=== PATIENT | female | born 1945 | race Caucasian/White ===

== ENCOUNTER → 2017-04-30 | Outpatient (CLI) | payer MEDICARE ==
[2017-04-30 08:49] LABS: ALT 40 U/L (9-52); AST 25 U/L (14-36); Alkaline Phosphatase 58 U/L (38-126); Anion Gap 13 mmol/L; Bilirubin, Delta 0.3 mg/dL (0.0-0.2); Blood Urea Nitrogen 12 mg/dL (7-17); Carbon Dioxide 25 mmol/L (22-30); Chloride 105 mmol/L (98-107); Cholesterol 203 mg/dL (<200); Glucose 90 mg/dL (74-99); HDL Cholesterol 28 mg/dL (40-60); Non-African American GFR(MDRD) 53 (>60 ml/min/1.73 sqM); Potassium 3.9 mmol/L (3.5-5.1); Sodium 143 mmol/L (137-145); Total Bilirubin 0.8 mg/dL (0.2-1.3); Total Protein 7.2 g/dL (6.3-8.2); Triglycerides 241 mg/dL (<150); Uric Acid 8.3 mg/dL (3.7-7.4)
== END | disposition home or self-care (01) ==
LOC: LABWHC1 08:12
PROVIDERS: ATTEND Internal Medicine
DX: E78.5 Hyperlipidemia, unspecified (principal); I10 Essential (primary) hypertension; M10.9 Gout, unspecified
CPT/HCPCS: 36415; 80051; 80061; 80076; 82565; 82947; 84520; 84550

== ENCOUNTER → 2017-07-23 | Outpatient (CLI) | payer MEDICARE ==
--- NOTE | 2017-07-23 14:21 | US ---
EXAMINATION TYPE: US carotid duplex BILAT DATE OF EXAM: 07/23/2017 COMPARISON: NONE CLINICAL HISTORY: I22.0 Hypertention. HTN, Double vision EXAM MEASUREMENTS: RIGHT: Peak Systolic Velocity (PSV) cm/sec ----- Right CCA: 102.2 ----- Right ICA: 113.5 ----- Right ECA: 204.7 ICA/CCA ratio: 1.1 RIGHT: End Diastole cm/sec ----- Right CCA: 19.3 ----- Right ICA: 24.1 ----- Right ECA: 15.4 LEFT: Peak Systolic Velocity (PSV) cm/sec ----- Left CCA: 73.0 ----- Left ICA: 117.4 ----- Left ECA: 149.7 ICA/CCA ratio: 1.6 LEFT: End Diastole cm/sec ----- Left CCA: 11.0 ----- Left ICA: 29.3 ----- Left ECA: 0.0 VERTEBRALS (direction of flow): Right Vertebral: Antegrade Left Vertebral: Antegrade Rhythm: Normal Bilateral ECA velocity. No significant stenosis. Wall thickening seen bilaterally. Plaque in bilat eral bulbs. Branch seen in left distal CCA. IMPRESSION: There is plaque noted bilaterally but no evidence of significant hemodynamic stenosis by carotid Doppler ultrasound indirect measurements (50% or less ). Criteria for Assigning % of Stenosis / Diameter reduction (Estimation based on the indirect measurements of the internal carotid artery velocities (ICA PSV). 1. Normal (no stenosis)=ICA PSV < 125 cm/s: ratio < 2.0: ICA EDV<40 cm/s. 2. Less than 50% stenosis=ICA PSV < 125 cm/s: ratio < 2.0: ICA EDV<40 cm/s. 3. 50 to 69% stenosis=ICA PSV of 125 to 230 cm/s: ration 2.0 ? 4.0: ICA EDV 40-100 cm/s. 4. Greater than 70% stenosis to near occlusion= ICA PSV > 230 cm/s: ratio > 4.0: ICA EDV > 100 cm/s. 5. Near occlusion= ICA PSV velocities may be low or undetectable: variable ratio and ICA EDV. 6. Total occlusion=unable to detect flow.
--- NOTE | 2017-07-23 19:10 | ECHOF ---
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 This was a technically adequate study. The left ventricular size is normal. There is mild concentric left ventricular hypertrophy. Overall left ventricular systolic function is normal with, an EF between 55 - 60 %. The right ventricle is normal in size. LA is moderately dilated 34-39 ml/m2 The right atrial size is normal. There is mild aortic stenosis present. Peak/mean gradient across the Aortic Valve is 22.53mmHg / 11.52mmHg. Mild mitral annular calcification present. Mild mitral regurgitation is present. Mild tricuspid regurgitation present. There is no evidence of pulmonary hypertension. The right ventricular systolic pressure, as measured by Doppler, is 10.65mmHg. There is no pulmonic regurgitation present. The aortic root size is normal. There is no pericardial effusion. CONCLUSIONS -------- 1. The left ventricular size is normal. 2. There is no evidence of pulmonary hypertension. 3. The right ventricular systolic pressure, as measured by Doppler, is 10.65mmHg. 4. There is no pulmonic regurgitation present. 5. The aortic root size is normal. 6. There is no pericardial effusion. 7. There is mild concentric left ventricular hypertrophy. 8. Overall left ventricular systolic function is normal with, an EF between 55 - 60 %. 9. LA is moderately dilated 34-39 ml/m2 10. There is mild aortic stenosis present. 11. Peak/mean gradient across the Aortic Valve is 22.53mmHg / 11.52mmHg. 12. Mild mitral annular calcification present. 13. Mild mitral regurgitation is present. 14. Mild tricuspid regurgitation present. [employer]AST[employer] HAND[employer] TECHNICIAN: Nica Hernandez RDCS
== END | disposition home or self-care (01) ==
LOC: RADUSMAIN 12:43
PROVIDERS: ATTEND Internal Medicine
DX: I65.23 Occlusion and stenosis of bilateral carotid arteries (principal); I08.3 Combined rheumatic disorders of mitral, aortic and tricuspid valves; I27.0 Primary pulmonary hypertension
CPT/HCPCS: 93306; 93880

== ENCOUNTER → 2017-10-11 | Outpatient (CLI) | payer MEDICARE ==
[2017-10-11 15:54] LABS: Blood Urea Nitrogen 21 mg/dL (7-17); Non-African American GFR(MDRD) 55 (>60 ml/min/1.73 sqM)
== END | disposition home or self-care (01) ==
LOC: LABWHC1 15:15
PROVIDERS: ATTEND Psychiatry & Neurology Pain Medicine
DX: Z01.812 Encounter for preprocedural laboratory examination (principal); H53.8 Other visual disturbances; E87.8 Other disorders of electrolyte and fluid balance, not elsewhere classified
CPT/HCPCS: 36415; 82565; 84520

== ENCOUNTER 2018-01-27 09:54 | Inpatient (IN) | payer MEDICARE ==
[2018-01-27] MEDS ORDERED: IPRATROPIUM-ALBUTEROL 3 ML NEB INHALATION STA (10:14)
--- NOTE | 2018-01-27 10:16 | ED ---
General Adult HPI - General Chief complaint: Shortness of Breath Stated complaint: SOB Time Seen by Provider: 01/27/18 10:04 Source: patient, RN notes reviewed Mode of arrival: wheelchair Limitations: no limitations - History of Present Illness Initial comments: 72-year-old female presenting with 3 week history of worsening cough and dyspnea. Patient states her cough is nonproductive. She has been experiencing subjective fever and chills primarily in the evenings. Denies any chest pain. States she was diagnosed with pneumonia, started on antibiotics steroids and breathing treatments, she failed to improve. She has been seen by her physician twice over the past 3 weeks. Patient states she's also had some epigastric and bilateral abdominal pain, no vomiting or diarrhea. Denies unilateral leg swelling, states she does have some mild bilateral lower extremity swelling. No calf tenderness. - Related Data Home Medications Medication Instructions Recorded Confirmed Bisoprolol-Hctz 10-6.25 mg [Ziac 1 tab PO PC-SUPPER 01/20/15 01/27/18 10-6.25 MG] Albuterol Nebulized [Ventolin 2.5 mg INHALATION RT-TID 01/27/18 01/27/18 Nebulized] Fluticasone/Vilanterol [Breo 1 inhalation PO RT-DAILY 01/27/18 01/27/18 Ellipta 100-25 Mcg Inhaler] Allergies Allergy/AdvReac Type Severity Reaction Status Date / Time atorvastatin calcium Allergy Swelling Verified 01/27/18 10:34 [From Lipitor] benazepril Allergy irregular Verified 01/27/18 10:34 heart rate amlodipine AdvReac muscle Verified 01/27/18 10:34 cramps Review of Systems ROS Statement: Those systems with pertinent positive or pertinent negative responses have been documented in the HPI. ROS Other: All systems not noted in ROS Statement are negative. Past Medical History Past Medical History: Hyperlipidemia, Hypertension History of Any Multi-Drug Resistant Organisms: None Reported Additional Past Surgical History / Comment(s): "bird breeder disease", vaginal polyps, lung biopsy 2006 d and c Past Psychological History: No Psychological Hx Reported Smoking Status: Former smoker Past Alcohol Use History: Rare Past Drug Use History: None Reported General Exam Limitations: no limitations General appearance: alert, in no apparent distress, appears intoxicated Eye exam: Present: normal appearance, PERRL Neck exam: Present: normal inspection. Absent: tenderness, meningismus Respiratory exam: Present: other (Good air entry, intermittent cough). Absent: respiratory distress Cardiovascular Exam: Present: regular rate, normal rhythm GI/Abdominal exam: Present: soft, tenderness (Mild epigastric tenderness). Absent: distended, guarding Extremities exam: Present: normal inspection, normal capillary refill. Absent: pedal edema, calf tenderness Neurological exam: Present: alert, oriented X3, CN II-XII intact. Absent: motor sensory deficit Psychiatric exam: Present: normal affect, normal mood Skin exam: Present: warm, dry, intact. Absent: cyanosis, diaphoretic Course Vital Signs 01/27/18 01/27/18 01/27/18 09:56 11:27 11:30 Temperature 97.1 F L Pulse Rate 96 82 84 Respiratory 18 20 Rate Blood Pressure 138/82 141/83 O2 Sat by Pulse 94 L 98 Oximetry 01/27/18 11:41 Temperature Pulse Rate 84 Respiratory Rate Blood Pressure O2 Sat by Pulse Oximetry EKG Findings - EKG Comments: EKG Findings:: EKG, normal sinus rhythm, incomplete left bundle, there is T- wave inversion and ST segment depression in aVL, and V5 and V6, there is T-wave inversion with Q waves in lead 3 and aVF. EKG obtained at 1046 Medical Decision Making - Medical Decision Making 72-year-old female presenting with dyspnea for 3 weeks as well as upper abdominal pain. Patient's pain has been constant over the past 3 weeks. She denies any chest pain. EKG is concerning for ischemia. Laboratory studies are obtained, and case is discussed with cardiology on-call Dr. Cook. Patient has significant lab abnormalities, including elevated white blood cell count, although she has been on steroids. D-dimer is 1.96, CAT scan is ordered , however this is unable to be obtained secondary to poor IV access. Given the ischemic changes on EKG, the patient has been heparinized prior computed tomography scan, she will go to the [facility] with cardiology, PE can be further evaluated after heart cath. Patient's troponin is elevated 0.325. Chest x-ray pending. Patient's symptoms of dyspnea and upper abdominal pain have been present for the past 2-3 weeks. They've been constant according to the patient. EKG changes are new compared to EKG in 2015. Patient taken to [facility] for elevated troponin and non-ST segment elevated OR. - Lab Data Result diagrams: 01/27/18 10:50 01/27/18 10:50 Lab Results 01/27/18 01/27/18 01/27/18 Range/Units 10:30 10:50 10:50 WBC 15.9 H (3.8-10.6) k/uL RBC 4.48 (3.80-5.40) m/uL Hgb 13.8 (11.4-16.0) gm/dL Hct 41.5 (34.0-46.0) % MCV 92.6 (80.0-100.0) fL MCH 30.7 (25.0-35.0) pg MCHC 33.2 (31.0-37.0) g/dL RDW 15.1 (11.5-15.5) % Plt Count 279 (150-450) k/uL Neutrophils % 88 % Lymphocytes % 6 % Monocytes % 3 % Eosinophils % 2 % Basophils % 0 % Neutrophils # 14.0 H (1.3-7.7) k/uL Lymphocytes # 0.9 L (1.0-4.8) k/uL Monocytes # 0.5 (0-1.0) k/uL Eosinophils # 0.3 (0-0.7) k/uL Basophils # 0.1 (0-0.2) k/uL PT (9.0-12.0) sec INR (<1.2) APTT (22.0-30.0) sec D-Dimer (<0.60) mg/L FEU Sodium (137-145) mmol/L Potassium (3.5-5.1) mmol/L Chloride (98-107) mmol/L Carbon Dioxide (22-30) mmol/L Anion Gap mmol/L BUN (7-17) mg/dL Creatinine (0.52-1.04) mg/dL Est GFR (CKD-EPI)AfAm (>60 ml/min/1.73 sqM) Est GFR (CKD-EPI)NonAf (>60 ml/min/1.73 sqM) Glucose (74-99) mg/dL Calcium (8.4-10.2) mg/dL Magnesium (1.6-2.3) mg/dL Total Bilirubin (0.2-1.3) mg/dL AST (14-36) U/L ALT (9-52) U/L Alkaline Phosphatase (38-126) U/L Total Creatine Kinase 40 (30-135) U/L CK-MB (CK-2) 1.6 (0.0-2.4) ng/mL CK-MB (CK-2) Rel Index 4.0 Troponin I 0.325 H* (0.000-0.034) ng/mL NT-Pro-B Natriuret Pep pg/mL Total Protein (6.3-8.2) g/dL Albumin (3.5-5.0) g/dL Lipase (23-300) U/L Influenza Type A RNA Not Detected (Not Detectd) Influenza Type B (PCR) Not Detected (Not Detectd) 01/27/18 01/27/18 01/27/18 Range/Units 10:50 10:50 10:50 WBC (3.8-10.6) k/uL RBC (3.80-5.40) m/uL Hgb (11.4-16.0) gm/dL Hct (34.0-46.0) % MCV (80.0-100.0) fL MCH (25.0-35.0) pg MCHC (31.0-37.0) g/dL RDW (11.5-15.5) % Plt Count (150-450) k/uL Neutrophils % % Lymphocytes % % Monocytes % % Eosinophils % % Basophils % % Neutrophils # (1.3-7.7) k/uL Lymphocytes # (1.0-4.8) k/uL Monocytes # (0-1.0) k/uL Eosinophils # (0-0.7) k/uL Basophils # (0-0.2) k/uL PT 11.2 (9.0-12.0) sec INR 1.2 H (<1.2) APTT 23.1 (22.0-30.0) sec D-Dimer 1.96 H (<0.60) mg/L FEU Sodium 142 (137-145) mmol/L Potassium 4.2 (3.5-5.1) mmol/L Chloride 105 (98-107) mmol/L Carbon Dioxide 23 (22-30) mmol/L Anion Gap 14 mmol/L BUN 27 H (7-17) mg/dL Creatinine 0.89 (0.52-1.04) mg/dL Est GFR (CKD-EPI)AfAm 76 (>60 ml/min/1.73 sqM) Est GFR (CKD-EPI)NonAf 66 (>60 ml/min/1.73 sqM) Glucose 186 H (74-99) mg/dL Calcium 9.4 (8.4-10.2) mg/dL Magnesium 1.9 (1.6-2.3) mg/dL Total Bilirubin 1.5 H (0.2-1.3) mg/dL AST 63 H (14-36) U/L ALT 101 H (9-52) U/L Alkaline Phosphatase 45 (38-126) U/L Total Creatine Kinase (30-135) U/L CK-MB (CK-2) (0.0-2.4) ng/mL CK-MB (CK-2) Rel Index Troponin I (0.000-0.034) ng/mL NT-Pro-B Natriuret Pep 9100 pg/mL Total Protein 6.1 L (6.3-8.2) g/dL Albumin 3.3 L (3.5-5.0) g/dL Lipase (23-300) U/L Influenza Type A RNA (Not Detectd) Influenza Type B (PCR) (Not Detectd) 01/27/18 Range/Units 10:50 WBC (3.8-10.6) k/uL RBC (3.80-5.40) m/uL Hgb (11.4-16.0) gm/dL Hct (34.0-46.0) % MCV (80.0-100.0) fL MCH (25.0-35.0) pg MCHC (31.0-37.0) g/dL RDW (11.5-15.5) % Plt Count (150-450) k/uL Neutrophils % % Lymphocytes % % Monocytes % % Eosinophils % % Basophils % % Neutrophils # (1.3-7.7) k/uL Lymphocytes # (1.0-4.8) k/uL Monocytes # (0-1.0) k/uL Eosinophils # (0-0.7) k/uL Basophils # (0-0.2) k/uL PT (9.0-12.0) sec INR (<1.2) APTT (22.0-30.0) sec D-Dimer (<0.60) mg/L FEU Sodium (137-145) mmol/L Potassium (3.5-5.1) mmol/L Chloride (98-107) mmol/L Carbon Dioxide (22-30) mmol/L Anion Gap mmol/L BUN (7-17) mg/dL Creatinine (0.52-1.04) mg/dL Est GFR (CKD-EPI)AfAm (>60 ml/min/1.73 sqM) Est GFR (CKD-EPI)NonAf (>60 ml/min/1.73 sqM) Glucose (74-99) mg/dL Calcium (8.4-10.2) mg/dL Magnesium (1.6-2.3) mg/dL Total Bilirubin (0.2-1.3) mg/dL AST (14-36) U/L ALT (9-52) U/L Alkaline Phosphatase (38-126) U/L Total Creatine Kinase (30-135) U/L CK-MB (CK-2) (0.0-2.4) ng/mL CK-MB (CK-2) Rel Index Troponin I (0.000-0.034) ng/mL NT-Pro-B Natriuret Pep pg/mL Total Protein (6.3-8.2) g/dL Albumin (3.5-5.0) g/dL Lipase 279 (23-300) U/L Influenza Type A RNA (Not Detectd) Influenza Type B (PCR) (Not Detectd) Critical Care Time Critical Care Time: Yes Total Critical Care Time: 35 Disposition Clinical Impression: NSTEMI (non-ST elevated myocardial infarction), Elevated d-dimer Disposition: ADMITTED IP TO THIS HOSP Condition: Serious Referrals: Ramón Pollack MD [Primary Care Provider] - 1-2 days Decision to Admit Reason: Admit from EC Decision Date: 01/27/18 Decision Time: 13:21
[2018-01-27] MEDS ORDERED: ASPIRIN 325 MG TAB PO STA (10:50)
[2018-01-27 11:06] LABS: Basophils # (A) 0.1 k/uL (0-0.2); Basophils % (A) 0 %; Eosinophils # (A) 0.3 k/uL (0-0.7); Eosinophils % (A) 2 %; HCT 41.5 % (34.0-46.0); HGB 13.8 gm/dL (11.4-16.0); Lymphocytes # (A) 0.9 k/uL (1.0-4.8); Lymphocytes % (A) 6 %; MCH 30.7 pg (25.0-35.0); MCHC 33.2 g/dL (31.0-37.0); MCV 92.6 fL (80.0-100.0); Mean Platelet Volume 7.1; Monocytes # (A) 0.5 k/uL (0-1.0); Monocytes % (A) 3 %; Neutrophils % (A) 88 %; Platelet Count 279 k/uL (150-450); RBC 4.48 m/uL (3.80-5.40); RDW 15.1 % (11.5-15.5); WBC 15.9 k/uL (3.8-10.6)
[2018-01-27] MEDS ORDERED: HEPARIN SODIUM,PORCINE 5,000 UNIT/ML 1 ML VIAL IV ONE (11:13)
[2018-01-27] MEDS ORDERED: HEPARIN SODIUM,PORCINE 5,000 UNIT/ML 1 ML VIAL IV PRN (11:13)
[2018-01-27 11:17] LABS: Albumin 3.3 g/dL (3.5-5.0); Calcium 9.4 mg/dL (8.4-10.2); Magnesium 1.9 mg/dL (1.6-2.3); Potassium 4.2 mmol/L (3.5-5.1); Total Bilirubin 1.5 mg/dL (0.2-1.3); Total Protein 6.1 g/dL (6.3-8.2)
[2018-01-27 11:18] LABS: D-Dimer 1.96 mg/L FEU (<0.60); INR 1.2 (<1.2); Partial Thromboplastin Time 23.1 sec (22.0-30.0); Prothrombin Time 11.2 sec (9.0-12.0)
[2018-01-27 11:35] LABS: Creatine Kinase MB 1.6 ng/mL (0.0-2.4)
[2018-01-27] MEDS ORDERED: RX INFO: IV CONTRAST WAS GIVEN 1 EACH MISC MISCELLANE PRN ×2 (11:39→14:11)
[2018-01-27 11:42] LABS: Troponin I 0.325 ng/mL (0.000-0.034)
[2018-01-27] MEDS: HEPARIN SOD,PORK IN 0.45% NACL 25,000 UNIT in 0.45% NACL 1 500ML.BAG IV SCH (11:51)
[2018-01-27] MEDS ORDERED: FUROSEMIDE 10 MG/ML 4 ML VIAL IV STA (12:07)
[2018-01-27] MEDS ORDERED: NALOXONE 0.4 MG/ML 1 ML VIAL IV PRN (13:08)
[2018-01-27] MEDS ORDERED: LIDOCAINE 2% INJ 20 MG/ML (20 ML MDV) ONE (13:39)
[2018-01-27] MEDS ORDERED: MIDAZOLAM 2 MG/2 ML VIAL ONE (13:40)
[2018-01-27] MEDS ORDERED: SODIUM CHLORIDE 0.9% 1,000 ML IV ONE (13:43)
[2018-01-27] MEDS ORDERED: MIDAZOLAM 2 MG/2 ML VIAL IV ONE (13:48)
[2018-01-27] MEDS ORDERED: LIDOCAINE 2% INJ 20 MG/ML SQ ONE (13:50)
[2018-01-27] MEDS ORDERED: FUROSEMIDE 10 MG/ML 4 ML VIAL ONE (14:01)
[2018-01-27] MEDS ORDERED: FUROSEMIDE 10 MG/ML 4 ML VIAL IV ONE (14:05)
[2018-01-27] MEDS ORDERED: IOPAMIDOL-370 125ML BTL INJ ONE (14:06)
[2018-01-27] MEDS ORDERED: SODIUM CHLORIDE 0.9% 1,000 ML IV SCH (14:15)
--- NOTE | 2018-01-27 14:17 | P.CRDCN ---
History of Present Illness Consult date: 01/27/18 Chief complaint: Shortness of breath History of present illness: This is a pleasant 73-year-old female patient with a past medical history significant for hypertension and dyslipidemia with no documented history of coronary artery disease or congestive heart failure presented to the hospital complaining of shortness of breath for the last 3 weeks. The patient stated that the shortness of breath was started about 3 weeks ago. Beside that she describes epigastric discomfort. She stated she developed bilateral lower extremities edema and she was seen by her primary care physician who put her on Lasix with improvement in the edema. The patient did not have any symptoms of chest pain or discomfort, dizziness or lightheadedness , or any syncope. She does have epigastric discomfort mainly. The EKG showed sinus rhythm with nonspecific changes in the inferior leads. There was also some ST and T wave abnormalities seems to be diffuse. Beside that the d-dimer came in to be abnormal and the patient is in process to have a CTA of the chest to rule out any PE. The BNP came in to be also severely abnormal and the patient was given Lasix IV in the emergency room. The first set of troponin also came in to be slightly abnormal. On physical examination, the patient does have bilateral crackles in both lung almanzar. There was very mild bilateral lower extremities edema noted. 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 The patient tolerated the procedure very well. The left ventricular end-diastolic pressure was about 45 mmHg. Past Medical History Past Medical History: Hyperlipidemia, Hypertension History of Any Multi-Drug Resistant Organisms: None Reported Additional Past Surgical History / Comment(s): "bird breeder disease", vaginal polyps, lung biopsy 2006 d and c Past Psychological History: No Psychological Hx Reported Smoking Status: Former smoker Past Alcohol Use History: Rare Past Drug Use History: None Reported Medications and Allergies Home Medications Medication Instructions Recorded Confirmed Type Bisoprolol-Hctz 10-6.25 mg [Ziac 1 tab PO PC-SUPPER 01/20/15 01/27/18 History 10-6.25 MG] Albuterol Nebulized [Ventolin 2.5 mg INHALATION RT-TID 01/27/18 01/27/18 History Nebulized] Fluticasone/Vilanterol [Breo 1 inhalation PO RT-DAILY 01/27/18 01/27/18 History Ellipta 100-25 Mcg Inhaler] Allergies Allergy/AdvReac Type Severity Reaction Status Date / Time atorvastatin calcium Allergy Swelling Verified 01/27/18 10:34 [From Lipitor] benazepril Allergy irregular Verified 01/27/18 10:34 heart rate amlodipine AdvReac muscle Verified 01/27/18 10:34 cramps Physical Exam Vitals: Vital Signs Temp Pulse Resp BP Pulse Ox 01/27/18 11:41 84 01/27/18 11:30 84 20 141/83 98 01/27/18 11:27 82 01/27/18 09:56 97.1 F L 96 18 138/82 94 L Intake and Output 01/26/18 01/27/18 01/27/18 22:59 06:59 14:59 Other: Weight 81.647 kg - Constitutional General appearance: mild distress - Respiratory Respiratory: bilateral: rales - Cardiovascular Rhythm: regular Heart sounds: normal: S1, S2 Results 01/27/18 10:50 01/27/18 10:50 Cardiac Enzymes 01/27/18 01/27/18 Range/Units 10:50 10:50 AST 63 H (14-36) U/L CK-MB (CK-2) 1.6 (0.0-2.4) ng/mL Troponin I 0.325 H* (0.000-0.034) ng/mL Coagulation 01/27/18 Range/Units 10:50 PT 11.2 (9.0-12.0) sec APTT 23.1 (22.0-30.0) sec CBC 01/27/18 Range/Units 10:50 WBC 15.9 H (3.8-10.6) k/uL RBC 4.48 (3.80-5.40) m/uL Hgb 13.8 (11.4-16.0) gm/dL Hct 41.5 (34.0-46.0) % Plt Count 279 (150-450) k/uL Comprehensive Metabolic Panel 01/27/18 Range/Units 10:50 Sodium 142 (137-145) mmol/L Potassium 4.2 (3.5-5.1) mmol/L Chloride 105 (98-107) mmol/L Carbon Dioxide 23 (22-30) mmol/L BUN 27 H (7-17) mg/dL Creatinine 0.89 (0.52-1.04) mg/dL Glucose 186 H (74-99) mg/dL Calcium 9.4 (8.4-10.2) mg/dL AST 63 H (14-36) U/L ALT 101 H (9-52) U/L Alkaline Phosphatase 45 (38-126) U/L Total Protein 6.1 L (6.3-8.2) g/dL Albumin 3.3 L (3.5-5.0) g/dL Current Medications Generic Name Dose Route Start Last Admin Trade Name Freq PRN Reason Stop Dose Admin Heparin Sodium (Porcine) 0 unit 01/27/18 11:13 Heparin IV PER PROTOCOL PRN Low PTT Protocol Heparin Sodium/Sodium Chloride 500 mls @ 19.59 mls/hr 01/27/18 11:15 11:51 25,000 unit/ Sodium Chloride IV 12 units/kg/hr .Q24H ERIN 19.59 mls/hr Protocol Administration 12 UNITS/KG/HR Miscellaneous Information 1 each 01/27/18 11:39 Rx Info: Iv Contrast Was Given MISCELLANE 01/29/18 11:39 DAILY PRN Per Protocol Intake and Output 01/26/18 01/27/18 01/27/18 22:59 06:59 14:59 Other: Weight 81.647 kg Patient Weight 01/28/18 06:59 Weight 81.647 kg 01/27/18 10:50 01/27/18 10:50 Assessment and Plan Assessment: assessment #1 severe triple-vessel coronary artery disease #2 severe ischemic cardiomyopathy. #3 congestive heart failure exacerbation secondary to systolic dysfunction #4 hypertension #5 dyslipidemia Plan #1 I will start the patient on aspirin, metoprolol, lisinopril, and Aldactone. #2 add Lasix IV to the current medical treatment as well #3 continue monitor the kidney function and electrolytes #4 follow-up on the echocardiogram #5 obtain a consult from cardiothoracic surgeon for the evaluation for CABG #6 ICU admission #7 follow-up with the patient. Thank you for allowing us participate in her care and we'll continue following up with the patient
[2018-01-27 15:13] LABS: Glucose,Whole Blood 87 mg/dL (75-99)
--- NOTE | 2018-01-27 15:53 | XR ---
EXAMINATION TYPE: XR chest 1V portable DATE OF EXAM: 01/27/2018 COMPARISON: 07/16/2010 HISTORY: Preop cardiac surgery TECHNIQUE: Single frontal view of the chest is obtained. FINDINGS: Diffuse interstitial pattern and cardiomegaly. No pleural effusion or pneumothorax. No con solidation. Arthropathy of the shoulders. IMPRESSION: 1. Diffuse interstitial pattern with cardiomegaly correlate for venous congestion. Otherwise consider interstitial pneumonitis or atypical pneumonia.
[2018-01-27 15:54] LABS: Appearance,Urine Clear (Clear); Bacteria,Urine Rare /hpf; Bilirubin,Urine Negative (Negative); Blood,Urine Small (Negative); Color,Urine Colorless; Glucose,Urine (UA) Negative (Negative); Ketones,Urine Negative (Negative); Leukocyte Esterase,Urine Negative (Negative); Mucus,Urine Rare /hpf; Nitrite,Urine Negative (Negative); PH, Urine 6.5 (5.0-8.0); Protein,Urine Negative (Negative); RBC,Urine 1 /hpf (0-5); Specific Gravity,Urine 1.005 (1.001-1.035); Squamous Epithelial Cell,Urine <1 /hpf (0-4); Urobilinogen,Urine <2.0 mg/dL (<2.0); WBC,Urine <1 /hpf (0-5)
--- NOTE | 2018-01-27 16:19 | CC ---
CARDIAC CATHETERIZATION REPORT DATE OF SERVICE: January 27, 2018 PERFORMING PHYSICIAN: Domingo Cook MD, fuel assembler. PROCEDURE PERFORMED: 1. Selective right and left coronary angiogram. 2. Left heart catheterization. INDICATION: This is a pleasant 72-year-old female patient who presented to the emergency room with 3 weeks history of shortness of breath. She was in mild congestive heart failure exacerbation. The cardiac enzymes came in to be slightly abnormal. The BNP came into be severely elevated. The EKG showed some ST changes in the inferolateral leads. APPROACH: Right common femoral artery. COMPLICATION: None. LEVEL OF SEDATION: Moderate with sedation length of 14 minutes. PROCEDURE DESCRIPTION: After obtaining an informed consent, the patient was brought to cardiac microbiological lab technician. The right common femoral artery was cannulated using micropuncture technique and a micropuncture wire passed easily, then I placed a 6-Amharic sheath in the right common femoral artery. After that, I did selective right and left coronary angiogram using JR4 and JL4 catheters. Left heart catheterization was performed using a pigtail catheter. The procedure was completed without any complication. SELECTIVE CORONARY ANGIOGRAM: 1. The RCA is chronically occluded in the midportion. 2. The left main has a critical lesion appeared to be in the range of 80% to 90%. It bifurcates into left circumflex and left anterior descending artery. 3. Left circumflex is a medium caliber vessel and it is a nondominant vessel. The ostial circ appeared to be involved in the plaque from the left main and appeared to be diseased in the range of 70-80%. The proximal circ appeared to have mild disease only and gives rise into a medium size OM branch which seems to be angiographically normal. The left circumflex continues after that as a medium caliber vessel in the AV groove. 4. The LAD: The ostial LAD is involved in the plaque from the left main and the plaque seems to be in the range of 70%. The proximal LAD has another tubular lesion in the range of 70% to 80%. The mid and distal LAD appear to have mild disease only. The LAD gives rise into a large sized diagonal branch which bifurcates into 2 subbranches and appeared to have mild disease only. CONCLUSION: 1. Chronic total occlusion of the RCA. 2. Critical disease involving the left main. 3. Critical disease involving the ostial left circumflex. 4. Critical disease involving the ostial and proximal LAD. POSTPROCEDURE MANAGEMENT: Patient to be evaluated for coronary artery bypass grafting. MMODL / IJN: [id number] /
--- NOTE | 2018-01-27 16:28 | P.GSCN ---
History of Present Illness Consult date: 01/27/18 Reason for Consult: Symptomatic multivessel coronary artery disease, non-ST elevated myocardial infarction this admission. Myocardial revascularization recommendations. Requesting physician: Domingo Cook History of present illness: This is a 72-year-old female patient who is followed by Dr. Pollack on an outpatient basis. The patient has a medical history significant for hypertension , hyperlipidemia, gout, obesity with a BMI of 32.9, recent history of pneumonia , and remote history of nicotine dependence in which she quit smoking 30 years ago. Recently, the patient has had complaints of shortness of breath and bilateral lower leg swelling over the past 2-3 weeks. She reports, early this morning she felt that her shortness of breath has progressively been getting worse and had complaints of pain and tightness to her neck which radiated to her ears. She also has complaints of right upper quadrant abdominal pain. The patient denies any complaints of nausea, vomiting, dizziness or syncope. According to the patient and her daughter, over the last 2 weeks she has been evaluated by Dr. Pollack. Due to the patient's symptomology she completed a course of oral antibiotic treatment for a pneumonia, cough medicine, a steroid Medrol pack and Lasix. Her laboratory results on admission showed a WBC count of 15.9 , BUN 27, creatinine 0.89, glucose of 186, AST 63, ALT 101, and a troponin of 0.325. A 12-lead EKG was completed which showed normal sinus rhythm with nonspecific changes in her inferior leads with a heart rate 84 bpm. Subsequently the patient was seen by Dr. Cook from cardiology and was taken for an urgent heart catheterization which demonstrated an 80% stenosis to her left main coronary artery, a totally occluded right coronary artery, and 80% stenosis to her circumflex coronary artery, and an 80% stenosis to her proximal left anterior descending coronary artery. Due to the patient's presenting symptoms and cardiac catheterization results, a consult was placed to Dr. Thuan Segura from cardiothoracic surgery to evaluate the patient for myocardial revascularization surgery. Review of Systems A 14 point review of systems was completed and was negative except as mentioned in HPI. 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 History of Any Multi-Drug Resistant Organisms: None Reported Additional Past Surgical History / Comment(s): "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, D&C-vaginal polyps. Past Anesthesia/Blood Transfusion Reactions: No Reported Reaction Past Psychological History: No Psychological Hx Reported Smoking Status: Former smoker (Quit 30 years ago.) Past Alcohol Use History: None Reported, Rare Past Drug Use History: None Reported - Past Family History Mother Family Medical History: Myocardial Infarction ([place]) ( from myocardial infarction at age 69.) Father Family Medical History: Myocardial Infarction ([place]) ( from a pericardial infarction at age 69) Brother(s) Family Medical History: Neurologic Disorder (Multiple sclerosis) Sister(s) Family Medical History: Cancer (Breast and uterine), Myocardial Infarction (LA) (At age 68) Medications and Allergies Home Medications Medication Instructions Recorded Confirmed Type Bisoprolol-Hctz 10-6.25 mg [Ziac 1 tab PO PC-SUPPER 01/20/15 01/27/18 History 10-6.25 MG] Albuterol Nebulized [Ventolin 2.5 mg INHALATION RT-TID 01/27/18 01/27/18 History Nebulized] Fluticasone/Vilanterol [Breo 1 inhalation PO RT-DAILY 01/27/18 01/27/18 History Ellipta 100-25 Mcg Inhaler] Allergies Allergy/AdvReac Type Severity Reaction Status Date / Time atorvastatin calcium Allergy Swelling Verified 01/27/18 10:34 [From Lipitor] benazepril Allergy irregular Verified 01/27/18 10:34 heart rate amlodipine AdvReac muscle Verified 01/27/18 10:34 cramps Surgical - Exam Vital Signs Temp Pulse Resp BP Pulse Ox 97.1 F L 96 18 138/82 94 L 01/27/18 09:56 01/27/18 09:56 01/27/18 09:56 01/27/18 09:56 01/27/18 09:56 - General well developed, well nourished, no distress, moderate pain (Right upper quadrant abdomen), obese - Eyes PERRL, normal ocular movement - ENT normal pinna, normal nares, normal mucosa, no hearing loss, no congestion, dentures - Neck Neck is supple, no lymphadenopathy, no thyroidomegaly. no masses, no bruits, trachea midline, no venous distension - Respiratory Few scattered crackles to her bilateral bases. Respirations are symmetrical and nonlabored. Oxygen saturation are 98% on 4 L nasal cannula. - Cardiovascular Regular rhythm and rate. S1 and S2 present, negative for S3, gallop or murmur. +2 edema to her bilateral lower extremities. Bedside telemetry showing sinus rhythm heart rate 71. - Abdomen Active bowel sounds to all 4 abdominal quadrants. No organomegaly, no guarding or rigidity. Abdomen: soft, tender (To her right upper quadrant) - Genitourinary Deferred - Rectum Deferred - Integumentary no rash, no growths, no abnormal pigmentation - Neurologic normal coordination, normal sensation - Musculoskeletal normal gait, normal posture - Psychiatric oriented to time, oriented to person, oriented to place, speech is normal, memory intact Results - Labs 01/27/18 10:50 01/27/18 10:50 Abnormal Lab Results - Last 24 Hours (Table) 01/27/18 01/27/18 01/27/18 Range/Units 10:50 10:50 10:50 WBC 15.9 H (3.8-10.6) k/uL Neutrophils # 14.0 H (1.3-7.7) k/uL Lymphocytes # 0.9 L (1.0-4.8) k/uL INR (<1.2) D-Dimer (<0.60) mg/L FEU BUN 27 H (7-17) mg/dL Glucose 186 H (74-99) mg/dL Total Bilirubin 1.5 H (0.2-1.3) mg/dL AST 63 H (14-36) U/L ALT 101 H (9-52) U/L Troponin I 0.325 H* (0.000-0.034) ng/mL Total Protein 6.1 L (6.3-8.2) g/dL Albumin 3.3 L (3.5-5.0) g/dL Triglycerides (<150) mg/dL LDL Cholesterol, Calc (0-99) mg/dL HDL Cholesterol (40-60) mg/dL 01/27/18 01/27/18 Range/Units 10:50 10:50 WBC (3.8-10.6) k/uL Neutrophils # (1.3-7.7) k/uL Lymphocytes # (1.0-4.8) k/uL INR 1.2 H (<1.2) D-Dimer 1.96 H (<0.60) mg/L FEU BUN (7-17) mg/dL Glucose (74-99) mg/dL Total Bilirubin (0.2-1.3) mg/dL AST (14-36) U/L ALT (9-52) U/L Troponin I (0.000-0.034) ng/mL Total Protein (6.3-8.2) g/dL Albumin (3.5-5.0) g/dL Triglycerides 172 H (<150) mg/dL LDL Cholesterol, Calc 113 H (0-99) mg/dL HDL Cholesterol 30 L (40-60) mg/dL Diabetes panel 01/27/18 01/27/18 Range/Units 10:50 10:50 Sodium 142 (137-145) mmol/L Potassium 4.2 (3.5-5.1) mmol/L Chloride 105 (98-107) mmol/L Carbon Dioxide 23 (22-30) mmol/L BUN 27 H (7-17) mg/dL Creatinine 0.89 (0.52-1.04) mg/dL Glucose 186 H (74-99) mg/dL Calcium 9.4 (8.4-10.2) mg/dL AST 63 H (14-36) U/L ALT 101 H (9-52) U/L Alkaline Phosphatase 45 (38-126) U/L Total Protein 6.1 L (6.3-8.2) g/dL Albumin 3.3 L (3.5-5.0) g/dL Triglycerides 172 H (<150) mg/dL HDL Cholesterol 30 L (40-60) mg/dL Thyroid panel 01/27/18 Range/Units 10:50 TSH 3.030 (0.465-4.680) mIU/L Calcium panel 01/27/18 Range/Units 10:50 Calcium 9.4 (8.4-10.2) mg/dL Albumin 3.3 L (3.5-5.0) g/dL Pituitary panel 01/27/18 01/27/18 Range/Units 10:50 10:50 Sodium 142 (137-145) mmol/L Potassium 4.2 (3.5-5.1) mmol/L Chloride 105 (98-107) mmol/L Carbon Dioxide 23 (22-30) mmol/L BUN 27 H (7-17) mg/dL Creatinine 0.89 (0.52-1.04) mg/dL Glucose 186 H (74-99) mg/dL Calcium 9.4 (8.4-10.2) mg/dL TSH 3.030 (0.465-4.680) mIU/L Adrenal panel 01/27/18 Range/Units 10:50 Sodium 142 (137-145) mmol/L Potassium 4.2 (3.5-5.1) mmol/L Chloride 105 (98-107) mmol/L Carbon Dioxide 23 (22-30) mmol/L BUN 27 H (7-17) mg/dL Creatinine 0.89 (0.52-1.04) mg/dL Glucose 186 H (74-99) mg/dL Calcium 9.4 (8.4-10.2) mg/dL Total Bilirubin 1.5 H (0.2-1.3) mg/dL AST 63 H (14-36) U/L ALT 101 H (9-52) U/L Alkaline Phosphatase 45 (38-126) U/L Total Protein 6.1 L (6.3-8.2) g/dL Albumin 3.3 L (3.5-5.0) g/dL - Imaging Chest x-ray: image reviewed EKG: image reviewed Assessment and Plan (1) Coronary artery disease Current Visit: Yes Status: Acute Code(s): I25.10 - ATHSCL HEART DISEASE OF [place] CORONARY ARTERY W/O ANG PCTRS SNOMED Code(s): 71705911 (2) Hypertension Current Visit: Yes Status: Acute Code(s): I10 - ESSENTIAL (PRIMARY) HYPERTENSION SNOMED Code(s): 40852612 (3) Hyperlipidemia Current Visit: Yes Status: Acute Code(s): E78.5 - HYPERLIPIDEMIA, UNSPECIFIED SNOMED Code(s): 62578829 (4) Acute exacerbation of congestive heart failure Current Visit: Yes Status: Acute Code(s): I50.9 - HEART FAILURE, UNSPECIFIED SNOMED Code(s): 92717367 (5) Ischemic cardiomyopathy Current Visit: Yes Status: Acute Code(s): I25.5 - ISCHEMIC CARDIOMYOPATHY SNOMED Code(s): 719004731 (6) Elevated d-dimer Current Visit: Yes Status: Acute Code(s): R79.89 - OTHER SPECIFIED ABNORMAL FINDINGS OF BLOOD CHEMISTRY SNOMED Code(s): 273776935 (7) NSTEMI (non-ST elevated myocardial infarction) Current Visit: Yes Status: Acute Code(s): I21.4 - NON-ST ELEVATION (NSTEMI) MYOCARDIAL INFARCTION SNOMED Code(s): 631617432 Plan: The patient was seen and examined. Her chart and diagnostics were reviewed. The patient was seen and examined by Dr. Thuan Segura. Preoperative testing initiated. Preoperative teaching initiated. Her heart catheterization results were discussed with the patient by Dr. Segura, risks and benefits of surgery were discussed with the patient. The patient would like to proceed with myocardial revascularization surgery and will be scheduled for myocardial revascularization surgery early next week. Recommendations to optimize her medically, treating her congestive heart failure exacerbation with diuretics. Continue to maximize her medical therapy with aspirin, metoprolol, SCAR inhibitor and statin. We will continue to follow the patient, further recommendations to follow. Thank you Dr. Cook. for this consult and we look for to working with you in the care of your patient. Time with Patient: Greater than 30
[2018-01-27] MEDS: CRESTOR 20 MG PO SCH (20:59)
[2018-01-27] MEDS ORDERED: NON-FORMULARY DRUG ONE (21:00)
[2018-01-27] MEDS ORDERED: ATORVASTATIN 80 MG TAB PO SCH (21:00)
[2018-01-27] MEDS ORDERED: MD COMMUNICATION TO PHARMACY 1 EACH MISC PO SCH (21:00)
[2018-01-27] MEDS: FUROSEMIDE 10 MG/ML 4 ML VIAL IV SCH (21:01)
--- NOTE | 2018-01-27 23:01 | P.HPIM ---
History of Present Illness H&P Date: 01/27/18 Chief Complaint: Shortness of breath Patient is a 72-year-old female with a known history of hypertension, hyperlipidemia came to ER with complaints of exertional shortness of breath worsening for the past 3 weeks. Patient says that her shortness of breath started about 3 weeks ago which get worse when she walks or does any work. Patient is also complaining of epigastric discomfort and felt like a bandlike sensation across the abdomen. Patient was seen by her primary care physician. Patient was treated with antibiotics steroids and breathing treatments but failed to improve. Patient was also given Lasix for her lower action edema which has improved with. Patient has been experiencing symptoms for the past 3 weeks and unable to tolerate any more which made her to come to ER. Patient otherwise denied any fever or chills. Patient does have nausea. No diarrhea. Daryl EKG showed sinus with nonspecific inferior leads BNP 9100 Troponin 0.325 Patient was seen by cardiology and was taken to cardiac catheterization which revealed triple vessel disease. Currently cardiac surgery has been consulted. Patient does have elevated d-dimer 1.96 Chest x-ray showed diffuse interstitial pattern with cardiomegaly Correlate for pulmonary venous congestion. Review of Systems Constitutional: Patient denies any fever or chills . No generalized weakness or weight loss. Abdomen: Patient denied nausea vomiting and diarrhea and abdominal pain. Cardiovascular: Epigastric chest discomfort. Exertional shortness of breath leg swelling Respiratory: patient denied any cough is from production. No shortness of breath Neurologic: Patient denied any numbness or tingling headache. Musculoskeletal: Patient denies any complaints of joint swelling or deformity. Skin: Negative Psychiatric: Negative Endocrine: No heat or cold intolerance. No recent weight gain. Genitourinary: No dysuria or hematuria. 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 History of Any Multi-Drug Resistant Organisms: None Reported Additional Past Surgical History / Comment(s): "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, D&C-vaginal polyps. Past Anesthesia/Blood Transfusion Reactions: No Reported Reaction Past Psychological History: No Psychological Hx Reported Smoking Status: Former smoker (Quit 30 years ago.) Past Alcohol Use History: None Reported, Rare Past Drug Use History: None Reported - Past Family History Mother Family Medical History: Myocardial Infarction ([place]) ( from myocardial infarction at age 69.) Father Family Medical History: Myocardial Infarction (ID) ( from a pericardial infarction at age 69) Brother(s) Family Medical History: Neurologic Disorder (Multiple sclerosis) Sister(s) Family Medical History: Cancer (Breast and uterine), Myocardial Infarction ([place]) (At age 68) Medications and Allergies Home Medications Medication Instructions Recorded Confirmed Type Bisoprolol-Hctz 10-6.25 mg [Ziac 1 tab PO PC-SUPPER 01/20/15 01/27/18 History 10-6.25 MG] Albuterol Nebulized [Ventolin 2.5 mg INHALATION RT-TID 01/27/18 01/27/18 History Nebulized] Fluticasone/Vilanterol [Breo 1 inhalation PO RT-DAILY 01/27/18 01/27/18 History Ellipta 100-25 Mcg Inhaler] Allergies Allergy/AdvReac Type Severity Reaction Status Date / Time atorvastatin calcium Allergy Swelling Verified 01/27/18 10:34 [From Lipitor] benazepril Allergy irregular Verified 01/27/18 10:34 heart rate amlodipine AdvReac muscle Verified 01/27/18 10:34 cramps Physical Exam Vitals: Vital Signs Temp Pulse Resp BP Pulse Ox 01/27/18 15:00 72 22 98 01/27/18 14:56 97.9 F 78 20 120/79 98 01/27/18 13:00 22 01/27/18 11:41 84 01/27/18 11:30 84 20 141/83 98 01/27/18 11:27 82 01/27/18 09:56 97.1 F L 96 18 138/82 94 L Intake and Output 01/27/18 01/27/18 01/27/18 06:59 14:59 22:59 Intake Total 200 Balance 200 Intake: IV 200 Other: Weight 81.647 kg PHYSICAL EXAMINATION: Patient is lying in the bed comfortably, no acute distress, awake alert and oriented.. HEENT: Normocephalic. Neck is supple. Pupils reactive. Nostrils clear. Oral cavity is moist. Ears reveal no drainage. Neck reveals no JVD, carotid bruits, or thyromegaly. CHEST EXAMINATION: Trachea is central. Symmetrical expansion. Bibasilar crackles. No wheezing noted rhonchi. CARDIAC: Normal S1, S2 with no gallops. No murmurs ABDOMEN: Soft. Bowel sounds normal. No organomegaly. No abdominal bruits. Extremities: Trace edema. No clubbing or cyanosis Neurologically awake, alert, oriented x3 with well-coordinated movements. No focal deficits noted Skin: No rash or skin lesions. Psychiatric: Cooperative. Nonsuicidal Musculoskeletal: No joint swelling or deformity. Normal range of motion. Results CBC & Chem 7: 01/27/18 10:50 01/27/18 10:50 Labs: Abnormal Lab Results - Last 24 Hours (Table) 01/27/18 01/27/18 01/27/18 Range/Units 10:50 10:50 10:50 WBC 15.9 H (3.8-10.6) k/uL Neutrophils # 14.0 H (1.3-7.7) k/uL Lymphocytes # 0.9 L (1.0-4.8) k/uL INR (<1.2) D-Dimer (<0.60) mg/L FEU BUN 27 H (7-17) mg/dL Glucose 186 H (74-99) mg/dL Total Bilirubin 1.5 H (0.2-1.3) mg/dL AST 63 H (14-36) U/L ALT 101 H (9-52) U/L Troponin I 0.325 H* (0.000-0.034) ng/mL Total Protein 6.1 L (6.3-8.2) g/dL Albumin 3.3 L (3.5-5.0) g/dL Triglycerides (<150) mg/dL LDL Cholesterol, Calc (0-99) mg/dL HDL Cholesterol (40-60) mg/dL Urine Blood (Negative) Urine Bacteria (None) /hpf Urine Mucus (None) /hpf 01/27/18 01/27/18 01/27/18 Range/Units 10:50 10:50 15:36 WBC (3.8-10.6) k/uL Neutrophils # (1.3-7.7) k/uL Lymphocytes # (1.0-4.8) k/uL INR 1.2 H (<1.2) D-Dimer 1.96 H (<0.60) mg/L FEU BUN (7-17) mg/dL Glucose (74-99) mg/dL Total Bilirubin (0.2-1.3) mg/dL AST (14-36) U/L ALT (9-52) U/L Troponin I (0.000-0.034) ng/mL Total Protein (6.3-8.2) g/dL Albumin (3.5-5.0) g/dL Triglycerides 172 H (<150) mg/dL LDL Cholesterol, Calc 113 H (0-99) mg/dL HDL Cholesterol 30 L (40-60) mg/dL Urine Blood Small H (Negative) Urine Bacteria Rare H (None) /hpf Urine Mucus Rare H (None) /hpf Thrombosis Risk Factor Assmnt - DVT/VTE Prophylaxis DVT/VTE Prophylaxis: Pharmacologic Prophylaxis ordered - Choose All That Apply Each Factor Represents 1 point: Acute ID, Medical pt on bed rest Each Risk Factor Represents 2 Points: Age 61-74 years Thrombosis Risk Factor Assessment Total Risk Factor Score: 4 Thrombosis Risk Factor Assessment Level: Moderate Risk Assessment and Plan Assessment: Acute non-ST elevated ID. Status post Cardiac catheterization showed triple- vessel disease Exertional shortness of breath Acute CHF with systolic dysfunction Severe ischemic myopathy Leukocytosis. Likely reactive. Follow-up repeat CBC tomorrow Hypertension hyperlipidemia Obesity Plan: Patient will be continued on IV Lasix. Continue with the aspirin statins and metoprolol and lisinopril and Aldactone. Cardiology and cardiac surgery is following. We'll continue to monitor renal function. Follow-up CBC and BMP tomorrow. Continue to monitor the patient in ICU. Further recommendations based on the clinical course. Prognosis is guarded. Time with Patient: Greater than 30
[2018-01-27] MEDS: METOPROLOL TARTRATE 12.5 MG TAB PO SCH (23:27)
[2018-01-28 05:35] LABS: Basophils # (A) 0.1 k/uL (0-0.2); Basophils % (A) 1 %; Eosinophils # (A) 0.4 k/uL (0-0.7); Eosinophils % (A) 3 %; HGB 13.9 gm/dL (11.4-16.0); Lymphocytes # (A) 1.3 k/uL (1.0-4.8); Lymphocytes % (A) 9 %; MCH 30.6 pg (25.0-35.0); MCHC 33.1 g/dL (31.0-37.0); MCV 92.5 fL (80.0-100.0); Mean Platelet Volume 7.6; Monocytes # (A) 0.7 k/uL (0-1.0); Monocytes % (A) 5 %; Neutrophils # (A) 12.5 k/uL (1.3-7.7); Neutrophils % (A) 83 %; Platelet Count 271 k/uL (150-450); RBC 4.55 m/uL (3.80-5.40); RDW 15.3 % (11.5-15.5); WBC 15.1 k/uL (3.8-10.6)
[2018-01-28 05:53] LABS: Calcium 9.1 mg/dL (8.4-10.2); Potassium 3.7 mmol/L (3.5-5.1)
[2018-01-28] MEDS: ASPIRIN 325 MG TAB PO SCH (08:19)
[2018-01-28] MEDS: METOPROLOL TARTRATE 12.5 MG TAB PO SCH ×2 (08:19→20:18)
[2018-01-28] MEDS: FUROSEMIDE 10 MG/ML 4 ML VIAL IV SCH ×2 (08:20→20:17)
[2018-01-28] MEDS: SPIRONOLACTONE 25 MG TAB PO SCH (08:20)
[2018-01-28] MEDS ORDERED: LISINOPRIL 2.5 MG TAB PO SCH (09:00)
--- NOTE | 2018-01-28 09:35 | XR ---
EXAMINATION TYPE: XR chest 1V DATE OF EXAM: 01/28/2018 COMPARISON: 01/27/2018 HISTORY: Shortness of breath TECHNIQUE: Single frontal view of the chest is obtained. FINDINGS: Diffuse interstitial pattern and cardiomegaly. No pleural effusion or pneumothorax. No con solidation. Arthropathy of the shoulders. IMPRESSION: 1. Diffuse interstitial pattern with cardiomegaly correlate for venous congestion. Otherwise consider interstitial pneumonitis or atypical pneumonia. Findings are stable from prior exam.
--- NOTE | 2018-01-28 10:03 | P.PN ---
Subjective Progress Note Date: 01/28/18 Principal diagnosis: Acute coronary syndrome This is a pleasant 73-year-old female patient with a past medical history significant for hypertension and dyslipidemia with no documented history of coronary artery disease or congestive heart failure presented to the hospital complaining of shortness of breath for the last 3 weeks. The patient stated that the shortness of breath was started about 3 weeks ago. Beside that she describes epigastric discomfort. She stated she developed bilateral lower extremities edema and she was seen by her primary care physician who put her on Lasix with improvement in the edema. The patient did not have any symptoms of chest pain or discomfort, dizziness or lightheadedness , or any syncope. She does have epigastric discomfort mainly. The EKG showed sinus rhythm with nonspecific changes in the inferior leads. There was also some ST and T wave abnormalities seems to be diffuse. Beside that the d-dimer came in to be abnormal and the patient is in process to have a CTA of the chest to rule out any PE. The BNP came in to be also severely abnormal and the patient was given Lasix IV in the emergency room. The first set of troponin also came in to be slightly abnormal. The patient underwent an emergent heart catheterization and that revealed severe triple-vessel coronary artery disease. She was seen and evaluated by cardiothoracic surgeon and the plan is to proceed with CABG this coming Wednesday. Meanwhile I will continue the patient on the current medical treatment which include aspirin, metoprolol, Lasix, as well as Aldactone. Beside that she is on statin and lisinopril. The echocardiogram revealed impaired LV function with an ejection fraction of 25-30%. Objective - Vital Signs Vital signs: Vital Signs Temp 98.2 F 01/28/18 09:00 Pulse 60 01/28/18 09:00 Resp 22 01/28/18 09:00 BP 110/65 01/28/18 09:00 Pulse Ox 95 01/28/18 09:00 Intake & Output 01/27/18 01/28/18 01/28/18 18:59 06:59 18:59 Intake Total 500 790 60 Output Total 1250 2250 Balance -750 -1460 60 Weight 81.647 kg 81 kg Intake: IV 500 790 60 Sodium Chloride 0.9% 1, 300 790 60 000 ml @ 75 mls/hr IV . [id number] [facility] Rx#:[id number] Output: Urine 1250 2250 Other: Voiding Method Bedside Commode # Voids 0 0 # Bowel Movements 0 0 - Constitutional General appearance: Present: no acute distress - Respiratory Respiratory: bilateral: CTA - Cardiovascular Rhythm: regular Heart sounds: normal: S1, S2 - Labs CBC & Chem 7: 01/28/18 04:59 01/28/18 04:59 Labs: Abnormal Lab Results - Last 24 Hours (Table) 01/27/18 01/27/18 01/27/18 Range/Units 10:50 10:50 10:50 WBC 15.9 H (3.8-10.6) k/uL Neutrophils # 14.0 H (1.3-7.7) k/uL Lymphocytes # 0.9 L (1.0-4.8) k/uL INR (<1.2) D-Dimer (<0.60) mg/L FEU BUN 27 H (7-17) mg/dL Glucose 186 H (74-99) mg/dL Total Bilirubin 1.5 H (0.2-1.3) mg/dL AST 63 H (14-36) U/L ALT 101 H (9-52) U/L Troponin I 0.325 H* (0.000-0.034) ng/mL Total Protein 6.1 L (6.3-8.2) g/dL Albumin 3.3 L (3.5-5.0) g/dL Triglycerides (<150) mg/dL LDL Cholesterol, Calc (0-99) mg/dL HDL Cholesterol (40-60) mg/dL Urine Blood (Negative) Urine Bacteria (None) /hpf Urine Mucus (None) /hpf 01/27/18 01/27/18 01/27/18 Range/Units 10:50 10:50 15:36 WBC (3.8-10.6) k/uL Neutrophils # (1.3-7.7) k/uL Lymphocytes # (1.0-4.8) k/uL INR 1.2 H (<1.2) D-Dimer 1.96 H (<0.60) mg/L FEU BUN (7-17) mg/dL Glucose (74-99) mg/dL Total Bilirubin (0.2-1.3) mg/dL AST (14-36) U/L ALT (9-52) U/L Troponin I (0.000-0.034) ng/mL Total Protein (6.3-8.2) g/dL Albumin (3.5-5.0) g/dL Triglycerides 172 H (<150) mg/dL LDL Cholesterol, Calc 113 H (0-99) mg/dL HDL Cholesterol 30 L (40-60) mg/dL Urine Blood Small H (Negative) Urine Bacteria Rare H (None) /hpf Urine Mucus Rare H (None) /hpf 01/28/18 01/28/18 01/28/18 Range/Units 04:59 04:59 04:59 WBC 15.1 H (3.8-10.6) k/uL Neutrophils # 12.5 H (1.3-7.7) k/uL Lymphocytes # (1.0-4.8) k/uL INR (<1.2) D-Dimer (<0.60) mg/L FEU BUN 25 H (7-17) mg/dL Glucose (74-99) mg/dL Total Bilirubin (0.2-1.3) mg/dL AST (14-36) U/L ALT (9-52) U/L Troponin I 3.640 H* (0.000-0.034) ng/mL Total Protein (6.3-8.2) g/dL Albumin (3.5-5.0) g/dL Triglycerides (<150) mg/dL LDL Cholesterol, Calc (0-99) mg/dL HDL Cholesterol (40-60) mg/dL Urine Blood (Negative) Urine Bacteria (None) /hpf Urine Mucus (None) /hpf Microbiology - Last 24 Hours (Table) 01/27/18 15:36 Urine Culture - Preliminary Urine,Voided 01/27/18 18:30 Nasal Screen MRSA/MSSA (NAHOMY) - Preliminary Nasal Swab Assessment and Plan Assessment: assessment #1 severe triple-vessel coronary artery disease #2 severe ischemic cardiomyopathy. #3 congestive heart failure exacerbation secondary to systolic dysfunction #4 hypertension #5 dyslipidemia Plan #1 continue the current medical treatment as described above #2 the plan is to proceed with open heart and stomach Wednesday. #3 continue monitor the kidney function and electrolytes #4 follow-up with the patient Thank you for allowing us participate in her care and we'll continue following up with the patient
[2018-01-28] MEDS: MUPIROCIN 2% OINT 22 GM TUBE TOPICAL SCH ×2 (10:16→20:18)
[2018-01-28] MEDS: HEPARIN SOD,PORK IN 0.45% NACL 25,000 UNIT in 0.45% NACL 1 500ML.BAG IV SCH (10:16)
[2018-01-28] MEDS ORDERED: MD COMMUNICATION TO PHARMACY 1 EACH MISC PO ONE ×4 (10:36)
--- NOTE | 2018-01-28 10:47 | ECHOF ---
Referral Reason:sob MEASUREMENTS -------- HEIGHT: 157.5 cm WEIGHT: 81.7 kg BP: RVIDd: 3.4 cm (< 3.3) IVSd: 0.8 cm (0.6 - 1.1) LVIDd: 5.3 cm (3.9 - 5.3) LVPWd: 1.4 cm (0.6 - 1.1) IVSs: 1.0 cm LVIDs: 4.9 cm LVPWs: 1.5 cm LAESV Index (A-L): 34.20 ml/m Ao Diam: 2.5 cm (2.0 - 3.7) AV Cusp: 1.1 cm (1.5 - 2.6) LA Diam: 4.4 cm (2.7 - 3.8) MV EXCURSION: 13.546 mm (> 18.000) MV EF SLOPE: 45 mm/s (70 - 150) EPSS: 2.3 cm MV E Jose Juan: 1.03 m/s MV DecT: 121 ms MV A Jose Juan: 0.32 m/s MV E/A Ratio: 3.20 RAP: 5.00 mmHg RVSP: 68.45 mmHg FINDINGS -------- Sinus rhythm. This was a techncally difficult study with suboptimal views, , Lumason utilized for enhancement of im ages. The left ventricular size is normal. Left ventricular wall thickness is normal. There is moderate global hypokinesis of LV . Overall left ventricular systolic function is severely impaired with, a n EF between 25 - 30 %. Anterseptal Hypokinesis Inferior Hypokinesis Septal Hypokinesis Wingina Hypokinesis. The right ventricle is mild to moderately enlarged. LA is moderately dilated 34-39 ml/m2 The right atrial size is normal. 5.0mg OF Lumason UTLIZED: 2 OR MORE WALL SEGMENTS NOT VISUALIZED. The aortic valve is trileaflet, and appears structurally normal. No aortic stenosis or regurgitation. Mild mitral regurgitation is present. Mild tricuspid regurgitation present. There is moderate pulmonary hypertension. The right ventric ular systolic pressure, as measured by Doppler, is 68.45mmHg. There is no pulmonic regurgitation present. The aortic root size is normal. There is no pericardial effusion. CONCLUSIONS -------- 1. This was a techncally difficult study with suboptimal views, , Lumason utilized for enhancement of images. 2. The left ventricular size is normal. 3. Left ventricular wall thickness is normal. 4. There is moderate global hypokinesis of LV . 5. Overall left ventricular systolic function is severely impaired with, an EF between 25 - 30 %. 6. Anterseptal Hypokinesis 7. Inferior Hypokinesis 8. Septal Hypokinesis 9. Wingina Hypokinesis. 10. The right ventricle is mild to moderately enlarged. 11. LA is moderately dilated 34-39 ml/m2 12. The right atrial size is normal. 13. 5.0mg OF Lumason UTLIZED: 2 OR MORE WALL SEGMENTS NOT VISUALIZED. 14. The aortic valve is trileaflet, and appears structurally normal. No aortic stenosis or regurgitat ion. 15. Mild mitral regurgitation is present. 16. Mild tricuspid regurgitation present. 17. There is moderate pulmonary hypertension. 18. The right ventricular systolic pressure, as measured by Doppler, is 68.45mmHg. 19. There is no pulmonic regurgitation present. 20. The aortic root size is normal. 21. There is no pericardial effusion. SOCIAL DIRECTOR: Nica Hernandez RDCS
--- NOTE | 2018-01-28 11:45 | P.CNPUL ---
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 Patient used to be a heavy smoker, however she quit over 10 years ago. She was admitted this time with recurrent episodes of shortness of breath, cough, and wheezing. Patient has been on multiple courses of antibiotics, and prednisone by her primary care physician, however over the last 3 weeks, she has not been noticing significant improvement. Finally she came into the emergency room, and this time she was describing shortness of breath, epigastric discomfort, and significant fluid retention and swelling in her lower extremities. Chest x- ray was suggestive of mild interstitial edema. Patient was seen by cardiology on consultation, CT angiogram of the chest showed no evidence of pulmonary embolism. Her BNP level was elevated, patient did receive IV Lasix, and her troponin was also noted to be abnormal. Underwent cardiac catheterization, and she was found to have chronic total occlusion of the RCA with critical disease involving the left main and ostial left circumflex and ostial LAD. Her left ventricular end-diastolic pressure was 45. Patient was seen by cardiothoracic surgery on consultation, and she would likely undergo myocardial revascularization on early Wednesday. Considering her previous pulmonary history, I was asked to see her on consultation. Apparently since admission the patient responded well to diuretics, she is also on DuoNeb updrafts, and seems to be doing much better compared to how she felt upon admission. Hardly any cough, no wheezing, no fever, no chills, no hemoptysis, no chest pain. Patient felt better since admission. Chest x-ray continues to show mild interstitial pattern with minimal venous congestion, felt to be more of interstitial edema, improving with diuretics. Likely, patient sounded fairly clear, no wheezing, no crackles, no rhonchi. Review of Systems 14 point review of systems were obtained, please refer to pertinent positives in HPI otherwise remaining systems are negative. 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 History of Any Multi-Drug Resistant Organisms: None Reported Additional Past Surgical History / Comment(s): "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, D&C-vaginal polyps. Past Anesthesia/Blood Transfusion Reactions: No Reported Reaction Past Psychological History: No Psychological Hx Reported Smoking Status: Former smoker (Quit 30 years ago.) Past Alcohol Use History: None Reported, Rare Past Drug Use History: None Reported - Past Family History Mother Family Medical History: Myocardial Infarction ([place]) ( from myocardial infarction at age 69.) Father Family Medical History: Myocardial Infarction ([place]) ( from a pericardial infarction at age 69) Brother(s) Family Medical History: Neurologic Disorder (Multiple sclerosis) Sister(s) Family Medical History: Cancer (Breast and uterine), Myocardial Infarction ([place]) (At age 68) Medications and Allergies Home Medications Medication Instructions Recorded Confirmed Type Bisoprolol-Hctz 10-6.25 mg [Ziac 1 tab PO PC-SUPPER 01/20/15 01/27/18 History 10-6.25 MG] Albuterol Nebulized [Ventolin 2.5 mg INHALATION RT-TID 01/27/18 01/27/18 History Nebulized] Fluticasone/Vilanterol [Breo 1 inhalation PO RT-DAILY 01/27/18 01/27/18 History Ellipta 100-25 Mcg Inhaler] Allergies Allergy/AdvReac Type Severity Reaction Status Date / Time atorvastatin calcium Allergy Swelling Verified 01/27/18 10:34 [From Lipitor] benazepril Allergy irregular Verified 01/27/18 10:34 heart rate amlodipine AdvReac muscle Verified 01/27/18 10:34 cramps Physical Exam Vitals: Vital Signs Temp Pulse Resp BP Pulse Ox 01/28/18 11:00 59 L 22 117/69 93 L 01/28/18 10:00 61 18 115/60 95 01/28/18 09:00 98.2 F 60 22 110/65 95 01/28/18 08:00 60 22 119/64 94 L 01/28/18 07:00 56 L 25 H 116/58 95 01/28/18 06:00 60 19 108/57 95 01/28/18 05:00 56 L 31 H 110/66 93 L 01/28/18 04:00 57 L 19 109/59 96 01/28/18 03:00 97.7 F 56 L 24 104/54 94 L 01/28/18 02:00 54 L 20 103/56 90 L 01/28/18 01:00 55 L 21 101/56 95 01/28/18 00:00 60 27 H 115/64 91 L 01/27/18 23:23 59 L 20 120/74 92 L 01/27/18 23:00 57 L 24 112/62 91 L 01/27/18 22:00 65 20 126/73 94 L 01/27/18 21:00 64 26 H 118/63 93 L 01/27/18 20:00 97.5 F L 64 28 H 118/70 93 L 01/27/18 19:00 64 22 119/71 94 L 01/27/18 18:00 62 18 118/68 95 01/27/18 17:00 98.4 F 60 25 H 116/62 95 01/27/18 16:00 71 29 H 119/75 95 01/27/18 15:00 72 22 98 01/27/18 14:56 97.9 F 78 20 120/79 98 01/27/18 13:00 22 01/27/18 11:41 84 Intake and Output 01/27/18 01/28/18 01/28/18 22:59 06:59 14:59 Intake Total 600 490 539.143 Output Total 2150 1350 1100 Balance -1550 -860 -560.857 Intake: IV 600 490 100 Sodium Chloride 0.9% 1, 600 490 100 000 ml @ 75 mls/hr IV . [id number] ERIN Rx#:[id number] Intake, IV Titration 439.143 Amount Heparin Sod,Pork in 0.45% 439.143 NaCl 25,000 unit In 0.45 % NaCl 1 500ml.bag @ 12 UNITS/KG/HR 19.59 mls/hr IV .Q24H ERIN Rx#: [id number] Output: Urine 2150 1350 1100 Other: Voiding Method Bedside Commode # Voids 0 0 0 # Bowel Movements 0 0 Weight 81 kg Physical Exam: Revealed a 72-year-old female, pleasant, resting in bed, in no form of respiratory distress. Head: Atraumatic, normocephalic. Eyes: PERRLA, EOMI, no icterus HEENT:[ Moist mucous membranes, Neck is supple.] [No neck masses.] [No thyromegaly.] [No JVD.] Chest: [Clear throughout, no crackles, no rhonchi, no wheezes.] Cardiac Exam: [Normal S1 and S2, no S3 gallop, no murmur.] Abdomen: [Soft, nontender, no megaly, no rebound, no guarding, normal bowel sounds.] Extremities: [No clubbing, trace of bipedal edema, no cyanosis.] Good pulses noted bilaterally Neurological Exam: [No focal neurologic deficit. Psychiatric: Normal mood and affect, normal mental status examination. Lymphatics: No lymphadenopathy. Musculoskeletal normal range of motion, no deformities. No weakness was noted.] Results - Laboratory Findings CBC and BMP: 01/28/18 04:59 01/28/18 04:59 PT/INR, D-dimer PT 11.2 sec (9.0-12.0) 01/27/18 10:50 INR 1.2 (<1.2) H 01/27/18 10:50 D-Dimer 1.96 mg/L FEU (<0.60) H 01/27/18 10:50 Abnormal lab findings: Abnormal Labs 01/27/18 01/27/18 01/27/18 10:50 10:50 10:50 WBC 15.9 H Neutrophils # 14.0 H Lymphocytes # 0.9 L INR D-Dimer BUN 27 H Glucose 186 H Total Bilirubin 1.5 H AST 63 H ALT 101 H Troponin I 0.325 H* Total Protein 6.1 L Albumin 3.3 L Triglycerides LDL Cholesterol, Calc HDL Cholesterol Urine Blood Urine Bacteria Urine Mucus 01/27/18 01/27/18 01/27/18 10:50 10:50 15:36 WBC Neutrophils # Lymphocytes # INR 1.2 H D-Dimer 1.96 H BUN Glucose Total Bilirubin AST ALT Troponin I Total Protein Albumin Triglycerides 172 H LDL Cholesterol, Calc 113 H HDL Cholesterol 30 L Urine Blood Small H Urine Bacteria Rare H Urine Mucus Rare H 01/28/18 01/28/18 01/28/18 04:59 04:59 04:59 WBC 15.1 H Neutrophils # 12.5 H Lymphocytes # INR D-Dimer BUN 25 H Glucose Total Bilirubin AST ALT Troponin I 3.640 H* Total Protein Albumin Triglycerides LDL Cholesterol, Calc HDL Cholesterol Urine Blood Urine Bacteria Urine Mucus - Diagnostic Findings Chest x-ray: image reviewed (As noted in HPI.) Assessment and Plan Assessment: Impression: 1 acute non-ST elevation myocardial infarction 2 severe triple-vessel coronary artery disease 3 severe ischemic cardiomyopathy 4 acute systolic congestive heart failure, 4 history of multiple comorbidities including hypertension, dyslipidemia, extrinsic ALLERGIC alveolitis, possible mild component of COPD related to her previous remote smoking history. Recommendation: Patient seems to be doing well presently, she is much improved compared to how she felt on admission. Chest x-ray labs were all reviewed, bedside PFT will be requested, this will be done over the weekend. Continue diuretics, bronchodilators, no need for IV steroids at this point. We will continue to follow. Patient is considered low operative risk at this point. Time with Patient: Greater than 30
--- NOTE | 2018-01-28 12:20 | P.PN ---
Subjective Progress Note Date: 01/28/18 Principal diagnosis: Symptomatic multivessel coronary artery disease, with left main disease, non-ST elevated myocardial infarction this admission, congestive heart failure exacerbation secondary to systolic dysfunction, severe ischemic cardiomyopathy, hypertension, dyslipidemia. The patient is sitting up to the bedside chair. She is in no acute distress. She reports that she feels much improved today, she denies any complaints of pain or shortness of breath at this time. Her oxygen saturations are 95% on 2 L nasal cannula, she is achieving 1000 mL on her incentive spirometry. A bedside FEV1 was completed yesterday which was 65% of her predicted value. She is complaining of blurred vision which she states she has had for several months. Objective - Vital Signs Vital signs: Vital Signs Temp 98.2 F 01/28/18 09:00 Pulse 59 L 01/28/18 11:00 Resp 22 01/28/18 11:00 BP 117/69 01/28/18 11:00 Pulse Ox 93 L 01/28/18 11:00 Intake & Output 01/27/18 01/28/18 01/28/18 18:59 06:59 18:59 Intake Total 500 790 539.143 Output Total 1250 2250 1100 Balance -750 -1460 -560.857 Weight 81.647 kg 81 kg Intake: IV 500 790 100 Sodium Chloride 0.9% 1, 300 790 100 000 ml @ 75 mls/hr IV . [id number] ERIN Rx#:[id number] Intake, IV Titration 439.143 Amount Heparin Sod,Pork in 0.45% 439.143 NaCl 25,000 unit In 0.45 % NaCl 1 500ml.bag @ 12 UNITS/KG/HR 19.59 mls/hr IV .Q24H ERIN Rx#: [id number] Output: Urine 1250 2250 1100 Other: Voiding Method Bedside Commode # Voids 0 0 # Bowel Movements 0 0 - Constitutional General appearance: Present: cooperative, no acute distress, obese - EENT ENT: Present: hearing grossly normal - Neck Details: Neck is supple, no JVD, no lymphadenopathy. - Respiratory Details: Lung sounds with few scattered crackles to her bilateral bases. Respirations are symmetrical and nonlabored. Oxygen saturation are 95% on 2 L nasal cannula. She is achieving 1000 L on her incentive spirometry. Bedside FEV1 completed which was 65% of her predicted value. - Cardiovascular Details: Regular rhythm and rate. S1 and S2 present, systolic murmur 2/6 present. No edema present. Knee-high SCDs in place to her bilateral lower extremities. Bedside telemetry showing normal sinus rhythm heart rate 65. - Gastrointestinal Gastrointestinal Comment(s): Abdomen is soft, nontender and nondistended. No guarding or rigidity. Active bowel sounds all 4 abdominal quadrants. Tolerating oral intake. - Genitourinary Genitourinary Comment(s): Adequate urine output. Voiding clear yellow urine. 1450 ml output the last 8 hours. - Integumentary Integumentary Comment(s): Skin is warm and dry. No clubbing or cyanosis present. - Neurologic Neurologic: Present: CNII-XII intact - Musculoskeletal Musculoskeletal: Present: gait normal, strength equal bilaterally - Psychiatric Psychiatric: Present: A&O x's 3, appropriate affect, intact judgment & insight - Allied health notes Allied health notes reviewed: nursing - Labs CBC & Chem 7: 01/28/18 04:59 01/28/18 04:59 Labs: Abnormal Lab Results - Last 24 Hours (Table) 01/27/18 01/27/18 01/28/18 Range/Units 10:50 15:36 04:59 WBC 15.1 H (3.8-10.6) k/uL Neutrophils # 12.5 H (1.3-7.7) k/uL BUN (7-17) mg/dL Troponin I (0.000-0.034) ng/mL Triglycerides 172 H (<150) mg/dL LDL Cholesterol, Calc 113 H (0-99) mg/dL HDL Cholesterol 30 L (40-60) mg/dL Urine Blood Small H (Negative) Urine Bacteria Rare H (None) /hpf Urine Mucus Rare H (None) /hpf 01/28/18 01/28/18 Range/Units 04:59 04:59 WBC (3.8-10.6) k/uL Neutrophils # (1.3-7.7) k/uL BUN 25 H (7-17) mg/dL Troponin I 3.640 H* (0.000-0.034) ng/mL Triglycerides (<150) mg/dL LDL Cholesterol, Calc (0-99) mg/dL HDL Cholesterol (40-60) mg/dL Urine Blood (Negative) Urine Bacteria (None) /hpf Urine Mucus (None) /hpf Microbiology - Last 24 Hours (Table) 01/27/18 15:36 Urine Culture - Preliminary Urine,Voided 01/27/18 18:30 Nasal Screen MRSA/MSSA (NAHOMY) - Preliminary Nasal Swab - Imaging and Cardiology Vein mapping results reviewed. Dr. Mendez reviewed the 2-D echocardiogram films and cardiac catheterization films. Assessment and Plan (1) Coronary artery disease Current Visit: Yes Status: Acute Code(s): I25.10 - ATHSCL HEART DISEASE OF [place] CORONARY ARTERY W/O ANG PCTRS SNOMED Code(s): 88737086 (2) Hypertension Current Visit: Yes Status: Acute Code(s): I10 - ESSENTIAL (PRIMARY) HYPERTENSION SNOMED Code(s): 06246380 (3) Hyperlipidemia Current Visit: Yes Status: Acute Code(s): E78.5 - HYPERLIPIDEMIA, UNSPECIFIED SNOMED Code(s): 13490435 (4) Acute exacerbation of congestive heart failure Current Visit: Yes Status: Acute Code(s): I50.9 - HEART FAILURE, UNSPECIFIED SNOMED Code(s): 67679054 (5) Ischemic cardiomyopathy Current Visit: Yes Status: Acute Code(s): I25.5 - ISCHEMIC CARDIOMYOPATHY SNOMED Code(s): 665042985 (6) Elevated d-dimer Current Visit: Yes Status: Acute Code(s): R79.89 - OTHER SPECIFIED ABNORMAL FINDINGS OF BLOOD CHEMISTRY SNOMED Code(s): 081589961 (7) NSTEMI (non-ST elevated myocardial infarction) Current Visit: Yes Status: Acute Code(s): I21.4 - NON-ST ELEVATION (NSTEMI) MYOCARDIAL INFARCTION SNOMED Code(s): 227068310 Plan: 1. Continue to optimize her medically, continue her aspirin, statin, beta saw, diuretics and SCAR inhibitor. 2. Continue to encourage use of her incentive spirometry every hour while awake. 3. Continue to review preoperative teaching with the patient and her family. 4. DVT and GI prophylaxis. 5. She will be scheduled for myocardial revascularization surgery to be performed by Dr. Amanda Mendez on 01/31/2018. 6. Send a stat troponin level. 7. Consult Dr. Gallardo for pulmonary management. 8. Further recommendations to follow as patient progresses in her care. Time with Patient: Greater than 30
[2018-01-28 12:41] LABS: Hepatitis A Antibody IgM Non-Reactive (Non-Reactive); Hepatitis B Core IgM Non-Reactive (Non-Reactive)
--- NOTE | 2018-01-28 17:34 | P.PN ---
Subjective Progress Note Date: 01/28/18 Principal diagnosis: Acute non-ST elevation MA Status post cardiac catheterization; triple-vessel disease This is a pleasant 73-year-old female patient with a past medical history significant for hypertension and dyslipidemia with no documented history of coronary artery disease or congestive heart failure presented to the hospital complaining of shortness of breath for the last 3 weeks. The patient stated that the shortness of breath was started about 3 weeks ago. Beside that she describes epigastric discomfort. She stated she developed bilateral lower extremities edema and she was seen by her primary care physician who put her on Lasix with improvement in the edema. The patient did not have any symptoms of chest pain or discomfort, dizziness or lightheadedness , or any syncope. She does have epigastric discomfort mainly. The EKG showed sinus rhythm with nonspecific changes in the inferior leads. There was also some ST and T wave abnormalities seems to be diffuse. Beside that the d-dimer came in to be abnormal and the patient is in process to have a CTA of the chest to rule out any PE. The BNP came in to be also severely abnormal and the patient was given Lasix IV in the emergency room. The first set of troponin also came in to be slightly abnormal. The patient underwent an emergent heart catheterization and that revealed severe triple-vessel coronary artery disease. She was seen and evaluated by cardiothoracic surgeon and the plan is to proceed with CABG this coming Wednesday. 01/28/2018 Patient seen and examined at bedside in ICU; family members at bedside; she denies any chest pain or shortness of breath; patient is continued on aspirin, metoprolol, Lasix and Aldactone; statins and lisinopril has been continued; echocardiogram showed impaired left ventricular function with ejection fraction of 25-30% Objective - Vital Signs Vital signs: Vital Signs Temp 98.5 F 01/28/18 15:00 Pulse 74 01/28/18 17:00 Resp 22 01/28/18 17:00 BP 115/62 01/28/18 17:00 Pulse Ox 91 L 01/28/18 17:00 Intake & Output 01/27/18 01/28/18 01/28/18 18:59 06:59 18:59 Intake Total 500 790 762.970 Output Total 1250 2250 2100 Balance -750 -1460 -1337.030 Weight 81.647 kg 81 kg Intake: IV 500 790 220 Sodium Chloride 0.9% 1, 300 790 220 000 ml @ 75 mls/hr IV . [id number] ERIN Rx#:[id number] Intake, IV Titration 542.970 Amount Heparin Sod,Pork in 0.45% 542.970 NaCl 25,000 unit In 0.45 % NaCl 1 500ml.bag @ 12 UNITS/KG/HR 19.59 mls/hr IV .Q24H ERIN Rx#: [id number] Output: Urine 1250 2250 2100 Other: Voiding Method Bedside Commode Bedside Commode # Voids 0 0 # Bowel Movements 0 0 - Exam On exam, alert and oriented x3. HEENT: Conjunctivae normal. eyes normal. NECK: No JVD. No thyroid enlargement. No LNs CARDIOVASCULAR: S1, S2 muffled. No murmur RESPIRATION: Breath sounds diminished in the bases. No rhonchi or crackles. No bronchial breathing. ABDOMEN: Soft, nontender . No guarding. no masses palpable. No ascites, No hepatosplenomegaly.Bowel sounds heard. LEGS: No edema. no swelling NERVOUS SYSTEM: Cranial N 2-12 grossly normal. Moves all 4 limbs. No focal deficits. No sensory deficit. No signs of cerebellar dysfucntion. Skin: no ulcer no rash Joints: No active swelling. No inflammation. Lymphatic system. No LN neck axilla or groin. - Labs CBC & Chem 7: 01/28/18 04:59 01/28/18 04:59 Labs: Abnormal Lab Results - Last 24 Hours (Table) 01/28/18 01/28/18 01/28/18 Range/Units 04:59 04:59 04:59 WBC 15.1 H (3.8-10.6) k/uL Neutrophils # 12.5 H (1.3-7.7) k/uL APTT (22.0-30.0) sec BUN 25 H (7-17) mg/dL Troponin I 3.640 H* (0.000-0.034) ng/mL 18 01/28/18 Range/Units 11:21 15:12 WBC (3.8-10.6) k/uL Neutrophils # (1.3-7.7) k/uL APTT 31.7 H (22.0-30.0) sec BUN (7-17) mg/dL Troponin I 2.730 H* (0.000-0.034) ng/mL Microbiology - Last 24 Hours (Table) 01/27/18 10:50 Blood Culture - Preliminary Blood No Growth after 24 hours 01/27/18 15:36 Urine Culture - Preliminary Urine,Voided 01/27/18 18:30 Nasal Screen MRSA/MSSA (NAHOMY) - Preliminary Nasal Swab Assessment and Plan Assessment: 1. Severe triple-vessel coronary artery disease; stool study catheterization 2. Non-ST elevation MA 3. Severe ischemic cardiomyopathy 4. Acute exacerbation systolic CHF 5. Hypertension 6. Hyperlipidemia Plan; Patient remains in ICU and plan is to continue current medical management; patient is planned for open heart surgery coming Wednesday; patient and family out of the unit of the plan and are agreeable; we will continue to monitor patient in ICU and monitor electrolytes and renal function monitor CBC; further recommendations pending clinical course of patient Time with Patient: Greater than 30
[2018-01-28] MEDS: CRESTOR 20 MG PO SCH (20:17)
[2018-01-29 04:25] LABS: Basophils # (A) 0.1 k/uL (0-0.2); Basophils % (A) 1 %; Eosinophils # (A) 0.5 k/uL (0-0.7); Eosinophils % (A) 3 %; HCT 40.4 % (34.0-46.0); HGB 13.4 gm/dL (11.4-16.0); Lymphocytes # (A) 1.3 k/uL (1.0-4.8); Lymphocytes % (A) 10 %; MCH 30.9 pg (25.0-35.0); MCHC 33.2 g/dL (31.0-37.0); MCV 92.9 fL (80.0-100.0); Mean Platelet Volume 6.9; Monocytes # (A) 0.6 k/uL (0-1.0); Monocytes % (A) 5 %; Neutrophils # (A) 10.8 k/uL (1.3-7.7); Neutrophils % (A) 81 %; Platelet Count 237 k/uL (150-450); RBC 4.35 m/uL (3.80-5.40); RDW 15.2 % (11.5-15.5); WBC 13.4 k/uL (3.8-10.6)
[2018-01-29 04:53] LABS: Calcium 9.1 mg/dL (8.4-10.2); Magnesium 2.1 mg/dL (1.6-2.3); Phosphorus 4.4 mg/dL (2.5-4.5); Potassium 3.9 mmol/L (3.5-5.1)
--- NOTE | 2018-01-29 06:34 | XR ---
EXAMINATION TYPE: XR chest 1V DATE OF EXAM: 01/29/2018 HISTORY: congestive heart failure. REFERENCE: Previous study dated 01/28/2018. FINDINGS: The lungs are overinflated. The heart is enlarged. There is vascular congestion and mild in terstitial change. IMPRESSION: 1. COPD. 2. CARDIOMEGALY. 3. SUBTLE CHANGES OF CONGESTIVE HEART FAILURE.
[2018-01-29] MEDS ORDERED: Potassium Replacement Protocol 1 EACH MISC MISCELLANE PRN (06:51)
[2018-01-29] MEDS ORDERED: POTASSIUM CHLORIDE ER 20 MEQ TAB.ER PO SCH (07:00)
[2018-01-29] MEDS: HEPARIN SOD,PORK IN 0.45% NACL 25,000 UNIT in 0.45% NACL 1 500ML.BAG IV SCH (08:26)
[2018-01-29] MEDS: FUROSEMIDE 10 MG/ML 4 ML VIAL IV SCH (08:27)
[2018-01-29] MEDS: PANTOPRAZOLE 40 MG TABLET PO SCH (08:27)
[2018-01-29] MEDS: ASPIRIN 325 MG TAB PO SCH (08:27)
[2018-01-29] MEDS: SPIRONOLACTONE 25 MG TAB PO SCH (08:28)
[2018-01-29] MEDS: METOPROLOL TARTRATE 12.5 MG TAB PO SCH ×2 (08:28→21:14)
[2018-01-29] MEDS: MUPIROCIN 2% OINT 22 GM TUBE TOPICAL SCH ×2 (08:28→21:14)
--- NOTE | 2018-01-29 10:51 | P.PN ---
Subjective Progress Note Date: 01/29/18 Principal diagnosis: Acute non-ST elevation myocardial infarction and severe triple-vessel coronary artery disease. 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 Patient used to be a heavy smoker, however she quit over 10 years ago. She was admitted this time with recurrent episodes of shortness of breath, cough, and wheezing. Patient has been on multiple courses of antibiotics, and prednisone by her primary care physician, however over the last 3 weeks, she has not been noticing significant improvement. Finally she came into the emergency room, and this time she was describing shortness of breath, epigastric discomfort, and significant fluid retention and swelling in her lower extremities. Chest x- ray was suggestive of mild interstitial edema. Patient was seen by cardiology on consultation, CT angiogram of the chest showed no evidence of pulmonary embolism. Her BNP level was elevated, patient did receive IV Lasix, and her troponin was also noted to be abnormal. Underwent cardiac catheterization, and she was found to have chronic total occlusion of the RCA with critical disease involving the left main and ostial left circumflex and ostial LAD. Her left ventricular end-diastolic pressure was 45. Patient was seen by cardiothoracic surgery on consultation, and she would likely undergo myocardial revascularization on early Wednesday. Considering her previous pulmonary history, I was asked to see her on consultation. Apparently since admission the patient responded well to diuretics, she is also on DuoNeb updrafts, and seems to be doing much better compared to how she felt upon admission. Hardly any cough, no wheezing, no fever, no chills, no hemoptysis, no chest pain. Patient felt better since admission. Chest x-ray continues to show mild interstitial pattern with minimal venous congestion, felt to be more of interstitial edema, improving with diuretics. Likely, patient sounded fairly clear, no wheezing, no crackles, no rhonchi. Patient was reevaluated today on 01/29/2018, doing quite well, asymptomatic, no cough no wheezing no shortness of breath, no chest pain. She is doing well with incentive spirometry, and she is likely to undergo myocardial revascularization early next week/Wednesday. CBC is relatively normal basic metabolic profile is normal. Chest x-ray showed mild vascular venous congestion. And mild interstitial changes not quite appreciated on physical examination. Objective - Vital Signs Vital signs: Vital Signs Temp 98.2 F 01/29/18 08:00 Pulse 63 01/29/18 10:00 Resp 18 01/29/18 10:00 BP 108/67 01/29/18 10:00 Pulse Ox 95 01/29/18 10:00 Intake & Output 01/28/18 01/29/18 01/29/18 18:59 06:59 18:59 Intake Total 762.970 240 456.173 Output Total 2100 800 75 Balance -1337.030 -560 381.173 Weight 76.7 kg Intake: IV 220 240 60 0.9% 1000ml@20mls/hr KVO 220 60 Sodium Chloride 0.9% 1, 220 20 000 ml @ 75 mls/hr IV . [id number] ERIN Rx#:[id number] Intake, IV Titration 542.970 396.173 Amount Heparin Sod,Pork in 0.45% 542.970 396.173 NaCl 25,000 unit In 0.45 % NaCl 1 500ml.bag @ 12 UNITS/KG/HR 19.59 mls/hr IV .Q24H ERIN Rx#: [id number] Output: Urine 2100 800 75 Other: Voiding Method Bedside Commode Bedside Commode Bedside Commode # Voids 0 1 # Bowel Movements 1 - Exam Physical Exam: Revealed a 72-year-old female, pleasant, resting in bed, in no form of respiratory distress. Head: Atraumatic, normocephalic. Eyes: PERRLA, EOMI, no icterus HEENT:[ Moist mucous membranes, Neck is supple.] [No neck masses.] [No thyromegaly.] [No JVD.] Chest: [Clear throughout, no crackles, no rhonchi, no wheezes.] Cardiac Exam: [Normal S1 and S2, no S3 gallop, no murmur.] Abdomen: [Soft, nontender, no megaly, no rebound, no guarding, normal bowel sounds.] Extremities: [No clubbing, trace of bipedal edema, no cyanosis.] Good pulses noted bilaterally Neurological Exam: [No focal neurologic deficit. Psychiatric: Normal mood and affect, normal mental status examination. Lymphatics: No lymphadenopathy. Musculoskeletal normal range of motion, no deformities. No weakness was noted.] - Labs CBC & Chem 7: 01/29/18 04:13 01/29/18 04:13 Labs: Abnormal Lab Results - Last 24 Hours (Table) 01/28/18 01/28/18 01/28/18 Range/Units 11:21 15:12 21:40 WBC (3.8-10.6) k/uL Neutrophils # (1.3-7.7) k/uL APTT 31.7 H 65.0 H (22.0-30.0) sec BUN (7-17) mg/dL Troponin I 2.730 H* (0.000-0.034) ng/mL 01/29/18 01/29/18 01/29/18 Range/Units 04:13 04:13 04:13 WBC 13.4 H (3.8-10.6) k/uL Neutrophils # 10.8 H (1.3-7.7) k/uL APTT 54.0 H (22.0-30.0) sec BUN 28 H (7-17) mg/dL Troponin I (0.000-0.034) ng/mL Microbiology - Last 24 Hours (Table) 01/27/18 15:36 Urine Culture - Final Urine,Voided 01/27/18 18:30 Nasal Screen MRSA/MSSA ([facility]) - Final Nasal Swab 01/27/18 10:50 Blood Culture - Preliminary Blood No Growth after 24 hours Assessment and Plan Assessment: Impression: 1 acute non-ST elevation myocardial infarction 2 severe triple-vessel coronary artery disease 3 severe ischemic cardiomyopathy 4 acute systolic congestive heart failure, 4 history of multiple comorbidities including hypertension, dyslipidemia, extrinsic ALLERGIC alveolitis, possible mild component of COPD related to her previous remote smoking history. Recommendation: Patient continues to do well, cleared for myocardial revascularization next Wednesday. Continue present treatment plan and supportive care measures for the time being. Time with Patient: Less than 30
--- NOTE | 2018-01-29 11:35 | P.PN ---
Subjective Progress Note Date: 01/29/18 Principal diagnosis: Symptomatic multivessel coronary artery disease, with left main disease, non-ST elevated myocardial infarction this admission, congestive heart failure exacerbation secondary to systolic dysfunction, severe ischemic cardiomyopathy, remote history of nicotine dependence quit 30 years ago, hypertension, and dyslipidemia. The patient is sitting up to the bedside chair. She is in no acute distress. She reports that she feels much better each day. She denies any complaints of pain or shortness of breath at this time. Her oxygen saturations are 93% on 3 L nasal cannula, she is achieving 1250 mL on her incentive spirometry. A bedside FEV1 was completed on 01/27/2018 which showed a 65% of her predicted value. She is continues complaining of blurred vision. Her 2-D echocardiogram results demonstrated an overall left ventricular systolic function to be severely impaired with an ejection fraction between 25 and 30%, mild mitral valve regurgitation, and mild tricuspid valve regurgitation. Preoperative teaching was reviewed with the patient and her daughter. Questions answered to the best my ability. Objective - Vital Signs Vital signs: Vital Signs Temp 98.2 F 01/29/18 08:00 Pulse 63 01/29/18 10:00 Resp 18 01/29/18 10:00 BP 108/67 01/29/18 10:00 Pulse Ox 95 01/29/18 10:00 Intake & Output 01/28/18 01/29/18 01/29/18 18:59 06:59 18:59 Intake Total 762.970 240 456.173 Output Total 2100 800 75 Balance -1337.030 -560 381.173 Weight 76.7 kg Intake: IV 220 240 60 0.9% 1000ml@20mls/hr KVO 220 60 Sodium Chloride 0.9% 1, 220 20 000 ml @ 75 mls/hr IV . [id number] ERIN Rx#:[id number] Intake, IV Titration 542.970 396.173 Amount Heparin Sod,Pork in 0.45% 542.970 396.173 NaCl 25,000 unit In 0.45 % NaCl 1 500ml.bag @ 12 UNITS/KG/HR 19.59 mls/hr IV .Q24H ERIN Rx#: [id number] Output: Urine 2100 800 75 Other: Voiding Method Bedside Commode Bedside Commode Bedside Commode # Voids 0 1 # Bowel Movements 1 - Constitutional General appearance: Present: cooperative, no acute distress, obese - EENT ENT: Present: hearing grossly normal - Neck Details: Neck is supple, no JVD present, no lymphadenopathy present. - Respiratory Details: Lung sounds essentially clear to her upper lobes, few scattered crackles to bilateral bases. Respirations are symmetrical and nonlabored. Oxygen saturation are 93% on 3 L nasal cannula. She is achieving 1250 mL on her incentive spirometry. - Cardiovascular Details: Regualr in rate. S1-S2 present, negative for S3, gallop or murmur. Bedside telemetry showing normal sinus rhythm heart rate 65. No edema present. Sequential compression devices in place to her bilateral lower extremities. - Gastrointestinal Gastrointestinal Comment(s): Abdomen is soft, nontender and nondistended. Active bowel sounds all 4 abdominal quadrants. Tolerating oral intake. Passing flatus. - Genitourinary Genitourinary Comment(s): Urine output adequate. Voiding clear yellow urine. 600 mL output in the last 8 hours. - Integumentary Integumentary Comment(s): Skin is warm and dry. No clubbing or cyanosis present. - Neurologic Neurologic: Present: CNII-XII intact - Musculoskeletal Musculoskeletal: Present: gait normal, strength equal bilaterally - Psychiatric Psychiatric: Present: A&O x's 3, appropriate affect, intact judgment & insight - Allied health notes Allied health notes reviewed: nursing - Labs CBC & Chem 7: 01/29/18 04:13 01/29/18 04:13 Labs: Abnormal Lab Results - Last 24 Hours (Table) 01/28/18 01/28/18 01/28/18 Range/Units 11:21 15:12 21:40 WBC (3.8-10.6) k/uL Neutrophils # (1.3-7.7) k/uL APTT 31.7 H 65.0 H (22.0-30.0) sec BUN (7-17) mg/dL Troponin I 2.730 H* (0.000-0.034) ng/mL 01/29/18 01/29/18 01/29/18 Range/Units 04:13 04:13 04:13 WBC 13.4 H (3.8-10.6) k/uL Neutrophils # 10.8 H (1.3-7.7) k/uL APTT 54.0 H (22.0-30.0) sec BUN 28 H (7-17) mg/dL Troponin I (0.000-0.034) ng/mL Microbiology - Last 24 Hours (Table) 01/27/18 15:36 Urine Culture - Final Urine,Voided 01/27/18 18:30 Nasal Screen MRSA/MSSA (NAHOM[facility]) - Final Nasal Swab 01/27/18 10:50 Blood Culture - Preliminary Blood No Growth after 24 hours - Imaging and Cardiology Chest x-ray: report reviewed, image reviewed Assessment and Plan (1) Coronary artery disease Current Visit: Yes Status: Acute Code(s): I25.10 - ATHSCL HEART DISEASE OF [place] CORONARY ARTERY W/O ANG PCTRS SNOMED Code(s): 33776863 (2) Hypertension Current Visit: Yes Status: Acute Code(s): I10 - ESSENTIAL (PRIMARY) HYPERTENSION SNOMED Code(s): 57748897 (3) Hyperlipidemia Current Visit: Yes Status: Acute Code(s): E78.5 - HYPERLIPIDEMIA, UNSPECIFIED SNOMED Code(s): 32978154 (4) Acute exacerbation of congestive heart failure Current Visit: Yes Status: Acute Code(s): I50.9 - HEART FAILURE, UNSPECIFIED SNOMED Code(s): 82150989 (5) Ischemic cardiomyopathy Current Visit: Yes Status: Acute Code(s): I25.5 - ISCHEMIC CARDIOMYOPATHY SNOMED Code(s): 115637136 (6) Elevated d-dimer Current Visit: Yes Status: Acute Code(s): R79.89 - OTHER SPECIFIED ABNORMAL FINDINGS OF BLOOD CHEMISTRY SNOMED Code(s): 731687668 (7) NSTEMI (non-ST elevated myocardial infarction) Current Visit: Yes Status: Acute Code(s): I21.4 - NON-ST ELEVATION (NSTEMI) MYOCARDIAL INFARCTION SNOMED Code(s): 281641213 Plan: 1. Continue to optimize her medically, continue her aspirin, statin, beta saw, and diuretics. 2. Continue to encourage use of her incentive spirometry every hour while awake. 3. Continue to review preoperative teaching with the patient and her family. 4. DVT and GI prophylaxis. 5. She is scheduled for myocardial revascularization surgery to be performed by Dr. Amanda Mendez on 01/31/2018. 6. Pulmonary recommendations per Dr. Gallardo. 7. Further recommendations to follow as patient progresses in her care. Time with Patient: Greater than 30
--- NOTE | 2018-01-29 12:38 | P.PN ---
Subjective Progress Note Date: 01/29/18 Principal diagnosis: Acute coronary syndrome This is a pleasant 73-year-old female patient with a past medical history significant for hypertension and dyslipidemia with no documented history of coronary artery disease or congestive heart failure presented to the hospital complaining of shortness of breath for the last 3 weeks. The patient stated that the shortness of breath was started about 3 weeks ago. Beside that she describes epigastric discomfort. She stated she developed bilateral lower extremities edema and she was seen by her primary care physician who put her on Lasix with improvement in the edema. The patient did not have any symptoms of chest pain or discomfort, dizziness or lightheadedness , or any syncope. She does have epigastric discomfort mainly. The EKG showed sinus rhythm with nonspecific changes in the inferior leads. There was also some ST and T wave abnormalities seems to be diffuse. Beside that the d-dimer came in to be abnormal and the patient is in process to have a CTA of the chest to rule out any PE. The BNP came in to be also severely abnormal and the patient was given Lasix IV in the emergency room. The first set of troponin also came in to be slightly abnormal. The patient underwent an emergent heart catheterization and that revealed severe triple-vessel coronary artery disease. She was seen and evaluated by cardiothoracic surgeon and the plan is to proceed with CABG this coming Wednesday. On follow-up with the patient today on January 292017, she seems to be doing better. She denies having any chest pain or discomfort. The shortness of breath has improved. She sitting in the chair and she does not look in any respiratory distress. She does have bilateral rhonchi. Objective - Vital Signs Vital signs: Vital Signs Temp 98.2 F 01/29/18 08:00 Pulse 75 01/29/18 11:00 Resp 16 01/29/18 11:00 BP 107/61 01/29/18 11:00 Pulse Ox 95 01/29/18 11:00 Intake & Output 01/28/18 01/29/18 01/29/18 18:59 06:59 18:59 Intake Total 762.970 240 476.173 Output Total 2100 800 75 Balance -1337.030 -560 401.173 Weight 76.7 kg Intake: IV 220 240 80 0.9% 1000ml@20mls/hr KVO 220 80 Sodium Chloride 0.9% 1, 220 20 000 ml @ 75 mls/hr IV . [id number] ERIN Rx#:[id number] Intake, IV Titration 542.970 396.173 Amount Heparin Sod,Pork in 0.45% 542.970 396.173 NaCl 25,000 unit In 0.45 % NaCl 1 500ml.bag @ 12 UNITS/KG/HR 19.59 mls/hr IV .Q24H ERIN Rx#: [id number] Output: Urine 2100 800 75 Other: Voiding Method Bedside Commode Bedside Commode Bedside Commode # Voids 0 1 # Bowel Movements 1 - Constitutional General appearance: Present: no acute distress - Respiratory Respiratory: bilateral: CTA - Cardiovascular Rhythm: regular Heart sounds: normal: S1, S2 - Labs CBC & Chem 7: 01/29/18 04:13 01/29/18 04:13 Labs: Abnormal Lab Results - Last 24 Hours (Table) 01/28/18 01/28/18 01/29/18 Range/Units 15:12 21:40 04:13 WBC (3.8-10.6) k/uL Neutrophils # (1.3-7.7) k/uL APTT 31.7 H 65.0 H (22.0-30.0) sec BUN 28 H (7-17) mg/dL 01/29/18 01/29/18 Range/Units 04:13 04:13 WBC 13.4 H (3.8-10.6) k/uL Neutrophils # 10.8 H (1.3-7.7) k/uL APTT 54.0 H (22.0-30.0) sec BUN (7-17) mg/dL Microbiology - Last 24 Hours (Table) 01/27/18 15:36 Urine Culture - Final Urine,Voided 01/27/18 18:30 Nasal Screen MRSA/MSSA (NAHOM[facility]) - Final Nasal Swab 01/27/18 10:50 Blood Culture - Preliminary Blood No Growth after 24 hours Assessment and Plan Assessment: assessment #1 severe triple-vessel coronary artery disease #2 severe ischemic cardiomyopathy. #3 congestive heart failure exacerbation secondary to systolic dysfunction #4 hypertension #5 dyslipidemia Plan #1 continue the current medical treatment #2 the plan is to proceed with open heart this coming Wednesday #3 continue monitor the kidney function and electrolytes #4 follow-up with the patient Thank you for allowing us participate in her care and we'll continue following up with the patient
--- NOTE | 2018-01-29 15:28 | P.PN ---
Subjective Progress Note Date: 01/29/18 Principal diagnosis: Acute non-ST elevation [place] Status post cardiac catheterization; triple-vessel disease This is a pleasant 73-year-old female patient with a past medical history significant for hypertension and dyslipidemia with no documented history of coronary artery disease or congestive heart failure presented to the hospital complaining of shortness of breath for the last 3 weeks. The patient stated that the shortness of breath was started about 3 weeks ago. Beside that she describes epigastric discomfort. She stated she developed bilateral lower extremities edema and she was seen by her primary care physician who put her on Lasix with improvement in the edema. The patient did not have any symptoms of chest pain or discomfort, dizziness or lightheadedness , or any syncope. She does have epigastric discomfort mainly. The EKG showed sinus rhythm with nonspecific changes in the inferior leads. There was also some ST and T wave abnormalities seems to be diffuse. Beside that the d-dimer came in to be abnormal and the patient is in process to have a CTA of the chest to rule out any PE. The BNP came in to be also severely abnormal and the patient was given Lasix IV in the emergency room. The first set of troponin also came in to be slightly abnormal. The patient underwent an emergent heart catheterization and that revealed severe triple-vessel coronary artery disease. She was seen and evaluated by cardiothoracic surgeon and the plan is to proceed with CABG this coming Wednesday. 01/28/2018 Patient seen and examined at bedside in ICU; family members at bedside; she denies any chest pain or shortness of breath; patient is continued on aspirin, metoprolol, Lasix and Aldactone; statins and lisinopril has been continued; echocardiogram showed impaired left ventricular function with ejection fraction of 25-30% 01/29/2018 Patient remains in ICU; sitting up in a chair and denies any chest pain or shortness of breath; overall patient seems to be doing better Objective - Vital Signs Vital signs: Vital Signs Temp 98.2 F 01/29/18 08:00 Pulse 75 01/29/18 11:00 Resp 16 01/29/18 11:00 BP 107/61 01/29/18 11:00 Pulse Ox 95 01/29/18 11:00 Intake & Output 01/28/18 01/29/18 01/29/18 18:59 06:59 18:59 Intake Total 762.970 240 476.173 Output Total 2100 800 75 Balance -1337.030 -560 401.173 Weight 76.7 kg Intake: IV 220 240 80 0.9% 1000ml@20mls/hr KVO 220 80 Sodium Chloride 0.9% 1, 220 20 000 ml @ 75 mls/hr IV . [id number] ERIN Rx#:[id number] Intake, IV Titration 542.970 396.173 Amount Heparin Sod,Pork in 0.45% 542.970 396.173 NaCl 25,000 unit In 0.45 % NaCl 1 500ml.bag @ 12 UNITS/KG/HR 19.59 mls/hr IV .Q24H ERIN Rx#: [id number] Output: Urine 2100 800 75 Other: Voiding Method Bedside Commode Bedside Commode Bedside Commode # Voids 0 1 # Bowel Movements 1 - Exam On exam, alert and oriented x3. HEENT: Conjunctivae normal. eyes normal. NECK: No JVD. No thyroid enlargement. No LNs CARDIOVASCULAR: S1, S2 muffled. No murmur RESPIRATION: Breath sounds diminished in the bases. No rhonchi or crackles. No bronchial breathing. ABDOMEN: Soft, nontender . No guarding. no masses palpable. No ascites, No hepatosplenomegaly.Bowel sounds heard. LEGS: No edema. no swelling NERVOUS SYSTEM: Cranial N 2-12 grossly normal. Moves all 4 limbs. No focal deficits. No sensory deficit. No signs of cerebellar dysfucntion. Skin: no ulcer no rash Joints: No active swelling. No inflammation. Lymphatic system. No LN neck axilla or groin. - Labs CBC & Chem 7: 01/29/18 04:13 01/29/18 04:13 Labs: Abnormal Lab Results - Last 24 Hours (Table) 01/28/18 01/28/18 01/29/18 Range/Units 15:12 21:40 04:13 WBC (3.8-10.6) k/uL Neutrophils # (1.3-7.7) k/uL APTT 31.7 H 65.0 H (22.0-30.0) sec BUN 28 H (7-17) mg/dL 01/29/18 01/29/18 Range/Units 04:13 04:13 WBC 13.4 H (3.8-10.6) k/uL Neutrophils # 10.8 H (1.3-7.7) k/uL APTT 54.0 H (22.0-30.0) sec BUN (7-17) mg/dL Microbiology - Last 24 Hours (Table) 01/27/18 10:50 Blood Culture - Preliminary Blood No Growth after 48 hours 01/27/18 15:36 Urine Culture - Final Urine,Voided 01/27/18 18:30 Nasal Screen MRSA/MSSA (NAHOMY) - Final Nasal Swab Assessment and Plan Assessment: 1. Severe triple-vessel coronary artery disease; stool study catheterization 2. Non-ST elevation [place] 3. Severe ischemic cardiomyopathy 4. Acute exacerbation systolic CHF 5. Hypertension 6. Hyperlipidemia Plan; Patient remains in ICU and plan is to continue current medical management; patient is planned for open heart surgery coming Wednesday; patient and family updated on plan of care and are agreeable; we will continue to monitor patient in ICU and monitor electrolytes and renal function monitor CBC; further recommendations pending clinical course of patient Time with Patient: Greater than 30
[2018-01-29] MEDS: CRESTOR 20 MG PO SCH (21:14)
[2018-01-30] MEDS: HEPARIN SOD,PORK IN 0.45% NACL 25,000 UNIT in 0.45% NACL 1 500ML.BAG IV SCH (05:35)
[2018-01-30 05:57] LABS: Basophils # (A) 0.1 k/uL (0-0.2); Basophils % (A) 0 %; Calcium 8.9 mg/dL (8.4-10.2); Eosinophils # (A) 0.4 k/uL (0-0.7); Eosinophils % (A) 3 %; HCT 38.3 % (34.0-46.0); HGB 12.7 gm/dL (11.4-16.0); Lymphocytes # (A) 1.1 k/uL (1.0-4.8); Lymphocytes % (A) 10 %; MCH 30.8 pg (25.0-35.0); MCHC 33.2 g/dL (31.0-37.0); MCV 92.8 fL (80.0-100.0); Magnesium 2.1 mg/dL (1.6-2.3); Mean Platelet Volume 8.8; Monocytes # (A) 0.7 k/uL (0-1.0); Monocytes % (A) 6 %; Neutrophils # (A) 9.2 k/uL (1.3-7.7); Neutrophils % (A) 80 %; Phosphorus 3.7 mg/dL (2.5-4.5); Platelet Count 224 k/uL (150-450); Potassium 4.1 mmol/L (3.5-5.1); RBC 4.13 m/uL (3.80-5.40); RDW 15.4 % (11.5-15.5); WBC 11.6 k/uL (3.8-10.6)
--- NOTE | 2018-01-30 06:48 | XR ---
EXAMINATION TYPE: XR chest 1V DATE OF EXAM: 01/30/2018 HISTORY: congestive heart failure. REFERENCE: Previous study dated 01/29/2018. FINDINGS: Lung volumes are prominent. The heart is enlarged. There is vascular congestion and mild in terstitial change. Pleural spaces are clear. IMPRESSION: SLIGHT WORSENING IN THE APPEARANCE OF THE PATIENT'S CONGESTIVE HEART FAILURE.
--- NOTE | 2018-01-30 07:40 | P.PN ---
Subjective Progress Note Date: 01/30/18 Principal diagnosis: Symptomatic multivessel coronary artery disease, with left main disease, non-ST elevated myocardial infarction this admission, congestive heart failure exacerbation secondary to systolic dysfunction, severe ischemic cardiomyopathy, history of gout, remote history of nicotine dependence quit 30 years ago, hypertension, and dyslipidemia. Patient is laying in bed with her head elevated. She is in no acute distress. Her daughter is at her bedside. Questions answered to the best of my ability. The patient denies any complaints of pain or shortness of breath at this time. She reports that she did have some cramping to her feet last night. She is achieving 5201-0952 mL on her incentive spirometry. Objective - Vital Signs Vital signs: Vital Signs Temp 97.8 F 01/30/18 00:00 Pulse 62 01/30/18 07:00 Resp 15 01/30/18 07:00 BP 103/55 01/30/18 07:00 Pulse Ox 94 L 01/30/18 07:00 Intake & Output 01/29/18 01/30/18 01/30/18 18:59 06:59 18:59 Intake Total 078.187 5792 Output Total 1775 2600 Balance -798.827 -1190 Weight 75.4 kg Intake: IV 220 260 0.9% 1000ml@20mls/hr KVO 220 260 Intake, IV Titration 396.173 500 Amount Heparin Sod,Pork in 0.45% 396.173 500 NaCl 25,000 unit In 0.45 % NaCl 1 500ml.bag @ 12 UNITS/KG/HR 19.59 mls/hr IV .Q24H [facility] Rx#: [id number] Oral 360 650 Output: Urine 1775 2600 Other: Voiding Method Bedside Commode Bedside Commode # Bowel Movements 1 - Constitutional General appearance: Present: cooperative, no acute distress, obese - EENT ENT: Present: hearing grossly normal - Neck Details: Neck is supple, no JVD, no lymphadenopathy. - Respiratory Details: Lung sounds essentially clear to her upper lobes, scattered crackles to bilateral bases. Respirations are symmetrical and unlabored. Oxygen saturations are 94% on 3 L nasal cannula. She is achieving 1250 mL to 1500 mL on her incentive spirometry. - Cardiovascular Details: Regular rhythm and rate. S1 and S2 present, negative for S3, gallop or murmur. Bedside telemetry showing normal sinus rhythm heart rate 65. No edema present. Knee-high sequential compression devices in place to bilateral lower extremities. - Gastrointestinal Gastrointestinal Comment(s): Abdomen soft, nontender and nondistended. Obese. No guarding or rigidity. Active bowel sounds to all 4 abdominal quadrants. Bowel movement this a.m. 05/2018. - Genitourinary Genitourinary Comment(s): Urine output adequate. Voiding clear yellow urine. 1150 mL of urine output in the last 8 hours. - Integumentary Integumentary Comment(s): Skin is warm and dry. No clubbing or cyanosis present. - Neurologic Neurologic: Present: CNII-XII intact - Musculoskeletal Musculoskeletal: Present: gait normal, strength equal bilaterally - Psychiatric Psychiatric: Present: A&O x's 3, appropriate affect, intact judgment & insight - Allied health notes Allied health notes reviewed: nursing - Labs CBC & Chem 7: 01/30/18 04:37 01/30/18 04:37 Labs: Abnormal Lab Results - Last 24 Hours (Table) 01/30/18 01/30/18 01/30/18 Range/Units 04:37 04:37 04:37 WBC 11.6 H (3.8-10.6) k/uL Neutrophils # 9.2 H (1.3-7.7) k/uL APTT 60.1 H (22.0-30.0) sec BUN 24 H (7-17) mg/dL Glucose 103 H (74-99) mg/dL Microbiology - Last 24 Hours (Table) 01/27/18 10:50 Blood Culture - Preliminary Blood No Growth after 48 hours - Imaging and Cardiology Chest x-ray: report reviewed, image reviewed Assessment and Plan (1) Coronary artery disease Current Visit: Yes Status: Acute Code(s): I25.10 - ATHSCL HEART DISEASE OF [place] CORONARY ARTERY W/O ANG PCTRS SNOMED Code(s): 73161121 (2) Hypertension Current Visit: Yes Status: Acute Code(s): I10 - ESSENTIAL (PRIMARY) HYPERTENSION SNOMED Code(s): 66853872 (3) Hyperlipidemia Current Visit: Yes Status: Acute Code(s): E78.5 - HYPERLIPIDEMIA, UNSPECIFIED SNOMED Code(s): 47560254 (4) Acute exacerbation of congestive heart failure Current Visit: Yes Status: Acute Code(s): I50.9 - HEART FAILURE, UNSPECIFIED SNOMED Code(s): 82201457 (5) Ischemic cardiomyopathy Current Visit: Yes Status: Acute Code(s): I25.5 - ISCHEMIC CARDIOMYOPATHY SNOMED Code(s): 977849472 (6) Elevated d-dimer Current Visit: Yes Status: Acute Code(s): R79.89 - OTHER SPECIFIED ABNORMAL FINDINGS OF BLOOD CHEMISTRY SNOMED Code(s): 689529325 (7) NSTEMI (non-ST elevated myocardial infarction) Current Visit: Yes Status: Acute Code(s): I21.4 - NON-ST ELEVATION (NSTEMI) MYOCARDIAL INFARCTION SNOMED Code(s): 560289343 Plan: 1. Continue to optimize her medically, continue her aspirin, statin, heparin drip, beta saw, and diuretics. 2. Continue to encourage use of her incentive spirometry every hour while awake. 3. Continue to review preoperative teaching with the patient and her family. 4. DVT and GI prophylaxis. 5. She is scheduled for myocardial revascularization surgery to be performed by Dr. Amanda Mendez on 01/31/2018. 6. Pulmonary recommendations per Dr. Gallardo. 7. Due to the patient's complaints of cramping to her feet and history of gout , we will send a uric acid level. 8. Further recommendations to follow as patient progresses in her care. Time with Patient: Greater than 30
[2018-01-30] MEDS: FUROSEMIDE 10 MG/ML 4 ML VIAL IV SCH (07:45)
[2018-01-30] MEDS: ASPIRIN 325 MG TAB PO SCH (07:46)
[2018-01-30] MEDS: MUPIROCIN 2% OINT 22 GM TUBE TOPICAL SCH ×2 (07:46→20:10)
[2018-01-30] MEDS: METOPROLOL TARTRATE 12.5 MG TAB PO SCH ×2 (07:46→20:10)
[2018-01-30] MEDS: SPIRONOLACTONE 25 MG TAB PO SCH (07:46)
[2018-01-30] MEDS: PANTOPRAZOLE 40 MG TABLET PO SCH (07:46)
--- NOTE | 2018-01-30 12:20 | P.PN ---
Subjective Progress Note Date: 01/30/18 Principal diagnosis: Acute non-ST elevation myocardial infarction and severe triple-vessel coronary artery disease. 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 Patient used to be a heavy smoker, however she quit over 10 years ago. She was admitted this time with recurrent episodes of shortness of breath, cough, and wheezing. Patient has been on multiple courses of antibiotics, and prednisone by her primary care physician, however over the last 3 weeks, she has not been noticing significant improvement. Finally she came into the emergency room, and this time she was describing shortness of breath, epigastric discomfort, and significant fluid retention and swelling in her lower extremities. Chest x- ray was suggestive of mild interstitial edema. Patient was seen by cardiology on consultation, CT angiogram of the chest showed no evidence of pulmonary embolism. Her BNP level was elevated, patient did receive IV Lasix, and her troponin was also noted to be abnormal. Underwent cardiac catheterization, and she was found to have chronic total occlusion of the RCA with critical disease involving the left main and ostial left circumflex and ostial LAD. Her left ventricular end-diastolic pressure was 45. Patient was seen by cardiothoracic surgery on consultation, and she would likely undergo myocardial revascularization on early Wednesday. Considering her previous pulmonary history, I was asked to see her on consultation. Apparently since admission the patient responded well to diuretics, she is also on DuoNeb updrafts, and seems to be doing much better compared to how she felt upon admission. Hardly any cough, no wheezing, no fever, no chills, no hemoptysis, no chest pain. Patient felt better since admission. Chest x-ray continues to show mild interstitial pattern with minimal venous congestion, felt to be more of interstitial edema, improving with diuretics. Likely, patient sounded fairly clear, no wheezing, no crackles, no rhonchi. Patient was reevaluated today on 01/29/2018, doing quite well, asymptomatic, no cough no wheezing no shortness of breath, no chest pain. She is doing well with incentive spirometry, and she is likely to undergo myocardial revascularization early next week/Wednesday. CBC is relatively normal basic metabolic profile is normal. Chest x-ray showed mild vascular venous congestion. And mild interstitial changes not quite appreciated on physical examination. Reevaluated on 01/30/2018, patient is doing well, asymptomatic, no cough no wheezing no shortness of breath and no chest pain. Her bedside PFT showed mild restriction, no evidence of obstructive airway disease.labs were all reviewed including CBC and basic metabolic profile, and they seem to be relatively normal. Patient is scheduled for myocardial revascularization tomorrow. Objective - Vital Signs Vital signs: Vital Signs Temp 98.1 F 01/30/18 08:00 Pulse 77 01/30/18 11:00 Resp 19 01/30/18 11:00 BP 127/86 01/30/18 11:00 Pulse Ox 94 L 01/30/18 11:00 Intake & Output 01/29/18 01/30/18 01/30/18 18:59 06:59 18:59 Intake Total 193.332 8087 440 Output Total 1775 2600 1600 Balance -798.827 -1190 -1160 Weight 75.4 kg Intake: IV 220 260 80 0.9% 1000ml@20mls/hr KVO 220 260 80 Intake, IV Titration 396.173 500 Amount Heparin Sod,Pork in 0.45% 396.173 500 NaCl 25,000 unit In 0.45 % NaCl 1 500ml.bag @ 12 UNITS/KG/HR 19.59 mls/hr IV .Q24H [facility] Rx#: [id number] Oral 360 650 360 Output: Urine 1775 2600 1600 Other: Voiding Method Bedside Commode Bedside Commode Bedside Commode # Bowel Movements 1 1 - Exam Physical Exam: Revealed a 72-year-old female, pleasant, resting in bed, in no form of respiratory distress. Head: Atraumatic, normocephalic. Eyes: PERRLA, EOMI, no icterus HEENT:[ Moist mucous membranes, Neck is supple.] [No neck masses.] [No thyromegaly.] [No JVD.] Chest: [Clear throughout, no crackles, no rhonchi, no wheezes.] Cardiac Exam: [Normal S1 and S2, no S3 gallop, no murmur.] Abdomen: [Soft, nontender, no megaly, no rebound, no guarding, normal bowel sounds.] Extremities: [No clubbing, trace of bipedal edema, no cyanosis.] Good pulses noted bilaterally Neurological Exam: [No focal neurologic deficit. Psychiatric: Normal mood and affect, normal mental status examination. Lymphatics: No lymphadenopathy. Musculoskeletal normal range of motion, no deformities. No weakness was noted.] - Labs CBC & Chem 7: 01/30/18 04:37 01/30/18 04:37 Labs: Abnormal Lab Results - Last 24 Hours (Table) 01/30/18 01/30/18 01/30/18 Range/Units 04:37 04:37 04:37 WBC 11.6 H (3.8-10.6) k/uL Neutrophils # 9.2 H (1.3-7.7) k/uL APTT (22.0-30.0) sec BUN 24 H (7-17) mg/dL Glucose 103 H (74-99) mg/dL Uric Acid (3.7-7.4) mg/dL Crossmatch See Detail 01/30/18 01/30/18 Range/Units 04:37 04:37 WBC (3.8-10.6) k/uL Neutrophils # (1.3-7.7) k/uL APTT 60.1 H (22.0-30.0) sec BUN (7-17) mg/dL Glucose (74-99) mg/dL Uric Acid 9.8 H (3.7-7.4) mg/dL Crossmatch Microbiology - Last 24 Hours (Table) 01/27/18 10:50 Blood Culture - Preliminary Blood No Growth after 48 hours Assessment and Plan Assessment: Impression: 1 acute non-ST elevation myocardial infarction 2 severe triple-vessel coronary artery disease 3 severe ischemic cardiomyopathy 4 acute systolic congestive heart failure, 4 history of multiple comorbidities including hypertension, dyslipidemia, extrinsic ALLERGIC alveolitis, possible mild component of COPD related to her previous remote smoking history. Recommendation: Patient continues to do well, cleared for myocardial revascularization tomorrow, considered relatively low to moderate operative risk. Time with Patient: Less than 30
--- NOTE | 2018-01-30 12:37 | P.PN ---
Subjective Progress Note Date: 01/30/18 Principal diagnosis: Acute coronary syndrome This is a pleasant 73-year-old female patient with a past medical history significant for hypertension and dyslipidemia with no documented history of coronary artery disease or congestive heart failure presented to the hospital complaining of shortness of breath for the last 3 weeks. The patient stated that the shortness of breath was started about 3 weeks ago. Beside that she describes epigastric discomfort. She stated she developed bilateral lower extremities edema and she was seen by her primary care physician who put her on Lasix with improvement in the edema. The patient did not have any symptoms of chest pain or discomfort, dizziness or lightheadedness , or any syncope. She does have epigastric discomfort mainly. The EKG showed sinus rhythm with nonspecific changes in the inferior leads. There was also some ST and T wave abnormalities seems to be diffuse. Beside that the d-dimer came in to be abnormal and the patient is in process to have a CTA of the chest to rule out any PE. The BNP came in to be also severely abnormal and the patient was given Lasix IV in the emergency room. The first set of troponin also came in to be slightly abnormal. The patient underwent an emergent heart catheterization and that revealed severe triple-vessel coronary artery disease. She was seen and evaluated by cardiothoracic surgeon and the plan is to proceed with CABG this coming Wednesday. On follow-up with the patient today on January 302017, she seems to be doing better. She continues to be asymptomatic. The bilateral lower extremities edema has improved. The plan is to proceed with surgery tomorrow. Objective - Vital Signs Vital signs: Vital Signs Temp 98.1 F 01/30/18 08:00 Pulse 77 01/30/18 11:00 Resp 19 01/30/18 11:00 BP 127/86 01/30/18 11:00 Pulse Ox 94 L 01/30/18 11:00 Intake & Output 01/29/18 01/30/18 01/30/18 18:59 06:59 18:59 Intake Total 307.343 9986 440 Output Total 1775 2600 1600 Balance -798.827 -1190 -1160 Weight 75.4 kg Intake: IV 220 260 80 0.9% 1000ml@20mls/hr KVO 220 260 80 Intake, IV Titration 396.173 500 Amount Heparin Sod,Pork in 0.45% 396.173 500 NaCl 25,000 unit In 0.45 % NaCl 1 500ml.bag @ 12 UNITS/KG/HR 19.59 mls/hr IV .Q24H [facility] Rx#: [id number] Oral 360 650 360 Output: Urine 1775 2600 1600 Other: Voiding Method Bedside Commode Bedside Commode Bedside Commode # Bowel Movements 1 1 - Constitutional General appearance: Present: no acute distress - Respiratory Respiratory: bilateral: CTA - Cardiovascular Rhythm: regular Heart sounds: normal: S1, S2 - Labs CBC & Chem 7: 01/30/18 04:37 01/30/18 04:37 Labs: Abnormal Lab Results - Last 24 Hours (Table) 01/30/18 01/30/18 01/30/18 Range/Units 04:37 04:37 04:37 WBC 11.6 H (3.8-10.6) k/uL Neutrophils # 9.2 H (1.3-7.7) k/uL APTT (22.0-30.0) sec BUN 24 H (7-17) mg/dL Glucose 103 H (74-99) mg/dL Uric Acid (3.7-7.4) mg/dL Crossmatch See Detail 01/30/18 01/30/18 Range/Units 04:37 04:37 WBC (3.8-10.6) k/uL Neutrophils # (1.3-7.7) k/uL APTT 60.1 H (22.0-30.0) sec BUN (7-17) mg/dL Glucose (74-99) mg/dL Uric Acid 9.8 H (3.7-7.4) mg/dL Crossmatch Microbiology - Last 24 Hours (Table) 01/27/18 10:50 Blood Culture - Preliminary Blood No Growth after 48 hours Assessment and Plan Assessment: assessment #1 severe triple-vessel coronary artery disease #2 severe ischemic cardiomyopathy. #3 congestive heart failure exacerbation secondary to systolic dysfunction #4 hypertension #5 dyslipidemia Plan #1 continue the current medical treatment #2 the plan is to proceed with open heart this coming Wednesday #3 continue monitor the kidney function and electrolytes #4 follow-up with the patient Thank you for allowing us participate in her care and we'll continue following up with the patient
[2018-01-30] MEDS ORDERED: MIDAZOLAM 2 MG/2 ML VIAL IV PRN (16:16)
[2018-01-30] MEDS ORDERED: LACTATED RINGERS 1,000 ML IV SCH (16:16)
--- NOTE | 2018-01-30 16:54 | P.PN ---
Subjective Progress Note Date: 01/30/18 Principal diagnosis: Acute non-ST elevation [place] Status post cardiac catheterization; triple-vessel disease This is a pleasant 73-year-old female patient with a past medical history significant for hypertension and dyslipidemia with no documented history of coronary artery disease or congestive heart failure presented to the hospital complaining of shortness of breath for the last 3 weeks. The patient stated that the shortness of breath was started about 3 weeks ago. Beside that she describes epigastric discomfort. She stated she developed bilateral lower extremities edema and she was seen by her primary care physician who put her on Lasix with improvement in the edema. The patient did not have any symptoms of chest pain or discomfort, dizziness or lightheadedness , or any syncope. She does have epigastric discomfort mainly. The EKG showed sinus rhythm with nonspecific changes in the inferior leads. There was also some ST and T wave abnormalities seems to be diffuse. Beside that the d-dimer came in to be abnormal and the patient is in process to have a CTA of the chest to rule out any PE. The BNP came in to be also severely abnormal and the patient was given Lasix IV in the emergency room. The first set of troponin also came in to be slightly abnormal. The patient underwent an emergent heart catheterization and that revealed severe triple-vessel coronary artery disease. She was seen and evaluated by cardiothoracic surgeon and the plan is to proceed with CABG this coming Wednesday. 01/28/2018 Patient seen and examined at bedside in ICU; family members at bedside; she denies any chest pain or shortness of breath; patient is continued on aspirin, metoprolol, Lasix and Aldactone; statins and lisinopril has been continued; echocardiogram showed impaired left ventricular function with ejection fraction of 25-30% 01/29/2018 Patient remains in ICU; sitting up in a chair and denies any chest pain or shortness of breath; overall patient seems to be doing better 01/30/2018 Patient remains in ICU and remains chest pain-free; patient relates that her swelling in both lower extremities is improved; she remains on Lasix and Aldactone Patient is scheduled for CABG in the morning Objective - Vital Signs Vital signs: Vital Signs Temp 97.9 F 01/30/18 16:00 Pulse 71 01/30/18 16:00 Resp 16 01/30/18 16:00 BP 114/61 01/30/18 16:00 Pulse Ox 94 L 01/30/18 16:00 Intake & Output 01/29/18 01/30/18 01/30/18 18:59 06:59 18:59 Intake Total 408.183 1805 900 Output Total 1775 2600 3150 Balance -798.827 -1190 -2250 Weight 75.4 kg Intake: IV 220 260 180 0.9% 1000ml@20mls/hr KVO 220 260 180 Intake, IV Titration 396.173 500 Amount Heparin Sod,Pork in 0.45% 396.173 500 NaCl 25,000 unit In 0.45 % NaCl 1 500ml.bag @ 12 UNITS/KG/HR 19.59 mls/hr IV .Q24H [facility] Rx#: [id number] Oral 360 650 720 Output: Urine 1775 2600 3150 Other: Voiding Method Bedside Commode Bedside Commode Bedside Commode # Bowel Movements 1 1 - Exam On exam, alert and oriented x3. HEENT: Conjunctivae normal. eyes normal. NECK: No JVD. No thyroid enlargement. No LNs CARDIOVASCULAR: S1, S2 muffled. No murmur RESPIRATION: Breath sounds diminished in the bases. No rhonchi or crackles. No bronchial breathing. ABDOMEN: Soft, nontender . No guarding. no masses palpable. No ascites, No hepatosplenomegaly.Bowel sounds heard. LEGS: No edema. no swelling NERVOUS SYSTEM: Cranial N 2-12 grossly normal. Moves all 4 limbs. No focal deficits. No sensory deficit. No signs of cerebellar dysfucntion. Skin: no ulcer no rash Joints: No active swelling. No inflammation. Lymphatic system. No LN neck axilla or groin. - Labs CBC & Chem 7: 01/30/18 04:37 01/30/18 04:37 Labs: Abnormal Lab Results - Last 24 Hours (Table) 01/30/18 01/30/18 01/30/18 Range/Units 04:37 04:37 04:37 WBC 11.6 H (3.8-10.6) k/uL Neutrophils # 9.2 H (1.3-7.7) k/uL APTT (22.0-30.0) sec BUN 24 H (7-17) mg/dL Glucose 103 H (74-99) mg/dL Uric Acid (3.7-7.4) mg/dL Crossmatch See Detail 01/30/18 01/30/18 Range/Units 04:37 04:37 WBC (3.8-10.6) k/uL Neutrophils # (1.3-7.7) k/uL APTT 60.1 H (22.0-30.0) sec BUN (7-17) mg/dL Glucose (74-99) mg/dL Uric Acid 9.8 H (3.7-7.4) mg/dL Crossmatch Microbiology - Last 24 Hours (Table) 01/27/18 10:50 Blood Culture - Preliminary Blood No Growth after 72 hours Assessment and Plan Assessment: 1. Severe triple-vessel coronary artery disease; stool study catheterization 2. Non-ST elevation [place] 3. Severe ischemic cardiomyopathy 4. Acute exacerbation systolic CHF 5. Hypertension 6. Hyperlipidemia Plan; Patient remains in ICU and plan is to continue current medical management; patient is planned for open heart surgery coming Wednesday; patient and family updated on plan of care and are agreeable; we will continue to monitor patient in ICU and monitor electrolytes and renal function monitor CBC; further recommendations pending clinical course of patient Time with Patient: Greater than 30
[2018-01-30] MEDS: CRESTOR 20 MG PO SCH (20:10)
[2018-01-31 04:40] LABS: Basophils % (A) 0 %; Eosinophils # (A) 0.3 k/uL (0-0.7); Eosinophils % (A) 3 %; HCT 40.1 % (34.0-46.0); HGB 13.2 gm/dL (11.4-16.0); Lymphocytes # (A) 1.2 k/uL (1.0-4.8); Lymphocytes % (A) 10 %; MCH 30.3 pg (25.0-35.0); MCHC 32.9 g/dL (31.0-37.0); MCV 92.1 fL (80.0-100.0); Mean Platelet Volume 8.4; Monocytes # (A) 0.5 k/uL (0-1.0); Monocytes % (A) 4 %; Neutrophils % (A) 81 %; Platelet Count 233 k/uL (150-450); RBC 4.35 m/uL (3.80-5.40); WBC 11.1 k/uL (3.8-10.6)
[2018-01-31] MEDS ORDERED: DEXTROSE 5% IN WATER 1,000 ML with POTASSIUM CHLORIDE 25 MEQ, SODIUM CHLORIDE 2.5MEQ/ML... IV PRN ×6 (05:00)
[2018-01-31] MEDS ORDERED: ceFAZolin 2 GM in SODIUM CHLORIDE 0.9% 30 ML IVPB PRN (05:00)
[2018-01-31] MEDS ORDERED: HEPARIN SODIUM 1,000 UN/ML (10ML VL) IV PRN (05:00)
[2018-01-31] MEDS ORDERED: MAGNESIUM SULFATE SYG 4.06 MEQ/ML SYRINGE IV PRN (05:00)
[2018-01-31] MEDS ORDERED: CHLORHEXIDINE GLUCONATE 15 ML CUP MUCOUS MEM PRN (05:00)
[2018-01-31] MEDS ORDERED: PROTAMINE SULFATE 250 MG in EMPTY BAG 1 BAG IV PRN (05:00)
[2018-01-31] MEDS ORDERED: NOREPINEPHRIN 4 MG-0.9% NS PMX 4 MG/250 ML ML IV PRN (05:00)
[2018-01-31] MEDS ORDERED: MANNITOL 25% 12.5 GM/50 ML VIAL IV PRN ×2 (05:00)
[2018-01-31] MEDS ORDERED: NITROGLYCERIN-D5W PMX 50 MG in DEXTROSE/WATER 1 250ML.BAG IV PRN (05:00)
[2018-01-31] MEDS ORDERED: PROTAMINE SULFATE 10 MG/ML 25 ML VIAL IV PRN (05:00)
[2018-01-31] MEDS ORDERED: ceFAZolin 2,000 MG in SODIUM CHLORIDE 0.9% 30 ML IVPB PRN (05:00)
[2018-01-31] MEDS ORDERED: ceFAZolin 1,000 MG in SODIUM CHLORIDE 0.9% IRRIGATIO 1,000 ML IRRIGATION PRN (05:00)
[2018-01-31] MEDS ORDERED: ALBUMIN HUMAN 5% 500 ML in EMPTY BAG 1 BAG IVPB PRN ×6 (05:00)
[2018-01-31] MEDS ORDERED: METOPROLOL TARTRATE 12.5 MG TAB PO ONE (05:00)
[2018-01-31] MEDS ORDERED: INSULIN REGULAR 100 UNIT in SODIUM CHLORIDE 0.9% 100 ML IV PRN (05:00)
[2018-01-31] MEDS ORDERED: PHENYLEPHRINE 40 MG in SODIUM CHLORIDE 0.9% 250 ML IV PRN (05:00)
[2018-01-31] MEDS ORDERED: DEXTROSE 5% IN WATER 1,000 ML with POTASSIUM CHLORIDE 110 MEQ, MAGNESIUM SULFATE 16 MEQ... IV PRN ×5 (05:00)
[2018-01-31] MEDS ORDERED: PROPOFOL 1,000 MG in EMPTY BAG 1 BAG IV PRN (05:00)
[2018-01-31] MEDS ORDERED: ALBUMIN HUMAN 25% 50 ML in EMPTY BAG 1 BAG IVPB PRN (05:00)
[2018-01-31] MEDS ORDERED: PAPAVERINE 360 MG in SODIUM CHLORIDE 0.9% 90 ML IV PRN (05:00)
[2018-01-31] MEDS ORDERED: HEPARIN SODIUM,PORCINE 5,000 UNIT in SODIUM CHLORIDE 0.9% 500 ML IV PRN (05:00)
[2018-01-31] MEDS ORDERED: TRANEXAMIC ACID 2,000 MG in SODIUM CHLORIDE 0.9% 180 ML IV PRN (05:00)
[2018-01-31] MEDS ORDERED: NITROGLYCERIN-D5W PMX 25 MG/250 ML BTL IV PRN (05:00)
[2018-01-31] MEDS ORDERED: CLEVIDIPINE BUTYRATE 25 MG in EMPTY BAG 1 BAG IV PRN (05:00)
[2018-01-31] MEDS ORDERED: PHENYLEPHRINE-0.9% NACL SYG 1 MG/10 ML SYRINGE IV PRN ×4 (05:00)
[2018-01-31] MEDS ORDERED: ASPIRIN 325 MG TAB PO ONE (05:00)
[2018-01-31] MEDS ORDERED: SODIUM BICARB 8.4% 50 ML SYR (1 MEQ/ML) IV PRN (05:00)
[2018-01-31] MEDS ORDERED: LACTATED RINGERS 1,000 ML IV SCH (05:00)
[2018-01-31] MEDS ORDERED: CALCIUM CHLORIDE 100 MG/ML 10 ML SYRINGE IVP PRN (05:00)
[2018-01-31 05:10] LABS: Calcium 9.6 mg/dL (8.4-10.2); Magnesium 2.4 mg/dL (1.6-2.3); Phosphorus 3.9 mg/dL (2.5-4.5); Potassium 3.9 mmol/L (3.5-5.1)
[2018-01-31] MEDS ORDERED: LACTATED RINGERS 1,000 ML IV ONE (06:11)
[2018-01-31] MEDS ORDERED: fentaNYL (PF) 50 MCG/ML 50 ML VIAL ONE (08:00)
[2018-01-31] MEDS ORDERED: ELECTROLYTE-R (PH 7.4) 1,000 ML IV.SOLN IV ONE (08:00)
[2018-01-31] MEDS ORDERED: HEPARIN SODIUM,PORCINE 10,000 UNIT/ML 1 ML VIAL ONE (08:00)
[2018-01-31] MEDS ORDERED: SODIUM CHLORIDE 0.9% 250 ML BAG ONE (08:00)
[2018-01-31] MEDS ORDERED: MIDAZOLAM 2 MG/2 ML VIAL ONE (08:00)
[2018-01-31] MEDS ORDERED: PHENYLEPHRINE-0.9% NACL SYG 1 MG/10 ML SYRINGE ONE (08:00)
[2018-01-31] MEDS ORDERED: VECURONIUM 10 MG VIAL IV ONE (08:00)
[2018-01-31] MEDS ORDERED: LIDOCAINE 2% SYG (PF) 100 MG/5 ML ONE (08:00)
[2018-01-31] MEDS ORDERED: PROPOFOL 10 MG/ML 20 ML VIAL IV ONE (08:00)
[2018-01-31] MEDS ORDERED: CALCIUM CHLORIDE 100 MG/ML 10 ML SYRINGE ONE (08:00)
[2018-01-31] MEDS ORDERED: ALBUMIN HUMAN 5% 500 ML VIAL IVPB ONE (08:00)
[2018-01-31] MEDS ORDERED: TRANEXAMIC ACID 1,000 MG/10 ML VIAL ONE (08:00)
[2018-01-31] MEDS ORDERED: MAGNESIUM SULFATE 4 MEQ/ML 2 ML VIAL ONE (08:00)
[2018-01-31] MEDS ORDERED: PROTAMINE SULFATE 10 MG/ML 25 ML VIAL IV ONE (08:00)
--- NOTE | 2018-01-31 09:33 | P.PN ---
Subjective Progress Note Date: 01/31/18 Principal diagnosis: Bypass grafting Progress note dated 01/31/2018 This is a 72-year-old female with multiple medical problems including hypertension hyperlipidemia extrinsic ALLERGIC alveolitis as well as coronary artery disease. The patient's going to the operating room today for a bypass grafting. She's been seen by my partner for the last couple of days. She did have a CT angiogram that was negative for pulmonary embolism. When she was seen yesterday, she was doing well and she was asymptomatic. No chest pain no shortness of breath and difficulty breathing. No coughing or wheezing. Labs were in order. This morning, prior to surgery the patient still doing well. No major issues or problems. 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 Objective - Vital Signs Vital signs: Vital Signs Temp 98.6 F 01/31/18 06:16 Pulse 63 01/31/18 06:16 Resp 15 01/31/18 06:16 BP 115/62 01/31/18 06:16 Pulse Ox 92 L 01/31/18 06:16 Intake & Output 01/30/18 01/31/18 01/31/18 18:59 06:59 18:59 Intake Total 940 220 Output Total 3150 300 Balance -2210 -80 Weight 78.9 kg Intake: IV 220 220 0.9% 1000ml@20mls/hr KVO 220 220 Oral 720 Output: Urine 3150 300 Other: Voiding Method Bedside Commode Bedside Commode # Voids 0 # Bowel Movements 1 - Exam No acute distress, oriented 3. HEENT examination is grossly unremarkable. Mucous membranes are moist. No oral lesions. Neck supple. Full range of motion. No adenopathy thyromegaly or neck vein distention. Cardiovascular examination reveals regular rhythm rate. S1-S2 normal. No S3 or S4. No discernible murmur noted. Lungs reveal clear breath sounds. Her sounds are equal bilaterally. No adventitious lung sounds including wheezes rhonchi or crackles. Abdomen soft bowel sounds are heard. No masses or tenderness. Extremities are intact. No cyanosis clubbing or edema. Skin is without rash or lesion. Neurologic examination is brief but nonfocal. - Labs CBC & Chem 7: 01/31/18 03:54 01/31/18 03:54 Labs: Abnormal Lab Results - Last 24 Hours (Table) 01/30/18 01/31/18 01/31/18 Range/Units 04:37 03:54 03:54 WBC 11.1 H (3.8-10.6) k/uL Neutrophils # 9.0 H (1.3-7.7) k/uL APTT (22.0-30.0) sec BUN 22 H (7-17) mg/dL Magnesium 2.4 H (1.6-2.3) mg/dL Crossmatch See Detail 01/31/18 Range/Units 03:54 WBC (3.8-10.6) k/uL Neutrophils # (1.3-7.7) k/uL APTT 58.6 H (22.0-30.0) sec BUN (7-17) mg/dL Magnesium (1.6-2.3) mg/dL Crossmatch Microbiology - Last 24 Hours (Table) 01/27/18 10:50 Blood Culture - Preliminary Blood No Growth after 72 hours Assessment and Plan Assessment: Severe triple-vessel coronary disease Anticipated bypass grafting 01/31/2018 Acute non-ST segment elevation myocardial infarction Severe ischemic cardiomyopathy Systolic congestive heart failure Benign essential hypertension Hyperlipidemia Extrinsic ALLERGIC alveolitis Mild COPD Previous tobacco history Plan: Plan dated 01/31/2018 The patient after surgery for mechanical ventilation management. The patient otherwise is doing well. She likely will do well. Additional recommendations are made. The patient will be placed on updrafts after surgery. Typically will use DuoNeb every 4 hours around the clock. We'll continue to follow. Time with Patient: Less than 30
[2018-01-31] MEDS ORDERED: SODIUM CHLORIDE 0.9% 500 ML with HEPARIN SODIUM,PORCINE 5,000 UNIT IV ONE ×2 (09:47)
[2018-01-31] MEDS ORDERED: PAPAVERINE 360 MG in SODIUM CHLORIDE 0.9% 90 ML IV ONE (09:47)
[2018-01-31] MEDS ORDERED: ALBUMIN HUMAN 5% 250 ML in EMPTY BAG 1 BAG IVPB PRN (14:43)
[2018-01-31] MEDS ORDERED: BENZOCAINE/MENTHOL LOZENG 1 EACH LOZENGE MUCOUS MEM PRN (14:43)
[2018-01-31] MEDS ORDERED: METOCLOPRAMIDE 5 MG/ML 2 ML VIAL IVP PRN (14:43)
[2018-01-31] MEDS ORDERED: ONDANSETRON 4 MG/2 ML VIAL IVP PRN (14:43)
[2018-01-31] MEDS ORDERED: Phosphorus Replacement Protoco 1 EACH MISC MISCELLANE PRN (14:43)
[2018-01-31] MEDS ORDERED: Potassium Replacement Protocol 1 EACH MISC MISCELLANE PRN (14:43)
[2018-01-31] MEDS ORDERED: Magnesium Replacement Protocol 1 EACH MISC MISCELLANE PRN (14:43)
[2018-01-31] MEDS: MUPIROCIN 2% OINT 22 GM TUBE TOPICAL SCH (14:49)
[2018-01-31] MEDS: PANTOPRAZOLE 40 MG TABLET PO SCH (14:49)
[2018-01-31] MEDS: SPIRONOLACTONE 25 MG TAB PO SCH (14:49)
[2018-01-31] MEDS: HEPARIN SOD,PORK IN 0.45% NACL 25,000 UNIT in 0.45% NACL 1 500ML.BAG IV SCH (14:49)
[2018-01-31] MEDS: FUROSEMIDE 10 MG/ML 4 ML VIAL IV SCH (14:49)
[2018-01-31] MEDS ORDERED: NOREPINEPHRINE 4 MG in SODIUM CHLORIDE 0.9% 250 ML IV SCH (15:00)
[2018-01-31] MEDS ORDERED: NITROGLYCERIN-D5W PMX 50 MG in DEXTROSE/WATER 1 250ML.BAG IV SCH (15:00)
[2018-01-31] MEDS ORDERED: MILRINONE-D5W PMX 20 MG in DEXTROSE/WATER 1 100ML.BAG IV SCH (15:00)
[2018-01-31] MEDS ORDERED: INSULIN REGULAR 100 UNIT in SODIUM CHLORIDE 0.9% 100 ML IV SCH (15:00)
[2018-01-31 15:15] LABS: Glucose,Whole Blood 115 mg/dL (75-99)
[2018-01-31 15:22] LABS: Basophils % (A) 0 %; Eosinophils # (A) 0.1 k/uL (0-0.7); Eosinophils % (A) 1 %; HCT 23.6 % (34.0-46.0); Hypochromasia Slight; Lymphocytes # (A) 0.9 k/uL (1.0-4.8); Lymphocytes % (A) 5 %; MCH 30.3 pg (25.0-35.0); MCHC 31.8 g/dL (31.0-37.0); Mean Platelet Volume 8.9; Monocytes # (A) 0.8 k/uL (0-1.0); Monocytes % (A) 5 %; Neutrophils # (A) 14.9 k/uL (1.3-7.7); Neutrophils % (A) 89 %; RBC 2.49 m/uL (3.80-5.40); WBC 16.7 k/uL (3.8-10.6)
[2018-01-31 15:28] LABS: HGB 7.5 gm/dL (11.4-16.0); INR 1.5 (<1.2); Partial Thromboplastin Time 29.8 sec (22.0-30.0); Platelet Count 116 k/uL (150-450); Prothrombin Time 14.1 sec (9.0-12.0)
--- NOTE | 2018-01-31 15:35 | XR ---
EXAMINATION TYPE: XR chest 1V portable DATE OF EXAM: 01/31/2018 COMPARISON: 01/30/2018 HISTORY: Postop cardiac surgery TECHNIQUE: Single frontal view of the chest is obtained. FINDINGS: ET tube is approximately 3.8 cm above pete. Chest tubes, mediastinal drain and epicardia l lead noted. NG tube seen with the tip at the level the GE junction. [place]-Rc catheter noted overlying the proxim al pulmonary outflow tract. Cardiomegaly and postsurgical change with no sizable pneumothorax. Underlying COPD suspected. IMPRESSION: 1. Postoperative changes 2. Subsegmental changes left lung base likely the basis of postoperative atelectasis 3. NG tube seen with the tip near the GE junction and could be advanced. Correlate clinically.
[2018-01-31 15:38] LABS: ABG Base Excess -3.7 mmol/L; ABG HCO3 24 mmol/L (21-25); ABG Oxygen Saturation 94.3 % (94-97); ABG PCO2 54 mmHg (35-45); ABG PH 7.25 (7.35-7.45); ABG PO2 74 mmHg (83-108); ABG TCO2 25 mmol/L (19-24)
--- NOTE | 2018-01-31 15:45 | OP ---
OPERATIVE REPORT DATE OF THE SURGERY: 01/31/2018. SURGEON: Dr. Amanda Mendez. MORGUE KEEPER: Hernán Cotto NP. PREOPERATIVE DIAGNOSES: Severe ischemic cardiomyopathy, left main disease, chronically occluded RCA, Non ST elevation myocardial infarction, congestive heart failure, hypertension, hyperlipidemia, mild mitral valve regurgitation. POSTOPERATIVE DIAGNOSES: 1. Severe ischemic cardiomyopathy, left main disease, chronically occluded RCA, Non-ST elevation myocardial infarction, congestive heart failure, hypertension, hyperlipidemia, mild mitral valve regurgitation. 2. Evidence of remote old inferior wall myocardial infarction. PROCEDURE: 1. Coronary artery bypass grafting x4 using the left internal mammary artery to the mid left anterior descending artery, reverse saphenous vein graft from the aorta to the diagonal artery, reverse saphenous vein graft from the aorta to the 1st obtuse marginal artery, reverse saphenous vein graft from the aorta to the posterior descending artery. 2. Endoscopic harvesting of the right greater saphenous vein. 3. Intraoperative transesophageal echocardiogram and epiaortic scanning. 4. Intraoperative graft flow measurements using the MtoV-Stim system. INDICATION FOR SURGERY: Patient is a 72-year-old lady admitted with a picture of congestive heart failure with some elevation of her troponin. 2D echo showed moderate to severe left ventricular dysfunction. Cardiac catheterization followed and that showed a chronically occluded right coronary artery and severe left main disease. The patient was treated optimized over around 4 days and has been taken today for coronary artery bypass grafting. She had mild mitral valve regurgitation on 2D echo. The STS risk has been discussed with her and her family and she is a lady with moderate risks for revascularization. They understood the risks and agreed to proceed. PROCEDURE: Patient in supine position in the preoperative holding area, a right internal jugular [place]-Rc catheter was inserted. A right radial arterial line was placed. Subsequently, she was brought to the operating room, and the PA pressure was 54/ 20. Cardiac index was 2.0. Subsequently, general endotracheal anesthesia was induced uneventfully. [place] catheter was inserted. She received 2 g of cefazolin intravenously. The chest, abdomen and both lower extremities were prepped and draped using ChloraPrep. Ioban was used to cover the skin. Transesophageal echocardiogram confirmed the preoperative finding of moderate to severe left ventricular dysfunction with essentially inferior and posterior akinesia. She had mild to moderate mitral valve regurgitation at most. A midline sternotomy was performed and the bone was osteoporotic. No bone wax was used. The left hemisternum was elevated and the left internal mammary artery was harvested in a semi-skeletonized fashion. The left pleura was intentionally opened in this process and was drained with a 28-Panamanian chest tube. I also intentionally opened the right pleura and drained it with another 28-Panamanian chest tube. In the same setting, the right greater saphenous vein was harvested endoscopically from groin to above ankle level after administration of 2500 units of heparin. The leg incisions were closed over a drain. The vein appeared to be of excellent quality at the level of the groin to below the knee, but then was of reasonable quality, but on slightly small caliber around 3 mm for the lower leg. Mediastinal fat was transected between 2 ties and epiaortic scanning revealed no protruding atheroma in the ascending aorta. There was an anterior calcified plaque in the proximal arch. The pericardium was opened in an inverted T-fashion and a pericardial cradle was created. Findings included a short posterior aorta and an enlarged heart. We could palpate the anterior plaque by the origin of the innominate artery. The rest of the ascending aorta felt soft. After systemic heparinization and placement of respective pledgeted pursestrings , the inner side of the proximal arch was cannulated with a 21-[place]amanian angled soft flow cannula. The right atrial appendage was cannulated with a dual stage 29/37 venous cannula. Upon opening the RA appendage, we found small amount of clot that looked sub- acute and that was cleaned before cannulation. Antegrade as well as retrograde cardioplegia catheter with side vents were used. The left mammary artery was clipped distally and transected, had an excellent pulsatile flow in it and was around 1.5 mm in diameter, thin-walled. Cardiopulmonary bypass was initiated and with the heart empty and warm, we looked at the targets. The left anterior descending artery was an intramyocardial vessel emerged very distally and was very small at that level. The diagonal artery branching were also small, but then I followed them to the main diagonal artery which was very proximal where will be the site for bypass. The 1st obtuse marginal artery was small but was definitely bypassable. There was a 2nd obtuse marginal artery that was much smaller non bypassable. We inspected the inferior wall, which showed evidence of remote old inferior wall myocardial infarction. The posterior descending artery while diseased will be the site of bypass.RCA felt hard throughout its course. During aortic clamping, myocardial protection was achieved with initial dose of 700 mL of antegrade cold blood cardioplegia followed by 600 mL of retrograde cold blood cardioplegia. All subsequent doses were given retrograde as well as through the initially constructed vein graft to the posterior descending artery for optimal right ventricular protection. The 1st distal anastomosis was between a 3 mm segment of saphenous vein from the lower leg and the 1.5 mm diseased posterior descending artery using Prolene 7-0 in continuous fashion. The 2nd distal anastomosis was between a better segment of vein of 4 mm in diameter and a 1.25 mm obtuse marginal artery, which was thin-walled. I had to put a 1 mm shunt to better define the edges and the anastomosis was completed using Prolene 7-0 in continuous fashion. Evidently, the shunt was removed before completing the anastomosis. The 3rd distal anastomosis was between another segment of reverse saphenous vein graft of good quality and the 1.5 mm diagonal artery proximally, which had a posterior calcified plaque in it using Prolene 7-0 in a continuous fashion. At this point, we were fortunate to find the left anterior descending artery proximally in its mid aspect deep in the epicardial fat. It was thin-walled where it was eventually bypassed around 1.5 mm in diameter. The left internal mammary artery was anastomosed to the left anterior descending artery at that level using Prolene 7-0 in continuous fashion. That anastomosis appeared to be hemostatic. Satisfied with the distal anastomosis, attention was moved to performing the proximal anastomosis. Rewarming was started. Three buttons of 4 mm each were punched out of the ascending aorta and the 3 proximal anastomosis completed using Prolene 6 0 in continuous fashion. The patient was half loaded with Primacor and was given lidocaine and magnesium before unclamping the aorta. She regained spontaneous sinus rhythm. All anastomosis appeared to be hemostatic. Two monopolar atrial pacing wires were affixed, 1 to the pursestring of the retrograde and other 1 to the pursestring of the venous cannulation. One bipolar ventricular pacing wire was driven via the inferior aspect of the right ventricle. After a period of reperfusion, we were able to wean off cardiopulmonary bypass on 0.2 mcg per kg per minute of Primacor. The index was excellent at 3.7 l/min/m2. The FLETCHER showed improved left ventricular function and mild mitral valve regurgitation. Inferior wall remained severely hypokinetic/akinetic At this point, we proceeded at measuring graft flows and all parameters were excellent. The flow into the left internal mammary artery to the left anterior descending artery was 38 mL/minute, pulsatility index of 3.4, diastolic filling of 79%. The flow into the vein graft to the posterior descending artery was 91 mL/minute, pulsatility index of 1.5, diastolic filling of 60%. The flow into the vein graft going to the diagonal artery was 78 mL/minute, pulsatility index of 1.3 and diastolic fraction of 68% . The flow into the vein graft going to the 1st obtuse marginal artery was 64 mL/ minute, pulsatility index of 3.3 and diastolic filling of 70%. Again all those parameters were excellent. With that protamine test was done, then full dose protamine was given. Decannulation followed. The venous cannulation site was reinforced with Prolene 4-0 running. A groove was made in the left pleuro-pericardial fat to accommodate the mammary artery medial to the lung and away from the posterior sternal table. One 32F substernal chest tube was placed. Pericardial fat was loosely approximated over the heart and aorta. After ensuring adequate hemostasis and hemodynamic and after correct sponge, instrument, and needle count, the sternum was approximated using 5 figure-of- eight PIONNEAR cables after interposing fibrillar between the sternal edges. Thorough irrigation with cefazolin followed. The rest of the closure proceeded in layers. Skin glue was applied. Patient did not receive any blood bank product but received 540 mL of Cell Saver blood. She was transferred to the ICU on 0.2 mics per kg per minute of Primacor, low dose Levophed, normal sinus rhythm at 82, PA pressure of 29/19 and mean arterial pressure of 60. MMODL / IJN: [id number] / [facility] [place] [facility]
[2018-01-31 15:47] LABS: Albumin 2.6 g/dL (3.5-5.0); Calcium 7.6 mg/dL (8.4-10.2); Magnesium 3.1 mg/dL (1.6-2.3); Potassium 4.6 mmol/L (3.5-5.1); Total Bilirubin 0.9 mg/dL (0.2-1.3); Total Protein 4.2 g/dL (6.3-8.2)
[2018-01-31] MEDS ORDERED: CALCIUM GLUCONATE 2,000 MG in SODIUM CHLORIDE 0.9% 100 ML IVPB PRN (16:00)
[2018-01-31] MEDS: PROPOFOL 1,000 MG in EMPTY BAG 1 BAG IV SCH ×2 (16:05→21:44)
[2018-01-31 16:10] LABS: Glucose,Whole Blood 107 mg/dL (75-99)
[2018-01-31] MEDS: IPRATROPIUM-ALBUTEROL 3 ML NEB INHALATION SCH ×2 (16:14→19:09)
[2018-01-31] MEDS: ACETAMINOPHEN IV (For NPO) 1,000 MG in EMPTY BAG 1 BAG IVPB SCH ×2 (16:22→23:56)
[2018-01-31 16:52] LABS: ABG Base Excess -3.4 mmol/L; ABG HCO3 24 mmol/L (21-25); ABG PCO2 52 mmHg (35-45); ABG PH 7.27 (7.35-7.45); ABG PO2 81 mmHg (83-108); ABG TCO2 25 mmol/L (19-24)
[2018-01-31] MEDS: CLEVIDIPINE BUTYRATE 25 MG in EMPTY BAG 1 BAG IV SCH ×3 (16:52→22:12)
[2018-01-31] MEDS: LACTATED RINGERS 1,000 ML IV SCH (16:52)
[2018-01-31 16:53] LABS: ABG Oxygen Saturation 96.3 % (94-97)
[2018-01-31] MEDS: ceFAZolin IN SWFI 2 GM/20 ML SYRINGE IVP SCH ×2 (16:58→23:56)
[2018-01-31 17:07] LABS: Glucose,Whole Blood 122 mg/dL (75-99)
[2018-01-31 18:02] LABS: Glucose,Whole Blood 124 mg/dL (75-99)
[2018-01-31 18:33] LABS: Basophils % (A) 0 %; Eosinophils # (A) 0.1 k/uL (0-0.7); Eosinophils % (A) 1 %; HCT 22.7 % (34.0-46.0); HGB 7.3 gm/dL (11.4-16.0); Hypochromasia Slight; Lymphocytes # (A) 0.4 k/uL (1.0-4.8); Lymphocytes % (A) 3 %; MCH 30.4 pg (25.0-35.0); MCHC 32.1 g/dL (31.0-37.0); MCV 94.7 fL (80.0-100.0); Mean Platelet Volume 7.8; Monocytes # (A) 0.6 k/uL (0-1.0); Monocytes % (A) 6 %; Neutrophils # (A) 10.1 k/uL (1.3-7.7); Neutrophils % (A) 90 %; Platelet Count 103 k/uL (150-450); RBC 2.39 m/uL (3.80-5.40); WBC 11.3 k/uL (3.8-10.6)
[2018-01-31 18:33] LABS: ABG HCO3 22 mmol/L (21-25); ABG Oxygen Saturation 98.2 % (94-97); ABG PCO2 43 mmHg (35-45); ABG PH 7.32 (7.35-7.45); ABG PO2 96 mmHg (83-108); ABG TCO2 23 mmol/L (19-24)
[2018-01-31 18:58] LABS: Glucose,Whole Blood 163 mg/dL (75-99)
[2018-01-31 19:58] LABS: Glucose,Whole Blood 153 mg/dL (75-99)
[2018-01-31 20:53] LABS: Glucose,Whole Blood 154 mg/dL (75-99)
[2018-01-31 21:01] LABS: Basophils % (A) 0 %; Eosinophils % (A) 0 %; HCT 22.9 % (34.0-46.0); HGB 7.4 gm/dL (11.4-16.0); Hypochromasia Slight; Lymphocytes # (A) 0.4 k/uL (1.0-4.8); Lymphocytes % (A) 3 %; MCH 30.6 pg (25.0-35.0); MCHC 32.4 g/dL (31.0-37.0); MCV 94.7 fL (80.0-100.0); Mean Platelet Volume 8.6; Monocytes # (A) 0.5 k/uL (0-1.0); Monocytes % (A) 4 %; Neutrophils # (A) 11.2 k/uL (1.3-7.7); Neutrophils % (A) 92 %; Platelet Count 108 k/uL (150-450); RBC 2.42 m/uL (3.80-5.40); RDW 15.1 % (11.5-15.5); WBC 12.1 k/uL (3.8-10.6)
[2018-01-31 21:06] LABS: Ionized Calcium 4.9 mg/dL (4.5-5.3)
[2018-01-31 21:12] LABS: Calcium 8.2 mg/dL (8.4-10.2); Potassium 4.4 mmol/L (3.5-5.1)
[2018-01-31] MEDS: MUPIROCIN 2% OINT 22 GM TUBE NASAL SCH (21:45)
[2018-01-31 22:13] LABS: Glucose,Whole Blood 155 mg/dL (75-99)
[2018-01-31 23:22] LABS: Glucose,Whole Blood 142 mg/dL (75-99)
[2018-01-31 23:22] LABS: Glucose,Whole Blood 64 mg/dL (75-99)
[2018-02-01 00:11] LABS: Glucose,Whole Blood 144 mg/dL (75-99)
[2018-02-01] MEDS: CRESTOR 20 MG PO SCH ×2 (00:12→20:03)
[2018-02-01] MEDS: HEPARIN SODIUM,PORCINE 5,000 UNIT/ML 1 ML VIAL SQ SCH ×4 (00:13→23:32)
[2018-02-01] MEDS: CLEVIDIPINE BUTYRATE 25 MG in EMPTY BAG 1 BAG IV SCH ×2 (00:43→04:40)
[2018-02-01] MEDS: IPRATROPIUM-ALBUTEROL 3 ML NEB INHALATION SCH ×9 (00:59→20:06)
[2018-02-01 01:17] LABS: Glucose,Whole Blood 125 mg/dL (75-99)
[2018-02-01 02:28] LABS: Glucose,Whole Blood 126 mg/dL (75-99)
[2018-02-01 03:20] LABS: Glucose,Whole Blood 109 mg/dL (75-99)
[2018-02-01 03:47] LABS: Basophils % (A) 0 %; Eosinophils % (A) 0 %; HCT 22.3 % (34.0-46.0); HGB 7.1 gm/dL (11.4-16.0); Lymphocytes # (A) 0.4 k/uL (1.0-4.8); Lymphocytes % (A) 4 %; MCV 93.9 fL (80.0-100.0); Mean Platelet Volume 7.9; Monocytes # (A) 0.3 k/uL (0-1.0); Monocytes % (A) 3 %; Neutrophils # (A) 9.3 k/uL (1.3-7.7); Neutrophils % (A) 92 %; Platelet Count 115 k/uL (150-450); RBC 2.37 m/uL (3.80-5.40); RDW 15.2 % (11.5-15.5); WBC 10.1 k/uL (3.8-10.6)
[2018-02-01 03:56] LABS: INR 1.2 (<1.2); Prothrombin Time 11.8 sec (9.0-12.0)
[2018-02-01 03:57] LABS: Partial Thromboplastin Time 23.7 sec (22.0-30.0)
[2018-02-01 03:59] LABS: Glucose,Whole Blood 96 mg/dL (75-99)
[2018-02-01 04:08] LABS: Albumin 3.2 g/dL (3.5-5.0); Calcium 8.2 mg/dL (8.4-10.2); Magnesium 2.8 mg/dL (1.6-2.3); Potassium 4.6 mmol/L (3.5-5.1); Total Bilirubin 0.4 mg/dL (0.2-1.3); Total Protein 4.8 g/dL (6.3-8.2)
[2018-02-01 04:51] LABS: Glucose,Whole Blood 120 mg/dL (75-99)
[2018-02-01 05:00] LABS: ABG Base Excess -3.7 mmol/L; ABG HCO3 22 mmol/L (21-25); ABG Oxygen Saturation 99.7 % (94-97); ABG PCO2 40 mmHg (35-45); ABG PH 7.35 (7.35-7.45); ABG PO2 85 mmHg (83-108); ABG TCO2 23 mmol/L (19-24)
[2018-02-01] MEDS: ACETAMINOPHEN IV (For NPO) 1,000 MG in EMPTY BAG 1 BAG IVPB SCH ×3 (05:07→17:44)
[2018-02-01] MEDS: PROPOFOL 1,000 MG in EMPTY BAG 1 BAG IV SCH (05:27)
[2018-02-01 06:04] LABS: Glucose,Whole Blood 146 mg/dL (75-99)
[2018-02-01 06:55] LABS: Glucose,Whole Blood 149 mg/dL (75-99)
[2018-02-01] MEDS: ceFAZolin IN SWFI 2 GM/20 ML SYRINGE IVP SCH (08:07)
[2018-02-01] MEDS: PANTOPRAZOLE 40 MG/10 ML VIAL IVP SCH (08:07)
[2018-02-01] MEDS: ASPIRIN 325 MG TAB PO SCH (08:07)
[2018-02-01] MEDS: CLOPIDOGREL 75 MG TAB PO SCH (08:07)
[2018-02-01] MEDS: MUPIROCIN 2% OINT 22 GM TUBE NASAL SCH ×2 (08:12→20:03)
[2018-02-01 08:17] LABS: Glucose,Whole Blood 152 mg/dL (75-99)
[2018-02-01] MEDS ORDERED: FUROSEMIDE 10 MG/ML 2 ML VIAL IV ONE (08:22)
--- NOTE | 2018-02-01 08:25 | XR ---
EXAMINATION TYPE: XR chest 1V portable DATE OF EXAM: 02/01/2018 COMPARISON: Prior chest x-ray 01/31/2018 HISTORY: Postop cardiac surgery and intubated TECHNIQUE: Single frontal view of the chest is obtained. FINDINGS: Endotracheal tube and NG tube, median sternal drain, right jugular central venous sheath a nd coaxial [place]-Rc catheter, bilateral chest tubes are present and overlying appropriate positions. No evident pneumothorax. Patient is post median sternotomy and the heart remains enlarged. Patchy ba silar density is present, the interstitium and pulmonary vascularity mildly prominent. IMPRESSION: There may be a component of volume overload, pulmonary venous hypertension and interstit ial edema. Follow-up recommended. Probable basilar atelectasis versus edema, pneumonia felt to be les s likely.
[2018-02-01] MEDS ORDERED: METOPROLOL TARTRATE 12.5 MG TAB PO SCH (09:00)
--- NOTE | 2018-02-01 09:07 | P.PN ---
Subjective Progress Note Date: 02/01/18 Principal diagnosis: Bypass grafting Progress note dated 01/31/2018 This is a 72-year-old female with multiple medical problems including hypertension hyperlipidemia extrinsic ALLERGIC alveolitis as well as coronary artery disease. The patient's going to the operating room today for a bypass grafting. She's been seen by my partner for the last couple of days. She did have a CT angiogram that was negative for pulmonary embolism. When she was seen yesterday, she was doing well and she was asymptomatic. No chest pain no shortness of breath and difficulty breathing. No coughing or wheezing. Labs were in order. This morning, prior to surgery the patient still doing well. No major issues or problems. 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 Progress note dated 02/01/2018 This is a 72-year-old female who is postop day #1 status post four-vessel bypass grafting. The patient's currently on the mechanical ventilator. Her current vent settings are the assist control mode rate of 24, tidal volume of 400 she is on a FiO2 50% with a PEEP of 5. Arterial blood gases show a PaO2 of 85 a PaCO2 40 and a pH of 7.35. The patient is currently on propofol at 20 mics per kilogram per minute, Primacor at 0.2 mics per kilogram per minute, insulin drip at 2 units per hour, and Cleviprex at 2 mg an hour. The patient's IV is lactated Ringer's at 50 mL an hour. According to cardiothoracic assistant case manager , the patient can be weaned at this time. Chest x-ray show some mild fluid overload. The patient otherwise is stable. Even on a small amount of propofol , her mental status is reasonable. We'll wean that off and start the process. She has a history of non-ST segment elevation myocardial infarction, severe triple-vessel coronary artery disease, ischemic cardiomyopathy, systolic heart failure, hypertension, hyperlipidemia, extrinsic ALLERGIC alveolitis and COPD from previous heavy tobacco use. Objective - Vital Signs Vital signs: Vital Signs Temp 98.6 F 01/31/18 06:16 Pulse 91 02/01/18 08:19 Resp 26 H 02/01/18 08:00 BP 110/51 02/01/18 08:00 Pulse Ox 96 02/01/18 08:00 Intake & Output 01/31/18 02/01/18 02/01/18 18:59 06:59 18:59 Intake Total 734.671 983.128 279.108 Output Total 2175 787 102 Balance -1440.329 196.128 177.108 Weight 81.2 kg Intake: IV 703 688 138 Albumin Human 5% 500 ml 500 In Empty Bag 1 bag @ 250 mls/hr IVPB ONCE PRN Rx#: [id number] CI/CO 60 20 Lactated Ringers 1,000 ml 200 550 100 @ 20 mls/hr IV .Q24H ERIN Rx#:[id number] pressure bag 78 18 Intake, IV Titration 31.671 295.128 141.108 Amount Clevidipine Butyrate 25 130.2 mg In Empty Bag 1 bag @ 1 MG/HR 2 mls/hr IV .Q24H ERIN Rx#:[id number] Insulin Regular 100 unit 0.892 32.558 2.833 In Sodium Chloride 0.9% 100 ml @ Per Protocol IV .Q0M ERIN Rx#:[id number] Milrinone-D5w Pmx 20 mg 87.692 In Dextrose/Water 1 100ml .bag @ Per Protocol IV . Q0M ERIN Rx#:[id number] Propofol 1,000 mg In 30.779 132.370 50.583 Empty Bag 1 bag @ Titrate IV .Q0M ERIN Rx#: [id number] Output: Chest Tube Drainage 80 162 7 Chest Tube Mediastinal 60 112 6 Left Pleural 15 33 0 Right Pleural 5 17 1 Drainage 80 20 Right Calf 80 20 Urine 595 545 75 Estimated Blood Loss 1500 Other: Voiding Method Indwelling Catheter Indwelling Catheter # Bowel Movements 0 ABP, PAP, CO, CI - Last Documented Arterial Blood Pressure 129/52 Pulmonary Artery Pressure 39/24 Cardiac Output 5.7 Cardiac Index 3.1 - Exam No acute distress, currently sedated with an orally placed endotracheal tube and NG tube. HEENT examination is grossly unremarkable. Mucous membranes are moist. Neck supple. Full range of motion. No adenopathy thyromegaly or neck vein distention. Cardiovascular examination reveals regular rhythm rate. S1-S2 normal. No S3 or S4. No discernible murmur noted. Lungs reveal diffuse bilateral rhonchi. Breath sounds are equal bilaterally. No wheezes. No crackles. Abdomen soft bowel sounds are heard. No masses or tenderness. Extremities are intact. No cyanosis clubbing or edema. Skin is without rash or lesion. Neurologic examination could not be adequately assessed as the patient's currently sedated. - Labs CBC & Chem 7: 02/01/18 03:10 02/01/18 03:10 Labs: Abnormal Lab Results - Last 24 Hours (Table) 01/30/18 01/31/18 01/31/18 Range/Units 04:37 15:13 15:15 WBC 16.7 H (3.8-10.6) k/uL RBC 2.49 L (3.80-5.40) m/uL Hgb 7.5 L D (11.4-16.0) gm/dL Hct 23.6 L (34.0-46.0) % Plt Count 116 L D (150-450) k/uL Neutrophils # 14.9 H (1.3-7.7) k/uL Lymphocytes # 0.9 L (1.0-4.8) k/uL PT (9.0-12.0) sec INR (<1.2) ABG pH (7.35-7.45) ABG pCO2 (35-45) mmHg ABG pO2 (83-108) mmHg ABG Total CO2 (19-24) mmol/L ABG O2 Saturation (94-97) % Chloride (98-107) mmol/L BUN (7-17) mg/dL Glucose (74-99) mg/dL POC Glucose (mg/dL) 115 H (75-99) mg/dL Calcium (8.4-10.2) mg/dL Magnesium (1.6-2.3) mg/dL Alkaline Phosphatase (38-126) U/L Total Protein (6.3-8.2) g/dL Albumin (3.5-5.0) g/dL Crossmatch See Detail 01/31/18 01/31/18 01/31/18 Range/Units 15:15 15:15 15:36 WBC (3.8-10.6) k/uL RBC (3.80-5.40) m/uL Hgb (11.4-16.0) gm/dL Hct (34.0-46.0) % Plt Count (150-450) k/uL Neutrophils # (1.3-7.7) k/uL Lymphocytes # (1.0-4.8) k/uL PT 14.1 H (9.0-12.0) sec INR 1.5 H (<1.2) ABG pH 7.25 L (7.35-7.45) ABG pCO2 54 H (35-45) mmHg ABG pO2 74 L (83-108) mmHg ABG Total CO2 25 H (19-24) mmol/L ABG O2 Saturation (94-97) % Chloride 108 H (98-107) mmol/L BUN 19 H (7-17) mg/dL Glucose 104 H (74-99) mg/dL POC Glucose (mg/dL) (75-99) mg/dL Calcium 7.6 L (8.4-10.2) mg/dL Magnesium 3.1 H (1.6-2.3) mg/dL Alkaline Phosphatase 21 L (38-126) U/L Total Protein 4.2 L (6.3-8.2) g/dL Albumin 2.6 L (3.5-5.0) g/dL Crossmatch 01/31/18 01/31/18 01/31/18 Range/Units 16:09 16:15 17:06 WBC (3.8-10.6) k/uL RBC (3.80-5.40) m/uL Hgb (11.4-16.0) gm/dL Hct (34.0-46.0) % Plt Count (150-450) k/uL Neutrophils # (1.3-7.7) k/uL Lymphocytes # (1.0-4.8) k/uL PT (9.0-12.0) sec INR (<1.2) ABG pH 7.27 L (7.35-7.45) ABG pCO2 52 H (35-45) mmHg ABG pO2 81 L (83-108) mmHg ABG Total CO2 25 H (19-24) mmol/L ABG O2 Saturation (94-97) % Chloride (98-107) mmol/L BUN (7-17) mg/dL Glucose (74-99) mg/dL POC Glucose (mg/dL) 107 H 122 H (75-99) mg/dL Calcium (8.4-10.2) mg/dL Magnesium (1.6-2.3) mg/dL Alkaline Phosphatase (38-126) U/L Total Protein (6.3-8.2) g/dL Albumin (3.5-5.0) g/dL Crossmatch 01/31/18 01/31/18 01/31/18 Range/Units 18:01 18:27 18:28 WBC 11.3 H (3.8-10.6) k/uL RBC 2.39 L (3.80-5.40) m/uL Hgb 7.3 L (11.4-16.0) gm/dL Hct 22.7 L (34.0-46.0) % Plt Count 103 L (150-450) k/uL Neutrophils # 10.1 H (1.3-7.7) k/uL Lymphocytes # 0.4 L (1.0-4.8) k/uL PT (9.0-12.0) sec INR (<1.2) ABG pH 7.32 L (7.35-7.45) ABG pCO2 (35-45) mmHg ABG pO2 (83-108) mmHg ABG Total CO2 (19-24) mmol/L ABG O2 Saturation 98.2 H (94-97) % Chloride (98-107) mmol/L BUN (7-17) mg/dL Glucose (74-99) mg/dL POC Glucose (mg/dL) 124 H (75-99) mg/dL Calcium (8.4-10.2) mg/dL Magnesium (1.6-2.3) mg/dL Alkaline Phosphatase (38-126) U/L Total Protein (6.3-8.2) g/dL Albumin (3.5-5.0) g/dL Crossmatch 01/31/18 01/31/18 01/31/18 Range/Units 18:54 19:57 20:29 WBC 12.1 H (3.8-10.6) k/uL RBC 2.42 L (3.80-5.40) m/uL Hgb 7.4 L (11.4-16.0) gm/dL Hct 22.9 L (34.0-46.0) % Plt Count 108 L (150-450) k/uL Neutrophils # 11.2 H (1.3-7.7) k/uL Lymphocytes # 0.4 L (1.0-4.8) k/uL PT (9.0-12.0) sec INR (<1.2) ABG pH (7.35-7.45) ABG pCO2 (35-45) mmHg ABG pO2 (83-108) mmHg ABG Total CO2 (19-24) mmol/L ABG O2 Saturation (94-97) % Chloride (98-107) mmol/L BUN (7-17) mg/dL Glucose (74-99) mg/dL POC Glucose (mg/dL) 163 H 153 H (75-99) mg/dL Calcium (8.4-10.2) mg/dL Magnesium (1.6-2.3) mg/dL Alkaline Phosphatase (38-126) U/L Total Protein (6.3-8.2) g/dL Albumin (3.5-5.0) g/dL Crossmatch 01/31/18 01/31/18 01/31/18 Range/Units 20:45 20:51 22:11 WBC (3.8-10.6) k/uL RBC (3.80-5.40) m/uL Hgb (11.4-16.0) gm/dL Hct (34.0-46.0) % Plt Count (150-450) k/uL Neutrophils # (1.3-7.7) k/uL Lymphocytes # (1.0-4.8) k/uL PT (9.0-12.0) sec INR (<1.2) ABG pH (7.35-7.45) ABG pCO2 (35-45) mmHg ABG pO2 (83-108) mmHg ABG Total CO2 (19-24) mmol/L ABG O2 Saturation (94-97) % Chloride 109 H (98-107) mmol/L BUN 19 H (7-17) mg/dL Glucose 141 H (74-99) mg/dL POC Glucose (mg/dL) 154 H 155 H (75-99) mg/dL Calcium 8.2 L (8.4-10.2) mg/dL Magnesium (1.6-2.3) mg/dL Alkaline Phosphatase (38-126) U/L Total Protein (6.3-8.2) g/dL Albumin (3.5-5.0) g/dL Crossmatch 01/31/18 01/31/18 02/01/18 Range/Units 23:17 23:19 00:09 WBC (3.8-10.6) k/uL RBC (3.80-5.40) m/uL Hgb (11.4-16.0) gm/dL Hct (34.0-46.0) % Plt Count (150-450) k/uL Neutrophils # (1.3-7.7) k/uL Lymphocytes # (1.0-4.8) k/uL PT (9.0-12.0) sec INR (<1.2) ABG pH (7.35-7.45) ABG pCO2 (35-45) mmHg ABG pO2 (83-108) mmHg ABG Total CO2 (19-24) mmol/L ABG O2 Saturation (94-97) % Chloride (98-107) mmol/L BUN (7-17) mg/dL Glucose (74-99) mg/dL POC Glucose (mg/dL) 64 L 142 H 144 H (75-99) mg/dL Calcium (8.4-10.2) mg/dL Magnesium (1.6-2.3) mg/dL Alkaline Phosphatase (38-126) U/L Total Protein (6.3-8.2) g/dL Albumin (3.5-5.0) g/dL Crossmatch 02/01/18 02/01/18 02/01/18 Range/Units 01:16 02:26 03:10 WBC (3.8-10.6) k/uL RBC 2.37 L (3.80-5.40) m/uL Hgb 7.1 L (11.4-16.0) gm/dL Hct 22.3 L (34.0-46.0) % Plt Count 115 L (150-450) k/uL Neutrophils # 9.3 H (1.3-7.7) k/uL Lymphocytes # 0.4 L (1.0-4.8) k/uL PT (9.0-12.0) sec INR (<1.2) ABG pH (7.35-7.45) ABG pCO2 (35-45) mmHg ABG pO2 (83-108) mmHg ABG Total CO2 (19-24) mmol/L ABG O2 Saturation (94-97) % Chloride (98-107) mmol/L BUN (7-17) mg/dL Glucose (74-99) mg/dL POC Glucose (mg/dL) 125 H 126 H (75-99) mg/dL Calcium (8.4-10.2) mg/dL Magnesium (1.6-2.3) mg/dL Alkaline Phosphatase (38-126) U/L Total Protein (6.3-8.2) g/dL Albumin (3.5-5.0) g/dL Crossmatch 02/01/18 02/01/18 02/01/18 Range/Units 03:10 03:10 03:18 WBC (3.8-10.6) k/uL RBC (3.80-5.40) m/uL Hgb (11.4-16.0) gm/dL Hct (34.0-46.0) % Plt Count (150-450) k/uL Neutrophils # (1.3-7.7) k/uL Lymphocytes # (1.0-4.8) k/uL PT (9.0-12.0) sec INR 1.2 H (<1.2) ABG pH (7.35-7.45) ABG pCO2 (35-45) mmHg ABG pO2 (83-108) mmHg ABG Total CO2 (19-24) mmol/L ABG O2 Saturation (94-97) % Chloride 108 H (98-107) mmol/L BUN 20 H (7-17) mg/dL Glucose (74-99) mg/dL POC Glucose (mg/dL) 109 H (75-99) mg/dL Calcium 8.2 L (8.4-10.2) mg/dL Magnesium 2.8 H (1.6-2.3) mg/dL Alkaline Phosphatase 26 L (38-126) U/L Total Protein 4.8 L (6.3-8.2) g/dL Albumin 3.2 L (3.5-5.0) g/dL Crossmatch 02/01/18 02/01/18 02/01/18 Range/Units 04:50 04:55 06:04 WBC (3.8-10.6) k/uL RBC (3.80-5.40) m/uL Hgb (11.4-16.0) gm/dL Hct (34.0-46.0) % Plt Count (150-450) k/uL Neutrophils # (1.3-7.7) k/uL Lymphocytes # (1.0-4.8) k/uL PT (9.0-12.0) sec INR (<1.2) ABG pH (7.35-7.45) ABG pCO2 (35-45) mmHg ABG pO2 (83-108) mmHg ABG Total CO2 (19-24) mmol/L ABG O2 Saturation 99.7 H (94-97) % Chloride (98-107) mmol/L BUN (7-17) mg/dL Glucose (74-99) mg/dL POC Glucose (mg/dL) 120 H 146 H (75-99) mg/dL Calcium (8.4-10.2) mg/dL Magnesium (1.6-2.3) mg/dL Alkaline Phosphatase (38-126) U/L Total Protein (6.3-8.2) g/dL Albumin (3.5-5.0) g/dL Crossmatch 02/01/18 02/01/18 Range/Units 06:54 08:15 WBC (3.8-10.6) k/uL RBC (3.80-5.40) m/uL Hgb (11.4-16.0) gm/dL Hct (34.0-46.0) % Plt Count (150-450) k/uL Neutrophils # (1.3-7.7) k/uL Lymphocytes # (1.0-4.8) k/uL PT (9.0-12.0) sec INR (<1.2) ABG pH (7.35-7.45) ABG pCO2 (35-45) mmHg ABG pO2 (83-108) mmHg ABG Total CO2 (19-24) mmol/L ABG O2 Saturation (94-97) % Chloride (98-107) mmol/L BUN (7-17) mg/dL Glucose (74-99) mg/dL POC Glucose (mg/dL) 149 H 152 H (75-99) mg/dL Calcium (8.4-10.2) mg/dL Magnesium (1.6-2.3) mg/dL Alkaline Phosphatase (38-126) U/L Total Protein (6.3-8.2) g/dL Albumin (3.5-5.0) g/dL Crossmatch Microbiology - Last 24 Hours (Table) 01/27/18 10:50 Blood Culture - Preliminary Blood No Growth after 96 hours Assessment and Plan Assessment: Severe triple-vessel coronary disease Postop day #1, status post four-vessel bypass grafting. Postoperative respiratory failure Acute non-ST segment elevation myocardial infarction Severe ischemic cardiomyopathy Systolic congestive heart failure Benign essential hypertension Hyperlipidemia Extrinsic ALLERGIC alveolitis Mild COPD Previous tobacco history Plan: Plan dated 01/31/2018 The patient after surgery for mechanical ventilation management. The patient otherwise is doing well. She likely will do well. Additional recommendations are made. The patient will be placed on updrafts after surgery. Typically will use DuoNeb every 4 hours around the clock. We'll continue to follow. Plan dated 02/01/2018 Start working on weaning the patient. The FiO2 has been weaned down to 50% and PEEP is at 5. Arterial blood gases are reasonable. The patient still on a bit of propofol. That will be weaned off. She also remains on Primacor, insulin, and Cleviprex. Additional recommendations and suggestions are forthcoming. Prognosis is guarded. Critical care time is 33 minutes Time with Patient: Greater than 30
--- NOTE | 2018-02-01 09:11 | P.PN ---
Subjective Progress Note Date: 02/01/18 Principal diagnosis: Severe ischemic cardiomyopathy with EF 25-30%, left main disease, non-ST elevation myocardial infarction, acute on chronic systolic heart failure, hypertension, hyperlipidemia, mild mitral valve regurgitation, evidence of remote old inferior wall myocardial infarction. History of gout, recent pneumonia, syncope 2 years ago, previous tobacco dependence with preoperative FEV1 65%. Obesity. POD #1 urgent coronary artery bypass grafting 4 using the left internal mammary artery to the mid left anterior descending artery, reverse saphenous vein graft from the aorta to the diagonal artery, reverse saphenous vein graft from the aorta to the first obtuse marginal artery, reverse saphenous vein graft from the aorta to the posterior descending artery. Endoscopic harvesting of the right greater saphenous vein. Intraoperative transesophageal echocardiogram and epi-aortic scanning. Intraoperative graft flow measurements using the Scality system. Patient's currently laying in bed, sedated on mechanical ventilation in no acute distress. Hemodynamically stable on Primacor and Cleviprex. Objective - Vital Signs Vital signs: Vital Signs Temp 98.6 F 01/31/18 06:16 Pulse 91 02/01/18 08:19 Resp 26 H 02/01/18 08:00 BP 110/51 02/01/18 08:00 Pulse Ox 96 02/01/18 08:00 Intake & Output 01/31/18 02/01/18 02/01/18 18:59 06:59 18:59 Intake Total 734.671 983.128 175.273 Output Total 2175 787 102 Balance -1440.329 196.128 73.273 Weight 81.2 kg Intake: IV 703 688 138 Albumin Human 5% 500 ml 500 In Empty Bag 1 bag @ 250 mls/hr IVPB ONCE PRN Rx#: [id number] CI/CO 60 20 Lactated Ringers 1,000 ml 200 550 100 @ 20 mls/hr IV .Q24H ERIN Rx#:[id number] pressure bag 78 18 Intake, IV Titration 31.671 295.128 37.273 Amount Clevidipine Butyrate 25 130.2 mg In Empty Bag 1 bag @ 1 MG/HR 2 mls/hr IV .Q24H ERIN Rx#:[id number] Insulin Regular 100 unit 0.892 32.558 2.833 In Sodium Chloride 0.9% 100 ml @ Per Protocol IV .Q0M ERIN Rx#:[id number] Milrinone-D5w Pmx 20 mg 4.8 In Dextrose/Water 1 100ml .bag @ Per Protocol IV . Q0M ERIN Rx#:[id number] Propofol 1,000 mg In 30.779 132.370 29.64 Empty Bag 1 bag @ Titrate IV .Q0M ERIN Rx#: [id number] Output: Chest Tube Drainage 80 162 7 Chest Tube Mediastinal 60 112 6 Left Pleural 15 33 0 Right Pleural 5 17 1 Drainage 80 20 Right Calf 80 20 Urine 595 545 75 Estimated Blood Loss 1500 Other: Voiding Method Indwelling Catheter Indwelling Catheter # Bowel Movements 0 ABP, PAP, CO, CI - Last Documented Arterial Blood Pressure 129/52 Pulmonary Artery Pressure 39/24 Cardiac Output 5.7 Cardiac Index 3.1 - Constitutional General appearance: Present: no acute distress, obese - Respiratory Details: Lungs sounds diminished bilaterally with faint expiratory wheezes. Respirations even, nonlabored. Currently 98% oxygen saturation on 50% FiO2. Ventilator settings assist control mode, FiO2 50%, tidal volume 400, respiratory rate 24, PEEP 5. ABGs this morning 7.35/40/85/22/-3.7/99% on 50% FiO2 and PEEP of 10. Mediastinal chest tube to continuous wall suction, 70 mL serosanguineous drainage overnight, 210 mL since surgery. Left pleural chest tube to continuous wall suction, 20 mL serosanguineous drainage overnight, 55 mL since surgery. Right pleural chest tube to continuous wall suction, 10 mL serosanguineous drainage overnight, 30 mL since surgery. No air leaks present. 8.0 ET tube present, 21 at the lip. - Cardiovascular Details: S1, S2 present. Regular rate and rhythm, sinus rhythm on telemetry. A/V epicardial pacemaker wires present, grounded. Sternum stable. Palpable peripheral pulses bilaterally. Bilateral upper extremity edema present. Right internal jugular Cordis/swan, left radial arterial line present. Currently on Primacor at 0.2 mics, Cleviprex with CO/CI this morning 7.1/3.9. - Gastrointestinal Gastrointestinal Comment(s): Abdomen soft, nontender, nondistended. Hypoactive bowel sounds present 4 quadrants. OG tube present to low intermittent suction. - Genitourinary Genitourinary Comment(s): [place] present draining clear, yellow urine. Output 35-50 mL per hour overnight. - Integumentary Integumentary Comment(s): Skin is warm and dry with evidence of good perfusion. Anterior chest incision well approximated and covered with dry intact dressing. Right lower extremity EVH site well approximated, ELICEO drain present with minimal serosanguineous drainage. - Neurologic Neurologic Comment(s): Sedated on mechanical ventilation. - Allied health notes Allied health notes reviewed: nursing - Labs CBC & Chem 7: 02/01/18 03:10 02/01/18 03:10 Labs: Abnormal Lab Results - Last 24 Hours (Table) 01/30/18 01/31/18 01/31/18 Range/Units 04:37 15:13 15:15 WBC 16.7 H (3.8-10.6) k/uL RBC 2.49 L (3.80-5.40) m/uL Hgb 7.5 L D (11.4-16.0) gm/dL Hct 23.6 L (34.0-46.0) % Plt Count 116 L D (150-450) k/uL Neutrophils # 14.9 H (1.3-7.7) k/uL Lymphocytes # 0.9 L (1.0-4.8) k/uL PT (9.0-12.0) sec INR (<1.2) ABG pH (7.35-7.45) ABG pCO2 (35-45) mmHg ABG pO2 (83-108) mmHg ABG Total CO2 (19-24) mmol/L ABG O2 Saturation (94-97) % Chloride (98-107) mmol/L BUN (7-17) mg/dL Glucose (74-99) mg/dL POC Glucose (mg/dL) 115 H (75-99) mg/dL Calcium (8.4-10.2) mg/dL Magnesium (1.6-2.3) mg/dL Alkaline Phosphatase (38-126) U/L Total Protein (6.3-8.2) g/dL Albumin (3.5-5.0) g/dL Crossmatch See Detail 01/31/18 01/31/18 01/31/18 Range/Units 15:15 15:15 15:36 WBC (3.8-10.6) k/uL RBC (3.80-5.40) m/uL Hgb (11.4-16.0) gm/dL Hct (34.0-46.0) % Plt Count (150-450) k/uL Neutrophils # (1.3-7.7) k/uL Lymphocytes # (1.0-4.8) k/uL PT 14.1 H (9.0-12.0) sec INR 1.5 H (<1.2) ABG pH 7.25 L (7.35-7.45) ABG pCO2 54 H (35-45) mmHg ABG pO2 74 L (83-108) mmHg ABG Total CO2 25 H (19-24) mmol/L ABG O2 Saturation (94-97) % Chloride 108 H (98-107) mmol/L BUN 19 H (7-17) mg/dL Glucose 104 H (74-99) mg/dL POC Glucose (mg/dL) (75-99) mg/dL Calcium 7.6 L (8.4-10.2) mg/dL Magnesium 3.1 H (1.6-2.3) mg/dL Alkaline Phosphatase 21 L (38-126) U/L Total Protein 4.2 L (6.3-8.2) g/dL Albumin 2.6 L (3.5-5.0) g/dL Crossmatch 01/31/18 01/31/18 01/31/18 Range/Units 16:09 16:15 17:06 WBC (3.8-10.6) k/uL RBC (3.80-5.40) m/uL Hgb (11.4-16.0) gm/dL Hct (34.0-46.0) % Plt Count (150-450) k/uL Neutrophils # (1.3-7.7) k/uL Lymphocytes # (1.0-4.8) k/uL PT (9.0-12.0) sec INR (<1.2) ABG pH 7.27 L (7.35-7.45) ABG pCO2 52 H (35-45) mmHg ABG pO2 81 L (83-108) mmHg ABG Total CO2 25 H (19-24) mmol/L ABG O2 Saturation (94-97) % Chloride (98-107) mmol/L BUN (7-17) mg/dL Glucose (74-99) mg/dL POC Glucose (mg/dL) 107 H 122 H (75-99) mg/dL Calcium (8.4-10.2) mg/dL Magnesium (1.6-2.3) mg/dL Alkaline Phosphatase (38-126) U/L Total Protein (6.3-8.2) g/dL Albumin (3.5-5.0) g/dL Crossmatch 01/31/18 01/31/18 01/31/18 Range/Units 18:01 18:27 18:28 WBC 11.3 H (3.8-10.6) k/uL RBC 2.39 L (3.80-5.40) m/uL Hgb 7.3 L (11.4-16.0) gm/dL Hct 22.7 L (34.0-46.0) % Plt Count 103 L (150-450) k/uL Neutrophils # 10.1 H (1.3-7.7) k/uL Lymphocytes # 0.4 L (1.0-4.8) k/uL PT (9.0-12.0) sec INR (<1.2) ABG pH 7.32 L (7.35-7.45) ABG pCO2 (35-45) mmHg ABG pO2 (83-108) mmHg ABG Total CO2 (19-24) mmol/L ABG O2 Saturation 98.2 H (94-97) % Chloride (98-107) mmol/L BUN (7-17) mg/dL Glucose (74-99) mg/dL POC Glucose (mg/dL) 124 H (75-99) mg/dL Calcium (8.4-10.2) mg/dL Magnesium (1.6-2.3) mg/dL Alkaline Phosphatase (38-126) U/L Total Protein (6.3-8.2) g/dL Albumin (3.5-5.0) g/dL Crossmatch 01/31/18 01/31/18 01/31/18 Range/Units 18:54 19:57 20:29 WBC 12.1 H (3.8-10.6) k/uL RBC 2.42 L (3.80-5.40) m/uL Hgb 7.4 L (11.4-16.0) gm/dL Hct 22.9 L (34.0-46.0) % Plt Count 108 L (150-450) k/uL Neutrophils # 11.2 H (1.3-7.7) k/uL Lymphocytes # 0.4 L (1.0-4.8) k/uL PT (9.0-12.0) sec INR (<1.2) ABG pH (7.35-7.45) ABG pCO2 (35-45) mmHg ABG pO2 (83-108) mmHg ABG Total CO2 (19-24) mmol/L ABG O2 Saturation (94-97) % Chloride (98-107) mmol/L BUN (7-17) mg/dL Glucose (74-99) mg/dL POC Glucose (mg/dL) 163 H 153 H (75-99) mg/dL Calcium (8.4-10.2) mg/dL Magnesium (1.6-2.3) mg/dL Alkaline Phosphatase (38-126) U/L Total Protein (6.3-8.2) g/dL Albumin (3.5-5.0) g/dL Crossmatch 01/31/18 01/31/18 01/31/18 Range/Units 20:45 20:51 22:11 WBC (3.8-10.6) k/uL RBC (3.80-5.40) m/uL Hgb (11.4-16.0) gm/dL Hct (34.0-46.0) % Plt Count (150-450) k/uL Neutrophils # (1.3-7.7) k/uL Lymphocytes # (1.0-4.8) k/uL PT (9.0-12.0) sec INR (<1.2) ABG pH (7.35-7.45) ABG pCO2 (35-45) mmHg ABG pO2 (83-108) mmHg ABG Total CO2 (19-24) mmol/L ABG O2 Saturation (94-97) % Chloride 109 H (98-107) mmol/L BUN 19 H (7-17) mg/dL Glucose 141 H (74-99) mg/dL POC Glucose (mg/dL) 154 H 155 H (75-99) mg/dL Calcium 8.2 L (8.4-10.2) mg/dL Magnesium (1.6-2.3) mg/dL Alkaline Phosphatase (38-126) U/L Total Protein (6.3-8.2) g/dL Albumin (3.5-5.0) g/dL Crossmatch 01/31/18 01/31/18 02/01/18 Range/Units 23:17 23:19 00:09 WBC (3.8-10.6) k/uL RBC (3.80-5.40) m/uL Hgb (11.4-16.0) gm/dL Hct (34.0-46.0) % Plt Count (150-450) k/uL Neutrophils # (1.3-7.7) k/uL Lymphocytes # (1.0-4.8) k/uL PT (9.0-12.0) sec INR (<1.2) ABG pH (7.35-7.45) ABG pCO2 (35-45) mmHg ABG pO2 (83-108) mmHg ABG Total CO2 (19-24) mmol/L ABG O2 Saturation (94-97) % Chloride (98-107) mmol/L BUN (7-17) mg/dL Glucose (74-99) mg/dL POC Glucose (mg/dL) 64 L 142 H 144 H (75-99) mg/dL Calcium (8.4-10.2) mg/dL Magnesium (1.6-2.3) mg/dL Alkaline Phosphatase (38-126) U/L Total Protein (6.3-8.2) g/dL Albumin (3.5-5.0) g/dL Crossmatch 02/01/18 02/01/18 02/01/18 Range/Units 01:16 02:26 03:10 WBC (3.8-10.6) k/uL RBC 2.37 L (3.80-5.40) m/uL Hgb 7.1 L (11.4-16.0) gm/dL Hct 22.3 L (34.0-46.0) % Plt Count 115 L (150-450) k/uL Neutrophils # 9.3 H (1.3-7.7) k/uL Lymphocytes # 0.4 L (1.0-4.8) k/uL PT (9.0-12.0) sec INR (<1.2) ABG pH (7.35-7.45) ABG pCO2 (35-45) mmHg ABG pO2 (83-108) mmHg ABG Total CO2 (19-24) mmol/L ABG O2 Saturation (94-97) % Chloride (98-107) mmol/L BUN (7-17) mg/dL Glucose (74-99) mg/dL POC Glucose (mg/dL) 125 H 126 H (75-99) mg/dL Calcium (8.4-10.2) mg/dL Magnesium (1.6-2.3) mg/dL Alkaline Phosphatase (38-126) U/L Total Protein (6.3-8.2) g/dL Albumin (3.5-5.0) g/dL Crossmatch 02/01/18 02/01/18 02/01/18 Range/Units 03:10 03:10 03:18 WBC (3.8-10.6) k/uL RBC (3.80-5.40) m/uL Hgb (11.4-16.0) gm/dL Hct (34.0-46.0) % Plt Count (150-450) k/uL Neutrophils # (1.3-7.7) k/uL Lymphocytes # (1.0-4.8) k/uL PT (9.0-12.0) sec INR 1.2 H (<1.2) ABG pH (7.35-7.45) ABG pCO2 (35-45) mmHg ABG pO2 (83-108) mmHg ABG Total CO2 (19-24) mmol/L ABG O2 Saturation (94-97) % Chloride 108 H (98-107) mmol/L BUN 20 H (7-17) mg/dL Glucose (74-99) mg/dL POC Glucose (mg/dL) 109 H (75-99) mg/dL Calcium 8.2 L (8.4-10.2) mg/dL Magnesium 2.8 H (1.6-2.3) mg/dL Alkaline Phosphatase 26 L (38-126) U/L Total Protein 4.8 L (6.3-8.2) g/dL Albumin 3.2 L (3.5-5.0) g/dL Crossmatch 02/01/18 02/01/18 02/01/18 Range/Units 04:50 04:55 06:04 WBC (3.8-10.6) k/uL RBC (3.80-5.40) m/uL Hgb (11.4-16.0) gm/dL Hct (34.0-46.0) % Plt Count (150-450) k/uL Neutrophils # (1.3-7.7) k/uL Lymphocytes # (1.0-4.8) k/uL PT (9.0-12.0) sec INR (<1.2) ABG pH (7.35-7.45) ABG pCO2 (35-45) mmHg ABG pO2 (83-108) mmHg ABG Total CO2 (19-24) mmol/L ABG O2 Saturation 99.7 H (94-97) % Chloride (98-107) mmol/L BUN (7-17) mg/dL Glucose (74-99) mg/dL POC Glucose (mg/dL) 120 H 146 H (75-99) mg/dL Calcium (8.4-10.2) mg/dL Magnesium (1.6-2.3) mg/dL Alkaline Phosphatase (38-126) U/L Total Protein (6.3-8.2) g/dL Albumin (3.5-5.0) g/dL Crossmatch 02/01/18 02/01/18 Range/Units 06:54 08:15 WBC (3.8-10.6) k/uL RBC (3.80-5.40) m/uL Hgb (11.4-16.0) gm/dL Hct (34.0-46.0) % Plt Count (150-450) k/uL Neutrophils # (1.3-7.7) k/uL Lymphocytes # (1.0-4.8) k/uL PT (9.0-12.0) sec INR (<1.2) ABG pH (7.35-7.45) ABG pCO2 (35-45) mmHg ABG pO2 (83-108) mmHg ABG Total CO2 (19-24) mmol/L ABG O2 Saturation (94-97) % Chloride (98-107) mmol/L BUN (7-17) mg/dL Glucose (74-99) mg/dL POC Glucose (mg/dL) 149 H 152 H (75-99) mg/dL Calcium (8.4-10.2) mg/dL Magnesium (1.6-2.3) mg/dL Alkaline Phosphatase (38-126) U/L Total Protein (6.3-8.2) g/dL Albumin (3.5-5.0) g/dL Crossmatch Microbiology - Last 24 Hours (Table) 01/27/18 10:50 Blood Culture - Preliminary Blood No Growth after 96 hours - Imaging and Cardiology Chest x-ray: report reviewed, image reviewed Assessment and Plan (1) Left main coronary artery disease Current Visit: Yes Status: Chronic Code(s): I25.10 - ATHSCL HEART DISEASE OF [place] CORONARY ARTERY W/O ANG PCTRS SNOMED Code(s): 440252059 (2) Acute on chronic systolic heart failure Current Visit: Yes Status: Acute Code(s): I50.23 - ACUTE ON CHRONIC SYSTOLIC (CONGESTIVE) HEART FAILURE SNOMED Code(s): 946518228 (3) History of myocardial infarction Current Visit: No Status: Resolved Code(s): I25.2 - OLD MYOCARDIAL INFARCTION SNOMED Code(s): 856170474 (4) History of gout Current Visit: Yes Status: Chronic Code(s): Z87.39 - PERSONAL HISTORY OF DISEASES OF THE MS SYS AND CONN TISS SNOMED Code(s): 432762525 (5) Tobacco dependence in remission Current Visit: No Status: Resolved Code(s): F17.201 - NICOTINE DEPENDENCE, UNSPECIFIED, IN REMISSION SNOMED Code(s): 358895487 (6) Coronary artery disease Current Visit: Yes Status: Chronic Code(s): I25.10 - ATHSCL HEART DISEASE OF [place] CORONARY ARTERY W/O ANG PCTRS SNOMED Code(s): 55212035 (7) Hyperlipidemia Current Visit: Yes Status: Chronic Code(s): E78.5 - HYPERLIPIDEMIA, UNSPECIFIED SNOMED Code(s): 88690205 (8) Hypertension Current Visit: Yes Status: Chronic Code(s): I10 - ESSENTIAL (PRIMARY) HYPERTENSION SNOMED Code(s): 62179827 (9) Ischemic cardiomyopathy Current Visit: Yes Status: Chronic Code(s): I25.5 - ISCHEMIC CARDIOMYOPATHY SNOMED Code(s): 952397444 (10) NSTEMI (non-ST elevated myocardial infarction) Current Visit: Yes Status: Acute Code(s): I21.4 - NON-ST ELEVATION (NSTEMI) MYOCARDIAL INFARCTION SNOMED Code(s): 361285557 Plan: 1. Continue aspirin, statin, Plavix, subcu heparin, beta saw. Will increase beta saw as tolerated. 2. Wean Cleviprex as tolerated. 3. Discontinue nitro drip. Wean Primacor. 4. Ventilator management per Dr. Amador. Wean as tolerated. Encourage incentive spirometry use 10 times every hour once extubated. 5. Will give Lasix 20 mg IV push this morning. 6. Will monitor daily labs and x-rays. 7. GI/DVT prophylaxis. 8. Insulin drip/diabetic management per primary care physician. 9. Will increase activity once extubated. PT/OT/cardiac rehab following. 10. More recommendations to follow. Time with Patient: Greater than 30
[2018-02-01 09:18] LABS: Glucose,Whole Blood 141 mg/dL (75-99)
[2018-02-01] MEDS ORDERED: METOPROLOL TARTRATE 12.5 MG TAB PO STA (09:59)
[2018-02-01 10:33] LABS: Glucose,Whole Blood 143 mg/dL (75-99)
[2018-02-01 10:51] LABS: ABG Base Excess -2.5 mmol/L; ABG HCO3 22 mmol/L (21-25); ABG Oxygen Saturation 96.1 % (94-97); ABG PCO2 36 mmHg (35-45); ABG PO2 70 mmHg (83-108); ABG TCO2 24 mmol/L (19-24)
--- NOTE | 2018-02-01 10:52 | P.PN ---
Subjective Progress Note Date: 02/01/18 Principal diagnosis: Acute coronary syndrome This is a pleasant 73-year-old female patient with a past medical history significant for hypertension and dyslipidemia with no documented history of coronary artery disease or congestive heart failure presented to the hospital complaining of shortness of breath for the last 3 weeks. The patient stated that the shortness of breath was started about 3 weeks ago. Beside that she describes epigastric discomfort. She stated she developed bilateral lower extremities edema and she was seen by her primary care physician who put her on Lasix with improvement in the edema. The patient did not have any symptoms of chest pain or discomfort, dizziness or lightheadedness , or any syncope. She does have epigastric discomfort mainly. The EKG showed sinus rhythm with nonspecific changes in the inferior leads. There was also some ST and T wave abnormalities seems to be diffuse. Beside that the d-dimer came in to be abnormal and the patient is in process to have a CTA of the chest to rule out any PE. The BNP came in to be also severely abnormal and the patient was given Lasix IV in the emergency room. The first set of troponin also came in to be slightly abnormal. The patient underwent an emergent heart catheterization and that revealed severe triple-vessel coronary artery disease. She was seen and evaluated by cardiothoracic surgeon and the plan is to proceed with CABG this coming Wednesday. The patient underwent CABG 4 yesterday we'll DURON to LAD, SVG to diagonal, SVG to OM, and SVG to PDA. She is currently intubated and she is in process to be extubated. Hemodynamically she continues to be stable. Objective - Vital Signs Vital signs: Vital Signs Temp 98.6 F 01/31/18 06:16 Pulse 96 02/01/18 10:00 Resp 24 02/01/18 10:00 BP 111/55 02/01/18 10:00 Pulse Ox 96 02/01/18 10:00 Intake & Output 01/31/18 02/01/18 02/01/18 18:59 06:59 18:59 Intake Total 734.671 983.128 399.068 Output Total 2175 787 537 Balance -1440.329 196.128 -137.932 Weight 81.2 kg Intake: IV 703 688 256 Albumin Human 5% 500 ml 500 In Empty Bag 1 bag @ 250 mls/hr IVPB ONCE PRN Rx#: [id number] CI/CO 60 20 Lactated Ringers 1,000 ml 200 550 200 @ 20 mls/hr IV .Q24H ERIN Rx#:[id number] pressure bag 78 36 Intake, IV Titration 31.671 295.128 143.068 Amount Clevidipine Butyrate 25 130.2 mg In Empty Bag 1 bag @ 1 MG/HR 2 mls/hr IV .Q24H ERIN Rx#:[id number] Insulin Regular 100 unit 0.892 32.558 2.833 In Sodium Chloride 0.9% 100 ml @ Per Protocol IV .Q0M ERIN Rx#:[id number] Milrinone-D5w Pmx 20 mg 87.692 In Dextrose/Water 1 100ml .bag @ Per Protocol IV . Q0M ERIN Rx#:[id number] Propofol 1,000 mg In 30.779 132.370 52.543 Empty Bag 1 bag @ Titrate IV .Q0M ERIN Rx#: [id number] Output: Chest Tube Drainage 80 162 47 Chest Tube Mediastinal 60 112 36 Left Pleural 15 33 10 Right Pleural 5 17 1 Drainage 80 40 Right Calf 80 40 Urine 595 545 450 Estimated Blood Loss 1500 Other: Voiding Method Indwelling Catheter Indwelling Catheter Indwelling Catheter # Bowel Movements 0 ABP, PAP, CO, CI - Last Documented Arterial Blood Pressure 128/51 Pulmonary Artery Pressure 43/21 Cardiac Output 6.1 Cardiac Index 3.3 - Constitutional General appearance: Present: no acute distress - Labs CBC & Chem 7: 02/01/18 03:10 02/01/18 03:10 Labs: Abnormal Lab Results - Last 24 Hours (Table) 01/30/18 01/31/18 01/31/18 Range/Units 04:37 15:13 15:15 WBC 16.7 H (3.8-10.6) k/uL RBC 2.49 L (3.80-5.40) m/uL Hgb 7.5 L D (11.4-16.0) gm/dL Hct 23.6 L (34.0-46.0) % Plt Count 116 L D (150-450) k/uL Neutrophils # 14.9 H (1.3-7.7) k/uL Lymphocytes # 0.9 L (1.0-4.8) k/uL PT (9.0-12.0) sec INR (<1.2) ABG pH (7.35-7.45) ABG pCO2 (35-45) mmHg ABG pO2 (83-108) mmHg ABG Total CO2 (19-24) mmol/L ABG O2 Saturation (94-97) % Chloride (98-107) mmol/L BUN (7-17) mg/dL Glucose (74-99) mg/dL POC Glucose (mg/dL) 115 H (75-99) mg/dL Calcium (8.4-10.2) mg/dL Magnesium (1.6-2.3) mg/dL Alkaline Phosphatase (38-126) U/L Total Protein (6.3-8.2) g/dL Albumin (3.5-5.0) g/dL Crossmatch See Detail 01/31/18 01/31/18 01/31/18 Range/Units 15:15 15:15 15:36 WBC (3.8-10.6) k/uL RBC (3.80-5.40) m/uL Hgb (11.4-16.0) gm/dL Hct (34.0-46.0) % Plt Count (150-450) k/uL Neutrophils # (1.3-7.7) k/uL Lymphocytes # (1.0-4.8) k/uL PT 14.1 H (9.0-12.0) sec INR 1.5 H (<1.2) ABG pH 7.25 L (7.35-7.45) ABG pCO2 54 H (35-45) mmHg ABG pO2 74 L (83-108) mmHg ABG Total CO2 25 H (19-24) mmol/L ABG O2 Saturation (94-97) % Chloride 108 H (98-107) mmol/L BUN 19 H (7-17) mg/dL Glucose 104 H (74-99) mg/dL POC Glucose (mg/dL) (75-99) mg/dL Calcium 7.6 L (8.4-10.2) mg/dL Magnesium 3.1 H (1.6-2.3) mg/dL Alkaline Phosphatase 21 L (38-126) U/L Total Protein 4.2 L (6.3-8.2) g/dL Albumin 2.6 L (3.5-5.0) g/dL Crossmatch 01/31/18 01/31/18 01/31/18 Range/Units 16:09 16:15 17:06 WBC (3.8-10.6) k/uL RBC (3.80-5.40) m/uL Hgb (11.4-16.0) gm/dL Hct (34.0-46.0) % Plt Count (150-450) k/uL Neutrophils # (1.3-7.7) k/uL Lymphocytes # (1.0-4.8) k/uL PT (9.0-12.0) sec INR (<1.2) ABG pH 7.27 L (7.35-7.45) ABG pCO2 52 H (35-45) mmHg ABG pO2 81 L (83-108) mmHg ABG Total CO2 25 H (19-24) mmol/L ABG O2 Saturation (94-97) % Chloride (98-107) mmol/L BUN (7-17) mg/dL Glucose (74-99) mg/dL POC Glucose (mg/dL) 107 H 122 H (75-99) mg/dL Calcium (8.4-10.2) mg/dL Magnesium (1.6-2.3) mg/dL Alkaline Phosphatase (38-126) U/L Total Protein (6.3-8.2) g/dL Albumin (3.5-5.0) g/dL Crossmatch 01/31/18 01/31/18 01/31/18 Range/Units 18:01 18:27 18:28 WBC 11.3 H (3.8-10.6) k/uL RBC 2.39 L (3.80-5.40) m/uL Hgb 7.3 L (11.4-16.0) gm/dL Hct 22.7 L (34.0-46.0) % Plt Count 103 L (150-450) k/uL Neutrophils # 10.1 H (1.3-7.7) k/uL Lymphocytes # 0.4 L (1.0-4.8) k/uL PT (9.0-12.0) sec INR (<1.2) ABG pH 7.32 L (7.35-7.45) ABG pCO2 (35-45) mmHg ABG pO2 (83-108) mmHg ABG Total CO2 (19-24) mmol/L ABG O2 Saturation 98.2 H (94-97) % Chloride (98-107) mmol/L BUN (7-17) mg/dL Glucose (74-99) mg/dL POC Glucose (mg/dL) 124 H (75-99) mg/dL Calcium (8.4-10.2) mg/dL Magnesium (1.6-2.3) mg/dL Alkaline Phosphatase (38-126) U/L Total Protein (6.3-8.2) g/dL Albumin (3.5-5.0) g/dL Crossmatch 01/31/18 01/31/18 01/31/18 Range/Units 18:54 19:57 20:29 WBC 12.1 H (3.8-10.6) k/uL RBC 2.42 L (3.80-5.40) m/uL Hgb 7.4 L (11.4-16.0) gm/dL Hct 22.9 L (34.0-46.0) % Plt Count 108 L (150-450) k/uL Neutrophils # 11.2 H (1.3-7.7) k/uL Lymphocytes # 0.4 L (1.0-4.8) k/uL PT (9.0-12.0) sec INR (<1.2) ABG pH (7.35-7.45) ABG pCO2 (35-45) mmHg ABG pO2 (83-108) mmHg ABG Total CO2 (19-24) mmol/L ABG O2 Saturation (94-97) % Chloride (98-107) mmol/L BUN (7-17) mg/dL Glucose (74-99) mg/dL POC Glucose (mg/dL) 163 H 153 H (75-99) mg/dL Calcium (8.4-10.2) mg/dL Magnesium (1.6-2.3) mg/dL Alkaline Phosphatase (38-126) U/L Total Protein (6.3-8.2) g/dL Albumin (3.5-5.0) g/dL Crossmatch 01/31/18 01/31/18 01/31/18 Range/Units 20:45 20:51 22:11 WBC (3.8-10.6) k/uL RBC (3.80-5.40) m/uL Hgb (11.4-16.0) gm/dL Hct (34.0-46.0) % Plt Count (150-450) k/uL Neutrophils # (1.3-7.7) k/uL Lymphocytes # (1.0-4.8) k/uL PT (9.0-12.0) sec INR (<1.2) ABG pH (7.35-7.45) ABG pCO2 (35-45) mmHg ABG pO2 (83-108) mmHg ABG Total CO2 (19-24) mmol/L ABG O2 Saturation (94-97) % Chloride 109 H (98-107) mmol/L BUN 19 H (7-17) mg/dL Glucose 141 H (74-99) mg/dL POC Glucose (mg/dL) 154 H 155 H (75-99) mg/dL Calcium 8.2 L (8.4-10.2) mg/dL Magnesium (1.6-2.3) mg/dL Alkaline Phosphatase (38-126) U/L Total Protein (6.3-8.2) g/dL Albumin (3.5-5.0) g/dL Crossmatch 01/31/18 01/31/18 02/01/18 Range/Units 23:17 23:19 00:09 WBC (3.8-10.6) k/uL RBC (3.80-5.40) m/uL Hgb (11.4-16.0) gm/dL Hct (34.0-46.0) % Plt Count (150-450) k/uL Neutrophils # (1.3-7.7) k/uL Lymphocytes # (1.0-4.8) k/uL PT (9.0-12.0) sec INR (<1.2) ABG pH (7.35-7.45) ABG pCO2 (35-45) mmHg ABG pO2 (83-108) mmHg ABG Total CO2 (19-24) mmol/L ABG O2 Saturation (94-97) % Chloride (98-107) mmol/L BUN (7-17) mg/dL Glucose (74-99) mg/dL POC Glucose (mg/dL) 64 L 142 H 144 H (75-99) mg/dL Calcium (8.4-10.2) mg/dL Magnesium (1.6-2.3) mg/dL Alkaline Phosphatase (38-126) U/L Total Protein (6.3-8.2) g/dL Albumin (3.5-5.0) g/dL Crossmatch 02/01/18 02/01/18 02/01/18 Range/Units 01:16 02:26 03:10 WBC (3.8-10.6) k/uL RBC 2.37 L (3.80-5.40) m/uL Hgb 7.1 L (11.4-16.0) gm/dL Hct 22.3 L (34.0-46.0) % Plt Count 115 L (150-450) k/uL Neutrophils # 9.3 H (1.3-7.7) k/uL Lymphocytes # 0.4 L (1.0-4.8) k/uL PT (9.0-12.0) sec INR (<1.2) ABG pH (7.35-7.45) ABG pCO2 (35-45) mmHg ABG pO2 (83-108) mmHg ABG Total CO2 (19-24) mmol/L ABG O2 Saturation (94-97) % Chloride (98-107) mmol/L BUN (7-17) mg/dL Glucose (74-99) mg/dL POC Glucose (mg/dL) 125 H 126 H (75-99) mg/dL Calcium (8.4-10.2) mg/dL Magnesium (1.6-2.3) mg/dL Alkaline Phosphatase (38-126) U/L Total Protein (6.3-8.2) g/dL Albumin (3.5-5.0) g/dL Crossmatch 02/01/18 02/01/18 02/01/18 Range/Units 03:10 03:10 03:18 WBC (3.8-10.6) k/uL RBC (3.80-5.40) m/uL Hgb (11.4-16.0) gm/dL Hct (34.0-46.0) % Plt Count (150-450) k/uL Neutrophils # (1.3-7.7) k/uL Lymphocytes # (1.0-4.8) k/uL PT (9.0-12.0) sec INR 1.2 H (<1.2) ABG pH (7.35-7.45) ABG pCO2 (35-45) mmHg ABG pO2 (83-108) mmHg ABG Total CO2 (19-24) mmol/L ABG O2 Saturation (94-97) % Chloride 108 H (98-107) mmol/L BUN 20 H (7-17) mg/dL Glucose (74-99) mg/dL POC Glucose (mg/dL) 109 H (75-99) mg/dL Calcium 8.2 L (8.4-10.2) mg/dL Magnesium 2.8 H (1.6-2.3) mg/dL Alkaline Phosphatase 26 L (38-126) U/L Total Protein 4.8 L (6.3-8.2) g/dL Albumin 3.2 L (3.5-5.0) g/dL Crossmatch 02/01/18 02/01/18 02/01/18 Range/Units 04:50 04:55 06:04 WBC (3.8-10.6) k/uL RBC (3.80-5.40) m/uL Hgb (11.4-16.0) gm/dL Hct (34.0-46.0) % Plt Count (150-450) k/uL Neutrophils # (1.3-7.7) k/uL Lymphocytes # (1.0-4.8) k/uL PT (9.0-12.0) sec INR (<1.2) ABG pH (7.35-7.45) ABG pCO2 (35-45) mmHg ABG pO2 (83-108) mmHg ABG Total CO2 (19-24) mmol/L ABG O2 Saturation 99.7 H (94-97) % Chloride (98-107) mmol/L BUN (7-17) mg/dL Glucose (74-99) mg/dL POC Glucose (mg/dL) 120 H 146 H (75-99) mg/dL Calcium (8.4-10.2) mg/dL Magnesium (1.6-2.3) mg/dL Alkaline Phosphatase (38-126) U/L Total Protein (6.3-8.2) g/dL Albumin (3.5-5.0) g/dL Crossmatch 02/01/18 02/01/18 02/01/18 Range/Units 06:54 08:15 09:14 WBC (3.8-10.6) k/uL RBC (3.80-5.40) m/uL Hgb (11.4-16.0) gm/dL Hct (34.0-46.0) % Plt Count (150-450) k/uL Neutrophils # (1.3-7.7) k/uL Lymphocytes # (1.0-4.8) k/uL PT (9.0-12.0) sec INR (<1.2) ABG pH (7.35-7.45) ABG pCO2 (35-45) mmHg ABG pO2 (83-108) mmHg ABG Total CO2 (19-24) mmol/L ABG O2 Saturation (94-97) % Chloride (98-107) mmol/L BUN (7-17) mg/dL Glucose (74-99) mg/dL POC Glucose (mg/dL) 149 H 152 H 141 H (75-99) mg/dL Calcium (8.4-10.2) mg/dL Magnesium (1.6-2.3) mg/dL Alkaline Phosphatase (38-126) U/L Total Protein (6.3-8.2) g/dL Albumin (3.5-5.0) g/dL Crossmatch 02/01/18 Range/Units 10:31 WBC (3.8-10.6) k/uL RBC (3.80-5.40) m/uL Hgb (11.4-16.0) gm/dL Hct (34.0-46.0) % Plt Count (150-450) k/uL Neutrophils # (1.3-7.7) k/uL Lymphocytes # (1.0-4.8) k/uL PT (9.0-12.0) sec INR (<1.2) ABG pH (7.35-7.45) ABG pCO2 (35-45) mmHg ABG pO2 (83-108) mmHg ABG Total CO2 (19-24) mmol/L ABG O2 Saturation (94-97) % Chloride (98-107) mmol/L BUN (7-17) mg/dL Glucose (74-99) mg/dL POC Glucose (mg/dL) 143 H (75-99) mg/dL Calcium (8.4-10.2) mg/dL Magnesium (1.6-2.3) mg/dL Alkaline Phosphatase (38-126) U/L Total Protein (6.3-8.2) g/dL Albumin (3.5-5.0) g/dL Crossmatch Microbiology - Last 24 Hours (Table) 01/27/18 10:50 Blood Culture - Preliminary Blood No Growth after 96 hours Assessment and Plan Assessment: assessment #1 severe triple-vessel coronary artery disease and status post CABG #2 severe ischemic cardiomyopathy. #3 congestive heart failure exacerbation secondary to systolic dysfunction #4 hypertension #5 dyslipidemia Plan #1 continue the current medical treatment #2the patient is in process to be extubated #3 continue dual antiplatelet therapy along with metoprolol Thank you for allowing us participate in her care and we'll continue following up with the patient
[2018-02-01] MEDS: MORPHINE SULFATE 4MG/4ML SYRG IVP PRN ×2 (11:12→13:51)
[2018-02-01 12:08] LABS: Glucose,Whole Blood 126 mg/dL (75-99)
[2018-02-01] MEDS: KETOROLAC 30 MG/ML 1 ML VIAL IVP SCH ×3 (12:58→23:31)
[2018-02-01 13:05] LABS: Glucose,Whole Blood 120 mg/dL (75-99)
[2018-02-01 14:22] LABS: Glucose,Whole Blood 116 mg/dL (75-99)
[2018-02-01] MEDS ORDERED: BISACODYL 10 MG SUPP RECTAL PRN (14:36)
[2018-02-01] MEDS ORDERED: IPRATROPIUM-ALBUTEROL 3 ML NEB INHALATION PRN (14:37)
[2018-02-01] MEDS: HYDROcodone/APAP 5-325MG 1 EACH TAB PO PRN (15:57)
[2018-02-01 16:05] LABS: Glucose,Whole Blood 116 mg/dL (75-99)
[2018-02-01] MEDS: LACTATED RINGERS 1,000 ML IV SCH (16:05)
[2018-02-01 16:35] LABS: Magnesium 2.7 mg/dL (1.6-2.3)
[2018-02-01] MEDS ORDERED: DEXTROSE 5% IN WATER 100 ML with AMIODARONE 150 MG IV ONE (17:15)
[2018-02-01] MEDS: AMIODARONE 450 MG in DEXTROSE 5% IN WATER 250 ML IV SCH ×2 (17:26)
[2018-02-01] MEDS: INSULIN ASPART 100 UNIT/ML 1 ML 10 ML VIAL SQ SCH ×2 (17:37→22:22)
[2018-02-01 17:38] LABS: Glucose,Whole Blood 120 mg/dL (75-99)
[2018-02-01] MEDS: SENNOSIDES-DOCUSATE SODIUM 1 EACH TAB PO SCH (20:03)
[2018-02-01] MEDS ORDERED: METOPROLOL TARTRATE 25 MG TAB PO SCH (21:00)
[2018-02-01 22:20] LABS: Glucose,Whole Blood 179 mg/dL (75-99)
--- NOTE | 2018-02-01 23:35 | P.PN ---
Subjective Progress Note Date: 01/31/18 Principal diagnosis: Status post cardiac catheterization. Triple-vessel disease This is a pleasant 73-year-old female patient with a past medical history significant for hypertension and dyslipidemia with no documented history of coronary artery disease or congestive heart failure presented to the hospital complaining of shortness of breath for the last 3 weeks. The patient stated that the shortness of breath was started about 3 weeks ago. Beside that she describes epigastric discomfort. She stated she developed bilateral lower extremities edema and she was seen by her primary care physician who put her on Lasix with improvement in the edema. The patient did not have any symptoms of chest pain or discomfort, dizziness or lightheadedness , or any syncope. She does have epigastric discomfort mainly. The EKG showed sinus rhythm with nonspecific changes in the inferior leads. There was also some ST and T wave abnormalities seems to be diffuse. Beside that the d-dimer came in to be abnormal and the patient is in process to have a CTA of the chest to rule out any PE. The BNP came in to be also severely abnormal and the patient was given Lasix IV in the emergency room. The first set of troponin also came in to be slightly abnormal. The patient underwent an emergent heart catheterization and that revealed severe triple-vessel coronary artery disease. She was seen and evaluated by cardiothoracic surgeon and the plan is to proceed with CABG this coming Wednesday. 01/28/2018 Patient seen and examined at bedside in ICU; family members at bedside; she denies any chest pain or shortness of breath; patient is continued on aspirin, metoprolol, Lasix and Aldactone; statins and lisinopril has been continued; echocardiogram showed impaired left ventricular function with ejection fraction of 25-30% 01/29/2018 Patient remains in ICU; sitting up in a chair and denies any chest pain or shortness of breath; overall patient seems to be doing better 01/30/2018 Patient remains in ICU and remains chest pain-free; patient relates that her swelling in both lower extremities is improved; she remains on Lasix and Aldactone Patient is scheduled for CABG in the morning 01/31/2018 Patient underwent quadruple bypass graft today currently intubated postoperatively. Pulmonary and CT surgery is following. Chest x-ray showed left lower lung atelectasis and possible postoperative changes. Current medications reviewed. Objective - Vital Signs Vital signs: Vital Signs Temp 98.6 F 01/31/18 06:16 Pulse 63 01/31/18 06:16 Resp 15 01/31/18 06:16 BP 115/62 01/31/18 06:16 Pulse Ox 92 L 01/31/18 06:16 Intake & Output 01/30/18 01/31/18 01/31/18 18:59 06:59 18:59 Intake Total 940 220 3 Output Total 3150 300 1735 Balance -2140 80 -6331 Weight 78.9 kg Intake: IV 220 220 3 0.9% 1000ml@20mls/hr KVO 220 220 Oral 720 Output: Urine 3150 300 235 Estimated Blood Loss 1500 Other: Voiding Method Bedside Commode Bedside Commode # Voids 0 # Bowel Movements 1 - Exam PHYSICAL EXAMINATION: Patient is lying in the bed comfortably, no acute distress, currently on mechanical ventilator HEENT: Normocephalic. Neck is supple. Pupils reactive. Nostrils clear. Oral cavity is moist. Ears reveal no drainage. Neck reveals no JVD, carotid bruits, or thyromegaly. CHEST EXAMINATION: Trachea is central. Symmetrical expansion. Lung almanzar clear to auscultation and percussion. CARDIAC: Normal S1, S2 with no gallops. No murmurs ABDOMEN: Soft. Bowel sounds normal. No organomegaly. No abdominal bruits. Extremities: reveal no edema. No clubbing or cyanosis Neurologically currently on mechanical ventilator. No focal deficits noted Skin: No rash or skin lesions. Psychiatric: Could not be assessed completely Musculoskeletal: No joint swelling or deformity. Normal range of motion. - Labs CBC & Chem 7: 02/01/18 03:10 02/01/18 16:10 Labs: Abnormal Lab Results - Last 24 Hours (Table) 01/30/18 01/31/18 01/31/18 Range/Units 04:37 03:54 03:54 WBC 11.1 H (3.8-10.6) k/uL RBC (3.80-5.40) m/uL Hgb (11.4-16.0) gm/dL Hct (34.0-46.0) % Plt Count (150-450) k/uL Neutrophils # 9.0 H (1.3-7.7) k/uL Lymphocytes # (1.0-4.8) k/uL PT (9.0-12.0) sec INR (<1.2) APTT (22.0-30.0) sec ABG pH (7.35-7.45) ABG pCO2 (35-45) mmHg ABG pO2 (83-108) mmHg ABG Total CO2 (19-24) mmol/L Chloride (98-107) mmol/L BUN 22 H (7-17) mg/dL Glucose (74-99) mg/dL POC Glucose (mg/dL) (75-99) mg/dL Calcium (8.4-10.2) mg/dL Magnesium 2.4 H (1.6-2.3) mg/dL Alkaline Phosphatase (38-126) U/L Total Protein (6.3-8.2) g/dL Albumin (3.5-5.0) g/dL Crossmatch See Detail 01/31/18 01/31/18 01/31/18 Range/Units 03:54 15:13 15:15 WBC 16.7 H (3.8-10.6) k/uL RBC 2.49 L (3.80-5.40) m/uL Hgb 7.5 L D (11.4-16.0) gm/dL Hct 23.6 L (34.0-46.0) % Plt Count 116 L D (150-450) k/uL Neutrophils # 14.9 H (1.3-7.7) k/uL Lymphocytes # 0.9 L (1.0-4.8) k/uL PT (9.0-12.0) sec INR (<1.2) APTT 58.6 H (22.0-30.0) sec ABG pH (7.35-7.45) ABG pCO2 (35-45) mmHg ABG pO2 (83-108) mmHg ABG Total CO2 (19-24) mmol/L Chloride (98-107) mmol/L BUN (7-17) mg/dL Glucose (74-99) mg/dL POC Glucose (mg/dL) 115 H (75-99) mg/dL Calcium (8.4-10.2) mg/dL Magnesium (1.6-2.3) mg/dL Alkaline Phosphatase (38-126) U/L Total Protein (6.3-8.2) g/dL Albumin (3.5-5.0) g/dL Crossmatch 01/31/18 01/31/18 01/31/18 Range/Units 15:15 15:15 15:36 WBC (3.8-10.6) k/uL RBC (3.80-5.40) m/uL Hgb (11.4-16.0) gm/dL Hct (34.0-46.0) % Plt Count (150-450) k/uL Neutrophils # (1.3-7.7) k/uL Lymphocytes # (1.0-4.8) k/uL PT 14.1 H (9.0-12.0) sec INR 1.5 H (<1.2) APTT (22.0-30.0) sec ABG pH 7.25 L (7.35-7.45) ABG pCO2 54 H (35-45) mmHg ABG pO2 74 L (83-108) mmHg ABG Total CO2 25 H (19-24) mmol/L Chloride 108 H (98-107) mmol/L BUN 19 H (7-17) mg/dL Glucose 104 H (74-99) mg/dL POC Glucose (mg/dL) (75-99) mg/dL Calcium 7.6 L (8.4-10.2) mg/dL Magnesium 3.1 H (1.6-2.3) mg/dL Alkaline Phosphatase 21 L (38-126) U/L Total Protein 4.2 L (6.3-8.2) g/dL Albumin 2.6 L (3.5-5.0) g/dL Crossmatch 01/31/18 01/31/18 Range/Units 16:09 16:15 WBC (3.8-10.6) k/uL RBC (3.80-5.40) m/uL Hgb (11.4-16.0) gm/dL Hct (34.0-46.0) % Plt Count (150-450) k/uL Neutrophils # (1.3-7.7) k/uL Lymphocytes # (1.0-4.8) k/uL PT (9.0-12.0) sec INR (<1.2) APTT (22.0-30.0) sec ABG pH 7.27 L (7.35-7.45) ABG pCO2 52 H (35-45) mmHg ABG pO2 81 L (83-108) mmHg ABG Total CO2 25 H (19-24) mmol/L Chloride (98-107) mmol/L BUN (7-17) mg/dL Glucose (74-99) mg/dL POC Glucose (mg/dL) 107 H (75-99) mg/dL Calcium (8.4-10.2) mg/dL Magnesium (1.6-2.3) mg/dL Alkaline Phosphatase (38-126) U/L Total Protein (6.3-8.2) g/dL Albumin (3.5-5.0) g/dL Crossmatch Microbiology - Last 24 Hours (Table) 01/27/18 10:50 Blood Culture - Preliminary Blood No Growth after 96 hours Assessment and Plan Assessment: Acute non-ST elevated GA. Status post Cardiac catheterization showed triple- vessel disease. Status post quadruple bypass graft on 01/31/2018 Exertional shortness of breath for 2 weeks Acute CHF with systolic dysfunction Severe ischemic cardio myopathy Leukocytosis. Likely reactive. Hypertension hyperlipidemia Obesity DVT prophylaxis Plan: Continue with the aspirin statins and metoprolol and lisinopril and Aldactone. Cardiology and cardiac surgery is following. We'll continue to monitor renal function. Follow-up CBC and BMP tomorrow. Continue to monitor the patient in ICU. Further recommendations based on the clinical course. Time with Patient: Greater than 30
--- NOTE | 2018-02-01 23:38 | P.PN ---
Subjective Progress Note Date: 02/01/18 Principal diagnosis: Status post cardiac catheterization. Triple-vessel disease This is a pleasant 73-year-old female patient with a past medical history significant for hypertension and dyslipidemia with no documented history of coronary artery disease or congestive heart failure presented to the hospital complaining of shortness of breath for the last 3 weeks. The patient stated that the shortness of breath was started about 3 weeks ago. Beside that she describes epigastric discomfort. She stated she developed bilateral lower extremities edema and she was seen by her primary care physician who put her on Lasix with improvement in the edema. The patient did not have any symptoms of chest pain or discomfort, dizziness or lightheadedness , or any syncope. She does have epigastric discomfort mainly. The EKG showed sinus rhythm with nonspecific changes in the inferior leads. There was also some ST and T wave abnormalities seems to be diffuse. Beside that the d-dimer came in to be abnormal and the patient is in process to have a CTA of the chest to rule out any PE. The BNP came in to be also severely abnormal and the patient was given Lasix IV in the emergency room. The first set of troponin also came in to be slightly abnormal. The patient underwent an emergent heart catheterization and that revealed severe triple-vessel coronary artery disease. She was seen and evaluated by cardiothoracic surgeon and the plan is to proceed with CABG this coming Wednesday. 01/28/2018 Patient seen and examined at bedside in ICU; family members at bedside; she denies any chest pain or shortness of breath; patient is continued on aspirin, metoprolol, Lasix and Aldactone; statins and lisinopril has been continued; echocardiogram showed impaired left ventricular function with ejection fraction of 25-30% 01/29/2018 Patient remains in ICU; sitting up in a chair and denies any chest pain or shortness of breath; overall patient seems to be doing better 01/30/2018 Patient remains in ICU and remains chest pain-free; patient relates that her swelling in both lower extremities is improved; she remains on Lasix and Aldactone Patient is scheduled for CABG in the morning 01/31/2018 Patient underwent quadruple bypass graft today currently intubated postoperatively. Pulmonary and CT surgery is following. Chest x-ray showed left lower lung atelectasis and possible postoperative changes. 02/01/2018 Patient is status post quadruple bypass graft. Patient was successfully weaned off of ventilator. Next and chest x-ray showed mild fluid overload. Otherwise patient is awake alert and lying in the bed comfortable.. Patient went to atrial fibrillation and was started on amiodarone. No fever no chills. No chest pain or worsening shortness of breath. Complete review of systems could not be apparent from the patient. Active Medications Generic Name Dose Route Start Last Admin Trade Name Freq PRN Reason Stop Dose Admin Hydrocodone Bitart/Acetaminophen 2 each 02/01/18 14:36 02/01/18 15:57 [place] 5-325 PO 2 each Q4HR PRN Administration Severe Pain Hydrocodone Bitart/Acetaminophen 1 each 02/01/18 14:36 [place] 5-325 PO Q4HR PRN Moderate Pain Albuterol/Ipratropium 3 ml 01/31/18 16:00 02/01/18 20:06 [place] 0.5 Mg-3 Mg/3 Ml Soln INHALATION Not Given RT-Q4H ERIN Albuterol/Ipratropium 3 ml 02/01/18 14:37 [place] 0.5 Mg-3 Mg/3 Ml Soln INHALATION RT-Q2H PRN Shortness Of Breath Or Wheezing Albuterol/Ipratropium 3 ml 02/01/18 14:37 02/01/18 20:06 [place] 0.5 Mg-3 Mg/3 Ml Soln INHALATION 3 ml RT-QID ERIN Administration Aspirin 325 mg 02/01/18 09:00 02/01/18 08:07 Aspirin PO 325 mg DAILY ERIN Administration Benzocaine/Menthol 1 each 01/31/18 14:43 Cepacol Lozenge MUCOUS MEM Q2H PRN Sore Throat Bisacodyl 10 mg 02/01/18 14:36 Dulcolax RECTAL DAILY PRN Constipation Clopidogrel Bisulfate 75 mg 02/01/18 09:00 02/01/18 08:07 Plavix PO 75 mg DAILY ERIN Administration Heparin Sodium (Porcine) 5,000 unit 02/01/18 00:00 02/01/18 23:32 Heparin SQ 5,000 unit Q8HR ERIN Administration Albumin Human 250 ml/ IV 250 mls @ 250 mls/hr 01/31/18 14:43 Solution IVPB 02/02/18 14:44 Q1HR PRN For Volume Clevidipine 25 mg/ IV Solution 50 mls @ 2 mls/hr 01/31/18 14:43 02/01/18 12: 08 IV 0 mg/hr .Q24H ERIN 0 mls/hr Protocol Titration 1 MG/HR Lactated Ringer's 1,000 mls @ 20 mls/hr 01/31/18 14:43 02/01/18 16:05 Lactated Ringers IV 20 mls/hr .Q24H ERIN Administration Amiodarone HCl 450 mg/ 259 mls @ 34.53 mls/hr 02/01/18 17:30 02/01/18 23:32 Dextrose/Water IV 02/02/18 17:31 0.5 mg/min .Q7H31M ERIN 17.26 mls/hr Protocol Titration 1 MG/MIN Insulin Aspart 0 unit 02/01/18 17:30 02/01/18 22:22 Novolog SQ 2 unit [id number] ERIN Administration Protocol Ketorolac Tromethamine 15 mg 02/01/18 12:15 02/01/18 23:31 Toradol IVP 02/05/18 12:06 15 mg Q6HR ERIN Administration Magnesium Hydroxide 2,400 mg 02/01/18 14:36 Milk Of Magnesia PO BID PRN Constipation Metoclopramide HCl 10 mg 01/31/18 14:43 Reglan IVP Q4H PRN Nausea And Vomiting Metoprolol Tartrate 25 mg 02/01/18 21:00 02/01/18 20:04 Lopressor PO 25 mg BID ERIN Administration Miscellaneous Information 1 each 01/31/18 14:43 Magnesium Per Protocol MISCELLANE DAILY PRN Per Protocol Protocol Miscellaneous Information 1 each 01/31/18 14:43 Phosphorus Per Protocol MISCELLANE DAILY PRN Per Protocol Protocol Miscellaneous Information 1 each 01/31/18 14:43 Potassium Per Protocol MISCELLANE DAILY PRN Per Protocol Protocol Morphine Sulfate 2 mg 01/31/18 14:43 02/01/18 13:51 Morphine Sulfate (Inj) IVP 2 mg Q2H PRN Administration Severe Pain Mupirocin 1 applic 01/31/18 21:00 02/01/18 20:03 Bactroban Oint NASAL 02/03/18 21:01 1 applic BID ERIN Administration Non-Formulary Drug ( 40 mg 01/27/18 21:00 02/01/18 20:03 Crestor 20 Mg Tablet PO 40 mg ) HS ERIN Administration Ondansetron HCl 4 mg 01/31/18 14:43 Zofran IVP Q6HR PRN Nausea And Vomiting Pantoprazole Sodium 40 mg 02/01/18 09:00 02/01/18 08:07 Protonix IVP 40 mg DAILY ERIN Administration Senna/Docusate Sodium 2 each 02/01/18 21:00 02/01/18 20:03 Senokot-S PO 2 each HS ERIN Administration Sodium Chloride 10 ml 01/31/18 21:00 02/01/18 20:06 Saline Flush IV 10 ml BID ERIN Administration Objective - Vital Signs Vital signs: Vital Signs Temp 98.3 F 02/01/18 20:00 Pulse 77 02/01/18 20:06 Resp 16 02/01/18 20:06 BP 94/52 02/01/18 20:00 Pulse Ox 96 02/01/18 20:00 Intake & Output 02/01/18 02/01/18 02/02/18 06:59 18:59 06:59 Intake Total 983.128 897.643 85.3 Output Total 787 1207 170 Balance 196.128 -309.357 -84.7 Weight 81.2 kg Intake: IV 688 586 52 CI/CO 60 40 Lactated Ringers 1,000 ml 550 450 40 @ 20 mls/hr IV .Q24H ERIN Rx#:[id number] pressure bag 78 96 12 Intake, IV Titration 295.128 311.643 33.3 Amount Amiodarone 450 mg In 33.3 33.3 Dextrose 5% in Water 250 ml @ 1 MG/MIN 34.53 mls/ hr IV .Q7H31M ERIN Rx#: [id number] Clevidipine Butyrate 25 130.2 28.433 mg In Empty Bag 1 bag @ 1 MG/HR 2 mls/hr IV .Q24H ERIN Rx#:[id number] Dextrose 5% in Water 100 100 ml @ 618 mls/hr IV .Q10M ONE with Amiodarone 150 mg Rx#:[id number] Insulin Regular 100 unit 32.558 9.675 In Sodium Chloride 0.9% 100 ml @ Per Protocol IV .Q0M ERIN Rx#:[id number] Milrinone-D5w Pmx 20 mg 87.692 In Dextrose/Water 1 100ml .bag @ Per Protocol IV . Q0M ERIN Rx#:[id number] Propofol 1,000 mg In 132.370 52.543 Empty Bag 1 bag @ Titrate IV .Q0M ERIN Rx#: [id number] Output: Chest Tube Drainage 162 137 135 Chest Tube Mediastinal 112 86 40 Left Pleural 33 50 70 Right Pleural 17 1 25 Drainage 80 65 Right Calf 80 65 Urine 545 1005 35 Other: Voiding Method Indwelling Catheter Indwelling Catheter Indwelling Catheter # Voids 0 # Bowel Movements 0 ABP, PAP, CO, CI - Last Documented Arterial Blood Pressure 103/45 Pulmonary Artery Pressure 51/26 Cardiac Output 5.4 Cardiac Index 3.0 - Exam PHYSICAL EXAMINATION: Patient is lying in the bed comfortably, no acute distress, awake alert but seems to be lethargic and drowsy HEENT: Normocephalic. Neck is supple. Pupils reactive. Nostrils clear. Oral cavity is moist. Ears reveal no drainage. Neck reveals no JVD, carotid bruits, or thyromegaly. CHEST EXAMINATION: Trachea is central. Symmetrical expansion. Lung almanzar clear to auscultation and percussion. CARDIAC: Normal S1, S2 with no gallops. No murmurs ABDOMEN: Soft. Bowel sounds normal. No organomegaly. No abdominal bruits. Extremities: reveal no edema. No clubbing or cyanosis Neurologically awake alert. No focal deficits noted Skin: No rash or skin lesions. Psychiatric: Could not be assessed completely Musculoskeletal: No joint swelling or deformity. Normal range of motion. - Labs CBC & Chem 7: 02/01/18 03:10 02/01/18 16:10 Labs: Abnormal Lab Results - Last 24 Hours (Table) 01/30/18 01/31/18 01/31/18 Range/Units 04:37 23:17 23:19 RBC (3.80-5.40) m/uL Hgb (11.4-16.0) gm/dL Hct (34.0-46.0) % Plt Count (150-450) k/uL Neutrophils # (1.3-7.7) k/uL Lymphocytes # (1.0-4.8) k/uL INR (<1.2) ABG pO2 (83-108) mmHg ABG O2 Saturation (94-97) % Chloride (98-107) mmol/L BUN (7-17) mg/dL POC Glucose (mg/dL) 64 L 142 H (75-99) mg/dL Calcium (8.4-10.2) mg/dL Magnesium (1.6-2.3) mg/dL Alkaline Phosphatase (38-126) U/L Total Protein (6.3-8.2) g/dL Albumin (3.5-5.0) g/dL Crossmatch See Detail 02/01/18 02/01/18 02/01/18 Range/Units 00:09 01:16 02:26 RBC (3.80-5.40) m/uL Hgb (11.4-16.0) gm/dL Hct (34.0-46.0) % Plt Count (150-450) k/uL Neutrophils # (1.3-7.7) k/uL Lymphocytes # (1.0-4.8) k/uL INR (<1.2) ABG pO2 (83-108) mmHg ABG O2 Saturation (94-97) % Chloride (98-107) mmol/L BUN (7-17) mg/dL POC Glucose (mg/dL) 144 H 125 H 126 H (75-99) mg/dL Calcium (8.4-10.2) mg/dL Magnesium (1.6-2.3) mg/dL Alkaline Phosphatase (38-126) U/L Total Protein (6.3-8.2) g/dL Albumin (3.5-5.0) g/dL Crossmatch 02/01/18 02/01/18 02/01/18 Range/Units 03:10 03:10 03:10 RBC 2.37 L (3.80-5.40) m/uL Hgb 7.1 L (11.4-16.0) gm/dL Hct 22.3 L (34.0-46.0) % Plt Count 115 L (150-450) k/uL Neutrophils # 9.3 H (1.3-7.7) k/uL Lymphocytes # 0.4 L (1.0-4.8) k/uL INR 1.2 H (<1.2) ABG pO2 (83-108) mmHg ABG O2 Saturation (94-97) % Chloride 108 H (98-107) mmol/L BUN 20 H (7-17) mg/dL POC Glucose (mg/dL) (75-99) mg/dL Calcium 8.2 L (8.4-10.2) mg/dL Magnesium 2.8 H (1.6-2.3) mg/dL Alkaline Phosphatase 26 L (38-126) U/L Total Protein 4.8 L (6.3-8.2) g/dL Albumin 3.2 L (3.5-5.0) g/dL Crossmatch 02/01/18 02/01/18 02/01/18 Range/Units 03:18 04:50 04:55 RBC (3.80-5.40) m/uL Hgb (11.4-16.0) gm/dL Hct (34.0-46.0) % Plt Count (150-450) k/uL Neutrophils # (1.3-7.7) k/uL Lymphocytes # (1.0-4.8) k/uL INR (<1.2) ABG pO2 (83-108) mmHg ABG O2 Saturation 99.7 H (94-97) % Chloride (98-107) mmol/L BUN (7-17) mg/dL POC Glucose (mg/dL) 109 H 120 H (75-99) mg/dL Calcium (8.4-10.2) mg/dL Magnesium (1.6-2.3) mg/dL Alkaline Phosphatase (38-126) U/L Total Protein (6.3-8.2) g/dL Albumin (3.5-5.0) g/dL Crossmatch 02/01/18 02/01/18 02/01/18 Range/Units 06:04 06:54 08:15 RBC (3.80-5.40) m/uL Hgb (11.4-16.0) gm/dL Hct (34.0-46.0) % Plt Count (150-450) k/uL Neutrophils # (1.3-7.7) k/uL Lymphocytes # (1.0-4.8) k/uL INR (<1.2) ABG pO2 (83-108) mmHg ABG O2 Saturation (94-97) % Chloride (98-107) mmol/L BUN (7-17) mg/dL POC Glucose (mg/dL) 146 H 149 H 152 H (75-99) mg/dL Calcium (8.4-10.2) mg/dL Magnesium (1.6-2.3) mg/dL Alkaline Phosphatase (38-126) U/L Total Protein (6.3-8.2) g/dL Albumin (3.5-5.0) g/dL Crossmatch 02/01/18 02/01/18 02/01/18 Range/Units 09:14 10:31 10:42 RBC (3.80-5.40) m/uL Hgb (11.4-16.0) gm/dL Hct (34.0-46.0) % Plt Count (150-450) k/uL Neutrophils # (1.3-7.7) k/uL Lymphocytes # (1.0-4.8) k/uL INR (<1.2) ABG pO2 70 L (83-108) mmHg ABG O2 Saturation (94-97) % Chloride (98-107) mmol/L BUN (7-17) mg/dL POC Glucose (mg/dL) 141 H 143 H (75-99) mg/dL Calcium (8.4-10.2) mg/dL Magnesium (1.6-2.3) mg/dL Alkaline Phosphatase (38-126) U/L Total Protein (6.3-8.2) g/dL Albumin (3.5-5.0) g/dL Crossmatch 02/01/18 02/01/18 02/01/18 Range/Units 12:05 13:03 14:20 RBC (3.80-5.40) m/uL Hgb (11.4-16.0) gm/dL Hct (34.0-46.0) % Plt Count (150-450) k/uL Neutrophils # (1.3-7.7) k/uL Lymphocytes # (1.0-4.8) k/uL INR (<1.2) ABG pO2 (83-108) mmHg ABG O2 Saturation (94-97) % Chloride (98-107) mmol/L BUN (7-17) mg/dL POC Glucose (mg/dL) 126 H 120 H 116 H (75-99) mg/dL Calcium (8.4-10.2) mg/dL Magnesium (1.6-2.3) mg/dL Alkaline Phosphatase (38-126) U/L Total Protein (6.3-8.2) g/dL Albumin (3.5-5.0) g/dL Crossmatch 02/01/18 02/01/18 02/01/18 Range/Units 16:02 16:10 17:33 RBC (3.80-5.40) m/uL Hgb (11.4-16.0) gm/dL Hct (34.0-46.0) % Plt Count (150-450) k/uL Neutrophils # (1.3-7.7) k/uL Lymphocytes # (1.0-4.8) k/uL INR (<1.2) ABG pO2 (83-108) mmHg ABG O2 Saturation (94-97) % Chloride (98-107) mmol/L BUN (7-17) mg/dL POC Glucose (mg/dL) 116 H 120 H (75-99) mg/dL Calcium (8.4-10.2) mg/dL Magnesium 2.7 H (1.6-2.3) mg/dL Alkaline Phosphatase (38-126) U/L Total Protein (6.3-8.2) g/dL Albumin (3.5-5.0) g/dL Crossmatch 02/01/18 Range/Units 22:18 RBC (3.80-5.40) m/uL Hgb (11.4-16.0) gm/dL Hct (34.0-46.0) % Plt Count (150-450) k/uL Neutrophils # (1.3-7.7) k/uL Lymphocytes # (1.0-4.8) k/uL INR (<1.2) ABG pO2 (83-108) mmHg ABG O2 Saturation (94-97) % Chloride (98-107) mmol/L BUN (7-17) mg/dL POC Glucose (mg/dL) 179 H (75-99) mg/dL Calcium (8.4-10.2) mg/dL Magnesium (1.6-2.3) mg/dL Alkaline Phosphatase (38-126) U/L Total Protein (6.3-8.2) g/dL Albumin (3.5-5.0) g/dL Crossmatch Microbiology - Last 24 Hours (Table) 01/27/18 10:50 Blood Culture - Preliminary Blood No Growth after 120 hours Assessment and Plan Assessment: Acute non-ST elevated NE. Status post Cardiac catheterization showed triple- vessel disease. Status post quadruple bypass graft on 01/31/2018 Exertional shortness of breath for 2 weeks prior to admission Acute CHF with systolic dysfunction Severe ischemic cardio myopathy Leukocytosis. Likely reactive. Hypertension hyperlipidemia Obesity DVT prophylaxis Plan: Continue with the aspirin statins and metoprolol and lisinopril and Aldactone. Cardiology and cardiac surgery is following. We'll continue to monitor renal function. Follow-up CBC and BMP tomorrow. Continue to monitor the patient in ICU. Further recommendations based on the clinical course. Time with Patient: Greater than 30
[2018-02-02] MEDS: IPRATROPIUM-ALBUTEROL 3 ML NEB INHALATION SCH ×5 (01:05→19:56)
[2018-02-02] MEDS ORDERED: FUROSEMIDE 10 MG/ML 2 ML VIAL IV STA (01:11)
[2018-02-02 01:57] LABS: Glucose,Whole Blood 135 mg/dL (75-99)
[2018-02-02] MEDS: AMIODARONE 450 MG in DEXTROSE 5% IN WATER 250 ML IV SCH ×6 (02:15→16:32)
[2018-02-02] MEDS: INSULIN ASPART 100 UNIT/ML 1 ML 10 ML VIAL SQ SCH ×5 (02:15→21:04)
[2018-02-02 04:23] LABS: Basophils % (A) 0 %; Eosinophils # (A) 0.1 k/uL (0-0.7); Eosinophils % (A) 1 %; HCT 24.6 % (34.0-46.0); HGB 7.7 gm/dL (11.4-16.0); Hypochromasia Slight; Lymphocytes % (A) 7 %; MCH 30.1 pg (25.0-35.0); MCHC 31.5 g/dL (31.0-37.0); MCV 95.6 fL (80.0-100.0); Monocytes # (A) 0.8 k/uL (0-1.0); Monocytes % (A) 6 %; Neutrophils # (A) 12.6 k/uL (1.3-7.7); Neutrophils % (A) 86 %; Platelet Count 135 k/uL (150-450); RBC 2.57 m/uL (3.80-5.40); RDW 15.5 % (11.5-15.5); WBC 14.7 k/uL (3.8-10.6)
[2018-02-02 04:27] LABS: Ionized Calcium 4.8 mg/dL (4.5-5.3)
[2018-02-02 04:37] LABS: Albumin 3.3 g/dL (3.5-5.0); Calcium 8.3 mg/dL (8.4-10.2); Potassium 5.6 mmol/L (3.5-5.1); Total Protein 5.1 g/dL (6.3-8.2)
[2018-02-02] MEDS ORDERED: DOPamine DRIP 800 MG in DEXTROSE/WATER 1 500ML.BAG IV SCH ×2 (05:15→19:15)
[2018-02-02] MEDS ORDERED: FUROSEMIDE 10 MG/ML 10 ML VIAL IV STA (05:15)
[2018-02-02] MEDS ORDERED: FUROSEMIDE 10 MG/ML 4 ML VIAL ONE (06:04)
[2018-02-02] MEDS: HYDROcodone/APAP 5-325MG 1 EACH TAB PO PRN ×2 (06:39→16:31)
[2018-02-02 07:48] LABS: Glucose,Whole Blood 118 mg/dL (75-99)
[2018-02-02] MEDS ORDERED: DEXTROSE 50%-WATER 50 ML SYRINGE IVP STA (07:58)
[2018-02-02] MEDS ORDERED: INSULIN REGULAR 100 UNIT/ML VIAL IV ONE (07:58)
--- NOTE | 2018-02-02 08:21 | P.PN ---
Subjective Progress Note Date: 02/02/18 Principal diagnosis: Severe ischemic cardiomyopathy with EF 25-30%, left main disease, non-ST elevation myocardial infarction, acute on chronic systolic heart failure, hypertension, hyperlipidemia, mild mitral valve regurgitation, evidence of remote old inferior wall myocardial infarction. History of gout, recent pneumonia, syncope 2 years ago, previous tobacco dependence with preoperative FEV1 65%. Obesity. POD #2 urgent coronary artery bypass grafting 4 using the left internal mammary artery to the mid left anterior descending artery, reverse saphenous vein graft from the aorta to the diagonal artery, reverse saphenous vein graft from the aorta to the first obtuse marginal artery, reverse saphenous vein graft from the aorta to the posterior descending artery. Endoscopic harvesting of the right greater saphenous vein. Intraoperative transesophageal echocardiogram and epi-aortic scanning. Intraoperative graft flow measurements using the [employer] system. Postoperative acute elevation of transaminases, an unexpected but potential outcome of surgery. Postoperative atrial fibrillation, an expected outcome of surgery. Patient is currently sitting up in the recliner in no acute distress. Does complain of nausea after oral pain medication given. Was successfully extubated yesterday at 11:07 AM. Her urine output did drop and she was started on low-dose dopamine. She did have an episode of A. fib with RVR and was started on IV amiodarone. Her AST and ALT did elevate as well as her creatinine. Objective - Vital Signs Vital signs: Vital Signs Temp 98.3 F 02/02/18 04:00 Pulse 62 02/02/18 07:16 Resp 14 02/02/18 07:16 BP 84/48 02/02/18 06:00 Pulse Ox 91 L 02/02/18 07:02 Intake & Output 02/01/18 02/02/18 02/02/18 18:59 06:59 18:59 Intake Total 897.643 988.823 Output Total 1207 555 Balance -309.357 433.823 Intake: IV 586 338 CI/CO 40 Lactated Ringers 1,000 ml 450 260 @ 20 mls/hr IV .Q24H ERIN Rx#:[id number] pressure bag 96 78 Intake, IV Titration 311.643 290.823 Amount Amiodarone 450 mg In 33.3 290.823 Dextrose 5% in Water 250 ml @ 1 MG/MIN 34.53 mls/ hr IV .Q7H31M ERIN Rx#: [id number] Clevidipine Butyrate 25 28.433 mg In Empty Bag 1 bag @ 1 MG/HR 2 mls/hr IV .Q24H ERIN Rx#:[id number] Dextrose 5% in Water 100 100 ml @ 618 mls/hr IV .Q10M ONE with Amiodarone 150 mg Rx#:[id number] Insulin Regular 100 unit 9.675 In Sodium Chloride 0.9% 100 ml @ Per Protocol IV .Q0M ERIN Rx#:[id number] Milrinone-D5w Pmx 20 mg 87.692 In Dextrose/Water 1 100ml .bag @ Per Protocol IV . Q0M ERIN Rx#:[id number] Propofol 1,000 mg In 52.543 Empty Bag 1 bag @ Titrate IV .Q0M ERIN Rx#: [id number] Oral 360 Output: Chest Tube Drainage 137 260 Chest Tube Mediastinal 86 50 Left Pleural 50 145 Right Pleural 1 65 Drainage 65 70 Right Calf 65 70 Urine 1005 225 Other: Voiding Method Indwelling Catheter Indwelling Catheter # Voids 0 # Bowel Movements 0 ABP, PAP, CO, CI - Last Documented Arterial Blood Pressure 105/47 Pulmonary Artery Pressure 51/26 Cardiac Output 5.4 Cardiac Index 3.0 - Constitutional General appearance: Present: cooperative, no acute distress, obese - Respiratory Details: Lungs sounds diminished bilaterally. Respirations even, nonlabored. Currently 95% oxygen saturation on 100% nonrebreather. Weak cough. Mediastinal chest tube to continuous wall suction, 10 mL serosanguineous drainage overnight, 140 mL in the last 24 hours. Left pleural chest tube to continuous wall suction, 65 mL serosanguineous drainage overnight, 200 mL in the last 24 hours. Right pleural chest tube to continuous wall suction, 40 mL serosanguineous drainage overnight, 80 mL in the last 24 hours. No air leaks present. - Cardiovascular Details: S1, S2 present. Regular rate and rhythm, sinus rhythm on telemetry. A/V epicardial pacemaker wires present, grounded. Sternum stable. Palpable peripheral pulses bilaterally. Bilateral upper extremity edema present. Right internal jugular Cordis, left radial arterial line present. Currently on dopamine at 2 mics and amiodarone at 0.5 milligram. - Gastrointestinal Gastrointestinal Comment(s): Abdomen soft, nontender, nondistended. Hypoactive bowel sounds present 4 quadrants. Tolerating clear liquids. No flatus yet. - Genitourinary Genitourinary Comment(s): [place] present draining clear, yellow urine. Output 5-25 mL per hour overnight despite IV Lasix, was started on renal dose dopamine this morning, urine output last 3 hours was 10 mL/h. She did have 700 mL output after Lasix given yesterday morning. - Integumentary Integumentary Comment(s): Skin is warm and dry with evidence of good perfusion. Anterior chest incision well approximated and covered with dry intact dressing. Right lower extremity EVH site well approximated, ELICEO drain present with minimal serosanguineous drainage. - Neurologic Neurologic: Present: CNII-XII intact - Musculoskeletal Musculoskeletal: Present: generalized weakness - Psychiatric Psychiatric: Present: A&O x's 3, appropriate affect, intact judgment & insight - Allied health notes Allied health notes reviewed: nursing - Labs CBC & Chem 7: 02/02/18 04:05 02/02/18 04:05 Labs: Abnormal Lab Results - Last 24 Hours (Table) 02/01/18 02/01/18 02/01/18 Range/Units 08:15 09:14 10:31 WBC (3.8-10.6) k/uL RBC (3.80-5.40) m/uL Hgb (11.4-16.0) gm/dL Hct (34.0-46.0) % Plt Count (150-450) k/uL Neutrophils # (1.3-7.7) k/uL ABG pO2 (83-108) mmHg Potassium (3.5-5.1) mmol/L Carbon Dioxide (22-30) mmol/L BUN (7-17) mg/dL Creatinine (0.52-1.04) mg/dL Glucose (74-99) mg/dL POC Glucose (mg/dL) 152 H 141 H 143 H (75-99) mg/dL Calcium (8.4-10.2) mg/dL Magnesium (1.6-2.3) mg/dL AST (14-36) U/L ALT (9-52) U/L Total Protein (6.3-8.2) g/dL Albumin (3.5-5.0) g/dL 02/01/18 02/01/18 02/01/18 Range/Units 10:42 12:05 13:03 WBC (3.8-10.6) k/uL RBC (3.80-5.40) m/uL Hgb (11.4-16.0) gm/dL Hct (34.0-46.0) % Plt Count (150-450) k/uL Neutrophils # (1.3-7.7) k/uL ABG pO2 70 L (83-108) mmHg Potassium (3.5-5.1) mmol/L Carbon Dioxide (22-30) mmol/L BUN (7-17) mg/dL Creatinine (0.52-1.04) mg/dL Glucose (74-99) mg/dL POC Glucose (mg/dL) 126 H 120 H (75-99) mg/dL Calcium (8.4-10.2) mg/dL Magnesium (1.6-2.3) mg/dL AST (14-36) U/L ALT (9-52) U/L Total Protein (6.3-8.2) g/dL Albumin (3.5-5.0) g/dL 02/01/18 02/01/18 02/01/18 Range/Units 14:20 16:02 16:10 WBC (3.8-10.6) k/uL RBC (3.80-5.40) m/uL Hgb (11.4-16.0) gm/dL Hct (34.0-46.0) % Plt Count (150-450) k/uL Neutrophils # (1.3-7.7) k/uL ABG pO2 (83-108) mmHg Potassium (3.5-5.1) mmol/L Carbon Dioxide (22-30) mmol/L BUN (7-17) mg/dL Creatinine (0.52-1.04) mg/dL Glucose (74-99) mg/dL POC Glucose (mg/dL) 116 H 116 H (75-99) mg/dL Calcium (8.4-10.2) mg/dL Magnesium 2.7 H (1.6-2.3) mg/dL AST (14-36) U/L ALT (9-52) U/L Total Protein (6.3-8.2) g/dL Albumin (3.5-5.0) g/dL 02/01/18 02/01/18 02/02/18 Range/Units 17:33 22:18 01:55 WBC (3.8-10.6) k/uL RBC (3.80-5.40) m/uL Hgb (11.4-16.0) gm/dL Hct (34.0-46.0) % Plt Count (150-450) k/uL Neutrophils # (1.3-7.7) k/uL ABG pO2 (83-108) mmHg Potassium (3.5-5.1) mmol/L Carbon Dioxide (22-30) mmol/L BUN (7-17) mg/dL Creatinine (0.52-1.04) mg/dL Glucose (74-99) mg/dL POC Glucose (mg/dL) 120 H 179 H 135 H (75-99) mg/dL Calcium (8.4-10.2) mg/dL Magnesium (1.6-2.3) mg/dL AST (14-36) U/L ALT (9-52) U/L Total Protein (6.3-8.2) g/dL Albumin (3.5-5.0) g/dL 02/02/18 02/02/18 02/02/18 Range/Units 04:05 04:05 07:47 WBC 14.7 H (3.8-10.6) k/uL RBC 2.57 L (3.80-5.40) m/uL Hgb 7.7 L (11.4-16.0) gm/dL Hct 24.6 L (34.0-46.0) % Plt Count 135 L (150-450) k/uL Neutrophils # 12.6 H (1.3-7.7) k/uL ABG pO2 (83-108) mmHg Potassium 5.6 H (3.5-5.1) mmol/L Carbon Dioxide 21 L (22-30) mmol/L BUN 28 H (7-17) mg/dL Creatinine 2.00 H (0.52-1.04) mg/dL Glucose 122 H (74-99) mg/dL POC Glucose (mg/dL) 118 H (75-99) mg/dL Calcium 8.3 L (8.4-10.2) mg/dL Magnesium 3.0 H (1.6-2.3) mg/dL AST 627 H (14-36) U/L ALT 338 H (9-52) U/L Total Protein 5.1 L (6.3-8.2) g/dL Albumin 3.3 L (3.5-5.0) g/dL Microbiology - Last 24 Hours (Table) 01/27/18 10:50 Blood Culture - Preliminary Blood No Growth after 120 hours - Imaging and Cardiology Chest x-ray: image reviewed Assessment and Plan (1) Left main coronary artery disease Current Visit: Yes Status: Chronic Code(s): I25.10 - ATHSCL HEART DISEASE OF [place] CORONARY ARTERY W/O ANG PCTRS SNOMED Code(s): 505652375 (2) Acute on chronic systolic heart failure Current Visit: Yes Status: Acute Code(s): I50.23 - ACUTE ON CHRONIC SYSTOLIC (CONGESTIVE) HEART FAILURE SNOMED Code(s): 572276654 (3) History of myocardial infarction Current Visit: No Status: Resolved Code(s): I25.2 - OLD MYOCARDIAL INFARCTION SNOMED Code(s): 026204974 (4) History of gout Current Visit: Yes Status: Chronic Code(s): Z87.39 - PERSONAL HISTORY OF DISEASES OF THE MS SYS AND CONN TISS SNOMED Code(s): 461570923 (5) Tobacco dependence in remission Current Visit: No Status: Resolved Code(s): F17.201 - NICOTINE DEPENDENCE, UNSPECIFIED, IN REMISSION SNOMED Code(s): 538686500 (6) Coronary artery disease Current Visit: Yes Status: Chronic Code(s): I25.10 - ATHSCL HEART DISEASE OF [place] CORONARY ARTERY W/O ANG PCTRS SNOMED Code(s): 83654529 (7) Hyperlipidemia Current Visit: Yes Status: Chronic Code(s): E78.5 - HYPERLIPIDEMIA, UNSPECIFIED SNOMED Code(s): 04405285 (8) Hypertension Current Visit: Yes Status: Chronic Code(s): I10 - ESSENTIAL (PRIMARY) HYPERTENSION SNOMED Code(s): 71954051 (9) Ischemic cardiomyopathy Current Visit: Yes Status: Chronic Code(s): I25.5 - ISCHEMIC CARDIOMYOPATHY SNOMED Code(s): 899960156 (10) NSTEMI (non-ST elevated myocardial infarction) Current Visit: Yes Status: Acute Code(s): I21.4 - NON-ST ELEVATION (NSTEMI) MYOCARDIAL INFARCTION SNOMED Code(s): 942015654 Plan: 1. Continue aspirin, Plavix, subcu heparin, beta saw. Will decrease Lopressor 12.5 mg twice daily. Will hold Crestor for now secondary to elevated AST, ALT. 2. Continue renal dose dopamine. Added Lasix IV at 10 mg/hour. 3. Will give D50 and insulin for elevated potassium. 4. Dr. Martinez consulted for acute kidney injury. 5. Wean oxygen as tolerated. Encourage incentive spirometry use 10 times every hour. 6. Continue IV amiodarone for A. fib prophylaxis. 7. Will discontinue mediastinal and right pleural chest tube today. 8. Will monitor daily labs and x-rays. 9. GI/DVT prophylaxis. 10. Insulin drip/diabetic management per primary care physician. 11. Increase activity, out of bed to chair, ambulate as tolerated. PT/OT/ cardiac rehab following. 12. More recommendations to follow. Time with Patient: Greater than 30
--- NOTE | 2018-02-02 08:37 | XR ---
EXAMINATION TYPE: XR chest 1V portable DATE OF EXAM: 02/02/2018 COMPARISON: Prior chest 02/01/2018 HISTORY: Status post cardiac surgery, chest tubes TECHNIQUE: Single frontal view of the chest is obtained. FINDINGS: There is been interval removal of endotracheal and NG tube. Median sternal drain, bilatera l chest tubes, right jugular central venous sheath remain in place, central venous catheter has been removed. There are overlying cardiac leads. No evident pneumothorax. Heart remains enlarged. Pleural parenchymal changes are similar to prior exam. IMPRESSION: Interval extubation.
[2018-02-02] MEDS: FUROSEMIDE 250 MG in SODIUM CHLORIDE 0.9% 225 ML IVP SCH ×2 (08:38→23:39)
[2018-02-02] MEDS: HEPARIN SODIUM,PORCINE 5,000 UNIT/ML 1 ML VIAL SQ SCH ×3 (09:04→23:39)
[2018-02-02] MEDS: CLOPIDOGREL 75 MG TAB PO SCH (09:05)
[2018-02-02] MEDS: PANTOPRAZOLE 40 MG/10 ML VIAL IVP SCH (09:05)
[2018-02-02] MEDS: ASPIRIN 325 MG TAB PO SCH (09:05)
[2018-02-02] MEDS: MUPIROCIN 2% OINT 22 GM TUBE NASAL SCH ×2 (09:05→21:03)
--- NOTE | 2018-02-02 09:52 | P.PN ---
Subjective Progress Note Date: 02/02/18 Principal diagnosis: Bypass grafting Progress note dated 01/31/2018 This is a 72-year-old female with multiple medical problems including hypertension hyperlipidemia extrinsic ALLERGIC alveolitis as well as coronary artery disease. The patient's going to the operating room today for a bypass grafting. She's been seen by my partner for the last couple of days. She did have a CT angiogram that was negative for pulmonary embolism. When she was seen yesterday, she was doing well and she was asymptomatic. No chest pain no shortness of breath and difficulty breathing. No coughing or wheezing. Labs were in order. This morning, prior to surgery the patient still doing well. No major issues or problems. 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 Progress note dated 02/01/2018 This is a 72-year-old female who is postop day #1 status post four-vessel bypass grafting. The patient's currently on the mechanical ventilator. Her current vent settings are the assist control mode rate of 24, tidal volume of 400 she is on a FiO2 50% with a PEEP of 5. Arterial blood gases show a PaO2 of 85 a PaCO2 40 and a pH of 7.35. The patient is currently on propofol at 20 mics per kilogram per minute, Primacor at 0.2 mics per kilogram per minute, insulin drip at 2 units per hour, and Cleviprex at 2 mg an hour. The patient's IV is lactated Ringer's at 50 mL an hour. According to cardiothoracic administrative assistant receptionist , the patient can be weaned at this time. Chest x-ray show some mild fluid overload. The patient otherwise is stable. Even on a small amount of propofol , her mental status is reasonable. We'll wean that off and start the process. She has a history of non-ST segment elevation myocardial infarction, severe triple-vessel coronary artery disease, ischemic cardiomyopathy, systolic heart failure, hypertension, hyperlipidemia, extrinsic ALLERGIC alveolitis and COPD from previous heavy tobacco use. Progress note dated 02/02/2018 72-year-old female postop day #2, status post four-vessel bypass grafting. She was extubated yesterday on Minerva 10. Currently, she is on a nonrebreather mask. In addition, she is on dopamine at 2 mcg/kg/m, a Lasix drip at 10 mg an hour, amiodarone at 0.5 mg/m and lactated Ringer's at 20 mL an hour. Chest x- ray shows just some mild fluid overload. The patient otherwise looks relatively weak. The patient seemed a little sleepy and lethargic. Does not really take in deep breaths. Chest x-ray though does not look horrible. 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 The patient's oxygen requirements have gone up since extubation, initially she was on 6 L by nasal cannula and is now on a nonrebreather. She may benefit from BiPAP therapy to help rest her. Objective - Vital Signs Vital signs: Vital Signs Temp 97.5 F L 02/02/18 08:00 Pulse 64 02/02/18 09:00 Resp 14 02/02/18 07:16 BP 97/42 02/02/18 07:00 Pulse Ox 95 02/02/18 09:00 Intake & Output 02/01/18 02/02/18 02/02/18 18:59 06:59 18:59 Intake Total 897.643 988.823 169.943 Output Total 1207 555 105 Balance -309.357 433.823 64.943 Intake: IV 586 338 52 CI/CO 40 Lactated Ringers 1,000 ml 450 260 40 @ 20 mls/hr IV .Q24H ERIN Rx#:[id number] pressure bag 96 78 12 Intake, IV Titration 311.643 290.823 117.943 Amount Amiodarone 450 mg In 33.3 290.823 117.943 Dextrose 5% in Water 250 ml @ 1 MG/MIN 34.53 mls/ hr IV .Q7H31M ERIN Rx#: [id number] Clevidipine Butyrate 25 28.433 mg In Empty Bag 1 bag @ 1 MG/HR 2 mls/hr IV .Q24H ERIN Rx#:[id number] Dextrose 5% in Water 100 100 ml @ 618 mls/hr IV .Q10M ONE with Amiodarone 150 mg Rx#:[id number] Insulin Regular 100 unit 9.675 In Sodium Chloride 0.9% 100 ml @ Per Protocol IV .Q0M ERIN Rx#:[id number] Milrinone-D5w Pmx 20 mg 87.692 In Dextrose/Water 1 100ml .bag @ Per Protocol IV . Q0M ERIN Rx#:[id number] Propofol 1,000 mg In 52.543 Empty Bag 1 bag @ Titrate IV .Q0M ERIN Rx#: [id number] Oral 360 Output: Chest Tube Drainage 137 260 70 Chest Tube Mediastinal 86 50 10 Left Pleural 50 145 0 Right Pleural 1 65 60 Drainage 65 70 Right Calf 65 70 Urine 1005 225 35 Other: Voiding Method Indwelling Catheter Indwelling Catheter # Voids 0 # Bowel Movements 0 ABP, PAP, CO, CI - Last Documented Arterial Blood Pressure 99/40 Pulmonary Artery Pressure 51/26 Cardiac Output 5.4 Cardiac Index 3.0 - Exam No acute distress, non-rebreather mask in place. The patient's arouses but is a bit sleepy. HEENT examination is grossly unremarkable. Mucous membranes are moist. Neck supple. Full range of motion. No adenopathy thyromegaly or neck vein distention. Cardiovascular examination reveals regular rhythm rate. S1-S2 normal. No S3 or S4. No discernible murmur noted. Lungs reveal diffuse bilateral rhonchi. Breath sounds are equal bilaterally. No wheezes. No crackles. Abdomen soft bowel sounds are heard. No masses or tenderness. Extremities are intact. No cyanosis clubbing or edema. Skin is without rash or lesion. Neurologic examination appears to be relatively normal. - Labs CBC & Chem 7: 02/02/18 04:05 02/02/18 04:05 Labs: Abnormal Lab Results - Last 24 Hours (Table) 02/01/18 02/01/18 02/01/18 Range/Units 10:31 10:42 12:05 WBC (3.8-10.6) k/uL RBC (3.80-5.40) m/uL Hgb (11.4-16.0) gm/dL Hct (34.0-46.0) % Plt Count (150-450) k/uL Neutrophils # (1.3-7.7) k/uL ABG pO2 70 L (83-108) mmHg Potassium (3.5-5.1) mmol/L Carbon Dioxide (22-30) mmol/L BUN (7-17) mg/dL Creatinine (0.52-1.04) mg/dL Glucose (74-99) mg/dL POC Glucose (mg/dL) 143 H 126 H (75-99) mg/dL Calcium (8.4-10.2) mg/dL Magnesium (1.6-2.3) mg/dL AST (14-36) U/L ALT (9-52) U/L Total Protein (6.3-8.2) g/dL Albumin (3.5-5.0) g/dL 02/01/18 02/01/18 02/01/18 Range/Units 13:03 14:20 16:02 WBC (3.8-10.6) k/uL RBC (3.80-5.40) m/uL Hgb (11.4-16.0) gm/dL Hct (34.0-46.0) % Plt Count (150-450) k/uL Neutrophils # (1.3-7.7) k/uL ABG pO2 (83-108) mmHg Potassium (3.5-5.1) mmol/L Carbon Dioxide (22-30) mmol/L BUN (7-17) mg/dL Creatinine (0.52-1.04) mg/dL Glucose (74-99) mg/dL POC Glucose (mg/dL) 120 H 116 H 116 H (75-99) mg/dL Calcium (8.4-10.2) mg/dL Magnesium (1.6-2.3) mg/dL AST (14-36) U/L ALT (9-52) U/L Total Protein (6.3-8.2) g/dL Albumin (3.5-5.0) g/dL 02/01/18 02/01/18 02/01/18 Range/Units 16:10 17:33 22:18 WBC (3.8-10.6) k/uL RBC (3.80-5.40) m/uL Hgb (11.4-16.0) gm/dL Hct (34.0-46.0) % Plt Count (150-450) k/uL Neutrophils # (1.3-7.7) k/uL ABG pO2 (83-108) mmHg Potassium (3.5-5.1) mmol/L Carbon Dioxide (22-30) mmol/L BUN (7-17) mg/dL Creatinine (0.52-1.04) mg/dL Glucose (74-99) mg/dL POC Glucose (mg/dL) 120 H 179 H (75-99) mg/dL Calcium (8.4-10.2) mg/dL Magnesium 2.7 H (1.6-2.3) mg/dL AST (14-36) U/L ALT (9-52) U/L Total Protein (6.3-8.2) g/dL Albumin (3.5-5.0) g/dL 02/02/18 02/02/18 02/02/18 Range/Units 01:55 04:05 04:05 WBC 14.7 H (3.8-10.6) k/uL RBC 2.57 L (3.80-5.40) m/uL Hgb 7.7 L (11.4-16.0) gm/dL Hct 24.6 L (34.0-46.0) % Plt Count 135 L (150-450) k/uL Neutrophils # 12.6 H (1.3-7.7) k/uL ABG pO2 (83-108) mmHg Potassium 5.6 H (3.5-5.1) mmol/L Carbon Dioxide 21 L (22-30) mmol/L BUN 28 H (7-17) mg/dL Creatinine 2.00 H (0.52-1.04) mg/dL Glucose 122 H (74-99) mg/dL POC Glucose (mg/dL) 135 H (75-99) mg/dL Calcium 8.3 L (8.4-10.2) mg/dL Magnesium 3.0 H (1.6-2.3) mg/dL AST 627 H (14-36) U/L ALT 338 H (9-52) U/L Total Protein 5.1 L (6.3-8.2) g/dL Albumin 3.3 L (3.5-5.0) g/dL 02/02/18 Range/Units 07:47 WBC (3.8-10.6) k/uL RBC (3.80-5.40) m/uL Hgb (11.4-16.0) gm/dL Hct (34.0-46.0) % Plt Count (150-450) k/uL Neutrophils # (1.3-7.7) k/uL ABG pO2 (83-108) mmHg Potassium (3.5-5.1) mmol/L Carbon Dioxide (22-30) mmol/L BUN (7-17) mg/dL Creatinine (0.52-1.04) mg/dL Glucose (74-99) mg/dL POC Glucose (mg/dL) 118 H (75-99) mg/dL Calcium (8.4-10.2) mg/dL Magnesium (1.6-2.3) mg/dL AST (14-36) U/L ALT (9-52) U/L Total Protein (6.3-8.2) g/dL Albumin (3.5-5.0) g/dL Microbiology - Last 24 Hours (Table) 01/27/18 10:50 Blood Culture - Preliminary Blood No Growth after 120 hours Assessment and Plan Assessment: Severe triple-vessel coronary disease Postop day #2, status post four-vessel bypass grafting. Postoperative respiratory failure, with extubation on February 01. Acute non-ST segment elevation myocardial infarction Severe ischemic cardiomyopathy Systolic congestive heart failure Benign essential hypertension Hyperlipidemia Extrinsic ALLERGIC alveolitis Mild COPD Previous tobacco history Plan: Plan dated 01/31/2018 The patient after surgery for mechanical ventilation management. The patient otherwise is doing well. She likely will do well. Additional recommendations are made. The patient will be placed on updrafts after surgery. Typically will use DuoNeb every 4 hours around the clock. We'll continue to follow. Plan dated 02/01/2018 Start working on weaning the patient. The FiO2 has been weaned down to 50% and PEEP is at 5. Arterial blood gases are reasonable. The patient still on a bit of propofol. That will be weaned off. She also remains on Primacor, insulin, and Cleviprex. Additional recommendations and suggestions are forthcoming. Prognosis is guarded. Critical care time is 33 minutes Plan dated 02/02/2018 The patient is on a number of different medications at this time including dopamine, Lasix, and amiodarone. She is also receiving nonrebreather mask. Might attempt some BiPAP later today. Additional recommendations and suggestions are forthcoming. The patient's chest x-ray though, does not look horrible. Critical care time 31 minutes Time with Patient: Greater than 30
[2018-02-02] MEDS: AMIODARONE 200 MG TAB PO SCH ×2 (11:12→21:02)
[2018-02-02] MEDS: METOPROLOL TARTRATE 12.5 MG TAB PO SCH ×2 (11:19→21:02)
[2018-02-02] MEDS ORDERED: NOREPINEPHRIN 16 MG-0.9%NS PMX 16 MG/250 ML ML IV SCH (11:30)
--- NOTE | 2018-02-02 11:31 | P.PN ---
Subjective Progress Note Date: 02/02/18 Principal diagnosis: Acute coronary syndrome This is a pleasant 73-year-old female patient with a past medical history significant for hypertension and dyslipidemia with no documented history of coronary artery disease or congestive heart failure presented to the hospital complaining of shortness of breath for the last 3 weeks. The patient stated that the shortness of breath was started about 3 weeks ago. Beside that she describes epigastric discomfort. She stated she developed bilateral lower extremities edema and she was seen by her primary care physician who put her on Lasix with improvement in the edema. The patient did not have any symptoms of chest pain or discomfort, dizziness or lightheadedness, or any syncope. She does have epigastric discomfort mainly. The EKG showed sinus rhythm with nonspecific changes in the inferior leads. There was also some ST and T wave abnormalities seems to be diffuse. Beside that the d-dimer came in to be abnormal and the patient is in process to have a CTA of the chest to rule out any PE. The BNP came in to be also severely abnormal and the patient was given Lasix IV in the emergency room. The first set of troponin also came in to be slightly abnormal. The patient underwent an emergent heart catheterization and that revealed severe triple-vessel coronary artery disease. She was seen and evaluated by cardiothoracic surgeon and the plan is to proceed with CABG this coming Wednesday. The patient underwent CABG 4 yesterday we'll DURON to LAD, SVG to diagonal, SVG to OM, and SVG to PDA. This is postoperative day #2. The patient went into an A. fib with RVR yesterday and she was converted to normal sinus mechanism and currently she is on amiodarone IV and going to be started on amiodarone by mouth later on today. She has been maintaining normal sinus mechanism and sinus bradycardia with heart rate in the 60s. Hemodynamically she is also unstable and she is requesting small dose of dopamine. She is also on Lasix drip because she is not making urine. She continues to be on dual antiplatelet therapy as well as on a statin. Objective - Vital Signs Vital signs: Vital Signs Temp 97.5 F L 02/02/18 08:00 Pulse 62 02/02/18 11:00 Resp 18 02/02/18 10:37 BP 97/42 02/02/18 07:00 Pulse Ox 96 04/11/18 11:00 Intake & Output 02/01/18 02/02/18 02/02/18 18:59 06:59 18:59 Intake Total 897.643 988.823 221.943 Output Total 1207 555 186 Balance -309.357 433.823 35.943 Weight 81.2 kg Intake: IV 586 338 104 CI/CO 40 Lactated Ringers 1,000 ml 450 260 80 @ 20 mls/hr IV .Q24H [facility] Rx#:[id number] pressure bag 96 78 24 Intake, IV Titration 311.643 290.823 117.943 Amount Amiodarone 450 mg In 33.3 290.823 117.943 Dextrose 5% in Water 250 ml @ 1 MG/MIN 34.53 mls/ hr IV .Q7H31M [facility] Rx#: [id number] Clevidipine Butyrate 25 28.433 mg In Empty Bag 1 bag @ 1 MG/HR 2 mls/hr IV .Q24H [facility] Rx#:[id number] Dextrose 5% in Water 100 100 ml @ 618 mls/hr IV .Q10M ONE with Amiodarone 150 mg Rx#:[id number] Insulin Regular 100 unit 9.675 In Sodium Chloride 0.9% 100 ml @ Per Protocol IV .Q0M [facility] Rx#:[id number] Milrinone-D5w Pmx 20 mg 87.692 In Dextrose/Water 1 100ml .bag @ Per Protocol IV . Q0M [facility] Rx#:[id number] Propofol 1,000 mg In 52.543 Empty Bag 1 bag @ Titrate IV .Q0M [facility] Rx#: [id number] Oral 360 Output: Chest Tube Drainage 137 260 111 Chest Tube Mediastinal 86 50 11 Left Pleural 50 145 0 Right Pleural 1 65 100 Drainage 65 70 Right Calf 65 70 Urine 1005 225 75 Other: Voiding Method Indwelling Catheter Indwelling Catheter Indwelling Catheter # Voids 0 # Bowel Movements 0 ABP, PAP, CO, CI - Last Documented Arterial Blood Pressure 91/40 Pulmonary Artery Pressure 51/26 Cardiac Output 5.4 Cardiac Index 3.0 - Constitutional General appearance: Present: no acute distress - Respiratory Respiratory: bilateral: diminished - Cardiovascular Rhythm: regular Heart sounds: normal: S1, S2 - Labs CBC & Chem 7: 02/02/18 04:05 02/02/18 04:05 Labs: Abnormal Lab Results - Last 24 Hours (Table) 02/01/18 02/01/18 02/01/18 Range/Units 12:05 13:03 14:20 WBC (3.8-10.6) k/uL RBC (3.80-5.40) m/uL Hgb (11.4-16.0) gm/dL Hct (34.0-46.0) % Plt Count (150-450) k/uL Neutrophils # (1.3-7.7) k/uL Potassium (3.5-5.1) mmol/L Carbon Dioxide (22-30) mmol/L BUN (7-17) mg/dL Creatinine (0.52-1.04) mg/dL Glucose (74-99) mg/dL POC Glucose (mg/dL) 126 H 120 H 116 H (75-99) mg/dL Calcium (8.4-10.2) mg/dL Magnesium (1.6-2.3) mg/dL AST (14-36) U/L ALT (9-52) U/L Total Protein (6.3-8.2) g/dL Albumin (3.5-5.0) g/dL 02/01/18 02/01/18 02/01/18 Range/Units 16:02 16:10 17:33 WBC (3.8-10.6) k/uL RBC (3.80-5.40) m/uL Hgb (11.4-16.0) gm/dL Hct (34.0-46.0) % Plt Count (150-450) k/uL Neutrophils # (1.3-7.7) k/uL Potassium (3.5-5.1) mmol/L Carbon Dioxide (22-30) mmol/L BUN (7-17) mg/dL Creatinine (0.52-1.04) mg/dL Glucose (74-99) mg/dL POC Glucose (mg/dL) 116 H 120 H (75-99) mg/dL Calcium (8.4-10.2) mg/dL Magnesium 2.7 H (1.6-2.3) mg/dL AST (14-36) U/L ALT (9-52) U/L Total Protein (6.3-8.2) g/dL Albumin (3.5-5.0) g/dL 02/01/18 02/02/18 02/02/18 Range/Units 22:18 01:55 04:05 WBC (3.8-10.6) k/uL RBC (3.80-5.40) m/uL Hgb (11.4-16.0) gm/dL Hct (34.0-46.0) % Plt Count (150-450) k/uL Neutrophils # (1.3-7.7) k/uL Potassium 5.6 H (3.5-5.1) mmol/L Carbon Dioxide 21 L (22-30) mmol/L BUN 28 H (7-17) mg/dL Creatinine 2.00 H (0.52-1.04) mg/dL Glucose 122 H (74-99) mg/dL POC Glucose (mg/dL) 179 H 135 H (75-99) mg/dL Calcium 8.3 L (8.4-10.2) mg/dL Magnesium 3.0 H (1.6-2.3) mg/dL AST 627 H (14-36) U/L ALT 338 H (9-52) U/L Total Protein 5.1 L (6.3-8.2) g/dL Albumin 3.3 L (3.5-5.0) g/dL 02/02/18 02/02/18 Range/Units 04:05 07:47 WBC 14.7 H (3.8-10.6) k/uL RBC 2.57 L (3.80-5.40) m/uL Hgb 7.7 L (11.4-16.0) gm/dL Hct 24.6 L (34.0-46.0) % Plt Count 135 L (150-450) k/uL Neutrophils # 12.6 H (1.3-7.7) k/uL Potassium (3.5-5.1) mmol/L Carbon Dioxide (22-30) mmol/L BUN (7-17) mg/dL Creatinine (0.52-1.04) mg/dL Glucose (74-99) mg/dL POC Glucose (mg/dL) 118 H (75-99) mg/dL Calcium (8.4-10.2) mg/dL Magnesium (1.6-2.3) mg/dL AST (14-36) U/L ALT (9-52) U/L Total Protein (6.3-8.2) g/dL Albumin (3.5-5.0) g/dL Microbiology - Last 24 Hours (Table) 01/27/18 10:50 Blood Culture - Preliminary Blood No Growth after 120 hours Assessment and Plan Assessment: assessment #1 severe triple-vessel coronary artery disease and status post CABG #2 severe ischemic cardiomyopathy. #3 congestive heart failure exacerbation secondary to systolic dysfunction #4 hypertension #5 dyslipidemia Plan #1 continue the current medical treatment #2 continue the blood pressure support with Levophed #3 continue dual antiplatelet therapy Thank you for allowing us participate in her care and we'll continue following up with the patient
[2018-02-02 11:53] LABS: Potassium 5.1 mmol/L (3.5-5.1)
[2018-02-02 12:26] LABS: Glucose,Whole Blood 152 mg/dL (75-99)
[2018-02-02] MEDS: ALBUMIN HUMAN 5% 500 ML in EMPTY BAG 1 BAG IVPB STA ×2 (15:10→15:49)
[2018-02-02] MEDS: LACTATED RINGERS 1,000 ML IV SCH (15:10)
[2018-02-02] MEDS ORDERED: CALCIUM GLUCONATE 1,000 MG in SODIUM CHLORIDE 0.9% 100 ML IVPB ONE (16:00)
[2018-02-02 17:30] LABS: Glucose,Whole Blood 130 mg/dL (75-99)
[2018-02-02 18:32] LABS: HGB 7.1 gm/dL (11.4-16.0); MCH 30.3 pg (25.0-35.0); MCHC 32.4 g/dL (31.0-37.0); MCV 93.6 fL (80.0-100.0); Mean Platelet Volume 7.8; Platelet Count 124 k/uL (150-450); RBC 2.35 m/uL (3.80-5.40); RDW 15.6 % (11.5-15.5); WBC 16.1 k/uL (3.8-10.6)
[2018-02-02 21:02] LABS: Glucose,Whole Blood 191 mg/dL (75-99)
[2018-02-02] MEDS: SENNOSIDES-DOCUSATE SODIUM 1 EACH TAB PO SCH (21:04)
--- NOTE | 2018-02-02 22:14 | CONS ---
CONSULTATION REASON FOR CONSULT: Renal failure. HISTORY OF PRESENT ILLNESS: Patient is a 72-year-old female, status post coronary artery bypass surgery on 01/31/2018. Patient had quadruple coronary artery bypass surgery, status post non-ST- elevation [place]. She also had cardiomyopathy, ejection fraction 25% to 30% prior to surgery. Patient was doing fairly well yesterday. She has already been extubated. However, last evening she developed atrial fibrillation with RVR and was hypotensive for a short period of time. Her urine output dropped yesterday. She did not respond to IV push Lasix and this morning patient was started on dopamine. Lasix drip was added as well. Urine output had initially picked up, but it dwindled down again, and most recently she has been about 5-10 mL/hour. Blood pressure was low and patient was switched to Levophed. There is no fever. Hemoglobin is staying at about 7.1 g/dL. PAST MEDICAL HISTORY: 1. Hypertension. 2. Hyperlipidemia. 3. Obesity. 4. Gout. 5. Vaginal polyps. 6. Bird breeder's disease. SOCIAL HISTORY: Patient is a former smoker. No history of drug abuse or alcohol abuse. MEDICATIONS: Medications prior to admission included bisoprolol/hydrochlorothiazide. Currently patient is on dopamine. Lasix drip has been started. She is on aspirin. Primacor was discontinued yesterday. Patient is also on amiodarone drip. PHYSICAL EXAMINATION: On examination, patient is currently sitting up in a bedside chair. She is weak, mildly short of breath, not in any acute distress. Blood pressure this morning was 92/50, heart rate about 70 per minute. Patient is afebrile. EXAMINATION OF THE HEART: S1, S2. EXAMINATION OF LUNGS: Decreased breath sounds at the bases. ABDOMEN: Soft, distended. Examination of lower extremities shows bilateral extremities to be wrapped. Right leg has a drain at the site of vein harvest. LABS: Labs this morning show sodium 141, potassium 5.6, chloride 105, BUN 28, serum creatinine 2.0. Hemoglobin was 7.7. Previous creatinine was 1.0 mg/dL yesterday. Chest x-ray shows suggestion of pulmonary vascular congestion. ASSESSMENT: 1. Acute kidney injury, acute tubular necrosis, currently oliguric, secondary to hemodynamic changes/hypotension and hypoperfusion. Agree with Lasix drip. Will repeat another CBC and transfuse if hemoglobin drops further, given the continued hypotension. Continue to avoid nephrotoxic agents. Repeat electrolytes in about 2- 3 hours. 2. Hyperkalemia associated with acute kidney injury, status post insulin and D50. 3. Status post quadruple coronary artery bypass surgery. 4. Status post nst-[id number] myocardial infarction. 5. Cardiomyopathy with ejection fraction 25% to 30% prior to bypass surgery. PLAN: Agree with Lasix drip. We will try to maintain higher perfusion pressures. Repeat CBC this evening. Follow up on the hemoglobin and transfuse if her hemoglobin drops further. Thank you for this consultation. Will continue to follow the patient with you during her hospitalization. MMODL / IJN: [id number] /
--- NOTE | 2018-02-02 23:10 | P.PN ---
Subjective Progress Note Date: 02/02/18 Principal diagnosis: Status post cardiac catheterization. Triple-vessel disease This is a pleasant 73-year-old female patient with a past medical history significant for hypertension and dyslipidemia with no documented history of coronary artery disease or congestive heart failure presented to the hospital complaining of shortness of breath for the last 3 weeks. The patient stated that the shortness of breath was started about 3 weeks ago. Beside that she describes epigastric discomfort. She stated she developed bilateral lower extremities edema and she was seen by her primary care physician who put her on Lasix with improvement in the edema. The patient did not have any symptoms of chest pain or discomfort, dizziness or lightheadedness , or any syncope. She does have epigastric discomfort mainly. The EKG showed sinus rhythm with nonspecific changes in the inferior leads. There was also some ST and T wave abnormalities seems to be diffuse. Beside that the d-dimer came in to be abnormal and the patient is in process to have a CTA of the chest to rule out any PE. The BNP came in to be also severely abnormal and the patient was given Lasix IV in the emergency room. The first set of troponin also came in to be slightly abnormal. The patient underwent an emergent heart catheterization and that revealed severe triple-vessel coronary artery disease. She was seen and evaluated by cardiothoracic surgeon and the plan is to proceed with CABG this coming Wednesday. 01/28/2018 Patient seen and examined at bedside in ICU; family members at bedside; she denies any chest pain or shortness of breath; patient is continued on aspirin, metoprolol, Lasix and Aldactone; statins and lisinopril has been continued; echocardiogram showed impaired left ventricular function with ejection fraction of 25-30% 01/29/2018 Patient remains in ICU; sitting up in a chair and denies any chest pain or shortness of breath; overall patient seems to be doing better 01/30/2018 Patient remains in ICU and remains chest pain-free; patient relates that her swelling in both lower extremities is improved; she remains on Lasix and Aldactone Patient is scheduled for CABG in the morning 01/31/2018 Patient underwent quadruple bypass graft today currently intubated postoperatively. Pulmonary and CT surgery is following. Chest x-ray showed left lower lung atelectasis and possible postoperative changes. 02/01/2018 Patient is status post quadruple bypass graft. Patient was successfully weaned off of ventilator. Next and chest x-ray showed mild fluid overload. Otherwise patient is awake alert and lying in the bed comfortable.. Patient went to atrial fibrillation and was started on amiodarone. No fever no chills. No chest pain or worsening shortness of breath. Complete review of systems could not be apparent from the patient. 02/02/2018 Patient is more awake and alert today. Able to also simple questions. Currently converted back to sinus rhythm. Amiodarone has been changed to oral. Patient is on dopamine drip at low-dose. Continued on IV Lasix drip. Patient is being converted on aspirin, Plavix and statins. Cardiology and pulmonary is following. No fever no chills. Patient denied any worsening shortness of breath or chest pain. Active Medications Generic Name Dose Route Start Last Admin Trade Name Freq PRN Reason Stop Dose Admin Hydrocodone Bitart/Acetaminophen 2 each 02/01/18 14:36 02/02/18 06:39 [place] 5-325 PO 2 each Q4HR PRN Administration Severe Pain Hydrocodone Bitart/Acetaminophen 1 each 02/01/18 14:36 02/02/18 16:31 [place] 5-325 PO 1 each Q4HR PRN Administration Moderate Pain Albuterol/Ipratropium 3 ml 02/01/18 14:37 Duoneb 0.5 Mg-3 Mg/3 Ml Soln INHALATION RT-Q2H PRN Shortness Of Breath Or Wheezing Albuterol/Ipratropium 3 ml 02/01/18 14:37 02/02/18 19:56 Duoneb 0.5 Mg-3 Mg/3 Ml Soln INHALATION 3 ml RT-QID ERIN Administration Amiodarone HCl 200 mg 02/02/18 11:00 02/02/18 21:02 Cordarone PO 200 mg BID ERIN Administration Aspirin 325 mg 02/01/18 09:00 02/02/18 09:05 Aspirin PO 325 mg DAILY ERIN Administration Benzocaine/Menthol 1 each 01/31/18 14:43 Cepacol Lozenge MUCOUS MEM Q2H PRN Sore Throat Bisacodyl 10 mg 02/01/18 14:36 Dulcolax RECTAL DAILY PRN Constipation Clopidogrel Bisulfate 75 mg 02/01/18 09:00 02/02/18 09:05 Plavix PO 75 mg DAILY [facility] Administration Heparin Sodium (Porcine) 5,000 unit 02/01/18 00:00 02/02/18 16:32 Heparin SQ 5,000 unit Q8HR [facility] Administration Lactated Ringer's 1,000 mls @ 20 mls/hr 01/31/18 14:43 02/02/18 15:10 Lactated Ringers IV 20 mls/hr .Q24H [facility] Administration Furosemide 250 mg/ Sodium 250 mls @ 15 mls/hr 02/02/18 08:00 02/02/18 19:00 Chloride IVP 15 mg/hr .[id number] [facility] 15 mls/hr 15 MG/HR Infusion Norepinephrine Bitartrate 16 mg in 250 mls @ 0 mls/hr 02/02/18 11:30 14:54 Levophed-0.9% Nacl 16 Mg/250ml Pmx IV 5 mcg/min .Q0M [facility] 4.688 mls/hr Protocol Titration Titrate Dopamine HCl/Dextrose 800 mg/ 500 mls @ 7.43 mls/hr 02/02/18 19:15 02/02/18 19:00 IV Solution IV 2.5 mcg/kg/min .Q24H [facility] 7.43 mls/hr 2.5 MCG/KG/MIN Administration Insulin Aspart 0 unit 02/01/18 17:30 02/02/18 21:04 Novolog SQ 2 unit [id number] ERIN Administration Protocol Magnesium Hydroxide 2,400 mg 02/01/18 14:36 Milk Of Magnesia PO BID PRN Constipation Metoclopramide HCl 10 mg 01/31/18 14:43 Reglan IVP Q4H PRN Nausea And Vomiting Metoprolol Tartrate 12.5 mg 02/02/18 09:00 02/02/18 21:02 Lopressor PO Not Given BID [facility] Miscellaneous Information 1 each 01/31/18 14:43 Magnesium Per Protocol MISCELLANE DAILY PRN Per Protocol Protocol Miscellaneous Information 1 each 01/31/18 14:43 Phosphorus Per Protocol MISCELLANE DAILY PRN Per Protocol Protocol Miscellaneous Information 1 each 01/31/18 14:43 Potassium Per Protocol MISCELLANE DAILY PRN Per Protocol Protocol Morphine Sulfate 2 mg 01/31/18 14:43 02/01/18 13:51 Morphine Sulfate (Inj) IVP 2 mg Q2H PRN Administration Severe Pain Mupirocin 1 applic 01/31/18 21:00 02/02/18 21:03 Bactroban Oint NASAL 02/03/18 21:01 1 applic BID [facility] Administration Ondansetron HCl 4 mg 01/31/18 14:43 02/02/18 07:58 Zofran IVP 4 mg Q6HR PRN Administration Nausea And Vomiting Pantoprazole Sodium 40 mg 02/01/18 09:00 02/02/18 09:05 Protonix IVP 40 mg DAILY ERIN Administration Senna/Docusate Sodium 2 each 02/01/18 21:00 02/02/18 21:04 Senokot-S PO 2 each HS ERIN Administration Sodium Chloride 10 ml 01/31/18 21:00 02/02/18 21:03 Saline Flush IV 10 ml BID ERIN Administration Objective - Vital Signs Vital signs: Vital Signs Temp 98.1 F 02/02/18 16:00 Pulse 61 02/02/18 17:00 Resp 16 02/02/18 16:00 BP 97/42 02/02/18 07:00 Pulse Ox 97 02/02/18 17:00 Intake & Output 02/01/18 02/02/18 02/02/18 18:59 06:59 18:59 Intake Total 897.643 988.823 987.475 Output Total 1207 555 344 Balance -309.357 433.823 643.475 Weight 79.3 kg 79.3 kg Intake: IV 586 338 860 Albumin 500 CI/CO 40 Calcium Gluconate 100 Lactated Ringers 1,000 ml 450 260 200 @ 20 mls/hr IV .Q24H [facility] Rx#:[id number] pressure bag 96 78 60 Intake, IV Titration 311.643 290.823 127.475 Amount Amiodarone 450 mg In 33.3 290.823 117.943 Dextrose 5% in Water 250 ml @ 1 MG/MIN 34.53 mls/ hr IV .Q7H31M [facility] Rx#: [id number] Clevidipine Butyrate 25 28.433 mg In Empty Bag 1 bag @ 1 MG/HR 2 mls/hr IV .Q24H [facility] Rx#:[id number] Dextrose 5% in Water 100 100 ml @ 618 mls/hr IV .Q10M ONE with Amiodarone 150 mg Rx#:[id number] Insulin Regular 100 unit 9.675 In Sodium Chloride 0.9% 100 ml @ Per Protocol IV .Q0M [facility] Rx#:[id number] Milrinone-D5w Pmx 20 mg 87.692 In Dextrose/Water 1 100ml .bag @ Per Protocol IV . Q0M [facility] Rx#:[id number] Norepinephrin 16 mg-0.9% 9.532 Ns Pmx 16 mg In 250 ml @ Titrate IV .Q0M [facility] Rx#: [id number] Propofol 1,000 mg In 52.543 Empty Bag 1 bag @ Titrate IV .Q0M [facility] Rx#: [id number] Oral 360 Output: Chest Tube Drainage 137 260 81 Chest Tube Mediastinal 86 50 11 Left Pleural 50 145 40 Right Pleural 1 65 30 Drainage 65 70 60 Right Calf 65 70 60 Urine 1005 225 203 Other: Voiding Method Indwelling Catheter Indwelling Catheter Indwelling Catheter # Voids 0 # Bowel Movements 0 ABP, PAP, CO, CI - Last Documented Arterial Blood Pressure 106/39 Pulmonary Artery Pressure 51/26 Cardiac Output 5.4 Cardiac Index 3.0 - Exam PHYSICAL EXAMINATION: Patient is lying in the bed comfortably, no acute distress, awake alert but seems to be lethargic and drowsy HEENT: Normocephalic. Neck is supple. Pupils reactive. Nostrils clear. Oral cavity is moist. Ears reveal no drainage. Neck reveals no JVD, carotid bruits, or thyromegaly. CHEST EXAMINATION: Trachea is central. Symmetrical expansion. Bibasilar diminished breath sounds and minimal crackles. Chest tubes in place.. CARDIAC: Normal S1, S2 with no gallops. No murmurs ABDOMEN: Soft. Bowel sounds normal. No organomegaly. No abdominal bruits. Extremities: reveal no edema. No clubbing or cyanosis Neurologically awake alert. No focal deficits noted Skin: No rash or skin lesions. Psychiatric: Could not be assessed completely Musculoskeletal: No joint swelling or deformity. Normal range of motion. - Labs CBC & Chem 7: 02/02/18 18:09 02/02/18 11:15 Labs: Abnormal Lab Results - Last 24 Hours (Table) 02/01/18 02/02/18 02/02/18 Range/Units 22:18 01:55 04:05 WBC (3.8-10.6) k/uL RBC (3.80-5.40) m/uL Hgb (11.4-16.0) gm/dL Hct (34.0-46.0) % Plt Count (150-450) k/uL Neutrophils # (1.3-7.7) k/uL Potassium 5.6 H (3.5-5.1) mmol/L Carbon Dioxide 21 L (22-30) mmol/L BUN 28 H (7-17) mg/dL Creatinine 2.00 H (0.52-1.04) mg/dL Glucose 122 H (74-99) mg/dL POC Glucose (mg/dL) 179 H 135 H (75-99) mg/dL Calcium 8.3 L (8.4-10.2) mg/dL Magnesium 3.0 H (1.6-2.3) mg/dL AST 627 H (14-36) U/L ALT 338 H (9-52) U/L Total Protein 5.1 L (6.3-8.2) g/dL Albumin 3.3 L (3.5-5.0) g/dL 02/02/18 02/02/18 02/02/18 Range/Units 04:05 07:47 11:15 WBC 14.7 H (3.8-10.6) k/uL RBC 2.57 L (3.80-5.40) m/uL Hgb 7.7 L (11.4-16.0) gm/dL Hct 24.6 L (34.0-46.0) % Plt Count 135 L (150-450) k/uL Neutrophils # 12.6 H (1.3-7.7) k/uL Potassium (3.5-5.1) mmol/L Carbon Dioxide (22-30) mmol/L BUN 33 H (7-17) mg/dL Creatinine 2.53 H (0.52-1.04) mg/dL Glucose (74-99) mg/dL POC Glucose (mg/dL) 118 H (75-99) mg/dL Calcium (8.4-10.2) mg/dL Magnesium (1.6-2.3) mg/dL AST (14-36) U/L ALT (9-52) U/L Total Protein (6.3-8.2) g/dL Albumin (3.5-5.0) g/dL 02/02/18 02/02/18 Range/Units 12:24 17:29 WBC (3.8-10.6) k/uL RBC (3.80-5.40) m/uL Hgb (11.4-16.0) gm/dL Hct (34.0-46.0) % Plt Count (150-450) k/uL Neutrophils # (1.3-7.7) k/uL Potassium (3.5-5.1) mmol/L Carbon Dioxide (22-30) mmol/L BUN (7-17) mg/dL Creatinine (0.52-1.04) mg/dL Glucose (74-99) mg/dL POC Glucose (mg/dL) 152 H 130 H (75-99) mg/dL Calcium (8.4-10.2) mg/dL Magnesium (1.6-2.3) mg/dL AST (14-36) U/L ALT (9-52) U/L Total Protein (6.3-8.2) g/dL Albumin (3.5-5.0) g/dL Microbiology - Last 24 Hours (Table) 01/27/18 10:50 Blood Culture - Final Blood No Growth after 144 hours Assessment and Plan Assessment: Acute non-ST elevated [place]. Status post Cardiac catheterization showed triple- vessel disease. Status post quadruple bypass graft on 01/31/2018 Atrial fibrillation with rapid ventricular rate. Started on amiodarone Exertional shortness of breath for 2 weeks prior to admission Acute CHF with systolic dysfunction Severe ischemic cardio myopathy Leukocytosis. Likely reactive. Hypertension hyperlipidemia Obesity DVT prophylaxis Plan: Continue with the aspirin statins and metoprolol and lisinopril and Aldactone. Continue with amiodarone changed to oral. Cardiology and cardiac surgery is following. We'll continue to monitor renal function. Follow-up CBC and BMP tomorrow. Continue to monitor the patient in ICU. Further recommendations based on the clinical course. Time with Patient: Greater than 30
[2018-02-03] MEDS ORDERED: DEXTROSE 5% IN WATER 100 ML with AMIODARONE 150 MG IV ONE ×2 (01:16→14:00)
[2018-02-03] MEDS ORDERED: AMIODARONE 450 MG in DEXTROSE 5% IN WATER 250 ML IV SCH ×2 (01:30)
[2018-02-03 02:09] LABS: Glucose,Whole Blood 167 mg/dL (75-99)
[2018-02-03] MEDS: INSULIN ASPART 100 UNIT/ML 1 ML 10 ML VIAL SQ SCH ×5 (02:18→22:53)
[2018-02-03 04:25] LABS: Anisocytosis Slight; Basophils # (A) 0.1 k/uL (0-0.2); Basophils % (A) 0 %; Eosinophils # (A) 0.3 k/uL (0-0.7); Eosinophils % (A) 2 %; HGB 8.5 gm/dL (11.4-16.0); Ionized Calcium 4.7 mg/dL (4.5-5.3); Lymphocytes # (A) 0.8 k/uL (1.0-4.8); Lymphocytes % (A) 6 %; MCH 30.1 pg (25.0-35.0); MCHC 32.5 g/dL (31.0-37.0); MCV 92.5 fL (80.0-100.0); Mean Platelet Volume 7.9; Monocytes # (A) 0.5 k/uL (0-1.0); Monocytes % (A) 4 %; Neutrophils # (A) 12.8 k/uL (1.3-7.7); Neutrophils % (A) 88 %; Platelet Count 108 k/uL (150-450); RBC 2.81 m/uL (3.80-5.40); RDW 16.1 % (11.5-15.5); WBC 14.6 k/uL (3.8-10.6)
[2018-02-03 04:38] LABS: Albumin 3.3 g/dL (3.5-5.0); Calcium 8.1 mg/dL (8.4-10.2); Magnesium 2.8 mg/dL (1.6-2.3); Total Protein 5.2 g/dL (6.3-8.2)
[2018-02-03 07:36] LABS: Glucose,Whole Blood 118 mg/dL (75-99)
[2018-02-03] MEDS: HYDROcodone/APAP 5-325MG 1 EACH TAB PO PRN ×2 (07:57→17:58)
[2018-02-03] MEDS: DEXTROSE 5% IN WATER 100 ML with AMIODARONE 150 MG IV ONE ×2 (07:58→10:31)
[2018-02-03] MEDS: HEPARIN SODIUM,PORCINE 5,000 UNIT/ML 1 ML VIAL SQ SCH ×2 (07:58→15:39)
[2018-02-03] MEDS: ASPIRIN 325 MG TAB PO SCH (07:59)
[2018-02-03] MEDS: MUPIROCIN 2% OINT 22 GM TUBE NASAL SCH ×2 (07:59→22:59)
[2018-02-03] MEDS: AMIODARONE 200 MG TAB PO SCH ×2 (07:59→22:49)
[2018-02-03] MEDS: CLOPIDOGREL 75 MG TAB PO SCH (07:59)
[2018-02-03] MEDS: METOPROLOL TARTRATE 12.5 MG TAB PO SCH ×3 (08:00→22:59)
--- NOTE | 2018-02-03 08:12 | P.PN ---
Subjective Progress Note Date: 02/03/18 Principal diagnosis: Symptomatic multivessel coronary artery disease, with left main disease, non-ST elevated myocardial infarction this admission, congestive heart failure exacerbation secondary to systolic dysfunction, severe ischemic cardiomyopathy with a preoperative ejection fraction of 25-30%, history of gout, history of syncope 2 years ago, obesity, remote history of nicotine dependence quit 30 years ago, hypertension, hyperlipidemia, and recent pneumonia. POD #3 urgent coronary artery bypass grafting 4 using the left internal mammary artery to the mid left anterior descending artery, a reverse greater saphenous vein graft from the aorta to the diagonal artery, a reverse greater saphenous vein graft from the aorta to the first obtuse marginal artery, a reverse greater saphenous vein graft from the aorta to the posterior descending artery. Endoscopic harvesting of the right greater saphenous vein. Intraoperative transesophageal echocardiogram and epi-aortic scanning. Intraoperative graft flow measurements using the [employer] system. Postoperative acute elevation of transaminases, an unexpected but potential outcome of surgery. Postoperative paroxysmal atrial fibrillation, an expected outcome of surgery. Acute kidney injury, acute tubular necrosis secondary to hemodynamic changes and hypotension. Patient is currently sitting up to bedside chair. She is in no acute distress. Reports she is having pain to her left leg at her ELICEO insertion site. She rates the pain at 4 out of 10 on the pain scale. She is currently in atrial fibrillation heart rate 98 on the bedside monitor. Oxygen saturation are 98% on 10 L high flow nasal cannula and she is achieving 500 mL on her incentive spirometry with encouragement. Objective - Vital Signs Vital signs: Vital Signs Temp 98.3 F 02/03/18 04:00 Pulse 100 02/03/18 07:00 Resp 24 02/03/18 07:00 BP 99/57 02/03/18 07:00 Pulse Ox 98 02/03/18 07:00 Intake & Output 02/02/18 02/03/18 02/03/18 18:59 06:59 18:59 Intake Total 1013.475 936.708 31 Output Total 364 815 75 Balance 649.475 121.708 -44 Weight 79.3 kg 84.6 kg Intake: IV 886 732.35 31 Albumin 500 Amiodarone 450 mg In 313.2 Dextrose 5% in Water 250 ml @ 1 MG/MIN 33.33 mls/ hr IV .Q7H31M [facility] Rx#: [id number] Calcium Gluconate 100 DOPamine DRIP 800 mg In 37.15 Dextrose/Water 1 500ml. bag @ 2.5 MCG/KG/MIN 7.43 mls/hr IV .Q24H [facility] Rx#: [id number] Furosemide 250 mg In 150 15 Sodium Chloride 0.9% 225 ml @ 15 MG/HR 15 mls/hr IVP .[id number] [facility] Rx#: [id number] Lactated Ringers 1,000 ml 220 160 10 @ 20 mls/hr IV .Q24H [facility] Rx#:[id number] pressure bag 66 72 6 Intake, IV Titration 127.475 204.358 Amount Amiodarone 450 mg In 117.943 Dextrose 5% in Water 250 ml @ 1 MG/MIN 34.53 mls/ hr IV .Q7H31M [facility] Rx#: [id number] Furosemide 250 mg In 173.417 Sodium Chloride 0.9% 225 ml @ 15 MG/HR 15 mls/hr IVP .[id number] [facility] Rx#: [id number] Norepinephrin 16 mg-0.9% 9.532 30.941 Ns Pmx 16 mg In 250 ml @ Titrate IV .Q0M [facility] Rx#: [id number] Blood Product 0 Rc As-1 Unit 0 [id number] Output: Chest Tube Drainage 91 110 Chest Tube Mediastinal 11 Left Pleural 50 110 Right Pleural 30 Drainage 60 165 Right Calf 60 165 Urine 213 540 75 Other: Voiding Method Indwelling Catheter Indwelling Catheter # Voids 0 ABP, PAP, CO, CI - Last Documented Arterial Blood Pressure 120/54 Pulmonary Artery Pressure 51/26 Cardiac Output 5.4 Cardiac Index 3.0 - Constitutional General appearance: Present: cooperative, no acute distress, obese - EENT ENT: Present: hearing grossly normal - Neck Details: No JVD, neck is supple, no lymphadenopathy. Right IJ Cordis in place and connected to continuous CVP monitoring. Current CVP pressure 10 mm/Hg. - Respiratory Details: Lung sounds with few scattered crackles to her bilateral bases. Respirations are symmetrical and nonlabored. Oxygen saturation are 98 percent on 10 L high flow nasal cannula. She is achieving 500 mL on her incentive spirometry with encouragement. Left pleural chest tube remains in place to low continuous wall suction -20 cm H2O. No air leak present. Draining thin serosanguineous drainage with 100 mL output in the last 8 hours, 190 mL output in the last 24 hours. - Cardiovascular Details: Irregular rhythm with controlled rate. S1 and S2 present, negative for S3, gallop or murmur. Sternum is stable. Bedside telemetry showing atrial fibrillation heart rate 98. Heart hugger's in place and she is demonstrating appropriate use. Atrial and ventricular epicardial pacemaker wires in place and grounded. +1 generalized edema. Left radial arterial line present and functioning. Right internal jugular Cordis in place and functioning, connected to continuous CVP monitoring. Current CVP pressure is 10 mmHg. - Gastrointestinal Gastrointestinal Comment(s): Abdomen is soft, nontender and nondistended. Active bowel sounds to all 4 abdominal quadrants. Tolerating oral intake. Passing flatus. - Genitourinary Genitourinary Comment(s): Cordova catheter for accurate I&O. Draining clear parth urine. 490 mL output in the last 8 hours. Lasix drip remains at 15 mg per hour. - Integumentary Integumentary Comment(s): Skin is warm and dry. No clubbing or cyanosis present. Midline sternal incision clean dry and approximated. The drainage or redness present. Dermabond dressing clean and dry. Right lower leg EVH site clean dry and approximated. Right lower leg ELICEO drain present and draining thin serosanguineous drainage. 165 mL output in the last 8 hours. - Neurologic Neurologic: Present: CNII-XII intact - Musculoskeletal Musculoskeletal: Present: gait normal, strength equal bilaterally - Psychiatric Psychiatric: Present: A&O x's 3, appropriate affect, intact judgment & insight - Allied health notes Allied health notes reviewed: nursing - Labs CBC & Chem 7: 02/03/18 04:00 02/03/18 04:00 Labs: Abnormal Lab Results - Last 24 Hours (Table) 02/02/18 02/02/18 02/02/18 Range/Units 11:15 12:24 17:29 WBC (3.8-10.6) k/uL RBC (3.80-5.40) m/uL Hgb (11.4-16.0) gm/dL Hct (34.0-46.0) % RDW (11.5-15.5) % Plt Count (150-450) k/uL Neutrophils # (1.3-7.7) k/uL Lymphocytes # (1.0-4.8) k/uL Carbon Dioxide (22-30) mmol/L BUN 33 H (7-17) mg/dL Creatinine 2.53 H (0.52-1.04) mg/dL Glucose (74-99) mg/dL POC Glucose (mg/dL) 152 H 130 H (75-99) mg/dL Calcium (8.4-10.2) mg/dL Magnesium (1.6-2.3) mg/dL AST (14-36) U/L ALT (9-52) U/L Alkaline Phosphatase (38-126) U/L Total Protein (6.3-8.2) g/dL Albumin (3.5-5.0) g/dL Crossmatch 02/02/18 02/02/18 02/02/18 Range/Units 18:09 19:18 21:01 WBC 16.1 H (3.8-10.6) k/uL RBC 2.35 L (3.80-5.40) m/uL Hgb 7.1 L (11.4-16.0) gm/dL Hct 22.0 L (34.0-46.0) % RDW 15.6 H (11.5-15.5) % Plt Count 124 L (150-450) k/uL Neutrophils # (1.3-7.7) k/uL Lymphocytes # (1.0-4.8) k/uL Carbon Dioxide (22-30) mmol/L BUN (7-17) mg/dL Creatinine (0.52-1.04) mg/dL Glucose (74-99) mg/dL POC Glucose (mg/dL) 191 H (75-99) mg/dL Calcium (8.4-10.2) mg/dL Magnesium (1.6-2.3) mg/dL AST (14-36) U/L ALT (9-52) U/L Alkaline Phosphatase (38-126) U/L Total Protein (6.3-8.2) g/dL Albumin (3.5-5.0) g/dL Crossmatch See Detail 02/03/18 02/03/18 02/03/18 Range/Units 02:07 04:00 04:00 WBC 14.6 H (3.8-10.6) k/uL RBC 2.81 L (3.80-5.40) m/uL Hgb 8.5 L (11.4-16.0) gm/dL Hct 26.0 L (34.0-46.0) % RDW 16.1 H (11.5-15.5) % Plt Count 108 L (150-450) k/uL Neutrophils # 12.8 H (1.3-7.7) k/uL Lymphocytes # 0.8 L (1.0-4.8) k/uL Carbon Dioxide 21 L (22-30) mmol/L BUN 40 H (7-17) mg/dL Creatinine 3.67 H (0.52-1.04) mg/dL Glucose 124 H (74-99) mg/dL POC Glucose (mg/dL) 167 H (75-99) mg/dL Calcium 8.1 L (8.4-10.2) mg/dL Magnesium 2.8 H (1.6-2.3) mg/dL AST 695 H (14-36) U/L ALT 297 H (9-52) U/L Alkaline Phosphatase 141 H (38-126) U/L Total Protein 5.2 L (6.3-8.2) g/dL Albumin 3.3 L (3.5-5.0) g/dL Crossmatch 02/03/18 Range/Units 07:34 WBC (3.8-10.6) k/uL RBC (3.80-5.40) m/uL Hgb (11.4-16.0) gm/dL Hct (34.0-46.0) % RDW (11.5-15.5) % Plt Count (150-450) k/uL Neutrophils # (1.3-7.7) k/uL Lymphocytes # (1.0-4.8) k/uL Carbon Dioxide (22-30) mmol/L BUN (7-17) mg/dL Creatinine (0.52-1.04) mg/dL Glucose (74-99) mg/dL POC Glucose (mg/dL) 118 H (75-99) mg/dL Calcium (8.4-10.2) mg/dL Magnesium (1.6-2.3) mg/dL AST (14-36) U/L ALT (9-52) U/L Alkaline Phosphatase (38-126) U/L Total Protein (6.3-8.2) g/dL Albumin (3.5-5.0) g/dL Crossmatch Microbiology - Last 24 Hours (Table) 01/27/18 10:50 Blood Culture - Final Blood No Growth after 144 hours - Imaging and Cardiology Chest x-ray: report reviewed, image reviewed Assessment and Plan (1) Coronary artery disease Current Visit: Yes Status: Chronic Code(s): I25.10 - ATHSCL HEART DISEASE OF [place] CORONARY ARTERY W/O ANG PCTRS SNOMED Code(s): 91591244 (2) Hypertension Current Visit: Yes Status: Chronic Code(s): I10 - ESSENTIAL (PRIMARY) HYPERTENSION SNOMED Code(s): 62140648 (3) Hyperlipidemia Current Visit: Yes Status: Chronic Code(s): E78.5 - HYPERLIPIDEMIA, UNSPECIFIED SNOMED Code(s): 83516747 (4) Acute exacerbation of congestive heart failure Current Visit: Yes Status: Acute Code(s): I50.9 - HEART FAILURE, UNSPECIFIED SNOMED Code(s): 23110939 (5) Ischemic cardiomyopathy Current Visit: Yes Status: Chronic Code(s): I25.5 - ISCHEMIC CARDIOMYOPATHY SNOMED Code(s): 683843618 (6) Elevated d-dimer Current Visit: Yes Status: Acute Code(s): R79.89 - OTHER SPECIFIED ABNORMAL FINDINGS OF BLOOD CHEMISTRY SNOMED Code(s): 882712698 (7) NSTEMI (non-ST elevated myocardial infarction) Current Visit: Yes Status: Acute Code(s): I21.4 - NON-ST ELEVATION (NSTEMI) MYOCARDIAL INFARCTION SNOMED Code(s): 792103969 Plan: 1. Continue aspirin, Plavix, subcu heparin, beta saw. Will increase her beta saw as tolerated. 2. Continue Lasix drip. Avoid nephro toxic medications. 3. We will remove her left pleural chest tube today. 4. Dr. Martinez consult and recommendations appreciated. 5. Wean oxygen as tolerated. Encourage incentive spirometry use 10 times every hour. 6. Continue oral amiodarone for A. fib prophylaxis. 7. Continue to hold Crestor due to her elevated liver enzymes. Once her liver enzymes have normalized we will restart statin. 8. Will monitor daily labs and x-rays. 9. GI/DVT prophylaxis. 10. Insulin drip/diabetic management per primary care physician. 11. Increase activity, out of bed to chair, ambulate as tolerated. PT/OT/ cardiac rehab following. 12. More recommendations to follow as the patient progresses in her care. Time with Patient: Greater than 30
[2018-02-03] MEDS: IPRATROPIUM-ALBUTEROL 3 ML NEB INHALATION SCH ×4 (08:31→18:49)
--- NOTE | 2018-02-03 08:55 | XR ---
EXAMINATION TYPE: XR chest 1V portable DATE OF EXAM: 02/03/2018 COMPARISON: 02/02/2018 HISTORY: Post cardiac surgery TECHNIQUE: Single frontal view of the chest is obtained. FINDINGS: Right-sided central venous catheter sheath noted. Chest tube on the left noted. No sizable pneumothorax. Cardiomegaly and postsurgical changes seen with diffuse interstitial pattern and small bilateral effusions with basilar infiltrate. IMPRESSION: 1. Persistent interstitial pattern with bilateral infiltrate and small effusion. Correlate for CHF.
--- NOTE | 2018-02-03 09:45 | P.PN ---
Subjective Progress Note Date: 02/03/18 Principal diagnosis: Severe triple-vessel coronary artery disease status post four-vessel bypass grafting This is a 72-year-old female with multiple medical problems including hypertension hyperlipidemia extrinsic ALLERGIC alveolitis as well as coronary artery disease. The patient's going to the operating room today for a bypass grafting. She's been seen by my partner for the last couple of days. She did have a CT angiogram that was negative for pulmonary embolism. When she was seen yesterday, she was doing well and she was asymptomatic. No chest pain no shortness of breath and difficulty breathing. No coughing or wheezing. Labs were in order. This morning, prior to surgery the patient still doing well. No major issues or problems. 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 Progress note dated 02/01/2018 This is a 72-year-old female who is postop day #1 status post four-vessel bypass grafting. The patient's currently on the mechanical ventilator. Her current vent settings are the assist control mode rate of 24, tidal volume of 400 she is on a FiO2 50% with a PEEP of 5. Arterial blood gases show a PaO2 of 85 a PaCO2 40 and a pH of 7.35. The patient is currently on propofol at 20 mics per kilogram per minute, Primacor at 0.2 mics per kilogram per minute, insulin drip at 2 units per hour, and Cleviprex at 2 mg an hour. The patient's IV is lactated Ringer's at 50 mL an hour. According to cardiothoracic classroom assistant , the patient can be weaned at this time. Chest x-ray show some mild fluid overload. The patient otherwise is stable. Even on a small amount of propofol , her mental status is reasonable. We'll wean that off and start the process. She has a history of non-ST segment elevation myocardial infarction, severe triple-vessel coronary artery disease, ischemic cardiomyopathy, systolic heart failure, hypertension, hyperlipidemia, extrinsic ALLERGIC alveolitis and COPD from previous heavy tobacco use. Progress note dated 02/02/2018 72-year-old female postop day #2, status post four-vessel bypass grafting. She was extubated yesterday on February 01. Currently, she is on a nonrebreather mask. In addition, she is on dopamine at 2 mcg/kg/m, a Lasix drip at 10 mg an hour, amiodarone at 0.5 mg/m and lactated Ringer's at 20 mL an hour. Chest x- ray shows just some mild fluid overload. The patient otherwise looks relatively weak. The patient seemed a little sleepy and lethargic. Does not really take in deep breaths. Chest x-ray though does not look horrible. 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 The patient's oxygen requirements have gone up since extubation, initially she was on 6 L by nasal cannula and is now on a nonrebreather. She may benefit from BiPAP therapy to help rest her. On 02/03/2018 patient is seen in follow-up in intensive care unit. She is awake , alert, seems a bit more upbeat and conversant compared to yesterday's exam. Currently down to 4 L per nasal cannula, and O2 sat is at 91%. Patient is afebrile, hemodynamically stable, patient went back into atrial fibrillation last night, and currently her heart rate is slightly tachycardic up to 109 BPM. Patient's IV amiodarone has been converted to oral amiodarone 200 mg by mouth twice a day. Maintenance IV fluids are LR at a rate of 10 ML per hour, and Lasix drip is currently at 15 mg per hour. Today's chest x-ray shows classroom assistant interstitial pattern with bilateral infiltrates and small effusion, consistent with CHF or fluid overload. Today's lab work shows to be BCR 14.6, hemoglobin is 8.5, sodium is 138, potassium 5.0, carbon dioxide is 21, BUN is 40, and creatinine is 3.67. Patient's renal profile has worsened. Patient is compliant with her incentive spirometry, is able to achieve 500 today, we'll continue to encourage breathing and coughing and obvious use. Her pain is reasonably controlled. Midsternal incision is clean dry and intact, patient has a left pleural chest tube to low continuous wall suction at -27 m of water. Small amount of thin serosanguineous drainage with 100 mL output in the last 8 hours, and 190 mL output in the last 24 hours. Cordova catheter is in place, draining clear parth urine, urine output is marginal, averaging about 30 ML per hour. As a ELICEO drain in the right lower leg with thin serosanguineous drainage, bilateral legs are Ervin wrapped. Objective - Vital Signs Vital signs: Vital Signs Temp 98.8 F 02/03/18 08:00 Pulse 109 H 02/03/18 09:00 Resp 22 02/03/18 08:00 BP 115/57 02/03/18 09:00 Pulse Ox 91 L 02/03/18 09:00 Intake & Output 02/02/18 02/03/18 02/03/18 18:59 06:59 18:59 Intake Total 1013.475 936.708 93 Output Total 364 815 175 Balance 649.475 121.708 -82 Weight 79.3 kg 84.6 kg Intake: IV 886 732.35 93 Albumin 500 Amiodarone 450 mg In 313.2 Dextrose 5% in Water 250 ml @ 1 MG/MIN 33.33 mls/ hr IV .Q7H31M [facility] Rx#: [id number] Calcium Gluconate 100 DOPamine DRIP 800 mg In 37.15 Dextrose/Water 1 500ml. bag @ 2.5 MCG/KG/MIN 7.43 mls/hr IV .Q24H [facility] Rx#: [id number] Furosemide 250 mg In 150 45 Sodium Chloride 0.9% 225 ml @ 15 MG/HR 15 mls/hr IVP .[id number] [facility] Rx#: [id number] Lactated Ringers 1,000 ml 220 160 30 @ 20 mls/hr IV .Q24H [facility] Rx#:[id number] pressure bag 66 72 18 Intake, IV Titration 127.475 204.358 Amount Amiodarone 450 mg In 117.943 Dextrose 5% in Water 250 ml @ 1 MG/MIN 34.53 mls/ hr IV .Q7H31M [facility] Rx#: [id number] Furosemide 250 mg In 173.417 Sodium Chloride 0.9% 225 ml @ 15 MG/HR 15 mls/hr IVP .[id number] [facility] Rx#: [id number] Norepinephrin 16 mg-0.9% 9.532 30.941 Ns Pmx 16 mg In 250 ml @ Titrate IV .Q0M [facility] Rx#: [id number] Blood Product 0 Rc As-1 Unit 0 [id number] Output: Chest Tube Drainage 91 110 20 Chest Tube Mediastinal 11 Left Pleural 50 110 20 Right Pleural 30 Drainage 60 165 Right Calf 60 165 Urine 213 540 155 Other: Voiding Method Indwelling Catheter Indwelling Catheter # Voids 0 ABP, PAP, CO, CI - Last Documented Arterial Blood Pressure 122/60 Pulmonary Artery Pressure 51/26 Cardiac Output 5.4 Cardiac Index 3.0 - Exam GENERAL EXAM: Alert, pleasant 72-year-old white female, comfortable in no apparent distress. Remains on 4 L per nasal cannula HEAD: Normocephalic/atraumatic. EYES: Normal reaction of pupils, equal size. Conjunctiva pink, sclera white. NOSE: Clear with pink turbinates. THROAT: No erythema or exudates. NECK: No masses, no JVD, no thyroid enlargement, no adenopathy. CHEST: No chest wall deformity. Symmetrical expansion. Left pleural chest tube is in place to continuous wall suction at 20 cm of water, small amount of serosanguineous thin drainage in the Pleur-evac. Midsternal incision is clean dry and intact, stable. LUNGS: Lung sounds are positive for fine crackles at the bilateral posterior bases CVS: Irregular rate and rhythm, normal S1 and S2, no gallops, no murmurs, no rubs ABDOMEN: Soft, nontender. No hepatosplenomegaly, normal bowel sounds, no guarding or rigidity. EXTREMITIES: No clubbing, no edema, no cyanosis, 2+ pulses and upper and lower extremities. Bilateral lower extremities are a strep, there is a right lower leg ELICEO drain with small amount of serosanguineous output MUSCULOSKELETAL: Muscle strength and tone normal. SPINE: No scoliosis or deformity SKIN: No rashes CENTRAL NERVOUS SYSTEM: Alert and oriented -3. No focal deficits, tone is normal in all 4 extremities. PSYCHIATRIC: Alert and oriented -3. Appropriate affect. Intact judgment and insight. - Labs CBC & Chem 7: 02/03/18 04:00 02/03/18 04:00 Labs: Abnormal Lab Results - Last 24 Hours (Table) 02/02/18 02/02/18 02/02/18 Range/Units 11:15 12:24 17:29 WBC (3.8-10.6) k/uL RBC (3.80-5.40) m/uL Hgb (11.4-16.0) gm/dL Hct (34.0-46.0) % RDW (11.5-15.5) % Plt Count (150-450) k/uL Neutrophils # (1.3-7.7) k/uL Lymphocytes # (1.0-4.8) k/uL Carbon Dioxide (22-30) mmol/L BUN 33 H (7-17) mg/dL Creatinine 2.53 H (0.52-1.04) mg/dL Glucose (74-99) mg/dL POC Glucose (mg/dL) 152 H 130 H (75-99) mg/dL Calcium (8.4-10.2) mg/dL Magnesium (1.6-2.3) mg/dL AST (14-36) U/L ALT (9-52) U/L Alkaline Phosphatase (38-126) U/L Total Protein (6.3-8.2) g/dL Albumin (3.5-5.0) g/dL Crossmatch 02/02/18 02/02/18 02/02/18 Range/Units 18:09 19:18 21:01 WBC 16.1 H (3.8-10.6) k/uL RBC 2.35 L (3.80-5.40) m/uL Hgb 7.1 L (11.4-16.0) gm/dL Hct 22.0 L (34.0-46.0) % RDW 15.6 H (11.5-15.5) % Plt Count 124 L (150-450) k/uL Neutrophils # (1.3-7.7) k/uL Lymphocytes # (1.0-4.8) k/uL Carbon Dioxide (22-30) mmol/L BUN (7-17) mg/dL Creatinine (0.52-1.04) mg/dL Glucose (74-99) mg/dL POC Glucose (mg/dL) 191 H (75-99) mg/dL Calcium (8.4-10.2) mg/dL Magnesium (1.6-2.3) mg/dL AST (14-36) U/L ALT (9-52) U/L Alkaline Phosphatase (38-126) U/L Total Protein (6.3-8.2) g/dL Albumin (3.5-5.0) g/dL Crossmatch See Detail 02/03/18 02/03/18 02/03/18 Range/Units 02:07 04:00 04:00 WBC 14.6 H (3.8-10.6) k/uL RBC 2.81 L (3.80-5.40) m/uL Hgb 8.5 L (11.4-16.0) gm/dL Hct 26.0 L (34.0-46.0) % RDW 16.1 H (11.5-15.5) % Plt Count 108 L (150-450) k/uL Neutrophils # 12.8 H (1.3-7.7) k/uL Lymphocytes # 0.8 L (1.0-4.8) k/uL Carbon Dioxide 21 L (22-30) mmol/L BUN 40 H (7-17) mg/dL Creatinine 3.67 H (0.52-1.04) mg/dL Glucose 124 H (74-99) mg/dL POC Glucose (mg/dL) 167 H (75-99) mg/dL Calcium 8.1 L (8.4-10.2) mg/dL Magnesium 2.8 H (1.6-2.3) mg/dL AST 695 H (14-36) U/L ALT 297 H (9-52) U/L Alkaline Phosphatase 141 H (38-126) U/L Total Protein 5.2 L (6.3-8.2) g/dL Albumin 3.3 L (3.5-5.0) g/dL Crossmatch 02/03/18 Range/Units 07:34 WBC (3.8-10.6) k/uL RBC (3.80-5.40) m/uL Hgb (11.4-16.0) gm/dL Hct (34.0-46.0) % RDW (11.5-15.5) % Plt Count (150-450) k/uL Neutrophils # (1.3-7.7) k/uL Lymphocytes # (1.0-4.8) k/uL Carbon Dioxide (22-30) mmol/L BUN (7-17) mg/dL Creatinine (0.52-1.04) mg/dL Glucose (74-99) mg/dL POC Glucose (mg/dL) 118 H (75-99) mg/dL Calcium (8.4-10.2) mg/dL Magnesium (1.6-2.3) mg/dL AST (14-36) U/L ALT (9-52) U/L Alkaline Phosphatase (38-126) U/L Total Protein (6.3-8.2) g/dL Albumin (3.5-5.0) g/dL Crossmatch Microbiology - Last 24 Hours (Table) 01/27/18 10:50 Blood Culture - Final Blood No Growth after 144 hours Assessment and Plan Plan: Assessment: Severe triple-vessel coronary disease Postop day #3, status post four-vessel bypass grafting. Postoperative respiratory failure, with extubation on February 01. Acute non-ST segment elevation myocardial infarction Severe ischemic cardiomyopathy Systolic congestive heart failure Benign essential hypertension Hyperlipidemia Extrinsic ALLERGIC alveolitis Mild COPD Previous tobacco history Plan: Continue pulmonary toileting, continue encouraging IS use. IV diuresis per cardiothoracic and nephrology service. FiO2 is down to 4 L per nasal cannula, continue to wean. Increase activity as tolerated, patient remains stable. Anticipate removal of left pleural chest tube today. Continue glycemic control , continue monitoring vital signs, labs, chest x-rays. I performed a history & physical examination of the patient and discussed their management with my nurse practitioner, Jessica Whitfield. I reviewed the nurse practitioner's note and agree with the documented findings and plan of care. Lung sounds are positive for fine rales at posterior basilar spaces. The findings and the impression was discussed with the patient. I attest to the documentation by the nurse practitioner. Critical care time is over 30 minutes Time with Patient: Greater than 30
[2018-02-03] MEDS: KETOROLAC 30 MG/ML 1 ML VIAL IVP SCH (10:53)
[2018-02-03] MEDS ORDERED: CALCIUM GLUCONATE 1,000 MG in SODIUM CHLORIDE 0.9% 100 ML IVPB ONE (11:00)
[2018-02-03] MEDS: PANTOPRAZOLE 40 MG TABLET PO SCH (11:24)
--- NOTE | 2018-02-03 11:28 | P.PN ---
Subjective Progress Note Date: 02/03/18 Principal diagnosis: Acute coronary syndrome This is a pleasant 73-year-old female patient with a past medical history significant for hypertension and dyslipidemia with no documented history of coronary artery disease or congestive heart failure presented to the hospital complaining of shortness of breath for the last 3 weeks. The patient stated that the shortness of breath was started about 3 weeks ago. Beside that she describes epigastric discomfort. She stated she developed bilateral lower extremities edema and she was seen by her primary care physician who put her on Lasix with improvement in the edema. The patient did not have any symptoms of chest pain or discomfort, dizziness or lightheadedness, or any syncope. She does have epigastric discomfort mainly. The EKG showed sinus rhythm with nonspecific changes in the inferior leads. There was also some ST and T wave abnormalities seems to be diffuse. Beside that the d-dimer came in to be abnormal and the patient is in process to have a CTA of the chest to rule out any PE. The BNP came in to be also severely abnormal and the patient was given Lasix IV in the emergency room. The first set of troponin also came in to be slightly abnormal. The patient underwent an emergent heart catheterization and that revealed severe triple-vessel coronary artery disease. She was seen and evaluated by cardiothoracic surgeon and the plan is to proceed with CABG this coming Wednesday. The patient underwent CABG 4 yesterday we'll DURON to LAD, SVG to diagonal, SVG to OM, and SVG to PDA. This is postoperative day #3. Definitely she is doing better. She continues to be on Lasix drip. She is not on any vasopressors at this point. Objective - Vital Signs Vital signs: Vital Signs Temp 98.8 F 02/03/18 08:00 Pulse 114 H 02/03/18 10:00 Resp 18 02/03/18 10:00 BP 115/57 02/03/18 09:00 Pulse Ox 92 L 02/03/18 10:00 Intake & Output 02/02/18 02/03/18 02/03/18 18:59 06:59 18:59 Intake Total 1013.475 936.708 124 Output Total 364 815 235 Balance 649.475 121.708 -111 Weight 79.3 kg 84.6 kg Intake: IV 886 732.35 124 Albumin 500 Amiodarone 450 mg In 313.2 Dextrose 5% in Water 250 ml @ 1 MG/MIN 33.33 mls/ hr IV .Q7H31M [facility] Rx#: [id number] Calcium Gluconate 100 DOPamine DRIP 800 mg In 37.15 Dextrose/Water 1 500ml. bag @ 2.5 MCG/KG/MIN 7.43 mls/hr IV .Q24H [facility] Rx#: [id number] Furosemide 250 mg In 150 60 Sodium Chloride 0.9% 225 ml @ 15 MG/HR 15 mls/hr IVP .[id number] [facility] Rx#: [id number] Lactated Ringers 1,000 ml 220 160 40 @ 20 mls/hr IV .Q24H [facility] Rx#:[id number] pressure bag 66 72 24 Intake, IV Titration 127.475 204.358 Amount Amiodarone 450 mg In 117.943 Dextrose 5% in Water 250 ml @ 1 MG/MIN 34.53 mls/ hr IV .Q7H31M [facility] Rx#: [id number] Furosemide 250 mg In 173.417 Sodium Chloride 0.9% 225 ml @ 15 MG/HR 15 mls/hr IVP .[id number] [facility] Rx#: [id number] Norepinephrin 16 mg-0.9% 9.532 30.941 Ns Pmx 16 mg In 250 ml @ Titrate IV .Q0M [facility] Rx#: [id number] Blood Product 0 Rc As-1 Unit 0 [id number] Output: Chest Tube Drainage 91 110 20 Chest Tube Mediastinal 11 Left Pleural 50 110 20 Right Pleural 30 Drainage 60 165 Right Calf 60 165 Urine 213 540 215 Other: Voiding Method Indwelling Catheter Indwelling Catheter Indwelling Catheter # Voids 0 # Bowel Movements 0 ABP, PAP, CO, CI - Last Documented Arterial Blood Pressure 109/57 Pulmonary Artery Pressure 51/26 Cardiac Output 5.4 Cardiac Index 3.0 - Constitutional General appearance: Present: no acute distress - Labs CBC & Chem 7: 02/03/18 04:00 02/03/18 04:00 Labs: Abnormal Lab Results - Last 24 Hours (Table) 02/02/18 02/02/18 02/02/18 Range/Units 11:15 12:24 17:29 WBC (3.8-10.6) k/uL RBC (3.80-5.40) m/uL Hgb (11.4-16.0) gm/dL Hct (34.0-46.0) % RDW (11.5-15.5) % Plt Count (150-450) k/uL Neutrophils # (1.3-7.7) k/uL Lymphocytes # (1.0-4.8) k/uL Carbon Dioxide (22-30) mmol/L BUN 33 H (7-17) mg/dL Creatinine 2.53 H (0.52-1.04) mg/dL Glucose (74-99) mg/dL POC Glucose (mg/dL) 152 H 130 H (75-99) mg/dL Calcium (8.4-10.2) mg/dL Magnesium (1.6-2.3) mg/dL AST (14-36) U/L ALT (9-52) U/L Alkaline Phosphatase (38-126) U/L Total Protein (6.3-8.2) g/dL Albumin (3.5-5.0) g/dL Crossmatch 02/02/18 02/02/18 02/02/18 Range/Units 18:09 19:18 21:01 WBC 16.1 H (3.8-10.6) k/uL RBC 2.35 L (3.80-5.40) m/uL Hgb 7.1 L (11.4-16.0) gm/dL Hct 22.0 L (34.0-46.0) % RDW 15.6 H (11.5-15.5) % Plt Count 124 L (150-450) k/uL Neutrophils # (1.3-7.7) k/uL Lymphocytes # (1.0-4.8) k/uL Carbon Dioxide (22-30) mmol/L BUN (7-17) mg/dL Creatinine (0.52-1.04) mg/dL Glucose (74-99) mg/dL POC Glucose (mg/dL) 191 H (75-99) mg/dL Calcium (8.4-10.2) mg/dL Magnesium (1.6-2.3) mg/dL AST (14-36) U/L ALT (9-52) U/L Alkaline Phosphatase (38-126) U/L Total Protein (6.3-8.2) g/dL Albumin (3.5-5.0) g/dL Crossmatch See Detail 02/03/18 02/03/18 02/03/18 Range/Units 02:07 04:00 04:00 WBC 14.6 H (3.8-10.6) k/uL RBC 2.81 L (3.80-5.40) m/uL Hgb 8.5 L (11.4-16.0) gm/dL Hct 26.0 L (34.0-46.0) % RDW 16.1 H (11.5-15.5) % Plt Count 108 L (150-450) k/uL Neutrophils # 12.8 H (1.3-7.7) k/uL Lymphocytes # 0.8 L (1.0-4.8) k/uL Carbon Dioxide 21 L (22-30) mmol/L BUN 40 H (7-17) mg/dL Creatinine 3.67 H (0.52-1.04) mg/dL Glucose 124 H (74-99) mg/dL POC Glucose (mg/dL) 167 H (75-99) mg/dL Calcium 8.1 L (8.4-10.2) mg/dL Magnesium 2.8 H (1.6-2.3) mg/dL AST 695 H (14-36) U/L ALT 297 H (9-52) U/L Alkaline Phosphatase 141 H (38-126) U/L Total Protein 5.2 L (6.3-8.2) g/dL Albumin 3.3 L (3.5-5.0) g/dL Crossmatch 02/03/18 Range/Units 07:34 WBC (3.8-10.6) k/uL RBC (3.80-5.40) m/uL Hgb (11.4-16.0) gm/dL Hct (34.0-46.0) % RDW (11.5-15.5) % Plt Count (150-450) k/uL Neutrophils # (1.3-7.7) k/uL Lymphocytes # (1.0-4.8) k/uL Carbon Dioxide (22-30) mmol/L BUN (7-17) mg/dL Creatinine (0.52-1.04) mg/dL Glucose (74-99) mg/dL POC Glucose (mg/dL) 118 H (75-99) mg/dL Calcium (8.4-10.2) mg/dL Magnesium (1.6-2.3) mg/dL AST (14-36) U/L ALT (9-52) U/L Alkaline Phosphatase (38-126) U/L Total Protein (6.3-8.2) g/dL Albumin (3.5-5.0) g/dL Crossmatch Microbiology - Last 24 Hours (Table) 01/27/18 10:50 Blood Culture - Final Blood No Growth after 144 hours Assessment and Plan Assessment: assessment #1 severe triple-vessel and status post CABG #2 severe ischemic cardiomyopathy. #3 congestive heart failure exacerbation secondary to systolic dysfunction #4 hypertension #5 dyslipidemia Plan #1 continue the current medical treatment #2 follow-up with the patient. Thank you for allowing us participate in her care and we'll continue following up with the patient
[2018-02-03 11:32] LABS: Glucose,Whole Blood 134 mg/dL (75-99)
--- NOTE | 2018-02-03 11:36 | PN ---
PROGRESS NOTE Patient is seen for followup for acute kidney injury, oliguric ATN postop after bypass surgery. Patient was hypotensive yesterday following which her urine output dropped. She was also fluid overloaded and started on Lasix drip. Her urine output improved for a couple of hours and then it went down again. Hemoglobin was at 7. Patient was transfused 1 unit packed RBCs last night after which her blood pressure improved. Levophed was discontinued. Patient was also started on dopamine. However, she went into A. fib with RVR and therefore, the dopamine was discontinued last night. Currently, she is on oral amiodarone. She did receive a bolus of IV amiodarone. Patient states she is feeling better. Urine output is now at about 70 to 75 mL/hour. Her breathing has improved. EXAMINATION: Blood pressure 122/60, heart rate of 101 per minute. She is afebrile. Examination of the heart, S1, S2. Examination of the lungs, decreased breath sounds at the bases. Abdomen is soft, nontender. Exam of the lower extremities shows edema, bilaterally. Both extremities are wrapped. The patient has a drain in her right lower extremity which is leg for vein harvest. LAB: Show sodium 138, potassium 5.0, BUN 40, serum creatinine 3.67, hemoglobin 8.5 g/dL. ASSESSMENT: 1. Acute kidney injury. Oliguric acute tubular necrosis secondary to hypotension and hypoperfusion. Currently improving. Serum creatinine is much higher; however, patient's urine output has improved. Therefore, we will continue to monitor the renal function closely. Continue to avoid nephrotoxic agents and continue to avoid hypotension. Monitor CBC and avoid severe anemia and transfuse as needed. 2. Elevated liver enzymes secondary to hypoperfusion. 3. Status post quadruple coronary artery bypass surgery. 4. Status post [id number] myocardial infarction. 5. Cardiomyopathy with ejection fraction 25% to30% prior to bypass surgery. PLAN: Continue with the Lasix drip and repeat labs in a.m. Continue to avoid nephrotoxic agents. MMODL / IJN: [id number] /
[2018-02-03] MEDS: LACTATED RINGERS 1,000 ML IV SCH (15:13)
[2018-02-03 16:53] LABS: Glucose,Whole Blood 115 mg/dL (75-99)
[2018-02-03] MEDS: FUROSEMIDE 250 MG in SODIUM CHLORIDE 0.9% 225 ML IVP SCH ×2 (16:53→20:30)
[2018-02-03 20:46] LABS: Glucose,Whole Blood 119 mg/dL (75-99)
[2018-02-03] MEDS: SENNOSIDES-DOCUSATE SODIUM 1 EACH TAB PO SCH (22:49)
--- NOTE | 2018-02-03 23:51 | P.PN ---
Subjective Progress Note Date: 02/03/18 Principal diagnosis: Status post cardiac catheterization. Triple-vessel disease This is a pleasant 73-year-old female patient with a past medical history significant for hypertension and dyslipidemia with no documented history of coronary artery disease or congestive heart failure presented to the hospital complaining of shortness of breath for the last 3 weeks. The patient stated that the shortness of breath was started about 3 weeks ago. Beside that she describes epigastric discomfort. She stated she developed bilateral lower extremities edema and she was seen by her primary care physician who put her on Lasix with improvement in the edema. The patient did not have any symptoms of chest pain or discomfort, dizziness or lightheadedness , or any syncope. She does have epigastric discomfort mainly. The EKG showed sinus rhythm with nonspecific changes in the inferior leads. There was also some ST and T wave abnormalities seems to be diffuse. Beside that the d-dimer came in to be abnormal and the patient is in process to have a CTA of the chest to rule out any PE. The BNP came in to be also severely abnormal and the patient was given Lasix IV in the emergency room. The first set of troponin also came in to be slightly abnormal. The patient underwent an emergent heart catheterization and that revealed severe triple-vessel coronary artery disease. She was seen and evaluated by cardiothoracic surgeon and the plan is to proceed with CABG this coming Wednesday. 01/28/2018 Patient seen and examined at bedside in ICU; family members at bedside; she denies any chest pain or shortness of breath; patient is continued on aspirin, metoprolol, Lasix and Aldactone; statins and lisinopril has been continued; echocardiogram showed impaired left ventricular function with ejection fraction of 25-30% 01/29/2018 Patient remains in ICU; sitting up in a chair and denies any chest pain or shortness of breath; overall patient seems to be doing better 01/30/2018 Patient remains in ICU and remains chest pain-free; patient relates that her swelling in both lower extremities is improved; she remains on Lasix and Aldactone Patient is scheduled for CABG in the morning 01/31/2018 Patient underwent quadruple bypass graft today currently intubated postoperatively. Pulmonary and CT surgery is following. Chest x-ray showed left lower lung atelectasis and possible postoperative changes. 02/01/2018 Patient is status post quadruple bypass graft. Patient was successfully weaned off of ventilator. Next and chest x-ray showed mild fluid overload. Otherwise patient is awake alert and lying in the bed comfortable.. Patient went to atrial fibrillation and was started on amiodarone. No fever no chills. No chest pain or worsening shortness of breath. Complete review of systems could not be apparent from the patient. 02/02/2018 Patient is more awake and alert today. Able to also simple questions. Currently converted back to sinus rhythm. Amiodarone has been changed to oral. Patient is on dopamine drip at low-dose. Continued on IV Lasix drip. Patient is being converted on aspirin, Plavix and statins. Cardiology and pulmonary is following. No fever no chills. Patient denied any worsening shortness of breath or chest pain. 02/03/2018 Patient is awake and oriented able to sit in the chair and is improving clinically and patient is maintained on Lasix drip. Off pressors support. No other acute overnight issues. Cardiology and pulmonary is following. Clinically improving. Active Medications Generic Name Dose Route Start Last Admin Trade Name Freq PRN Reason Stop Dose Admin Hydrocodone Bitart/Acetaminophen 2 each 02/01/18 14:36 02/03/18 07:57 [place] 5-325 PO 2 each Q4HR PRN Administration Severe Pain Hydrocodone Bitart/Acetaminophen 1 each 02/01/18 14:36 02/03/18 17:58 [place] 5-325 PO 1 each Q4HR PRN Administration Moderate Pain Albuterol/Ipratropium 3 ml 02/01/18 14:37 [place]one[place] 0.5 Mg-3 Mg/3 Ml Soln INHALATION RT-Q2H PRN Shortness Of Breath Or Wheezing Albuterol/Ipratropium 3 ml 02/01/18 14:37 02/03/18 18:49 Duoneb 0.5 Mg-3 Mg/3 Ml Soln INHALATION 3 ml RT-QID [facility] Administration Amiodarone HCl 400 mg 02/03/18 21:00 02/03/18 22:49 Cordarone PO 400 mg BID [facility] Administration Aspirin 325 mg 02/01/18 09:00 02/03/18 07:59 Aspirin PO 325 mg DAILY [facility] Administration Benzocaine/Menthol 1 each 01/31/18 14:43 Cepacol Lozenge MUCOUS MEM Q2H PRN Sore Throat Bisacodyl 10 mg 02/01/18 14:36 Dulcolax RECTAL DAILY PRN Constipation Clopidogrel Bisulfate 75 mg 02/01/18 09:00 02/03/18 07:59 Plavix PO 75 mg DAILY [facility] Administration Heparin Sodium (Porcine) 5,000 unit 02/01/18 00:00 02/03/18 15:39 Heparin SQ 5,000 unit Q8HR [facility] Administration Lactated Ringer's 1,000 mls @ 20 mls/hr 01/31/18 14:43 02/03/18 15:13 Lactated Ringers IV 20 mls/hr .Q24H [facility] Administration Furosemide 250 mg/ Sodium 250 mls @ 20 mls/hr 02/02/18 08:00 02/03/18 20:30 Chloride IVP 15 mg/hr .[id number] [facility] 15 mls/hr 20 MG/HR Administration Norepinephrine Bitartrate 16 mg in 250 mls @ 0 mls/hr 02/02/18 11:30 21:30 Levophed-0.9% Nacl 16 Mg/250ml Pmx IV 0 mcg/min .Q0M [facility] 0 mls/hr Protocol Titration Titrate Insulin Aspart 0 unit 02/01/18 17:30 02/03/18 22:53 Novolog SQ Not Given [id number] [facility] Protocol Magnesium Hydroxide 2,400 mg 02/01/18 14:36 Milk Of Magnesia PO BID PRN Constipation Metoclopramide HCl 10 mg 01/31/18 14:43 Reglan IVP Q4H PRN Nausea And Vomiting Metoprolol Tartrate 12.5 mg 02/02/18 09:00 02/03/18 22:59 Lopressor PO Not Given BID [facility] Miscellaneous Information 1 each 01/31/18 14:43 Magnesium Per Protocol MISCELLANE DAILY PRN Per Protocol Protocol Miscellaneous Information 1 each 01/31/18 14:43 Phosphorus Per Protocol MISCELLANE DAILY PRN Per Protocol Protocol Miscellaneous Information 1 each 01/31/18 14:43 Potassium Per Protocol MISCELLANE DAILY PRN Per Protocol Protocol Ondansetron HCl 4 mg 01/31/18 14:43 02/02/18 07:58 Zofran IVP 4 mg Q6HR PRN Administration Nausea And Vomiting Pantoprazole Sodium 40 mg 02/03/18 07:30 02/03/18 11:24 Protonix PO 40 mg [id number] [facility] Administration Senna/Docusate Sodium 2 each 02/01/18 21:00 02/03/18 22:49 Senokot-S PO 2 each HS [facility] Administration Sodium Chloride 10 ml 01/31/18 21:00 02/03/18 22:59 Saline Flush IV 10 ml BID [facility] Administration Objective - Vital Signs Vital signs: Vital Signs Temp 98.2 F 02/03/18 12:00 Pulse 102 H 02/03/18 15:48 Resp 16 02/03/18 15:48 BP 115/57 02/03/18 09:00 Pulse Ox 93 L 02/03/18 14:00 Intake & Output 02/02/18 02/03/18 02/03/18 18:59 06:59 18:59 Intake Total 1013.475 936.708 823 Output Total 364 815 365 Balance 649.475 121.708 458 Weight 79.3 kg 84.6 kg Intake: IV 886 732.35 573 Albumin 500 Amiodarone 450 mg In 313.2 250 Dextrose 5% in Water 250 ml @ 1 MG/MIN 33.33 mls/ hr IV .Q7H31M [facility] Rx#: [id number] Calcium Gluconate 100 100 DOPamine DRIP 800 mg In 37.15 Dextrose/Water 1 500ml. bag @ 2.5 MCG/KG/MIN 7.43 mls/hr IV .Q24H [facility] Rx#: [id number] Furosemide 250 mg In 150 105 Sodium Chloride 0.9% 225 ml @ 15 MG/HR 15 mls/hr IVP .[id number] [facility] Rx#: [id number] Lactated Ringers 1,000 ml 220 160 70 @ 20 mls/hr IV .Q24H [facility] Rx#:[id number] pressure bag 66 72 48 Intake, IV Titration 127.475 204.358 250 Amount Amiodarone 450 mg In 117.943 Dextrose 5% in Water 250 ml @ 1 MG/MIN 34.53 mls/ hr IV .Q7H31M [facility] Rx#: [id number] Furosemide 250 mg In 173.417 250 Sodium Chloride 0.9% 225 ml @ 15 MG/HR 15 mls/hr IVP .[id number] [facility] Rx#: [id number] Norepinephrin 16 mg-0.9% 9.532 30.941 Ns Pmx 16 mg In 250 ml @ Titrate IV .Q0M [facility] Rx#: [id number] Blood Product 0 Rc As-1 Unit 0 [id number] Output: Chest Tube Drainage 91 110 20 Chest Tube Mediastinal 11 Left Pleural 50 110 20 Right Pleural 30 Drainage 60 165 Right Calf 60 165 Urine 213 540 345 Other: Voiding Method Indwelling Catheter Indwelling Catheter Indwelling Catheter # Voids 0 0 # Bowel Movements 0 ABP, PAP, CO, CI - Last Documented Arterial Blood Pressure 112/63 Pulmonary Artery Pressure 51/26 Cardiac Output 5.4 Cardiac Index 3.0 - Exam PHYSICAL EXAMINATION: Patient is lying in the bed comfortably, no acute distress, awake alert and oriented HEENT: Normocephalic. Neck is supple. Pupils reactive. Nostrils clear. Oral cavity is moist. Ears reveal no drainage. Neck reveals no JVD, carotid bruits, or thyromegaly. CHEST EXAMINATION: Trachea is central. Symmetrical expansion. Bibasilar minimal crackles. No wheezing Chest tubes in place.. CARDIAC: Normal S1, S2 with no gallops. No murmurs ABDOMEN: Soft. Bowel sounds normal. No organomegaly. No abdominal bruits. Extremities: reveal no edema. No clubbing or cyanosis Neurologically awake alert and oriented 3. No focal deficits noted Skin: No rash or skin lesions. Psychiatric: Could not be assessed completely Musculoskeletal: No joint swelling or deformity. Normal range of motion. - Labs CBC & Chem 7: 02/03/18 04:00 02/03/18 04:00 Labs: Abnormal Lab Results - Last 24 Hours (Table) 02/02/18 02/02/18 02/02/18 Range/Units 18:09 19:18 21:01 WBC 16.1 H (3.8-10.6) k/uL RBC 2.35 L (3.80-5.40) m/uL Hgb 7.1 L (11.4-16.0) gm/dL Hct 22.0 L (34.0-46.0) % RDW 15.6 H (11.5-15.5) % Plt Count 124 L (150-450) k/uL Neutrophils # (1.3-7.7) k/uL Lymphocytes # (1.0-4.8) k/uL Carbon Dioxide (22-30) mmol/L BUN (7-17) mg/dL Creatinine (0.52-1.04) mg/dL Glucose (74-99) mg/dL POC Glucose (mg/dL) 191 H (75-99) mg/dL Calcium (8.4-10.2) mg/dL Magnesium (1.6-2.3) mg/dL AST (14-36) U/L ALT (9-52) U/L Alkaline Phosphatase (38-126) U/L Total Protein (6.3-8.2) g/dL Albumin (3.5-5.0) g/dL Crossmatch See Detail 02/03/18 02/03/18 02/03/18 Range/Units 02:07 04:00 04:00 WBC 14.6 H (3.8-10.6) k/uL RBC 2.81 L (3.80-5.40) m/uL Hgb 8.5 L (11.4-16.0) gm/dL Hct 26.0 L (34.0-46.0) % RDW 16.1 H (11.5-15.5) % Plt Count 108 L (150-450) k/uL Neutrophils # 12.8 H (1.3-7.7) k/uL Lymphocytes # 0.8 L (1.0-4.8) k/uL Carbon Dioxide 21 L (22-30) mmol/L BUN 40 H (7-17) mg/dL Creatinine 3.67 H (0.52-1.04) mg/dL Glucose 124 H (74-99) mg/dL POC Glucose (mg/dL) 167 H (75-99) mg/dL Calcium 8.1 L (8.4-10.2) mg/dL Magnesium 2.8 H (1.6-2.3) mg/dL AST 695 H (14-36) U/L ALT 297 H (9-52) U/L Alkaline Phosphatase 141 H (38-126) U/L Total Protein 5.2 L (6.3-8.2) g/dL Albumin 3.3 L (3.5-5.0) g/dL Crossmatch 02/03/18 02/03/18 02/03/18 Range/Units 07:34 11:30 16:52 WBC (3.8-10.6) k/uL RBC (3.80-5.40) m/uL Hgb (11.4-16.0) gm/dL Hct (34.0-46.0) % RDW (11.5-15.5) % Plt Count (150-450) k/uL Neutrophils # (1.3-7.7) k/uL Lymphocytes # (1.0-4.8) k/uL Carbon Dioxide (22-30) mmol/L BUN (7-17) mg/dL Creatinine (0.52-1.04) mg/dL Glucose (74-99) mg/dL POC Glucose (mg/dL) 118 H 134 H 115 H (75-99) mg/dL Calcium (8.4-10.2) mg/dL Magnesium (1.6-2.3) mg/dL AST (14-36) U/L ALT (9-52) U/L Alkaline Phosphatase (38-126) U/L Total Protein (6.3-8.2) g/dL Albumin (3.5-5.0) g/dL Crossmatch Assessment and Plan Assessment: Acute non-ST elevated [facility]. Status post Cardiac catheterization showed triple- vessel disease. Status post quadruple bypass graft on 01/31/2018 Atrial fibrillation with rapid ventricular rate. Started on amiodarone Exertional shortness of breath for 2 weeks prior to admission Acute CHF with systolic dysfunction Severe ischemic cardio myopathy Leukocytosis. Likely reactive. Hypertension hyperlipidemia Obesity DVT prophylaxis Plan: Continue with the aspirin statins and metoprolol and lisinopril and Aldactone. Continue with Lasix drip. Continue with amiodarone changed to oral. Cardiology and cardiac surgery is following. We'll continue to monitor renal function. Follow-up CBC and BMP tomorrow. Continue to monitor the patient in ICU. Further recommendations based on the clinical course. Time with Patient: Greater than 30
[2018-02-04] MEDS: FUROSEMIDE 250 MG in SODIUM CHLORIDE 0.9% 225 ML IVP SCH ×4 (00:33→15:35)
[2018-02-04] MEDS: HEPARIN SODIUM,PORCINE 5,000 UNIT/ML 1 ML VIAL SQ SCH ×3 (00:34→15:36)
[2018-02-04 02:40] LABS: Glucose,Whole Blood 87 mg/dL (75-99)
[2018-02-04] MEDS: HYDROcodone/APAP 5-325MG 1 EACH TAB PO PRN ×2 (02:41→16:16)
[2018-02-04] MEDS: INSULIN ASPART 100 UNIT/ML 1 ML 10 ML VIAL SQ SCH ×5 (03:01→20:40)
[2018-02-04 04:54] LABS: Anisocytosis Slight; Basophils % (A) 0 %; Eosinophils # (A) 0.4 k/uL (0-0.7); Eosinophils % (A) 3 %; HCT 24.9 % (34.0-46.0); HGB 8.5 gm/dL (11.4-16.0); Lymphocytes # (A) 0.8 k/uL (1.0-4.8); Lymphocytes % (A) 6 %; MCHC 34.1 g/dL (31.0-37.0); MCV 91.1 fL (80.0-100.0); Mean Platelet Volume 8.2; Monocytes # (A) 0.7 k/uL (0-1.0); Monocytes % (A) 6 %; Neutrophils # (A) 10.4 k/uL (1.3-7.7); Neutrophils % (A) 83 %; Platelet Count 108 k/uL (150-450); RBC 2.73 m/uL (3.80-5.40); WBC 12.6 k/uL (3.8-10.6)
[2018-02-04 05:36] LABS: Ionized Calcium 4.9 mg/dL (4.5-5.3)
[2018-02-04 05:46] LABS: Albumin 3.1 g/dL (3.5-5.0); Calcium 8.6 mg/dL (8.4-10.2); Magnesium 2.6 mg/dL (1.6-2.3); Phosphorus 6.6 mg/dL (2.5-4.5); Potassium 5.2 mmol/L (3.5-5.1); Total Bilirubin 0.6 mg/dL (0.2-1.3); Total Protein 5.1 g/dL (6.3-8.2)
[2018-02-04 07:12] LABS: Glucose,Whole Blood 97 mg/dL (75-99)
[2018-02-04] MEDS: IPRATROPIUM-ALBUTEROL 3 ML NEB INHALATION SCH ×4 (07:56→19:48)
--- NOTE | 2018-02-04 08:31 | P.PN ---
Subjective Progress Note Date: 02/04/18 Principal diagnosis: Symptomatic multivessel coronary artery disease, with left main disease, non-ST elevated myocardial infarction this admission, congestive heart failure exacerbation secondary to systolic dysfunction, severe ischemic cardiomyopathy with a preoperative ejection fraction of 25-30%, history of gout, history of syncope 2 years ago, obesity, remote history of nicotine dependence quit 30 years ago, hypertension, hyperlipidemia, and recent pneumonia. POD #4 urgent coronary artery bypass grafting 4 using the left internal mammary artery to the mid left anterior descending artery, a reverse greater saphenous vein graft from the aorta to the diagonal artery, a reverse greater saphenous vein graft from the aorta to the first obtuse marginal artery, a reverse greater saphenous vein graft from the aorta to the posterior descending artery. Endoscopic harvesting of the right greater saphenous vein. Intraoperative transesophageal echocardiogram and epi-aortic scanning. Intraoperative graft flow measurements using the [facility]. Postoperative acute elevation of AST and ALT, an unexpected but potential outcome of surgery. Postoperative paroxysmal atrial fibrillation, an expected outcome of surgery. Acute kidney injury, acute tubular necrosis secondary to hemodynamic changes and hypotension. Patient is currently sitting up to bedside chair. She is in no acute distress. She is complaining of pain to her bilateral feet right greater than left. She currently has ice packs in place to both of her feet. She reports that she ambulated in the ICU hallway 3 times yesterday with minimal assistance. She is currently on 3 L nasal cannula with oxygen saturations 97%. She is achieving 750 mL on her incentive spirometry with encouragement. Objective - Vital Signs Vital signs: Vital Signs Temp 98.1 F 02/04/18 04:00 Pulse 66 02/04/18 07:58 Resp 22 02/04/18 04:00 BP 115/57 02/03/18 09:00 Pulse Ox 96 02/04/18 07:00 Intake & Output 02/03/18 02/04/18 02/04/18 18:59 06:59 18:59 Intake Total 1163 340.25 26 Output Total 575 795 95 Balance 588 -454.75 -69 Weight 85 kg Intake: IV 913 286 26 Amiodarone 450 mg In 500 Dextrose 5% in Water 250 ml @ 1 MG/MIN 33.33 mls/ hr IV .Q7H31M [facility] Rx#: [id number] Calcium Gluconate 100 Furosemide 250 mg In 105 Sodium Chloride 0.9% 225 ml @ 20 MG/HR 20 mls/hr IVP .[id number] [facility] Rx#: [id number] Lactated Ringers 1,000 ml 130 220 20 @ 20 mls/hr IV .Q24H [facility] Rx#:[id number] pressure bag 78 66 6 Intake, IV Titration 250 54.25 Amount Furosemide 250 mg In 250 54.25 Sodium Chloride 0.9% 225 ml @ 20 MG/HR 20 mls/hr IVP .[id number] [facility] Rx#: [id number] Output: Chest Tube Drainage 20 Left Pleural 20 Drainage 40 170 Right Calf 40 170 Urine 515 625 95 Other: Voiding Method Indwelling Catheter Indwelling Catheter # Voids 0 0 # Bowel Movements 0 0 ABP, PAP, CO, CI - Last Documented Arterial Blood Pressure 113/43 Pulmonary Artery Pressure 51/26 Cardiac Output 5.4 Cardiac Index 3.0 - Constitutional General appearance: Present: cooperative, no acute distress, obese - Neck Details: Neck is supple, no JVD or lymphadenopathy. Right internal jugular Cordis in place to continuous CVP monitoring. Current CVP pressure is 10 mmHg. - Respiratory Details: Lung sounds essentially clear to her bilateral upper lobes, scattered crackles to her bilateral bases. Respirations are symmetrical and nonlabored. Oxygen saturation are 97% on 3 L nasal cannula. She is achieving 750 mL on her incentive spirometry. - Cardiovascular Details: Regular rhythm and rate. S1 and S2 present, negative for S3, gallop or murmur. Sternum is stable. Bedside telemetry showing normal sinus rhythm heart rate 66. Heart hugger and surgical support bra in place, she is demonstrating appropriate use of the heart hugger. Atrial and ventricular epicardial pacemaker wires intact and grounded. Knee-high RODO hose and sequential compression devices in place to her bilateral lower extremities. +1 edema to her bilateral upper and lower extremities. - Gastrointestinal Gastrointestinal Comment(s): Abdomen is soft, nontender and nondistended. Hypoactive bowel sounds all 4 abdominal quadrants. Tolerating oral intake. No bowel movement since surgery. - Genitourinary Genitourinary Comment(s): Cordova catheter for accurate I&O. Draining clear yellow urine. 425 mL output in the last 8 hours. - Integumentary Integumentary Comment(s): Skin is warm and dry. No clubbing or cyanosis present. Midline sternal incision clean and dry and well approximated. No drainage or redness present. Dermabond dressing clean and dry. Right leg EVH harvest site clean and dry and approximated. No drainage or redness present. Right lower leg ELICEO drain in place, draining thin serosanguineous drainage. 150 mm output in the last 8 hours. - Neurologic Neurologic: Present: CNII-XII intact - Musculoskeletal Musculoskeletal: Present: gait normal, strength equal bilaterally - Psychiatric Psychiatric: Present: A&O x's 3, appropriate affect, intact judgment & insight - Allied health notes Allied health notes reviewed: nursing - Labs CBC & Chem 7: 02/04/18 04:40 02/04/18 04:40 Labs: Abnormal Lab Results - Last 24 Hours (Table) 02/03/18 02/03/18 02/03/18 Range/Units 11:30 16:52 20:44 WBC (3.8-10.6) k/uL RBC (3.80-5.40) m/uL Hgb (11.4-16.0) gm/dL Hct (34.0-46.0) % RDW (11.5-15.5) % Plt Count (150-450) k/uL Neutrophils # (1.3-7.7) k/uL Lymphocytes # (1.0-4.8) k/uL Sodium (137-145) mmol/L Potassium (3.5-5.1) mmol/L Carbon Dioxide (22-30) mmol/L BUN (7-17) mg/dL Creatinine (0.52-1.04) mg/dL POC Glucose (mg/dL) 134 H 115 H 119 H (75-99) mg/dL Phosphorus (2.5-4.5) mg/dL Magnesium (1.6-2.3) mg/dL AST (14-36) U/L ALT (9-52) U/L Alkaline Phosphatase (38-126) U/L Total Protein (6.3-8.2) g/dL Albumin (3.5-5.0) g/dL 02/04/18 02/04/18 Range/Units 04:40 04:40 WBC 12.6 H (3.8-10.6) k/uL RBC 2.73 L (3.80-5.40) m/uL Hgb 8.5 L (11.4-16.0) gm/dL Hct 24.9 L (34.0-46.0) % RDW 17.0 H (11.5-15.5) % Plt Count 108 L (150-450) k/uL Neutrophils # 10.4 H (1.3-7.7) k/uL Lymphocytes # 0.8 L (1.0-4.8) k/uL Sodium 136 L (137-145) mmol/L Potassium 5.2 H (3.5-5.1) mmol/L Carbon Dioxide 21 L (22-30) mmol/L BUN 50 H (7-17) mg/dL Creatinine 4.70 H (0.52-1.04) mg/dL POC Glucose (mg/dL) (75-99) mg/dL Phosphorus 6.6 H (2.5-4.5) mg/dL Magnesium 2.6 H (1.6-2.3) mg/dL AST 303 H (14-36) U/L ALT 176 H (9-52) U/L Alkaline Phosphatase 180 H (38-126) U/L Total Protein 5.1 L (6.3-8.2) g/dL Albumin 3.1 L (3.5-5.0) g/dL - Imaging and Cardiology Chest x-ray: report reviewed, image reviewed Assessment and Plan (1) Coronary artery disease Current Visit: Yes Status: Chronic Code(s): I25.10 - ATHSCL HEART DISEASE OF [place] CORONARY ARTERY W/O ANG PCTRS SNOMED Code(s): 47617175 (2) Hypertension Current Visit: Yes Status: Chronic Code(s): I10 - ESSENTIAL (PRIMARY) HYPERTENSION SNOMED Code(s): 73939911 (3) Hyperlipidemia Current Visit: Yes Status: Chronic Code(s): E78.5 - HYPERLIPIDEMIA, UNSPECIFIED SNOMED Code(s): 77067802 (4) Acute exacerbation of congestive heart failure Current Visit: Yes Status: Acute Code(s): I50.9 - HEART FAILURE, UNSPECIFIED SNOMED Code(s): 90594227 (5) Ischemic cardiomyopathy Current Visit: Yes Status: Chronic Code(s): I25.5 - ISCHEMIC CARDIOMYOPATHY SNOMED Code(s): 882664063 (6) Elevated d-dimer Current Visit: Yes Status: Acute Code(s): R79.89 - OTHER SPECIFIED ABNORMAL FINDINGS OF BLOOD CHEMISTRY SNOMED Code(s): 423801950 (7) NSTEMI (non-ST elevated myocardial infarction) Current Visit: Yes Status: Acute Code(s): I21.4 - NON-ST ELEVATION (NSTEMI) MYOCARDIAL INFARCTION SNOMED Code(s): 208709348 Plan: 1. Continue aspirin, Plavix, subcu heparin, beta saw. Will increase her beta saw as tolerated. 2. Continue Lasix drip. Avoid nephro toxic medications. 3. Wean oxygen as tolerated. Encourage incentive spirometry use 10 times every hour 4. Continue oral amiodarone 400 mg by mouth twice a day for A. fib prophylaxis. 5. Continue to hold Crestor due to her elevated liver enzymes. Once her liver enzymes have normalized we will restart statin. 6. Will monitor daily labs and chest x-rays. 7. GI/DVT prophylaxis. 8. Increase activity, out of bed to chair, ambulate as tolerated. PT/OT/ cardiac rehab following. 9. Insulin drip/diabetic management per primary care physician. 10. Pulmonary recommendations per Dr. Amador. 11. More recommendations to follow based on her clinical course. Time with Patient: Greater than 30
--- NOTE | 2018-02-04 08:47 | XR ---
EXAMINATION TYPE: XR chest 1V portable DATE OF EXAM: 02/04/2018 COMPARISON: Prior chest x-ray 02/03/2018 HISTORY: Post cardiac surgery TECHNIQUE: Single frontal view of the chest is obtained. FINDINGS: Patient is post median sternotomy. Heart remains enlarged. Left-sided chest tube has been removed in the interval. No sizable pneumothorax. Right jugular central venous sheath remains in plac e. There are overlying cardiac leads. Interstitium and central vascularity mildly prominent. No sizab le effusion. Suspect epicardial pacing lead in place. IMPRESSION: Interval chest tube removal. Correlate for pulmonary venous hypertension and interstitia l edema, volume overload. Postop changes.
[2018-02-04] MEDS: AMIODARONE 200 MG TAB PO SCH ×2 (08:51→19:06)
[2018-02-04] MEDS: CLOPIDOGREL 75 MG TAB PO SCH (08:51)
[2018-02-04] MEDS: ASPIRIN 325 MG TAB PO SCH (08:51)
[2018-02-04] MEDS: PANTOPRAZOLE 40 MG TABLET PO SCH (08:51)
--- NOTE | 2018-02-04 09:52 | P.PN ---
Subjective Progress Note Date: 02/04/18 Principal diagnosis: Severe triple-vessel coronary artery disease status post four-vessel bypass grafting This is a 72-year-old female with multiple medical problems including hypertension hyperlipidemia extrinsic ALLERGIC alveolitis as well as coronary artery disease. The patient's going to the operating room today for a bypass grafting. She's been seen by my partner for the last couple of days. She did have a CT angiogram that was negative for pulmonary embolism. When she was seen yesterday, she was doing well and she was asymptomatic. No chest pain no shortness of breath and difficulty breathing. No coughing or wheezing. Labs were in order. This morning, prior to surgery the patient still doing well. No major issues or problems. 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 Progress note dated 02/01/2018 This is a 72-year-old female who is postop day #1 status post four-vessel bypass grafting. The patient's currently on the mechanical ventilator. Her current vent settings are the assist control mode rate of 24, tidal volume of 400 she is on a FiO2 50% with a PEEP of 5. Arterial blood gases show a PaO2 of 85 a PaCO2 40 and a pH of 7.35. The patient is currently on propofol at 20 mics per kilogram per minute, Primacor at 0.2 mics per kilogram per minute, insulin drip at 2 units per hour, and Cleviprex at 2 mg an hour. The patient's IV is lactated Ringer's at 50 mL an hour. According to cardiothoracic sourcing assistant , the patient can be weaned at this time. Chest x-ray show some mild fluid overload. The patient otherwise is stable. Even on a small amount of propofol , her mental status is reasonable. We'll wean that off and start the process. She has a history of non-ST segment elevation myocardial infarction, severe triple-vessel coronary artery disease, ischemic cardiomyopathy, systolic heart failure, hypertension, hyperlipidemia, extrinsic ALLERGIC alveolitis and COPD from previous heavy tobacco use. Progress note dated 02/02/2018 72-year-old female postop day #2, status post four-vessel bypass grafting. She was extubated yesterday on February 01. Currently, she is on a nonrebreather mask. In addition, she is on dopamine at 2 mcg/kg/m, a Lasix drip at 10 mg an hour, amiodarone at 0.5 mg/m and lactated Ringer's at 20 mL an hour. Chest x- ray shows just some mild fluid overload. The patient otherwise looks relatively weak. The patient seemed a little sleepy and lethargic. Does not really take in deep breaths. Chest x-ray though does not look horrible. 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 The patient's oxygen requirements have gone up since extubation, initially she was on 6 L by nasal cannula and is now on a nonrebreather. She may benefit from BiPAP therapy to help rest her. On 02/03/2018 patient is seen in follow-up in intensive care unit. She is awake , alert, seems a bit more upbeat and conversant compared to yesterday's exam. Currently down to 4 L per nasal cannula, and O2 sat is at 91%. Patient is afebrile, hemodynamically stable, patient went back into atrial fibrillation last night, and currently her heart rate is slightly tachycardic up to 109 BPM. Patient's IV amiodarone has been converted to oral amiodarone 200 mg by mouth twice a day. Maintenance IV fluids are LR at a rate of 10 ML per hour, and Lasix drip is currently at 15 mg per hour. Today's chest x-ray shows sourcing assistant interstitial pattern with bilateral infiltrates and small effusion, consistent with CHF or fluid overload. Today's lab work shows to be BCR 14.6, hemoglobin is 8.5, sodium is 138, potassium 5.0, carbon dioxide is 21, BUN is 40, and creatinine is 3.67. Patient's renal profile has worsened. Patient is compliant with her incentive spirometry, is able to achieve 500 today, we'll continue to encourage breathing and coughing and obvious use. Her pain is reasonably controlled. Midsternal incision is clean dry and intact, patient has a left pleural chest tube to low continuous wall suction at -27 m of water. Small amount of thin serosanguineous drainage with 100 mL output in the last 8 hours, and 190 mL output in the last 24 hours. Cordova catheter is in place, draining clear parth urine, urine output is marginal, averaging about 30 ML per hour. As a ELICEO drain in the right lower leg with thin serosanguineous drainage, bilateral legs are Ervin wrapped. On 02/04/2018 patient is seen in follow-up in the intensive care unit. She is sitting up in the recliner, tolerating activity well. She did ambulate yesterday. Incentive spirometry effort is 750 today, FiO2 is currently down to 3 L per nasal cannula. Hemodynamically stable, afebrile. Today's lab work shows a WBC of 12.6, hemoglobin 8.5, sodium is 136, potassium is 5.2, BUN is 50 , creatinine is 4.70. Further worsening of the renal function. Patient maintenance IVs LR at the rate of 10 ML per hour, Lasix drip at 20 mg per hour. Today's chest x-ray shows interval removal of left pleural chest tube, pulmonary venous hypertension and interstitial edema, volume overload. Patient is in sinus rhythm. Liver enzymes are trending down, patient's Crestor remains on hold Objective - Vital Signs Vital signs: Vital Signs Temp 98.1 F 02/04/18 04:00 Pulse 71 02/04/18 08:22 Resp 22 02/04/18 04:00 BP 115/57 02/03/18 09:00 Pulse Ox 96 02/04/18 07:00 Intake & Output 02/03/18 02/04/18 02/04/18 18:59 06:59 18:59 Intake Total 1163 340.25 191 Output Total 575 795 95 Balance 588 -454.75 96 Weight 85 kg Intake: IV 913 286 26 Amiodarone 450 mg In 500 Dextrose 5% in Water 250 ml @ 1 MG/MIN 33.33 mls/ hr IV .Q7H31M [facility] Rx#: [id number] Calcium Gluconate 100 Furosemide 250 mg In 105 Sodium Chloride 0.9% 225 ml @ 20 MG/HR 20 mls/hr IVP .[id number] [facility] Rx#: [id number] Lactated Ringers 1,000 ml 130 220 20 @ 20 mls/hr IV .Q24H [facility] Rx#:[id number] pressure bag 78 66 6 Intake, IV Titration 250 54.25 165 Amount Furosemide 250 mg In 250 54.25 165 Sodium Chloride 0.9% 225 ml @ 20 MG/HR 20 mls/hr IVP .[id number] [facility] Rx#: [id number] Output: Chest Tube Drainage 20 Left Pleural 20 Drainage 40 170 Right Calf 40 170 Urine 515 625 95 Other: Voiding Method Indwelling Catheter Indwelling Catheter # Voids 0 0 # Bowel Movements 0 0 ABP, PAP, CO, CI - Last Documented Arterial Blood Pressure 113/43 Pulmonary Artery Pressure 51/26 Cardiac Output 5.4 Cardiac Index 3.0 - Exam GENERAL EXAM: Alert, pleasant 72-year-old white female, comfortable in no apparent distress. Remains on 4 L per nasal cannula HEAD: Normocephalic/atraumatic. EYES: Normal reaction of pupils, equal size. Conjunctiva pink, sclera white. NOSE: Clear with pink turbinates. THROAT: No erythema or exudates. NECK: No masses, no JVD, no thyroid enlargement, no adenopathy. CHEST: No chest wall deformity. Symmetrical expansion. There is interval change left pleural chest tube removal. Midsternal incision is clean dry and intact and stable LUNGS: Lung sounds are positive for a few crackles at the bilateral posterior bases, worse over left posterior lower lobe CVS: Irregular rate and rhythm, normal S1 and S2, no gallops, no murmurs, no rubs ABDOMEN: Soft, nontender. No hepatosplenomegaly, normal bowel sounds, no guarding or rigidity. EXTREMITIES: No clubbing, no edema, no cyanosis, 2+ pulses and upper and lower extremities. Bilateral lower extremities are a strep, there is a right lower leg ELICEO drain with small amount of serosanguineous output MUSCULOSKELETAL: Muscle strength and tone normal. SPINE: No scoliosis or deformity SKIN: No rashes CENTRAL NERVOUS SYSTEM: Alert and oriented -3. No focal deficits, tone is normal in all 4 extremities. PSYCHIATRIC: Alert and oriented -3. Appropriate affect. Intact judgment and insight. - Labs CBC & Chem 7: 02/04/18 04:40 02/04/18 04:40 Labs: Abnormal Lab Results - Last 24 Hours (Table) 02/03/18 02/03/18 02/03/18 Range/Units 11:30 16:52 20:44 WBC (3.8-10.6) k/uL RBC (3.80-5.40) m/uL Hgb (11.4-16.0) gm/dL Hct (34.0-46.0) % RDW (11.5-15.5) % Plt Count (150-450) k/uL Neutrophils # (1.3-7.7) k/uL Lymphocytes # (1.0-4.8) k/uL Sodium (137-145) mmol/L Potassium (3.5-5.1) mmol/L Carbon Dioxide (22-30) mmol/L BUN (7-17) mg/dL Creatinine (0.52-1.04) mg/dL POC Glucose (mg/dL) 134 H 115 H 119 H (75-99) mg/dL Phosphorus (2.5-4.5) mg/dL Magnesium (1.6-2.3) mg/dL AST (14-36) U/L ALT (9-52) U/L Alkaline Phosphatase (38-126) U/L Total Protein (6.3-8.2) g/dL Albumin (3.5-5.0) g/dL 02/04/18 02/04/18 Range/Units 04:40 04:40 WBC 12.6 H (3.8-10.6) k/uL RBC 2.73 L (3.80-5.40) m/uL Hgb 8.5 L (11.4-16.0) gm/dL Hct 24.9 L (34.0-46.0) % RDW 17.0 H (11.5-15.5) % Plt Count 108 L (150-450) k/uL Neutrophils # 10.4 H (1.3-7.7) k/uL Lymphocytes # 0.8 L (1.0-4.8) k/uL Sodium 136 L (137-145) mmol/L Potassium 5.2 H (3.5-5.1) mmol/L Carbon Dioxide 21 L (22-30) mmol/L BUN 50 H (7-17) mg/dL Creatinine 4.70 H (0.52-1.04) mg/dL POC Glucose (mg/dL) (75-99) mg/dL Phosphorus 6.6 H (2.5-4.5) mg/dL Magnesium 2.6 H (1.6-2.3) mg/dL AST 303 H (14-36) U/L ALT 176 H (9-52) U/L Alkaline Phosphatase 180 H (38-126) U/L Total Protein 5.1 L (6.3-8.2) g/dL Albumin 3.1 L (3.5-5.0) g/dL Assessment and Plan Plan: Assessment: Severe triple-vessel coronary disease Postop day #4, status post four-vessel bypass grafting. Postoperative respiratory failure, with extubation on February 01. Acute non-ST segment elevation myocardial infarction Severe ischemic cardiomyopathy Systolic congestive heart failure Benign essential hypertension Hyperlipidemia Extrinsic ALLERGIC alveolitis Mild COPD Previous tobacco history Plan: Diagnosis CT surgery, continue encouraging incentive spirometry, pulmonary toileting, ambulation. Continue weaning FiO2. Pain control, monitor vital signs and labs, urine output. I performed a history & physical examination of the patient and discussed their management with my nurse practitioner, Jessica Whitfield. I reviewed the nurse practitioner's note and agree with the documented findings and plan of care. Lung sounds are positive for fine rales at posterior basilar spaces. The findings and the impression was discussed with the patient. I attest to the documentation by the nurse practitioner. Critical care time is over 30 minutes Time with Patient: Greater than 30
[2018-02-04] MEDS: METOPROLOL TARTRATE 12.5 MG TAB PO SCH ×2 (10:03→19:06)
--- NOTE | 2018-02-04 11:21 | ECHOF ---
Referral Reason:assess RV and LV function MEASUREMENTS -------- HEIGHT: 157.5 cm WEIGHT: 84.8 kg BP: 111/43 FINDINGS -------- Sinus rhythm. Limited Study TDS due to CABG and Bandages. Evaluate lv function. Overall left ventricular systolic function is moderate-severely impaired with, an EF between 30 - 35 %. There is paradoxical/dysynergic septal motion consistent with post-operative status. There is a trivial pericardial effusion present. CONCLUSIONS -------- 1. Sinus rhythm. 2. Limited Study 3. TDS due to CABG and Bandages. Evaluate lv function. 4. Overall left ventricular systolic function is moderate-severely impaired with, an EF between 30 - 35 %. 5. There is paradoxical/dysynergic septal motion consistent with post-operative status. 6. There is a trivial pericardial effusion present. OPERATIONS WELDER: Lu Silvestre RDCS
[2018-02-04 11:36] LABS: Glucose,Whole Blood 96 mg/dL (75-99)
[2018-02-04] MEDS: SYMBICORT 160-4.5 MCG INHALER INHALATION SCH ×2 (11:46→19:48)
[2018-02-04] MEDS ORDERED: FUROSEMIDE 250 MG in SODIUM CHLORIDE 0.9% 225 ML IVP SCH (12:15)
[2018-02-04] MEDS: CALCIUM ACETATE 667 MG CAP PO SCH ×2 (12:31→17:55)
[2018-02-04] MEDS ORDERED: METOLAZONE 5 MG TAB PO SCH (13:45)
--- NOTE | 2018-02-04 14:32 | P.PN ---
Subjective Progress Note Date: 02/04/18 Principal diagnosis: Acute coronary syndrome This is a pleasant 73-year-old female patient with a past medical history significant for hypertension and dyslipidemia with no documented history of coronary artery disease or congestive heart failure presented to the hospital complaining of shortness of breath for the last 3 weeks. The patient stated that the shortness of breath was started about 3 weeks ago. Beside that she describes epigastric discomfort. She stated she developed bilateral lower extremities edema and she was seen by her primary care physician who put her on Lasix with improvement in the edema. The patient did not have any symptoms of chest pain or discomfort, dizziness or lightheadedness, or any syncope. She does have epigastric discomfort mainly. The EKG showed sinus rhythm with nonspecific changes in the inferior leads. There was also some ST and T wave abnormalities seems to be diffuse. Beside that the d-dimer came in to be abnormal and the patient is in process to have a CTA of the chest to rule out any PE. The BNP came in to be also severely abnormal and the patient was given Lasix IV in the emergency room. The first set of troponin also came in to be slightly abnormal. The patient underwent an emergent heart catheterization and that revealed severe triple-vessel coronary artery disease. She was seen and evaluated by cardiothoracic surgeon and the plan is to proceed with CABG this coming Wednesday. The patient underwent CABG 4 yesterday we'll DURON to LAD, SVG to diagonal, SVG to OM, and SVG to PDA. This is postoperative day #4. The patient continues to be with dynamic the stable. The chest x-ray continues to show findings consistent with volume overload. Reviewing the blood work indicates inclining in the creatinine is worse. For that reason the Lasix drip was decreased to 10 mg per hour. She was converted to normal sinus mechanism after she went into A. fib with RVR. She continues to be on amiodarone by mouth. Beside that she is on metoprolol. She is on dual antiplatelet therapy with aspirin and Plavix. She is not on statin because of elevated liver function test. Objective - Vital Signs Vital signs: Vital Signs Temp 98 F 02/04/18 08:00 Pulse 66 02/04/18 12:07 Resp 22 02/04/18 04:00 BP 115/57 02/03/18 09:00 Pulse Ox 96 02/04/18 10:00 Intake & Output 02/03/18 02/04/18 02/04/18 18:59 06:59 18:59 Intake Total 1163 340.25 499 Output Total 575 795 350 Balance 588 -454.75 149 Weight 85 kg Intake: IV 913 286 134 Amiodarone 450 mg In 500 Dextrose 5% in Water 250 ml @ 1 MG/MIN 33.33 mls/ hr IV .Q7H31M [facility] Rx#: [id number] Calcium Gluconate 100 Furosemide 250 mg In 105 60 Sodium Chloride 0.9% 225 ml @ 20 MG/HR 20 mls/hr IVP .[id number] [facility] Rx#: [id number] Lactated Ringers 1,000 ml 130 220 50 @ 10 mls/hr IV .Q24H [facility] Rx#:[id number] pressure bag 78 66 24 Intake, IV Titration 250 54.25 165 Amount Furosemide 250 mg In 250 54.25 165 Sodium Chloride 0.9% 225 ml @ 20 MG/HR 20 mls/hr IVP .[id number] [facility] Rx#: [id number] Oral 200 Output: Chest Tube Drainage 20 Left Pleural 20 Drainage 40 170 Right Calf 40 170 Urine 515 625 350 Other: Voiding Method Indwelling Catheter Indwelling Catheter Indwelling Catheter # Voids 0 0 # Bowel Movements 0 0 ABP, PAP, CO, CI - Last Documented Arterial Blood Pressure 130/52 Pulmonary Artery Pressure 51/26 Cardiac Output 5.4 Cardiac Index 3.0 - Constitutional General appearance: Present: no acute distress - Respiratory Respiratory: bilateral: diminished - Cardiovascular Rhythm: regular Heart sounds: normal: S1, S2 - Labs CBC & Chem 7: 02/04/18 04:40 02/04/18 04:40 Labs: Abnormal Lab Results - Last 24 Hours (Table) 02/03/18 02/03/18 02/04/18 Range/Units 16:52 20:44 04:40 WBC 12.6 H (3.8-10.6) k/uL RBC 2.73 L (3.80-5.40) m/uL Hgb 8.5 L (11.4-16.0) gm/dL Hct 24.9 L (34.0-46.0) % RDW 17.0 H (11.5-15.5) % Plt Count 108 L (150-450) k/uL Neutrophils # 10.4 H (1.3-7.7) k/uL Lymphocytes # 0.8 L (1.0-4.8) k/uL Sodium (137-145) mmol/L Potassium (3.5-5.1) mmol/L Carbon Dioxide (22-30) mmol/L BUN (7-17) mg/dL Creatinine (0.52-1.04) mg/dL POC Glucose (mg/dL) 115 H 119 H (75-99) mg/dL Phosphorus (2.5-4.5) mg/dL Magnesium (1.6-2.3) mg/dL AST (14-36) U/L ALT (9-52) U/L Alkaline Phosphatase (38-126) U/L Total Protein (6.3-8.2) g/dL Albumin (3.5-5.0) g/dL 02/04/18 Range/Units 04:40 WBC (3.8-10.6) k/uL RBC (3.80-5.40) m/uL Hgb (11.4-16.0) gm/dL Hct (34.0-46.0) % RDW (11.5-15.5) % Plt Count (150-450) k/uL Neutrophils # (1.3-7.7) k/uL Lymphocytes # (1.0-4.8) k/uL Sodium 136 L (137-145) mmol/L Potassium 5.2 H (3.5-5.1) mmol/L Carbon Dioxide 21 L (22-30) mmol/L BUN 50 H (7-17) mg/dL Creatinine 4.70 H (0.52-1.04) mg/dL POC Glucose (mg/dL) (75-99) mg/dL Phosphorus 6.6 H (2.5-4.5) mg/dL Magnesium 2.6 H (1.6-2.3) mg/dL AST 303 H (14-36) U/L ALT 176 H (9-52) U/L Alkaline Phosphatase 180 H (38-126) U/L Total Protein 5.1 L (6.3-8.2) g/dL Albumin 3.1 L (3.5-5.0) g/dL Assessment and Plan Assessment: assessment #1 severe triple-vessel and status post CABG #2 severe ischemic cardiomyopathy. #3 congestive heart failure exacerbation secondary to systolic dysfunction #4 hypertension #5 dyslipidemia #6 acute on chronic renal failure Plan #1 The Lasix drip was decreased to 10 mg per hour #2 continue dual antiplatelet therapy along with metoprolol and amiodarone #3 continue amiodarone by mouth. Continue monitor the liver function tests. #4 continue holding statin until the liver function tests come back to normal Thank you for allowing us participate in her care and we'll continue following up with the patient
--- NOTE | 2018-02-04 15:28 | PN ---
PROGRESS NOTE The patient is seen for followup for acute kidney injury post coronary artery bypass surgery. The patient was hypotensive and had developed atrial fibrillation with RVR when her urine output dropped. Serum creatinine jumped from 1-2 mg/dL, subsequently up to 4.7 today. The patient was initially anuric and severely oliguric with a urine output of only about 5 mL/hour. Her hemoglobin had dropped to 7 g/dL. Patient was transfused packed RBCs and started on dopamine for a short period of time. Her urine output had picked up and currently she is staying at about 90-70 mL an hour. The patient is maintained on Lasix drip at 20 mg/hour. Her respiratory status is improved as she had been in fluid overload 2 days ago. This morning, creatinine is 4.7. Patient states she feels much better. She has been walking in the hallway. She has been tolerating oral intake as well. The patient is not on any IV amiodarone which and this has been switched to p.o. EXAMINATION: Blood pressure is 126/50, heart rate 65 per minute. Patient is afebrile. Examination of the heart S1, S2. Examination of the lungs decreased breath sounds at bases. Abdomen is soft, nontender. Exam of lower extremity shows drain in the right lower extremity, which is the site of the vein harvest. Edema is noted bilaterally 1+. LAB: Show sodium 136, potassium 5.2, chloride 101, BUN 50, serum creatinine 4.7, phosphorus was 6.6, magnesium 2.6. ASSESSMENT: 1. Acute kidney injury, acute tubular necrosis, which is mainly ischemic, initially oliguric, currently nonoliguric. I will decrease the Lasix drip to 10 mg an hour and hopefully discontinue it tonight and switch to IV push Lasix tomorrow. Continue to avoid hypotension. There are no nephrotoxic agents on board. 2. Hyperphosphatemia associated with renal failure. Start PhosLo 1 tablet b.i.d. with 2 main meals. 3. Status post quadruple coronary artery bypass surgery and doing fairly okay. 4. Atrial fibrillation with RVR, currently on very low dose of Lopressor and maintained on oral amiodarone. PLAN: Decrease Lasix drip to 10 mg an hour and hopefully switch to IV push Lasix tomorrow. Continue to avoid nephrotoxic agents and hypotension. Repeat labs in a.m. Maintain patient on a low-potassium diet. MMCHANNINGL / PRINCEN: [id number] /
[2018-02-04] MEDS: LACTATED RINGERS 1,000 ML IV SCH (15:37)
[2018-02-04 17:53] LABS: Glucose,Whole Blood 98 mg/dL (75-99)
[2018-02-04 18:41] LABS: Magnesium 2.6 mg/dL (1.6-2.3); Potassium 5.1 mmol/L (3.5-5.1)
[2018-02-04 20:41] LABS: Glucose,Whole Blood 125 mg/dL (75-99)
[2018-02-04] MEDS: MAGNESIUM HYDROXIDE 2,400 MG/10 ML CUP PO PRN (20:42)
[2018-02-04] MEDS: SENNOSIDES-DOCUSATE SODIUM 1 EACH TAB PO SCH (20:53)
[2018-02-05] MEDS: HEPARIN SODIUM,PORCINE 5,000 UNIT/ML 1 ML VIAL SQ SCH ×4 (00:59→23:58)
[2018-02-05 01:03] LABS: Glucose,Whole Blood 95 mg/dL (75-99)
[2018-02-05] MEDS: INSULIN ASPART 100 UNIT/ML 1 ML 10 ML VIAL SQ SCH ×5 (02:30→21:08)
[2018-02-05 05:19] LABS: Anisocytosis Slight; Basophils % (A) 0 %; Eosinophils # (A) 0.6 k/uL (0-0.7); Eosinophils % (A) 5 %; HCT 26.1 % (34.0-46.0); HGB 8.7 gm/dL (11.4-16.0); Lymphocytes # (A) 0.9 k/uL (1.0-4.8); Lymphocytes % (A) 8 %; MCH 30.7 pg (25.0-35.0); MCHC 33.4 g/dL (31.0-37.0); MCV 92.1 fL (80.0-100.0); Mean Platelet Volume 8.7; Monocytes # (A) 0.7 k/uL (0-1.0); Monocytes % (A) 6 %; Neutrophils % (A) 79 %; Platelet Count 128 k/uL (150-450); RBC 2.83 m/uL (3.80-5.40); RDW 17.5 % (11.5-15.5); WBC 11.4 k/uL (3.8-10.6)
[2018-02-05 05:41] LABS: Albumin 3.1 g/dL (3.5-5.0); Calcium 8.9 mg/dL (8.4-10.2); Magnesium 2.8 mg/dL (1.6-2.3); Phosphorus 7.4 mg/dL (2.5-4.5); Potassium 4.8 mmol/L (3.5-5.1); Total Bilirubin 0.5 mg/dL (0.2-1.3); Total Protein 5.3 g/dL (6.3-8.2)
--- NOTE | 2018-02-05 06:48 | XR ---
EXAMINATION TYPE: XR chest 1V portable DATE OF EXAM: 02/05/2018 HISTORY: post op CABG. REFERENCE: Previous study dated 02/04/2018. FINDINGS: There has been a midline sternotomy and before meals bypass. There is a right internal jugu lar sheath in place, unchanged from previous. There is a wire projecting over the left axilla. This m ay be in the axillary vein. The heart is enlarged. There is left basilar airspace disease. There are small, bilateral effusions. There is a linear opacity projecting over what appears to be in the innominate vein. I'm uncertain as to the etiology of this. It was not present previously. IMPRESSION: 1. CONTINUING POSTOPERATIVE CHANGE. 2. QUESTIONABLE GUIDEWIRE IN THE LEFT AXILLARY VEIN. 3. UNUSUAL OPACITY PROJECTING OVER THE INNOMINATE VEIN OF UNCERTAIN ETIOLOGY.
[2018-02-05 07:45] LABS: Glucose,Whole Blood 101 mg/dL (75-99)
[2018-02-05] MEDS: CLOPIDOGREL 75 MG TAB PO SCH (08:03)
[2018-02-05] MEDS: AMIODARONE 200 MG TAB PO SCH ×2 (08:03→20:55)
[2018-02-05] MEDS: METOPROLOL TARTRATE 12.5 MG TAB PO SCH ×2 (08:03→20:56)
[2018-02-05] MEDS: ASPIRIN 325 MG TAB PO SCH (08:03)
[2018-02-05] MEDS: PANTOPRAZOLE 40 MG TABLET PO SCH (08:03)
[2018-02-05] MEDS: IPRATROPIUM-ALBUTEROL 3 ML NEB INHALATION SCH ×4 (08:37→20:15)
[2018-02-05] MEDS: SYMBICORT 160-4.5 MCG INHALER INHALATION SCH ×2 (08:38→20:15)
[2018-02-05] MEDS ORDERED: FUROSEMIDE 10 MG/ML 10 ML VIAL IV SCH (09:00)
--- NOTE | 2018-02-05 09:08 | P.PN ---
Subjective Progress Note Date: 02/05/18 Principal diagnosis: This is a 72-year-old female who was seen in consultation and followed up for acute kidney injury secondary to prerenal from acute [place], post CABG and atrial fibrillation, with cardiomyopathy and ejection fraction of 25-30% prior to bypass surgery. congestive heart failure. She was started on IV Lasix drip and has responded very well. This morning her Lasix drip was discontinued and she was switched over to IV Lasix 60 every 12. Currently she is on 3 L of nasal cannula comfortable sitting out in a chair. She is not on any inotropes. Denies any fever chills nausea vomiting diarrhea. She has not had any bowel movements yet. . Objective - Vital Signs Vital signs: Vital Signs Temp 98.0 F 02/05/18 05:00 Pulse 69 02/05/18 08:47 Resp 16 02/05/18 05:00 BP 115/57 02/03/18 09:00 Pulse Ox 93 L 02/05/18 06:00 Intake & Output 02/04/18 02/05/18 02/05/18 18:59 06:59 18:59 Intake Total 1107 1273 Output Total 1040 2435 Balance 67 -1162 Weight 84 kg Intake: IV 342 199 Furosemide 250 mg In 140 40 Sodium Chloride 0.9% 225 ml @ 10 MG/HR 10 mls/hr IVP .Q24H [facility] Rx#: [id number] Lactated Ringers 1,000 ml 130 120 @ 10 mls/hr IV .Q24H [facility] Rx#:[id number] pressure bag 72 39 Intake, IV Titration 165 Amount Furosemide 250 mg In 165 Sodium Chloride 0.9% 225 ml @ 10 MG/HR 10 mls/hr IVP .Q24H [facility] Rx#: [id number] Oral 600 1074 Output: Drainage 30 260 Right Calf 30 260 Urine 1010 2175 Other: Voiding Method Indwelling Catheter Indwelling Catheter # Voids 0 # Bowel Movements 0 ABP, PAP, CO, CI - Last Documented Arterial Blood Pressure 120/49 Pulmonary Artery Pressure 51/26 Cardiac Output 5.4 Cardiac Index 3.0 On examination she is on 3 L nasal cannula comfortable. HEENT exam no JVP neck is supple no facial asymmetry Lungs are clear to auscultation good air entry bilaterally Heart sounds are unremarkable for any murmur rub gallop on the monitor she is showing normal sinus rhythm Abdomen is soft nontender nondistended Extremity exam was mild edema Logically awake alert oriented. - Labs CBC & Chem 7: 02/05/18 05:10 02/05/18 05:10 Labs: Abnormal Lab Results - Last 24 Hours (Table) 02/04/18 02/04/18 02/05/18 Range/Units 17:52 20:39 05:10 WBC 11.4 H (3.8-10.6) k/uL RBC 2.83 L (3.80-5.40) m/uL Hgb 8.7 L (11.4-16.0) gm/dL Hct 26.1 L (34.0-46.0) % RDW 17.5 H (11.5-15.5) % Plt Count 128 L (150-450) k/uL Neutrophils # 9.0 H (1.3-7.7) k/uL Lymphocytes # 0.9 L (1.0-4.8) k/uL BUN (7-17) mg/dL Creatinine (0.52-1.04) mg/dL POC Glucose (mg/dL) 125 H (75-99) mg/dL Phosphorus 7.0 H (2.5-4.5) mg/dL Magnesium 2.6 H (1.6-2.3) mg/dL AST (14-36) U/L ALT (9-52) U/L Alkaline Phosphatase (38-126) U/L Total Protein (6.3-8.2) g/dL Albumin (3.5-5.0) g/dL 02/05/18 02/05/18 Range/Units 05:10 07:43 WBC (3.8-10.6) k/uL RBC (3.80-5.40) m/uL Hgb (11.4-16.0) gm/dL Hct (34.0-46.0) % RDW (11.5-15.5) % Plt Count (150-450) k/uL Neutrophils # (1.3-7.7) k/uL Lymphocytes # (1.0-4.8) k/uL BUN 60 H (7-17) mg/dL Creatinine 5.60 H* (0.52-1.04) mg/dL POC Glucose (mg/dL) 101 H (75-99) mg/dL Phosphorus 7.4 H (2.5-4.5) mg/dL Magnesium 2.8 H (1.6-2.3) mg/dL AST 196 H (14-36) U/L ALT 135 H (9-52) U/L Alkaline Phosphatase 161 H (38-126) U/L Total Protein 5.3 L (6.3-8.2) g/dL Albumin 3.1 L (3.5-5.0) g/dL Assessment and Plan Assessment: Impression. 1. Acute kidney injury from prerenal from congestive heart failure acute FL and myopathy atrial fibrillation and post CABG. Was on IV Lasix until earlier this morning 02/05/2018 and has been discontinued and switched over to IV Lasix 60 every 12. Creatinine is up from 4.7-5.6. Baseline creatinine is 1. Expect creatinine to improve in the next few days after plateauing. He is in nonoliguric phase. Urine output is about 100 mL an hour for the last few hours 2. Transient atrial fibrillation currently on normal sinus rhythm. On MR drawn. 3. Status post CABG, dated 02/03/2018 4. Ischemic cardiomyopathy ejection fraction 25-30%. On 02/04/2018 ejection fraction is reported as 30-35% 5. Anemia with hemoglobin of 8.7. Recommendation. Given normal lung exam and chest x-ray fairly normal I will reduce the Lasix to 40 mg every 12. Avoid hypotensive episodes if blood. Less than 110 systolic hold Lasix and call me. Watch hemoglobin.
--- NOTE | 2018-02-05 10:14 | P.PN ---
Subjective Progress Note Date: 02/05/18 Principal diagnosis: Symptomatic multivessel coronary artery disease, with left main disease, non-ST elevated myocardial infarction this admission, congestive heart failure exacerbation secondary to systolic dysfunction, severe ischemic cardiomyopathy with a preoperative ejection fraction of 25-30%, history of gout, history of syncope 2 years ago, obesity, remote history of nicotine dependence quit 30 years ago, hypertension, hyperlipidemia, and recent pneumonia. POD #5 urgent coronary artery bypass grafting 4 using the left internal mammary artery to the mid left anterior descending artery, a reverse greater saphenous vein graft from the aorta to the diagonal artery, a reverse greater saphenous vein graft from the aorta to the first obtuse marginal artery, a reverse greater saphenous vein graft from the aorta to the posterior descending artery. Endoscopic harvesting of the right greater saphenous vein. Intraoperative transesophageal echocardiogram and epi-aortic scanning. Intraoperative graft flow measurements using the [employer] system. Postoperative acute elevation of AST and ALT, an unexpected but potential outcome of surgery. Postoperative paroxysmal atrial fibrillation, an expected outcome of surgery. Acute kidney injury, acute tubular necrosis secondary to hemodynamic changes and hypotension. Patient is currently sitting up to bedside chair. She is in no acute distress. Her daughter is at her bedside. Patient reports she has not had a bowel movement since surgery and is complaining of some constipation. She denies any complaints of pain at this time. She reports that she walked in the hallway of the ICU 3 times yesterday with minimal assistance. Objective - Vital Signs Vital signs: Vital Signs Temp 98.8 F 02/05/18 08:00 Pulse 70 02/05/18 09:00 Resp 16 02/05/18 09:00 BP 115/57 02/03/18 09:00 Pulse Ox 96 02/05/18 09:00 Intake & Output 02/04/18 02/05/18 02/05/18 18:59 06:59 18:59 Intake Total 1107 1273 239 Output Total 1040 2435 325 Balance 67 -1162 -86 Weight 84 kg Intake: IV 342 199 39 Furosemide 250 mg In 140 40 Sodium Chloride 0.9% 225 ml @ 10 MG/HR 10 mls/hr IVP .Q24H [facility] Rx#: [id number] Lactated Ringers 1,000 ml 130 120 30 @ 10 mls/hr IV .Q24H [facility] Rx#:[id number] pressure bag 72 39 9 Intake, IV Titration 165 Amount Furosemide 250 mg In 165 Sodium Chloride 0.9% 225 ml @ 10 MG/HR 10 mls/hr IVP .Q24H [facility] Rx#: [id number] Oral 600 1074 200 Output: Drainage 30 260 Right Calf 30 260 Urine 1010 2175 325 Other: Voiding Method Indwelling Catheter Indwelling Catheter Indwelling Catheter # Voids 0 # Bowel Movements 0 ABP, PAP, CO, CI - Last Documented Arterial Blood Pressure 121/44 Pulmonary Artery Pressure 51/26 Cardiac Output 5.4 Cardiac Index 3.0 - Constitutional General appearance: Present: cooperative, no acute distress, obese - EENT ENT: Present: hearing grossly normal - Neck Details: No JVD, neck is supple, no lymphadenopathy. Right IJ Cordis in place and to continuous CVP monitoring, current CVP pressure is 8 mmHg. - Respiratory Details: Lung sounds essentially clear to her bilateral upper lobes, few scattered crackles to bilateral bases. Respirations are symmetrical and nonlabored. Oxygen saturation are 97% on 3 L nasal cannula. She is achieving 750 mL on her incentive spirometry. - Cardiovascular Details: Regular rhythm and rate. S1 and S2 present, negative for S3, gallop or murmur. Sternum is stable. Bedside telemetry showing normal sinus rhythm heart rate 68. Heart hugger and surgical support bra in place. She is demonstrating appropriate use of her heart hugger. Knee-high RODO hose and sequential compression devices in place to her bilateral lower extremities. Atrial and ventricular epicardial pacemaker wires in place and grounded. - Gastrointestinal Gastrointestinal Comment(s): Abdomen is soft, nontender nondistended. Hypoactive bowel sounds present in all 4 abdominal quadrants. Tolerating oral intake. Passing flatus. - Genitourinary Genitourinary Comment(s): Cordova catheter for accurate I&O. Draining clear yellow urine. Copious urine output, 1425 mL output in the last 8 hours. - Integumentary Integumentary Comment(s): Skin is warm and dry. No clubbing or cyanosis present. Midline sternal incision clean dry and well approximated. No drainage or redness present. Dressing clean and dry. Right leg EVH site clean dry and approximated. No drainage or redness present. ELICEO drain in place to her right lower extremity draining thin serosanguineous drainage. Drained 180 mL output in the last 8 hours. - Neurologic Neurologic: Present: CNII-XII intact - Musculoskeletal Musculoskeletal: Present: gait normal, strength equal bilaterally - Psychiatric Psychiatric: Present: A&O x's 3, appropriate affect, intact judgment & insight - Allied health notes Allied health notes reviewed: nursing - Labs CBC & Chem 7: 02/05/18 05:10 02/05/18 05:10 Labs: Abnormal Lab Results - Last 24 Hours (Table) 02/04/18 02/04/18 02/05/18 Range/Units 17:52 20:39 05:10 WBC 11.4 H (3.8-10.6) k/uL RBC 2.83 L (3.80-5.40) m/uL Hgb 8.7 L (11.4-16.0) gm/dL Hct 26.1 L (34.0-46.0) % RDW 17.5 H (11.5-15.5) % Plt Count 128 L (150-450) k/uL Neutrophils # 9.0 H (1.3-7.7) k/uL Lymphocytes # 0.9 L (1.0-4.8) k/uL BUN (7-17) mg/dL Creatinine (0.52-1.04) mg/dL POC Glucose (mg/dL) 125 H (75-99) mg/dL Phosphorus 7.0 H (2.5-4.5) mg/dL Magnesium 2.6 H (1.6-2.3) mg/dL AST (14-36) U/L ALT (9-52) U/L Alkaline Phosphatase (38-126) U/L Total Protein (6.3-8.2) g/dL Albumin (3.5-5.0) g/dL 02/05/18 02/05/18 Range/Units 05:10 07:43 WBC (3.8-10.6) k/uL RBC (3.80-5.40) m/uL Hgb (11.4-16.0) gm/dL Hct (34.0-46.0) % RDW (11.5-15.5) % Plt Count (150-450) k/uL Neutrophils # (1.3-7.7) k/uL Lymphocytes # (1.0-4.8) k/uL BUN 60 H (7-17) mg/dL Creatinine 5.60 H* (0.52-1.04) mg/dL POC Glucose (mg/dL) 101 H (75-99) mg/dL Phosphorus 7.4 H (2.5-4.5) mg/dL Magnesium 2.8 H (1.6-2.3) mg/dL AST 196 H (14-36) U/L ALT 135 H (9-52) U/L Alkaline Phosphatase 161 H (38-126) U/L Total Protein 5.3 L (6.3-8.2) g/dL Albumin 3.1 L (3.5-5.0) g/dL - Imaging and Cardiology Chest x-ray: report reviewed, image reviewed Assessment and Plan (1) Coronary artery disease Current Visit: Yes Status: Chronic Code(s): I25.10 - ATHSCL HEART DISEASE OF [place] CORONARY ARTERY W/O ANG PCTRS SNOMED Code(s): 23459099 (2) Hypertension Current Visit: Yes Status: Chronic Code(s): I10 - ESSENTIAL (PRIMARY) HYPERTENSION SNOMED Code(s): 66276079 (3) Hyperlipidemia Current Visit: Yes Status: Chronic Code(s): E78.5 - HYPERLIPIDEMIA, UNSPECIFIED SNOMED Code(s): 48915193 (4) Acute exacerbation of congestive heart failure Current Visit: Yes Status: Acute Code(s): I50.9 - HEART FAILURE, UNSPECIFIED SNOMED Code(s): 11056648 (5) Ischemic cardiomyopathy Current Visit: Yes Status: Chronic Code(s): I25.5 - ISCHEMIC CARDIOMYOPATHY SNOMED Code(s): 597385454 (6) Elevated d-dimer Current Visit: Yes Status: Acute Code(s): R79.89 - OTHER SPECIFIED ABNORMAL FINDINGS OF BLOOD CHEMISTRY SNOMED Code(s): 855625527 (7) NSTEMI (non-ST elevated myocardial infarction) Current Visit: Yes Status: Acute Code(s): I21.4 - NON-ST ELEVATION (NSTEMI) MYOCARDIAL INFARCTION SNOMED Code(s): 006573632 Plan: 1. Continue aspirin, Plavix, subcu heparin, beta saw. Will increase her beta saw as tolerated. 2. Continue Lasix 40 mg IV every 12 hours, managed by nephrology. Avoid nephro toxic medications. 3. Wean oxygen as tolerated. Encourage incentive spirometry use 10 times every hour 4. Continue oral amiodarone 400 mg by mouth twice a day for A. fib prophylaxis. 5. Continue to hold Crestor due to her elevated liver enzymes. Once her liver enzymes have normalized we will restart statin. 6. Will monitor daily labs and chest x-rays. 7. GI/DVT prophylaxis. 8. Increase activity, out of bed to chair, ambulate as tolerated. PT/OT/ cardiac rehab following. 9. Insulin drip/diabetic management per primary care physician. 10. Pulmonary recommendations per Dr. Amador. 11. Discontinue her right IJ Cordis today. 12. Discontinue Zaroxolyn. 13. Consult Dr. Carter for possible inpatient rehab placement after discharge. 14. More recommendations to follow based on her clinical course. Time with Patient: Greater than 30
[2018-02-05] MEDS: FUROSEMIDE 10 MG/ML 4 ML VIAL IV SCH ×2 (10:46→20:56)
--- NOTE | 2018-02-05 10:56 | P.PN ---
Subjective Progress Note Date: 02/05/18 Principal diagnosis: Severe triple-vessel coronary artery disease status post coronary artery bypass grafting 4. This is a 72-year-old female with multiple medical problems including hypertension hyperlipidemia extrinsic ALLERGIC alveolitis as well as coronary artery disease. The patient's going to the operating room today for a bypass grafting. She's been seen by my partner for the last couple of days. She did have a CT angiogram that was negative for pulmonary embolism. When she was seen yesterday, she was doing well and she was asymptomatic. No chest pain no shortness of breath and difficulty breathing. No coughing or wheezing. Labs were in order. This morning, prior to surgery the patient still doing well. No major issues or problems. 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 Progress note dated 02/01/2018 This is a 72-year-old female who is postop day #1 status post four-vessel bypass grafting. The patient's currently on the mechanical ventilator. Her current vent settings are the assist control mode rate of 24, tidal volume of 400 she is on a FiO2 50% with a PEEP of 5. Arterial blood gases show a PaO2 of 85 a PaCO2 40 and a pH of 7.35. The patient is currently on propofol at 20 mics per kilogram per minute, Primacor at 0.2 mics per kilogram per minute, insulin drip at 2 units per hour, and Cleviprex at 2 mg an hour. The patient's IV is lactated Ringer's at 50 mL an hour. According to cardiothoracic assistant men's lacrosse coach , the patient can be weaned at this time. Chest x-ray show some mild fluid overload. The patient otherwise is stable. Even on a small amount of propofol , her mental status is reasonable. We'll wean that off and start the process. She has a history of non-ST segment elevation myocardial infarction, severe triple-vessel coronary artery disease, ischemic cardiomyopathy, systolic heart failure, hypertension, hyperlipidemia, extrinsic ALLERGIC alveolitis and COPD from previous heavy tobacco use. Progress note dated 02/02/2018 72-year-old female postop day #2, status post four-vessel bypass grafting. She was extubated yesterday on February 01. Currently, she is on a nonrebreather mask. In addition, she is on dopamine at 2 mcg/kg/m, a Lasix drip at 10 mg an hour, amiodarone at 0.5 mg/m and lactated Ringer's at 20 mL an hour. Chest x- ray shows just some mild fluid overload. The patient otherwise looks relatively weak. The patient seemed a little sleepy and lethargic. Does not really take in deep breaths. Chest x-ray though does not look horrible. 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 The patient's oxygen requirements have gone up since extubation, initially she was on 6 L by nasal cannula and is now on a nonrebreather. She may benefit from BiPAP therapy to help rest her. On 02/03/2018 patient is seen in follow-up in intensive care unit. She is awake , alert, seems a bit more upbeat and conversant compared to yesterday's exam. Currently down to 4 L per nasal cannula, and O2 sat is at 91%. Patient is afebrile, hemodynamically stable, patient went back into atrial fibrillation last night, and currently her heart rate is slightly tachycardic up to 109 BPM. Patient's IV amiodarone has been converted to oral amiodarone 200 mg by mouth twice a day. Maintenance IV fluids are LR at a rate of 10 ML per hour, and Lasix drip is currently at 15 mg per hour. Today's chest x-ray shows assistant men's lacrosse coach interstitial pattern with bilateral infiltrates and small effusion, consistent with CHF or fluid overload. Today's lab work shows to be BCR 14.6, hemoglobin is 8.5, sodium is 138, potassium 5.0, carbon dioxide is 21, BUN is 40, and creatinine is 3.67. Patient's renal profile has worsened. Patient is compliant with her incentive spirometry, is able to achieve 500 today, we'll continue to encourage breathing and coughing and obvious use. Her pain is reasonably controlled. Midsternal incision is clean dry and intact, patient has a left pleural chest tube to low continuous wall suction at -27 m of water. Small amount of thin serosanguineous drainage with 100 mL output in the last 8 hours, and 190 mL output in the last 24 hours. Cordova catheter is in place, draining clear parth urine, urine output is marginal, averaging about 30 ML per hour. As a ELICEO drain in the right lower leg with thin serosanguineous drainage, bilateral legs are Ervin wrapped. On 02/04/2018 patient is seen in follow-up in the intensive care unit. She is sitting up in the recliner, tolerating activity well. She did ambulate yesterday. Incentive spirometry effort is 750 today, FiO2 is currently down to 3 L per nasal cannula. Hemodynamically stable, afebrile. Today's lab work shows a WBC of 12.6, hemoglobin 8.5, sodium is 136, potassium is 5.2, BUN is 50 , creatinine is 4.70. Further worsening of the renal function. Patient maintenance IVs LR at the rate of 10 ML per hour, Lasix drip at 20 mg per hour. Today's chest x-ray shows interval removal of left pleural chest tube, pulmonary venous hypertension and interstitial edema, volume overload. Patient is in sinus rhythm. Liver enzymes are trending down, patient's Crestor remains on hold The patient is seen again today 02/05/2018 in follow-up in the intensive care unit. She is currently sitting up in a chair at the bedside. She is awake and alert in no acute distress. She is feeling better today as compared to yesterday. She denies any worsening shortness of breath, cough or congestion. She is maintaining good O2 saturations in the 90s on 3 L/m high flow per nasal cannula. She is working well with the incentive spirometer currently pulling approximately 750 MLS. She's been afebrile. Hemodynamically stable. Chest x- ray reveals evidence of postop changes with left basilar airspace disease and small bilateral pleural effusions. White count 11.4. Hemoglobin 8.7. Platelet count 128,000. BUN is 60 creatinine 5.60 and she remains on Lasix 40 mg IV push every 12 hours. AST 196, ALT 135, alk phos 161. Objective - Vital Signs Vital signs: Vital Signs Temp 98.8 F 02/05/18 08:00 Pulse 70 02/05/18 09:00 Resp 16 02/05/18 09:00 BP 115/57 02/03/18 09:00 Pulse Ox 96 04/14/18 09:00 Intake & Output 02/04/18 02/05/18 02/05/18 18:59 06:59 18:59 Intake Total 1107 1273 239 Output Total 1040 2435 325 Balance 67 -1162 -86 Weight 84 kg Intake: IV 342 199 39 Furosemide 250 mg In 140 40 Sodium Chloride 0.9% 225 ml @ 10 MG/HR 10 mls/hr IVP .Q24H ERIN Rx#: [id number] Lactated Ringers 1,000 ml 130 120 30 @ 10 mls/hr IV .Q24H ERIN Rx#:[id number] pressure bag 72 39 9 Intake, IV Titration 165 Amount Furosemide 250 mg In 165 Sodium Chloride 0.9% 225 ml @ 10 MG/HR 10 mls/hr IVP .Q24H ERIN Rx#: [id number] Oral 600 1074 200 Output: Drainage 30 260 Right Calf 30 260 Urine 1010 2175 325 Other: Voiding Method Indwelling Catheter Indwelling Catheter Indwelling Catheter # Voids 0 # Bowel Movements 0 ABP, PAP, CO, CI - Last Documented Arterial Blood Pressure 121/44 Pulmonary Artery Pressure 51/26 Cardiac Output 5.4 Cardiac Index 3.0 - Exam GENERAL EXAM: Alert, pleasant 72-year-old white female, comfortable in no apparent distress. Remains on 4 L per nasal cannula HEAD: Normocephalic/atraumatic. EYES: Normal reaction of pupils, equal size. Conjunctiva pink, sclera white. NOSE: Clear with pink turbinates. THROAT: No erythema or exudates. NECK: No masses, no JVD, no thyroid enlargement, no adenopathy. CHEST: No chest wall deformity. Symmetrical expansion. There is interval change left pleural chest tube removal. Midsternal incision is clean dry and intact and stable LUNGS: Lung sounds are positive for a few crackles at the bilateral posterior bases, worse over left posterior lower lobe CVS: Irregular rate and rhythm, normal S1 and S2, no gallops, no murmurs, no rubs ABDOMEN: Soft, nontender. No hepatosplenomegaly, normal bowel sounds, no guarding or rigidity. EXTREMITIES: No clubbing, no edema, no cyanosis, 2+ pulses and upper and lower extremities. Bilateral lower extremities are a strep, there is a right lower leg ELICEO drain with small amount of serosanguineous output MUSCULOSKELETAL: Muscle strength and tone normal. SPINE: No scoliosis or deformity SKIN: No rashes CENTRAL NERVOUS SYSTEM: Alert and oriented -3. No focal deficits, tone is normal in all 4 extremities. PSYCHIATRIC: Alert and oriented -3. Appropriate affect. Intact judgment and insight. - Labs CBC & Chem 7: 02/05/18 05:10 02/05/18 05:10 Labs: Abnormal Lab Results - Last 24 Hours (Table) 02/04/18 02/04/18 02/05/18 Range/Units 17:52 20:39 05:10 WBC 11.4 H (3.8-10.6) k/uL RBC 2.83 L (3.80-5.40) m/uL Hgb 8.7 L (11.4-16.0) gm/dL Hct 26.1 L (34.0-46.0) % RDW 17.5 H (11.5-15.5) % Plt Count 128 L (150-450) k/uL Neutrophils # 9.0 H (1.3-7.7) k/uL Lymphocytes # 0.9 L (1.0-4.8) k/uL BUN (7-17) mg/dL Creatinine (0.52-1.04) mg/dL POC Glucose (mg/dL) 125 H (75-99) mg/dL Phosphorus 7.0 H (2.5-4.5) mg/dL Magnesium 2.6 H (1.6-2.3) mg/dL AST (14-36) U/L ALT (9-52) U/L Alkaline Phosphatase (38-126) U/L Total Protein (6.3-8.2) g/dL Albumin (3.5-5.0) g/dL 02/05/18 02/05/18 Range/Units 05:10 07:43 WBC (3.8-10.6) k/uL RBC (3.80-5.40) m/uL Hgb (11.4-16.0) gm/dL Hct (34.0-46.0) % RDW (11.5-15.5) % Plt Count (150-450) k/uL Neutrophils # (1.3-7.7) k/uL Lymphocytes # (1.0-4.8) k/uL BUN 60 H (7-17) mg/dL Creatinine 5.60 H* (0.52-1.04) mg/dL POC Glucose (mg/dL) 101 H (75-99) mg/dL Phosphorus 7.4 H (2.5-4.5) mg/dL Magnesium 2.8 H (1.6-2.3) mg/dL AST 196 H (14-36) U/L ALT 135 H (9-52) U/L Alkaline Phosphatase 161 H (38-126) U/L Total Protein 5.3 L (6.3-8.2) g/dL Albumin 3.1 L (3.5-5.0) g/dL Assessment and Plan Assessment: Assessment: Severe triple-vessel coronary disease Postop day #5, status post four-vessel bypass grafting. Postoperative respiratory failure, with extubation on February 01. Acute non-ST segment elevation myocardial infarction Severe ischemic cardiomyopathy Systolic congestive heart failure Benign essential hypertension Hyperlipidemia Extrinsic ALLERGIC alveolitis Mild COPD Previous tobacco history Acute and worsening renal failure current creatinine 5.60. Elevated liver enzymes, improving. Plan: The patient was seen and evaluated by Dr. Amador. Chest x-ray and labs were reviewed. The plan is to decrease the diuretics. Nephrology is on the case now as well. She continues to work well of the incentive spirometer. We'll increase her activity as tolerated. We'll continue to follow and make further recommendations based on her clinical status. I, the cosigning physician, performed a history & physical examination of the patient. Lungs sounds few scattered rhonchi crackles in the posterior bases more so on the right.. Maintaining good O2 saturations in the 90s on 3 L high flow nasal cannula. I discussed the assessment and plan of care with my nurse practitioner, Leonie Ness. I attest to the above note as dictated by her.
--- NOTE | 2018-02-05 12:29 | PN ---
PROGRESS NOTE Mrs. Cutler is a 73-year-old female who presented with symptoms of congestive heart failure, was found to have severe triple-vessel coronary artery disease and severely impaired left ventricular systolic function and underwent cardiac catheterization and subsequently coronary artery bypass grafting, where she received DURON to LAD, saphenous vein graft to diagonal branch, obtuse marginal branch in the PDA. She was in atrial fibrillation earlier, but she is back in sinus mechanism. She feels better today. Her breathing is better. She denies any symptoms of chest pain. Hemodynamically, she is stable. She has continued to be at this time on amiodarone 400 mg twice a day, aspirin once a day, Plavix 75 mg daily, Lasix 40 mg IV q.12 hours, metoprolol tartrate 6.25 mcg twice a day. PHYSICAL EXAMINATION: Blood pressure 120/40 with a heart rate in the 70s. LUNGS: No wheezes. HEART: Regular rate and rhythm. S1, S2. No S3. No rub. ABDOMEN: Soft, nontender. EXTREMITIES: No significant edema. LAB DATA: Revealed BUN and creatinine 60 and 5.6, potassium 4.8. Hemoglobin of 8.7. Her liver function tests have improved. IMPRESSION: 1. Status post coronary artery bypass grafting. 2. Ischemic cardiomyopathy. 3. Renal failure. 4. Elevated liver function tests, improving, probably liver congestion. 5. Paroxysmal atrial fibrillation. 6. History of hypertension. RECOMMENDATION: From the cardiac standpoint, will continue present medical therapy. If she has further episodes of atrial fibrillation, then she should be anticoagulated. Will follow her renal function closely as well as liver function tests. When they are stabilized, then a statin can be added to her regimen. MMODL / IJN: [id number] /
[2018-02-05] MEDS: LACTULOSE 20 GM/30 ML CUP PO ONE (12:33)
[2018-02-05] MEDS: CALCIUM ACETATE 667 MG CAP PO SCH ×2 (12:37→18:55)
[2018-02-05 12:39] LABS: Glucose,Whole Blood 129 mg/dL (75-99)
[2018-02-05] MEDS: MAGNESIUM HYDROXIDE 2,400 MG/10 ML CUP PO PRN (15:36)
[2018-02-05 17:45] LABS: Glucose,Whole Blood 119 mg/dL (75-99)
[2018-02-05 20:45] LABS: Glucose,Whole Blood 142 mg/dL (75-99)
[2018-02-05] MEDS: SENNOSIDES-DOCUSATE SODIUM 1 EACH TAB PO SCH (20:57)
[2018-02-05] MEDS ORDERED: NA PHOS,M-B/NA PHOS,DI-BA 133 ML ENEMA RECTAL ONE (21:58)
[2018-02-05] MEDS: HYDROcodone/APAP 5-325MG 1 EACH TAB PO PRN (21:58)
--- NOTE | 2018-02-06 00:44 | P.PN ---
Subjective Progress Note Date: 02/04/18 Principal diagnosis: Status post cardiac catheterization. Triple-vessel disease This is a pleasant 73-year-old female patient with a past medical history significant for hypertension and dyslipidemia with no documented history of coronary artery disease or congestive heart failure presented to the hospital complaining of shortness of breath for the last 3 weeks. The patient stated that the shortness of breath was started about 3 weeks ago. Beside that she describes epigastric discomfort. She stated she developed bilateral lower extremities edema and she was seen by her primary care physician who put her on Lasix with improvement in the edema. The patient did not have any symptoms of chest pain or discomfort, dizziness or lightheadedness , or any syncope. She does have epigastric discomfort mainly. The EKG showed sinus rhythm with nonspecific changes in the inferior leads. There was also some ST and T wave abnormalities seems to be diffuse. Beside that the d-dimer came in to be abnormal and the patient is in process to have a CTA of the chest to rule out any PE. The BNP came in to be also severely abnormal and the patient was given Lasix IV in the emergency room. The first set of troponin also came in to be slightly abnormal. The patient underwent an emergent heart catheterization and that revealed severe triple-vessel coronary artery disease. She was seen and evaluated by cardiothoracic surgeon and the plan is to proceed with CABG this coming Wednesday. 01/28/2018 Patient seen and examined at bedside in ICU; family members at bedside; she denies any chest pain or shortness of breath; patient is continued on aspirin, metoprolol, Lasix and Aldactone; statins and lisinopril has been continued; echocardiogram showed impaired left ventricular function with ejection fraction of 25-30% 01/29/2018 Patient remains in ICU; sitting up in a chair and denies any chest pain or shortness of breath; overall patient seems to be doing better 01/30/2018 Patient remains in ICU and remains chest pain-free; patient relates that her swelling in both lower extremities is improved; she remains on Lasix and Aldactone Patient is scheduled for CABG in the morning 01/31/2018 Patient underwent quadruple bypass graft today currently intubated postoperatively. Pulmonary and CT surgery is following. Chest x-ray showed left lower lung atelectasis and possible postoperative changes. 02/01/2018 Patient is status post quadruple bypass graft. Patient was successfully weaned off of ventilator. Next and chest x-ray showed mild fluid overload. Otherwise patient is awake alert and lying in the bed comfortable.. Patient went to atrial fibrillation and was started on amiodarone. No fever no chills. No chest pain or worsening shortness of breath. Complete review of systems could not be apparent from the patient. 02/02/2018 Patient is more awake and alert today. Able to also simple questions. Currently converted back to sinus rhythm. Amiodarone has been changed to oral. Patient is on dopamine drip at low-dose. Continued on IV Lasix drip. Patient is being converted on aspirin, Plavix and statins. Cardiology and pulmonary is following. No fever no chills. Patient denied any worsening shortness of breath or chest pain. 02/03/2018 Patient is awake and oriented able to sit in the chair and is improving clinically and patient is maintained on Lasix drip. Off pressors support. No other acute overnight issues. Cardiology and pulmonary is following. Clinically improving. 02/04/2018 Patient is currently sitting in the chair. Part spreading in physical therapy. Still on IV Lasix and her leg swelling is improving otherwise. BUN 50 creatinine 4.7 Chest x-ray showed interval al of left pleural chest tube. Pulmonary venous hypertension and interstitial edema . Tolerating oral diet. Crestor is on hold due to elevated laryngitis which are trending down now. No complaints of chest pain. No worsening shortness of breath. No nausea vomiting or abdominal pain. All other review of systems negative except the above Active Medications Generic Name Dose Route Start Last Admin Trade Name Freq PRN Reason Stop Dose Admin Hydrocodone Bitart/Acetaminophen 2 each 02/01/18 14:36 02/03/18 07:57 [place] 5-325 PO 2 each Q4HR PRN Administration Severe Pain Hydrocodone Bitart/Acetaminophen 1 each 02/01/18 14:36 02/03/18 17:58 [place] 5-325 PO 1 each Q4HR PRN Administration Moderate Pain Albuterol/Ipratropium 3 ml 02/01/18 14:37 Duoneb 0.5 Mg-3 Mg/3 Ml Soln INHALATION RT-Q2H PRN Shortness Of Breath Or Wheezing Albuterol/Ipratropium 3 ml 02/01/18 14:37 02/03/18 18:49 Duoneb 0.5 Mg-3 Mg/3 Ml Soln INHALATION 3 ml RT-QID ERIN Administration Amiodarone HCl 400 mg 02/03/18 21:00 02/03/18 22:49 Cordarone PO 400 mg BID ERIN Administration Aspirin 325 mg 02/01/18 09:00 02/03/18 07:59 Aspirin PO 325 mg DAILY ERIN Administration Benzocaine/Menthol 1 each 01/31/18 14:43 Cepacol Lozenge MUCOUS MEM Q2H PRN Sore Throat Bisacodyl 10 mg 02/01/18 14:36 Dulcolax RECTAL DAILY PRN Constipation Clopidogrel Bisulfate 75 mg 02/01/18 09:00 02/03/18 07:59 Plavix PO 75 mg DAILY ERIN Administration Heparin Sodium (Porcine) 5,000 unit 02/01/18 00:00 02/03/18 15:39 Heparin SQ 5,000 unit Q8HR ERIN Administration Lactated Ringer's 1,000 mls @ 20 mls/hr 01/31/18 14:43 02/03/18 15:13 Lactated Ringers IV 20 mls/hr .Q24H [facility]IN Administration Furosemide 250 mg/ Sodium 250 mls @ 20 mls/hr 02/02/18 08:00 02/03/18 20:30 Chloride IVP 15 mg/hr .[id number] ERIN 15 mls/hr 20 MG/HR Administration Norepinephrine Bitartrate 16 mg in 250 mls @ 0 mls/hr 02/02/18 11:30 21:30 Levophed-0.9% Nacl 16 Mg/250ml Pmx IV 0 mcg/min .Q0M ERIN 0 mls/hr Protocol Titration Titrate Insulin Aspart 0 unit 02/01/18 17:30 02/03/18 22:53 Novolog SQ Not Given [id number] [facility] Protocol Magnesium Hydroxide 2,400 mg 02/01/18 14:36 Milk Of Magnesia PO BID PRN Constipation Metoclopramide HCl 10 mg 01/31/18 14:43 Reglan IVP Q4H PRN Nausea And Vomiting Metoprolol Tartrate 12.5 mg 02/02/18 09:00 02/03/18 22:59 Lopressor PO Not Given BID ERIN Miscellaneous Information 1 each 01/31/18 14:43 Magnesium Per Protocol MISCELLANE DAILY PRN Per Protocol Protocol Miscellaneous Information 1 each 01/31/18 14:43 Phosphorus Per Protocol MISCELLANE DAILY PRN Per Protocol Protocol Miscellaneous Information 1 each 01/31/18 14:43 Potassium Per Protocol MISCELLANE DAILY PRN Per Protocol Protocol Ondansetron HCl 4 mg 01/31/18 14:43 02/02/18 07:58 Zofran IVP 4 mg Q6HR PRN Administration Nausea And Vomiting Pantoprazole Sodium 40 mg 02/03/18 07:30 02/03/18 11:24 Protonix PO 40 mg AC-[id number] ERIN Administration Senna/Docusate Sodium 2 each 02/01/18 21:00 02/03/18 22:49 Senokot-S PO 2 each HS ERIN Administration Sodium Chloride 10 ml 01/31/18 21:00 02/03/18 22:59 Saline Flush IV 10 ml BID ERIN Administration Objective - Vital Signs Vital signs: Vital Signs Temp 98.1 F 02/04/18 12:00 Pulse 109 H 02/04/18 20:04 Resp 22 02/04/18 04:00 BP 115/57 02/03/18 09:00 Pulse Ox 95 02/04/18 19:00 Intake & Output 02/04/18 02/04/18 02/05/18 06:59 18:59 06:59 Intake Total 340.25 1107 26 Output Total 795 1040 100 Balance -454.75 67 -74 Weight 85 kg Intake: IV 286 342 26 Furosemide 250 mg In 140 10 Sodium Chloride 0.9% 225 ml @ 10 MG/HR 10 mls/hr IVP .Q24H [facility]IN Rx#: [id number] Lactated Ringers 1,000 ml 220 130 10 @ 10 mls/hr IV .Q24H ERIN Rx#:[id number] pressure bag 66 72 6 Intake, IV Titration 54.25 165 Amount Furosemide 250 mg In 54.25 165 Sodium Chloride 0.9% 225 ml @ 10 MG/HR 10 mls/hr IVP .Q24H [facility]IN Rx#: [id number] Oral 600 Output: Drainage 170 30 Right Calf 170 30 Urine 625 1010 100 Other: Voiding Method Indwelling Catheter Indwelling Catheter # Voids 0 # Bowel Movements 0 ABP, PAP, CO, CI - Last Documented Arterial Blood Pressure 112/54 Pulmonary Artery Pressure 51/26 Cardiac Output 5.4 Cardiac Index 3.0 - Exam PHYSICAL EXAMINATION: Patient is lying in the bed comfortably, no acute distress, awake alert and oriented HEENT: Normocephalic. Neck is supple. Pupils reactive. Nostrils clear. Oral cavity is moist. Ears reveal no drainage. Neck reveals no JVD, carotid bruits, or thyromegaly. CHEST EXAMINATION: Trachea is central. Symmetrical expansion. Bibasilar minimal crackles. No wheezing Chest tubes in place.. CARDIAC: Normal S1, S2 with no gallops. No murmurs ABDOMEN: Soft. Bowel sounds normal. No organomegaly. No abdominal bruits. Extremities: reveal 2+ edema. No clubbing or cyanosis Neurologically awake alert and oriented 3. No focal deficits noted Skin: No rash or skin lesions. Psychiatric: Could not be assessed completely Musculoskeletal: No joint swelling or deformity. Normal range of motion. - Labs CBC & Chem 7: 02/05/18 05:10 02/05/18 05:10 Labs: Abnormal Lab Results - Last 24 Hours (Table) 02/04/18 02/04/18 02/04/18 Range/Units 04:40 04:40 17:52 WBC 12.6 H (3.8-10.6) k/uL RBC 2.73 L (3.80-5.40) m/uL Hgb 8.5 L (11.4-16.0) gm/dL Hct 24.9 L (34.0-46.0) % RDW 17.0 H (11.5-15.5) % Plt Count 108 L (150-450) k/uL Neutrophils # 10.4 H (1.3-7.7) k/uL Lymphocytes # 0.8 L (1.0-4.8) k/uL Sodium 136 L (137-145) mmol/L Potassium 5.2 H (3.5-5.1) mmol/L Carbon Dioxide 21 L (22-30) mmol/L BUN 50 H (7-17) mg/dL Creatinine 4.70 H (0.52-1.04) mg/dL POC Glucose (mg/dL) (75-99) mg/dL Phosphorus 6.6 H 7.0 H (2.5-4.5) mg/dL Magnesium 2.6 H 2.6 H (1.6-2.3) mg/dL AST 303 H (14-36) U/L ALT 176 H (9-52) U/L Alkaline Phosphatase 180 H (38-126) U/L Total Protein 5.1 L (6.3-8.2) g/dL Albumin 3.1 L (3.5-5.0) g/dL 02/04/18 Range/Units 20:39 WBC (3.8-10.6) k/uL RBC (3.80-5.40) m/uL Hgb (11.4-16.0) gm/dL Hct (34.0-46.0) % RDW (11.5-15.5) % Plt Count (150-450) k/uL Neutrophils # (1.3-7.7) k/uL Lymphocytes # (1.0-4.8) k/uL Sodium (137-145) mmol/L Potassium (3.5-5.1) mmol/L Carbon Dioxide (22-30) mmol/L BUN (7-17) mg/dL Creatinine (0.52-1.04) mg/dL POC Glucose (mg/dL) 125 H (75-99) mg/dL Phosphorus (2.5-4.5) mg/dL Magnesium (1.6-2.3) mg/dL AST (14-36) U/L ALT (9-52) U/L Alkaline Phosphatase (38-126) U/L Total Protein (6.3-8.2) g/dL Albumin (3.5-5.0) g/dL Assessment and Plan Assessment: Acute non-ST elevated [place]. Status post Cardiac catheterization showed triple- vessel disease. Status post quadruple bypass graft on 01/31/2018 Atrial fibrillation with rapid ventricular rate. Started on amiodarone and metoprolol Acute kidney injury due to ATN with worsening creatinine level Exertional shortness of breath for 2 weeks prior to admission Acute CHF with systolic dysfunction Severe ischemic cardio myopathy Leukocytosis. Likely reactive. Hypertension hyperlipidemia Obesity DVT prophylaxis Plan: Continue with the aspirin statins and metoprolol and lisinopril and Aldactone. Continue with Lasix drip. Continue with amiodarone changed to oral. Cardiology and cardiac surgery is following. We'll continue to monitor renal function. Follow-up CBC and BMP tomorrow. Continue to monitor the patient in ICU. Further recommendations based on the clinical course. Time with Patient: Greater than 30
--- NOTE | 2018-02-06 00:47 | P.PN ---
Subjective Progress Note Date: 02/05/18 Principal diagnosis: Status post cardiac catheterization. Triple-vessel disease This is a pleasant 73-year-old female patient with a past medical history significant for hypertension and dyslipidemia with no documented history of coronary artery disease or congestive heart failure presented to the hospital complaining of shortness of breath for the last 3 weeks. The patient stated that the shortness of breath was started about 3 weeks ago. Beside that she describes epigastric discomfort. She stated she developed bilateral lower extremities edema and she was seen by her primary care physician who put her on Lasix with improvement in the edema. The patient did not have any symptoms of chest pain or discomfort, dizziness or lightheadedness , or any syncope. She does have epigastric discomfort mainly. The EKG showed sinus rhythm with nonspecific changes in the inferior leads. There was also some ST and T wave abnormalities seems to be diffuse. Beside that the d-dimer came in to be abnormal and the patient is in process to have a CTA of the chest to rule out any PE. The BNP came in to be also severely abnormal and the patient was given Lasix IV in the emergency room. The first set of troponin also came in to be slightly abnormal. The patient underwent an emergent heart catheterization and that revealed severe triple-vessel coronary artery disease. She was seen and evaluated by cardiothoracic surgeon and the plan is to proceed with CABG this coming Wednesday. 01/28/2018 Patient seen and examined at bedside in ICU; family members at bedside; she denies any chest pain or shortness of breath; patient is continued on aspirin, metoprolol, Lasix and Aldactone; statins and lisinopril has been continued; echocardiogram showed impaired left ventricular function with ejection fraction of 25-30% 01/29/2018 Patient remains in ICU; sitting up in a chair and denies any chest pain or shortness of breath; overall patient seems to be doing better 01/30/2018 Patient remains in ICU and remains chest pain-free; patient relates that her swelling in both lower extremities is improved; she remains on Lasix and Aldactone Patient is scheduled for CABG in the morning 01/31/2018 Patient underwent quadruple bypass graft today currently intubated postoperatively. Pulmonary and CT surgery is following. Chest x-ray showed left lower lung atelectasis and possible postoperative changes. 02/01/2018 Patient is status post quadruple bypass graft. Patient was successfully weaned off of ventilator. Next and chest x-ray showed mild fluid overload. Otherwise patient is awake alert and lying in the bed comfortable.. Patient went to atrial fibrillation and was started on amiodarone. No fever no chills. No chest pain or worsening shortness of breath. Complete review of systems could not be apparent from the patient. 02/02/2018 Patient is more awake and alert today. Able to also simple questions. Currently converted back to sinus rhythm. Amiodarone has been changed to oral. Patient is on dopamine drip at low-dose. Continued on IV Lasix drip. Patient is being converted on aspirin, Plavix and statins. Cardiology and pulmonary is following. No fever no chills. Patient denied any worsening shortness of breath or chest pain. 02/03/2018 Patient is awake and oriented able to sit in the chair and is improving clinically and patient is maintained on Lasix drip. Off pressors support. No other acute overnight issues. Cardiology and pulmonary is following. Clinically improving. 02/04/2018 Patient is currently sitting in the chair. Part spreading in physical therapy. Still on IV Lasix and her leg swelling is improving otherwise. BUN 50 creatinine 4.7 Chest x-ray showed interval al of left pleural chest tube. Pulmonary venous hypertension and interstitial edema . Tolerating oral diet. Crestor is on hold due to elevated laryngitis which are trending down now. No complaints of chest pain. No worsening shortness of breath. No nausea vomiting or abdominal pain. 02/05/2018 Patient currently sitting in the chair comfortably. No complaints of chest pain or worsening shortness of breath. Otherwise symptomatically much improved now. Participating in physical therapy. Chest x-ray showed postoperative changes with left basilar air space disease and small bilateral pleural effusions. Patient is being continued on IV Lasix now. BUN 60 creatinine 5.6. Amiodarone has been changed to metoprolol low-dose. Patient is being followed by cardiology and nephrology and pulmonary. All other review of systems negative except the above Active Medications Generic Name Dose Route Start Last Admin Trade Name Freq PRN Reason Stop Dose Admin Hydrocodone Bitart/Acetaminophen 2 each 02/01/18 14:36 02/05/18 21:58 [place] 5-325 PO 1 each Q4HR PRN Administration Severe Pain Hydrocodone Bitart/Acetaminophen 1 each 02/01/18 14:36 02/04/18 02:41 [place] 5-325 PO 1 each Q4HR PRN Administration Moderate Pain Albuterol/Ipratropium 3 ml 02/01/18 14:37 Duoneb 0.5 Mg-3 Mg/3 Ml Soln INHALATION RT-Q2H PRN Shortness Of Breath Or Wheezing Albuterol/Ipratropium 3 ml 02/01/18 14:37 02/05/18 20:15 Duoneb 0.5 Mg-3 Mg/3 Ml Soln INHALATION 3 ml RT-QID ERIN Administration Amiodarone HCl 400 mg 02/03/18 21:00 02/05/18 20:55 Cordarone PO 400 mg BID ERIN Administration Aspirin 325 mg 02/01/18 09:00 02/05/18 08:03 Aspirin PO 325 mg DAILY ERIN Administration Benzocaine/Menthol 1 each 01/31/18 14:43 Cepacol Lozenge MUCOUS MEM Q2H PRN Sore Throat Bisacodyl 10 mg 02/01/18 14:36 Dulcolax RECTAL DAILY PRN Constipation Budesonide/Formoterol Fumarate 2 puff 02/04/18 08:54 02/05/18 20:15 Symbicort 160-4.5 Mcg Inhaler INHALATION 2 puff RT-BID ERIN Administration Calcium Acetate 667 mg 02/04/18 12:30 02/05/18 18:55 Phoslo PO 667 mg BID@1230,1730 ERIN Administration Clopidogrel Bisulfate 75 mg 02/01/18 09:00 02/05/18 08:03 Plavix PO 75 mg DAILY ERIN Administration Furosemide 40 mg 02/05/18 09:30 02/05/18 20:56 Lasix IV 40 mg Q12HR ERIN Administration Heparin Sodium (Porcine) 5,000 unit 02/01/18 00:00 02/05/18 23:58 Heparin SQ 5,000 unit Q8HR ERIN Administration Norepinephrine Bitartrate 16 mg in 250 mls @ 0 mls/hr 02/02/18 11:30 21:30 Levophed-0.9% Nacl 16 Mg/250ml Pmx IV 0 mcg/min .Q0M ERIN 0 mls/hr Protocol Titration Titrate Insulin Aspart 0 unit 02/01/18 17:30 02/05/18 21:08 Novolog SQ 1 unit [id number] ERIN Administration Protocol Magnesium Hydroxide 2,400 mg 02/01/18 14:36 02/05/18 15:36 Milk Of Magnesia PO 2,400 mg BID PRN Administration Constipation Metoclopramide HCl 10 mg 01/31/18 14:43 Reglan IVP Q4H PRN Nausea And Vomiting Metoprolol Tartrate 6.25 mg 02/04/18 10:02 02/05/18 20:56 Lopressor PO 6.25 mg BID ERIN Administration Miscellaneous Information 1 each 01/31/18 14:43 Magnesium Per Protocol MISCELLANE DAILY PRN Per Protocol Protocol Miscellaneous Information 1 each 01/31/18 14:43 Phosphorus Per Protocol MISCELLANE DAILY PRN Per Protocol Protocol Miscellaneous Information 1 each 01/31/18 14:43 Potassium Per Protocol MISCELLANE DAILY PRN Per Protocol Protocol Ondansetron HCl 4 mg 01/31/18 14:43 02/02/18 07:58 Zofran IVP 4 mg Q6HR PRN Administration Nausea And Vomiting Pantoprazole Sodium 40 mg 02/03/18 07:30 02/05/18 08:03 Protonix PO 40 mg AC-BRKFST ERIN Administration Senna/Docusate Sodium 2 each 02/01/18 21:00 02/05/18 20:57 Senokot-S PO 2 each HS ERIN Administration Sodium Chloride 10 ml 01/31/18 21:00 02/05/18 20:57 Saline Flush IV 10 ml BID ERIN Administration Objective - Vital Signs Vital signs: Vital Signs Temp 98.1 F 02/05/18 16:00 Pulse 75 02/05/18 20:24 Resp 18 02/05/18 19:00 BP 109/58 02/05/18 19:00 Pulse Ox 94 L 02/05/18 19:00 Intake & Output 02/05/18 02/05/18 02/06/18 06:59 18:59 06:59 Intake Total 1273 1084.0 3 Output Total 2435 1615 125 Balance -1162 -531.0 -122 Weight 84 kg Intake: IV 199 84.0 3 Furosemide 250 mg In 40 Sodium Chloride 0.9% 225 ml @ 10 MG/HR 10 mls/hr IVP .Q24H [facility] Rx#: [id number] Lactated Ringers 1,000 ml 120 37.5 @ 10 mls/hr IV .Q24H [facility] Rx#:[id number] pressure bag 39 46.5 3 Oral 1074 1000 Output: Drainage 260 40 Right Calf 260 40 Urine 2175 1575 125 Other: Voiding Method Indwelling Catheter Indwelling Catheter # Voids 0 # Bowel Movements 0 ABP, PAP, CO, CI - Last Documented Arterial Blood Pressure 114/36 Pulmonary Artery Pressure 51/26 Cardiac Output 5.4 Cardiac Index 3.0 - Exam PHYSICAL EXAMINATION: Patient is lying in the bed comfortably, no acute distress, awake alert and oriented HEENT: Normocephalic. Neck is supple. Pupils reactive. Nostrils clear. Oral cavity is moist. Ears reveal no drainage. Neck reveals no JVD, carotid bruits, or thyromegaly. CHEST EXAMINATION: Trachea is central. Symmetrical expansion. Bibasilar minimal crackles. No wheezing Chest tubes in place.. CARDIAC: Normal S1, S2 with no gallops. No murmurs ABDOMEN: Soft. Bowel sounds normal. No organomegaly. No abdominal bruits. Extremities: reveal 2+ edema. No clubbing or cyanosis Neurologically awake alert and oriented 3. No focal deficits noted Skin: No rash or skin lesions. Psychiatric: Could not be assessed completely Musculoskeletal: No joint swelling or deformity. Normal range of motion. - Labs CBC & Chem 7: 02/05/18 05:10 02/05/18 05:10 Labs: Abnormal Lab Results - Last 24 Hours (Table) 02/05/18 02/05/18 02/05/18 Range/Units 05:10 05:10 07:43 WBC 11.4 H (3.8-10.6) k/uL RBC 2.83 L (3.80-5.40) m/uL Hgb 8.7 L (11.4-16.0) gm/dL Hct 26.1 L (34.0-46.0) % RDW 17.5 H (11.5-15.5) % Plt Count 128 L (150-450) k/uL Neutrophils # 9.0 H (1.3-7.7) k/uL Lymphocytes # 0.9 L (1.0-4.8) k/uL BUN 60 H (7-17) mg/dL Creatinine 5.60 H* (0.52-1.04) mg/dL POC Glucose (mg/dL) 101 H (75-99) mg/dL Phosphorus 7.4 H (2.5-4.5) mg/dL Magnesium 2.8 H (1.6-2.3) mg/dL AST 196 H (14-36) U/L ALT 135 H (9-52) U/L Alkaline Phosphatase 161 H (38-126) U/L Total Protein 5.3 L (6.3-8.2) g/dL Albumin 3.1 L (3.5-5.0) g/dL 02/05/18 02/05/18 02/05/18 Range/Units 12:35 17:42 20:43 WBC (3.8-10.6) k/uL RBC (3.80-5.40) m/uL Hgb (11.4-16.0) gm/dL Hct (34.0-46.0) % RDW (11.5-15.5) % Plt Count (150-450) k/uL Neutrophils # (1.3-7.7) k/uL Lymphocytes # (1.0-4.8) k/uL BUN (7-17) mg/dL Creatinine (0.52-1.04) mg/dL POC Glucose (mg/dL) 129 H 119 H 142 H (75-99) mg/dL Phosphorus (2.5-4.5) mg/dL Magnesium (1.6-2.3) mg/dL AST (14-36) U/L ALT (9-52) U/L Alkaline Phosphatase (38-126) U/L Total Protein (6.3-8.2) g/dL Albumin (3.5-5.0) g/dL Assessment and Plan Assessment: Acute non-ST elevated [place]. Status post Cardiac catheterization showed triple- vessel disease. Status post quadruple bypass graft on 01/31/2018 Atrial fibrillation with rapid ventricular rate. Currently on low-dose metoprolol Acute kidney injury due to ATN with worsening creatinine level Exertional shortness of breath for 2 weeks prior to admission Acute CHF with systolic dysfunction Severe ischemic cardio myopathy Leukocytosis. Likely reactive. Hypertension hyperlipidemia Obesity DVT prophylaxis Plan: Continue with the aspirin statins and metoprolol and lisinopril and metoprolol. Continue with Lasix drip, changed to Lasix IV twice a day. Cardiology and cardiac surgery is following. PT OT is following. A alonso is tolerating oral diet otherwise. We'll continue to monitor renal function. Follow-up CBC and BMP tomorrow. Continue to monitor the patient in ICU. Further recommendations based on the clinical course. Time with Patient: Greater than 30
[2018-02-06 01:43] LABS: Glucose,Whole Blood 137 mg/dL (75-99)
[2018-02-06 05:24] LABS: Anisocytosis Slight; Basophils % (A) 0 %; Eosinophils # (A) 0.3 k/uL (0-0.7); Eosinophils % (A) 2 %; HCT 29.3 % (34.0-46.0); HGB 9.5 gm/dL (11.4-16.0); Lymphocytes # (A) 0.6 k/uL (1.0-4.8); Lymphocytes % (A) 4 %; MCH 29.9 pg (25.0-35.0); MCHC 32.5 g/dL (31.0-37.0); MCV 92.2 fL (80.0-100.0); Mean Platelet Volume 8.3; Monocytes % (A) 7 %; Neutrophils # (A) 11.5 k/uL (1.3-7.7); Neutrophils % (A) 85 %; Platelet Count 166 k/uL (150-450); RBC 3.18 m/uL (3.80-5.40); RDW 17.3 % (11.5-15.5); WBC 13.6 k/uL (3.8-10.6)
[2018-02-06 05:34] LABS: Albumin 3.3 g/dL (3.5-5.0); Calcium 9.7 mg/dL (8.4-10.2); Potassium 4.4 mmol/L (3.5-5.1); Total Bilirubin 0.8 mg/dL (0.2-1.3); Total Protein 5.7 g/dL (6.3-8.2)
[2018-02-06 05:43] LABS: Phosphorus 8.8 mg/dL (2.5-4.5)
[2018-02-06] MEDS: INSULIN ASPART 100 UNIT/ML 1 ML 10 ML VIAL SQ SCH ×5 (05:46→20:13)
--- NOTE | 2018-02-06 06:36 | XR ---
EXAMINATION TYPE: XR chest 1V portable DATE OF EXAM: 02/06/2018 HISTORY: post op CABG. REFERENCE: Previous study dated 02/05/2018. FINDINGS: There has been a midline sternotomy. The patient right internal jugular sheath is been rafael bran. The guidewire in the left axillary vein is been removed. Opacity overlying the innominate vein i s no longer present. The heart is mildly enlarged. There is bibasilar airspace disease, worse on the left than the right. There are small effusions. The overall appearance is similar to previous. IMPRESSION: CONTINUING POSTOPERATIVE CHANGE.
[2018-02-06 07:20] LABS: Glucose,Whole Blood 112 mg/dL (75-99)
[2018-02-06] MEDS: AMIODARONE 200 MG TAB PO SCH ×2 (07:49→20:12)
[2018-02-06] MEDS: IPRATROPIUM-ALBUTEROL 3 ML NEB INHALATION SCH ×4 (07:56→20:18)
[2018-02-06] MEDS: SYMBICORT 160-4.5 MCG INHALER INHALATION SCH ×2 (07:56→20:16)
--- NOTE | 2018-02-06 08:17 | P.PN ---
Subjective Progress Note Date: 02/06/18 Principal diagnosis: This is a 72-year-old female who was seen in consultation and followed up for acute kidney injury secondary to prerenal from acute NV, post CABG and atrial fibrillation, with cardiomyopathy and ejection fraction of 25-30% prior to bypass surgery. congestive heart failure. She was started on IV Lasix drip and has responded very well yesterday on 02/05/2018 her Lasix drip was discontinued and she was switched over to IV Lasix 60 every 12. She continues to diurese very well. Her creatinine is leveling off. His feeling fairly well remains mildly short of breath on oxygen 3 L nasal cannula. Appetite is slowly returning she had a Fleet enema yesterday to help her move her bowels. Denies any dizziness. Currently she is on 3 L of nasal cannula comfortable sitting out in a chair. She is not on any inotropes. . Objective - Vital Signs Vital signs: Vital Signs Temp 98.2 F 02/06/18 00:00 Pulse 111 H 02/06/18 07:58 Resp 15 02/06/18 07:00 BP 95/65 02/06/18 07:00 Pulse Ox 97 02/06/18 07:00 Intake & Output 02/05/18 02/06/18 02/06/18 18:59 06:59 18:59 Intake Total 1084.0 276 403 Output Total 1615 1685 180 Balance -531.0 -1409 223 Weight 84.1 kg Intake: IV 84.0 36 3 Lactated Ringers 1,000 ml 37.5 @ 10 mls/hr IV .Q24H [facility] Rx#:[id number] pressure bag 46.5 36 3 Oral 1000 240 400 Output: Drainage 40 30 Right Calf 40 30 Urine 1575 1685 150 Other: Voiding Method Indwelling Catheter Indwelling Catheter # Bowel Movements 1 ABP, PAP, CO, CI - Last Documented Arterial Blood Pressure 116/60 Pulmonary Artery Pressure 51/26 Cardiac Output 5.4 Cardiac Index 3.0 On examination she is on 3 L nasal cannula comfortable. HEENT exam no JVP neck is supple no facial asymmetry Lungs are clear to auscultation good air entry bilaterally Heart sounds are unremarkable for any murmur rub gallop on the monitor she is showing normal sinus rhythm Abdomen is soft nontender nondistended Extremity exam was trace edema. Central nervous system exam, neurologically awake alert oriented. - Labs CBC & Chem 7: 02/06/18 05:10 02/06/18 05:10 Labs: Abnormal Lab Results - Last 24 Hours (Table) 02/05/18 02/05/18 02/05/18 Range/Units 12:35 17:42 20:43 WBC (3.8-10.6) k/uL RBC (3.80-5.40) m/uL Hgb (11.4-16.0) gm/dL Hct (34.0-46.0) % RDW (11.5-15.5) % Neutrophils # (1.3-7.7) k/uL Lymphocytes # (1.0-4.8) k/uL Sodium (137-145) mmol/L Chloride (98-107) mmol/L BUN (7-17) mg/dL Creatinine (0.52-1.04) mg/dL Glucose (74-99) mg/dL POC Glucose (mg/dL) 129 H 119 H 142 H (75-99) mg/dL Phosphorus (2.5-4.5) mg/dL Magnesium (1.6-2.3) mg/dL AST (14-36) U/L ALT (9-52) U/L Alkaline Phosphatase (38-126) U/L Total Protein (6.3-8.2) g/dL Albumin (3.5-5.0) g/dL 02/06/18 02/06/18 02/06/18 Range/Units 01:41 05:10 05:10 WBC 13.6 H (3.8-10.6) k/uL RBC 3.18 L (3.80-5.40) m/uL Hgb 9.5 L (11.4-16.0) gm/dL Hct 29.3 L (34.0-46.0) % RDW 17.3 H (11.5-15.5) % Neutrophils # 11.5 H (1.3-7.7) k/uL Lymphocytes # 0.6 L (1.0-4.8) k/uL Sodium 136 L (137-145) mmol/L Chloride 93 L (98-107) mmol/L BUN 71 H (7-17) mg/dL Creatinine 5.70 H* (0.52-1.04) mg/dL Glucose 121 H (74-99) mg/dL POC Glucose (mg/dL) 137 H (75-99) mg/dL Phosphorus 8.8 H* (2.5-4.5) mg/dL Magnesium 4.0 H (1.6-2.3) mg/dL AST 108 H (14-36) U/L ALT 105 H (9-52) U/L Alkaline Phosphatase 151 H (38-126) U/L Total Protein 5.7 L (6.3-8.2) g/dL Albumin 3.3 L (3.5-5.0) g/dL 02/06/18 Range/Units 07:18 WBC (3.8-10.6) k/uL RBC (3.80-5.40) m/uL Hgb (11.4-16.0) gm/dL Hct (34.0-46.0) % RDW (11.5-15.5) % Neutrophils # (1.3-7.7) k/uL Lymphocytes # (1.0-4.8) k/uL Sodium (137-145) mmol/L Chloride (98-107) mmol/L BUN (7-17) mg/dL Creatinine (0.52-1.04) mg/dL Glucose (74-99) mg/dL POC Glucose (mg/dL) 112 H (75-99) mg/dL Phosphorus (2.5-4.5) mg/dL Magnesium (1.6-2.3) mg/dL AST (14-36) U/L ALT (9-52) U/L Alkaline Phosphatase (38-126) U/L Total Protein (6.3-8.2) g/dL Albumin (3.5-5.0) g/dL Assessment and Plan Assessment: Impression. 1. Acute kidney injury, multifactorial from prerenal from congestive heart failure acute NV and myopathy atrial fibrillation and post CABG. Was on IV Lasix until earlier this morning 02/05/2018 and has been discontinued and switched over to IV Lasix 60 every 12. Creatinine is up from 4.7-5.6. Baseline creatinine is 1. Expect creatinine to improve in the next few days after plateauing. She is in nonoliguric phase. Urine output is about 100 mL an hour for the last few hours 2. Transient atrial fibrillation currently on normal sinus rhythm. On MR drawn. 3. Status post CABG, dated 02/03/2018 4. Ischemic cardiomyopathy ejection fraction 25-30%. On 02/04/2018 ejection fraction is reported as 30-35% 5. Anemia with hemoglobin of 8.7, improved to 9.5 this morning. 6. Hyperphosphatemia from acute kidney injury as well as some element from the phosphorus and edema Recommendation. 1. Discontinue Lasix and reintroduce if necessary based on exam and chest x- ray findings. 2. Avoid hypotensive episodes if blood. Less than 110 systolic hold Lasix and call me. 3. Watch hemoglobin. 4. No need to treat the hyperphosphatemia as it is expected to improve over the next few days, can maintain the current calcium acetate she is on. 5. Avoid phosphorus-containing enemas
--- NOTE | 2018-02-06 09:03 | PN ---
PROGRESS NOTE Mrs. Cutler is a 72-year-old female with a history of ischemic cardiomyopathy, status post bypass grafting. She is feeling better this morning. She still has some bloating, but had a bowel movement yesterday. She is back in atrial fibrillation. She denies any chest pain. Her breathing has been stable. She denies any dizziness. She has continued to be on amiodarone 400 mg twice a day, aspirin, Plavix 75 mg daily, metoprolol tartrate 6.5 mg twice a day. PHYSICAL EXAMINATION: Blood pressure 116/60 with a heart rate in the one teens. LUNGS: With few crackles at the bases. HEART: Irregular regular S1, S2. No S3 with a systolic murmur at the base. No diastolic murmur. No rub. ABDOMEN: Soft, nontender. EXTREMITIES: No significant edema. LAB DATA: BUN and creatinine of 71 and 5.7, potassium 4.4, hemoglobin 9.5. Her AST and ALT have improved. IMPRESSION: 1. Status post bypass grafting. 2. Ischemic cardiomyopathy. 3. Renal failure. 4. Atrial fibrillation, recurrent. RECOMMENDATION: I will increase the dose of her beta saw. I have discussed her case with the surgical team. Patient needs to be anticoagulated in view of her recurrent atrial fibrillation. They will initiate the anticoagulation. In the meantime. We will continue on the amiodarone. I will increase her metoprolol dose and depending on her progress, further recommendation will be made. MMODL / IJN: [id number] /
--- NOTE | 2018-02-06 09:04 | P.PN ---
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 POD #6 urgent coronary artery bypass grafting 4 using the left internal mammary artery to the mid left anterior descending artery, a reverse greater saphenous vein graft from the aorta to the diagonal artery, a reverse greater saphenous vein graft from the aorta to the first obtuse marginal artery, a reverse greater saphenous vein graft from the aorta to the posterior descending artery. Endoscopic harvesting of the right greater saphenous vein. Intraoperative transesophageal echocardiogram and epi-aortic scanning. Intraoperative graft flow measurements using the [employer] system. Postoperative acute elevation of AST and ALT, an unexpected but potential outcome of surgery. Postoperative paroxysmal atrial fibrillation, an expected outcome of surgery. Acute kidney injury, acute tubular necrosis secondary to hemodynamic changes and hypotension. Patient is currently sitting up to bedside chair. She is in no acute distress. Her daughter is at her bedside. she remains complaining of some bloating, although reports she did have a large bowel movement yesterday. She ambulated in the graham of the ICU with minimal assistance. She denies any complaints of pain or shortness of breath at this time. Objective - Vital Signs Vital signs: Vital Signs Temp 98.2 F 02/06/18 00:00 Pulse 117 H 02/06/18 08:10 Resp 15 02/06/18 07:00 BP 95/65 02/06/18 07:00 Pulse Ox 97 02/06/18 07:00 Intake & Output 02/05/18 02/06/18 02/06/18 18:59 06:59 18:59 Intake Total 1084.0 276 403 Output Total 1615 1685 180 Balance -531.0 -1409 223 Weight 84.1 kg Intake: IV 84.0 36 3 Lactated Ringers 1,000 ml 37.5 @ 10 mls/hr IV .Q24H [facility] Rx#:[id number] pressure bag 46.5 36 3 Oral 1000 240 400 Output: Drainage 40 30 Right Calf 40 30 Urine 1575 1685 150 Other: Voiding Method Indwelling Catheter Indwelling Catheter # Bowel Movements 1 ABP, PAP, CO, CI - Last Documented Arterial Blood Pressure 116/60 Pulmonary Artery Pressure 51/26 Cardiac Output 5.4 Cardiac Index 3.0 - Constitutional General appearance: Present: cooperative, no acute distress, obese - EENT ENT: Present: hearing grossly normal - Neck Details: no JVD, no lymphadenopathy, no JVD. - Respiratory Details: lungs sounds essentially clear to her bilateral upper lobes, few scattered crackles to bilateral bases. Respirations are symmetrical and nonlabored. Oxygen saturation are 95% on 3 L nasal cannula. She is achieving 750 mL on her incentive spirometry. - Cardiovascular Details: irregular rhythm with tachycardic rate. S1 and S2 present, negative for S3, gallop or murmur. Sternum is stable. Bedside telemetry showing atrial fibrillation with RVR heart rate 131. Atrial and ventricular epicardial pacemaker wires intact and grounded. Knee-high RODO hose and sequential compression devices in place to her bilateral lower extremities. Heart hugger and surgical support bra in place, she is demonstrating appropriate use of her heart hugger. - Gastrointestinal Gastrointestinal Comment(s): Abdomen is soft, nontender and nondistended. Active bowel sounds to all 4 abdominal quadrants. Bowel movement yesterday 02/05/2018. She is tolerating oral intake. - Genitourinary Genitourinary Comment(s): Cordova catheter for accurate I&O. Clear yellow urine. 1065 mL output in the last 8 hours. - Integumentary Integumentary Comment(s): Skin is warm and dry. No clubbing or cyanosis present. Midline sternal incision clean and dry and approximated. No redness or drainage present. Dermabond dressing clean and dry. Right lower leg EVH site clean dry and approximated. No drainage or redness present. Right lower extremity ELICEO drain in place draining thin serosanguineous drainage. 30 mL output in the last 8 hours. - Neurologic Neurologic: Present: CNII-XII intact - Musculoskeletal Musculoskeletal: Present: gait normal, strength equal bilaterally - Psychiatric Psychiatric: Present: A&O x's 3, appropriate affect, intact judgment & insight - Allied health notes Allied health notes reviewed: nursing - Labs CBC & Chem 7: 02/06/18 05:10 02/06/18 05:10 Labs: Abnormal Lab Results - Last 24 Hours (Table) 0402/05/18 02/05/18 Range/Units 12:35 17:42 20:43 WBC (3.8-10.6) k/uL RBC (3.80-5.40) m/uL Hgb (11.4-16.0) gm/dL Hct (34.0-46.0) % RDW (11.5-15.5) % Neutrophils # (1.3-7.7) k/uL Lymphocytes # (1.0-4.8) k/uL Sodium (137-145) mmol/L Chloride (98-107) mmol/L BUN (7-17) mg/dL Creatinine (0.52-1.04) mg/dL Glucose (74-99) mg/dL POC Glucose (mg/dL) 129 H 119 H 142 H (75-99) mg/dL Phosphorus (2.5-4.5) mg/dL Magnesium (1.6-2.3) mg/dL AST (14-36) U/L ALT (9-52) U/L Alkaline Phosphatase (38-126) U/L Total Protein (6.3-8.2) g/dL Albumin (3.5-5.0) g/dL 02/06/18 02/06/18 02/06/18 Range/Units 01:41 05:10 05:10 WBC 13.6 H (3.8-10.6) k/uL RBC 3.18 L (3.80-5.40) m/uL Hgb 9.5 L (11.4-16.0) gm/dL Hct 29.3 L (34.0-46.0) % RDW 17.3 H (11.5-15.5) % Neutrophils # 11.5 H (1.3-7.7) k/uL Lymphocytes # 0.6 L (1.0-4.8) k/uL Sodium 136 L (137-145) mmol/L Chloride 93 L (98-107) mmol/L BUN 71 H (7-17) mg/dL Creatinine 5.70 H* (0.52-1.04) mg/dL Glucose 121 H (74-99) mg/dL POC Glucose (mg/dL) 137 H (75-99) mg/dL Phosphorus 8.8 H* (2.5-4.5) mg/dL Magnesium 4.0 H (1.6-2.3) mg/dL AST 108 H (14-36) U/L ALT 105 H (9-52) U/L Alkaline Phosphatase 151 H (38-126) U/L Total Protein 5.7 L (6.3-8.2) g/dL Albumin 3.3 L (3.5-5.0) g/dL 02/06/18 Range/Units 07:18 WBC (3.8-10.6) k/uL RBC (3.80-5.40) m/uL Hgb (11.4-16.0) gm/dL Hct (34.0-46.0) % RDW (11.5-15.5) % Neutrophils # (1.3-7.7) k/uL Lymphocytes # (1.0-4.8) k/uL Sodium (137-145) mmol/L Chloride (98-107) mmol/L BUN (7-17) mg/dL Creatinine (0.52-1.04) mg/dL Glucose (74-99) mg/dL POC Glucose (mg/dL) 112 H (75-99) mg/dL Phosphorus (2.5-4.5) mg/dL Magnesium (1.6-2.3) mg/dL AST (14-36) U/L ALT (9-52) U/L Alkaline Phosphatase (38-126) U/L Total Protein (6.3-8.2) g/dL Albumin (3.5-5.0) g/dL - Imaging and Cardiology Chest x-ray: report reviewed, image reviewed Assessment and Plan (1) Coronary artery disease Current Visit: Yes Status: Chronic Code(s): I25.10 - ATHSCL HEART DISEASE OF [place] CORONARY ARTERY W/O ANG PCTRS SNOMED Code(s): 49297170 (2) Hypertension Current Visit: Yes Status: Chronic Code(s): I10 - ESSENTIAL (PRIMARY) HYPERTENSION SNOMED Code(s): 88189348 (3) Hyperlipidemia Current Visit: Yes Status: Chronic Code(s): E78.5 - HYPERLIPIDEMIA, UNSPECIFIED SNOMED Code(s): 18629843 (4) Acute exacerbation of congestive heart failure Current Visit: Yes Status: Acute Code(s): I50.9 - HEART FAILURE, UNSPECIFIED SNOMED Code(s): 60689428 (5) Ischemic cardiomyopathy Current Visit: Yes Status: Chronic Code(s): I25.5 - ISCHEMIC CARDIOMYOPATHY SNOMED Code(s): 885394038 (6) Elevated d-dimer Current Visit: Yes Status: Acute Code(s): R79.89 - OTHER SPECIFIED ABNORMAL FINDINGS OF BLOOD CHEMISTRY SNOMED Code(s): 511584035 (7) NSTEMI (non-ST elevated myocardial infarction) Current Visit: Yes Status: Acute Code(s): I21.4 - NON-ST ELEVATION (NSTEMI) MYOCARDIAL INFARCTION SNOMED Code(s): 490809410 Plan: 1. Continue aspirin, Plavix, subcu heparin, beta saw. Metoprolol tartrate was increased to 12.5 mg by mouth twice a day. 2. Lasix was discontinued, managed by nephrology. Avoid nephro toxic medications. 3. Wean oxygen as tolerated. Encourage incentive spirometry use 10 times every hour 4. Continue oral amiodarone 400 mg by mouth twice a day for A. fib prophylaxis. 5. Continue to hold Crestor due to her elevated liver enzymes. Once her liver enzymes have normalized we will restart statin. 6. Will monitor daily labs and chest x-rays. 7. GI/DVT prophylaxis. 8. Increase activity, out of bed to chair, ambulate as tolerated. PT/OT/ cardiac rehab following. 9. Insulin drip/diabetic management per primary care physician. 10. Pulmonary recommendations per Dr. Amador. 11. Discontinue her right leg ELICEO drain today. 12. repeat 2-D echocardiogram on 02/04/2018 showed ischemic cardiomyopathy with ejection fraction of 30-35%. 13. Consult pending for Dr. Carter for possible inpatient rehab placement after discharge. 14. More recommendations to follow based on her clinical course. Time with Patient: Greater than 30
[2018-02-06] MEDS: METOPROLOL TARTRATE 12.5 MG TAB PO SCH ×2 (10:01→22:09)
[2018-02-06] MEDS: CLOPIDOGREL 75 MG TAB PO SCH (10:01)
[2018-02-06] MEDS: PANTOPRAZOLE 40 MG TABLET PO SCH (10:01)
[2018-02-06] MEDS: HEPARIN SODIUM,PORCINE 5,000 UNIT/ML 1 ML VIAL SQ SCH ×3 (10:01→22:45)
[2018-02-06] MEDS: ASPIRIN 325 MG TAB PO SCH (10:01)
--- NOTE | 2018-02-06 10:51 | P.PN ---
Subjective Progress Note Date: 02/06/18 Principal diagnosis: Bypass grafting Progress note dated 01/31/2018 This is a 72-year-old female with multiple medical problems including hypertension hyperlipidemia extrinsic ALLERGIC alveolitis as well as coronary artery disease. The patient's going to the operating room today for a bypass grafting. She's been seen by my partner for the last couple of days. She did have a CT angiogram that was negative for pulmonary embolism. When she was seen yesterday, she was doing well and she was asymptomatic. No chest pain no shortness of breath and difficulty breathing. No coughing or wheezing. Labs were in order. This morning, prior to surgery the patient still doing well. No major issues or problems. 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 Progress note dated 02/01/2018 This is a 72-year-old female who is postop day #1 status post four-vessel bypass grafting. The patient's currently on the mechanical ventilator. Her current vent settings are the assist control mode rate of 24, tidal volume of 400 she is on a FiO2 50% with a PEEP of 5. Arterial blood gases show a PaO2 of 85 a PaCO2 40 and a pH of 7.35. The patient is currently on propofol at 20 mics per kilogram per minute, Primacor at 0.2 mics per kilogram per minute, insulin drip at 2 units per hour, and Cleviprex at 2 mg an hour. The patient's IV is lactated Ringer's at 50 mL an hour. According to cardiothoracic early childhood assistant , the patient can be weaned at this time. Chest x-ray show some mild fluid overload. The patient otherwise is stable. Even on a small amount of propofol , her mental status is reasonable. We'll wean that off and start the process. She has a history of non-ST segment elevation myocardial infarction, severe triple-vessel coronary artery disease, ischemic cardiomyopathy, systolic heart failure, hypertension, hyperlipidemia, extrinsic ALLERGIC alveolitis and COPD from previous heavy tobacco use. Progress note dated 02/02/2018 72-year-old female postop day #2, status post four-vessel bypass grafting. She was extubated yesterday on [place] 10. Currently, she is on a nonrebreather mask. In addition, she is on dopamine at 2 mcg/kg/m, a Lasix drip at 10 mg an hour, amiodarone at 0.5 mg/m and lactated Ringer's at 20 mL an hour. Chest x- ray shows just some mild fluid overload. The patient otherwise looks relatively weak. The patient seemed a little sleepy and lethargic. Does not really take in deep breaths. Chest x-ray though does not look horrible. 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 The patient's oxygen requirements have gone up since extubation, initially she was on 6 L by nasal cannula and is now on a nonrebreather. She may benefit from BiPAP therapy to help rest her. Progress note dated 02/06/2018 72-year-old female postop day #6, status post four-vessel bypass grafting. She was extubated on February 01. She's doing well. She's on O2 at 3 L. Not receiving any IV fluids. She has had on-and-off atrial fibrillation. Feels much better. She does have a history of previous non-ST segment elevation myocardial infarction, severe triple-vessel coronary artery disease, ischemic cardiomyopathy, systolic heart failure, hypertension, hyperlipidemia, extrinsic ALLERGIC alveolitis, and COPD. The patient is doing well. Probably from the pulmonary perspective could be discharged out of the unit. We'll wait and see what cardiothoracic has to say. She's doing pretty well recently on her incentive spirometer. Objective - Vital Signs Vital signs: Vital Signs Temp 98.2 F 02/06/18 00:00 Pulse 117 H 02/06/18 08:10 Resp 15 02/06/18 07:00 BP 95/65 02/06/18 07:00 Pulse Ox 97 02/06/18 07:00 Intake & Output 02/05/18 02/06/18 02/06/18 18:59 06:59 18:59 Intake Total 1084.0 276 403 Output Total 1615 1685 180 Balance -531.0 -1409 223 Weight 84.1 kg Intake: IV 84.0 36 3 Lactated Ringers 1,000 ml 37.5 @ 10 mls/hr IV .Q24H [facility] Rx#:[id number] pressure bag 46.5 36 3 Oral 1000 240 400 Output: Drainage 40 30 Right Calf 40 30 Urine 1575 1685 150 Other: Voiding Method Indwelling Catheter Indwelling Catheter # Bowel Movements 1 ABP, PAP, CO, CI - Last Documented Arterial Blood Pressure 116/60 Pulmonary Artery Pressure 51/26 Cardiac Output 5.4 Cardiac Index 3.0 - Exam No acute distress, on nasal O2 at 3 L.. HEENT examination is grossly unremarkable. Mucous membranes are moist. Neck supple. Full range of motion. No adenopathy thyromegaly or neck vein distention. Cardiovascular examination reveals regular rhythm rate. S1-S2 normal. No S3 or S4. No discernible murmur noted. Lungs reveal diffuse bilateral rhonchi. Breath sounds are equal bilaterally. No wheezes. No crackles. Abdomen soft bowel sounds are heard. No masses or tenderness. Extremities are intact. No cyanosis clubbing or edema. Skin is without rash or lesion. Neurologic examination appears to be relatively normal. - Labs CBC & Chem 7: 02/06/18 05:10 02/06/18 05:10 Labs: Abnormal Lab Results - Last 24 Hours (Table) 02/05/18 02/05/18 02/05/18 Range/Units 12:35 17:42 20:43 WBC (3.8-10.6) k/uL RBC (3.80-5.40) m/uL Hgb (11.4-16.0) gm/dL Hct (34.0-46.0) % RDW (11.5-15.5) % Neutrophils # (1.3-7.7) k/uL Lymphocytes # (1.0-4.8) k/uL Sodium (137-145) mmol/L Chloride (98-107) mmol/L BUN (7-17) mg/dL Creatinine (0.52-1.04) mg/dL Glucose (74-99) mg/dL POC Glucose (mg/dL) 129 H 119 H 142 H (75-99) mg/dL Phosphorus (2.5-4.5) mg/dL Magnesium (1.6-2.3) mg/dL AST (14-36) U/L ALT (9-52) U/L Alkaline Phosphatase (38-126) U/L Total Protein (6.3-8.2) g/dL Albumin (3.5-5.0) g/dL 02/06/18 02/06/18 02/06/18 Range/Units 01:41 05:10 05:10 WBC 13.6 H (3.8-10.6) k/uL RBC 3.18 L (3.80-5.40) m/uL Hgb 9.5 L (11.4-16.0) gm/dL Hct 29.3 L (34.0-46.0) % RDW 17.3 H (11.5-15.5) % Neutrophils # 11.5 H (1.3-7.7) k/uL Lymphocytes # 0.6 L (1.0-4.8) k/uL Sodium 136 L (137-145) mmol/L Chloride 93 L (98-107) mmol/L BUN 71 H (7-17) mg/dL Creatinine 5.70 H* (0.52-1.04) mg/dL Glucose 121 H (74-99) mg/dL POC Glucose (mg/dL) 137 H (75-99) mg/dL Phosphorus 8.8 H* (2.5-4.5) mg/dL Magnesium 4.0 H (1.6-2.3) mg/dL AST 108 H (14-36) U/L ALT 105 H (9-52) U/L Alkaline Phosphatase 151 H (38-126) U/L Total Protein 5.7 L (6.3-8.2) g/dL Albumin 3.3 L (3.5-5.0) g/dL 02/06/18 Range/Units 07:18 WBC (3.8-10.6) k/uL RBC (3.80-5.40) m/uL Hgb (11.4-16.0) gm/dL Hct (34.0-46.0) % RDW (11.5-15.5) % Neutrophils # (1.3-7.7) k/uL Lymphocytes # (1.0-4.8) k/uL Sodium (137-145) mmol/L Chloride (98-107) mmol/L BUN (7-17) mg/dL Creatinine (0.52-1.04) mg/dL Glucose (74-99) mg/dL POC Glucose (mg/dL) 112 H (75-99) mg/dL Phosphorus (2.5-4.5) mg/dL Magnesium (1.6-2.3) mg/dL AST (14-36) U/L ALT (9-52) U/L Alkaline Phosphatase (38-126) U/L Total Protein (6.3-8.2) g/dL Albumin (3.5-5.0) g/dL Assessment and Plan Assessment: Severe triple-vessel coronary disease Postop day #6, status post four-vessel bypass grafting. Postoperative respiratory failure, with extubation on February 01. Acute non-ST segment elevation myocardial infarction Severe ischemic cardiomyopathy Systolic congestive heart failure Benign essential hypertension Hyperlipidemia Extrinsic ALLERGIC alveolitis Mild COPD Previous tobacco history Plan: Plan dated 01/31/2018 The patient after surgery for mechanical ventilation management. The patient otherwise is doing well. She likely will do well. Additional recommendations are made. The patient will be placed on updrafts after surgery. Typically will use DuoNeb every 4 hours around the clock. We'll continue to follow. Plan dated 02/01/2018 Start working on weaning the patient. The FiO2 has been weaned down to 50% and PEEP is at 5. Arterial blood gases are reasonable. The patient still on a bit of propofol. That will be weaned off. She also remains on Primacor, insulin, and Cleviprex. Additional recommendations and suggestions are forthcoming. Prognosis is guarded. Critical care time is 33 minutes Plan dated 02/02/2018 The patient is on a number of different medications at this time including dopamine, Lasix, and amiodarone. She is also receiving nonrebreather mask. Might attempt some BiPAP later today. Additional recommendations and suggestions are forthcoming. The patient's chest x-ray though, does not look horrible. Critical care time 31 minutes Plan dated 02/06/2018 The patient is doing well. The patient's only receiving O2 2 L. The patient is not receiving any IV fluids. We'll continue to press importance of deep breathing coughing and clearing her secretions. We'll also continue the incentive spirometry and breathing treatments. Additional recommendations and suggestions are forthcoming. We'll Continue to watch her closely here in the ICU. Critical care time 31 minutes Time with Patient: Greater than 30
[2018-02-06] MEDS ORDERED: DEXTROSE 5% IN WATER 100 ML with AMIODARONE 150 MG IV ONE (11:40)
[2018-02-06 12:30] LABS: Glucose,Whole Blood 116 mg/dL (75-99)
[2018-02-06] MEDS: CALCIUM ACETATE 667 MG CAP PO SCH ×2 (13:04→17:20)
[2018-02-06 14:57] LABS: INR 1.2 (<1.2); Prothrombin Time 11.7 sec (9.0-12.0)
[2018-02-06 17:20] LABS: Glucose,Whole Blood 94 mg/dL (75-99)
[2018-02-06] MEDS: WARFARIN 5 MG TAB PO ONE (17:20)
[2018-02-06 19:54] LABS: Glucose,Whole Blood 121 mg/dL (75-99)
[2018-02-06] MEDS: SENNOSIDES-DOCUSATE SODIUM 1 EACH TAB PO SCH (20:13)
--- NOTE | 2018-02-06 23:06 | P.PN ---
Subjective Progress Note Date: 02/06/18 Principal diagnosis: Status post cardiac catheterization. Triple-vessel disease This is a pleasant 73-year-old female patient with a past medical history significant for hypertension and dyslipidemia with no documented history of coronary artery disease or congestive heart failure presented to the hospital complaining of shortness of breath for the last 3 weeks. The patient stated that the shortness of breath was started about 3 weeks ago. Beside that she describes epigastric discomfort. She stated she developed bilateral lower extremities edema and she was seen by her primary care physician who put her on Lasix with improvement in the edema. The patient did not have any symptoms of chest pain or discomfort, dizziness or lightheadedness , or any syncope. She does have epigastric discomfort mainly. The EKG showed sinus rhythm with nonspecific changes in the inferior leads. There was also some ST and T wave abnormalities seems to be diffuse. Beside that the d-dimer came in to be abnormal and the patient is in process to have a CTA of the chest to rule out any PE. The BNP came in to be also severely abnormal and the patient was given Lasix IV in the emergency room. The first set of troponin also came in to be slightly abnormal. The patient underwent an emergent heart catheterization and that revealed severe triple-vessel coronary artery disease. She was seen and evaluated by cardiothoracic surgeon and the plan is to proceed with CABG this coming Wednesday. 01/28/2018 Patient seen and examined at bedside in ICU; family members at bedside; she denies any chest pain or shortness of breath; patient is continued on aspirin, metoprolol, Lasix and Aldactone; statins and lisinopril has been continued; echocardiogram showed impaired left ventricular function with ejection fraction of 25-30% 01/29/2018 Patient remains in ICU; sitting up in a chair and denies any chest pain or shortness of breath; overall patient seems to be doing better 01/30/2018 Patient remains in ICU and remains chest pain-free; patient relates that her swelling in both lower extremities is improved; she remains on Lasix and Aldactone Patient is scheduled for CABG in the morning 01/31/2018 Patient underwent quadruple bypass graft today currently intubated postoperatively. Pulmonary and CT surgery is following. Chest x-ray showed left lower lung atelectasis and possible postoperative changes. 02/01/2018 Patient is status post quadruple bypass graft. Patient was successfully weaned off of ventilator. Next and chest x-ray showed mild fluid overload. Otherwise patient is awake alert and lying in the bed comfortable.. Patient went to atrial fibrillation and was started on amiodarone. No fever no chills. No chest pain or worsening shortness of breath. Complete review of systems could not be apparent from the patient. 02/02/2018 Patient is more awake and alert today. Able to also simple questions. Currently converted back to sinus rhythm. Amiodarone has been changed to oral. Patient is on dopamine drip at low-dose. Continued on IV Lasix drip. Patient is being converted on aspirin, Plavix and statins. Cardiology and pulmonary is following. No fever no chills. Patient denied any worsening shortness of breath or chest pain. 02/03/2018 Patient is awake and oriented able to sit in the chair and is improving clinically and patient is maintained on Lasix drip. Off pressors support. No other acute overnight issues. Cardiology and pulmonary is following. Clinically improving. 02/04/2018 Patient is currently sitting in the chair. Part spreading in physical therapy. Still on IV Lasix and her leg swelling is improving otherwise. BUN 50 creatinine 4.7 Chest x-ray showed interval al of left pleural chest tube. Pulmonary venous hypertension and interstitial edema . Tolerating oral diet. Crestor is on hold due to elevated laryngitis which are trending down now. No complaints of chest pain. No worsening shortness of breath. No nausea vomiting or abdominal pain. 02/05/2018 Patient currently sitting in the chair comfortably. No complaints of chest pain or worsening shortness of breath. Otherwise symptomatically much improved now. Participating in physical therapy. Chest x-ray showed postoperative changes with left basilar air space disease and small bilateral pleural effusions. Patient is being continued on IV Lasix now. BUN 60 creatinine 5.6. Amiodarone has been changed to metoprolol low-dose. Patient is being followed by cardiology and nephrology and pulmonary. 02/06/2018 Patient is sitting in the chair comfortably. No fever no chills. Tolerating oral diet. Leg swelling is much improved now. Patient is being continued on Lasix otherwise. Creatinine level increased to 5.7 due to ATN. Otherwise continue on amiodarone and metoprolol. Remain on sinus rhythm. Cardiology and pulmonary is following. No other acute overnight issues. Participating in physical therapy. All other review of systems negative except the above Active Medications Generic Name Dose Route Start Last Admin Trade Name Freq PRN Reason Stop Dose Admin Hydrocodone Bitart/Acetaminophen 2 each 02/01/18 14:36 02/05/18 21:58 [place] 5-325 PO 1 each Q4HR PRN Administration Severe Pain Hydrocodone Bitart/Acetaminophen 1 each 02/01/18 14:36 02/04/18 02:41 [place] 5-325 PO 1 each Q4HR PRN Administration Moderate Pain Albuterol/Ipratropium 3 ml 02/01/18 14:37 Duoneb 0.5 Mg-3 Mg/3 Ml Soln INHALATION RT-Q2H PRN Shortness Of Breath Or Wheezing Albuterol/Ipratropium 3 ml 02/01/18 14:37 02/05/18 20:15 Duoneb 0.5 Mg-3 Mg/3 Ml Soln INHALATION 3 ml RT-QID ERIN Administration Amiodarone HCl 400 mg 02/03/18 21:00 02/05/18 20:55 Cordarone PO 400 mg BID ERIN Administration Aspirin 325 mg 02/01/18 09:00 02/05/18 08:03 Aspirin PO 325 mg DAILY ERIN Administration Benzocaine/Menthol 1 each 01/31/18 14:43 Cepacol Lozenge MUCOUS MEM Q2H PRN Sore Throat Bisacodyl 10 mg 02/01/18 14:36 Dulcolax RECTAL DAILY PRN Constipation Budesonide/Formoterol Fumarate 2 puff 02/04/18 08:54 02/05/18 20:15 Symbicort 160-4.5 Mcg Inhaler INHALATION 2 puff RT-BID ERIN Administration Calcium Acetate 667 mg 02/04/18 12:30 02/05/18 18:55 Phoslo PO 667 mg BID@1230,1730 ERIN Administration Clopidogrel Bisulfate 75 mg 02/01/18 09:00 02/05/18 08:03 Plavix PO 75 mg DAILY ERIN Administration Furosemide 40 mg 02/05/18 09:30 02/05/18 20:56 Lasix IV 40 mg Q12HR ERIN Administration Heparin Sodium (Porcine) 5,000 unit 02/01/18 00:00 02/05/18 23:58 Heparin SQ 5,000 unit Q8HR ERIN Administration Norepinephrine Bitartrate 16 mg in 250 mls @ 0 mls/hr 02/02/18 11:30 21:30 Levophed-0.9% Nacl 16 Mg/250ml Pmx IV 0 mcg/min .Q0M ERIN 0 mls/hr Protocol Titration Titrate Insulin Aspart 0 unit 02/01/18 17:30 02/05/18 21:08 Novolog SQ 1 unit [id number] ERIN Administration Protocol Magnesium Hydroxide 2,400 mg 02/01/18 14:36 02/05/18 15:36 Milk Of Magnesia PO 2,400 mg BID PRN Administration Constipation Metoclopramide HCl 10 mg 01/31/18 14:43 Reglan IVP Q4H PRN Nausea And Vomiting Metoprolol Tartrate 6.25 mg 02/04/18 10:02 02/05/18 20:56 Lopressor PO 6.25 mg BID ERIN Administration Miscellaneous Information 1 each 01/31/18 14:43 Magnesium Per Protocol MISCELLANE DAILY PRN Per Protocol Protocol Miscellaneous Information 1 each 01/31/18 14:43 Phosphorus Per Protocol MISCELLANE DAILY PRN Per Protocol Protocol Miscellaneous Information 1 each 01/31/18 14:43 Potassium Per Protocol MISCELLANE DAILY PRN Per Protocol Protocol Ondansetron HCl 4 mg 01/31/18 14:43 02/02/18 07:58 Zofran IVP 4 mg Q6HR PRN Administration Nausea And Vomiting Pantoprazole Sodium 40 mg 02/03/18 07:30 02/05/18 08:03 Protonix PO 40 mg [id number] ERIN Administration Senna/Docusate Sodium 2 each 02/01/18 21:00 02/05/18 20:57 Senokot-S PO 2 each HS ERIN Administration Sodium Chloride 10 ml 01/31/18 21:00 02/05/18 20:57 Saline Flush IV 10 ml BID ERIN Administration Objective - Vital Signs Vital signs: Vital Signs Temp 98.2 F 02/06/18 08:00 Pulse 77 02/06/18 12:15 Resp 20 02/06/18 11:00 BP 102/58 02/06/18 11:00 Pulse Ox 95 02/06/18 11:00 Intake & Output 02/05/18 02/06/18 02/06/18 18:59 06:59 18:59 Intake Total 1084.0 276 1024 Output Total 1615 1685 810 Balance -531.0 -1409 214 Weight 84.1 kg Intake: IV 84.0 36 24 Lactated Ringers 1,000 ml 37.5 @ 10 mls/hr IV .Q24H [facility] Rx#:[id number] pressure bag 46.5 36 24 Oral 1703 737 [id number] Output: Drainage 40 60 Right Calf 40 60 Urine 1575 1685 750 Other: Voiding Method Indwelling Catheter Indwelling Catheter # Bowel Movements 1 ABP, PAP, CO, CI - Last Documented Arterial Blood Pressure 105/69 Pulmonary Artery Pressure 51/26 Cardiac Output 5.4 Cardiac Index 3.0 - Exam PHYSICAL EXAMINATION: Patient is lying in the bed comfortably, no acute distress, awake alert and oriented HEENT: Normocephalic. Neck is supple. Pupils reactive. Nostrils clear. Oral cavity is moist. Ears reveal no drainage. Neck reveals no JVD, carotid bruits, or thyromegaly. CHEST EXAMINATION: Sternal wound is bandaged. Trachea is central. Symmetrical expansion. Bibasilar minimal crackles. No wheezing CARDIAC: Normal S1, S2 with no gallops. No murmurs ABDOMEN: Soft. Bowel sounds normal. No organomegaly. No abdominal bruits. Extremities: reveal 2+ edema. No clubbing or cyanosis Neurologically awake alert and oriented 3. No focal deficits noted Skin: No rash or skin lesions. Psychiatric: Cooperative. Nonsuicidal Musculoskeletal: No joint swelling or deformity. Normal range of motion. - Labs CBC & Chem 7: 02/06/18 05:10 02/06/18 05:10 Labs: Abnormal Lab Results - Last 24 Hours (Table) 02/05/18 02/05/18 02/06/18 Range/Units 17:42 20:43 01:41 WBC (3.8-10.6) k/uL RBC (3.80-5.40) m/uL Hgb (11.4-16.0) gm/dL Hct (34.0-46.0) % RDW (11.5-15.5) % Neutrophils # (1.3-7.7) k/uL Lymphocytes # (1.0-4.8) k/uL INR (<1.2) Sodium (137-145) mmol/L Chloride (98-107) mmol/L BUN (7-17) mg/dL Creatinine (0.52-1.04) mg/dL Glucose (74-99) mg/dL POC Glucose (mg/dL) 119 H 142 H 137 H (75-99) mg/dL Phosphorus (2.5-4.5) mg/dL Magnesium (1.6-2.3) mg/dL AST (14-36) U/L ALT (9-52) U/L Alkaline Phosphatase (38-126) U/L Total Protein (6.3-8.2) g/dL Albumin (3.5-5.0) g/dL 02/06/18 02/06/18 02/06/18 Range/Units 05:10 05:10 07:18 WBC 13.6 H (3.8-10.6) k/uL RBC 3.18 L (3.80-5.40) m/uL Hgb 9.5 L (11.4-16.0) gm/dL Hct 29.3 L (34.0-46.0) % RDW 17.3 H (11.5-15.5) % Neutrophils # 11.5 H (1.3-7.7) k/uL Lymphocytes # 0.6 L (1.0-4.8) k/uL INR (<1.2) Sodium 136 L (137-145) mmol/L Chloride 93 L (98-107) mmol/L BUN 71 H (7-17) mg/dL Creatinine 5.70 H* (0.52-1.04) mg/dL Glucose 121 H (74-99) mg/dL POC Glucose (mg/dL) 112 H (75-99) mg/dL Phosphorus 8.8 H* (2.5-4.5) mg/dL Magnesium 4.0 H (1.6-2.3) mg/dL AST 108 H (14-36) U/L ALT 105 H (9-52) U/L Alkaline Phosphatase 151 H (38-126) U/L Total Protein 5.7 L (6.3-8.2) g/dL Albumin 3.3 L (3.5-5.0) g/dL 02/06/18 02/06/18 Range/Units 12:28 14:29 WBC (3.8-10.6) k/uL RBC (3.80-5.40) m/uL Hgb (11.4-16.0) gm/dL Hct (34.0-46.0) % RDW (11.5-15.5) % Neutrophils # (1.3-7.7) k/uL Lymphocytes # (1.0-4.8) k/uL INR 1.2 H (<1.2) Sodium (137-145) mmol/L Chloride (98-107) mmol/L BUN (7-17) mg/dL Creatinine (0.52-1.04) mg/dL Glucose (74-99) mg/dL POC Glucose (mg/dL) 116 H (75-99) mg/dL Phosphorus (2.5-4.5) mg/dL Magnesium (1.6-2.3) mg/dL AST (14-36) U/L ALT (9-52) U/L Alkaline Phosphatase (38-126) U/L Total Protein (6.3-8.2) g/dL Albumin (3.5-5.0) g/dL Assessment and Plan Assessment: Acute non-ST elevated VT. Status post Cardiac catheterization showed triple- vessel disease. Status post quadruple bypass graft on 01/31/2018 Atrial fibrillation with rapid ventricular rate. Currently on low-dose metoprolol and amiodarone Acute kidney injury due to ATN with worsening creatinine level Exertional shortness of breath for 2 weeks prior to admission Acute CHF with systolic dysfunction Severe ischemic cardio myopathy Leukocytosis. Likely reactive. Hypertension hyperlipidemia Obesity DVT prophylaxis Plan: Continue with the aspirin statins and metoprolol and lisinopril and metoprolol. Continue with Lasix drip, changed to Lasix IV twice a day. Cardiology and cardiac surgery is following. PT OT is following. Patient is tolerating oral diet otherwise. We'll continue to monitor renal function. Follow-up CBC and BMP tomorrow. Continue to monitor the patient in ICU. Further recommendations based on the clinical course. Time with Patient: Greater than 30
[2018-02-07] MEDS: INSULIN ASPART 100 UNIT/ML 1 ML 10 ML VIAL SQ SCH ×5 (03:03→21:39)
[2018-02-07] MEDS: HYDROcodone/APAP 5-325MG 1 EACH TAB PO PRN ×2 (03:03→07:49)
[2018-02-07 04:02] LABS: Anisocytosis Slight; Basophils # (A) 0.1 k/uL (0-0.2); Basophils % (A) 0 %; Eosinophils # (A) 0.5 k/uL (0-0.7); Eosinophils % (A) 4 %; HCT 27.3 % (34.0-46.0); HGB 8.7 gm/dL (11.4-16.0); Lymphocytes # (A) 0.7 k/uL (1.0-4.8); Lymphocytes % (A) 6 %; MCH 29.6 pg (25.0-35.0); MCV 92.5 fL (80.0-100.0); Mean Platelet Volume 8.3; Monocytes # (A) 0.8 k/uL (0-1.0); Monocytes % (A) 7 %; Neutrophils # (A) 9.8 k/uL (1.3-7.7); Neutrophils % (A) 81 %; Platelet Count 180 k/uL (150-450); RBC 2.95 m/uL (3.80-5.40); RDW 17.2 % (11.5-15.5); WBC 12.1 k/uL (3.8-10.6)
[2018-02-07 04:10] LABS: INR 1.2 (<1.2); Prothrombin Time 11.5 sec (9.0-12.0)
[2018-02-07 04:17] LABS: Albumin 3.1 g/dL (3.5-5.0); Calcium 9.8 mg/dL (8.4-10.2); Magnesium 3.4 mg/dL (1.6-2.3); Phosphorus 7.8 mg/dL (2.5-4.5); Total Bilirubin 0.7 mg/dL (0.2-1.3); Total Protein 5.5 g/dL (6.3-8.2)
--- NOTE | 2018-02-07 06:29 | P.CONS ---
History of Present Illness - Chief Complaint Cardiac debility - History of Present Illness I had the op to see patient for inpatient rehab consultation with regard to cardiac debility. She was admitted to [facility] January 27 with shortness of breath. Seen by Dr. Cook for known cardiac disease and non-STEMI. Seen by Dr. Park for pulmonary and ICU management. On February 03 underwent CABG three- vessel, Dr. Mendez. Chest x-rays followed and no postoperative change. PT reports two-person maximal assistance for bed mobility and sitting. Moderate assistance for gait 100 feet, hand-held assist. OT prescribed. Previous functional history as elicited from sister: 78-year-old right-handed white female who is lives in one floor home, alone. Retired. Independent with cooking, laundry, driving, standing shower and gait with standard cane. Doesn't smoke or drink. Dr. Agrawal is regular doctor. Family medical history both parents with NC. Review of Systems Review of systems: ENT: Denies sneezes or discharge. Eyes: Denies discharge or photophobia. Cardiac: Denies chest pain or palpitation. Some sternal discomfort. Pulmonary: Mild to moderate shortness of breath. Breast: Denies discharge or lumps. Gastrointestinal: Denies nausea, emesis, constipation, diarrhea. Genitourinary: Denies discharge or frequency. Musculoskeletal: Denies muscle or bone aches. Neurologic: Generalized weakness. Endocrine: Denies shakes or sweats. Oncology: Denies cancers. Dermatologic: Denies rash, itching, pruritus. ALLERGY/immunology: Denies sneezes, rashes. 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 History of Any Multi-Drug Resistant Organisms: None Reported Additional Past Surgical History / Comment(s): "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, D&C-vaginal polyps. Past Anesthesia/Blood Transfusion Reactions: No Reported Reaction Past Psychological History: No Psychological Hx Reported Smoking Status: Former smoker (Quit 30 years ago.) Past Alcohol Use History: None Reported, Rare Past Drug Use History: None Reported - Past Family History Mother Family Medical History: Myocardial Infarction (NC) ( from myocardial infarction at age 69.) Father Family Medical History: Myocardial Infarction (NC) ( from a pericardial infarction at age 69) Brother(s) Family Medical History: Neurologic Disorder (Multiple sclerosis) Sister(s) Family Medical History: Cancer (Breast and uterine), Myocardial Infarction (NC) (At age 68) Medications and Allergies Home Medications Medication Instructions Recorded Confirmed Type Bisoprolol-Hctz 10-6.25 mg [Ziac 1 tab PO PC-SUPPER 01/20/15 01/27/18 History 10-6.25 MG] Albuterol Nebulized [Ventolin 2.5 mg INHALATION RT-TID 01/27/18 01/27/18 History Nebulized] Fluticasone/Vilanterol [Breo 1 inhalation PO RT-DAILY 01/27/18 01/27/18 History Ellipta 100-25 Mcg Inhaler] Allergies Allergy/AdvReac Type Severity Reaction Status Date / Time atorvastatin calcium Allergy Swelling Verified 01/27/18 10:34 [From Lipitor] benazepril Allergy irregular Verified 01/27/18 10:34 heart rate amlodipine AdvReac muscle Verified 01/27/18 10:34 cramps Physical Exam Vitals: Vital Signs Temp Pulse Resp BP Pulse Ox 02/07/18 05:00 68 21 104/54 93 L 02/07/18 04:00 69 22 111/52 95 02/07/18 03:00 73 20 110/53 94 L 02/07/18 02:00 74 18 115/68 93 L 02/07/18 01:00 72 20 101/50 93 L 02/07/18 00:00 74 23 114/57 94 L 02/06/18 23:32 73 20 84/39 91 L 02/06/18 23:00 75 21 84/39 92 L 02/06/18 22:00 77 19 119/60 92 L 02/06/18 21:00 111 H 22 113/65 92 L 02/06/18 20:29 132 H 02/06/18 20:18 113 H 02/06/18 20:00 98.7 F 76 18 102/55 89 L 02/06/18 19:00 75 20 103/53 90 L 02/06/18 18:00 73 25 H 104/50 92 L 02/06/18 17:00 98.1 F 71 17 102/53 91 L 02/06/18 16:15 75 02/06/18 16:01 68 02/06/18 16:00 68 22 97/44 92 L 02/06/18 15:00 69 20 93/48 96 02/06/18 14:00 68 33 H 90/49 97 02/06/18 13:00 73 18 93/50 95 02/06/18 12:15 77 02/06/18 12:10 73 02/06/18 12:00 66 17 97/55 95 02/06/18 11:00 126 H 20 102/58 95 02/06/18 10:00 125 H 30 H 98/64 95 02/06/18 09:00 126 H 20 95/49 93 L 02/06/18 08:10 117 H 02/06/18 08:00 98.2 F 121 H 21 96/60 99 02/06/18 07:58 111 H 02/06/18 07:00 119 H 15 95/65 97 Intake and Output 02/06/18 02/06/18 02/07/18 14:59 22:59 06:59 Intake Total 1024 541.5 400 Output Total 810 490 600 Balance 214 51.5 -200 Intake: IV 24 1.5 pressure bag 24 1.5 Oral 1000 540 400 Output: Drainage 60 Right Calf 60 Urine 750 490 600 Other: Voiding Method Indwelling Catheter Indwelling Catheter Indwelling Catheter Weight 79.5 kg Skin: Good color, texture, turgor. General: Medium build and comfortable appearance. Wearing oxygen mask. Head: Normocephalic, atraumatic. Eyes: Symmetric. Pupils equal round. Ears: Symmetric. Hearing within normal limits. Mouth: Clear. Neck: Supple. Carotid without bruit. Cardiac: Regular rate and rhythm, distant. Wearing heart hugger. Lungs: Clear anteriorly and posteriorly. Abdomen: Soft active nontender. Extremities: Normal tone. Neurological: Mental status: Alert, cooperative, pleasant. Cranial nerves: Symmetric facial tone and trapezius. Motor: Can actively elevate all limbs and demonstrates isolation distally. Sensation: Intact throughout. DTRs: Symmetric and equal throughout. Mobility: Would require physical assistance for bed mobility. X-ray in for chest x-ray. Results CBC & Chem 7: 02/07/18 03:23 04/16/18 03:23 Labs: Abnormal Lab Results - Last 24 Hours (Table) 02/06/18 02/06/18 02/06/18 Range/Units 07:18 12:28 14:29 WBC (3.8-10.6) k/uL RBC (3.80-5.40) m/uL Hgb (11.4-16.0) gm/dL Hct (34.0-46.0) % RDW (11.5-15.5) % Neutrophils # (1.3-7.7) k/uL Lymphocytes # (1.0-4.8) k/uL INR 1.2 H (<1.2) Sodium (137-145) mmol/L Chloride (98-107) mmol/L BUN (7-17) mg/dL Creatinine (0.52-1.04) mg/dL Glucose (74-99) mg/dL POC Glucose (mg/dL) 112 H 116 H (75-99) mg/dL Phosphorus (2.5-4.5) mg/dL Magnesium (1.6-2.3) mg/dL AST (14-36) U/L ALT (9-52) U/L Alkaline Phosphatase (38-126) U/L Total Protein (6.3-8.2) g/dL Albumin (3.5-5.0) g/dL 02/06/18 02/07/18 02/07/18 Range/Units 19:53 03:23 03:23 WBC 12.1 H (3.8-10.6) k/uL RBC 2.95 L (3.80-5.40) m/uL Hgb 8.7 L (11.4-16.0) gm/dL Hct 27.3 L (34.0-46.0) % RDW 17.2 H (11.5-15.5) % Neutrophils # 9.8 H (1.3-7.7) k/uL Lymphocytes # 0.7 L (1.0-4.8) k/uL INR (<1.2) Sodium 135 L (137-145) mmol/L Chloride 90 L (98-107) mmol/L BUN 80 H* (7-17) mg/dL Creatinine 5.57 H* (0.52-1.04) mg/dL Glucose 100 H (74-99) mg/dL POC Glucose (mg/dL) 121 H (75-99) mg/dL Phosphorus 7.8 H (2.5-4.5) mg/dL Magnesium 3.4 H (1.6-2.3) mg/dL AST 63 H (14-36) U/L ALT 73 H (9-52) U/L Alkaline Phosphatase 127 H (38-126) U/L Total Protein 5.5 L (6.3-8.2) g/dL Albumin 3.1 L (3.5-5.0) g/dL 02/07/18 Range/Units 03:23 WBC (3.8-10.6) k/uL RBC (3.80-5.40) m/uL Hgb (11.4-16.0) gm/dL Hct (34.0-46.0) % RDW (11.5-15.5) % Neutrophils # (1.3-7.7) k/uL Lymphocytes # (1.0-4.8) k/uL INR 1.2 H (<1.2) Sodium (137-145) mmol/L Chloride (98-107) mmol/L BUN (7-17) mg/dL Creatinine (0.52-1.04) mg/dL Glucose (74-99) mg/dL POC Glucose (mg/dL) (75-99) mg/dL Phosphorus (2.5-4.5) mg/dL Magnesium (1.6-2.3) mg/dL AST (14-36) U/L ALT (9-52) U/L Alkaline Phosphatase (38-126) U/L Total Protein (6.3-8.2) g/dL Albumin (3.5-5.0) g/dL Chest x-ray: report reviewed (Chest x-rays followed and note postoperative change and airspace disease.) Assessment and Plan (1) NSTEMI (non-ST elevated myocardial infarction) Current Visit: Yes Status: Acute Code(s): I21.4 - NON-ST ELEVATION (NSTEMI) MYOCARDIAL INFARCTION SNOMED Code(s): 939697220 Plan: Impression: 1. Cardiac debility. 2. Coronary disease with history of non-STEMI and recent three-vessel CABG. 4. Congestive heart failure. 4. Hypertension. 5. Dyslipidemia. Comments and plan: PT ongoing and OT prescribed. Follow therapies with yourself.
[2018-02-07 07:03] LABS: Glucose,Whole Blood 107 mg/dL (75-99)
--- NOTE | 2018-02-07 07:34 | XR ---
EXAMINATION TYPE: XR chest 1V portable DATE OF EXAM: 02/07/2018 COMPARISON: Prior chest 02/06/2018 HISTORY: Postop coronary artery bypass graft TECHNIQUE: Single frontal view of the chest is obtained. FINDINGS: Heart remains enlarged, patient is post median sternotomy. No evident pneumothorax. Bibasi lar increased density persists. There are overlying cardiac leads. Patient is rotated. Interstitium a nd central vascularity are similar. IMPRESSION: Probable basilar atelectasis, there may be small effusions, correlate to exclude pneumon ia versus edema, there may be component of volume overload, pulmonary venous hypertension and interst itial edema. Follow-up recommended.
[2018-02-07] MEDS: IPRATROPIUM-ALBUTEROL 3 ML NEB INHALATION SCH ×4 (07:35→20:19)
[2018-02-07] MEDS: SYMBICORT 160-4.5 MCG INHALER INHALATION SCH ×2 (07:36→20:20)
[2018-02-07] MEDS: PANTOPRAZOLE 40 MG TABLET PO SCH (07:49)
[2018-02-07] MEDS: HEPARIN SODIUM,PORCINE 5,000 UNIT/ML 1 ML VIAL SQ SCH ×2 (07:50→18:17)
[2018-02-07] MEDS: AMIODARONE 200 MG TAB PO SCH ×2 (08:43→22:54)
--- NOTE | 2018-02-07 08:43 | PN ---
PROGRESS NOTE Mrs. Cutler is a 72-year-old female with history of severe coronary artery disease as well as ischemic cardiomyopathy who has underwent coronary artery bypass grafting. She is awake, alert, is sitting up in a chair, feeling better. Hemodynamically, she is stable. She is in sinus mechanism. She continues to have episodes of paroxysmal atrial fibrillation. Her urine output is stable. She denies any chest pain. No dizziness. Her nausea and bloating are better. She had a bowel movement. She continues to be at this time on amiodarone 400 mg twice a day, aspirin once a day, Plavix 75 mg daily, metoprolol tartrate 12.5 mg twice a day. PHYSICAL EXAMINATION: Blood pressure 107/57 with the heart rate in the 60s. LUNGS: With few crackles at the bases. No wheezes. HEART: Regular rate and rhythm. S1, S2. No S3, no rub with a systolic murmur. ABDOMEN: Soft, nontender. EXTREMITIES: No significant edema. LAB DATA: Lab data revealed BUN and creatinine of 80 and 5.57, which her creatinine is better compared to yesterday. Her potassium 4.0. Her AST 63, ALT 73. Her hemoglobin is 8.7. IMPRESSION: 1. Status post coronary artery bypass grafting. 2. Ischemic cardiomyopathy. 3. Paroxysmal atrial fibrillation. 4. Renal failure, stabilizing. 5. Recurrent episode of paroxysmal atrial fibrillation. 6. Elevated AST and ALT, improving, most likely related to congestion. RECOMMENDATION: From the cardiac standpoint, we will continue current therapy. Increase her level activity gradually. I will follow her heart rate. The patient needs to be anticoagulated because of the recurrent atrial fibrillation and the ischemic cardiomyopathy. Once her liver function tests stabilize, then I would recommend to re- initiate treatment with a statin. MMODL / IJN: [id number] /
[2018-02-07] MEDS: METOPROLOL TARTRATE 12.5 MG TAB PO SCH ×2 (08:44→21:38)
[2018-02-07] MEDS: CLOPIDOGREL 75 MG TAB PO SCH (09:45)
--- NOTE | 2018-02-07 09:57 | P.PN ---
Subjective Patient is seen in follow-up for acute kidney injury. Creatinine peaked at 5.7 this admission and is down to 5.57 today. Patient underwent a CABG on 2017. She does have systolic CHF with ejection fraction of 30-35%. Diuretics are currently held. Denies chest pain or shortness of breath. Oral intake is good. She is nonoliguric. Hemodynamically stable. Vital signs are stable. General: The patient appeared well nourished and normally developed. HEENT: Head exam is unremarkable. Neck is without jugular venous distension. LUNGS: Lungs are clear to auscultation and percussion. Breath sounds decreased. HEART: Rate and Rhythm are regular. First and second heart sounds normal. No murmurs, rubs or gallops. ABDOMEN: Abdominal exam reveals normal bowel sounds. Non-tender and non- distended. No evidence of peritonitis. EXTREMITITES: No clubbing, cyanosis, or edema. Objective - Vital Signs Vital signs: Vital Signs Temp 97.7 F 02/07/18 08:00 Pulse 66 02/07/18 09:00 Resp 19 02/07/18 09:00 BP 111/60 02/07/18 09:00 Pulse Ox 93 L 02/07/18 09:00 Intake & Output 02/06/18 02/07/18 02/07/18 18:59 06:59 18:59 Intake Total 1325.5 640 Output Total 1100 890 135 Balance 225.5 -250 -135 Weight 79.5 kg Intake: IV 25.5 pressure bag 25.5 Oral 1300 640 Output: Drainage 60 15 Right Calf 60 15 Urine 1040 890 120 Other: Voiding Method Indwelling Catheter Indwelling Catheter Indwelling Catheter ABP, PAP, CO, CI - Last Documented Arterial Blood Pressure 92/51 Pulmonary Artery Pressure 51/26 Cardiac Output 5.4 Cardiac Index 3.0 - Labs CBC & Chem 7: 02/07/18 03:23 02/07/18 03:23 Labs: Abnormal Lab Results - Last 24 Hours (Table) 02/06/18 02/06/18 02/06/18 Range/Units 12:28 14:29 19:53 WBC (3.8-10.6) k/uL RBC (3.80-5.40) m/uL Hgb (11.4-16.0) gm/dL Hct (34.0-46.0) % RDW (11.5-15.5) % Neutrophils # (1.3-7.7) k/uL Lymphocytes # (1.0-4.8) k/uL INR 1.2 H (<1.2) Sodium (137-145) mmol/L Chloride (98-107) mmol/L BUN (7-17) mg/dL Creatinine (0.52-1.04) mg/dL Glucose (74-99) mg/dL POC Glucose (mg/dL) 116 H 121 H (75-99) mg/dL Phosphorus (2.5-4.5) mg/dL Magnesium (1.6-2.3) mg/dL AST (14-36) U/L ALT (9-52) U/L Alkaline Phosphatase (38-126) U/L Total Protein (6.3-8.2) g/dL Albumin (3.5-5.0) g/dL 02/07/18 02/07/18 02/07/18 Range/Units 03:23 03:23 03:23 WBC 12.1 H (3.8-10.6) k/uL RBC 2.95 L (3.80-5.40) m/uL Hgb 8.7 L (11.4-16.0) gm/dL Hct 27.3 L (34.0-46.0) % RDW 17.2 H (11.5-15.5) % Neutrophils # 9.8 H (1.3-7.7) k/uL Lymphocytes # 0.7 L (1.0-4.8) k/uL INR 1.2 H (<1.2) Sodium 135 L (137-145) mmol/L Chloride 90 L (98-107) mmol/L BUN 80 H* (7-17) mg/dL Creatinine 5.57 H* (0.52-1.04) mg/dL Glucose 100 H (74-99) mg/dL POC Glucose (mg/dL) (75-99) mg/dL Phosphorus 7.8 H (2.5-4.5) mg/dL Magnesium 3.4 H (1.6-2.3) mg/dL AST 63 H (14-36) U/L ALT 73 H (9-52) U/L Alkaline Phosphatase 127 H (38-126) U/L Total Protein 5.5 L (6.3-8.2) g/dL Albumin 3.1 L (3.5-5.0) g/dL 02/07/18 Range/Units 07:01 WBC (3.8-10.6) k/uL RBC (3.80-5.40) m/uL Hgb (11.4-16.0) gm/dL Hct (34.0-46.0) % RDW (11.5-15.5) % Neutrophils # (1.3-7.7) k/uL Lymphocytes # (1.0-4.8) k/uL INR (<1.2) Sodium (137-145) mmol/L Chloride (98-107) mmol/L BUN (7-17) mg/dL Creatinine (0.52-1.04) mg/dL Glucose (74-99) mg/dL POC Glucose (mg/dL) 107 H (75-99) mg/dL Phosphorus (2.5-4.5) mg/dL Magnesium (1.6-2.3) mg/dL AST (14-36) U/L ALT (9-52) U/L Alkaline Phosphatase (38-126) U/L Total Protein (6.3-8.2) g/dL Albumin (3.5-5.0) g/dL Assessment and Plan Plan: Assessment: #1. Nonoliguric acute kidney injury secondary to ATN secondary to hemodynamic instability and atrial fibrillation. Creatinine peaked at 5.7 this admission and is 5.57 today. Baseline creatinine is 1. #2. Coronary artery disease status post CABG on 02/03/2018. #3. Systolic CHF with ejection fraction of 30-35%. Currently compensated. #4. Hyperphosphatemia secondary to acute kidney injury. Maintained on PhosLo. #5. Atrial fibrillation maintained on oral amiodarone and Lopressor. Cardiology following. Plan: Continue to hold diuretics for now. Encourage oral intake. Avoid nephrotoxic agents and hypotensive episodes. Repeat electrolytes in the morning.
[2018-02-07] MEDS: ASPIRIN 81 MG PO SCH (10:48)
--- NOTE | 2018-02-07 11:00 | P.PN ---
Subjective Progress Note Date: 02/07/18 Principal diagnosis: Severe ischemic cardiomyopathy with EF 25-30%, left main disease, non-ST elevation myocardial infarction, acute on chronic systolic heart failure, hypertension, hyperlipidemia, mild mitral valve regurgitation, evidence of remote old inferior wall myocardial infarction. History of gout, recent pneumonia, syncope 2 years ago, previous tobacco dependence with preoperative FEV1 65%. Obesity. POD #7 urgent coronary artery bypass grafting 4 using the left internal mammary artery to the mid left anterior descending artery, reverse saphenous vein graft from the aorta to the diagonal artery, reverse saphenous vein graft from the aorta to the first obtuse marginal artery, reverse saphenous vein graft from the aorta to the posterior descending artery. Endoscopic harvesting of the right greater saphenous vein. Intraoperative transesophageal echocardiogram and epi-aortic scanning. Intraoperative graft flow measurements using the Codefied system. Postoperative acute elevation of transaminases, an unexpected but potential outcome of surgery. Postoperative atrial fibrillation, an expected outcome of surgery. Acute kidney injury, acute tubular necrosis secondary to hemodynamic changes and hypotension, an unexpected but potential outcome of surgery. The patient is currently sitting up in the recliner in no acute distress. She denies pain, shortness of breath. States she has ambulated in the hallway. Objective - Vital Signs Vital signs: Vital Signs Temp 97.7 F 02/07/18 08:00 Pulse 66 02/07/18 10:00 Resp 20 02/07/18 10:00 BP 103/54 02/07/18 10:00 Pulse Ox 94 L 02/07/18 10:00 Intake & Output 02/06/18 02/07/18 02/07/18 18:59 06:59 18:59 Intake Total 1325.5 640 250 Output Total 1100 890 235 Balance 225.5 -250 15 Weight 79.5 kg Intake: IV 25.5 pressure bag 25.5 Oral 1300 640 250 Output: Drainage 60 15 Right Calf 60 15 Urine 1040 890 220 Other: Voiding Method Indwelling Catheter Indwelling Catheter Indwelling Catheter ABP, PAP, CO, CI - Last Documented Arterial Blood Pressure 92/51 Pulmonary Artery Pressure 51/26 Cardiac Output 5.4 Cardiac Index 3.0 - Constitutional General appearance: Present: cooperative, no acute distress, obese - Respiratory Details: Lungs sounds diminished bilaterally. Respirations even, nonlabored. Currently on 3 L nasal cannula with oxygen saturation 97%. Only able to achieve 750 mL on her incentive spirometry. - Cardiovascular Details: S1, S2 present. Regular rate and rhythm, sinus rhythm on telemetry. A/V epicardial pacemaker wires present, grounded. Sternum stable. Palpable peripheral pulses bilaterally. No edema present. No calf pain or tenderness noted. Heart hugger in place with patient demonstrating appropriate use. Antiembolism stockings, SCDs present. - Gastrointestinal Gastrointestinal Comment(s): Abdomen soft, nontender, nondistended. Active bowel sounds 4 quadrants. Tolerating diet. Positive bowel movement. - Genitourinary Genitourinary Comment(s): [place] present draining clear, yellow urine. Output 50-175 mL/h overnight. - Integumentary Integumentary Comment(s): Skin is warm and dry with evidence of good perfusion. Anterior chest incision well approximated and covered with dry intact dressing. Right lower extremity EVH site well approximated, ELICEO drain present with minimal drainage. The area is ecchymotic which is expected after endovascular vein harvest. - Neurologic Neurologic: Present: CNII-XII intact - Musculoskeletal Musculoskeletal: Present: gait normal, strength equal bilaterally - Psychiatric Psychiatric: Present: A&O x's 3, appropriate affect, intact judgment & insight - Allied health notes Allied health notes reviewed: nursing - Labs CBC & Chem 7: 02/07/18 03:23 02/07/18 03:23 Labs: Abnormal Lab Results - Last 24 Hours (Table) 02/06/18 02/06/18 02/06/18 Range/Units 12:28 14:29 19:53 WBC (3.8-10.6) k/uL RBC (3.80-5.40) m/uL Hgb (11.4-16.0) gm/dL Hct (34.0-46.0) % RDW (11.5-15.5) % Neutrophils # (1.3-7.7) k/uL Lymphocytes # (1.0-4.8) k/uL INR 1.2 H (<1.2) Sodium (137-145) mmol/L Chloride (98-107) mmol/L BUN (7-17) mg/dL Creatinine (0.52-1.04) mg/dL Glucose (74-99) mg/dL POC Glucose (mg/dL) 116 H 121 H (75-99) mg/dL Phosphorus (2.5-4.5) mg/dL Magnesium (1.6-2.3) mg/dL AST (14-36) U/L ALT (9-52) U/L Alkaline Phosphatase (38-126) U/L Total Protein (6.3-8.2) g/dL Albumin (3.5-5.0) g/dL 02/07/18 02/07/18 02/07/18 Range/Units 03:23 03:23 03:23 WBC 12.1 H (3.8-10.6) k/uL RBC 2.95 L (3.80-5.40) m/uL Hgb 8.7 L (11.4-16.0) gm/dL Hct 27.3 L (34.0-46.0) % RDW 17.2 H (11.5-15.5) % Neutrophils # 9.8 H (1.3-7.7) k/uL Lymphocytes # 0.7 L (1.0-4.8) k/uL INR 1.2 H (<1.2) Sodium 135 L (137-145) mmol/L Chloride 90 L (98-107) mmol/L BUN 80 H* (7-17) mg/dL Creatinine 5.57 H* (0.52-1.04) mg/dL Glucose 100 H (74-99) mg/dL POC Glucose (mg/dL) (75-99) mg/dL Phosphorus 7.8 H (2.5-4.5) mg/dL Magnesium 3.4 H (1.6-2.3) mg/dL AST 63 H (14-36) U/L ALT 73 H (9-52) U/L Alkaline Phosphatase 127 H (38-126) U/L Total Protein 5.5 L (6.3-8.2) g/dL Albumin 3.1 L (3.5-5.0) g/dL 02/07/18 Range/Units 07:01 WBC (3.8-10.6) k/uL RBC (3.80-5.40) m/uL Hgb (11.4-16.0) gm/dL Hct (34.0-46.0) % RDW (11.5-15.5) % Neutrophils # (1.3-7.7) k/uL Lymphocytes # (1.0-4.8) k/uL INR (<1.2) Sodium (137-145) mmol/L Chloride (98-107) mmol/L BUN (7-17) mg/dL Creatinine (0.52-1.04) mg/dL Glucose (74-99) mg/dL POC Glucose (mg/dL) 107 H (75-99) mg/dL Phosphorus (2.5-4.5) mg/dL Magnesium (1.6-2.3) mg/dL AST (14-36) U/L ALT (9-52) U/L Alkaline Phosphatase (38-126) U/L Total Protein (6.3-8.2) g/dL Albumin (3.5-5.0) g/dL - Imaging and Cardiology Chest x-ray: image reviewed Assessment and Plan (1) Left main coronary artery disease Current Visit: Yes Status: Chronic Code(s): I25.10 - ATHSCL HEART DISEASE OF [place] CORONARY ARTERY W/O ANG PCTRS SNOMED Code(s): 519333078 (2) Acute on chronic systolic heart failure Current Visit: Yes Status: Acute Code(s): I50.23 - ACUTE ON CHRONIC SYSTOLIC (CONGESTIVE) HEART FAILURE SNOMED Code(s): 156086495 (3) History of myocardial infarction Current Visit: No Status: Resolved Code(s): I25.2 - OLD MYOCARDIAL INFARCTION SNOMED Code(s): 121004885 (4) History of gout Current Visit: Yes Status: Chronic Code(s): Z87.39 - PERSONAL HISTORY OF DISEASES OF THE MS SYS AND CONN TISS SNOMED Code(s): 593126057 (5) Tobacco dependence in remission Current Visit: No Status: Resolved Code(s): F17.201 - NICOTINE DEPENDENCE, UNSPECIFIED, IN REMISSION SNOMED Code(s): 867171269 (6) Coronary artery disease Current Visit: Yes Status: Chronic Code(s): I25.10 - ATHSCL HEART DISEASE OF [place] CORONARY ARTERY W/O ANG PCTRS SNOMED Code(s): 27239496 (7) Hyperlipidemia Current Visit: Yes Status: Chronic Code(s): E78.5 - HYPERLIPIDEMIA, UNSPECIFIED SNOMED Code(s): 06661644 (8) Hypertension Current Visit: Yes Status: Chronic Code(s): I10 - ESSENTIAL (PRIMARY) HYPERTENSION SNOMED Code(s): 97839161 (9) Ischemic cardiomyopathy Current Visit: Yes Status: Chronic Code(s): I25.5 - ISCHEMIC CARDIOMYOPATHY SNOMED Code(s): 846972074 (10) NSTEMI (non-ST elevated myocardial infarction) Current Visit: Yes Status: Acute Code(s): I21.4 - NON-ST ELEVATION (NSTEMI) MYOCARDIAL INFARCTION SNOMED Code(s): 548645065 Plan: 1. Continue low-dose aspirin, Plavix, subcu heparin, beta saw. Will increase beta saw as tolerated. Will hold Crestor for now secondary to elevated AST, ALT, will resume once liver enzymes normalize. 2. Continue amiodarone for A. fib prophylaxis. 3. Coumadin started for anticoagulation. Dosing daily based on PT/INR. Will discontinue Plavix once INR is therapeutic. 4. A/V epicardial pacemaker wires discontinued without incident, no ectopy noted. Patient to remain on bedrest for 1 hour. 5. Wean oxygen as tolerated. Encourage incentive spirometry use 10 times every hour. 6. Lasix discontinued, managed by nephrology. Avoid nephrotoxic agents. 7. Repeat echocardiogram demonstrated ischemic cardiomyopathy with ejection fraction 30-35%. Patient is a candidate for LifeVest at discharge. Will defer to cardiology for placement. 8. Will monitor daily labs and x-rays. 9. GI/DVT prophylaxis. 10. Diabetic management per primary care physician. 11. Increase activity, ambulate as tolerated. PT/OT/cardiac rehab following. 12. Will transfer to [facility]. 12. Discharge planning in progress. Anticipate discharge soon to inpatient rehab. Time with Patient: Greater than 30
--- NOTE | 2018-02-07 11:54 | P.PN ---
Subjective Progress Note Date: 02/07/18 Principal diagnosis: Severe triple-vessel coronary artery disease status post four-vessel bypass grafting This is a 72-year-old female with multiple medical problems including hypertension hyperlipidemia extrinsic ALLERGIC alveolitis as well as coronary artery disease. The patient's going to the operating room today for a bypass grafting. She's been seen by my partner for the last couple of days. She did have a CT angiogram that was negative for pulmonary embolism. When she was seen yesterday, she was doing well and she was asymptomatic. No chest pain no shortness of breath and difficulty breathing. No coughing or wheezing. Labs were in order. This morning, prior to surgery the patient still doing well. No major issues or problems. 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 Progress note dated 02/01/2018 This is a 72-year-old female who is postop day #1 status post four-vessel bypass grafting. The patient's currently on the mechanical ventilator. Her current vent settings are the assist control mode rate of 24, tidal volume of 400 she is on a FiO2 50% with a PEEP of 5. Arterial blood gases show a PaO2 of 85 a PaCO2 40 and a pH of 7.35. The patient is currently on propofol at 20 mics per kilogram per minute, Primacor at 0.2 mics per kilogram per minute, insulin drip at 2 units per hour, and Cleviprex at 2 mg an hour. The patient's IV is lactated Ringer's at 50 mL an hour. According to cardiothoracic pastry assistant , the patient can be weaned at this time. Chest x-ray show some mild fluid overload. The patient otherwise is stable. Even on a small amount of propofol , her mental status is reasonable. We'll wean that off and start the process. She has a history of non-ST segment elevation myocardial infarction, severe triple-vessel coronary artery disease, ischemic cardiomyopathy, systolic heart failure, hypertension, hyperlipidemia, extrinsic ALLERGIC alveolitis and COPD from previous heavy tobacco use. Progress note dated 02/02/2018 72-year-old female postop day #2, status post four-vessel bypass grafting. She was extubated yesterday on February 01. Currently, she is on a nonrebreather mask. In addition, she is on dopamine at 2 mcg/kg/m, a Lasix drip at 10 mg an hour, amiodarone at 0.5 mg/m and lactated Ringer's at 20 mL an hour. Chest x- ray shows just some mild fluid overload. The patient otherwise looks relatively weak. The patient seemed a little sleepy and lethargic. Does not really take in deep breaths. Chest x-ray though does not look horrible. 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 The patient's oxygen requirements have gone up since extubation, initially she was on 6 L by nasal cannula and is now on a nonrebreather. She may benefit from BiPAP therapy to help rest her. On 02/03/2018 patient is seen in follow-up in intensive care unit. She is awake , alert, seems a bit more upbeat and conversant compared to yesterday's exam. Currently down to 4 L per nasal cannula, and O2 sat is at 91%. Patient is afebrile, hemodynamically stable, patient went back into atrial fibrillation last night, and currently her heart rate is slightly tachycardic up to 109 BPM. Patient's IV amiodarone has been converted to oral amiodarone 200 mg by mouth twice a day. Maintenance IV fluids are LR at a rate of 10 ML per hour, and Lasix drip is currently at 15 mg per hour. Today's chest x-ray shows pastry assistant interstitial pattern with bilateral infiltrates and small effusion, consistent with CHF or fluid overload. Today's lab work shows to be BCR 14.6, hemoglobin is 8.5, sodium is 138, potassium 5.0, carbon dioxide is 21, BUN is 40, and creatinine is 3.67. Patient's renal profile has worsened. Patient is compliant with her incentive spirometry, is able to achieve 500 today, we'll continue to encourage breathing and coughing and obvious use. Her pain is reasonably controlled. Midsternal incision is clean dry and intact, patient has a left pleural chest tube to low continuous wall suction at -27 m of water. Small amount of thin serosanguineous drainage with 100 mL output in the last 8 hours, and 190 mL output in the last 24 hours. Cordova catheter is in place, draining clear parth urine, urine output is marginal, averaging about 30 ML per hour. As a ELICEO drain in the right lower leg with thin serosanguineous drainage, bilateral legs are Ervin wrapped. On 02/04/2018 patient is seen in follow-up in the intensive care unit. She is sitting up in the recliner, tolerating activity well. She did ambulate yesterday. Incentive spirometry effort is 750 today, FiO2 is currently down to 3 L per nasal cannula. Hemodynamically stable, afebrile. Today's lab work shows a WBC of 12.6, hemoglobin 8.5, sodium is 136, potassium is 5.2, BUN is 50 , creatinine is 4.70. Further worsening of the renal function. Patient maintenance IVs LR at the rate of 10 ML per hour, Lasix drip at 20 mg per hour. Today's chest x-ray shows interval removal of left pleural chest tube, pulmonary venous hypertension and interstitial edema, volume overload. Patient is in sinus rhythm. Liver enzymes are trending down, patient's Crestor remains on hold Progress note dated 02/06/2018 72-year-old female postop day #6, status post four-vessel bypass grafting. She was extubated on February 01. She's doing well. She's on O2 at 3 L. Not receiving any IV fluids. She has had on-and-off atrial fibrillation. Feels much better. She does have a history of previous non-ST segment elevation myocardial infarction, severe triple-vessel coronary artery disease, ischemic cardiomyopathy, systolic heart failure, hypertension, hyperlipidemia, extrinsic ALLERGIC alveolitis, and COPD. The patient is doing well. Probably from the pulmonary perspective could be discharged out of the unit. We'll wait and see what cardiothoracic has to say. She's doing pretty well recently on her incentive spirometer. On 02/07/2018 patient seen in follow-up in the intensive care unit. She is resting in bed, she has been ambulating in the hallway, tolerating activity well. FiO2 is currently down to 3 L per nasal cannula, with O2 sat 94%. Vital signs are stable, patient in sinus rhythm on the monitor with a rate at 66 BPM. Patient's chest tubes were discontinued last week, epicardial wires were discontinued this morning. Patient denies any acute distress, her pain is controlled with oral medications, her incentive spirometry effort is 750 today. Currently not on any maintenance IV fluids, or drips. On today's lab work WBCs 12.1, hemoglobin is 8.7, INR is 1.2, sodium is 135, potassium is 4.0 chloride is 90, B1 is 80, creatinine is 5.57, liver enzymes are trending down, AST is 63, AST 73, alkaline phosphatase is 127. Today's chest x-ray was reviewed and shows basilar atelectasis, small effusions, component of volume overload, pulmonary venous hypertension and interstitial edema. Her is in place, with antiembolism stockings and SCDs. Tolerating oral intake, no acute events overnight. Anticipate transfer to selective care unit today. Objective - Vital Signs Vital signs: Vital Signs Temp 97.7 F 02/07/18 08:00 Pulse 66 02/07/18 11:30 Resp 12 02/07/18 11:00 BP 92/50 02/07/18 11:00 Pulse Ox 94 L 02/07/18 11:00 Intake & Output 02/06/18 02/07/18 02/07/18 18:59 06:59 18:59 Intake Total 1325.5 640 250 Output Total 1100 890 235 Balance 225.5 -250 15 Weight 79.5 kg Intake: IV 25.5 pressure bag 25.5 Oral 1300 640 250 Output: Drainage 60 15 Right Calf 60 15 Urine 1040 890 220 Other: Voiding Method Indwelling Catheter Indwelling Catheter Indwelling Catheter ABP, PAP, CO, CI - Last Documented Arterial Blood Pressure 92/51 Pulmonary Artery Pressure 51/26 Cardiac Output 5.4 Cardiac Index 3.0 - Exam GENERAL EXAM: Alert, pleasant 72-year-old white female, comfortable in no apparent distress. Remains on 4 L per nasal cannula HEAD: Normocephalic/atraumatic. EYES: Normal reaction of pupils, equal size. Conjunctiva pink, sclera white. NOSE: Clear with pink turbinates. THROAT: No erythema or exudates. NECK: No masses, no JVD, no thyroid enlargement, no adenopathy. CHEST: No chest wall deformity. Symmetrical expansion. There is interval change left pleural chest tube removal. Midsternal incision is clean dry and intact and stable. Epicardial wires were discontinued this morning LUNGS: Lung sounds are positive for a few crackles at the bilateral posterior bases, worse over left posterior lower lobe CVS: Irregular rate and rhythm, normal S1 and S2, no gallops, no murmurs, no rubs ABDOMEN: Soft, nontender. No hepatosplenomegaly, normal bowel sounds, no guarding or rigidity. EXTREMITIES: No clubbing, no edema, no cyanosis, 2+ pulses and upper and lower extremities. Bilateral lower extremities are ervni wrapped MUSCULOSKELETAL: Muscle strength and tone normal. SPINE: No scoliosis or deformity SKIN: No rashes CENTRAL NERVOUS SYSTEM: Alert and oriented -3. No focal deficits, tone is normal in all 4 extremities. PSYCHIATRIC: Alert and oriented -3. Appropriate affect. Intact judgment and insight. - Labs CBC & Chem 7: 02/07/18 03:23 02/07/18 03:23 Labs: Abnormal Lab Results - Last 24 Hours (Table) 02/06/18 02/06/18 02/06/18 Range/Units 12:28 14:29 19:53 WBC (3.8-10.6) k/uL RBC (3.80-5.40) m/uL Hgb (11.4-16.0) gm/dL Hct (34.0-46.0) % RDW (11.5-15.5) % Neutrophils # (1.3-7.7) k/uL Lymphocytes # (1.0-4.8) k/uL INR 1.2 H (<1.2) Sodium (137-145) mmol/L Chloride (98-107) mmol/L BUN (7-17) mg/dL Creatinine (0.52-1.04) mg/dL Glucose (74-99) mg/dL POC Glucose (mg/dL) 116 H 121 H (75-99) mg/dL Phosphorus (2.5-4.5) mg/dL Magnesium (1.6-2.3) mg/dL AST (14-36) U/L ALT (9-52) U/L Alkaline Phosphatase (38-126) U/L Total Protein (6.3-8.2) g/dL Albumin (3.5-5.0) g/dL 02/07/18 02/07/18 02/07/18 Range/Units 03:23 03:23 03:23 WBC 12.1 H (3.8-10.6) k/uL RBC 2.95 L (3.80-5.40) m/uL Hgb 8.7 L (11.4-16.0) gm/dL Hct 27.3 L (34.0-46.0) % RDW 17.2 H (11.5-15.5) % Neutrophils # 9.8 H (1.3-7.7) k/uL Lymphocytes # 0.7 L (1.0-4.8) k/uL INR 1.2 H (<1.2) Sodium 135 L (137-145) mmol/L Chloride 90 L (98-107) mmol/L BUN 80 H* (7-17) mg/dL Creatinine 5.57 H* (0.52-1.04) mg/dL Glucose 100 H (74-99) mg/dL POC Glucose (mg/dL) (75-99) mg/dL Phosphorus 7.8 H (2.5-4.5) mg/dL Magnesium 3.4 H (1.6-2.3) mg/dL AST 63 H (14-36) U/L ALT 73 H (9-52) U/L Alkaline Phosphatase 127 H (38-126) U/L Total Protein 5.5 L (6.3-8.2) g/dL Albumin 3.1 L (3.5-5.0) g/dL 02/07/18 Range/Units 07:01 WBC (3.8-10.6) k/uL RBC (3.80-5.40) m/uL Hgb (11.4-16.0) gm/dL Hct (34.0-46.0) % RDW (11.5-15.5) % Neutrophils # (1.3-7.7) k/uL Lymphocytes # (1.0-4.8) k/uL INR (<1.2) Sodium (137-145) mmol/L Chloride (98-107) mmol/L BUN (7-17) mg/dL Creatinine (0.52-1.04) mg/dL Glucose (74-99) mg/dL POC Glucose (mg/dL) 107 H (75-99) mg/dL Phosphorus (2.5-4.5) mg/dL Magnesium (1.6-2.3) mg/dL AST (14-36) U/L ALT (9-52) U/L Alkaline Phosphatase (38-126) U/L Total Protein (6.3-8.2) g/dL Albumin (3.5-5.0) g/dL Assessment and Plan Plan: Assessment: Severe triple-vessel coronary disease Postop day #6, status post four-vessel bypass grafting. Postoperative respiratory failure, with extubation on February 01. Acute non-ST segment elevation myocardial infarction Severe ischemic cardiomyopathy Systolic congestive heart failure Benign essential hypertension Hyperlipidemia Extrinsic ALLERGIC alveolitis Mild COPD Previous tobacco history Plan: Patient is is progressing well, FiO2 down to 3 L per nasal cannula, denies any distress. Continue I S, continue ambulation. She is off all maintenance IV fluids and drips. Renal profile is slightly improved, nephrology is following. Vital signs remain stable, patient is afebrile. Today's chest x-ray was reviewed, shows basilar atelectasis with small pleural effusions and component of interstitial edema. No acute events overnight, CT surgery is planning on transferring the patient out of the intensive care today to the selective care unit. I performed a history & physical examination of the patient and discussed their management with my nurse practitioner, Jessica Whitfield. I reviewed the nurse practitioner's note and agree with the documented findings and plan of care. Lung sounds are positive for a few rales at posterior basilar spaces. The findings and the impression was discussed with the patient. I attest to the documentation by the nurse practitioner. Critical care time is over 30 minutes Time with Patient: Greater than 30
[2018-02-07 12:12] LABS: Glucose,Whole Blood 116 mg/dL (75-99)
[2018-02-07] MEDS: CALCIUM ACETATE 667 MG CAP PO SCH ×2 (12:15→18:17)
[2018-02-07 17:10] LABS: Glucose,Whole Blood 133 mg/dL (75-99)
[2018-02-07] MEDS ORDERED: WARFARIN 5 MG TAB PO ONE (18:00)
[2018-02-07] MEDS: WARFARIN 5 MG TAB PO ONE (18:18)
--- NOTE | 2018-02-07 18:36 | P.PN ---
Subjective Progress Note Date: 02/07/18 Progress note being dictated for Dr. Linda. Status post cardiac catheterization, triple-vessel disease. Interval history:This is a pleasant 73-year-old female patient with a past medical history significant for hypertension and dyslipidemia with no documented history of coronary artery disease or congestive heart failure presented to the hospital complaining of shortness of breath for the last 3 weeks. The patient stated that the shortness of breath was started about 3 weeks ago. Beside that she describes epigastric discomfort. She stated she developed bilateral lower extremities edema and she was seen by her primary care physician who put her on Lasix with improvement in the edema. The patient did not have any symptoms of chest pain or discomfort, dizziness or lightheadedness , or any syncope. She does have epigastric discomfort mainly. The EKG showed sinus rhythm with nonspecific changes in the inferior leads. There was also some ST and T wave abnormalities seems to be diffuse. Beside that the d-dimer came in to be abnormal and the patient is in process to have a CTA of the chest to rule out any PE. The BNP came in to be also severely abnormal and the patient was given Lasix IV in the emergency room. The first set of troponin also came in to be slightly abnormal. The patient underwent an emergent heart catheterization and that revealed severe triple-vessel coronary artery disease. She was seen and evaluated by cardiothoracic surgeon and the plan is to proceed with CABG this coming Wednesday. 01/28/2018 Patient seen and examined at bedside in ICU; family members at bedside; she denies any chest pain or shortness of breath; patient is continued on aspirin, metoprolol, Lasix and Aldactone; statins and lisinopril has been continued; echocardiogram showed impaired left ventricular function with ejection fraction of 25-30% 01/29/2018 Patient remains in ICU; sitting up in a chair and denies any chest pain or shortness of breath; overall patient seems to be doing better 01/30/2018 Patient remains in ICU and remains chest pain-free; patient relates that her swelling in both lower extremities is improved; she remains on Lasix and Aldactone Patient is scheduled for CABG in the morning 01/31/2018 Patient underwent quadruple bypass graft today currently intubated postoperatively. Pulmonary and CT surgery is following. Chest x-ray showed left lower lung atelectasis and possible postoperative changes. 02/01/2018 Patient is status post quadruple bypass graft. Patient was successfully weaned off of ventilator. Next and chest x-ray showed mild fluid overload. Otherwise patient is awake alert and lying in the bed comfortable.. Patient went to atrial fibrillation and was started on amiodarone. No fever no chills. No chest pain or worsening shortness of breath. Complete review of systems could not be apparent from the patient. 02/02/2018 Patient is more awake and alert today. Able to also simple questions. Currently converted back to sinus rhythm. Amiodarone has been changed to oral. Patient is on dopamine drip at low-dose. Continued on IV Lasix drip. Patient is being converted on aspirin, Plavix and statins. Cardiology and pulmonary is following. No fever no chills. Patient denied any worsening shortness of breath or chest pain. 02/03/2018 Patient is awake and oriented able to sit in the chair and is improving clinically and patient is maintained on Lasix drip. Off pressors support. No other acute overnight issues. Cardiology and pulmonary is following. Clinically improving. 02/04/2018 Patient is currently sitting in the chair. Part spreading in physical therapy. Still on IV Lasix and her leg swelling is improving otherwise. BUN 50 creatinine 4.7 Chest x-ray showed interval al of left pleural chest tube. Pulmonary venous hypertension and interstitial edema . Tolerating oral diet. Crestor is on hold due to elevated laryngitis which are trending down now. No complaints of chest pain. No worsening shortness of breath. No nausea vomiting or abdominal pain. 02/05/2018 Patient currently sitting in the chair comfortably. No complaints of chest pain or worsening shortness of breath. Otherwise symptomatically much improved now. Participating in physical therapy. Chest x-ray showed postoperative changes with left basilar air space disease and small bilateral pleural effusions. Patient is being continued on IV Lasix now. BUN 60 creatinine 5.6. Amiodarone has been changed to metoprolol low-dose. Patient is being followed by cardiology and nephrology and pulmonary. 02/06/2018 Patient is sitting in the chair comfortably. No fever no chills. Tolerating oral diet. Leg swelling is much improved now. Patient is being continued on Lasix otherwise. Creatinine level increased to 5.7 due to ATN. Otherwise continue on amiodarone and metoprolol. Remain on sinus rhythm. Cardiology and pulmonary is following. No other acute overnight issues. Participating in physical therapy. 02/07/2018 Coumadin initiated yesterday for paroxysmal atrial fibrillation, currently sinus rhythm. Ambulating, tolerating increase in exertion well. Awaiting transfer out to telemetry floor. Incentive spirometer up to 750. Chest x-ray reporting basilar atelectasis, small effusions, component of confinement overload, interstitial edema, pulmonary venous hypertension. Good diet intake, Blood sugars controlled. Creatinine 5.57 with diuretics currently on hold. LFTs improving. Epicardial wires discontinued this morning. Objective - Vital Signs Vital signs: Vital Signs Temp 97.1 F L 02/07/18 16:53 Pulse 68 02/07/18 16:53 Resp 18 02/07/18 16:53 BP 117/57 02/07/18 16:53 Pulse Ox 95 02/07/18 16:53 Intake & Output 02/06/18 02/07/18 02/07/18 18:59 06:59 18:59 Intake Total 1325.5 640 722 Output Total 1100 890 535 Balance 225.5 -250 187 Weight 79.5 kg Intake: IV 25.5 pressure bag 25.5 Oral 1300 640 722 Output: Drainage 60 15 Right Calf 60 15 Urine 1040 890 520 Other: Voiding Method Indwelling Catheter Indwelling Catheter Indwelling Catheter ABP, PAP, CO, CI - Last Documented Arterial Blood Pressure 92/51 Pulmonary Artery Pressure 51/26 Cardiac Output 5.4 Cardiac Index 3.0 - Exam PHYSICAL EXAMINATION: Patient is lying in the bed comfortably, no acute distress, awake alert and oriented HEENT: Normocephalic. Neck is supple. Pupils reactive. Nostrils clear. Oral cavity is moist. Ears reveal no drainage. Neck reveals no JVD, carotid bruits, or thyromegaly. CHEST EXAMINATION: Sternal wound is bandaged. Trachea is central. Symmetrical expansion. Bibasilar minimal crackles. No wheezing CARDIAC: Normal S1, S2 with no gallops. No murmurs ABDOMEN: Soft. Bowel sounds normal. No organomegaly. No abdominal bruits. Extremities: reveal 2+ edema. No clubbing or cyanosis Neurologically awake alert and oriented 3. No focal deficits noted Skin: No rash or skin lesions. Psychiatric: Cooperative. Nonsuicidal Musculoskeletal: No joint swelling or deformity. Normal range of motion. - Labs CBC & Chem 7: 02/07/18 03:23 02/07/18 03:23 Labs: Abnormal Lab Results - Last 24 Hours (Table) 02/06/18 02/07/18 02/07/18 Range/Units 19:53 03:23 03:23 WBC 12.1 H (3.8-10.6) k/uL RBC 2.95 L (3.80-5.40) m/uL Hgb 8.7 L (11.4-16.0) gm/dL Hct 27.3 L (34.0-46.0) % RDW 17.2 H (11.5-15.5) % Neutrophils # 9.8 H (1.3-7.7) k/uL Lymphocytes # 0.7 L (1.0-4.8) k/uL INR (<1.2) Sodium 135 L (137-145) mmol/L Chloride 90 L (98-107) mmol/L BUN 80 H* (7-17) mg/dL Creatinine 5.57 H* (0.52-1.04) mg/dL Glucose 100 H (74-99) mg/dL POC Glucose (mg/dL) 121 H (75-99) mg/dL Phosphorus 7.8 H (2.5-4.5) mg/dL Magnesium 3.4 H (1.6-2.3) mg/dL AST 63 H (14-36) U/L ALT 73 H (9-52) U/L Alkaline Phosphatase 127 H (38-126) U/L Total Protein 5.5 L (6.3-8.2) g/dL Albumin 3.1 L (3.5-5.0) g/dL 02/07/18 02/07/18 02/07/18 Range/Units 03:23 07:01 12:10 WBC (3.8-10.6) k/uL RBC (3.80-5.40) m/uL Hgb (11.4-16.0) gm/dL Hct (34.0-46.0) % RDW (11.5-15.5) % Neutrophils # (1.3-7.7) k/uL Lymphocytes # (1.0-4.8) k/uL INR 1.2 H (<1.2) Sodium (137-145) mmol/L Chloride (98-107) mmol/L BUN (7-17) mg/dL Creatinine (0.52-1.04) mg/dL Glucose (74-99) mg/dL POC Glucose (mg/dL) 107 H 116 H (75-99) mg/dL Phosphorus (2.5-4.5) mg/dL Magnesium (1.6-2.3) mg/dL AST (14-36) U/L ALT (9-52) U/L Alkaline Phosphatase (38-126) U/L Total Protein (6.3-8.2) g/dL Albumin (3.5-5.0) g/dL 02/07/18 Range/Units 17:08 WBC (3.8-10.6) k/uL RBC (3.80-5.40) m/uL Hgb (11.4-16.0) gm/dL Hct (34.0-46.0) % RDW (11.5-15.5) % Neutrophils # (1.3-7.7) k/uL Lymphocytes # (1.0-4.8) k/uL INR (<1.2) Sodium (137-145) mmol/L Chloride (98-107) mmol/L BUN (7-17) mg/dL Creatinine (0.52-1.04) mg/dL Glucose (74-99) mg/dL POC Glucose (mg/dL) 133 H (75-99) mg/dL Phosphorus (2.5-4.5) mg/dL Magnesium (1.6-2.3) mg/dL AST (14-36) U/L ALT (9-52) U/L Alkaline Phosphatase (38-126) U/L Total Protein (6.3-8.2) g/dL Albumin (3.5-5.0) g/dL Assessment and Plan Assessment: Acute non-ST elevated DC. Status post Cardiac catheterization showed triple- vessel disease. Status post quadruple bypass graft on 01/31/2018 Atrial fibrillation with rapid ventricular rate. Currently on low-dose metoprolol and amiodarone, anticoagulated on Coumadin. Acute kidney injury due to ATN with worsening creatinine level Exertional shortness of breath for 2 weeks prior to admission Acute CHF with systolic dysfunction Severe ischemic cardio myopathy Leukocytosis. Likely reactive. Hypertension hyperlipidemia Obesity DVT prophylaxis Plan: Continue on current medication regime ,monitoring and symptomatic treatment. As mentioned above awaiting transfer to 6 E. telemetry floor. Close monitoring of Accu-Cheks., Currently controlled. Avoid nephrotoxic agents with close monitoring of renal function. Diuretics remain on hold as per nephrology. Aggressive pulmonary toileting. The impression and plan of care has been dictated as directed. : I performed a history and examination of this patient, discussed the same with the dictator. I agree with the dictator's note ,documented as a scribe. Any additional findings or plans will be noted.
[2018-02-07 20:23] LABS: Glucose,Whole Blood 149 mg/dL (75-99)
[2018-02-07] MEDS: SENNOSIDES-DOCUSATE SODIUM 1 EACH TAB PO SCH (21:39)
[2018-02-08] MEDS: HEPARIN SODIUM,PORCINE 5,000 UNIT/ML 1 ML VIAL SQ SCH ×3 (00:18→17:23)
[2018-02-08 01:56] LABS: Glucose,Whole Blood 114 mg/dL (75-99)
[2018-02-08] MEDS: INSULIN ASPART 100 UNIT/ML 1 ML 10 ML VIAL SQ SCH ×5 (03:17→21:27)
[2018-02-08] MEDS: HYDROcodone/APAP 5-325MG 1 EACH TAB PO PRN (03:56)
[2018-02-08 05:39] LABS: Anisocytosis Slight; HCT 26.4 % (34.0-46.0); HGB 8.6 gm/dL (11.4-16.0); MCH 30.1 pg (25.0-35.0); MCHC 32.5 g/dL (31.0-37.0); MCV 92.7 fL (80.0-100.0); Mean Platelet Volume 7.7; Platelet Count 228 k/uL (150-450); RBC 2.84 m/uL (3.80-5.40); WBC 11.5 k/uL (3.8-10.6)
[2018-02-08 05:51] LABS: INR 1.2 (<1.2); Prothrombin Time 11.1 sec (9.0-12.0)
[2018-02-08 06:02] LABS: Glucose,Whole Blood 109 mg/dL (75-99)
[2018-02-08] MEDS: PANTOPRAZOLE 40 MG TABLET PO SCH (06:30)
[2018-02-08 06:33] LABS: Albumin 3.3 g/dL (3.5-5.0); Calcium 9.8 mg/dL (8.4-10.2); Potassium 3.8 mmol/L (3.5-5.1); Total Bilirubin 0.8 mg/dL (0.2-1.3); Total Protein 5.8 g/dL (6.3-8.2)
[2018-02-08] MEDS: SYMBICORT 160-4.5 MCG INHALER INHALATION SCH ×2 (07:19→20:03)
[2018-02-08] MEDS: IPRATROPIUM-ALBUTEROL 3 ML NEB INHALATION SCH ×4 (07:19→20:03)
--- NOTE | 2018-02-08 08:17 | XR ---
EXAMINATION TYPE: XR chest 2V DATE OF EXAM: 02/08/2018 COMPARISON: Prior chest x-ray 02/07/2018 HISTORY: Post cardiac surgery TECHNIQUE: Frontal and lateral views of the chest are obtained. FINDINGS: Patient is post median sternotomy. Heart remains enlarged. There is improved aeration at t he lung bases. No evident pneumothorax. There are overlying cardiac leads. Interstitium mildly increa sed. Patchy basilar density persists. IMPRESSION: There is improvement in aeration. Additional follow-up recommended.
[2018-02-08] MEDS: ASPIRIN 81 MG PO SCH (10:17)
[2018-02-08] MEDS: AMIODARONE 200 MG TAB PO SCH ×2 (10:17→21:27)
[2018-02-08] MEDS: METOPROLOL TARTRATE 12.5 MG TAB PO SCH ×2 (10:18→21:27)
[2018-02-08] MEDS: CLOPIDOGREL 75 MG TAB PO SCH (10:18)
--- NOTE | 2018-02-08 10:49 | P.PN ---
Subjective Progress Note Date: 02/08/18 Principal diagnosis: Severe ischemic cardiomyopathy with EF 25-30%, left main disease, non-ST elevation myocardial infarction, acute on chronic systolic heart failure, hypertension, hyperlipidemia, mild mitral valve regurgitation, evidence of remote old inferior wall myocardial infarction. History of gout, recent pneumonia, syncope 2 years ago, previous tobacco dependence with preoperative FEV1 65%. Obesity. POD #8 urgent coronary artery bypass grafting 4 using the left internal mammary artery to the mid left anterior descending artery, reverse saphenous vein graft from the aorta to the diagonal artery, reverse saphenous vein graft from the aorta to the first obtuse marginal artery, reverse saphenous vein graft from the aorta to the posterior descending artery. Endoscopic harvesting of the right greater saphenous vein. Intraoperative transesophageal echocardiogram and epi-aortic scanning. Intraoperative graft flow measurements using the Next [employer] system. Postoperative acute elevation of transaminases, an unexpected but potential outcome of surgery. Postoperative atrial fibrillation, an expected outcome of surgery. Acute kidney injury, acute tubular necrosis secondary to hemodynamic changes and hypotension, an unexpected but potential outcome of surgery. The patient is currently sitting up in the recliner in no acute distress. She denies pain, shortness of breath. States she has ambulated in the hallway. She was transferred out of ICU to [address] [place] [address] yesterday afternoon. Objective - Vital Signs Vital signs: Vital Signs Temp 98.0 F 02/08/18 03:30 Pulse 72 02/08/18 07:37 Resp 18 02/08/18 03:30 BP 121/61 02/08/18 03:30 Pulse Ox 95 02/08/18 07:20 Intake & Output 02/07/18 02/08/18 02/08/18 18:59 06:59 18:59 Intake Total 722 240 Output Total 535 200 200 Balance 187 -200 40 Weight 77.6 kg Intake: Oral 722 240 Output: Drainage 15 Right Calf 15 Urine 520 200 200 Other: Voiding Method Indwelling Catheter Toilet # Voids 2 1 # Bowel Movements 0 ABP, PAP, CO, CI - Last Documented Arterial Blood Pressure 92/51 Pulmonary Artery Pressure 51/26 Cardiac Output 5.4 Cardiac Index 3.0 - Constitutional General appearance: Present: cooperative, no acute distress, obese - Respiratory Details: Lungs sounds diminished bilaterally. Respirations even, nonlabored. Currently on 3 L nasal cannula with oxygen saturation 95%. Only able to achieve 1000 mL on her incentive spirometry. - Cardiovascular Details: S1, S2 present. Regular rate and rhythm, sinus rhythm on telemetry. Sternum stable. Palpable peripheral pulses bilaterally. No edema present. No calf pain or tenderness noted. Heart hugger in place with patient demonstrating appropriate use. Antiembolism stockings, SCDs present. - Gastrointestinal Gastrointestinal Comment(s): Abdomen soft, nontender, nondistended. Active bowel sounds 4 quadrants. Tolerating diet. Positive bowel movement. - Genitourinary Genitourinary Comment(s): Cordova discontinued yesterday. Patient voiding clear, yellow urine. - Neurologic Neurologic: Present: CNII-XII intact - Musculoskeletal Musculoskeletal: Present: gait normal, strength equal bilaterally - Psychiatric Psychiatric: Present: A&O x's 3, appropriate affect, intact judgment & insight - Allied health notes Allied health notes reviewed: nursing - Labs CBC & Chem 7: 02/08/18 05:20 02/08/18 05:20 Labs: Abnormal Lab Results - Last 24 Hours (Table) 02/07/18 02/07/18 02/07/18 Range/Units 12:10 17:08 20:21 WBC (3.8-10.6) k/uL RBC (3.80-5.40) m/uL Hgb (11.4-16.0) gm/dL Hct (34.0-46.0) % RDW (11.5-15.5) % INR (<1.2) Sodium (137-145) mmol/L Chloride (98-107) mmol/L BUN (7-17) mg/dL Creatinine (0.52-1.04) mg/dL POC Glucose (mg/dL) 116 H 133 H 149 H (75-99) mg/dL AST (14-36) U/L ALT (9-52) U/L Total Protein (6.3-8.2) g/dL Albumin (3.5-5.0) g/dL 02/08/18 02/08/18 02/08/18 Range/Units 01:55 05:20 05:20 WBC 11.5 H (3.8-10.6) k/uL RBC 2.84 L (3.80-5.40) m/uL Hgb 8.6 L (11.4-16.0) gm/dL Hct 26.4 L (34.0-46.0) % RDW 17.0 H (11.5-15.5) % INR 1.2 H (<1.2) Sodium (137-145) mmol/L Chloride (98-107) mmol/L BUN (7-17) mg/dL Creatinine (0.52-1.04) mg/dL POC Glucose (mg/dL) 114 H (75-99) mg/dL AST (14-36) U/L ALT (9-52) U/L Total Protein (6.3-8.2) g/dL Albumin (3.5-5.0) g/dL 02/08/18 02/08/18 Range/Units 05:20 06:01 WBC (3.8-10.6) k/uL RBC (3.80-5.40) m/uL Hgb (11.4-16.0) gm/dL Hct (34.0-46.0) % RDW (11.5-15.5) % INR (<1.2) Sodium 134 L (137-145) mmol/L Chloride 91 L (98-107) mmol/L BUN 87 H* (7-17) mg/dL Creatinine 4.90 H (0.52-1.04) mg/dL POC Glucose (mg/dL) 109 H (75-99) mg/dL AST 52 H (14-36) U/L ALT 75 H (9-52) U/L Total Protein 5.8 L (6.3-8.2) g/dL Albumin 3.3 L (3.5-5.0) g/dL - Imaging and Cardiology Chest x-ray: report reviewed, image reviewed Assessment and Plan (1) Left main coronary artery disease Current Visit: Yes Status: Chronic Code(s): I25.10 - ATHSCL HEART DISEASE OF [place] CORONARY ARTERY W/O ANG PCTRS SNOMED Code(s): 213884853 (2) Acute on chronic systolic heart failure Current Visit: Yes Status: Acute Code(s): I50.23 - ACUTE ON CHRONIC SYSTOLIC (CONGESTIVE) HEART FAILURE SNOMED Code(s): 860220134 (3) History of myocardial infarction Current Visit: No Status: Resolved Code(s): I25.2 - OLD MYOCARDIAL INFARCTION SNOMED Code(s): 725973406 (4) History of gout Current Visit: Yes Status: Chronic Code(s): Z87.39 - PERSONAL HISTORY OF DISEASES OF THE [place] S[place] AND [place]N TISS SNOMED Code(s): 187104090 (5) Tobacco dependence in remission Current Visit: No Status: Resolved Code(s): F17.201 - NICOTINE DEPENDENCE, UNSPECIFIED, IN REMISSION SNOMED Code(s): 252655513 (6) Coronary artery disease Current Visit: Yes Status: Chronic Code(s): I25.10 - ATHSCL HEART DISEASE OF [place] CORONARY ARTERY W/O ANG PCTRS SNOMED Code(s): 48010830 (7) Hyperlipidemia Current Visit: Yes Status: Chronic Code(s): E78.5 - HYPERLIPIDEMIA, UNSPECIFIED SNOMED Code(s): 81418381 (8) Hypertension Current Visit: Yes Status: Chronic Code(s): I10 - ESSENTIAL (PRIMARY) HYPERTENSION SNOMED Code(s): 24434588 (9) Ischemic cardiomyopathy Current Visit: Yes Status: Chronic Code(s): I25.5 - ISCHEMIC CARDIOMYOPATHY SNOMED Code(s): 155839700 (10) NSTEMI (non-ST elevated myocardial infarction) Current Visit: Yes Status: Acute Code(s): I21.4 - NON-ST ELEVATION (NSTEMI) MYOCARDIAL INFARCTION SNOMED Code(s): 904997429 Plan: 1. Continue low-dose aspirin, Plavix, subcu heparin, beta saw. Will increase beta saw as tolerated. Will hold Crestor for now secondary to elevated AST, ALT, will resume once liver enzymes normalize. 2. Continue amiodarone for A. fib prophylaxis. Decrease to 200 mg twice a day on February 10 for 1 week, then decrease to 200 mg daily. 3. Continue Coumadin for anticoagulation. Dosing daily based on PT/INR. Will discontinue Plavix once INR is therapeutic. 4. Wean oxygen as tolerated. Encourage incentive spirometry use 10 times every hour. 5. Lasix discontinued, managed by nephrology. Avoid nephrotoxic agents. Encourage oral intake. 6. Repeat echocardiogram demonstrated ischemic cardiomyopathy with ejection fraction 30-35%. Patient is a candidate for LifeVest at discharge. Will defer to cardiology for placement. 7. Will monitor daily labs and x-rays. 8. GI/DVT prophylaxis. 9. Diabetic management per primary care physician. 10. Increase activity, ambulate as tolerated. PT/OT/cardiac rehab following. 11. Discharge planning in progress. Anticipate discharge tomorrow to inpatient rehab. Time with Patient: Greater than 30
--- NOTE | 2018-02-08 11:28 | P.PN ---
Subjective Progress Note Date: 02/08/18 Principal diagnosis: Severe triple-vessel coronary artery disease status post coronary artery bypass grafting 4. This is a 72-year-old female with multiple medical problems including hypertension hyperlipidemia extrinsic ALLERGIC alveolitis as well as coronary artery disease. The patient's going to the operating room today for a bypass grafting. She's been seen by my partner for the last couple of days. She did have a CT angiogram that was negative for pulmonary embolism. When she was seen yesterday, she was doing well and she was asymptomatic. No chest pain no shortness of breath and difficulty breathing. No coughing or wheezing. Labs were in order. This morning, prior to surgery the patient still doing well. No major issues or problems. 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 Progress note dated 02/01/2018 This is a 72-year-old female who is postop day #1 status post four-vessel bypass grafting. The patient's currently on the mechanical ventilator. Her current vent settings are the assist control mode rate of 24, tidal volume of 400 she is on a FiO2 50% with a PEEP of 5. Arterial blood gases show a PaO2 of 85 a PaCO2 40 and a pH of 7.35. The patient is currently on propofol at 20 mics per kilogram per minute, Primacor at 0.2 mics per kilogram per minute, insulin drip at 2 units per hour, and Cleviprex at 2 mg an hour. The patient's IV is lactated Ringer's at 50 mL an hour. According to cardiothoracic assistant signal maintainer , the patient can be weaned at this time. Chest x-ray show some mild fluid overload. The patient otherwise is stable. Even on a small amount of propofol , her mental status is reasonable. We'll wean that off and start the process. She has a history of non-ST segment elevation myocardial infarction, severe triple-vessel coronary artery disease, ischemic cardiomyopathy, systolic heart failure, hypertension, hyperlipidemia, extrinsic ALLERGIC alveolitis and COPD from previous heavy tobacco use. Progress note dated 02/02/2018 72-year-old female postop day #2, status post four-vessel bypass grafting. She was extubated yesterday on February 01. Currently, she is on a nonrebreather mask. In addition, she is on dopamine at 2 mcg/kg/m, a Lasix drip at 10 mg an hour, amiodarone at 0.5 mg/m and lactated Ringer's at 20 mL an hour. Chest x- ray shows just some mild fluid overload. The patient otherwise looks relatively weak. The patient seemed a little sleepy and lethargic. Does not really take in deep breaths. Chest x-ray though does not look horrible. 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 The patient's oxygen requirements have gone up since extubation, initially she was on 6 L by nasal cannula and is now on a nonrebreather. She may benefit from BiPAP therapy to help rest her. On 02/03/2018 patient is seen in follow-up in intensive care unit. She is awake , alert, seems a bit more upbeat and conversant compared to yesterday's exam. Currently down to 4 L per nasal cannula, and O2 sat is at 91%. Patient is afebrile, hemodynamically stable, patient went back into atrial fibrillation last night, and currently her heart rate is slightly tachycardic up to 109 BPM. Patient's IV amiodarone has been converted to oral amiodarone 200 mg by mouth twice a day. Maintenance IV fluids are LR at a rate of 10 ML per hour, and Lasix drip is currently at 15 mg per hour. Today's chest x-ray shows assistant signal maintainer interstitial pattern with bilateral infiltrates and small effusion, consistent with CHF or fluid overload. Today's lab work shows to be BCR 14.6, hemoglobin is 8.5, sodium is 138, potassium 5.0, carbon dioxide is 21, BUN is 40, and creatinine is 3.67. Patient's renal profile has worsened. Patient is compliant with her incentive spirometry, is able to achieve 500 today, we'll continue to encourage breathing and coughing and obvious use. Her pain is reasonably controlled. Midsternal incision is clean dry and intact, patient has a left pleural chest tube to low continuous wall suction at -27 m of water. Small amount of thin serosanguineous drainage with 100 mL output in the last 8 hours, and 190 mL output in the last 24 hours. Cordova catheter is in place, draining clear parth urine, urine output is marginal, averaging about 30 ML per hour. As a ELICEO drain in the right lower leg with thin serosanguineous drainage, bilateral legs are Ervin wrapped. On 02/04/2018 patient is seen in follow-up in the intensive care unit. She is sitting up in the recliner, tolerating activity well. She did ambulate yesterday. Incentive spirometry effort is 750 today, FiO2 is currently down to 3 L per nasal cannula. Hemodynamically stable, afebrile. Today's lab work shows a WBC of 12.6, hemoglobin 8.5, sodium is 136, potassium is 5.2, BUN is 50 , creatinine is 4.70. Further worsening of the renal function. Patient maintenance IVs LR at the rate of 10 ML per hour, Lasix drip at 20 mg per hour. Today's chest x-ray shows interval removal of left pleural chest tube, pulmonary venous hypertension and interstitial edema, volume overload. Patient is in sinus rhythm. Liver enzymes are trending down, patient's Crestor remains on hold The patient is seen again today 02/05/2018 in follow-up in the intensive care unit. She is currently sitting up in a chair at the bedside. She is awake and alert in no acute distress. She is feeling better today as compared to yesterday. She denies any worsening shortness of breath, cough or congestion. She is maintaining good O2 saturations in the 90s on 3 L/m high flow per nasal cannula. She is working well with the incentive spirometer currently pulling approximately 750 MLS. She's been afebrile. Hemodynamically stable. Chest x- ray reveals evidence of postop changes with left basilar airspace disease and small bilateral pleural effusions. White count 11.4. Hemoglobin 8.7. Platelet count 128,000. BUN is 60 creatinine 5.60 and she remains on Lasix 40 mg IV push every 12 hours. AST 196, ALT 135, alk phos 161. Progress note dated 02/06/2018 72-year-old female postop day #6, status post four-vessel bypass grafting. She was extubated on February 01. She's doing well. She's on O2 at 3 L. Not receiving any IV fluids. She has had on-and-off atrial fibrillation. Feels much better. She does have a history of previous non-ST segment elevation myocardial infarction, severe triple-vessel coronary artery disease, ischemic cardiomyopathy, systolic heart failure, hypertension, hyperlipidemia, extrinsic ALLERGIC alveolitis, and COPD. The patient is doing well. Probably from the pulmonary perspective could be discharged out of the unit. We'll wait and see what cardiothoracic has to say. She's doing pretty well recently on her incentive spirometer. On 02/07/2018 patient seen in follow-up in the intensive care unit. She is resting in bed, she has been ambulating in the hallway, tolerating activity well. FiO2 is currently down to 3 L per nasal cannula, with O2 sat 94%. Vital signs are stable, patient in sinus rhythm on the monitor with a rate at 66 BPM. Patient's chest tubes were discontinued last week, epicardial wires were discontinued this morning. Patient denies any acute distress, her pain is controlled with oral medications, her incentive spirometry effort is 750 today. Currently not on any maintenance IV fluids, or drips. On today's lab work WBCs 12.1, hemoglobin is 8.7, INR is 1.2, sodium is 135, potassium is 4.0 chloride is 90, B1 is 80, creatinine is 5.57, liver enzymes are trending down, AST is 63, AST 73, alkaline phosphatase is 127. Today's chest x-ray was reviewed and shows basilar atelectasis, small effusions, component of volume overload, pulmonary venous hypertension and interstitial edema. Her is in place, with antiembolism stockings and SCDs. Tolerating oral intake, no acute events overnight. Anticipate transfer to selective care unit today. The patient is seen again today 02/08/2018 a follow-up on the selective care unit. She is currently sitting up at the bedside. She is awake and alert in no acute distress. She is maintaining good O2 saturations in the mid 90s on 3 L/ m per nasal cannula. Chest x-ray reveals improved aeration of the lung basis. She is working well with the incentive spirometer. She's been up ambulating with assistance. She remains on amiodarone. Currently in sinus rhythm. Plan is for LifeVest prior to discharge. Ejection fraction less than 35%.white count 11.5. Hemoglobin 8.6. Creatinine 4.90. AST 52, ALT 75.statins remain on hold. Objective - Vital Signs Vital signs: Vital Signs Temp 98.0 F 02/08/18 03:30 Pulse 72 02/08/18 07:37 Resp 18 02/08/18 03:30 BP 121/61 02/08/18 03:30 Pulse Ox 95 02/08/18 07:20 Intake & Output 02/07/18 02/08/18 02/08/18 18:59 06:59 18:59 Intake Total 722 240 Output Total 535 200 200 Balance 187 -200 40 Weight 77.6 kg Intake: Oral 722 240 Output: Drainage 15 Right Calf 15 Urine 520 200 200 Other: Voiding Method Indwelling Catheter Toilet # Voids 2 1 # Bowel Movements 0 ABP, PAP, CO, CI - Last Documented Arterial Blood Pressure 92/51 Pulmonary Artery Pressure 51/26 Cardiac Output 5.4 Cardiac Index 3.0 - Exam GENERAL EXAM: Alert, pleasant 72-year-old white female, comfortable in no apparent distress. Remains on 3 L per nasal cannula HEAD: Normocephalic/atraumatic. EYES: Normal reaction of pupils, equal size. Conjunctiva pink, sclera white. NOSE: Clear with pink turbinates. THROAT: No erythema or exudates. NECK: No masses, no JVD, no thyroid enlargement, no adenopathy. CHEST: No chest wall deformity. Symmetrical expansion. Midsternal incision is clean dry and intact and stable LUNGS: Lung sounds are positive for a few crackles at the bilateral posterior bases, worse over left posterior lower lobe CVS: Regular rate and rhythm, normal S1 and S2, no gallops, no murmurs, no rubs ABDOMEN: Soft, nontender. No hepatosplenomegaly, normal bowel sounds, no guarding or rigidity. EXTREMITIES: No clubbing, trace edema, no cyanosis, 2+ pulses and upper and lower extremities. MUSCULOSKELETAL: Muscle strength and tone normal. SPINE: No scoliosis or deformity SKIN: No rashes CENTRAL NERVOUS SYSTEM: Alert and oriented -3. No focal deficits, tone is normal in all 4 extremities. PSYCHIATRIC: Alert and oriented -3. Appropriate affect. Intact judgment and insight. - Labs CBC & Chem 7: 02/08/18 05:20 02/08/18 05:20 Labs: Abnormal Lab Results - Last 24 Hours (Table) 02/07/18 02/07/18 02/07/18 Range/Units 12:10 17:08 20:21 WBC (3.8-10.6) k/uL RBC (3.80-5.40) m/uL Hgb (11.4-16.0) gm/dL Hct (34.0-46.0) % RDW (11.5-15.5) % INR (<1.2) Sodium (137-145) mmol/L Chloride (98-107) mmol/L BUN (7-17) mg/dL Creatinine (0.52-1.04) mg/dL POC Glucose (mg/dL) 116 H 133 H 149 H (75-99) mg/dL AST (14-36) U/L ALT (9-52) U/L Total Protein (6.3-8.2) g/dL Albumin (3.5-5.0) g/dL 02/08/18 02/08/18 02/08/18 Range/Units 01:55 05:20 05:20 WBC 11.5 H (3.8-10.6) k/uL RBC 2.84 L (3.80-5.40) m/uL Hgb 8.6 L (11.4-16.0) gm/dL Hct 26.4 L (34.0-46.0) % RDW 17.0 H (11.5-15.5) % INR 1.2 H (<1.2) Sodium (137-145) mmol/L Chloride (98-107) mmol/L BUN (7-17) mg/dL Creatinine (0.52-1.04) mg/dL POC Glucose (mg/dL) 114 H (75-99) mg/dL AST (14-36) U/L ALT (9-52) U/L Total Protein (6.3-8.2) g/dL Albumin (3.5-5.0) g/dL 02/08/18 02/08/18 Range/Units 05:20 06:01 WBC (3.8-10.6) k/uL RBC (3.80-5.40) m/uL Hgb (11.4-16.0) gm/dL Hct (34.0-46.0) % RDW (11.5-15.5) % INR (<1.2) Sodium 134 L (137-145) mmol/L Chloride 91 L (98-107) mmol/L BUN 87 H* (7-17) mg/dL Creatinine 4.90 H (0.52-1.04) mg/dL POC Glucose (mg/dL) 109 H (75-99) mg/dL AST 52 H (14-36) U/L ALT 75 H (9-52) U/L Total Protein 5.8 L (6.3-8.2) g/dL Albumin 3.3 L (3.5-5.0) g/dL Assessment and Plan Assessment: Assessment: Severe triple-vessel coronary disease, status post four-vessel bypass grafting. Postoperative respiratory failure an expected outcome of the thoracic thoracotomy, with extubation on February 01. Acute non-ST segment elevation myocardial infarction Severe ischemic cardiomyopathy, ejection fraction 30-35%. Systolic congestive heart failure Benign essential hypertension Hyperlipidemia Extrinsic ALLERGIC alveolitis Mild COPD Previous tobacco history Acute renal failure current creatinine 4.90. Elevated liver enzymes, improving, statins remain on hold. Plan: The patient was seen and evaluated by Dr. Geronimo. Chest x-ray and labs were reviewed. She continues to work well of the incentive spirometer. We'll increase her activity as tolerated. We'll continue to follow and make further recommendations based on her clinical status. I, the cosigning physician, performed a history & physical examination of the patient. Lungs sounds few scattered rhonchi crackles in the posterior bases.. Maintaining good O2 saturations in the 90s on 3 L high flow nasal cannula. I discussed the assessment and plan of care with my nurse practitioner, Leonie Ness. I attest to the above note as dictated by her.
[2018-02-08 11:48] VITALS: BMI 31.3
[2018-02-08 11:49] LABS: Glucose,Whole Blood 87 mg/dL (75-99)
[2018-02-08] MEDS: CALCIUM ACETATE 667 MG CAP PO SCH ×2 (14:19→17:23)
--- NOTE | 2018-02-08 14:29 | P.PN ---
Subjective Progress Note Date: 02/08/18 Principal diagnosis: Status post bypass This is a pleasant 72-year-old female who is status post coronary artery bypass grafting surgery. She was seen and examined this morning, feeling well overall. Reaching 1000 on her incentive spirometry. Patient states that she did feel quite chilled this morning and through the night last night, she is afebrile. Continuing to be in normal sinus rhythm. Blood pressure 122/60 with a heart rate in the 60s, temperature 97.5. White blood cell count 11.5, hemoglobin of 8.6, platelet count 228. Sodium 134, potassium 3.8, BUN 87, creatinine 4.9. AST 52, ALT 75. As the liver functions are improving, we will reinitiate a statin, start the patient on Lipitor 40 mg daily. Objective - Vital Signs Vital signs: Vital Signs Temp 98.0 F 02/08/18 03:30 Pulse 72 02/08/18 07:37 Resp 18 02/08/18 03:30 BP 121/61 02/08/18 03:30 Pulse Ox 95 02/08/18 07:20 Intake & Output 02/07/18 02/08/18 02/08/18 18:59 06:59 18:59 Intake Total 722 240 Output Total 535 200 200 Balance 187 -200 40 Weight 77.6 kg 77.6 kg Intake: Oral 722 240 Output: Drainage 15 Right Calf 15 Urine 520 200 200 Other: Voiding Method Indwelling Catheter Toilet # Voids 2 1 # Bowel Movements 0 ABP, PAP, CO, CI - Last Documented Arterial Blood Pressure 92/51 Pulmonary Artery Pressure 51/26 Cardiac Output 5.4 Cardiac Index 3.0 - Exam PHYSICAL EXAMINATION: HEENT: Head is atraumatic, normocephalic. Pupils equal, round. Neck is supple. There is no elevated jugular venous pressure. HEART EXAMINATION: Heart S1 and S2 systolic murmur is heard. CHEST EXAMINATION: The circumflex clear with mild diminished air entry to the bases. ABDOMEN: Soft, nontender. Bowel sounds are heard. No organomegaly noted. EXTREMITIES: 2+ peripheral pulses with no evidence of peripheral edema and no calf tenderness noted. NEUROLOGIC patient is awake, alert and oriented -3. . - Labs CBC & Chem 7: 02/08/18 05:20 02/08/18 05:20 Labs: Abnormal Lab Results - Last 24 Hours (Table) 02/07/18 02/07/18 02/08/18 Range/Units 17:08 20:21 01:55 WBC (3.8-10.6) k/uL RBC (3.80-5.40) m/uL Hgb (11.4-16.0) gm/dL Hct (34.0-46.0) % RDW (11.5-15.5) % INR (<1.2) Sodium (137-145) mmol/L Chloride (98-107) mmol/L BUN (7-17) mg/dL Creatinine (0.52-1.04) mg/dL POC Glucose (mg/dL) 133 H 149 H 114 H (75-99) mg/dL AST (14-36) U/L ALT (9-52) U/L Total Protein (6.3-8.2) g/dL Albumin (3.5-5.0) g/dL 02/08/18 02/08/18 02/08/18 Range/Units 05:20 05:20 05:20 WBC 11.5 H (3.8-10.6) k/uL RBC 2.84 L (3.80-5.40) m/uL Hgb 8.6 L (11.4-16.0) gm/dL Hct 26.4 L (34.0-46.0) % RDW 17.0 H (11.5-15.5) % INR 1.2 H (<1.2) Sodium 134 L (137-145) mmol/L Chloride 91 L (98-107) mmol/L BUN 87 H* (7-17) mg/dL Creatinine 4.90 H (0.52-1.04) mg/dL POC Glucose (mg/dL) (75-99) mg/dL AST 52 H (14-36) U/L ALT 75 H (9-52) U/L Total Protein 5.8 L (6.3-8.2) g/dL Albumin 3.3 L (3.5-5.0) g/dL 02/08/18 Range/Units 06:01 WBC (3.8-10.6) k/uL RBC (3.80-5.40) m/uL Hgb (11.4-16.0) gm/dL Hct (34.0-46.0) % RDW (11.5-15.5) % INR (<1.2) Sodium (137-145) mmol/L Chloride (98-107) mmol/L BUN (7-17) mg/dL Creatinine (0.52-1.04) mg/dL POC Glucose (mg/dL) 109 H (75-99) mg/dL AST (14-36) U/L ALT (9-52) U/L Total Protein (6.3-8.2) g/dL Albumin (3.5-5.0) g/dL Assessment and Plan Plan: Assessment and plan #1 status post coronary artery bypass grafting surgery #2 ischemic cardiomyopathy #3 paroxysmal atrial fibrillation #4 renal failure, improving #5 elevated AST and ALT, improving Plan We will reinitiate the patient on statin, we will start her on Lipitor 40 mg now and daily. Continue to follow heart rate, continue anticoagulation because of recurrent atrial fibrillation. DNP note has been reviewed, I agree with a documented findings and plan of care. Patient was seen and examined.
--- NOTE | 2018-02-08 16:19 | P.PN ---
Subjective Patient is seen in follow-up for acute kidney injury. Creatinine peaked at 5.7 this admission and is down to 4.9 today. Patient underwent a CABG on 2017. She does have systolic CHF with ejection fraction of 30-35%. Diuretics are currently held. Denies chest pain or shortness of breath. Oral intake is good. She is nonoliguric. Hemodynamically stable. She has been ambulating. Vital signs are stable. General: The patient appeared well nourished and normally developed. HEENT: Head exam is unremarkable. Neck is without jugular venous distension. LUNGS: Lungs are clear to auscultation and percussion. Breath sounds decreased. HEART: Rate and Rhythm are regular. First and second heart sounds normal. No murmurs, rubs or gallops. ABDOMEN: Abdominal exam reveals normal bowel sounds. Non-tender and non- distended. No evidence of peritonitis. EXTREMITITES: No clubbing, cyanosis, or edema. Objective - Vital Signs Vital signs: Vital Signs Temp 98.0 F 02/08/18 03:30 Pulse 72 02/08/18 15:38 Resp 18 02/08/18 14:54 BP 120/68 02/08/18 14:54 Pulse Ox 98 02/08/18 14:54 Intake & Output 02/07/18 02/08/18 02/08/18 18:59 06:59 18:59 Intake Total 722 360 Output Total 535 200 200 Balance 187 -200 160 Weight 77.6 kg 77.6 kg Intake: Oral 722 360 Output: Drainage 15 Right Calf 15 Urine 520 200 200 Other: Voiding Method Indwelling Catheter Toilet # Voids 2 1 # Bowel Movements 0 ABP, PAP, CO, CI - Last Documented Arterial Blood Pressure 92/51 Pulmonary Artery Pressure 51/26 Cardiac Output 5.4 Cardiac Index 3.0 - Labs CBC & Chem 7: 02/08/18 05:20 02/08/18 05:20 Labs: Abnormal Lab Results - Last 24 Hours (Table) 02/07/18 02/07/18 02/08/18 Range/Units 17:08 20:21 01:55 WBC (3.8-10.6) k/uL RBC (3.80-5.40) m/uL Hgb (11.4-16.0) gm/dL Hct (34.0-46.0) % RDW (11.5-15.5) % INR (<1.2) Sodium (137-145) mmol/L Chloride (98-107) mmol/L BUN (7-17) mg/dL Creatinine (0.52-1.04) mg/dL POC Glucose (mg/dL) 133 H 149 H 114 H (75-99) mg/dL AST (14-36) U/L ALT (9-52) U/L Total Protein (6.3-8.2) g/dL Albumin (3.5-5.0) g/dL 02/08/18 02/08/18 02/08/18 Range/Units 05:20 05:20 05:20 WBC 11.5 H (3.8-10.6) k/uL RBC 2.84 L (3.80-5.40) m/uL Hgb 8.6 L (11.4-16.0) gm/dL Hct 26.4 L (34.0-46.0) % RDW 17.0 H (11.5-15.5) % INR 1.2 H (<1.2) Sodium 134 L (137-145) mmol/L Chloride 91 L (98-107) mmol/L BUN 87 H* (7-17) mg/dL Creatinine 4.90 H (0.52-1.04) mg/dL POC Glucose (mg/dL) (75-99) mg/dL AST 52 H (14-36) U/L ALT 75 H (9-52) U/L Total Protein 5.8 L (6.3-8.2) g/dL Albumin 3.3 L (3.5-5.0) g/dL 02/08/18 Range/Units 06:01 WBC (3.8-10.6) k/uL RBC (3.80-5.40) m/uL Hgb (11.4-16.0) gm/dL Hct (34.0-46.0) % RDW (11.5-15.5) % INR (<1.2) Sodium (137-145) mmol/L Chloride (98-107) mmol/L BUN (7-17) mg/dL Creatinine (0.52-1.04) mg/dL POC Glucose (mg/dL) 109 H (75-99) mg/dL AST (14-36) U/L ALT (9-52) U/L Total Protein (6.3-8.2) g/dL Albumin (3.5-5.0) g/dL Assessment and Plan Plan: Assessment: #1. Nonoliguric acute kidney injury secondary to ATN secondary to hemodynamic instability and atrial fibrillation. Creatinine peaked at 5.7 this admission and is 4.9 today. Baseline creatinine is 1. BUN is still elevated. She is not on any steroids. No active bleeding. Hemoglobin is stable. #2. Coronary artery disease status post CABG on 02/03/2018. #3. Systolic CHF with ejection fraction of 30-35%. Currently compensated. #4. Hyperphosphatemia secondary to acute kidney injury. Maintained on PhosLo. #5. Atrial fibrillation maintained on oral amiodarone and Lopressor. Cardiology following. Plan: Continue to hold diuretics for now. Encourage oral intake. Avoid nephrotoxic agents and hypotensive episodes. Repeat electrolytes in the morning. Plan for rehab tomorrow. Check iron studies.
[2018-02-08 16:48] LABS: Iron Saturation 18.4 (12.00-45.00)
[2018-02-08 16:52] LABS: Glucose,Whole Blood 141 mg/dL (75-99)
--- NOTE | 2018-02-08 17:54 | P.PN ---
Subjective Progress Note Date: 02/08/18 Progress note being dictated for Dr. Linda. Status post cardiac catheterization, triple-vessel disease. Interval history:This is a pleasant 73-year-old female patient with a past medical history significant for hypertension and dyslipidemia with no documented history of coronary artery disease or congestive heart failure presented to the hospital complaining of shortness of breath for the last 3 weeks. The patient stated that the shortness of breath was started about 3 weeks ago. Beside that she describes epigastric discomfort. She stated she developed bilateral lower extremities edema and she was seen by her primary care physician who put her on Lasix with improvement in the edema. The patient did not have any symptoms of chest pain or discomfort, dizziness or lightheadedness , or any syncope. She does have epigastric discomfort mainly. The EKG showed sinus rhythm with nonspecific changes in the inferior leads. There was also some ST and T wave abnormalities seems to be diffuse. Beside that the d-dimer came in to be abnormal and the patient is in process to have a CTA of the chest to rule out any PE. The BNP came in to be also severely abnormal and the patient was given Lasix IV in the emergency room. The first set of troponin also came in to be slightly abnormal. The patient underwent an emergent heart catheterization and that revealed severe triple-vessel coronary artery disease. She was seen and evaluated by cardiothoracic surgeon and the plan is to proceed with CABG this coming Wednesday. 01/28/2018 Patient seen and examined at bedside in ICU; family members at bedside; she denies any chest pain or shortness of breath; patient is continued on aspirin, metoprolol, Lasix and Aldactone; statins and lisinopril has been continued; echocardiogram showed impaired left ventricular function with ejection fraction of 25-30% 01/29/2018 Patient remains in ICU; sitting up in a chair and denies any chest pain or shortness of breath; overall patient seems to be doing better 01/30/2018 Patient remains in ICU and remains chest pain-free; patient relates that her swelling in both lower extremities is improved; she remains on Lasix and Aldactone Patient is scheduled for CABG in the morning 01/31/2018 Patient underwent quadruple bypass graft today currently intubated postoperatively. Pulmonary and CT surgery is following. Chest x-ray showed left lower lung atelectasis and possible postoperative changes. 02/01/2018 Patient is status post quadruple bypass graft. Patient was successfully weaned off of ventilator. Next and chest x-ray showed mild fluid overload. Otherwise patient is awake alert and lying in the bed comfortable.. Patient went to atrial fibrillation and was started on amiodarone. No fever no chills. No chest pain or worsening shortness of breath. Complete review of systems could not be apparent from the patient. 02/02/2018 Patient is more awake and alert today. Able to also simple questions. Currently converted back to sinus rhythm. Amiodarone has been changed to oral. Patient is on dopamine drip at low-dose. Continued on IV Lasix drip. Patient is being converted on aspirin, Plavix and statins. Cardiology and pulmonary is following. No fever no chills. Patient denied any worsening shortness of breath or chest pain. 02/03/2018 Patient is awake and oriented able to sit in the chair and is improving clinically and patient is maintained on Lasix drip. Off pressors support. No other acute overnight issues. Cardiology and pulmonary is following. Clinically improving. 02/04/2018 Patient is currently sitting in the chair. Part spreading in physical therapy. Still on IV Lasix and her leg swelling is improving otherwise. BUN 50 creatinine 4.7 Chest x-ray showed interval al of left pleural chest tube. Pulmonary venous hypertension and interstitial edema . Tolerating oral diet. Crestor is on hold due to elevated laryngitis which are trending down now. No complaints of chest pain. No worsening shortness of breath. No nausea vomiting or abdominal pain. 02/05/2018 Patient currently sitting in the chair comfortably. No complaints of chest pain or worsening shortness of breath. Otherwise symptomatically much improved now. Participating in physical therapy. Chest x-ray showed postoperative changes with left basilar air space disease and small bilateral pleural effusions. Patient is being continued on IV Lasix now. BUN 60 creatinine 5.6. Amiodarone has been changed to metoprolol low-dose. Patient is being followed by cardiology and nephrology and pulmonary. 02/06/2018 Patient is sitting in the chair comfortably. No fever no chills. Tolerating oral diet. Leg swelling is much improved now. Patient is being continued on Lasix otherwise. Creatinine level increased to 5.7 due to ATN. Otherwise continue on amiodarone and metoprolol. Remain on sinus rhythm. Cardiology and pulmonary is following. No other acute overnight issues. Participating in physical therapy. 02/07/2018 Coumadin initiated yesterday for paroxysmal atrial fibrillation, currently sinus rhythm. Ambulating, tolerating increase in exertion well. Awaiting transfer out to telemetry floor. Incentive spirometer up to 750. Chest x-ray reporting basilar atelectasis, small effusions, component of confinement overload, interstitial edema, pulmonary venous hypertension. Good diet intake, Blood sugars controlled. Creatinine 5.57 with diuretics currently on hold. LFTs improving. Epicardial wires discontinued this morning. 02/08/2018 currently on telemetry unit, sitting up in chair, doing well. Ambulating in hallway, tolerated exertion well. Incentive spirometer up to 1000. Diet intake improving with no nausea, no vomiting. Creatinine improving , down to 4.9. Diuretics remain on hold. Reports last bowel movement 2 days ago. LFTs improving . INR 1.2. Telemetry sinus rhythm. Objective - Vital Signs Vital signs: Vital Signs Temp 98.0 F 02/08/18 03:30 Pulse 72 02/08/18 07:37 Resp 18 02/08/18 03:30 BP 121/61 02/08/18 03:30 Pulse Ox 95 02/08/18 07:20 Intake & Output 02/07/18 02/08/18 02/08/18 18:59 06:59 18:59 Intake Total 722 240 Output Total 535 200 200 Balance 187 -200 40 Weight 77.6 kg Intake: Oral 722 240 Output: Drainage 15 Right Calf 15 Urine 520 200 200 Other: Voiding Method Indwelling Catheter Toilet # Voids 2 1 # Bowel Movements 0 ABP, PAP, CO, CI - Last Documented Arterial Blood Pressure 92/51 Pulmonary Artery Pressure 51/26 Cardiac Output 5.4 Cardiac Index 3.0 - Labs CBC & Chem 7: 02/08/18 05:20 02/08/18 05:20 Labs: Abnormal Lab Results - Last 24 Hours (Table) 02/07/18 02/07/18 02/07/18 Range/Units 12:10 17:08 20:21 WBC (3.8-10.6) k/uL RBC (3.80-5.40) m/uL Hgb (11.4-16.0) gm/dL Hct (34.0-46.0) % RDW (11.5-15.5) % INR (<1.2) Sodium (137-145) mmol/L Chloride (98-107) mmol/L BUN (7-17) mg/dL Creatinine (0.52-1.04) mg/dL POC Glucose (mg/dL) 116 H 133 H 149 H (75-99) mg/dL AST (14-36) U/L ALT (9-52) U/L Total Protein (6.3-8.2) g/dL Albumin (3.5-5.0) g/dL 02/08/18 02/08/18 02/08/18 Range/Units 01:55 05:20 05:20 WBC 11.5 H (3.8-10.6) k/uL RBC 2.84 L (3.80-5.40) m/uL Hgb 8.6 L (11.4-16.0) gm/dL Hct 26.4 L (34.0-46.0) % RDW 17.0 H (11.5-15.5) % INR 1.2 H (<1.2) Sodium (137-145) mmol/L Chloride (98-107) mmol/L BUN (7-17) mg/dL Creatinine (0.52-1.04) mg/dL POC Glucose (mg/dL) 114 H (75-99) mg/dL AST (14-36) U/L ALT (9-52) U/L Total Protein (6.3-8.2) g/dL Albumin (3.5-5.0) g/dL 02/08/18 02/08/18 Range/Units 05:20 06:01 WBC (3.8-10.6) k/uL RBC (3.80-5.40) m/uL Hgb (11.4-16.0) gm/dL Hct (34.0-46.0) % RDW (11.5-15.5) % INR (<1.2) Sodium 134 L (137-145) mmol/L Chloride 91 L (98-107) mmol/L BUN 87 H* (7-17) mg/dL Creatinine 4.90 H (0.52-1.04) mg/dL POC Glucose (mg/dL) 109 H (75-99) mg/dL AST 52 H (14-36) U/L ALT 75 H (9-52) U/L Total Protein 5.8 L (6.3-8.2) g/dL Albumin 3.3 L (3.5-5.0) g/dL Assessment and Plan Assessment: Acute non-ST elevated PA. Status post Cardiac catheterization showed triple- vessel disease. Status post quadruple bypass graft on 01/31/2018 Paroxsymal Atrial fibrillation with rapid ventricular rate. Currently on low- dose metoprolol and amiodarone, anticoagulated on Coumadin. Acute renal failure due to ATN , improving Exertional shortness of breath for 2 weeks prior to admission Acute CHF with systolic dysfunction Severe ischemic cardio myopathy Leukocytosis. Likely reactive. Hypertension hyperlipidemia Obesity DVT prophylaxis Plan: Continue on current medication regime , monitoring and symptomatic treatment. Aggressive pulmonary toileting, incentive spirometer reinforced. Increase activity as tolerated. Diuretics remain on hold as per nephrology. Iron studies in progress. Close monitoring of Accu-Cheks., Currently controlled. Avoid nephrotoxic agents with close monitoring of renal function. Anticoagulated with Coumadin, daily PT INR. The impression and plan of care has been dictated as directed. : I performed a history and examination of this patient, discussed the same with the dictator. I agree with the dictator's note ,documented as a scribe. Any additional findings or plans will be noted.
[2018-02-08] MEDS ORDERED: WARFARIN 5 MG TAB PO ONE (18:00)
[2018-02-08] MEDS ORDERED: ATORVASTATIN 40 MG TAB PO SCH (21:00)
[2018-02-08 21:22] LABS: Glucose,Whole Blood 89 mg/dL (75-99)
[2018-02-08] MEDS: SENNOSIDES-DOCUSATE SODIUM 1 EACH TAB PO SCH (21:27)
[2018-02-09 03:13] LABS: Glucose,Whole Blood 125 mg/dL (75-99)
[2018-02-09 06:01] LABS: Anisocytosis Slight; HCT 26.1 % (34.0-46.0); HGB 8.7 gm/dL (11.4-16.0); MCH 30.8 pg (25.0-35.0); MCHC 33.5 g/dL (31.0-37.0); Mean Platelet Volume 7.6; Platelet Count 264 k/uL (150-450); RBC 2.84 m/uL (3.80-5.40); RDW 16.5 % (11.5-15.5); WBC 12.4 k/uL (3.8-10.6)
[2018-02-09 06:09] LABS: Glucose,Whole Blood 102 mg/dL (75-99)
[2018-02-09 06:12] LABS: INR 1.6 (<1.2); Prothrombin Time 14.5 sec (9.0-12.0)
[2018-02-09 06:29] LABS: Albumin 3.2 g/dL (3.5-5.0); Calcium 9.5 mg/dL (8.4-10.2); Phosphorus 5.7 mg/dL (2.5-4.5); Potassium 3.6 mmol/L (3.5-5.1); Total Bilirubin 0.8 mg/dL (0.2-1.3); Total Protein 5.7 g/dL (6.3-8.2)
[2018-02-09] MEDS: HEPARIN SODIUM,PORCINE 5,000 UNIT/ML 1 ML VIAL SQ SCH ×4 (06:54→23:14)
[2018-02-09] MEDS: INSULIN ASPART 100 UNIT/ML 1 ML 10 ML VIAL SQ SCH ×4 (06:55→21:23)
[2018-02-09] MEDS: PANTOPRAZOLE 40 MG TABLET PO SCH (06:57)
[2018-02-09] MEDS: IPRATROPIUM-ALBUTEROL 3 ML NEB INHALATION SCH ×4 (07:51→19:38)
[2018-02-09] MEDS: SYMBICORT 160-4.5 MCG INHALER INHALATION SCH ×2 (07:51→19:38)
[2018-02-09] MEDS ORDERED: MD COMMUNICATION TO PHARMACY 1 EACH MISC PO PRN (08:06)
--- NOTE | 2018-02-09 08:21 | XR ---
EXAMINATION TYPE: XR chest 2V DATE OF EXAM: 02/09/2018 COMPARISON: Prior chest x-ray 02/08/2018 HISTORY: Postop cardiac surgery TECHNIQUE: Frontal and lateral views of the chest are obtained. FINDINGS: Heart remains enlarged, patient is post median sternotomy. Suspect some improvement in the interstitium, aeration. No pneumothorax or pleural effusion. There are overlying cardiac leads. Patc hy retrocardiac density again seen. Overlying artifacts noted. IMPRESSION: Cardiomegaly. Suspect some improvement in volume status. Persistent basilar atelectasis is noted.
--- NOTE | 2018-02-09 08:33 | P.PN ---
Subjective Progress Note Date: 02/09/18 Principal diagnosis: Severe ischemic cardiomyopathy with EF 25-30%, left main disease, non-ST elevation myocardial infarction, acute on chronic systolic heart failure, hypertension, hyperlipidemia, mild mitral valve regurgitation, evidence of remote old inferior wall myocardial infarction. History of gout, recent pneumonia, syncope 2 years ago, previous tobacco dependence with preoperative FEV1 65%. Obesity. POD #9 urgent coronary artery bypass grafting 4 using the left internal mammary artery to the mid left anterior descending artery, reverse saphenous vein graft from the aorta to the diagonal artery, reverse saphenous vein graft from the aorta to the first obtuse marginal artery, reverse saphenous vein graft from the aorta to the posterior descending artery. Endoscopic harvesting of the right greater saphenous vein. Intraoperative transesophageal echocardiogram and epi-aortic scanning. Intraoperative graft flow measurements using the Mohound system. Postoperative acute elevation of transaminases, an unexpected but potential outcome of surgery. Postoperative atrial fibrillation, an expected outcome of surgery. Acute kidney injury, acute tubular necrosis secondary to hemodynamic changes and hypotension, an unexpected but potential outcome of surgery. The patient is currently sitting up in the recliner in no acute distress. She denies pain, shortness of breath. States she has ambulated in the hallway. She did have an episode of atrial fibrillation with rapid ventricular response again last night, was given another IV amiodarone bolus. Objective - Vital Signs Vital signs: Vital Signs Temp 97.6 F 02/09/18 04:00 Pulse 66 02/09/18 08:01 Resp 18 02/09/18 07:51 BP 120/64 02/09/18 04:00 Pulse Ox 96 02/09/18 04:00 Intake & Output 02/08/18 02/09/18 02/09/18 18:59 06:59 18:59 Intake Total 360 310 Output Total 200 Balance 160 310 Weight 77.6 kg 80 kg Intake: Oral 360 Blood Product 310 Rc As-1 Unit 310 [id number] Output: Urine 200 Other: Voiding Method Toilet # Voids 1 # Bowel Movements 0 ABP, PAP, CO, CI - Last Documented Arterial Blood Pressure 92/51 Pulmonary Artery Pressure 51/26 Cardiac Output 5.4 Cardiac Index 3.0 - Constitutional General appearance: Present: cooperative, no acute distress, obese - Respiratory Details: Lungs sounds diminished bilaterally. Respirations even, nonlabored. Currently on 3 L nasal cannula with oxygen saturation 96%. Able to achieve 1000 mL on her incentive spirometry. Weak cough. - Cardiovascular Details: S1, S2 present. Regular rate and rhythm, currently sinus rhythm on telemetry. Sternum stable. Palpable peripheral pulses bilaterally. No edema present. No calf pain or tenderness noted. Heart hugger in place with patient demonstrating appropriate use. Antiembolism stockings, SCDs present. - Gastrointestinal Gastrointestinal Comment(s): Abdomen soft, nontender, nondistended. Active bowel sounds 4 quadrants. Tolerating diet. Positive bowel movement. - Genitourinary Genitourinary Comment(s): Patient voiding clear, yellow urine. - Integumentary Integumentary Comment(s): Skin is warm and dry with evidence of good perfusion. Anterior chest incision well approximated and covered with dry intact dressing. Right lower extremity EVH site well approximated, slightly ecchymotic. - Neurologic Neurologic: Present: CNII-XII intact - Musculoskeletal Musculoskeletal: Present: gait normal, strength equal bilaterally - Psychiatric Psychiatric: Present: A&O x's 3, appropriate affect, intact judgment & insight - Allied health notes Allied health notes reviewed: nursing - Labs CBC & Chem 7: 02/09/18 05:29 02/09/18 05:29 Labs: Abnormal Lab Results - Last 24 Hours (Table) 02/02/18 02/08/18 02/08/18 Range/Units 19:18 05:20 16:50 WBC (3.8-10.6) k/uL RBC (3.80-5.40) m/uL Hgb (11.4-16.0) gm/dL Hct (34.0-46.0) % RDW (11.5-15.5) % PT (9.0-12.0) sec INR (<1.2) Chloride (98-107) mmol/L BUN (7-17) mg/dL Creatinine (0.52-1.04) mg/dL POC Glucose (mg/dL) 141 H (75-99) mg/dL Phosphorus (2.5-4.5) mg/dL Iron 46 L (50-170) ug/dL Ferritin 496.4 H (10.0-291.0) ng/mL AST (14-36) U/L ALT (9-52) U/L Total Protein (6.3-8.2) g/dL Albumin (3.5-5.0) g/dL Crossmatch See Detail 02/09/18 02/09/18 02/09/18 Range/Units 02:03 05:29 05:29 WBC 12.4 H (3.8-10.6) k/uL RBC 2.84 L (3.80-5.40) m/uL Hgb 8.7 L (11.4-16.0) gm/dL Hct 26.1 L (34.0-46.0) % RDW 16.5 H (11.5-15.5) % PT 14.5 H (9.0-12.0) sec INR 1.6 H (<1.2) Chloride (98-107) mmol/L BUN (7-17) mg/dL Creatinine (0.52-1.04) mg/dL POC Glucose (mg/dL) 125 H (75-99) mg/dL Phosphorus (2.5-4.5) mg/dL Iron (50-170) ug/dL Ferritin (10.0-291.0) ng/mL AST (14-36) U/L ALT (9-52) U/L Total Protein (6.3-8.2) g/dL Albumin (3.5-5.0) g/dL Crossmatch 02/09/18 02/09/18 Range/Units 05:29 06:08 WBC (3.8-10.6) k/uL RBC (3.80-5.40) m/uL Hgb (11.4-16.0) gm/dL Hct (34.0-46.0) % RDW (11.5-15.5) % PT (9.0-12.0) sec INR (<1.2) Chloride 93 L (98-107) mmol/L BUN 83 H* (7-17) mg/dL Creatinine 4.01 H (0.52-1.04) mg/dL POC Glucose (mg/dL) 102 H (75-99) mg/dL Phosphorus 5.7 H (2.5-4.5) mg/dL Iron (50-170) ug/dL Ferritin (10.0-291.0) ng/mL AST 52 H (14-36) U/L ALT 65 H (9-52) U/L Total Protein 5.7 L (6.3-8.2) g/dL Albumin 3.2 L (3.5-5.0) g/dL Crossmatch - Imaging and Cardiology Chest x-ray: report reviewed, image reviewed Assessment and Plan (1) Left main coronary artery disease Current Visit: Yes Status: Chronic Code(s): I25.10 - ATHSCL HEART DISEASE OF [place] CORONARY ARTERY W/O ANG PCTRS SNOMED Code(s): 630633628 (2) Acute on chronic systolic heart failure Current Visit: Yes Status: Acute Code(s): I50.23 - ACUTE ON CHRONIC SYSTOLIC (CONGESTIVE) HEART FAILURE SNOMED Code(s): 991821195 (3) History of myocardial infarction Current Visit: No Status: Resolved Code(s): I25.2 - OLD MYOCARDIAL INFARCTION SNOMED Code(s): 809410969 (4) History of gout Current Visit: Yes Status: Chronic Code(s): Z87.39 - PERSONAL HISTORY OF DISEASES OF THE MS SYS AND CONN TISS SNOMED Code(s): 559130187 (5) Tobacco dependence in remission Current Visit: No Status: Resolved Code(s): F17.201 - NICOTINE DEPENDENCE, UNSPECIFIED, IN REMISSION SNOMED Code(s): 788761895 (6) Coronary artery disease Current Visit: Yes Status: Chronic Code(s): I25.10 - ATHSCL HEART DISEASE OF [place] CORONARY ARTERY W/O ANG PCTRS SNOMED Code(s): 63729666 (7) Hyperlipidemia Current Visit: Yes Status: Chronic Code(s): E78.5 - HYPERLIPIDEMIA, UNSPECIFIED SNOMED Code(s): 18455714 (8) Hypertension Current Visit: Yes Status: Chronic Code(s): I10 - ESSENTIAL (PRIMARY) HYPERTENSION SNOMED Code(s): 32612378 (9) Ischemic cardiomyopathy Current Visit: Yes Status: Chronic Code(s): I25.5 - ISCHEMIC CARDIOMYOPATHY SNOMED Code(s): 282116531 (10) NSTEMI (non-ST elevated myocardial infarction) Current Visit: Yes Status: Acute Code(s): I21.4 - NON-ST ELEVATION (NSTEMI) MYOCARDIAL INFARCTION SNOMED Code(s): 609316214 Plan: 1. Continue low-dose aspirin, Plavix, subcu heparin, beta saw. Will increase beta saw as tolerated. Crestor restarted. 2. Continue amiodarone for A. fib prophylaxis. Decrease to 200 mg twice a day on February 10 for 1 week, then decrease to 200 mg daily. 3. Continue Coumadin for anticoagulation. Dosing daily based on PT/INR. Will discontinue Plavix once INR is therapeutic. 4. Wean oxygen as tolerated. Encourage incentive spirometry use 10 times every hour. 5. Lasix discontinued, managed by nephrology. Avoid nephrotoxic agents. Encourage oral intake. 6. Repeat echocardiogram demonstrated ischemic cardiomyopathy with ejection fraction 30-35%. Patient is a candidate for LifeVest at discharge. Will defer to cardiology for placement. 7. Will monitor daily labs and x-rays. 8. GI/DVT prophylaxis. 9. Diabetic management per primary care physician. 10. Increase activity, ambulate as tolerated. PT/OT/cardiac rehab following. 11. Discharge planning in progress. Anticipate discharge today to inpatient rehab if insurance authorization is approved and bed is available. Will need cardiology, nephrology, pulmonology to follow at rehab. Time with Patient: Greater than 30
[2018-02-09] MEDS: METOPROLOL TARTRATE 12.5 MG TAB PO SCH ×2 (09:11→21:20)
[2018-02-09] MEDS: AMIODARONE 200 MG TAB PO SCH ×2 (09:12→21:20)
[2018-02-09] MEDS: CLOPIDOGREL 75 MG TAB PO SCH (09:12)
[2018-02-09] MEDS: ASPIRIN 81 MG PO SCH (09:12)
--- NOTE | 2018-02-09 09:57 | P.PN ---
Subjective Patient is seen in follow-up for acute kidney injury. Creatinine peaked at 5.7 this admission and is down to 4.01 today. Patient underwent a CABG on 2017. She does have systolic CHF with ejection fraction of 30-35%. Diuretics are currently held. Denies chest pain or shortness of breath. Oral intake is good. She is nonoliguric. Hemodynamically stable. She has been ambulating. No active complaints at this time. Vital signs are stable. General: The patient appeared well nourished and normally developed. HEENT: Head exam is unremarkable. Neck is without jugular venous distension. LUNGS: Lungs are clear to auscultation and percussion. Breath sounds decreased. HEART: Rate and Rhythm are regular. First and second heart sounds normal. No murmurs, rubs or gallops. ABDOMEN: Abdominal exam reveals normal bowel sounds. Non-tender and non- distended. No evidence of peritonitis. EXTREMITITES: No clubbing, cyanosis, or edema. Objective - Vital Signs Vital signs: Vital Signs Temp 96.8 F L 02/09/18 09:07 Pulse 70 02/09/18 09:08 Resp 18 02/09/18 09:08 BP 126/63 02/09/18 09:07 Pulse Ox 94 L 02/09/18 09:07 Intake & Output 02/08/18 02/09/18 02/09/18 18:59 06:59 18:59 Intake Total 360 490 Output Total 200 Balance 160 490 Weight 77.6 kg 80 kg Intake: Oral 360 180 Blood Product 310 Rc As-1 Unit 310 [id number] Output: Urine 200 Other: Voiding Method Toilet Toilet # Voids 1 # Bowel Movements 0 ABP, PAP, CO, CI - Last Documented Arterial Blood Pressure 92/51 Pulmonary Artery Pressure 51/26 Cardiac Output 5.4 Cardiac Index 3.0 - Labs CBC & Chem 7: 02/09/18 05:29 02/09/18 05:29 Labs: Abnormal Lab Results - Last 24 Hours (Table) 02/02/18 02/08/18 02/08/18 Range/Units 19:18 05:20 16:50 WBC (3.8-10.6) k/uL RBC (3.80-5.40) m/uL Hgb (11.4-16.0) gm/dL Hct (34.0-46.0) % RDW (11.5-15.5) % PT (9.0-12.0) sec INR (<1.2) Chloride (98-107) mmol/L BUN (7-17) mg/dL Creatinine (0.52-1.04) mg/dL POC Glucose (mg/dL) 141 H (75-99) mg/dL Phosphorus (2.5-4.5) mg/dL Iron 46 L (50-170) ug/dL Ferritin 496.4 H (10.0-291.0) ng/mL AST (14-36) U/L ALT (9-52) U/L Total Protein (6.3-8.2) g/dL Albumin (3.5-5.0) g/dL Crossmatch See Detail 02/09/18 02/09/18 02/09/18 Range/Units 02:03 05:29 05:29 WBC 12.4 H (3.8-10.6) k/uL RBC 2.84 L (3.80-5.40) m/uL Hgb 8.7 L (11.4-16.0) gm/dL Hct 26.1 L (34.0-46.0) % RDW 16.5 H (11.5-15.5) % PT 14.5 H (9.0-12.0) sec INR 1.6 H (<1.2) Chloride (98-107) mmol/L BUN (7-17) mg/dL Creatinine (0.52-1.04) mg/dL POC Glucose (mg/dL) 125 H (75-99) mg/dL Phosphorus (2.5-4.5) mg/dL Iron (50-170) ug/dL Ferritin (10.0-291.0) ng/mL AST (14-36) U/L ALT (9-52) U/L Total Protein (6.3-8.2) g/dL Albumin (3.5-5.0) g/dL Crossmatch 02/09/18 02/09/18 Range/Units 05:29 06:08 WBC (3.8-10.6) k/uL RBC (3.80-5.40) m/uL Hgb (11.4-16.0) gm/dL Hct (34.0-46.0) % RDW (11.5-15.5) % PT (9.0-12.0) sec INR (<1.2) Chloride 93 L (98-107) mmol/L BUN 83 H* (7-17) mg/dL Creatinine 4.01 H (0.52-1.04) mg/dL POC Glucose (mg/dL) 102 H (75-99) mg/dL Phosphorus 5.7 H (2.5-4.5) mg/dL Iron (50-170) ug/dL Ferritin (10.0-291.0) ng/mL AST 52 H (14-36) U/L ALT 65 H (9-52) U/L Total Protein 5.7 L (6.3-8.2) g/dL Albumin 3.2 L (3.5-5.0) g/dL Crossmatch Assessment and Plan Plan: Assessment: #1. Nonoliguric acute kidney injury secondary to ATN secondary to hemodynamic instability and atrial fibrillation. Creatinine peaked at 5.7 this admission and is 4.01 today. Baseline creatinine is 1. BUN is still elevated. She is not on any steroids. No active bleeding. Hemoglobin is stable. #2. Coronary artery disease status post CABG on 02/03/2018. #3. Systolic CHF with ejection fraction of 30-35%. Currently compensated. #4. Hyperphosphatemia secondary to acute kidney injury. Maintained on PhosLo. Improving. #5. Atrial fibrillation maintained on oral amiodarone and Lopressor. Cardiology following. #6. Anemia. Iron deficiency noted. Plan: Continue to hold diuretics for now. Encourage oral intake. Avoid nephrotoxic agents and hypotensive episodes. Repeat electrolytes in the morning. Plan for inpatient rehab today. Ferrlecit 125 mg IV daily for 3 days. First dose today.
--- NOTE | 2018-02-09 10:28 | P.VSCSTY ---
Greater Saphenous Vein Mapping This is bilateral lower extremity greater saphenous vein mapping. Date of service 01/28/2018 Vein quality and ultrasound appearance no wall changes or intraluminal thrombus are seen. Vein size groin right 7 x 7 groin left 7.2 x 6.4 High thigh right 4.3 x 4.6 high thigh left 4.1 x 4.7 Mid thigh right 4.0 x 3.8 mid thigh left 3.4 x 4.0 Above-knee right 4.0 x 3.9 above- knee left 3.5 x 3.7 Below knee right 2.9 x 3.3 below-knee left to 2.2 x 2.4 Mid calf right to 2.2 x 2.6 mid calf left 1.8 x 2.0 Ankle right 1.9 x 2.3 ankle left to 0.2 x 2.5 Impression usable bilateral greater saphenous vein. Lower legs a bit small.
[2018-02-09] MEDS ORDERED: POTASSIUM CHLORIDE ER 20 MEQ TAB.ER PO STA (10:30)
--- NOTE | 2018-02-09 10:52 | P.ARTDOP ---
Arterial Doppler LOWER EXTREMITY ARTERIAL DOPPLER: DATE OF SERVICE: 01/28/2018 Reason for study: Pre-CABG. Doppler waveforms: Multiphasic bilaterally throughout. Pulse volume recording: []. Pressure gradients: Moderate gradient on the right above the ankle. Mild gradient on the left above ankle.. Ankle-brachial indices: 0.72 on the right and 0.83 on the left.. Toe pressures: [] on the right, [] on the left Impression: Mild bilateral SFA disease. Perfusion probably adequate for healing..
[2018-02-09] MEDS: SODIUM FERRIC GLUCONAT-SUCROSE 125 MG in SODIUM CHLORIDE 0.9% 100 ML IVPB SCH (10:57)
[2018-02-09 11:38] LABS: Glucose,Whole Blood 93 mg/dL (75-99)
[2018-02-09] MEDS: CALCIUM ACETATE 667 MG CAP PO SCH ×2 (12:07→16:57)
--- NOTE | 2018-02-09 12:38 | P.PN ---
Subjective Progress Note Date: 02/09/18 Principal diagnosis: Severe triple-vessel coronary artery disease status post coronary artery bypass grafting 4. This is a 72-year-old female with multiple medical problems including hypertension hyperlipidemia extrinsic ALLERGIC alveolitis as well as coronary artery disease. The patient's going to the operating room today for a bypass grafting. She's been seen by my partner for the last couple of days. She did have a CT angiogram that was negative for pulmonary embolism. When she was seen yesterday, she was doing well and she was asymptomatic. No chest pain no shortness of breath and difficulty breathing. No coughing or wheezing. Labs were in order. This morning, prior to surgery the patient still doing well. No major issues or problems. 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 Progress note dated 02/01/2018 This is a 72-year-old female who is postop day #1 status post four-vessel bypass grafting. The patient's currently on the mechanical ventilator. Her current vent settings are the assist control mode rate of 24, tidal volume of 400 she is on a FiO2 50% with a PEEP of 5. Arterial blood gases show a PaO2 of 85 a PaCO2 40 and a pH of 7.35. The patient is currently on propofol at 20 mics per kilogram per minute, Primacor at 0.2 mics per kilogram per minute, insulin drip at 2 units per hour, and Cleviprex at 2 mg an hour. The patient's IV is lactated Ringer's at 50 mL an hour. According to cardiothoracic surgical physician assistant , the patient can be weaned at this time. Chest x-ray show some mild fluid overload. The patient otherwise is stable. Even on a small amount of propofol , her mental status is reasonable. We'll wean that off and start the process. She has a history of non-ST segment elevation myocardial infarction, severe triple-vessel coronary artery disease, ischemic cardiomyopathy, systolic heart failure, hypertension, hyperlipidemia, extrinsic ALLERGIC alveolitis and COPD from previous heavy tobacco use. Progress note dated 02/02/2018 72-year-old female postop day #2, status post four-vessel bypass grafting. She was extubated yesterday on February 01. Currently, she is on a nonrebreather mask. In addition, she is on dopamine at 2 mcg/kg/m, a Lasix drip at 10 mg an hour, amiodarone at 0.5 mg/m and lactated Ringer's at 20 mL an hour. Chest x- ray shows just some mild fluid overload. The patient otherwise looks relatively weak. The patient seemed a little sleepy and lethargic. Does not really take in deep breaths. Chest x-ray though does not look horrible. 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 The patient's oxygen requirements have gone up since extubation, initially she was on 6 L by nasal cannula and is now on a nonrebreather. She may benefit from BiPAP therapy to help rest her. On 02/03/2018 patient is seen in follow-up in intensive care unit. She is awake , alert, seems a bit more upbeat and conversant compared to yesterday's exam. Currently down to 4 L per nasal cannula, and O2 sat is at 91%. Patient is afebrile, hemodynamically stable, patient went back into atrial fibrillation last night, and currently her heart rate is slightly tachycardic up to 109 BPM. Patient's IV amiodarone has been converted to oral amiodarone 200 mg by mouth twice a day. Maintenance IV fluids are LR at a rate of 10 ML per hour, and Lasix drip is currently at 15 mg per hour. Today's chest x-ray shows surgical physician assistant interstitial pattern with bilateral infiltrates and small effusion, consistent with CHF or fluid overload. Today's lab work shows to be BCR 14.6, hemoglobin is 8.5, sodium is 138, potassium 5.0, carbon dioxide is 21, BUN is 40, and creatinine is 3.67. Patient's renal profile has worsened. Patient is compliant with her incentive spirometry, is able to achieve 500 today, we'll continue to encourage breathing and coughing and obvious use. Her pain is reasonably controlled. Midsternal incision is clean dry and intact, patient has a left pleural chest tube to low continuous wall suction at -27 m of water. Small amount of thin serosanguineous drainage with 100 mL output in the last 8 hours, and 190 mL output in the last 24 hours. Cordova catheter is in place, draining clear parth urine, urine output is marginal, averaging about 30 ML per hour. As a ELICEO drain in the right lower leg with thin serosanguineous drainage, bilateral legs are Ervin wrapped. On 02/04/2018 patient is seen in follow-up in the intensive care unit. She is sitting up in the recliner, tolerating activity well. She did ambulate yesterday. Incentive spirometry effort is 750 today, FiO2 is currently down to 3 L per nasal cannula. Hemodynamically stable, afebrile. Today's lab work shows a WBC of 12.6, hemoglobin 8.5, sodium is 136, potassium is 5.2, BUN is 50 , creatinine is 4.70. Further worsening of the renal function. Patient maintenance IVs LR at the rate of 10 ML per hour, Lasix drip at 20 mg per hour. Today's chest x-ray shows interval removal of left pleural chest tube, pulmonary venous hypertension and interstitial edema, volume overload. Patient is in sinus rhythm. Liver enzymes are trending down, patient's Crestor remains on hold The patient is seen again today 02/05/2018 in follow-up in the intensive care unit. She is currently sitting up in a chair at the bedside. She is awake and alert in no acute distress. She is feeling better today as compared to yesterday. She denies any worsening shortness of breath, cough or congestion. She is maintaining good O2 saturations in the 90s on 3 L/m high flow per nasal cannula. She is working well with the incentive spirometer currently pulling approximately 750 MLS. She's been afebrile. Hemodynamically stable. Chest x- ray reveals evidence of postop changes with left basilar airspace disease and small bilateral pleural effusions. White count 11.4. Hemoglobin 8.7. Platelet count 128,000. BUN is 60 creatinine 5.60 and she remains on Lasix 40 mg IV push every 12 hours. AST 196, ALT 135, alk phos 161. Progress note dated 02/06/2018 72-year-old female postop day #6, status post four-vessel bypass grafting. She was extubated on February 01. She's doing well. She's on O2 at 3 L. Not receiving any IV fluids. She has had on-and-off atrial fibrillation. Feels much better. She does have a history of previous non-ST segment elevation myocardial infarction, severe triple-vessel coronary artery disease, ischemic cardiomyopathy, systolic heart failure, hypertension, hyperlipidemia, extrinsic ALLERGIC alveolitis, and COPD. The patient is doing well. Probably from the pulmonary perspective could be discharged out of the unit. We'll wait and see what cardiothoracic has to say. She's doing pretty well recently on her incentive spirometer. On 02/07/2018 patient seen in follow-up in the intensive care unit. She is resting in bed, she has been ambulating in the hallway, tolerating activity well. FiO2 is currently down to 3 L per nasal cannula, with O2 sat 94%. Vital signs are stable, patient in sinus rhythm on the monitor with a rate at 66 BPM. Patient's chest tubes were discontinued last week, epicardial wires were discontinued this morning. Patient denies any acute distress, her pain is controlled with oral medications, her incentive spirometry effort is 750 today. Currently not on any maintenance IV fluids, or drips. On today's lab work WBCs 12.1, hemoglobin is 8.7, INR is 1.2, sodium is 135, potassium is 4.0 chloride is 90, B1 is 80, creatinine is 5.57, liver enzymes are trending down, AST is 63, AST 73, alkaline phosphatase is 127. Today's chest x-ray was reviewed and shows basilar atelectasis, small effusions, component of volume overload, pulmonary venous hypertension and interstitial edema. Her is in place, with antiembolism stockings and SCDs. Tolerating oral intake, no acute events overnight. Anticipate transfer to selective care unit today. The patient is seen again today 02/08/2018 a follow-up on the selective care unit. She is currently sitting up at the bedside. She is awake and alert in no acute distress. She is maintaining good O2 saturations in the mid 90s on 3 L/ m per nasal cannula. Chest x-ray reveals improved aeration of the lung basis. She is working well with the incentive spirometer. She's been up ambulating with assistance. She remains on amiodarone. Currently in sinus rhythm. Plan is for LifeVest prior to discharge. Ejection fraction less than 35%. White count 11.5. Hemoglobin 8.6. Creatinine 4.90. AST 52, ALT 75. Statins remain on hold. The patient is seen again today 02/09/2018 in follow-up on the selective care unit. She is awake and alert in no acute distress. She denies any shortness of breath, cough or congestion. No chills or night sweats. She is maintaining O2 saturations in the 90s on room air. She's been afebrile. Hemodynamically stable. Today's chest x-ray shows cardiomegaly with improvement in her volume status. There is persistent basilar atelectasis noted. She is working well with the incentive spirometer. She's been up ambulating in the hallway without any acute respiratory distress. White count 12.4. Hemoglobin 8.7. INR 1.6. Creatinine 4.01. AST 52, ALT 65. Objective - Vital Signs Vital signs: Vital Signs Temp 98.0 F 02/09/18 11:47 Pulse 70 02/09/18 11:51 Resp 18 02/09/18 11:47 BP 116/59 02/09/18 11:47 Pulse Ox 92 L 02/09/18 11:47 Intake & Output 02/08/18 02/09/18 02/09/18 18:59 06:59 18:59 Intake Total 360 490 Output Total 200 Balance 160 490 Weight 77.6 kg 80 kg Intake: Oral 360 180 Blood Product 310 Rc As-1 Unit 310 [id number] Output: Urine 200 Other: Voiding Method Toilet Toilet # Voids 1 # Bowel Movements 0 ABP, PAP, CO, CI - Last Documented Arterial Blood Pressure 92/51 Pulmonary Artery Pressure 51/26 Cardiac Output 5.4 Cardiac Index 3.0 - Exam GENERAL EXAM: Alert, pleasant 72-year-old white female, comfortable in no apparent distress. HEAD: Normocephalic/atraumatic. EYES: Normal reaction of pupils, equal size. Conjunctiva pink, sclera white. NOSE: Clear with pink turbinates. THROAT: No erythema or exudates. NECK: No masses, no JVD, no thyroid enlargement, no adenopathy. CHEST: Symmetrical expansion. Midsternal incision is clean dry and intact and stable LUNGS: Lung sounds are positive for a few crackles at the bilateral posterior bases CVS: Regular rate and rhythm, normal S1 and S2, no gallops, no murmurs, no rubs ABDOMEN: Soft, nontender. No hepatosplenomegaly, normal bowel sounds, no guarding or rigidity. EXTREMITIES: No clubbing, trace edema, no cyanosis, 2+ pulses and upper and lower extremities. MUSCULOSKELETAL: Muscle strength and tone normal. SPINE: No scoliosis or deformity SKIN: No rashes CENTRAL NERVOUS SYSTEM: Alert and oriented -3. No focal deficits, tone is normal in all 4 extremities. PSYCHIATRIC: Alert and oriented -3. Appropriate affect. Intact judgment and insight. - Labs CBC & Chem 7: 02/09/18 05:29 02/09/18 05:29 Labs: Abnormal Lab Results - Last 24 Hours (Table) 02/02/18 02/08/18 02/08/18 Range/Units 19:18 05:20 16:50 WBC (3.8-10.6) k/uL RBC (3.80-5.40) m/uL Hgb (11.4-16.0) gm/dL Hct (34.0-46.0) % RDW (11.5-15.5) % PT (9.0-12.0) sec INR (<1.2) Chloride (98-107) mmol/L BUN (7-17) mg/dL Creatinine (0.52-1.04) mg/dL POC Glucose (mg/dL) 141 H (75-99) mg/dL Phosphorus (2.5-4.5) mg/dL Iron 46 L (50-170) ug/dL Ferritin 496.4 H (10.0-291.0) ng/mL AST (14-36) U/L ALT (9-52) U/L Total Protein (6.3-8.2) g/dL Albumin (3.5-5.0) g/dL Crossmatch See Detail 02/09/18 02/09/18 02/09/18 Range/Units 02:03 05:29 05:29 WBC 12.4 H (3.8-10.6) k/uL RBC 2.84 L (3.80-5.40) m/uL Hgb 8.7 L (11.4-16.0) gm/dL Hct 26.1 L (34.0-46.0) % RDW 16.5 H (11.5-15.5) % PT 14.5 H (9.0-12.0) sec INR 1.6 H (<1.2) Chloride (98-107) mmol/L BUN (7-17) mg/dL Creatinine (0.52-1.04) mg/dL POC Glucose (mg/dL) 125 H (75-99) mg/dL Phosphorus (2.5-4.5) mg/dL Iron (50-170) ug/dL Ferritin (10.0-291.0) ng/mL AST (14-36) U/L ALT (9-52) U/L Total Protein (6.3-8.2) g/dL Albumin (3.5-5.0) g/dL Crossmatch 02/09/18 02/09/18 Range/Units 05:29 06:08 WBC (3.8-10.6) k/uL RBC (3.80-5.40) m/uL Hgb (11.4-16.0) gm/dL Hct (34.0-46.0) % RDW (11.5-15.5) % PT (9.0-12.0) sec INR (<1.2) Chloride 93 L (98-107) mmol/L BUN 83 H* (7-17) mg/dL Creatinine 4.01 H (0.52-1.04) mg/dL POC Glucose (mg/dL) 102 H (75-99) mg/dL Phosphorus 5.7 H (2.5-4.5) mg/dL Iron (50-170) ug/dL Ferritin (10.0-291.0) ng/mL AST 52 H (14-36) U/L ALT 65 H (9-52) U/L Total Protein 5.7 L (6.3-8.2) g/dL Albumin 3.2 L (3.5-5.0) g/dL Crossmatch Assessment and Plan Assessment: Assessment: Severe triple-vessel coronary disease, status post four-vessel bypass grafting. Postoperative respiratory failure an expected outcome of the thoracic thoracotomy, with extubation on February 01. Acute non-ST segment elevation myocardial infarction Severe ischemic cardiomyopathy, ejection fraction 30-35%. Systolic congestive heart failure Benign essential hypertension Hyperlipidemia Extrinsic ALLERGIC alveolitis Mild COPD Previous tobacco history Acute renal failure current creatinine 4.90. Elevated liver enzymes, improving, statins remain on hold. Plan: The patient was seen and evaluated by Dr. Geronimo. Chest x-ray and labs were reviewed. She continues to work well of the incentive spirometer. She's been up ambulating in the [place]ham without any respiratory distress. The plan is for inpatient rehabilitation, possibly today. We'll continue to follow and make further recommendations based on her clinical status. I, the cosigning physician, performed a history & physical examination of the patient. Lungs sounds few scattered rhonchi crackles in the posterior bases.. Maintaining good O2 saturations in the 90s on room air. I discussed the assessment and plan of care with my nurse practitioner, Leonie Ness. I attest to the above note as dictated by her.
--- NOTE | 2018-02-09 15:46 | P.PN ---
Subjective Progress Note Date: 02/09/18 Principal diagnosis: Status post bypass This is a pleasant 72-year-old female who is status post coronary artery bypass grafting surgery. She was seen and examined this morning, feeling well overall. Reaching 1000 on her incentive spirometry. Patient states that she did feel quite chilled this morning and through the night last night, she is afebrile. Continuing to be in normal sinus rhythm. Blood pressure 122/60 with a heart rate in the 60s, temperature 97.5. White blood cell count 11.5, hemoglobin of 8.6, platelet count 228. Sodium 134, potassium 3.8, BUN 87, creatinine 4.9. AST 52, ALT 75. As the liver functions are improving, we will reinitiate a statin, start the patient on Lipitor 40 mg daily. 02/09/2018 Patient seen and examined this morning, dressing well overall. She actually is intolerant to Lipitor, but she is able to take Crestor which will be initiated. , Doing well on her incentive spirometry. Objective - Vital Signs Vital signs: Vital Signs Temp 98.0 F 02/09/18 11:47 Pulse 68 02/09/18 15:18 Resp 18 02/09/18 15:18 BP 116/59 02/09/18 11:47 Pulse Ox 92 L 02/09/18 11:47 Intake & Output 02/08/18 02/09/18 02/09/18 18:59 06:59 18:59 Intake Total 360 730 Output Total 200 Balance 160 730 Weight 77.6 kg 80 kg Intake: Oral 360 420 Blood Product 310 Rc As-1 Unit 310 [id number] Output: Urine 200 Other: Voiding Method Toilet Toilet # Voids 1 # Bowel Movements 0 ABP, PAP, CO, CI - Last Documented Arterial Blood Pressure 92/51 Pulmonary Artery Pressure 51/26 Cardiac Output 5.4 Cardiac Index 3.0 - Exam PHYSICAL EXAMINATION: HEENT: Head is atraumatic, normocephalic. Pupils equal, round. Neck is supple. There is no elevated jugular venous pressure. HEART EXAMINATION: Heart S1 and S2 systolic murmur is heard. CHEST EXAMINATION: The circumflex clear with mild diminished air entry to the bases. ABDOMEN: Soft, nontender. Bowel sounds are heard. No organomegaly noted. EXTREMITIES: 2+ peripheral pulses with no evidence of peripheral edema and no calf tenderness noted. NEUROLOGIC patient is awake, alert and oriented -3. . - Labs CBC & Chem 7: 02/09/18 05:29 02/09/18 05:29 Labs: Abnormal Lab Results - Last 24 Hours (Table) 02/02/18 02/08/18 02/08/18 Range/Units 19:18 05:20 16:50 WBC (3.8-10.6) k/uL RBC (3.80-5.40) m/uL Hgb (11.4-16.0) gm/dL Hct (34.0-46.0) % RDW (11.5-15.5) % PT (9.0-12.0) sec INR (<1.2) Chloride (98-107) mmol/L BUN (7-17) mg/dL Creatinine (0.52-1.04) mg/dL POC Glucose (mg/dL) 141 H (75-99) mg/dL Phosphorus (2.5-4.5) mg/dL Iron 46 L (50-170) ug/dL Ferritin 496.4 H (10.0-291.0) ng/mL AST (14-36) U/L ALT (9-52) U/L Total Protein (6.3-8.2) g/dL Albumin (3.5-5.0) g/dL Crossmatch See Detail 02/09/18 02/09/18 02/09/18 Range/Units 02:03 05:29 05:29 WBC 12.4 H (3.8-10.6) k/uL RBC 2.84 L (3.80-5.40) m/uL Hgb 8.7 L (11.4-16.0) gm/dL Hct 26.1 L (34.0-46.0) % RDW 16.5 H (11.5-15.5) % PT 14.5 H (9.0-12.0) sec INR 1.6 H (<1.2) Chloride (98-107) mmol/L BUN (7-17) mg/dL Creatinine (0.52-1.04) mg/dL POC Glucose (mg/dL) 125 H (75-99) mg/dL Phosphorus (2.5-4.5) mg/dL Iron (50-170) ug/dL Ferritin (10.0-291.0) ng/mL AST (14-36) U/L ALT (9-52) U/L Total Protein (6.3-8.2) g/dL Albumin (3.5-5.0) g/dL Crossmatch 02/09/18 02/09/18 Range/Units 05:29 06:08 WBC (3.8-10.6) k/uL RBC (3.80-5.40) m/uL Hgb (11.4-16.0) gm/dL Hct (34.0-46.0) % RDW (11.5-15.5) % PT (9.0-12.0) sec INR (<1.2) Chloride 93 L (98-107) mmol/L BUN 83 H* (7-17) mg/dL Creatinine 4.01 H (0.52-1.04) mg/dL POC Glucose (mg/dL) 102 H (75-99) mg/dL Phosphorus 5.7 H (2.5-4.5) mg/dL Iron (50-170) ug/dL Ferritin (10.0-291.0) ng/mL AST 52 H (14-36) U/L ALT 65 H (9-52) U/L Total Protein 5.7 L (6.3-8.2) g/dL Albumin 3.2 L (3.5-5.0) g/dL Crossmatch Assessment and Plan Plan: Assessment and plan #1 status post coronary artery bypass grafting surgery #2 ischemic cardiomyopathy #3 paroxysmal atrial fibrillation #4 renal failure, improving #5 elevated AST and ALT, improving Plan Cardiology's perspective, we'll continue the patient on her current medications. She has been encouraged regarding the use of incentive spirometry DNP note has been reviewed, I agree with a documented findings and plan of care. Patient was seen and examined.
[2018-02-09 16:34] LABS: Glucose,Whole Blood 89 mg/dL (75-99)
--- NOTE | 2018-02-09 17:11 | P.PN ---
Subjective Progress Note Date: 02/09/18 Progress note being dictated for Dr. Duarte. Status post cardiac catheterization, triple-vessel disease. Interval history:This is a pleasant 73-year-old female patient with a past medical history significant for hypertension and dyslipidemia with no documented history of coronary artery disease or congestive heart failure presented to the hospital complaining of shortness of breath for the last 3 weeks. The patient stated that the shortness of breath was started about 3 weeks ago. Beside that she describes epigastric discomfort. She stated she developed bilateral lower extremities edema and she was seen by her primary care physician who put her on Lasix with improvement in the edema. The patient did not have any symptoms of chest pain or discomfort, dizziness or lightheadedness , or any syncope. She does have epigastric discomfort mainly. The EKG showed sinus rhythm with nonspecific changes in the inferior leads. There was also some ST and T wave abnormalities seems to be diffuse. Beside that the d-dimer came in to be abnormal and the patient is in process to have a CTA of the chest to rule out any PE. The BNP came in to be also severely abnormal and the patient was given Lasix IV in the emergency room. The first set of troponin also came in to be slightly abnormal. The patient underwent an emergent heart catheterization and that revealed severe triple-vessel coronary artery disease. She was seen and evaluated by cardiothoracic surgeon and the plan is to proceed with CABG this coming Wednesday. 01/28/2018 Patient seen and examined at bedside in ICU; family members at bedside; she denies any chest pain or shortness of breath; patient is continued on aspirin, metoprolol, Lasix and Aldactone; statins and lisinopril has been continued; echocardiogram showed impaired left ventricular function with ejection fraction of 25-30% 01/29/2018 Patient remains in ICU; sitting up in a chair and denies any chest pain or shortness of breath; overall patient seems to be doing better 01/30/2018 Patient remains in ICU and remains chest pain-free; patient relates that her swelling in both lower extremities is improved; she remains on Lasix and Aldactone Patient is scheduled for CABG in the morning 01/31/2018 Patient underwent quadruple bypass graft today currently intubated postoperatively. Pulmonary and CT surgery is following. Chest x-ray showed left lower lung atelectasis and possible postoperative changes. 02/01/2018 Patient is status post quadruple bypass graft. Patient was successfully weaned off of ventilator. Next and chest x-ray showed mild fluid overload. Otherwise patient is awake alert and lying in the bed comfortable.. Patient went to atrial fibrillation and was started on amiodarone. No fever no chills. No chest pain or worsening shortness of breath. Complete review of systems could not be apparent from the patient. 02/02/2018 Patient is more awake and alert today. Able to also simple questions. Currently converted back to sinus rhythm. Amiodarone has been changed to oral. Patient is on dopamine drip at low-dose. Continued on IV Lasix drip. Patient is being converted on aspirin, Plavix and statins. Cardiology and pulmonary is following. No fever no chills. Patient denied any worsening shortness of breath or chest pain. 02/03/2018 Patient is awake and oriented able to sit in the chair and is improving clinically and patient is maintained on Lasix drip. Off pressors support. No other acute overnight issues. Cardiology and pulmonary is following. Clinically improving. 02/04/2018 Patient is currently sitting in the chair. Part spreading in physical therapy. Still on IV Lasix and her leg swelling is improving otherwise. BUN 50 creatinine 4.7 Chest x-ray showed interval al of left pleural chest tube. Pulmonary venous hypertension and interstitial edema . Tolerating oral diet. Crestor is on hold due to elevated laryngitis which are trending down now. No complaints of chest pain. No worsening shortness of breath. No nausea vomiting or abdominal pain. 02/05/2018 Patient currently sitting in the chair comfortably. No complaints of chest pain or worsening shortness of breath. Otherwise symptomatically much improved now. Participating in physical therapy. Chest x-ray showed postoperative changes with left basilar air space disease and small bilateral pleural effusions. Patient is being continued on IV Lasix now. BUN 60 creatinine 5.6. Amiodarone has been changed to metoprolol low-dose. Patient is being followed by cardiology and nephrology and pulmonary. 02/06/2018 Patient is sitting in the chair comfortably. No fever no chills. Tolerating oral diet. Leg swelling is much improved now. Patient is being continued on Lasix otherwise. Creatinine level increased to 5.7 due to ATN. Otherwise continue on amiodarone and metoprolol. Remain on sinus rhythm. Cardiology and pulmonary is following. No other acute overnight issues. Participating in physical therapy. 02/07/2018 Coumadin initiated yesterday for paroxysmal atrial fibrillation, currently sinus rhythm. Ambulating, tolerating increase in exertion well. Awaiting transfer out to telemetry floor. Incentive spirometer up to 750. Chest x-ray reporting basilar atelectasis, small effusions, component of confinement overload, interstitial edema, pulmonary venous hypertension. Good diet intake, Blood sugars controlled. Creatinine 5.57 with diuretics currently on hold. LFTs improving. Epicardial wires discontinued this morning. 02/08/2018 currently on telemetry unit, sitting up in chair, doing well. Ambulating in hallway, tolerated exertion well. Incentive spirometer up to 1000. Diet intake improving with no nausea, no vomiting. Creatinine improving , down to 4.9. Diuretics remain on hold. Reports last bowel movement 2 days ago. LFTs improving . INR 1.2. Telemetry sinus rhythm. 02/09/2018 no overnight events, [facility] Diuretics on hold, creatinine down to 4.01. Receiving IV iron for iron deficient anemia. Chest x-ray reporting improvement in volume status with persistent basilar atelectasis. Ambulating in hallway, tolerating exertion well. INR 1.6. Afebrile. Objective - Vital Signs Vital signs: Vital Signs Temp 97.8 F 02/09/18 16:00 Pulse 72 02/09/18 16:15 Resp 18 02/09/18 16:00 BP 135/63 02/09/18 16:00 Pulse Ox 93 L 02/09/18 16:00 Intake & Output 02/08/18 02/09/18 02/09/18 18:59 06:59 18:59 Intake Total 360 730 Output Total 200 Balance 160 730 Weight 77.6 kg 80 kg Intake: Oral 360 420 Blood Product 310 Rc As-1 Unit 310 [id number] Output: Urine 200 Other: Voiding Method Toilet Toilet # Voids 1 # Bowel Movements 0 ABP, PAP, CO, CI - Last Documented Arterial Blood Pressure 92/51 Pulmonary Artery Pressure 51/26 Cardiac Output 5.4 Cardiac Index 3.0 - Exam PHYSICAL EXAMINATION: Patient is lying in the bed comfortably, no acute distress, awake alert and oriented. HEENT: Normocephalic. Neck is supple. Pupils reactive. Nostrils clear. Oral cavity is moist. Neck reveals no JVD, carotid bruits, or thyromegaly. CHEST EXAMINATION: Sternal wound is bandaged. Trachea is central. Symmetrical expansion. Bibasilar minimal crackles. No wheezing CARDIAC: Normal S1, S2 with no gallops. No murmurs ABDOMEN: Soft. Bowel sounds normal. No organomegaly. No abdominal bruits. Extremities:+ Trace edema. No clubbing or cyanosis. Neurologically awake alert and oriented 3. No focal deficits noted Skin: No rash or skin lesions. Psychiatric: Cooperative. Nonsuicidal Musculoskeletal: No joint swelling or deformity. Normal range of motion. - Labs CBC & Chem 7: 02/09/18 05:29 02/09/18 05:29 Labs: Abnormal Lab Results - Last 24 Hours (Table) 02/02/18 02/08/18 02/08/18 Range/Units 19:18 05:20 16:50 WBC (3.8-10.6) k/uL RBC (3.80-5.40) m/uL Hgb (11.4-16.0) gm/dL Hct (34.0-46.0) % RDW (11.5-15.5) % PT (9.0-12.0) sec INR (<1.2) Chloride (98-107) mmol/L BUN (7-17) mg/dL Creatinine (0.52-1.04) mg/dL POC Glucose (mg/dL) 141 H (75-99) mg/dL Phosphorus (2.5-4.5) mg/dL Iron 46 L (50-170) ug/dL Ferritin 496.4 H (10.0-291.0) ng/mL AST (14-36) U/L ALT (9-52) U/L Total Protein (6.3-8.2) g/dL Albumin (3.5-5.0) g/dL Crossmatch See Detail 02/09/18 02/09/18 02/09/18 Range/Units 02:03 05:29 05:29 WBC 12.4 H (3.8-10.6) k/uL RBC 2.84 L (3.80-5.40) m/uL Hgb 8.7 L (11.4-16.0) gm/dL Hct 26.1 L (34.0-46.0) % RDW 16.5 H (11.5-15.5) % PT 14.5 H (9.0-12.0) sec INR 1.6 H (<1.2) Chloride (98-107) mmol/L BUN (7-17) mg/dL Creatinine (0.52-1.04) mg/dL POC Glucose (mg/dL) 125 H (75-99) mg/dL Phosphorus (2.5-4.5) mg/dL Iron (50-170) ug/dL Ferritin (10.0-291.0) ng/mL AST (14-36) U/L ALT (9-52) U/L Total Protein (6.3-8.2) g/dL Albumin (3.5-5.0) g/dL Crossmatch 02/09/18 02/09/18 Range/Units 05:29 06:08 WBC (3.8-10.6) k/uL RBC (3.80-5.40) m/uL Hgb (11.4-16.0) gm/dL Hct (34.0-46.0) % RDW (11.5-15.5) % PT (9.0-12.0) sec INR (<1.2) Chloride 93 L (98-107) mmol/L BUN 83 H* (7-17) mg/dL Creatinine 4.01 H (0.52-1.04) mg/dL POC Glucose (mg/dL) 102 H (75-99) mg/dL Phosphorus 5.7 H (2.5-4.5) mg/dL Iron (50-170) ug/dL Ferritin (10.0-291.0) ng/mL AST 52 H (14-36) U/L ALT 65 H (9-52) U/L Total Protein 5.7 L (6.3-8.2) g/dL Albumin 3.2 L (3.5-5.0) g/dL Crossmatch Assessment and Plan Assessment: Acute non-ST elevated DC. Status post Cardiac catheterization showed triple- vessel disease. Status post quadruple bypass graft on 01/31/2018 Paroxsymal Atrial fibrillation with rapid ventricular rate. Currently on low- dose metoprolol and amiodarone, anticoagulated on Coumadin. Acute renal failure due to ATN , improving Exertional shortness of breath for 2 weeks prior to admission Acute CHF with systolic dysfunction Severe ischemic cardio myopathy Leukocytosis. Likely reactive. Hypertension hyperlipidemia Obesity DVT prophylaxis Anemia, iron deficient Plan: Continue on current medication regime , monitoring and symptomatic treatment. Diuretics remain on hold as per nephrology. Aggressive pulmonary toileting. Continue increasing activity as tolerated. Avoid nephrotoxic agents with close monitoring of renal function. Authorization pending for [facility] rehab. The impression and plan of care has been dictated as directed. : I performed a history and examination of this patient, discussed the same with the dictator. I agree with the dictator's note ,documented as a scribe. Any additional findings or plans will be noted.
[2018-02-09] MEDS ORDERED: WARFARIN 5 MG TAB PO ONE (18:00)
[2018-02-09] MEDS ORDERED: CRESTOR 20 MG PO SCH (21:00)
[2018-02-09 21:14] LABS: Glucose,Whole Blood 96 mg/dL (75-99)
[2018-02-09] MEDS: SENNOSIDES-DOCUSATE SODIUM 1 EACH TAB PO SCH (21:21)
[2018-02-10 02:07] LABS: Glucose,Whole Blood 93 mg/dL (75-99)
[2018-02-10 05:29] VITALS: RESP 18
[2018-02-10 05:59] LABS: Glucose,Whole Blood 81 mg/dL (75-99)
[2018-02-10] MEDS: INSULIN ASPART 100 UNIT/ML 1 ML 10 ML VIAL SQ SCH ×2 (06:17→12:10)
[2018-02-10] MEDS: PANTOPRAZOLE 40 MG TABLET PO SCH (06:18)
[2018-02-10 06:52] LABS: Anisocytosis Slight; HGB 9.7 gm/dL (11.4-16.0); Hypochromasia Slight; MCH 30.3 pg (25.0-35.0); MCHC 32.4 g/dL (31.0-37.0); MCV 93.6 fL (80.0-100.0); Mean Platelet Volume 7.5; Platelet Count 326 k/uL (150-450); RDW 16.4 % (11.5-15.5); WBC 11.4 k/uL (3.8-10.6)
[2018-02-10 06:55] LABS: INR 2.7 (<1.2); Prothrombin Time 24.1 sec (9.0-12.0)
[2018-02-10 07:02] LABS: Albumin 3.6 g/dL (3.5-5.0); Potassium 4.1 mmol/L (3.5-5.1); Total Bilirubin 0.7 mg/dL (0.2-1.3); Total Protein 6.2 g/dL (6.3-8.2)
[2018-02-10] MEDS: SYMBICORT 160-4.5 MCG INHALER INHALATION SCH (08:21)
[2018-02-10] MEDS: IPRATROPIUM-ALBUTEROL 3 ML NEB INHALATION SCH ×3 (08:21→16:32)
[2018-02-10] MEDS: METOPROLOL TARTRATE 12.5 MG TAB PO SCH (08:59)
[2018-02-10] MEDS: ASPIRIN 81 MG PO SCH (08:59)
[2018-02-10] MEDS: SODIUM FERRIC GLUCONAT-SUCROSE 125 MG in SODIUM CHLORIDE 0.9% 100 ML IVPB SCH (09:00)
[2018-02-10] MEDS ORDERED: AMIODARONE 200 MG TAB PO SCH (09:00)
--- NOTE | 2018-02-10 09:14 | P.PN ---
Subjective Patient is seen in follow-up for acute kidney injury. Creatinine peaked at 5.7 this admission and is down to 3.1 today. Patient underwent a CABG on 2017. She does have systolic CHF with ejection fraction of 30-35%. Diuretics are currently held. Denies chest pain or shortness of breath. Oral intake is good. She is nonoliguric. Hemodynamically stable. She has been ambulating. No active complaints at this time. Vital signs are stable. General: The patient appeared well nourished and normally developed. HEENT: Head exam is unremarkable. Neck is without jugular venous distension. LUNGS: Lungs are clear to auscultation and percussion. Breath sounds decreased. HEART: Rate and Rhythm are regular. First and second heart sounds normal. No murmurs, rubs or gallops. ABDOMEN: Abdominal exam reveals normal bowel sounds. Non-tender and non- distended. No evidence of peritonitis. EXTREMITITES: No clubbing, cyanosis, or edema. Objective - Vital Signs Vital signs: Vital Signs Temp 97.1 F L 02/10/18 08:48 Pulse 77 02/10/18 08:49 Resp 18 02/10/18 08:49 BP 138/65 02/10/18 08:48 Pulse Ox 93 L 02/10/18 08:48 Intake & Output 02/09/18 02/10/18 02/10/18 18:59 06:59 18:59 Intake Total 1190 218 Output Total 450 200 Balance 740 18 Weight 80.2 kg Intake: Intake, IV Titration 100 100 Amount Sodium Ferric Gluconat- 100 100 Sucrose 125 mg In Sodium Chloride 0.9% 100 ml @ 100 mls/hr IVPB DAILY [facility] Rx#:[id number] Oral 780 118 Blood Product 310 Rc As-1 Unit 310 [id number] Output: Urine 450 200 Other: Voiding Method Toilet Toilet Toilet # Voids 2 1 # Bowel Movements 1 1 ABP, PAP, CO, CI - Last Documented Arterial Blood Pressure 92/51 Pulmonary Artery Pressure 51/26 Cardiac Output 5.4 Cardiac Index 3.0 - Labs CBC & Chem 7: 02/10/18 06:16 02/10/18 06:16 Labs: Abnormal Lab Results - Last 24 Hours (Table) 04/19/18 04/19/18 04/19/18 Range/Units 06:16 06:16 06:16 WBC 11.4 H (3.8-10.6) k/uL RBC 3.20 L (3.80-5.40) m/uL Hgb 9.7 L (11.4-16.0) gm/dL Hct 30.0 L (34.0-46.0) % RDW 16.4 H (11.5-15.5) % PT 24.1 H (9.0-12.0) sec INR 2.7 H (<1.2) Chloride 96 L (98-107) mmol/L BUN 73 H (7-17) mg/dL Creatinine 3.10 H (0.52-1.04) mg/dL AST 44 H (14-36) U/L ALT 56 H (9-52) U/L Total Protein 6.2 L (6.3-8.2) g/dL Assessment and Plan Plan: Assessment: #1. Nonoliguric acute kidney injury secondary to ATN secondary to hemodynamic instability and atrial fibrillation. Creatinine peaked at 5.7 this admission and is 3.1 today. Baseline creatinine is 1. BUN also trending down. She is not on any steroids. No active bleeding. Hemoglobin is stable. #2. Coronary artery disease status post CABG on 02/03/2018. #3. Systolic CHF with ejection fraction of 30-35%. Currently compensated. #4. Hyperphosphatemia secondary to acute kidney injury. Maintained on PhosLo. Improving. #5. Atrial fibrillation maintained on oral amiodarone and Lopressor. Cardiology following. #6. Anemia. Iron deficiency noted. Plan: Continue to hold diuretics for now. Encourage oral intake. Avoid nephrotoxic agents and hypotensive episodes. Repeat electrolytes in the morning. Plan for rehab - awaiting insurance approval. Ferrlecit 125 mg IV daily for 3 days. Second dose today. D/c phoslo.
--- NOTE | 2018-02-10 10:42 | XR ---
EXAMINATION TYPE: XR chest 2V DATE OF EXAM: 02/10/2018 COMPARISON: Prior chest x-ray 02/09/2018 HISTORY: Post cardiac surgery TECHNIQUE: Frontal and lateral views of the chest are obtained. FINDINGS: Patient is post median sternotomy, the heart remains enlarged. There are overlying cardiac leads. No evident airspace disease, pneumothorax, or pleural effusion. There is some improved aerati on at the posterior lung bases. IMPRESSION: Improvement in patient's atelectasis.
[2018-02-10 11:58] LABS: Glucose,Whole Blood 120 mg/dL (75-99)
--- NOTE | 2018-02-10 12:08 | P.PN ---
Subjective Progress Note Date: 02/10/18 Principal diagnosis: Severe ischemic cardiomyopathy with EF 25-30%, left main disease, non-ST elevation myocardial infarction, acute on chronic systolic heart failure, hypertension, hyperlipidemia, mild mitral valve regurgitation, evidence of remote old inferior wall myocardial infarction. History of gout, recent pneumonia, syncope 2 years ago, previous tobacco dependence with preoperative FEV1 65%. Obesity. POD #10 urgent coronary artery bypass grafting 4 using the left internal mammary artery to the mid left anterior descending artery, reverse saphenous vein graft from the aorta to the diagonal artery, reverse saphenous vein graft from the aorta to the first obtuse marginal artery, reverse saphenous vein graft from the aorta to the posterior descending artery. Endoscopic harvesting of the right greater saphenous vein. Intraoperative transesophageal echocardiogram and epi-aortic scanning. Intraoperative graft flow measurements using the [employer] system. Postoperative acute elevation of transaminases, an unexpected but potential outcome of surgery. Postoperative atrial fibrillation, an expected outcome of surgery. Acute kidney injury, acute tubular necrosis secondary to hemodynamic changes and hypotension, an unexpected but potential outcome of surgery. The patient is currently sitting up in the recliner in no acute distress. She denies pain, shortness of breath. States she has ambulated in the hallway. States she feels ready to go home with home care. Her sister will stay with her. Discussion had with her regarding sternal precautions and Coumadin safety , all questions answered. Objective - Vital Signs Vital signs: Vital Signs Temp 97.1 F L 02/10/18 08:48 Pulse 70 02/10/18 11:42 Resp 18 02/10/18 08:49 BP 138/65 02/10/18 08:48 Pulse Ox 93 L 02/10/18 08:48 Intake & Output 02/09/18 02/10/18 02/10/18 18:59 06:59 18:59 Intake Total 1190 218 Output Total 450 200 Balance 740 18 Weight 80.2 kg Intake: Intake, IV Titration 100 100 Amount Sodium Ferric Gluconat- 100 100 Sucrose 125 mg In Sodium Chloride 0.9% 100 ml @ 100 mls/hr IVPB DAILY [facility] Rx#:[id number] Oral 780 118 Blood Product 310 Rc As-1 Unit 310 [id number] Output: Urine 450 200 Other: Voiding Method Toilet Toilet Toilet # Voids 2 1 # Bowel Movements 1 1 ABP, PAP, CO, CI - Last Documented Arterial Blood Pressure 92/51 Pulmonary Artery Pressure 51/26 Cardiac Output 5.4 Cardiac Index 3.0 - Constitutional General appearance: Present: cooperative, no acute distress, obese - Respiratory Details: Lungs sounds diminished bilaterally. Respirations even, nonlabored. Currently on room air with oxygen saturation 99%. Able to achieve 1951-7944 mL on her incentive spirometry. - Cardiovascular Details: S1, S2 present. Regular rate and rhythm, currently sinus rhythm on telemetry. Sternum stable. Palpable peripheral pulses bilaterally. No edema present. No calf pain or tenderness noted. Heart hugger in place with patient demonstrating appropriate use. Antiembolism stockings, SCDs present. - Gastrointestinal Gastrointestinal Comment(s): Abdomen soft, nontender, nondistended. Active bowel sounds 4 quadrants. Tolerating diet. Positive bowel movement. - Genitourinary Genitourinary Comment(s): Patient voiding clear, yellow urine. - Integumentary Integumentary Comment(s): Skin is warm and dry with evidence of good perfusion. Anterior chest incision well approximated and covered with dry intact dressing. Right lower extremity EVH site well approximated, slightly ecchymotic. - Neurologic Neurologic: Present: CNII-XII intact - Musculoskeletal Musculoskeletal: Present: gait normal, strength equal bilaterally - Psychiatric Psychiatric: Present: A&O x's 3, appropriate affect, intact judgment & insight - Allied health notes Allied health notes reviewed: nursing - Labs CBC & Chem 7: 02/10/18 06:16 02/10/18 06:16 Labs: Abnormal Lab Results - Last 24 Hours (Table) 02/10/18 02/10/18 02/10/18 Range/Units 06:16 06:16 06:16 WBC 11.4 H (3.8-10.6) k/uL RBC 3.20 L (3.80-5.40) m/uL Hgb 9.7 L (11.4-16.0) gm/dL Hct 30.0 L (34.0-46.0) % RDW 16.4 H (11.5-15.5) % PT 24.1 H (9.0-12.0) sec INR 2.7 H (<1.2) Chloride 96 L (98-107) mmol/L BUN 73 H (7-17) mg/dL Creatinine 3.10 H (0.52-1.04) mg/dL POC Glucose (mg/dL) (75-99) mg/dL AST 44 H (14-36) U/L ALT 56 H (9-52) U/L Total Protein 6.2 L (6.3-8.2) g/dL 02/10/18 Range/Units 11:57 WBC (3.8-10.6) k/uL RBC (3.80-5.40) m/uL Hgb (11.4-16.0) gm/dL Hct (34.0-46.0) % RDW (11.5-15.5) % PT (9.0-12.0) sec INR (<1.2) Chloride (98-107) mmol/L BUN (7-17) mg/dL Creatinine (0.52-1.04) mg/dL POC Glucose (mg/dL) 120 H (75-99) mg/dL AST (14-36) U/L ALT (9-52) U/L Total Protein (6.3-8.2) g/dL - Imaging and Cardiology Chest x-ray: report reviewed, image reviewed Assessment and Plan (1) Left main coronary artery disease Current Visit: Yes Status: Chronic Code(s): I25.10 - ATHSCL HEART DISEASE OF [place] CORONARY ARTERY W/O ANG PCTRS SNOMED Code(s): 735206134 (2) Acute on chronic systolic heart failure Current Visit: Yes Status: Acute Code(s): I50.23 - ACUTE ON CHRONIC SYSTOLIC (CONGESTIVE) HEART FAILURE SNOMED Code(s): 289151529 (3) History of myocardial infarction Current Visit: No Status: Resolved Code(s): I25.2 - OLD MYOCARDIAL INFARCTION SNOMED Code(s): 835524901 (4) History of gout Current Visit: Yes Status: Chronic Code(s): Z87.39 - PERSONAL HISTORY OF DISEASES OF THE [place] SYS AND CONN TISS SNOMED Code(s): 625555287 (5) Tobacco dependence in remission Current Visit: No Status: Resolved Code(s): F17.201 - NICOTINE DEPENDENCE, UNSPECIFIED, IN REMISSION SNOMED Code(s): 136572303 (6) Coronary artery disease Current Visit: Yes Status: Chronic Code(s): I25.10 - ATHSCL HEART DISEASE OF [place] CORONARY ARTERY W/O ANG PCTRS SNOMED Code(s): 14502630 (7) Hyperlipidemia Current Visit: Yes Status: Chronic Code(s): E78.5 - HYPERLIPIDEMIA, UNSPECIFIED SNOMED Code(s): 07168466 (8) Hypertension Current Visit: Yes Status: Chronic Code(s): I10 - ESSENTIAL (PRIMARY) HYPERTENSION SNOMED Code(s): 63764695 (9) Ischemic cardiomyopathy Current Visit: Yes Status: Chronic Code(s): I25.5 - ISCHEMIC CARDIOMYOPATHY SNOMED Code(s): 321390388 (10) NSTEMI (non-ST elevated myocardial infarction) Current Visit: Yes Status: Acute Code(s): I21.4 - NON-ST ELEVATION (NSTEMI) MYOCARDIAL INFARCTION SNOMED Code(s): 011682755 Plan: 1. Continue low-dose aspirin, statin, beta saw. Will increase beta saw as tolerated. 2. Continue amiodarone for A. fib prophylaxis. Decrease to 200 mg twice a day today for 1 week, then decrease to 200 mg daily. 3. Continue Coumadin for anticoagulation. Dosing of Coumadin to be done by cardiology associates upon discharge. 4. Wean oxygen as tolerated. Encourage incentive spirometry use 10 times every hour. 5. Lasix discontinued, managed by nephrology. Avoid nephrotoxic agents. Encourage oral intake. 6. Repeat echocardiogram demonstrated ischemic cardiomyopathy with ejection fraction 30-35%. Patient is a candidate for LifeVest at discharge. Will defer to cardiology for placement, cardiology has no plans for LifeVest at this time. 7. Discharge planning in progress. Anticipate discharge today to home with home care as insurance denied authorization for rehab. Safety precautions regarding sternal precautions and Coumadin were discussed in detail with the patient and her sister, both indicated understanding. Time with Patient: Greater than 30
[2018-02-10 12:16] VITALS: PULSE 77
[2018-02-10 12:26] VITALS: BP 136/66; TEMP 98.3
--- NOTE | 2018-02-10 13:11 | P.PN ---
Subjective Progress Note Date: 02/10/18 Principal diagnosis: Severe triple-vessel coronary artery disease status post four-vessel bypass grafting This is a 72-year-old female with multiple medical problems including hypertension hyperlipidemia extrinsic ALLERGIC alveolitis as well as coronary artery disease. The patient's going to the operating room today for a bypass grafting. She's been seen by my partner for the last couple of days. She did have a CT angiogram that was negative for pulmonary embolism. When she was seen yesterday, she was doing well and she was asymptomatic. No chest pain no shortness of breath and difficulty breathing. No coughing or wheezing. Labs were in order. This morning, prior to surgery the patient still doing well. No major issues or problems. 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 Progress note dated 02/01/2018 This is a 72-year-old female who is postop day #1 status post four-vessel bypass grafting. The patient's currently on the mechanical ventilator. Her current vent settings are the assist control mode rate of 24, tidal volume of 400 she is on a FiO2 50% with a PEEP of 5. Arterial blood gases show a PaO2 of 85 a PaCO2 40 and a pH of 7.35. The patient is currently on propofol at 20 mics per kilogram per minute, Primacor at 0.2 mics per kilogram per minute, insulin drip at 2 units per hour, and Cleviprex at 2 mg an hour. The patient's IV is lactated Ringer's at 50 mL an hour. According to cardiothoracic triage assistant , the patient can be weaned at this time. Chest x-ray show some mild fluid overload. The patient otherwise is stable. Even on a small amount of propofol , her mental status is reasonable. We'll wean that off and start the process. She has a history of non-ST segment elevation myocardial infarction, severe triple-vessel coronary artery disease, ischemic cardiomyopathy, systolic heart failure, hypertension, hyperlipidemia, extrinsic ALLERGIC alveolitis and COPD from previous heavy tobacco use. Progress note dated 02/02/2018 72-year-old female postop day #2, status post four-vessel bypass grafting. She was extubated yesterday on February 01. Currently, she is on a nonrebreather mask. In addition, she is on dopamine at 2 mcg/kg/m, a Lasix drip at 10 mg an hour, amiodarone at 0.5 mg/m and lactated Ringer's at 20 mL an hour. Chest x- ray shows just some mild fluid overload. The patient otherwise looks relatively weak. The patient seemed a little sleepy and lethargic. Does not really take in deep breaths. Chest x-ray though does not look horrible. 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 The patient's oxygen requirements have gone up since extubation, initially she was on 6 L by nasal cannula and is now on a nonrebreather. She may benefit from BiPAP therapy to help rest her. On 02/03/2018 patient is seen in follow-up in intensive care unit. She is awake , alert, seems a bit more upbeat and conversant compared to yesterday's exam. Currently down to 4 L per nasal cannula, and O2 sat is at 91%. Patient is afebrile, hemodynamically stable, patient went back into atrial fibrillation last night, and currently her heart rate is slightly tachycardic up to 109 BPM. Patient's IV amiodarone has been converted to oral amiodarone 200 mg by mouth twice a day. Maintenance IV fluids are LR at a rate of 10 ML per hour, and Lasix drip is currently at 15 mg per hour. Today's chest x-ray shows triage assistant interstitial pattern with bilateral infiltrates and small effusion, consistent with CHF or fluid overload. Today's lab work shows to be BCR 14.6, hemoglobin is 8.5, sodium is 138, potassium 5.0, carbon dioxide is 21, BUN is 40, and creatinine is 3.67. Patient's renal profile has worsened. Patient is compliant with her incentive spirometry, is able to achieve 500 today, we'll continue to encourage breathing and coughing and obvious use. Her pain is reasonably controlled. Midsternal incision is clean dry and intact, patient has a left pleural chest tube to low continuous wall suction at -27 m of water. Small amount of thin serosanguineous drainage with 100 mL output in the last 8 hours, and 190 mL output in the last 24 hours. Cordova catheter is in place, draining clear parth urine, urine output is marginal, averaging about 30 ML per hour. As a ELICEO drain in the right lower leg with thin serosanguineous drainage, bilateral legs are Ervin wrapped. On 02/04/2018 patient is seen in follow-up in the intensive care unit. She is sitting up in the recliner, tolerating activity well. She did ambulate yesterday. Incentive spirometry effort is 750 today, FiO2 is currently down to 3 L per nasal cannula. Hemodynamically stable, afebrile. Today's lab work shows a WBC of 12.6, hemoglobin 8.5, sodium is 136, potassium is 5.2, BUN is 50 , creatinine is 4.70. Further worsening of the renal function. Patient maintenance IVs LR at the rate of 10 ML per hour, Lasix drip at 20 mg per hour. Today's chest x-ray shows interval removal of left pleural chest tube, pulmonary venous hypertension and interstitial edema, volume overload. Patient is in sinus rhythm. Liver enzymes are trending down, patient's Crestor remains on hold Progress note dated 02/06/2018 72-year-old female postop day #6, status post four-vessel bypass grafting. She was extubated on February 01. She's doing well. She's on O2 at 3 L. Not receiving any IV fluids. She has had on-and-off atrial fibrillation. Feels much better. She does have a history of previous non-ST segment elevation myocardial infarction, severe triple-vessel coronary artery disease, ischemic cardiomyopathy, systolic heart failure, hypertension, hyperlipidemia, extrinsic ALLERGIC alveolitis, and COPD. The patient is doing well. Probably from the pulmonary perspective could be discharged out of the unit. We'll wait and see what cardiothoracic has to say. She's doing pretty well recently on her incentive spirometer. On 02/07/2018 patient seen in follow-up in the intensive care unit. She is resting in bed, she has been ambulating in the hallway, tolerating activity well. FiO2 is currently down to 3 L per nasal cannula, with O2 sat 94%. Vital signs are stable, patient in sinus rhythm on the monitor with a rate at 66 BPM. Patient's chest tubes were discontinued last week, epicardial wires were discontinued this morning. Patient denies any acute distress, her pain is controlled with oral medications, her incentive spirometry effort is 750 today. Currently not on any maintenance IV fluids, or drips. On today's lab work WBCs 12.1, hemoglobin is 8.7, INR is 1.2, sodium is 135, potassium is 4.0 chloride is 90, B1 is 80, creatinine is 5.57, liver enzymes are trending down, AST is 63, AST 73, alkaline phosphatase is 127. Today's chest x-ray was reviewed and shows basilar atelectasis, small effusions, component of volume overload, pulmonary venous hypertension and interstitial edema. Her is in place, with antiembolism stockings and SCDs. Tolerating oral intake, no acute events overnight. Anticipate transfer to selective care unit today. The patient is seen again today 02/08/2018 a follow-up on the selective care unit. She is currently sitting up at the bedside. She is awake and alert in no acute distress. She is maintaining good O2 saturations in the mid 90s on 3 L/ m per nasal cannula. Chest x-ray reveals improved aeration of the lung basis. She is working well with the incentive spirometer. She's been up ambulating with assistance. She remains on amiodarone. Currently in sinus rhythm. Plan is for LifeVest prior to discharge. Ejection fraction less than 35%. White count 11.5. Hemoglobin 8.6. Creatinine 4.90. AST 52, ALT 75. Statins remain on hold. The patient is seen again today 02/09/2018 in follow-up on the selective care unit. She is awake and alert in no acute distress. She denies any shortness of breath, cough or congestion. No chills or night sweats. She is maintaining O2 saturations in the 90s on room air. She's been afebrile. Hemodynamically stable. Today's chest x-ray shows cardiomegaly with improvement in her volume status. There is persistent basilar atelectasis noted. She is working well with the incentive spirometer. She's been up ambulating in the hallway without any acute respiratory distress. White count 12.4. Hemoglobin 8.7. INR 1.6. Creatinine 4.01. AST 52, ALT 65. On 02/10/2018 patient seen in follow-up on selective care unit. Sitting up in the chair, denies any acute distress, early on room air, with O2 sat at 96%. Respirations are even and nonlabored, lung sounds are diminished bilaterally, no rhonchi or rales noted. Is able to achieve 1000 12/06/1947 ML on her incentive spirometry today. She remains in sinus rhythm with a controlled rate. Midsternal incision is clean dry and intact and stable. No edema present , patient has been ambulating, and tolerating activity very well. Today's chest x-ray shows improvement in patient's atelectasis, and there is some improved aeration at the posterior lung bases. Today's labs showed WBC of 11.4 , hemoglobin 9.7, INR is 2.7, and the patient is on Coumadin. Renal profile is improving, BUN is down to 73, and creatinine is 3.10. Her diuretics are on hold , no evidence of edema in her bilateral lower extremities. Patient is tolerating oral intake, and is nonoliguric. Nephrology is following. Anticipate discharge home today Objective - Vital Signs Vital signs: Vital Signs Temp 98.3 F 02/10/18 12:00 Pulse 77 02/10/18 12:15 Resp 18 02/10/18 12:15 BP 136/66 02/10/18 12:00 Pulse Ox 96 02/10/18 12:00 Intake & Output 02/09/18 02/10/18 02/10/18 18:59 06:59 18:59 Intake Total 1190 218 Output Total 450 200 Balance 740 18 Weight 80.2 kg Intake: Intake, IV Titration 100 100 Amount Sodium Ferric Gluconat- 100 100 Sucrose 125 mg In Sodium Chloride 0.9% 100 ml @ 100 mls/hr IVPB DAILY [facility] Rx#:[id number] Oral 780 118 Blood Product 310 Rc As-1 Unit 310 [id number] Output: Urine 450 200 Other: Voiding Method Toilet Toilet Toilet # Voids 2 1 # Bowel Movements 1 1 ABP, PAP, CO, CI - Last Documented Arterial Blood Pressure 92/51 Pulmonary Artery Pressure 51/26 Cardiac Output 5.4 Cardiac Index 3.0 - Exam GENERAL EXAM: Alert, pleasant 72-year-old white female, comfortable in no apparent distress. Remains on 4 L per nasal cannula HEAD: Normocephalic/atraumatic. EYES: Normal reaction of pupils, equal size. Conjunctiva pink, sclera white. NOSE: Clear with pink turbinates. THROAT: No erythema or exudates. NECK: No masses, no JVD, no thyroid enlargement, no adenopathy. CHEST: No chest wall deformity. Symmetrical expansion. There is interval change left pleural chest tube removal. Midsternal incision is clean dry and intact and stable. Epicardial wires were discontinued LUNGS: Lung sounds are clear, diminished at the bases CVS: Irregular rate and rhythm, normal S1 and S2, no gallops, no murmurs, no rubs ABDOMEN: Soft, nontender. No hepatosplenomegaly, normal bowel sounds, no guarding or rigidity. EXTREMITIES: No clubbing, no edema, no cyanosis, 2+ pulses and upper and lower extremities. Bilateral lower extremities are ervin wrapped MUSCULOSKELETAL: Muscle strength and tone normal. SPINE: No scoliosis or deformity SKIN: No rashes CENTRAL NERVOUS SYSTEM: Alert and oriented -3. No focal deficits, tone is normal in all 4 extremities. PSYCHIATRIC: Alert and oriented -3. Appropriate affect. Intact judgment and insight. - Labs CBC & Chem 7: 02/10/18 06:16 02/10/18 06:16 Labs: Abnormal Lab Results - Last 24 Hours (Table) 02/10/18 02/10/18 02/10/18 Range/Units 06:16 06:16 06:16 WBC 11.4 H (3.8-10.6) k/uL RBC 3.20 L (3.80-5.40) m/uL Hgb 9.7 L (11.4-16.0) gm/dL Hct 30.0 L (34.0-46.0) % RDW 16.4 H (11.5-15.5) % PT 24.1 H (9.0-12.0) sec INR 2.7 H (<1.2) Chloride 96 L (98-107) mmol/L BUN 73 H (7-17) mg/dL Creatinine 3.10 H (0.52-1.04) mg/dL POC Glucose (mg/dL) (75-99) mg/dL AST 44 H (14-36) U/L ALT 56 H (9-52) U/L Total Protein 6.2 L (6.3-8.2) g/dL 02/10/18 Range/Units 11:57 WBC (3.8-10.6) k/uL RBC (3.80-5.40) m/uL Hgb (11.4-16.0) gm/dL Hct (34.0-46.0) % RDW (11.5-15.5) % PT (9.0-12.0) sec INR (<1.2) Chloride (98-107) mmol/L BUN (7-17) mg/dL Creatinine (0.52-1.04) mg/dL POC Glucose (mg/dL) 120 H (75-99) mg/dL AST (14-36) U/L ALT (9-52) U/L Total Protein (6.3-8.2) g/dL Assessment and Plan Plan: Assessment: Severe triple-vessel coronary disease Postop day #10, status post four-vessel bypass grafting. Postoperative respiratory failure, with extubation on February 01. Acute non-ST segment elevation myocardial infarction Severe ischemic cardiomyopathy Systolic congestive heart failure Benign essential hypertension Hyperlipidemia Extrinsic ALLERGIC alveolitis Mild COPD Previous tobacco history Plan: Patient continues to progress, remains stable, denies any acute dyspnea, chest pain, no acute events overnight, vital signs are stable, renal profile is improving. She has been ambulating, and tolerating activity well. Today's chest x-ray shows improvement in the aeration, and atelectasis. Obtain new encouraging incentive spirometry, ambulation. Her INR is therapeutic today's blood work. Patient is anticipated to be discharged home today, follow-up with Dr. Park in 2 weeks. I performed a history & physical examination of the patient and discussed their management with my nurse practitioner, Jessica Whitfield. I reviewed the nurse practitioner's note and agree with the documented findings and plan of care. Lung sounds are positive for diminished lung sounds. The findings and the impression was discussed with the patient. I attest to the documentation by the nurse practitioner. Time with Patient: Less than 30
--- NOTE | 2018-02-10 14:09 | P.DS ---
Providers Date of admission: 01/27/18 13:08 Expected date of discharge: 02/10/18 Attending physician: Amanda Mendez Consults: 01/27/18 13:08 Consult Physician Stat Consulting Provider: Domingo Cook Consult Reason/Comments: NSTEMI Do you want consulting provider notified?: Already Contacted 01/28/18 07:06 Consult Physician Routine Consulting Provider: Juan Gallardo Consult Reason/Comments: Pulmunary management Do you want consulting provider notified?: Yes 01/28/18 10:36 Consult to Anesthesia Routine Consulting Provider: Anesthesia,Services Consult Reason/Comments: Cardiac Surgery Pre-Op 01/31/18 14:43 Consult Physician Routine Consulting Provider: Aleksandr Duarte Consult Reason/Comments: medical management Do you want consulting provider notified?: Already Contacted 02/02/18 07:57 Consult Physician Routine Consulting Provider: Sulema Martinez Consult Reason/Comments: acute kidney injury Do you want consulting provider notified?: Yes 02/05/18 10:13 Consult Physician Routine Consulting Provider: Eddy Carter Consult Reason/Comments: Inpatient rehab placement Do you want consulting provider notified?: Yes Primary care physician: Ranjeet Melgar - Discharge Diagnosis(es) (1) Left main coronary artery disease Current Visit: Yes Status: Chronic (2) Acute on chronic systolic heart failure Current Visit: Yes Status: Acute (3) History of myocardial infarction Current Visit: No Status: Resolved (4) History of gout Current Visit: Yes Status: Chronic (5) Tobacco dependence in remission Current Visit: No Status: Resolved (6) Coronary artery disease Current Visit: Yes Status: Chronic (7) Hyperlipidemia Current Visit: Yes Status: Chronic (8) Hypertension Current Visit: Yes Status: Chronic (9) Ischemic cardiomyopathy Current Visit: Yes Status: Chronic (10) NSTEMI (non-ST elevated myocardial infarction) Current Visit: Yes Status: Acute Hospital Course: FINAL DIAGNOSIS: 1. Severe ischemic cardiomyopathy with EF 25-30% preoperatively 2. Left main disease, non-STEMI 3. Acute on chronic systolic heart failure 4. Hypertension 5. Hyperlipidemia 6. Mild mitral valve regurgitation 7. Previous myocardial infarction 8. History of gout 9. Recent pneumonia 10. History of syncopal episode 11. Previous tobacco dependence with preoperative FEV1 65% predicted 12. Obesity 13. Postoperative acute elevation of transaminases 14. Postoperative paroxysmal atrial fibrillation 15. Acute kidney injury, acute tubular necrosis secondary to hemodynamic changes and hypotension PRINCIPAL PROCEDURE: 1. Left heart catheterization 2. Urgent coronary artery bypass grafting 4 using left internal mammary artery to the mid left anterior descending artery, reverse saphenous vein graft from the aorta to the diagonal artery, reverse saphenous vein graft from aorta to the first obtuse marginal artery, reverse saphenous vein graft from the aorta to the posterior descending artery 3. Endoscopic harvesting of the right greater saphenous vein 4. Intraoperative transesophageal echocardiogram and epi-aortic scanning 5. Intraoperative graft flow measurements using the Medistim system HISTORY OF PRESENT ILLNESS: This is a 72-year-old female who follows with Dr. Pollack on an outpatient basis. She had recent complaints of increased shortness of breath and lower extremity edema over the previous 2-3 weeks. She had been seen in her primary care office and was thought to have pneumonia, she was prescribed antibiotics, steroids, and Lasix. She continued to have shortness of breath as well as developing chest pain and she presented to [facility] emergency room. Upon evaluation she was ruled in for non-STEMI, taken urgently to the catheterization lab and was found to have 80% left main stenosis , totally occluded right coronary artery, 80% stenosis to her circumflex artery , and 80% stenosis to her proximal LAD. Dr. Mendez from cardiothoracic surgery was consulted for the possibility of surgical revascularization. An extensive discussion was had with the patient and her family, risks and benefits were explained, and consent was obtained to proceed with surgery. HOSPITAL COURSE: On 01/31/2018 the patient was taken to the preoperative area, prepared in the usual fashion, and subsequently taken to the operating room where Dr. Mendez performed an urgent coronary artery bypass grafting 4 using left internal mammary artery to the mid left anterior descending artery, reverse saphenous vein graft from the aorta to the diagonal artery, reverse saphenous vein graft from aorta to the first obtuse marginal artery, reverse saphenous vein graft from the aorta to the posterior descending artery, endoscopic harvesting of the right greater saphenous vein, intraoperative transesophageal echocardiogram, epi-aortic scanning, and intraoperative graft flow measurements using the Medistim system. Upon completion of surgery the patient was transferred to the cardiovascular intensive care unit where she was recovered, monitored hemodynamically, and where she progressed to cardiac rehabilitation phase 1. She was extubated, all lines, tubes, and drips were discontinued when appropriate. She did experience acute elevation in her transaminases which was thought to be the result of hypotension, she experienced postoperative paroxysmal atrial fibrillation which is a common occurrence after open heart surgery, as well as acute kidney injury secondary to hemodynamic changes and hypotension. She was transferred to [address] [place] [address] for further monitoring and rehabilitation. Her oxygen was titrated down, she continued to work with physical therapy, and was ready to be discharged to home with home care on postoperative day #10. She received written and verbal instruction regarding her medications, activity restrictions, signs and symptoms requiring physician notification, and follow-up appointments. COMPLICATIONS: The patient experienced postoperative acute elevation of transaminases, paroxysmal atrial fibrillation, and acute kidney injury, all which were treated accordingly. Patient Condition at Discharge: Serious Plan - Discharge Summary Discharge Rx Participant: Yes New Discharge Prescriptions: New Amiodarone [Cordarone] 200 mg PO BID #14 tab Amiodarone [Cordarone] 200 mg PO DAILY #14 tab Aspirin 81 mg PO DAILY #30 chew Crestor 40 mg PO HS #30 HYDROcodone/APAP 5-325MG [[place] 5-325] 1 - 2 each PO Q6HR PRN #60 tab PRN Reason: Moderate Pain Metoprolol Tartrate [Lopressor] 12.5 mg PO BID #60 tab Pantoprazole [Protonix] 40 mg PO AC-BRKFST #30 tablet.dr Lainez-Docusate Sodium [Senokot-S] 2 each PO HS #30 tab Warfarin [Coumadin] 2.5 mg PO DAILY #30 tab Discontinued Bisoprolol-Hctz 10-6.25 mg [Ziac 10-6.25 MG] 1 tab PO PC-SUPPER Fluticasone/Vilanterol [Breo Ellipta 100-25 Mcg Inhaler] 1 inhalation PO RT- DAILY Albuterol Nebulized [Ventolin Nebulized] 2.5 mg INHALATION RT-TID Discharge Medication List Amiodarone [Cordarone] 200 mg PO BID #14 tab 02/09/18 [Rx] Amiodarone [Cordarone] 200 mg PO DAILY #14 tab 02/09/18 [Rx] Aspirin 81 mg PO DAILY #30 chew 02/10/18 [Rx] Crestor 40 mg PO HS #30 02/10/18 [Rx] HYDROcodone/APAP 5-325MG [[place] 5-325] 1 - 2 each PO Q6HR PRN #60 tab 04/19/18 [ Rx] Metoprolol Tartrate [Lopressor] 12.5 mg PO BID #60 tab 02/10/18 [Rx] Pantoprazole [Protonix] 40 mg PO AC-BRKFST #30 tablet. 02/10/18 [Rx] Sennosides-Docusate Sodium [Senokot-S] 2 each PO HS #30 tab 02/10/18 [Rx] Warfarin [Coumadin] 2.5 mg PO DAILY #30 tab 02/10/18 [Rx] Follow up Appointment(s)/Referral(s): Juan Gallardo MD [STAFF PHYSICIAN] - 02/24/18 2:30 pm () Sudeep Hays MD [STAFF PHYSICIAN] - 03/11/18 10:45 am Lu Nails NPC [Nurse Practitioner] - 02/14/18 1:00 pm Sulema Martinez MD [STAFF PHYSICIAN] - 1 Week (Physician office will call with appointment time) Ramón Pollack MD [Primary Care Provider] - 02/21/18 10:30 am () Amanda Mendez MD [STAFF PHYSICIAN] - 03/11/18 10:15 am [facility] Visiting Nurse, [NON-STAFF] - Ambulatory/Diagnostic Orders: Complete Blood Count w/diff [LAB.AMB] Time Frame: 3 Days, Location: Determined By Patient Comprehensive Metabolic Panel [LAB.AMB] Time Frame: 3 Days, Location: Determined By Patient Prothrombin Time INR [LAB.AMB] Time Frame: 02/12/18, Location: Determined By Patient Activity/Diet/Wound Care/Special Instructions: DISCHARGE INSTRUCTIONS: 1. No driving for 4 weeks, or until physician gives their ok. 2. The patient should sleep in their own bed, no medical bed needed. 3. Stairs are not an issue. If the bedroom is upstairs, it is advised that the patient go up at night and down in the morning for the first week. Go slowly, using handrail and take 1 step at a time. 4. RODO hose are to be worn for 30 days or until physician discontinues. 5. Heart hugger is to be worn 100% of the time until physician discontinues.( except when showering) 6. No lifting, pushing, or pulling more than 10 pounds for 12 weeks. The physician will advise of any restriction changes. 7. The patient is expected to continue the prescribed walking program. 8. Continue pain control per as needed orders. 9. Continue with incentive spirometry and splinting/heart hugger until otherwise directed by the physician. 10. Must shower daily using liquid antibacterial soap and a separate white washcloth for each individual incision. 11. Routine sternal incision care. No powders, lotions, ointments on incisions. 12. Please call surgeon/FOOD COOKING MACHINE OPERATOR for temp greater than 101 F or purulent drainage from incisions. 13. All prescriptions given by surgeon for 30 days. Refills need to be filled through radio interference expert/primary care physician. HOME HEALTH SERVICES TO PROVIDE: RN SKILLED HOME CARE SERVICES FOR POST-OP SURGICAL PATIENTS WITH THE FOLLOWING: Coronary Artery Bypass Surgery (CABG), Mitral Valve Replacement/ Repair ( MVR), Aortic Valve Replacement/Repair (AVR) RN TO CONTINUE EDUCATION FROM ``ROAD TO A HEALTH HEART PATIENT EDUCATION MANUAL (GIVEN TO PATIENT IN THE HOSPITAL) MEDICATION RECONCILIATION WITH EDUCATION NEEDED ON FIRST HOME VISIT EMPHASIZE IMPORTANCE OF WEARING BREAST SUPPORT/HEART HUGGER ENCOURAGE USE OF INCENTIVE SPIROMETER 10 X EVERY HOUR WHILE AWAKE ENCOURAGE UTILIZATION OF LOWER EXTREMITY COMPRESSION STOCKINGS/RODO HOSE and ELEVATE LEGS ABOVE LEVEL OF HEART WHILE AT REST. ENCOURAGE AMBULATION 3-5x/day INCREASING TOLERATES, WHILE AVOID EXTREMES IN TEMPERATURE FREQUENCY: RN TO OPEN THE PATIENT WITHIN 24 HOURS OF DISCHARGE FROM THE HOSPITAL WITH TELEHEALTH INSTALLED AT [facility], RN TO VISIT 2-3 X A WEEK FOR 4 WEEKS ESTABLISHED BY PATIENT NEEDS. REMOVAL OF SUTURES: NURSING SERVICES TO REMOVE SUTURES TWO WEEKS POST SURGICAL DATE Wednesday February 14, 2018. If any questions regarding suture removal please call the office at [phone]. LABORATORY: CBC, CMP TO BE DRAWN ON THE SECOND DAY HOME, 02/12/2018 (RAN STAT) FAX RESULTS TO [phone]. For patients on Coumadin, PT/INR to be drawn on Wednesday, 2017 ran as STAT, and results given to [facility] for Coumadin dosing. TELEHEALTH PARAMETERS: WEIGHT: NOTIFY MD OF WEIGHT GAIN OF 2 LBS IN 24 HOURS OR 5 LBS IN ONE WEEK HR: NOTIFY MD OF HR <55 BPM OR HR>100 BPM BP: NOTIFY MD IF BP <90/55 OR BP>140/100 O2 SAT: NOTIFY MD IF PO2<93% ON ROOM AIR SEND TELEHEALTH REPORT TO ENTRY REP AND CARDIOVASCULAR SURGEON THE FIRST WEEK OF CARE AND THEN BI-WEEKLY. PLEASE ADDITIONALLY COMMUNICATE ANY ABNORMALS AND NEW FINDINGS TO THE SURGEONS OFFICE. A Red armband has been placed on the patient. It should be worn for 30 days post surgery and will be removed by the cardiac surgeons. If an ER visit is necessary, please make sure the number on the Red armband is called. Discharge Disposition: HOME WITH HOME HEALTH SERVICES
--- NOTE | 2018-02-10 14:46 | PN ---
PROGRESS NOTE Mrs. Cutler is a 72-year-old female status post coronary artery bypass grafting. She is feeling better today. Her breathing is better. She denies any chest pain. She continues to be in sinus mechanism. She denies any dizziness or palpitation. She denies any nausea. She feels stronger. She continues to be on amiodarone 200 mg twice a day, aspirin 81 mg daily, Coumadin, Crestor 40 mg daily, insulin, metoprolol tartrate 12.5 mg twice a day. PHYSICAL EXAMINATION: Blood pressure 136/60 with a heart in the 70s. LUNGS: No wheezes. HEART: Regular rate and rhythm. S1, S2. No S3. No rub. ABDOMEN: Soft, nontender. EXTREMITIES: Trace edema. LAB DATA: BUN and creatinine 73 and 3.1, much improved. Potassium of 4.1. INR of 2.7. IMPRESSION: 1. Status post coronary artery bypass grafting. 2. Paroxysmal atrial fibrillation, remains in sinus mechanism. 3. Renal failure, improving. 4. Anemia. RECOMMENDATION: She should be able to be discharged home today and followed as an outpatient with Dr. Cook. MMCHANNINGL / IJN: [id number] /
--- NOTE | 2018-02-10 18:02 | P.PN ---
Subjective Progress Note Date: 02/10/18 Progress note being dictated for Dr. Duarte. Status post cardiac catheterization, triple-vessel disease. Interval history:This is a pleasant 73-year-old female patient with a past medical history significant for hypertension and dyslipidemia with no documented history of coronary artery disease or congestive heart failure presented to the hospital complaining of shortness of breath for the last 3 weeks. The patient stated that the shortness of breath was started about 3 weeks ago. Beside that she describes epigastric discomfort. She stated she developed bilateral lower extremities edema and she was seen by her primary care physician who put her on Lasix with improvement in the edema. The patient did not have any symptoms of chest pain or discomfort, dizziness or lightheadedness , or any syncope. She does have epigastric discomfort mainly. The EKG showed sinus rhythm with nonspecific changes in the inferior leads. There was also some ST and T wave abnormalities seems to be diffuse. Beside that the d-dimer came in to be abnormal and the patient is in process to have a CTA of the chest to rule out any PE. The BNP came in to be also severely abnormal and the patient was given Lasix IV in the emergency room. The first set of troponin also came in to be slightly abnormal. The patient underwent an emergent heart catheterization and that revealed severe triple-vessel coronary artery disease. She was seen and evaluated by cardiothoracic surgeon and the plan is to proceed with CABG this coming Wednesday. 01/28/2018 Patient seen and examined at bedside in ICU; family members at bedside; she denies any chest pain or shortness of breath; patient is continued on aspirin, metoprolol, Lasix and Aldactone; statins and lisinopril has been continued; echocardiogram showed impaired left ventricular function with ejection fraction of 25-30% 01/29/2018 Patient remains in ICU; sitting up in a chair and denies any chest pain or shortness of breath; overall patient seems to be doing better 01/30/2018 Patient remains in ICU and remains chest pain-free; patient relates that her swelling in both lower extremities is improved; she remains on Lasix and Aldactone Patient is scheduled for CABG in the morning 01/31/2018 Patient underwent quadruple bypass graft today currently intubated postoperatively. Pulmonary and CT surgery is following. Chest x-ray showed left lower lung atelectasis and possible postoperative changes. 02/01/2018 Patient is status post quadruple bypass graft. Patient was successfully weaned off of ventilator. Next and chest x-ray showed mild fluid overload. Otherwise patient is awake alert and lying in the bed comfortable.. Patient went to atrial fibrillation and was started on amiodarone. No fever no chills. No chest pain or worsening shortness of breath. Complete review of systems could not be apparent from the patient. 02/02/2018 Patient is more awake and alert today. Able to also simple questions. Currently converted back to sinus rhythm. Amiodarone has been changed to oral. Patient is on dopamine drip at low-dose. Continued on IV Lasix drip. Patient is being converted on aspirin, Plavix and statins. Cardiology and pulmonary is following. No fever no chills. Patient denied any worsening shortness of breath or chest pain. 02/03/2018 Patient is awake and oriented able to sit in the chair and is improving clinically and patient is maintained on Lasix drip. Off pressors support. No other acute overnight issues. Cardiology and pulmonary is following. Clinically improving. 02/04/2018 Patient is currently sitting in the chair. Part spreading in physical therapy. Still on IV Lasix and her leg swelling is improving otherwise. BUN 50 creatinine 4.7 Chest x-ray showed interval al of left pleural chest tube. Pulmonary venous hypertension and interstitial edema . Tolerating oral diet. Crestor is on hold due to elevated laryngitis which are trending down now. No complaints of chest pain. No worsening shortness of breath. No nausea vomiting or abdominal pain. 02/05/2018 Patient currently sitting in the chair comfortably. No complaints of chest pain or worsening shortness of breath. Otherwise symptomatically much improved now. Participating in physical therapy. Chest x-ray showed postoperative changes with left basilar air space disease and small bilateral pleural effusions. Patient is being continued on IV Lasix now. BUN 60 creatinine 5.6. Amiodarone has been changed to metoprolol low-dose. Patient is being followed by cardiology and nephrology and pulmonary. 02/06/2018 Patient is sitting in the chair comfortably. No fever no chills. Tolerating oral diet. Leg swelling is much improved now. Patient is being continued on Lasix otherwise. Creatinine level increased to 5.7 due to ATN. Otherwise continue on amiodarone and metoprolol. Remain on sinus rhythm. Cardiology and pulmonary is following. No other acute overnight issues. Participating in physical therapy. 02/07/2018 Coumadin initiated yesterday for paroxysmal atrial fibrillation, currently sinus rhythm. Ambulating, tolerating increase in exertion well. Awaiting transfer out to telemetry floor. Incentive spirometer up to 750. Chest x-ray reporting basilar atelectasis, small effusions, component of confinement overload, interstitial edema, pulmonary venous hypertension. Good diet intake, Blood sugars controlled. Creatinine 5.57 with diuretics currently on hold. LFTs improving. Epicardial wires discontinued this morning. 02/08/2018 currently on telemetry unit, sitting up in chair, doing well. Ambulating in hallway, tolerated exertion well. Incentive spirometer up to 1000. Diet intake improving with no nausea, no vomiting. Creatinine improving , down to 4.9. Diuretics remain on hold. Reports last bowel movement 2 days ago. LFTs improving . INR 1.2. Telemetry sinus rhythm. 02/09/2018 no overnight events, [facility], creatinine down to 4.01. Receiving IV iron for iron deficient anemia. Chest x-ray reporting improvement in volume status with persistent basilar atelectasis. Ambulating in hallway, tolerating exertion well. INR 1.6. Afebrile. 02/10/2018 Ambulating, tolerating exertion well. Creatinine continues to improve, down to 3.1 receiving IV iron.chest x-ray reports improving atelectasis .[facility] Patient is preparing for discharge home today. Objective - Vital Signs Vital signs: Vital Signs Temp 98.3 F 02/10/18 12:00 Pulse 77 02/10/18 16:00 Resp 18 02/10/18 16:00 BP 136/66 02/10/18 12:00 Pulse Ox 96 02/10/18 12:00 Intake & Output 02/09/18 02/10/18 02/10/18 18:59 06:59 18:59 Intake Total 1190 318 Output Total 450 200 Balance 740 118 Weight 80.2 kg Intake: Intake, IV Titration 100 100 Amount Sodium Ferric Gluconat- 100 100 Sucrose 125 mg In Sodium Chloride 0.9% 100 ml @ 100 mls/hr IVPB DAILY [facility] Rx#:[id number] Oral 780 218 Blood Product 310 Rc As-1 Unit 310 [id number] Output: Urine 450 200 Other: Voiding Method Toilet Toilet Toilet # Voids 2 1 # Bowel Movements 1 1 ABP, PAP, CO, CI - Last Documented Arterial Blood Pressure 92/51 Pulmonary Artery Pressure 51/26 Cardiac Output 5.4 Cardiac Index 3.0 - Exam PHYSICAL EXAMINATION: Patient is sitting up in chair comfortably, no acute distress, awake alert and oriented. HEENT: Normocephalic. Neck is supple. Pupils reactive. Nostrils clear. Oral cavity is moist. Neck reveals no JVD, carotid bruits, or thyromegaly. CHEST EXAMINATION: Bibasilar minimal crackles. No wheezing CARDIAC: Normal S1, S2 with no gallops. No murmurs ABDOMEN: Soft. Bowel sounds normal. No organomegaly. No abdominal bruits. Extremities:+ Trace edema. No clubbing or cyanosis. Neurologically awake alert and oriented 3. No focal deficits noted Skin: No rash or skin lesions. Psychiatric: Cooperative. calm. Musculoskeletal: No joint swelling or deformity. Normal range of motion. - Labs CBC & Chem 7: 02/10/18 06:16 02/10/18 06:16 Labs: Abnormal Lab Results - Last 24 Hours (Table) 02/10/18 02/10/18 02/10/18 Range/Units 06:16 06:16 06:16 WBC 11.4 H (3.8-10.6) k/uL RBC 3.20 L (3.80-5.40) m/uL Hgb 9.7 L (11.4-16.0) gm/dL Hct 30.0 L (34.0-46.0) % RDW 16.4 H (11.5-15.5) % PT 24.1 H (9.0-12.0) sec INR 2.7 H (<1.2) Chloride 96 L (98-107) mmol/L BUN 73 H (7-17) mg/dL Creatinine 3.10 H (0.52-1.04) mg/dL POC Glucose (mg/dL) (75-99) mg/dL AST 44 H (14-36) U/L ALT 56 H (9-52) U/L Total Protein 6.2 L (6.3-8.2) g/dL 02/10/18 Range/Units 11:57 WBC (3.8-10.6) k/uL RBC (3.80-5.40) m/uL Hgb (11.4-16.0) gm/dL Hct (34.0-46.0) % RDW (11.5-15.5) % PT (9.0-12.0) sec INR (<1.2) Chloride (98-107) mmol/L BUN (7-17) mg/dL Creatinine (0.52-1.04) mg/dL POC Glucose (mg/dL) 120 H (75-99) mg/dL AST (14-36) U/L ALT (9-52) U/L Total Protein (6.3-8.2) g/dL Assessment and Plan Assessment: Acute non-ST elevated CO. Status post Cardiac catheterization showed triple- vessel disease. Status post quadruple bypass graft on 01/31/2018 Paroxsymal Atrial fibrillation with rapid ventricular rate. Currently on low- dose metoprolol and amiodarone, anticoagulated on Coumadin. Acute renal failure due to ATN , improving Exertional shortness of breath for 2 weeks prior to admission Acute CHF with systolic dysfunction Severe ischemic cardio myopathy Leukocytosis. Likely reactive. Hypertension hyperlipidemia Obesity DVT prophylaxis Anemia, iron deficient Plan: Continue on current medication regime , monitoring and symptomatic treatment. Discharge planning in progress as per cardiothoracic surgery .Diuretics as per nephrology. Aggressive pulmonary toileting. Further recommendations to follow. The impression and plan of care has been dictated as directed. : I performed a history and examination of this patient, discussed the same with the dictator. I agree with the dictator's note ,documented as a scribe. Any additional findings or plans will be noted.
[2018-02-17] MEDS ORDERED: AMIODARONE 200 MG TAB PO SCH (09:00)
== END 2018-02-10 16:39 | disposition home health service (06) | DRG 233 ==
LOC: EC 09:54 → 6SEL 13:08 → 6ICU 14:30 → 6SEL 02-07 16:46
PROVIDERS: ADMIT Hospitalist; ATTEND Surgery
PROC: 4A023N7 Measurement of Cardiac Sampling and Pressure, Left Heart, Percutaneous Approach (ICD-10-PCS; principal; 2018-01-27 13:25)
PROC: B2111ZZ Fluoroscopy of Multiple Coronary Arteries using Low Osmolar Contrast (ICD-10-PCS; principal; 2018-01-27 13:25)
PROC: 06BP4ZZ Excision of Right Saphenous Vein, Percutaneous Endoscopic Approach (ICD-10-PCS; 2018-01-31 08:00)
PROC: 021209W Bypass Coronary Artery, Three Arteries from Aorta with Autologous Venous Tissue, Open Approach (ICD-10-PCS; 2018-01-31 08:00)
PROC: 5A1221Z Performance of Cardiac Output, Continuous (ICD-10-PCS; 2018-01-31 08:00)
PROC: 02100Z9 Bypass Coronary Artery, One Artery from Left Internal Mammary, Open Approach (ICD-10-PCS; 2018-01-31 08:00)
PROC: B246ZZ4 Ultrasonography of Right and Left Heart, Transesophageal (ICD-10-PCS; 2018-01-31 08:00)
PROC: 4A0305C Measurement of Arterial Flow, Coronary, Open Approach (ICD-10-PCS; 2018-01-31 08:00)
DX: I21.4 Non-ST elevation (NSTEMI) myocardial infarction (principal); I50.23 Acute on chronic systolic (congestive) heart failure; N17.0 Acute kidney failure with tubular necrosis; J96.00 Acute respiratory failure, unspecified whether with hypoxia or hypercapnia; E87.5 Hyperkalemia; I95.9 Hypotension, unspecified; E83.39 Other disorders of phosphorus metabolism; I08.1 Rheumatic disorders of both mitral and tricuspid valves; I48.0 Paroxysmal atrial fibrillation; I13.0 Hypertensive heart and chronic kidney disease with heart failure and stage 1 through stage 4 chronic kidney disease, or unspecified chronic kidney disease; J67.9 Hypersensitivity pneumonitis due to unspecified organic dust; J98.11 Atelectasis; K76.1 Chronic passive congestion of liver; J44.9 Chronic obstructive pulmonary disease, unspecified; D50.9 Iron deficiency anemia, unspecified; F17.201 Nicotine dependence, unspecified, in remission; E66.9 Obesity, unspecified; I25.10 Atherosclerotic heart disease of native coronary artery without angina pectoris; Z68.32 Body mass index [BMI] 32.0-32.9, adult; E78.5 Hyperlipidemia, unspecified; I25.2 Old myocardial infarction; I25.5 Ischemic cardiomyopathy; K59.00 Constipation, unspecified; M81.0 Age-related osteoporosis without current pathological fracture; N18.9 Chronic kidney disease, unspecified; R79.1 Abnormal coagulation profile; Z79.01 Long term (current) use of anticoagulants; Z79.02 Long term (current) use of antithrombotics/antiplatelets; Z79.4 Long term (current) use of insulin; Z79.51 Long term (current) use of inhaled steroids; Z79.82 Long term (current) use of aspirin; Z79.899 Other long term (current) drug therapy; Z80.3 Family history of malignant neoplasm of breast; Z82.0 Family history of epilepsy and other diseases of the nervous system; Z82.49 Family history of ischemic heart disease and other diseases of the circulatory system; Z87.01 Personal history of pneumonia (recurrent); Z88.8 Allergy status to other drugs, medicaments and biological substances; R74.0 Nonspecific elevation of levels of transaminase and lactic acid dehydrogenase [LDH]
CPT/HCPCS: 36415; 71045; 71046; 80048; 80051; 80053; 80061; 80074; 81001; 82330; 82550; 82553; 82565; 82728; 82805; 83036; 83540; 83550; 83690; 83735; 83880; 84100; 84132; 84443; 84484; 84520; 84550; 85025; 85027; 85379; 85520; 85610; 85730; 86850; 86891; 86900; 86901; 86920; 87040; 87070; 87086; 87502; 93005; 93306; 93308; 93458; 93922; 93970; 94002; 94003; 94150; 94640; 94760; 96365; 96366; 96372; 96375; 96376; 99291

== ENCOUNTER 2018-02-27 08:37 | Observation (INO) | payer MEDICARE ==
--- NOTE | 2018-02-27 08:57 | ED ---
General Adult HPI - General Chief complaint: Shortness of Breath Stated complaint: High BP Time Seen by Provider: 02/27/18 08:40 Source: patient, family, RN notes reviewed Mode of arrival: wheelchair Limitations: no limitations - History of Present Illness Initial comments: This is a 72-year-old female presents emergency Department a month status post quadruple bypass surgery. Patient states as of yesterday she started having shortness of breath. Patient states any exertion increases or shortness of breath. Patient denies any new chest pain. Patient denies any fever chills so the daughter stated her temperature at home was 99.0. Patient denies any abdominal pain patient denies nausea or vomiting. Patient states she has a tight band sensation around her abdomen which she had prior to the surgery as well. Patient denies headache patient denies numbness weakness patient denies lightheadedness dizziness or near syncopal episode. - Related Data Previous Rx's Medication Instructions Recorded Amiodarone [Cordarone] 200 mg PO BID #14 tablet 02/10/18 Amiodarone [Cordarone] 200 mg PO DAILY #14 tab 02/10/18 Aspirin 81 mg PO DAILY #30 chew 02/10/18 Crestor 40 mg PO HS #30 02/10/18 HYDROcodone/APAP 5-325MG [[place] 1 - 2 each PO Q6HR PRN #60 tab 02/10/18 5-325] Metoprolol Tartrate [Lopressor] 12.5 mg PO BID #60 tab 02/10/18 Pantoprazole [Protonix] 40 mg PO AC-BRKFST #30 tablet. 02/10/18 Sennosides-Docusate Sodium 2 each PO HS #30 tab 02/10/18 [Senokot-S] Warfarin [Coumadin] 2.5 mg PO DAILY #30 tab 02/10/18 Allergies Allergy/AdvReac Type Severity Reaction Status Date / Time atorvastatin calcium Allergy Swelling Verified 02/27/18 08:41 [From Lipitor] benazepril Allergy irregular Verified 02/27/18 08:41 heart rate amlodipine AdvReac muscle Verified 02/27/18 08:41 cramps Review of Systems ROS Statement: Those systems with pertinent positive or pertinent negative responses have been documented in the HPI. ROS Other: All systems not noted in ROS Statement are negative. 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 History of Any Multi-Drug Resistant Organisms: None Reported Past Surgical History: Coronary Bypass/CABG Additional Past Surgical History / Comment(s): "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, D&C-vaginal polyps. Past Anesthesia/Blood Transfusion Reactions: No Reported Reaction Past Psychological History: No Psychological Hx Reported Smoking Status: Former smoker Past Alcohol Use History: Rare Past Drug Use History: None Reported - Past Family History Mother Family Medical History: Myocardial Infarction ([place]) ( from myocardial infarction at age 69.) Father Family Medical History: Myocardial Infarction ([place]) ( from a pericardial infarction at age 69) Brother(s) Family Medical History: Neurologic Disorder (Multiple sclerosis) Sister(s) Family Medical History: Cancer (Breast and uterine), Myocardial Infarction ([place]) (At age 68) General Exam - General Exam Comments Initial Comments: GENERAL: Patient is well-developed and well-nourished. Patient is nontoxic and well- hydrated and is in mild distress. ENT: Neck is soft and supple. No significant lymphadenopathy is noted. Oropharynx is clear. Moist mucous membranes. Neck has full range of motion without eliciting any pain. EYES: The sclera were anicteric and conjunctiva were pink and moist. Extraocular movements were intact and pupils were equal round and reactive to light. Eyelids were unremarkable. PULMONARY: Unlabored respirations. Good breath sounds bilaterally. No audible rales rhonchi or wheezing was noted. CARDIOVASCULAR: There is a regular rate and rhythm without any murmurs gallops or rubs. ABDOMEN: Soft and nontender with normal bowel sounds. No palpable organomegaly was noted. There is no palpable pulsatile mass. SKIN: Skin is clear with no lesions or rashes and otherwise unremarkable. NEUROLOGIC: Patient is alert and oriented x3. Cranial nerves II through XII are grossly intact. Motor and sensory are also intact. Normal speech, volume and content. Symmetrical smile. MUSCULOSKELETAL: Normal extremities with adequate strength and full range of motion. Patient's edema of the right leg which she states is been ongoing since his surgery. Patient has no calf tenderness. LYMPHATICS: No significant lymphadenopathy is noted PSYCHIATRIC: Normal psychiatric evaluation. Normal interpersonal interactions appears functionally intact in deals appropriately with others. No signs of depression. No signs of anxiety. Limitations: no limitations Course Vital Signs 02/27/18 02/27/18 02/27/18 08:39 09:14 09:50 Temperature 99.0 F Pulse Rate 87 75 Respiratory 20 20 16 Rate Blood Pressure 174/72 153/70 O2 Sat by Pulse 86 L 98 Oximetry 02/27/18 10:55 Temperature Pulse Rate 79 Respiratory 18 Rate Blood Pressure 157/78 O2 Sat by Pulse 98 Oximetry Medical Decision Making - Medical Decision Making EKG shows a normal sinus rhythm at 80 bpm MA interval is 126 QRS is 98 QT interval 380 QTC is 469. Compared to an old EKG there are no significant changes. Chest x-ray shows possible CHF. CAT scan of the chest shows no pulmonary embolus about changes consistent with heart failure. I spoke with Dr. Hernandez agreed to admit the patient admitted the patient I consult the [facility] as surgery. - Lab Data Result diagrams: 02/27/18 09:10 02/27/18 09:10 Lab Results 02/27/18 02/27/18 02/27/18 Range/Units 09:10 09:10 09:10 WBC 10.3 (3.8-10.6) k/uL RBC 3.37 L (3.80-5.40) m/uL Hgb 10.2 L (11.4-16.0) gm/dL Hct 31.8 L (34.0-46.0) % MCV 94.3 (80.0-100.0) fL MCH 30.1 (25.0-35.0) pg MCHC 32.0 (31.0-37.0) g/dL RDW 16.1 H (11.5-15.5) % Plt Count 248 (150-450) k/uL Neutrophils % 88 % Lymphocytes % 4 % Monocytes % 5 % Eosinophils % 2 % Basophils % 0 % Neutrophils # 9.1 H (1.3-7.7) k/uL Lymphocytes # 0.4 L (1.0-4.8) k/uL Monocytes # 0.5 (0-1.0) k/uL Eosinophils # 0.2 (0-0.7) k/uL Basophils # 0.0 (0-0.2) k/uL Anisocytosis Slight PT (9.0-12.0) sec INR (<1.2) APTT (22.0-30.0) sec D-Dimer (<0.60) mg/L FEU Sodium 144 (137-145) mmol/L Potassium 3.5 (3.5-5.1) mmol/L Chloride 106 (98-107) mmol/L Carbon Dioxide 21 L (22-30) mmol/L Anion Gap 17 mmol/L BUN 18 H (7-17) mg/dL Creatinine 0.90 (0.52-1.04) mg/dL Est GFR (CKD-EPI)AfAm 75 (>60 ml/min/1.73 sqM) Est GFR (CKD-EPI)NonAf 65 (>60 ml/min/1.73 sqM) Glucose 98 (74-99) mg/dL Calcium 9.5 (8.4-10.2) mg/dL Magnesium 1.7 (1.6-2.3) mg/dL Total Bilirubin 1.2 (0.2-1.3) mg/dL AST 21 (14-36) U/L ALT 22 (9-52) U/L Alkaline Phosphatase 73 (38-126) U/L Total Creatine Kinase 31 (30-135) U/L CK-MB (CK-2) 1.4 (0.0-2.4) ng/mL CK-MB (CK-2) Rel Index 4.5 Troponin I 0.066 H* (0.000-0.034) ng/mL NT-Pro-B Natriuret Pep pg/mL Total Protein 6.4 (6.3-8.2) g/dL Albumin 3.7 (3.5-5.0) g/dL 02/27/18 02/27/18 Range/Units 09:10 09:10 WBC (3.8-10.6) k/uL RBC (3.80-5.40) m/uL Hgb (11.4-16.0) gm/dL Hct (34.0-46.0) % MCV (80.0-100.0) fL MCH (25.0-35.0) pg MCHC (31.0-37.0) g/dL RDW (11.5-15.5) % Plt Count (150-450) k/uL Neutrophils % % Lymphocytes % % Monocytes % % Eosinophils % % Basophils % % Neutrophils # (1.3-7.7) k/uL Lymphocytes # (1.0-4.8) k/uL Monocytes # (0-1.0) k/uL Eosinophils # (0-0.7) k/uL Basophils # (0-0.2) k/uL Anisocytosis PT 18.5 H (9.0-12.0) sec INR 2.0 H (<1.2) APTT 29.5 (22.0-30.0) sec D-Dimer 1.92 H (<0.60) mg/L FEU Sodium (137-145) mmol/L Potassium (3.5-5.1) mmol/L Chloride (98-107) mmol/L Carbon Dioxide (22-30) mmol/L Anion Gap mmol/L BUN (7-17) mg/dL Creatinine (0.52-1.04) mg/dL Est GFR (CKD-EPI)AfAm (>60 ml/min/1.73 sqM) Est GFR (CKD-EPI)NonAf (>60 ml/min/1.73 sqM) Glucose (74-99) mg/dL Calcium (8.4-10.2) mg/dL Magnesium (1.6-2.3) mg/dL Total Bilirubin (0.2-1.3) mg/dL AST (14-36) U/L ALT (9-52) U/L Alkaline Phosphatase (38-126) U/L Total Creatine Kinase (30-135) U/L CK-MB (CK-2) (0.0-2.4) ng/mL CK-MB (CK-2) Rel Index Troponin I (0.000-0.034) ng/mL NT-Pro-B Natriuret Pep 40315 pg/mL Total Protein (6.3-8.2) g/dL Albumin (3.5-5.0) g/dL Disposition Clinical Impression: Acute pulmonary edema Disposition: ADMITTED IP TO THIS HOSP Referrals: Ramón Pollack MD [Primary Care Provider] - 1-2 days Time of Disposition: 12:44
--- NOTE | 2018-02-27 09:34 | XR ---
EXAMINATION TYPE: XR chest 2V DATE OF EXAM: 02/27/2018 HISTORY: difficulty breathing. REFERENCE: Previous study dated 03/23/2018. FINDINGS: There has been a midline sternotomy. The heart is mildly prominent. There is a small left effusion. There is mild atelectatic change prese nt at both lung bases. There has not been a significant interval change in the appearance of the ches t. IMPRESSION: NO SIGNIFICANT INTERVAL CHANGE IN THE APPEARANCE OF THE CHEST.
[2018-02-27 09:35] LABS: Albumin 3.7 g/dL (3.5-5.0); Calcium 9.5 mg/dL (8.4-10.2); Magnesium 1.7 mg/dL (1.6-2.3); Potassium 3.5 mmol/L (3.5-5.1); Total Bilirubin 1.2 mg/dL (0.2-1.3); Total Protein 6.4 g/dL (6.3-8.2)
[2018-02-27 09:37] LABS: Anisocytosis Slight; Basophils % (A) 0 %; Eosinophils # (A) 0.2 k/uL (0-0.7); Eosinophils % (A) 2 %; HCT 31.8 % (34.0-46.0); HGB 10.2 gm/dL (11.4-16.0); Lymphocytes # (A) 0.4 k/uL (1.0-4.8); Lymphocytes % (A) 4 %; MCH 30.1 pg (25.0-35.0); MCV 94.3 fL (80.0-100.0); Monocytes # (A) 0.5 k/uL (0-1.0); Monocytes % (A) 5 %; Neutrophils # (A) 9.1 k/uL (1.3-7.7); Neutrophils % (A) 88 %; Platelet Count 248 k/uL (150-450); RBC 3.37 m/uL (3.80-5.40); RDW 16.1 % (11.5-15.5); WBC 10.3 k/uL (3.8-10.6)
[2018-02-27 09:40] LABS: Partial Thromboplastin Time 29.5 sec (22.0-30.0); Prothrombin Time 18.5 sec (9.0-12.0)
[2018-02-27 09:55] LABS: Creatine Kinase MB 1.4 ng/mL (0.0-2.4); D-Dimer 1.92 mg/L FEU (<0.60)
[2018-02-27] MEDS ORDERED: RX INFO: IV CONTRAST WAS GIVEN 1 EACH MISC MISCELLANE PRN (09:55)
[2018-02-27 09:56] LABS: Troponin I 0.066 ng/mL (0.000-0.034)
[2018-02-27] MEDS ORDERED: MORPHINE SULFATE 4 MG/ML SYRINGE IVP STA (11:13)
--- NOTE | 2018-02-27 12:01 | CT ---
EXAMINATION TYPE: CT chest angio for PE DATE OF EXAM: 02/27/2018 COMPARISON: NONE HISTORY: Chest pain and Shortness of breath. Decreased O2 saturation. Post OP CABG [address] DLP: 428.2 mGycm Automated exposure control for dose reduction was used. CONTRAST: CT Chest for pulmonary embolism performed with with IV Contrast, patient injected with 80 mL of Isovu e 370. FINDINGS: There is severe changes of emphysema throughout the lungs. There is diffuse groundglass opa city which may represent ongoing alveolitis, pneumonitis or congestive heart failure. There is consol idation in the left lower lobe. There are bilateral effusions, greater on the left than the right. There is no significant axillary or internal mammary adenopathy. There is some mediastinal adenopathy . The largest lymph node measures just over 1 cm. There is some right hilar adenopathy. There is no evidence of pulmonary embolus. The heart is enlarged. There is no pericardial fluid. The aorta is normal in caliber without evidence of dissection. There is mild hypertrophic spondylosis within the spine. IMPRESSION: 1. THIS EXAMINATION IS NEGATIVE FOR PULMONARY EMBOLUS. 2. SEVERE CHANGES OF EMPHYSEMA. 3. DIFFUSE GROUNDGLASS OPACITY THROUGHOUT THE LUNGS WHICH MAY REPRESENT PNEUMONITIS, ALVEOLITIS OR CO NGESTIVE HEART FAILURE. 4. CARDIOMEGALY. 5. CONSOLIDATION IN THE LEFT LOWER LOBE, MAY REPRESENT PNEUMONIA. 6. MILD DEGENERATIVE CHANGE IN THE SPINE.
[2018-02-27] MEDS ORDERED: FUROSEMIDE 10 MG/ML 4 ML VIAL IV STA (12:43)
[2018-02-27] MEDS ORDERED: ASPIRIN 325 MG TAB PO STA (12:45)
[2018-02-27] MEDS: HYDROcodone/APAP 5-325MG 1 EACH TAB PO PRN (17:49)
--- NOTE | 2018-02-27 17:56 | P.HPIM ---
History of Present Illness H&P Date: 02/27/18 Chief Complaint: Shortness of breath/elevated blood pressure This is a 72-year-old female presents emergency Department a month status post quadruple bypass surgery. Patient states as of yesterday she started having shortness of breath. Patient states any exertion increases or shortness of breath. Patient denies any new chest pain. Patient denies any fever chills so the daughter stated her temperature at home was 99.0. Patient denies any abdominal pain patient denies nausea or vomiting. Patient states she has a tight band sensation around her abdomen which she had prior to the surgery as well. Patient denies headache patient denies numbness weakness patient denies lightheadedness dizziness or near syncopal episode. Review of Systems Constitutional: Reports sweats, Denies anorexia, Denies chills, Denies fever Eyes: denies blurred vision, denies diplopia, denies discharge Ears: deny: decreased hearing, ear discharge Ears, nose, mouth and throat: Denies headache, Denies voice changes Cardiovascular: Reports dyspnea on exertion, Reports high blood pressure, Reports shortness of breath, Denies rapid heart beat Respiratory: Reports cough, Denies cough with sputum, Denies excessive sputum Gastrointestinal: Denies diarrhea, Denies nausea, Denies vomiting Genitourinary: Denies dysuria, Denies hematuria Musculoskeletal: Denies muscle cramps, Denies muscle weakness Neurological: Reports confusion, Denies ataxia, Denies double vision, Denies loss of vision, Denies numbness Psychiatric: Denies confusion, Denies depression, Denies difficulty concentrating Endocrine: Denies excessive thirst, Denies heat intolerance Hematologic/Lymphatic: Denies lymphadenopathy Allergic/Immunologic: Denies anaphylaxis, Denies persistent infections Past Medical History Past Medical History: Coronary Artery Disease (CAD), Hyperlipidemia, Hypertension, Pneumonia, Respiratory Disorder Additional Past Medical History / Comment(s): Gout, obesity with an admission BMI of 32.9 kg/m, 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 History of Any Multi-Drug Resistant Organisms: None Reported Past Surgical History: Coronary Bypass/CABG Additional Past Surgical History / Comment(s): "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, D&C-vaginal polyps. Past Anesthesia/Blood Transfusion Reactions: No Reported Reaction Past Psychological History: No Psychological Hx Reported Smoking Status: Former smoker Past Alcohol Use History: Rare Additional Past Alcohol Use History / Comment(s): patient stopped smoking 30 years ago Past Drug Use History: None Reported - Past Family History Mother Family Medical History: Myocardial Infarction ([place]) Father Family Medical History: [place]ocardial Infarction [place]) Brother(s) Family Medical History: Neurologic Disorder Sister(s) Family Medical History: Cancer, Myocardial Infarction ([place]) Medications and Allergies Home Medications Medication Instructions Recorded Confirmed Type Amiodarone [Cordarone] 200 mg PO DAILY #14 tab 02/10/18 02/27/18 Rx Aspirin 81 mg PO DAILY #30 chew 02/10/18 02/27/18 Rx Pantoprazole [Protonix] 40 mg PO AC-BRKFST #30 tablet.dr 02/10/18 02/27/18 Rx Warfarin [Coumadin] 2.5 mg PO DAILY #30 tab 02/10/18 02/27/18 Rx HYDROcodone/APAP 5-325MG [[place] 1 - 2 tab PO Q6HR PRN 02/27/18 02/27/18 History 5-325] Metoprolol Tartrate [Lopressor] 12.5 mg PO BID 02/27/18 02/27/18 History Sennosides-Docusate Sodium 1 tab PO DAILY 02/27/18 02/27/18 History [Senokot-S] Allergies Allergy/AdvReac Type Severity Reaction Status Date / Time atorvastatin calcium Allergy Swelling Verified 02/27/18 13:10 [From Lipitor] benazepril Allergy irregular Verified 02/27/18 13:10 heart rate amlodipine AdvReac muscle Verified 02/27/18 13:10 cramps Physical Exam Vitals: Vital Signs Temp Pulse Resp BP Pulse Ox 02/27/18 14:54 71 16 152/74 98 02/27/18 13:00 79 18 161/79 96 02/27/18 10:55 79 18 157/78 98 02/27/18 09:50 75 16 153/70 98 02/27/18 09:14 20 02/27/18 08:39 99.0 F 87 20 174/72 86 L Intake and Output 02/27/18 02/27/18 02/27/18 06:59 14:59 22:59 Other: # Voids 1 Weight 76.204 kg - Constitutional General appearance: Present: average body habitus, cooperative, no acute distress - EENT Eyes: Present: anicteric sclerae, EOMI, PERRLA, normal appearance ENT: Present: hearing grossly normal, normal oropharynx Ears: bilateral: normal - Neck Neck: Present: normal ROM. Absent: lymphadenopathy, rigidity, thyromegaly Carotids: negative: bruit present Thyroid: bilateral: normal size, negative: enlarged, nodule - Respiratory Respiratory: bilateral: CTA, negative: rales, rhonchi, wheezing - Cardiovascular Rhythm: regular Heart sounds: normal: S1, S2 Abnormal Heart Sounds: Absent: systolic murmur, diastolic murmur - Gastrointestinal General gastrointestinal: Present: normal bowel sounds, soft. Absent: distended , organomegaly, tenderness - Genitourinary Genitourinary Comment(s): deferred - Integumentary Integumentary: Present: normal turgor. Absent: jaundiced, rash, ulcer - Neurologic Neurologic: Present: CNII-XII intact. Absent: focal deficits - Musculoskeletal Musculoskeletal: Present: gait normal, strength equal bilaterally - Psychiatric Psychiatric: Present: A&O x's 3, appropriate affect, intact judgment & insight Results CBC & Chem 7: 02/27/18 09:10 02/27/18 09:10 Labs: Abnormal Lab Results - Last 24 Hours (Table) 02/27/18 02/27/18 02/27/18 Range/Units 09:10 09:10 09:10 RBC 3.37 L (3.80-5.40) m/uL Hgb 10.2 L (11.4-16.0) gm/dL Hct 31.8 L (34.0-46.0) % RDW 16.1 H (11.5-15.5) % Neutrophils # 9.1 H (1.3-7.7) k/uL Lymphocytes # 0.4 L (1.0-4.8) k/uL PT (9.0-12.0) sec INR (<1.2) D-Dimer (<0.60) mg/L FEU Carbon Dioxide 21 L (22-30) mmol/L BUN 18 H (7-17) mg/dL Troponin I 0.066 H* (0.000-0.034) ng/mL 02/27/18 Range/Units 09:10 RBC (3.80-5.40) m/uL Hgb (11.4-16.0) gm/dL Hct (34.0-46.0) % RDW (11.5-15.5) % Neutrophils # (1.3-7.7) k/uL Lymphocytes # (1.0-4.8) k/uL PT 18.5 H (9.0-12.0) sec INR 2.0 H (<1.2) D-Dimer 1.92 H (<0.60) mg/L FEU Carbon Dioxide (22-30) mmol/L BUN (7-17) mg/dL Troponin I (0.000-0.034) ng/mL Thrombosis Risk Factor Assmnt - Choose All That Apply Each Factor Represents 1 point: History of prior major surgery (<1month), Serious lung disease incl. pneumonia (< 1month) Each Risk Factor Represents 2 Points: Age 61-74 years Thrombosis Risk Factor Assessment Total Risk Factor Score: 4 Thrombosis Risk Factor Assessment Level: Moderate Risk Assessment and Plan Assessment: 1. Acute pulmonary edema - We will admit patient to selective care unit - Monitor cardiac enzymes and EKG - We will monitor strict I&O's and daily weights - We will order 2-D echocardiogram - Start patient on Lasix 40 mg IV every 12 hours - Consult cardiology; we appreciate their expertise and management of this patient 2. Anemia; - patient hemoglobin is 10.2 upon presentation to ED - We will monitor H&H every 12 hours - Order iron studies and treat accordingly - We will order stool occult blood - Type and crossmatch and transfuse if less than 7 3. Mild renal injury - We will monitor renal function closely - No IV fluids secondary to CHF - Monitor strict DANIEL's, renal function and electrolytes - Avoid nephrotoxins and hypotension 4. Uncontrolled hypertension; - We will resume current home medications and monitor blood pressure closely - Recommending adjusting antihypertensive medications if remains BP elevated 5. Coronary artery disease/ CABG; we will continue with aspirin - Cardiology to see patient and make recommendations 6. Hyperlipidemia; we will order repeat lipid profile 7. DVT prophylaxis; SCDs/subcu heparin CODE STATUS; full code
[2018-02-27] MEDS: METOPROLOL TARTRATE 12.5 MG TAB PO SCH (20:14)
[2018-02-27] MEDS: WARFARIN 2.5 MG TAB PO SCH (20:14)
[2018-02-27] MEDS: FUROSEMIDE 10 MG/ML 4 ML VIAL IV SCH (20:14)
[2018-02-27] MEDS ORDERED: HEPARIN SODIUM,PORCINE 5,000 UNIT/ML 1 ML VIAL SQ SCH (21:00)
[2018-02-28] MEDS: HYDROcodone/APAP 5-325MG 1 EACH TAB PO PRN ×2 (04:49→15:35)
[2018-02-28 06:54] LABS: Basophils # (A) 0.1 k/uL (0-0.2); Basophils % (A) 1 %; Eosinophils # (A) 0.5 k/uL (0-0.7); Eosinophils % (A) 8 %; HCT 30.7 % (34.0-46.0); HGB 9.7 gm/dL (11.4-16.0); Hypochromasia Slight; Lymphocytes # (A) 0.5 k/uL (1.0-4.8); Lymphocytes % (A) 8 %; MCH 29.7 pg (25.0-35.0); MCHC 31.5 g/dL (31.0-37.0); MCV 94.4 fL (80.0-100.0); Mean Platelet Volume 7.1; Monocytes # (A) 0.5 k/uL (0-1.0); Monocytes % (A) 8 %; Neutrophils # (A) 4.6 k/uL (1.3-7.7); Neutrophils % (A) 73 %; Platelet Count 245 k/uL (150-450); RBC 3.26 m/uL (3.80-5.40); RDW 15.8 % (11.5-15.5); WBC 6.3 k/uL (3.8-10.6)
[2018-02-28 07:09] LABS: Calcium 9.2 mg/dL (8.4-10.2)
[2018-02-28 07:18] LABS: Potassium 2.9 mmol/L (3.5-5.1)
[2018-02-28] MEDS ORDERED: PANTOPRAZOLE 40 MG TABLET PO SCH (07:30)
[2018-02-28] MEDS ORDERED: Potassium Replacement Protocol 1 EACH MISC MISCELLANE PRN (07:34)
[2018-02-28] MEDS ORDERED: Magnesium Replacement Protocol 1 EACH MISC MISCELLANE PRN (07:34)
[2018-02-28 08:10] VITALS: RESP 18
[2018-02-28] MEDS ORDERED: ASPIRIN 81 MG PO SCH (09:00)
[2018-02-28] MEDS ORDERED: AMIODARONE 200 MG TAB PO SCH (09:00)
[2018-02-28] MEDS ORDERED: SENNOSIDES-DOCUSATE SODIUM 1 EACH TAB PO SCH (09:00)
[2018-02-28] MEDS: POTASSIUM CHLORIDE ER 20 MEQ TAB.ER PO SCH ×3 (09:01→11:13)
[2018-02-28] MEDS: MAGNESIUM SULFATE-D5W PMX 1 GM in DEXTROSE/WATER 1 100ML.BAG IVPB SCH ×2 (09:01→10:19)
[2018-02-28] MEDS: METOPROLOL TARTRATE 12.5 MG TAB PO SCH (09:03)
[2018-02-28] MEDS: FUROSEMIDE 10 MG/ML 4 ML VIAL IV SCH (09:03)
[2018-02-28 11:33] LABS: Iron Saturation 7.95 (12.00-45.00)
[2018-02-28 11:46] VITALS: BMI 29.9
[2018-02-28] MEDS ORDERED: LOSARTAN 25 MG TAB PO SCH (15:00)
[2018-02-28 15:49] VITALS: BP 155/70; PULSE 83; TEMP 97.4
[2018-02-28] MEDS: WARFARIN 2.5 MG TAB PO SCH (17:14)
[2018-02-28] MEDS ORDERED: FERROUS SULFATE 325 MG TAB PO SCH (17:30)
== END 2018-02-28 19:23 | disposition home health service (06) ==
LOC: EC 08:37 → 6SEL 12:45
PROVIDERS: ADMIT Internal Medicine; ATTEND Internal Medicine
DX: J81.0 Acute pulmonary edema (principal); D64.9 Anemia, unspecified; N28.9 Disorder of kidney and ureter, unspecified; I11.0 Hypertensive heart disease with heart failure; I50.9 Heart failure, unspecified; Z95.1 Presence of aortocoronary bypass graft; I25.10 Atherosclerotic heart disease of native coronary artery without angina pectoris; E78.5 Hyperlipidemia, unspecified; Z87.01 Personal history of pneumonia (recurrent); M10.9 Gout, unspecified; Z68.32 Body mass index [BMI] 32.0-32.9, adult; E66.9 Obesity, unspecified; J67.2 Bird fancier's lung; Z87.891 Personal history of nicotine dependence; Z79.82 Long term (current) use of aspirin; Z79.899 Other long term (current) drug therapy; Z79.01 Long term (current) use of anticoagulants; Z88.8 Allergy status to other drugs, medicaments and biological substances; Z82.0 Family history of epilepsy and other diseases of the nervous system; Z80.3 Family history of malignant neoplasm of breast; Z80.8 Family history of malignant neoplasm of other organs or systems
CPT/HCPCS: 99285; 96375 ×3; 96376 ×2; 96365; 96366; 36415; 93005; 85379; 83880; 80053; 80048; 80061; 82550; 82553; 83540; 83550; 83735; 84132; 84484; 85025 ×2; 85610; 85730; 71046; 71275; G0378 ×2; J2270; J1940 ×2; J3475; Q9967

== ENCOUNTER → 2018-04-01 | Outpatient (CLI) | payer MEDICARE ==
--- NOTE | 2018-04-01 09:50 | US ---
EXAMINATION TYPE: US venous doppler duplex LE DATE OF EXAM: 04/01/2018 9:36 AM COMPARISON: NONE CLINICAL HISTORY: R22.43 Leg swelling since CABG 2 months ago and right > left leg with Greater Saphe nous Vein (GSV) harvest right leg; on Coumadin; bruising to right posterior calf since GSV harvest. SIDE PERFORMED: Bilateral TECHNIQUE: The lower extremity deep venous system is examined utilizing real time linear array sonog randal with graded compression, doppler sonography and color-flow sonography. VESSELS IMAGED: Common Femoral Vein Deep Femoral Vein Greater Saphenous Vein * Femoral Vein Popliteal Vein Small Saphenous Vein * Proximal Calf Veins (* superficial vessels) Grayscale, color doppler, spectral doppler imaging performed of the deep veins of the lower extremiti es. There is normal flow, compressibility, vascular waveforms. Right Leg: Negative for DVT. Just distal to harvest site of superficial Greater Saphenous Vein (GSV) at mid calf pain is non compressible GSV coursing distally to above ankle. At patient's c/o calf bru ising oval hypoechoic areas are noted posterior to skin color changes for size of 5.6 x 2.9 x 0.8cm. Left Leg: Negative for DVT, Thickened valves are noted at upper Femoral Vein. IMPRESSION: 1. No sonographic evidence of acute deep venous thrombosis within either lower extremity. 2. Superficial venous thrombosis within the remaining greater saphenous vein distal to the harvest si te of the superficial greater saphenous vein. 3. 5.6 x 2.9 x 0.8 cm predominantly avascular irregularly marginated hypoechoic region at the site of pain and bruising. This could represent resolving hematoma and clinical surveillance is recommended. 4. Thickened valves noted of the left upper femoral incidentally without thrombosis.
== END | disposition home or self-care (01) ==
LOC: RADUSWWP 08:43
PROVIDERS: ATTEND Internal Medicine Clinical Cardiac Electrophysiology
DX: I82.819 Embolism and thrombosis of superficial veins of unspecified lower extremity (principal); S80.11XA Contusion of right lower leg, initial encounter
CPT/HCPCS: 93970

== ENCOUNTER → 2018-05-02 | Outpatient (CLI) | payer MEDICARE ==
[2018-05-02 08:07] LABS: HCT 42.4 % (34.0-46.0); MCH 29.9 pg (25.0-35.0); MCHC 32.8 g/dL (31.0-37.0); MCV 91.2 fL (80.0-100.0); Mean Platelet Volume 7.2; Platelet Count 234 k/uL (150-450); RBC 4.65 m/uL (3.80-5.40); RDW 14.5 % (11.5-15.5); WBC 8.7 k/uL (3.8-10.6)
[2018-05-02 08:12] LABS: HGB 13.9 gm/dL (11.4-16.0)
[2018-05-02 08:29] LABS: Albumin 4.3 g/dL (3.5-5.0); Calcium 9.9 mg/dL (8.4-10.2); Magnesium 2.3 mg/dL (1.6-2.3); Phosphorus 4.4 mg/dL (2.5-4.5); Potassium 4.4 mmol/L (3.5-5.1); Total Bilirubin 0.6 mg/dL (0.2-1.3); Total Protein 7.3 g/dL (6.3-8.2); Uric Acid 7.9 mg/dL (3.7-7.4)
[2018-05-02 09:10] LABS: Creatinine,Urine Random 222.5 mg/dL
[2018-05-02 11:07] LABS: Parathyroid Hormone Intact 57.4 pg/mL (14.0-72.0)
[2018-05-02 12:15] LABS: Iron Saturation 23.45 (12.00-45.00)
== END | disposition home or self-care (01) ==
LOC: LABWHC1 07:35
PROVIDERS: ATTEND Nurse Practitioner Family
DX: E55.9 Vitamin D deficiency, unspecified (principal); D64.9 Anemia, unspecified; N17.9 Acute kidney failure, unspecified; E21.3 Hyperparathyroidism, unspecified; M10.9 Gout, unspecified; R80.9 Proteinuria, unspecified
CPT/HCPCS: 36415; 80053; 82306; 82570; 82728; 83540; 83550; 83735; 83970; 84100; 84156; 84550; 85027

== ENCOUNTER 2018-05-20 08:03 | Inpatient (IN) | payer MEDICARE ==
[2018-05-20] MEDS ORDERED: MORPHINE SULFATE 4 MG/ML SYRINGE IVP STA (08:26)
[2018-05-20] MEDS ORDERED: ASPIRIN 325 MG TAB PO STA ×2 (08:26→09:17)
[2018-05-20] MEDS ORDERED: NITROGLYCERIN SL TABS 0.4 MG TAB SUBLINGUAL STA (08:31)
--- NOTE | 2018-05-20 08:33 | ED ---
General Adult HPI - General Chief complaint: Chest Pain Stated complaint: SOB, Chest Pain Time Seen by Provider: 05/20/18 08:11 Source: patient, RN notes reviewed, old records reviewed Mode of arrival: wheelchair Limitations: no limitations - History of Present Illness Initial comments: 72-year-old female history of CAD status post coronary artery bypass graft in January 2018 presents for evaluation of chest pain. Patient presents with 1 hour history of central chest pain which she describes as a pressure sensation. She' s had some dyspnea and nausea associated with this. No vomiting. No abdominal pain. Patient describes the pain is central and going to her right side. She is currently on Coumadin. No previous coronary stenting. Pain is moderate at the time of my evaluation. - Related Data Home Medications Medication Instructions Recorded Confirmed HYDROcodone/APAP 5-325MG [[place] 1 - 2 tab PO Q6HR PRN 02/27/18 02/27/18 5-325] Metoprolol Tartrate [Lopressor] 12.5 mg PO BID 02/27/18 02/27/18 Sennosides-Docusate Sodium 1 tab PO DAILY 02/27/18 02/27/18 [Senokot-S] Previous Rx's Medication Instructions Recorded Amiodarone [Cordarone] 200 mg PO DAILY #14 tab 02/10/18 Aspirin 81 mg PO DAILY #30 chew 02/10/18 Pantoprazole [Protonix] 40 mg PO AC-BRKFST #30 tablet. 02/10/18 Warfarin [Coumadin] 2.5 mg PO DAILY #30 tab 02/10/18 Ferrous Sulfate [Iron (65 MG 325 mg PO DAILY #30 tab 02/28/18 Elemental)] Furosemide [Lasix] 20 mg PO BID #60 tab 02/28/18 Losartan [Cozaar] 25 mg PO DAILY #30 tab 02/28/18 Rosuvastatin Calcium [Crestor] 40 mg PO HS #30 tab 02/28/18 Allergies Allergy/AdvReac Type Severity Reaction Status Date / Time atorvastatin calcium Allergy Swelling Verified 05/20/18 08:08 [From Lipitor] benazepril Allergy irregular Verified 05/20/18 08:08 heart rate amlodipine AdvReac muscle Verified 05/20/18 08:08 cramps Review of Systems ROS Statement: Those systems with pertinent positive or pertinent negative responses have been documented in the HPI. ROS Other: All systems not noted in ROS Statement are negative. 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 History of Any Multi-Drug Resistant Organisms: None Reported Past Surgical History: Coronary Bypass/CABG Additional Past Surgical History / Comment(s): "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, D&C-vaginal polyps. Past Anesthesia/Blood Transfusion Reactions: No Reported Reaction Past Psychological History: No Psychological Hx Reported Smoking Status: Former smoker Past Alcohol Use History: Rare Past Drug Use History: None Reported - Past Family History Mother Family Medical History: Myocardial Infarction ([place]) Father Family Medical History: Myocardial Infarction ([place]) Brother(s) Family Medical History: Neurologic Disorder Sister(s) Family Medical History: Cancer, Myocardial Infarction ([place]) General Exam Limitations: no limitations General appearance: alert, in no apparent distress Head exam: Present: atraumatic, normocephalic Eye exam: Present: normal appearance, PERRL ENT exam: Present: normal exam Neck exam: Present: normal inspection. Absent: tenderness, meningismus Respiratory exam: Present: normal lung sounds bilaterally. Absent: respiratory distress, wheezes Cardiovascular Exam: Present: regular rate, normal rhythm GI/Abdominal exam: Present: soft. Absent: distended, tenderness, guarding, rebound Extremities exam: Present: normal inspection, normal capillary refill. Absent: pedal edema Neurological exam: Present: alert, oriented X3, CN II-XII intact. Absent: motor sensory deficit Psychiatric exam: Present: normal affect, normal mood Skin exam: Present: warm, intact. Absent: cyanosis Course Vital Signs 05/20/18 05/20/18 05/20/18 08:05 08:44 09:13 Temperature 97.5 F L Pulse Rate 67 64 59 L Respiratory 18 18 16 Rate Blood Pressure 171/90 141/77 139/66 O2 Sat by Pulse 98 98 97 Oximetry - Reevaluation(s) Reevaluation #1: 05/20/18 [address] Velasco from cardiology. EKG Findings - EKG Comments: EKG Findings:: EKG: Normal sinus rhythm, moderate voltage criteria for LVH, inferior infarct age undetermined with Q waves in the inferior leads. Rate of 62, HI interval 124, QRS duration 98, QTC 444, there is T-wave inversion in inferior leads as well. And ST segment depression in lead 1. Medical Decision Making - Medical Decision Making 72-year-old female history of quadruple vessel CABG presenting with chest pain. Patient does have some EKG changes. Pain is typical in nature. Case discussed with cardiology who is able to evaluate the patient in the emergency department. Laboratory studies reveal subtherapeutic INR, patient is started on heparin. She does have a mildly elevated troponin at 0.037. She will be taken urgently to the [facility] in the next several hours. She is admitted to internal medicine with cardiology on consult. - Lab Data Result diagrams: 05/20/18 08:26 05/20/18 08:26 Lab Results 05/20/18 05/20/18 05/20/18 Range/Units 08:26 08:26 08:26 WBC 7.6 (3.8-10.6) k/uL RBC 4.76 (3.80-5.40) m/uL Hgb 13.7 (11.4-16.0) gm/dL Hct 43.2 (34.0-46.0) % MCV 90.8 (80.0-100.0) fL MCH 28.7 (25.0-35.0) pg MCHC 31.6 (31.0-37.0) g/dL RDW 14.8 (11.5-15.5) % Plt Count 236 (150-450) k/uL Neutrophils % 72 % Lymphocytes % 16 % Monocytes % 5 % Eosinophils % 5 % Basophils % 1 % Neutrophils # 5.5 (1.3-7.7) k/uL Lymphocytes # 1.2 (1.0-4.8) k/uL Monocytes # 0.4 (0-1.0) k/uL Eosinophils # 0.4 (0-0.7) k/uL Basophils # 0.1 (0-0.2) k/uL PT (9.0-12.0) sec INR (<1.2) APTT (22.0-30.0) sec Sodium 142 (137-145) mmol/L Potassium 5.0 (3.5-5.1) mmol/L Chloride 104 (98-107) mmol/L Carbon Dioxide 25 (22-30) mmol/L Anion Gap 13 mmol/L BUN 24 H (7-17) mg/dL Creatinine 1.38 H (0.52-1.04) mg/dL Est GFR (CKD-EPI)AfAm 45 (>60 ml/min/1.73 sqM) Est GFR (CKD-EPI)NonAf 39 (>60 ml/min/1.73 sqM) Glucose 89 (74-99) mg/dL Calcium 10.0 (8.4-10.2) mg/dL Magnesium 2.2 (1.6-2.3) mg/dL Total Bilirubin 0.6 (0.2-1.3) mg/dL AST 29 (14-36) U/L ALT 29 (9-52) U/L Alkaline Phosphatase 60 (38-126) U/L Total Creatine Kinase 47 (30-135) U/L CK-MB (CK-2) 1.0 (0.0-2.4) ng/mL CK-MB (CK-2) Rel Index 2.1 Troponin I 0.037 H* (0.000-0.034) ng/mL Total Protein 7.4 (6.3-8.2) g/dL Albumin 4.5 (3.5-5.0) g/dL Lipase 247 (23-300) U/L 05/20/ Range/Units 08:26 WBC (3.8-10.6) k/uL RBC (3.80-5.40) m/uL Hgb (11.4-16.0) gm/dL Hct (34.0-46.0) % MCV (80.0-100.0) fL MCH (25.0-35.0) pg MCHC (31.0-37.0) g/dL RDW (11.5-15.5) % Plt Count (150-450) k/uL Neutrophils % % Lymphocytes % % Monocytes % % Eosinophils % % Basophils % % Neutrophils # (1.3-7.7) k/uL Lymphocytes # (1.0-4.8) k/uL Monocytes # (0-1.0) k/uL Eosinophils # (0-0.7) k/uL Basophils # (0-0.2) k/uL PT 14.0 H (9.0-12.0) sec INR 1.5 H (<1.2) APTT 28.7 (22.0-30.0) sec Sodium (137-145) mmol/L Potassium (3.5-5.1) mmol/L Chloride (98-107) mmol/L Carbon Dioxide (22-30) mmol/L Anion Gap mmol/L BUN (7-17) mg/dL Creatinine (0.52-1.04) mg/dL Est GFR (CKD-EPI)AfAm (>60 ml/min/1.73 sqM) Est GFR (CKD-EPI)NonAf (>60 ml/min/1.73 sqM) Glucose (74-99) mg/dL Calcium (8.4-10.2) mg/dL Magnesium (1.6-2.3) mg/dL Total Bilirubin (0.2-1.3) mg/dL AST (14-36) U/L ALT (9-52) U/L Alkaline Phosphatase (38-126) U/L Total Creatine Kinase (30-135) U/L CK-MB (CK-2) (0.0-2.4) ng/mL CK-MB (CK-2) Rel Index Troponin I (0.000-0.034) ng/mL Total Protein (6.3-8.2) g/dL Albumin (3.5-5.0) g/dL Lipase (23-300) U/L Critical Care Time Critical Care Time: Yes Total Critical Care Time: 35 Disposition Clinical Impression: NSTEMI (non-ST elevated myocardial infarction) Disposition: ADMITTED IP TO THIS [facility] Condition: Serious Is patient prescribed a controlled substance at d/c from ED?: No Referrals: Ramón Pollack MD [Primary Care Provider] - 1-2 days Decision to Admit Reason: Admit from EC Decision Date: 05/20/18 Decision Time: 09:24
[2018-05-20 08:37] LABS: Basophils # (A) 0.1 k/uL (0-0.2); Basophils % (A) 1 %; Eosinophils # (A) 0.4 k/uL (0-0.7); Eosinophils % (A) 5 %; HCT 43.2 % (34.0-46.0); HGB 13.7 gm/dL (11.4-16.0); Lymphocytes # (A) 1.2 k/uL (1.0-4.8); Lymphocytes % (A) 16 %; MCH 28.7 pg (25.0-35.0); MCHC 31.6 g/dL (31.0-37.0); MCV 90.8 fL (80.0-100.0); Mean Platelet Volume 6.5; Monocytes # (A) 0.4 k/uL (0-1.0); Monocytes % (A) 5 %; Neutrophils # (A) 5.5 k/uL (1.3-7.7); Neutrophils % (A) 72 %; Platelet Count 236 k/uL (150-450); RBC 4.76 m/uL (3.80-5.40); RDW 14.8 % (11.5-15.5); WBC 7.6 k/uL (3.8-10.6)
[2018-05-20 08:54] LABS: INR 1.5 (<1.2); Partial Thromboplastin Time 28.7 sec (22.0-30.0)
[2018-05-20] MEDS ORDERED: NITROGLYCERIN OINT 1 INCH/GM PACKET TOPICAL STA (08:55)
[2018-05-20 08:56] LABS: Albumin 4.5 g/dL (3.5-5.0); Magnesium 2.2 mg/dL (1.6-2.3); Total Bilirubin 0.6 mg/dL (0.2-1.3); Total Protein 7.4 g/dL (6.3-8.2)
[2018-05-20] MEDS ORDERED: FUROSEMIDE 20 MG TAB PO SCH (09:00)
--- NOTE | 2018-05-20 09:10 | CONS ---
CONSULTATION Attending: Dr. Pollack. Mrs. Cutler is a 72-year-old female with a known history of coronary artery disease, status post coronary artery bypass grafting that was performed in January, history of hyperlipidemia, paroxysmal atrial fibrillation, hypertension, who presented with symptoms of chest and jaw discomfort. The patient has underwent coronary artery bypass grafting with DURON to LAD, saphenous vein graft to diagonal, saphenous vein graft to the OM, and saphenous vein graft to the PDA. She had severe ischemic cardiomyopathy at the time of presentation in January with non ST-segment elevation myocardial infarction. She has done quite well from the cardiac standpoint according to her. Her breathing has been stable. Today woke up with severe chest discomfort radiating to the upper chest and to the jaw. She has some dizziness and dyspnea with it. Those symptoms remind her of the way she felt at that time of her presentation. The patient has no symptoms since the surgery until this time. She has been more active physically. She has no PND or orthopnea. She has some peripheral edema in the right lower extremity. She denies any palpitation. She has been anticoagulated because of the paroxysmal atrial fibrillation. MEDICATION: Her medications at home include amiodarone 200 mg daily, aspirin 81 mg daily, Coumadin, Lasix 20 mg twice a day, losartan 25 mg daily, metoprolol tartrate 12.5 mg twice a day, rosuvastatin 40 mg daily. REVIEW OF SYSTEMS: RESPIRATORY SYSTEM: She has no recent wheezing. No cough. No history of documented obstructive lung disease. GI SYSTEM: No recent GI bleeding. No peptic ulcer disease. SYSTEM: No dysuria or hematuria. NERVOUS SYSTEM: No stroke or seizure. PHYSICAL EXAMINATION: This is a 72-year-old female, alert, in mild discomfort. Heart rate in the 60s. Blood pressure 170/80. HEAD: Normocephalic. EYES: Sclerae anicteric. NECK: Good upstroke, no bruit. LUNGS: Clear to auscultation. HEART: Regular rate and rhythm, S1, S2. No S3. No rub. ABDOMEN: Soft, nontender. Positive bowel sounds. No organomegaly. EXTREMITIES: Trace edema on the right side and +2 distal pulses. LAB DATA: Lab data revealed hemoglobin is 13.7, white blood cell 7.6, platelets 236. EKG revealed a sinus mechanism with QS in the inferior leads and mild ST-segment depression in lead I and aVL and minimal ST elevation in lead III on subsequent EKG. The ST elevation and the ST depression have improved. IMPRESSION: 1. Symptoms of chest discomfort, highly suggestive of unstable angina, rule out myocardial infarction. 2. Status post coronary artery bypass grafting in January. 3. Ischemic cardiomyopathy. 4. Paroxysmal atrial fibrillation. 5. Hypertension. 6. Hyperlipidemia. RECOMMENDATION: I will re-initiate treatment with her prior medication. I will obtain echocardiogram with Doppler. I would review her findings with Dr. Cook who has done her cardiac catheterization in the past and I would recommend proceeding with repeat cardiac catheterization to further assess her status and guide her treatment. Thank you for this consult. We will follow with you. MMODL / IJN: [id number] /
--- NOTE | 2018-05-20 09:16 | XR ---
EXAMINATION TYPE: XR chest 2V DATE OF EXAM: 05/20/2018 COMPARISON: 02/27/2018 HISTORY: Chest pain TECHNIQUE: Frontal and lateral views of the chest are obtained. FINDINGS: There is improved aeration of the right lung base in comparison to the prior. There is no f ocal air space opacity, pleural effusion, or pneumothorax seen. The cardiac silhouette size is upper limits of normal. Post CABG changes are noted of the chest. The osseous structures are intact. Mild multilevel degenerative changes of the spine and of the acromioclavicular joints are seen. IMPRESSION: No acute cardiopulmonary process.
[2018-05-20] MEDS ORDERED: NITROGLYCERIN SL TABS 0.4 MG TAB SUBLINGUAL PRN (09:17)
[2018-05-20] MEDS ORDERED: ALPRAZolam 0.5 MG TAB PO PRN (09:17)
[2018-05-20] MEDS ORDERED: ALPRAZolam 0.25 MG TAB PO PRN (09:17)
[2018-05-20] MEDS ORDERED: HEPARIN SODIUM,PORCINE 5,000 UNIT/ML 1 ML VIAL IV PRN (09:18)
[2018-05-20 09:21] LABS: Troponin I 0.037 ng/mL (0.000-0.034)
[2018-05-20] MEDS ORDERED: NALOXONE 0.4 MG/ML 1 ML VIAL IV PRN (09:21)
[2018-05-20] MEDS ORDERED: MORPHINE SULFATE 4 MG/ML SYRINGE IV PRN (09:21)
[2018-05-20] MEDS ORDERED: HEPARIN SOD,PORK IN 0.45% NACL 25,000 UNIT in 0.45% NACL 1 500ML.BAG IV SCH (09:30)
[2018-05-20] MEDS: ASPIRIN 81 MG PO SCH (09:34)
[2018-05-20] MEDS: NITROGLYCERIN OINT 1 INCH/GM PACKET TOPICAL SCH ×2 (09:34→16:19)
[2018-05-20] MEDS: ATORVASTATIN 80 MG TAB PO STA ×2 (09:35→10:24)
[2018-05-20] MEDS: METOPROLOL TARTRATE 12.5 MG TAB PO SCH ×2 (09:45→22:06)
[2018-05-20] MEDS: AMIODARONE 200 MG TAB PO SCH (09:45)
[2018-05-20] MEDS: LOSARTAN 25 MG TAB PO SCH (09:45)
[2018-05-20] MEDS ORDERED: LIDOCAINE 1% INJ 10MG/ML (20 ML MDV) ONE (10:29)
[2018-05-20] MEDS ORDERED: MIDAZOLAM 2 MG/2 ML VIAL ONE (10:36)
[2018-05-20] MEDS ORDERED: IV FLUID CONTINUATION 1,000 ML IV ONE (10:46)
[2018-05-20] MEDS ORDERED: MIDAZOLAM 2 MG/2 ML VIAL IVP ONE ×2 (10:54→11:26)
[2018-05-20] MEDS ORDERED: LIDOCAINE 1% INJ 10MG/ML (20 ML MDV) SQ ONE (11:01)
[2018-05-20] MEDS ORDERED: IOPAMIDOL-370 125ML BTL INJ ONE (11:37)
--- NOTE | 2018-05-20 11:37 | ECHOF ---
Referral Reason:cad MEASUREMENTS -------- HEIGHT: 157.5 cm WEIGHT: 74.4 kg BP: RVIDd: 2.7 cm (< 3.3) IVSd: 1.3 cm (0.6 - 1.1) LVIDd: 5.6 cm (3.9 - 5.3) LVPWd: 1.0 cm (0.6 - 1.1) IVSs: 1.4 cm LVIDs: 4.7 cm LVPWs: 1.5 cm LA Diam: 3.7 cm (2.7 - 3.8) LAESV Index (A-L): 35.60 ml/m Ao Diam: 2.8 cm (2.0 - 3.7) AV Cusp: 1.2 cm (1.5 - 2.6) LA Diam: 3.6 cm (2.7 - 3.8) MV EXCURSION: 16.659 mm (> 18.000) MV EF SLOPE: 73 mm/s (70 - 150) EPSS: 1.7 cm MV E Jose Juan: 0.78 m/s MV DecT: 447 ms MV A Jose Juan: 0.73 m/s MV E/A Ratio: 1.08 RAP: 5.00 mmHg RVSP: 21.00 mmHg FINDINGS -------- Sinus rhythm. This was a techncally difficult study with suboptimal views, , Lumason utilized for enhancement of im ages. The left ventricular size is normal. There is mild concentric left ventricular hypertrophy. Overa ll left ventricular systolic function is moderate-severely impaired with, an EF between 30 - 35 %. Anterseptal Hypokinesis Inferior Hypokinesis Septal Hypokinesis The right ventricle is normal in size. The left atrium is mildly dilated. LA is midly dilated 29-33ml/m2. The right atrial size is normal. 5.0mg OF Lumason UTLIZED: 2 OR MORE WALL SEGMENTS NOT VISUALIZED. There is mild aortic valve sclerosis. There is no evidence of aortic regurgitation. Mild mitral annular calcification present. Mild mitral regurgitation is present. Mild tricuspid regurgitation present. There is no evidence of pulmonary hypertension. The right v entricular systolic pressure, as measured by Doppler, is 21.00mmHg. The pulmonic valve was not well visualized. The aortic root size is normal. There is no pericardial effusion. CONCLUSIONS -------- 1. This was a techncally difficult study with suboptimal views, , Lumason utilized for enhancement of images. 2. The left ventricular size is normal. 3. There is mild concentric left ventricular hypertrophy. 4. Overall left ventricular systolic function is moderate-severely impaired with, an EF between 30 - 35 %. 5. Anterseptal Hypokinesis 6. Inferior Hypokinesis 7. Septal Hypokinesis 8. The right ventricle is normal in size. 9. The left atrium is mildly dilated. 10. LA is midly dilated 29-33ml/m2. 11. The right atrial size is normal. 12. 5.0mg OF Lumason UTLIZED: 2 OR MORE WALL SEGMENTS NOT VISUALIZED. 13. There is mild aortic valve sclerosis. 14. Mild mitral annular calcification present. 15. Mild mitral regurgitation is present. 16. Mild tricuspid regurgitation present. 17. There is no evidence of pulmonary hypertension. 18. The right ventricular systolic pressure, as measured by Doppler, is 21.00mmHg. 19. The pulmonic valve was not well visualized. 20. The aortic root size is normal. 21. There is no pericardial effusion. REGISTERED NURSE FIRST ASSISTANT: Nica Hernandez RDCS
[2018-05-20] MEDS ORDERED: RX INFO: IV CONTRAST WAS GIVEN 1 EACH MISC MISCELLANE PRN (11:38)
[2018-05-20] MEDS ORDERED: SODIUM CHLORIDE 0.9% 1,000 ML IV SCH (11:45)
--- NOTE | 2018-05-20 12:37 | CC ---
CARDIAC CATHETERIZATION REPORT DATE OF SERVICE: May 20, 2018. PERFORMING PHYSICIAN: Domingo Cook MD, professor of fine art. PROCEDURE PERFORMED: 1. Selective left and right coronary angiogram. 2. Left internal mammary artery angiogram. 3. SVG to diagonal angiogram. 4. SVG to OM of left circumflex angiogram. 5. SVG to RCA angiogram. 6. Left heart catheterization. INDICATION: This is a pleasant 72-year-old female patient who sees Dr. Hays in the office as an outpatient with a known history of coronary artery disease and in January of 2018, she underwent coronary artery bypass grafting for severe triple-vessel coronary artery disease. At that point, she received DURON to LAD, SVG to diagonal, SVG to OM, and SVG to PDA of RCA. At this time she presented to the emergency room with chest discomfort associated with EKG changes concerning for ischemia and mildly abnormal cardiac enzymes concerning for acute coronary event. Because of that, a heart catheterization was recommended after the patient was seen and evaluated by Dr. Velasco. APPROACH: Right common femoral artery. COMPLICATION: None. LEVEL OF SEDATION: Moderate with a sedation length of 30 minutes. PROCEDURE DESCRIPTION: After obtaining an informed consent, the patient was brought to cardiac crime lab technician. The right common femoral artery was cannulated using micropuncture technique and the micropuncture wire passed easily then I placed a 6-Iraqi sheath in the right common femoral artery. The access was performed using micropuncture technique under ultrasound guidance. After that, I did selective right and left coronary angiogram using JL4 and JR4 catheters. Left internal mammary artery angiogram to LAD was performed using the JR4 catheter. SVG to diagonal and OM was performed using also the JR4 catheter. The SVG to RCA was performed using multipurpose catheter. After that I did left heart catheterization using 6-Iraqi pigtail catheter. The procedure was completed without any complication. SELECTIVE CORONARY ANGIOGRAM: 1. The left main is critically diseased up to about 80%. The disease is involving the bifurcation of left circumflex and left anterior descending artery. 2. The left circumflex is a moderate to large caliber vessel. The ostial left circumflex is involved in the plaque from the left main and appeared to be diseased in the range of 80%. The mid left circumflex has mild disease only and gives rise into the first OM branch which has severe disease in the midportion appeared to be in the range of 70% to 80% just proximal to the distal anastomosis of the SVG. The SVG was filling retrograde from the left main injection through the OM. The left circumflex after that first OM appeared to have mild diffuse disease only. 3. The LAD: The proximal LAD appeared to have a lesion in the range of 99.9%. I was able to visualize competitive flow from the DURON in the mid LAD. 4. The RCA is 100% occluded in the proximal portion. CORONARY BYPASSES ANGIOGRAM: 1. The DURON to LAD is patent and the LAD distal to the DURON anastomosis appeared to be small to medium caliber vessel only. 2. The SVG to OM is patent as well. 3. The SVG to diagonal is patent and the SVG to diagonal feeds the LAD as well. 4. The SVG to RCA is patent as well. The PDA distal to the anastomosis appeared to be a small to medium caliber vessel only. HEMODYNAMICS: The left ventricular end-diastolic pressure was 16 mmHg. No significant gradient was identified across the aortic valve. CONCLUSION: 1. Severe triple-vessel coronary artery disease. 2. Patent DURON to LAD. The LAD distal to the DURON anastomosis is a small caliber vessel. 3. Patent SVG to diagonal. 4. Patent SVG to first obtuse marginal branch of the left circumflex. 5. Patent SVG to PDA of RCA. The PDA distal to the distal anastomosis is a small caliber vessel as well. 6. Mildly elevated left ventricular end-diastolic pressure. POSTPROCEDURE MANAGEMENT: Giving the patency of all grafts, I recommended maximize medical treatment. The patient might benefit from oral nitrate for possible coronary vasospasm. MMODL / IJN: [id number] /
--- NOTE | 2018-05-20 12:52 | LTR ---
DATE OF SERVICE: 05/20/2018 RE: Radha Cutler Dear Dr. Pollack; Ms. Radha Cutler presented to [facility] complaining of chest discomfort, associated with EKG changes and mildly abnormal cardiac enzymes. She was ruled in for acute non ST-elevation myocardial infarction. She was seen and evaluated by Dr. Velasco who recommended proceeding with a heart catheterization. I did perform a heart catheterization on her and that showed severe triple-vessel coronary artery disease with patency of all grafts. Maximized medical treatment is recommended at this point of time. Thank you for allowing us to participate in her care and please do not hesitate to call if you have any question or concern. Sincerely, MD JC Blanco / PIPER: [id number] /
[2018-05-20] MEDS ORDERED: HYDROcodone/APAP 5-325MG 1 EACH TAB PO PRN (15:25)
[2018-05-20] MEDS ORDERED: TEMAZEPAM 15 MG CAP PO PRN (15:25)
[2018-05-20] MEDS ORDERED: ACETAMINOPHEN TAB 500 MG TAB PO PRN (15:25)
[2018-05-20 15:57] LABS: Creatine Kinase MB 1.1 ng/mL (0.0-2.4); Troponin I 0.033 ng/mL (0.000-0.034)
--- NOTE | 2018-05-20 16:07 | HP ---
HISTORY AND PHYSICAL DATE OF SERVICE: 05/20/2018 CHIEF COMPLAINT: Chest pain. HISTORY OF PRESENT ILLNESS: This 72-year-old woman with a past medical history of multiple medical problems including CAD, CVA, history of hypertension, hyperlipidemia, pneumonia, history of gout, being followed by Dr. Pollack in the outpatient setting, was complaining of chest pain this morning. The patient's pain is mostly in the central part and towards the right, extending from the neck to the epigastrium according to him, which was chest pressure type of pain and the patient also had some dyspnea, nausea. So the patient came to [facility] and the EKG shows some ST-T changes. Cardiology performed a cardiac catheterization. Dr. Cook found severe triple vessel disease and patent DURON to LAD and patent SVG to the diagonal, patent SVG to 1st obtuse and patent SVG to RCA and medical treatment recommended. Patient complaining of right groin pain at this time. There is no history of fever, rigors. No history of headache, loss of consciousness, seizures. PAST MEDICAL HISTORY: History of CAD, hypertension, hyperlipidemia, history pneumonia, history of gout , history of CABG. MEDICATIONS PRIOR TO ADMISSION: 1. Coumadin 2.5 mg p.o. daily and 3.75 mg p.o. daily. 2. Pravachol 40 mg q.h.s. 3. Lopressor 12.5 mg b.i.d. 4. Cozaar 25 mg p.o. daily. 5. Lasix 20 mg p.o. b.i.d. 6. Iron 320 mg p.o. b.i.d. 7. Vitamin D2 50,000 Wednesday. 8. Aspirin 81 mg p.o. daily. ALLERGIES: Are LIPITOR, BENAZEPRIL, AMLODIPINE. FAMILY HISTORY: History of myocardial infarction in the family. SOCIAL HISTORY: No history of smoking. No history of alcohol intake. REVIEW OF SYSTEMS: ENT: No diminished hearing or vision. CARDIOVASCULAR: As mentioned. RESPIRATORY: As mentioned. GI: No nausea. : No dysuria. NERVOUS SYSTEM: No numbness or weakness. ALLERGY/IMMUNOLOGY: No asthma or hayfever. MUSCULOSKELETAL: As mentioned earlier. HEMATOLOGY: No history of anemia. ENDOCRINE: No history of diabetes or hypothyroidism. CONSTITUTIONAL: As mentioned earlier. DERMATOLOGY: Negative. RHEUMATOLOGY: Negative. PSYCHIATRY: As mentioned earlier. PHYSICAL EXAMINATION: Alert and oriented x3. Pulse 51, blood pressure 140/69, respiratory 16, temperature normal, pulse ox 94% on room air. HEENT: Conjunctivae normal. NECK: No jugular venous distention. CARDIOVASCULAR: S1, S2 RESPIRATORY: Breath sounds diminished in the bases. No rhonchi, no crackles. ABDOMEN: Soft, nontender. No mass palpable. No hepatosplenomegaly. LEGS: No edema. NERVOUS SYSTEM: Higher function as mentioned. Moves all four limbs. No focal motor deficits. LYMPHATICS: No lymphadenopathy in the neck, axillae, groin. SKIN: No ulcer, rash, bleeding. LABS: CBC within normal. INR 1.5. Creatinine is 1.38. Troponin 0.037. ASSESSMENT: 1. Coronary artery disease, status post possible unstable angina, status post cardiac catheterization showing patent stents. 2. Coronary artery disease, CABG. 3. Chronic kidney disease stage III. 4. Troponin 0.037. 5. History of coronary artery disease. 6. Hypertension. 7. Hyperlipidemia. 8. History of pneumonia. 9. History of gout. 10.Gastroesophageal reflux disease, Disease. 11.Remote history of nicotine dependence. RECOMMENDATIONS AND DISCUSSION: This 72-year-old woman who presented with multiple complex medical issues, we will monitor the patient closely. Continue the current management and symptomatic treatment. Otherwise at this time, I recommend continue with antiplatelet agents and beta blockers. Closely follow with Cardiology. Otherwise resume the home medications, symptomatic treatment of the pain. The INR is 1.5. We will resume the Coumadin and monitor the patient closely. Further recommendations to follow. MMODL / IJN: [id number] / KATY
[2018-05-20 17:23] VITALS: BMI 30.2
[2018-05-20 20:26] LABS: Troponin I 0.034 ng/mL (0.000-0.034)
[2018-05-20] MEDS: FERROUS SULFATE 325 MG TAB PO SCH (20:47)
[2018-05-20] MEDS ORDERED: PRAVASTATIN SODIUM 40 MG TAB PO SCH (21:00)
[2018-05-21] MEDS: NITROGLYCERIN OINT 1 INCH/GM PACKET TOPICAL SCH ×2 (01:08→08:39)
[2018-05-21] MEDS ORDERED: MAGNESIUM HYDROXIDE 2,400 MG/10 ML CUP PO PRN (05:59)
[2018-05-21 06:38] LABS: Basophils # (A) 0.1 k/uL (0-0.2); Basophils % (A) 1 %; Eosinophils # (A) 0.3 k/uL (0-0.7); Eosinophils % (A) 4 %; HCT 39.3 % (34.0-46.0); HGB 12.4 gm/dL (11.4-16.0); Lymphocytes # (A) 0.9 k/uL (1.0-4.8); Lymphocytes % (A) 11 %; MCH 28.6 pg (25.0-35.0); MCHC 31.5 g/dL (31.0-37.0); MCV 90.9 fL (80.0-100.0); Mean Platelet Volume 6.7; Monocytes # (A) 0.5 k/uL (0-1.0); Monocytes % (A) 6 %; Neutrophils # (A) 6.1 k/uL (1.3-7.7); Neutrophils % (A) 77 %; Platelet Count 228 k/uL (150-450); RBC 4.33 m/uL (3.80-5.40); RDW 14.6 % (11.5-15.5); WBC 7.9 k/uL (3.8-10.6)
[2018-05-21 06:45] LABS: INR 1.5 (<1.2); Prothrombin Time 14.3 sec (9.0-12.0)
[2018-05-21 06:54] LABS: Calcium 9.4 mg/dL (8.4-10.2); Potassium 4.3 mmol/L (3.5-5.1)
[2018-05-21] MEDS ORDERED: PANTOPRAZOLE 40 MG TABLET PO SCH (07:30)
[2018-05-21] MEDS: METOPROLOL TARTRATE 12.5 MG TAB PO SCH (08:39)
[2018-05-21] MEDS: AMIODARONE 200 MG TAB PO SCH (08:39)
[2018-05-21] MEDS: LOSARTAN 25 MG TAB PO SCH (08:39)
[2018-05-21] MEDS: ASPIRIN 81 MG PO SCH (08:39)
[2018-05-21] MEDS: FERROUS SULFATE 325 MG TAB PO SCH (08:39)
[2018-05-21 10:15] VITALS: RESP 20
[2018-05-21] MEDS ORDERED: ISOSORBIDE MONONITRATE ER 30 MG TAB.ER.24H PO SCH (11:00)
--- NOTE | 2018-05-21 11:14 | PN ---
PROGRESS NOTE Mrs. Cutler is a 72-year-old female who has a history of coronary artery disease, status post coronary artery bypass grafting who presented with symptoms of chest discomfort and minimal elevation of troponin with mild EKG changes, underwent cardiac catheterization, was found to have patent graft. She is doing well this morning. Her breathing is stable. She is denying any chest pain, no dizziness or palpitation. She denies any nausea. She continues to be on amiodarone 200 mg daily, aspirin 81 mg daily, losartan 25 mg daily, metoprolol tartrate 12.5 mg twice a day, nitro paste. PHYSICAL EXAMINATION: Blood pressure 106/60 with a heart in the 60s. LUNGS: Clear. HEART: Regular rate and rhythm. S1, S2. No S3. No rub appreciated. ABDOMEN: Soft, nontender. Right groin hematoma. IMPRESSION: 1. Symptoms of chest discomfort with no evidence of progression of disease in the graft, could be a vasospastic disease. 2. Status post coronary artery bypass grafting. 3. History of ischemic cardiomyopathy. 4. Paroxysmal atrial fibrillation, remains in sinus mechanism. 5. Hypertension. 6. Hyperlipidemia. RECOMMENDATION: Patient underwent an echocardiogram that revealed ejection fraction 30%-35%. From the cardiac standpoint, she should be able to be discharged home today and follow up as an outpatient. I will resume her Coumadin, I will switch her to oral nitrate. MMODL / IJN: [id number] /
[2018-05-21 11:56] VITALS: BP 101/43; PULSE 50; TEMP 97.9
--- NOTE | 2018-05-21 13:29 | DS ---
DISCHARGE SUMMARY FINAL DIAGNOSES: 1. Chest pain possible unstable angina or coronary vasospasms, status post cardiac catheterization and patent stents. 2. History of coronary artery disease, CABG. 3. History of chronic kidney disease stage III. 4. Troponin 0.036 indeterminate. 5. History of coronary artery disease. 6. Hypertension. 7. Hyperlipidemia. 8. History of pneumonia. 9. History of gout. 10.Gastroesophageal reflux disease. 11.Remote nicotine dependence. 12.Paroxysmal atrial fibrillation. DISCHARGE DISPOSITION: The patient will be discharged in stable condition with guarded prognosis. HISTORY OF PRESENT ILLNESS: This 72-year-old woman with a past history of multiple medical was admitted with chest pain. The patient underwent cardiac catheterization by Cardiology. The grafts were patent. Treated medically. Patient improved significantly. Patient discharged in stable condition with guarded prognosis. The patient is followed by Dr. Pollack in the outpatient setting. On exam, vitals are stable. CARDIOVASCULAR: S1, S2 ABDOMEN: Soft, nontender. NERVOUS SYSTEM: No focal deficits. DISCHARGE ADVICE: 1. Diet is cardiac. 2. Activities limited until followup. 3. Follow up with Dr. Pollack 2-3 days. 4. Follow up with christmas bell ringer as advised. MEDICATIONS: 1. Vitamin D2 50,000 Wednesday. 2. Iron sulfate 325 mg b.i.d. 3. Lopressor 12.5 mg b.i.d. 4. Pravachol 40 mg q.h.s. 5. Coumadin 3.7 mg p.o. daily. 6. Cordarone 200 mg p.o. daily per Cardiology. 7. Aspirin 81 mg p.o. daily. 8. Lasix 15 mg p.o. b.i.d. 9. Imdur 30 mg p.o. daily. 10.Cozaar 25 mg p.o. daily. 11.Nitrostat 0.4 some. 12.Coumadin 2.5 mg p.o. daily. CBC, BMP, PT/INR with Dr. Pollack. MMODL / IJN: [id number] /
[2018-05-21] MEDS ORDERED: WARFARIN 5 MG TAB PO ONE (18:00)
[2018-05-24] MEDS ORDERED: ERGOCALCIFEROL 50,000 UNIT CAP PO SCH (09:00)
== END 2018-05-21 14:43 | disposition home or self-care (01) | DRG 287 ==
LOC: EC 08:03 → 6SEL 09:21
PROVIDERS: ADMIT Hospitalist; ATTEND Hospitalist
PROC: B2131ZZ Fluoroscopy of Multiple Coronary Artery Bypass Grafts using Low Osmolar Contrast (ICD-10-PCS; 2018-05-20)
PROC: B2111ZZ Fluoroscopy of Multiple Coronary Arteries using Low Osmolar Contrast (ICD-10-PCS; 2018-05-20)
PROC: 4A023N7 Measurement of Cardiac Sampling and Pressure, Left Heart, Percutaneous Approach (ICD-10-PCS; principal; 2018-05-20 10:30)
DX: I25.119 Atherosclerotic heart disease of native coronary artery with unspecified angina pectoris (principal); I12.9 Hypertensive chronic kidney disease with stage 1 through stage 4 chronic kidney disease, or unspecified chronic kidney disease; N18.3 Chronic kidney disease, stage 3 (moderate); I25.82 Chronic total occlusion of coronary artery; Z95.1 Presence of aortocoronary bypass graft; Z87.891 Personal history of nicotine dependence; E78.5 Hyperlipidemia, unspecified; I25.2 Old myocardial infarction; I25.5 Ischemic cardiomyopathy; I48.0 Paroxysmal atrial fibrillation; K21.9 Gastro-esophageal reflux disease without esophagitis; M10.9 Gout, unspecified; Z79.01 Long term (current) use of anticoagulants; Z79.82 Long term (current) use of aspirin; Z79.899 Other long term (current) drug therapy; Z82.49 Family history of ischemic heart disease and other diseases of the circulatory system; Z86.73 Personal history of transient ischemic attack (TIA), and cerebral infarction without residual deficits; Z87.01 Personal history of pneumonia (recurrent); Z88.8 Allergy status to other drugs, medicaments and biological substances
CPT/HCPCS: 36415; 71046; 80048; 80053; 82550; 82553; 83690; 83735; 83880; 84484; 85025; 85610; 85730; 93005; 93306; 93459; 96365; 96375; 99291

== ENCOUNTER 2018-07-25 17:33 | Inpatient (IN) | payer MEDICARE ==
[2018-07-25] MEDS ORDERED: ASPIRIN 81 MG PO STA (17:59)
[2018-07-25] MEDS ORDERED: NITROGLYCERIN SL TABS 0.4 MG TAB SUBLINGUAL PRN (17:59)
[2018-07-25] MEDS ORDERED: HEPARIN SODIUM,PORCINE 5,000 UNIT/ML 1 ML VIAL IV ONE (17:59)
[2018-07-25] MEDS ORDERED: HEPARIN SODIUM,PORCINE 5,000 UNIT/ML 1 ML VIAL IV PRN (17:59)
[2018-07-25] MEDS ORDERED: HEPARIN SOD,PORK IN 0.45% NACL 25,000 UNIT in 0.45% NACL 1 500ML.BAG IV SCH (18:00)
--- NOTE | 2018-07-25 18:04 | ED ---
Chest Pain HPI - General Chief Complaint: Chest Pain Stated Complaint: chest pain Time Seen by Provider: 07/25/18 17:40 Source: patient, RN notes reviewed, old records reviewed Mode of arrival: wheelchair Limitations: no limitations - History of Present Illness Initial Comments: This is a 9-year-old female the ER for evaluation. Patient presents for evaluation regards to chest pain severe chest pain sudden onset of 5 minutes prior to arrival. Patient with positive cardiac history has significant history that involves RI, CABG, patient does follow with Dr. Cuevas is a dial mounter. She hasn't been feeling well today than 10 sudden onset of headache chest pain. Just a mild improvement currently. No diaphoresis mild shortness of breath MD Complaint: chest pain -: minutes(s) (5) Onset: during rest Pain Location: substernal, left chest Pain Radiation: none Severity: moderate Severity scale (1-10): 7 Quality: tightness, heaviness Consistency: constant Improves With: nothing Worsens With: nothing Treatments Prior to Arrival: none - Related Data Home Medications Medication Instructions Recorded Confirmed Metoprolol Tartrate [Lopressor] 12.5 mg PO BID 02/27/18 05/20/18 Ergocalciferol (Vitamin D2) 50,000 unit PO TU 05/20/18 05/20/18 [Vitamin D2] Ferrous Sulfate [Iron (65 MG 325 mg PO BID 05/20/18 05/20/18 Elemental)] Pravastatin Sodium [Pravachol] 40 mg PO HS 05/20/18 05/20/18 Warfarin [Coumadin] 3.75 mg PO DAILY 05/20/18 05/20/18 Previous Rx's Medication Instructions Recorded Aspirin 81 mg PO DAILY #30 chew 02/10/18 Warfarin [Coumadin] 2.5 mg PO DAILY #30 tab 02/10/18 Furosemide [Lasix] 20 mg PO BID #60 tab 02/28/18 Losartan [Cozaar] 25 mg PO DAILY #30 tab 02/28/18 Amiodarone [Cordarone] 200 mg PO DAILY #30 tab 05/21/18 Isosorbide Mononitrate ER [Imdur] 30 mg PO DAILY #30 tab.er.24h 05/21/18 Nitroglycerin Sl Tabs [Nitrostat] 0.4 mg SUBLINGUAL Q5M PRN #20 tab 05/21/18 Allergies Allergy/AdvReac Type Severity Reaction Status Date / Time atorvastatin calcium Allergy Swelling Verified 07/25/18 17:36 [From Lipitor] benazepril Allergy irregular Verified 07/25/18 17:36 heart rate amlodipine AdvReac muscle Verified 07/25/18 17:36 cramps Review of Systems ROS Statement: Those systems with pertinent positive or pertinent negative responses have been documented in the HPI. ROS Other: All systems not noted in ROS Statement are negative. 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 History of Any Multi-Drug Resistant Organisms: None Reported Past Surgical History: Coronary Bypass/CABG Additional Past Surgical History / Comment(s): "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, D&C-vaginal polyps. Past Anesthesia/Blood Transfusion Reactions: No Reported Reaction Past Psychological History: No Psychological Hx Reported Smoking Status: Former smoker Past Alcohol Use History: Rare Past Drug Use History: None Reported - Past Family History Mother Family Medical History: Myocardial Infarction ([place]) Father Family Medical History: Myocardial Infarction ([place]) Brother(s) Family Medical History: Neurologic Disorder Sister(s) Family Medical History: Cancer, Myocardial Infarction ([place]) General Exam Limitations: no limitations Course Vital Signs 07/25/18 17:33 Temperature 97.5 F L Pulse Rate 60 Respiratory 18 Rate Blood Pressure 154/83 O2 Sat by Pulse 100 Oximetry - Reevaluation(s) Reevaluation #1: 07/25/18 18:02 STEMI code is paged out, cardiology with patient Reevaluation #2: 07/25/18 18:03 Patient showing mild improvement in pain currently Chest Pain MDM - MDM 72-year-old female to the ER for evaluation. This patient presents today for evaluation regards to chest pain. History of significant heart disease and CABG. Patient's positive ST elevation on EKG. Patient will be admitted for cardiology evaluation and treatment, catheterization Critical Care Time Critical Care Time: Yes Total Critical Care Time: 31 Disposition Clinical Impression: Ischemic cardiomyopathy, Chest pain Disposition: ADMITTED IP TO THIS HOSP Condition: Serious Is patient prescribed a controlled substance at d/c from ED?: No Referrals: Ramón Pollack MD [Primary Care Provider] - 1-2 days
--- NOTE | 2018-07-25 18:13 | XR ---
EXAMINATION TYPE: XR chest 1V portable DATE OF EXAM: 07/25/2018 COMPARISON: Chest x-ray May 20, 2018. CT chest February 27, 2018. HISTORY: Chest pain per order. STEMI. TECHNIQUE: Single AP portable frontal upright view of the chest is obtained. FINDINGS: Post-CABG changes with mediastinal clips and sternal wires is redemonstrated. There is water/wastewater engineer rizwana emphysematous change without suspicious focal air space opacity, pleural effusion, or pneumothora x seen. The cardiac silhouette size remains enlarged. The osseous structures remain demineralized. IMPRESSION: Chronic changes and cardiomegaly without acute pulmonary process.
[2018-07-25 18:20] LABS: HGB 15.6 gm/dL (11.4-16.0); MCHC 32.4 g/dL (31.0-37.0); MCV 92.8 fL (80.0-100.0); Mean Platelet Volume 7.6; Platelet Count 267 k/uL (150-450); RBC 5.18 m/uL (3.80-5.40); RDW 15.7 % (11.5-15.5); WBC 13.2 k/uL (3.8-10.6)
[2018-07-25 18:21] LABS: Albumin 4.7 g/dL (3.5-5.0); Calcium 9.3 mg/dL (8.4-10.2); Potassium 5.6 mmol/L (3.5-5.1); Total Bilirubin 1.3 mg/dL (0.2-1.3); Total Protein 8.3 g/dL (6.3-8.2)
[2018-07-25 18:39] LABS: INR 2.8 (<1.2); Partial Thromboplastin Time 37.7 sec (22.0-30.0); Prothrombin Time 25.5 sec (9.0-12.0)
[2018-07-25 18:55] LABS: Creatine Kinase MB 1.4 ng/mL (0.0-2.4)
[2018-07-25 19:06] LABS: Troponin I 0.039 ng/mL (0.000-0.034)
--- NOTE | 2018-07-25 19:22 | CONS ---
CONSULTATION Mrs. Cutler is a 72-year-old female who presented to the emergency room with symptoms of chest discomfort. The patient is followed by Dr. Hays on a regular basis. She has underwent coronary bypass grafting in January of this year, has a history of hyperlipidemia, paroxysmal fibrillation and hypertension. In end of April, she presented with symptoms of chest discomfort and at that time because of her symptoms, she underwent a repeat cardiac catheterization by Dr. Cook and the cardiac catheterization showed a patent DURON to the LAD, patent saphenous vein graft to diagonal branch to the obtuse marginal branch and PDA of the right coronary artery. The PDA is small in caliber. The patient was treated medically and was thought to have some vasospastic disease. Today, she had some chest discomfort, left-sided, came into the emergency room and subsequently cardiology consultation was requested. During her last visit, her ejection fraction was 30-35 with mild mitral and tricuspid regurgitation. The patient has occasional peripheral edema. She has no dizziness or palpitation. No syncope. No clear PND or orthopnea. Her coronary risk factors are positive for hypertension and hyperlipidemia. She is nonsmoker, nondiabetic. MEDICATION: Include Coumadin, spironolactone 25 mg daily, pravastatin 40 mg daily, metoprolol tartrate 25 mg daily, losartan 25 mg daily, Lasix 20 mg twice a day and aspirin 81 mg daily. REVIEW OF SYSTEMS: RESPIRATORY system: She has no recent wheezing. She has mild cough. No fever. GI system: She had no GI bleeding. No nausea. No vomiting. She has some abdominal discomfort. : No dysuria or hematuria. Nervous system: No stroke or seizure. PHYSICAL EXAMINATION: She is a 72-year-old female, alert, oriented, in no apparent distress. She is pain- free at this time. Blood pressure 131/70 with a heart rate in the 50s. HEAD: Normocephalic. Eyes sclerae anicteric. Neck: Good carotid upstroke. No bruit. No jugular venous distention. Lungs clear to auscultation. Heart: Regular rate and rhythm, S1, S2. No S3 with a systolic murmur heard at the base. No diastolic murmur. No rub. ABDOMEN: Soft, nontender. Positive bowel sounds. No organomegaly. EXTREMITIES: No significant edema. LAB DATA: Her EKG revealed a sinus mechanism, rate of 50 with QS in leads 2, 3, and AVF with mild ST-segment changes. Compared with the old EKG in April, there is no acute changes. Her lab data: Her hemoglobin is 15.6, platelet count of 267. Her chest x-ray shows no acute changes. IMPRESSION: 1. Episode of chest discomfort of unclear etiology, no clear evidence to suggest acute myocardial infarction. Reviewing her old EKG, there is no acute changes and the patient has underwent cardiac catheterization following her prior presentation. 2. Status post coronary artery bypass grafting. 3. Ischemic cardiomyopathy with no evidence of congestive heart failure. 4. Paroxysmal atrial fibrillation remains in sinus mechanism. 5. Hypertension. 6. Hyperlipidemia. RECOMMENDATION: From the cardiac standpoint, I will continue on the present therapy. We will follow her lab data. I will add nitrate to her regimen and depending on her progress, further recommendations will be made. Thank you for this consult. We will follow with you. JC / PRINCEN: [id number] /
[2018-07-25 20:35] LABS: Magnesium 2.4 mg/dL (1.6-2.3)
[2018-07-25] MEDS: FUROSEMIDE 20 MG TAB PO SCH (20:56)
[2018-07-25] MEDS: PRAVASTATIN SODIUM 40 MG TAB PO SCH (20:56)
[2018-07-25] MEDS ORDERED: METOPROLOL TARTRATE 25 MG TAB PO SCH (21:00)
[2018-07-25] MEDS: NITROGLYCERIN OINT 1 INCH/GM PACKET TOPICAL SCH (23:22)
[2018-07-26 00:53] LABS: Creatine Kinase MB 1.2 ng/mL (0.0-2.4); Troponin I 0.026 ng/mL (0.000-0.034)
[2018-07-26 06:32] LABS: Mean Platelet Volume 6.7; Platelet Count 228 k/uL (150-450)
[2018-07-26 06:38] LABS: Calcium 9.5 mg/dL (8.4-10.2); Potassium 4.1 mmol/L (3.5-5.1)
[2018-07-26 06:41] LABS: INR 2.5 (<1.2); Partial Thromboplastin Time 36.1 sec (22.0-30.0); Prothrombin Time 22.8 sec (9.0-12.0)
[2018-07-26] MEDS: FUROSEMIDE 20 MG TAB PO SCH ×2 (07:53→16:39)
[2018-07-26] MEDS: ASPIRIN 81 MG PO SCH (07:53)
[2018-07-26] MEDS: METOPROLOL TARTRATE 25 MG TAB PO SCH (07:53)
[2018-07-26] MEDS: LOSARTAN 25 MG TAB PO SCH (07:53)
[2018-07-26] MEDS: SPIRONOLACTONE 25 MG TAB PO SCH (07:54)
[2018-07-26] MEDS: NITROGLYCERIN OINT 1 INCH/GM PACKET TOPICAL SCH (07:54)
[2018-07-26] MEDS ORDERED: ASPIRIN 325 MG TAB PO SCH (09:00)
[2018-07-26] MEDS ORDERED: NITROGLYCERIN SL TABS 0.4 MG TAB SUBLINGUAL PRN (11:24)
[2018-07-26] MEDS ORDERED: WARFARIN 5 MG TAB PO SCH (11:30)
--- NOTE | 2018-07-26 12:08 | P.HPIM ---
History of Present Illness 72-year-old pleasant female the came to ER with complaints of chest pain pressure-like sensation radiating to the neck area had history of a cardiac infarction in the past CABG also had a recent cardiac catheterization which did not show any significant extent table coronary atherosclerotic vascular occlusive disease. Patient's symptoms completely resolved at this point of time patient was evaluated by cardiology. Cardiology believes patient has a coronaryvasospasmn the recommending long-acting the nitrates upon discharge and monitoring were for 1 more night area at patient does have severe ischemic myopathy ejection fraction of around 25% patient is presently euvolemic without any heart failure symptoms denied any significant shortness of breath diaphoresis. Patient's troponins are negative please refer to cardiology dictation for EKG findings. Mildly elevated white blood cell count reactive in nature without any signs or symptoms of infection creatinine 1.26 baseline around 0.8- 0.9. Review of Systems REVIEW OF SYSTEMS: CONSTITUTIONAL: No fever, no malaise, no fatigue. HEENT: No recent visual problems or hearing problems. Denied any sore throat. CARDIOVASCULAR: No orthopnea, PND, no palpitations, no syncope. PULMONARY: No shortness of breath, no cough, no hemoptysis. GASTROINTESTINAL: No diarrhea, no nausea, no vomiting, no abdominal pain. Normoactive bowel sounds. NEUROLOGICAL: No headaches, no weakness, no numbness. HEMATOLOGICAL: Denies any bleeding or petechiae. GENITOURINARY: Denies any burning micturition, frequency, or urgency. MUSCULOSKELETAL/RHEUMATOLOGICAL: Denies any joint pain, swelling, or any muscle pain. ENDOCRINE: Denies any polyuria or polydipsia. The rest of the 14-point review of systems is negative. 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 Last Myocardial Infarction Date:: History of Any Multi-Drug Resistant Organisms: None Reported Past Surgical History: Coronary Bypass/CABG Additional Past Surgical History / Comment(s): "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, D&C-vaginal polyps. Past Anesthesia/Blood Transfusion Reactions: No Reported Reaction Additional Past Anesthesia/Blood Transfusion Reaction / Comment(s): past blood transfusion-no reaction Past Psychological History: No Psychological Hx Reported Smoking Status: Former smoker Past Alcohol Use History: Rare Past Drug Use History: None Reported - Past Family History Mother Family Medical History: Myocardial Infarction ([place]) Father Family Medical History: Myocardial Infarction ([place]) Brother(s) Family Medical History: Neurologic Disorder Sister(s) Family Medical History: Cancer, Myocardial Infarction ([place]) Medications and Allergies Home Medications Medication Instructions Recorded Confirmed Type Aspirin 81 mg PO DAILY #30 chew 02/10/18 07/25/18 Rx Metoprolol Tartrate [Lopressor] 25 mg PO DAILY 02/27/18 07/25/18 History Furosemide [Lasix] 20 mg PO BID #60 tab 02/28/18 07/25/18 Rx Losartan [Cozaar] 25 mg PO DAILY #30 tab 02/28/18 07/25/18 Rx Ferrous Sulfate [Iron (65 MG 325 mg PO DAILY 05/20/18 07/25/18 History Elemental)] Pravastatin Sodium [Pravachol] 40 mg PO HS 05/20/18 07/25/18 History Nitroglycerin Sl Tabs [Nitrostat] 0.4 mg SUBLINGUAL Q5M PRN #20 tab 05/21/1811/11 Rx Docusate [Colace] 100 mg PO BID 07/25/18 07/25/18 History Spironolactone [Aldactone] 25 mg PO DAILY 07/25/18 07/25/18 History Warfarin [Coumadin] 2.5 mg PO WE 07/25/18 07/25/18 History Warfarin [Coumadin] 5 mg PO SUMOTUTHFRSA 07/25/18 07/25/18 History Allergies Allergy/AdvReac Type Severity Reaction Status Date / Time atorvastatin calcium Allergy Swelling Verified 07/25/18 18:16 [From Lipitor] benazepril Allergy irregular Verified 07/25/18 18:16 heart rate amlodipine AdvReac muscle Verified 07/25/18 18:16 cramps Physical Exam Vitals: Vital Signs Temp Pulse Pulse Resp BP BP Pulse Ox 07/26/18 08:00 97.8 F 64 18 155/82 97 07/26/18 03:44 98.7 F 54 L 18 134/66 97 07/26/18 00:00 98.1 F 62 18 136/59 98 07/25/18 19:32 97.9 F 07/25/18 19:19 54 L 18 160/75 99 07/25/18 18:15 57 L 18 131/76 97 07/25/18 17:59 95 07/25/18 17:33 97.5 F L 60 18 154/83 100 Intake and Output 07/25/18 07/26/18 07/26/18 22:59 06:59 14:59 Intake Total 120 Balance 120 Intake: Oral 120 Other: # Voids 2 1 Weight 76.204 kg 75.4 kg PHYSICAL EXAMINATION: GENERAL: The patient is alert and oriented x3, not in any acute distress. Well developed, well nourished. HEENT: Pupils are round and equally reacting to light. EOMI. No scleral icterus. No conjunctival pallor. Normocephalic, atraumatic. No pharyngeal erythema. No thyromegaly. CARDIOVASCULAR: S1 and S2 present. No murmurs, rubs, or gallops. PULMONARY: Chest is clear to auscultation, no wheezing or crackles. ABDOMEN: Soft, nontender, nondistended, normoactive bowel sounds. No palpable organomegaly. MUSCULOSKELETAL: No joint swelling or deformity. EXTREMITIES: No cyanosis, clubbing, or pedal edema. NEUROLOGICAL: Gross neurological examination did not reveal any focal deficits. SKIN: No rashes. Results CBC & Chem 7: 07/26/18 05:48 07/26/18 05:48 Labs: Abnormal Lab Results - Last 24 Hours (Table) 07/25/18 07/25/18 07/25/18 Range/Units 17:55 17:55 17:55 WBC 13.2 H (3.8-10.6) k/uL Hct 48.0 H (34.0-46.0) % RDW 15.7 H (11.5-15.5) % PT (9.0-12.0) sec INR (<1.2) APTT (22.0-30.0) sec Potassium 5.6 H (3.5-5.1) mmol/L BUN 37 H (7-17) mg/dL Creatinine 1.29 H (0.52-1.04) mg/dL Magnesium 2.4 H (1.6-2.3) mg/dL AST 59 H (14-36) U/L Troponin I 0.039 H* (0.000-0.034) ng/mL Total Protein 8.3 H (6.3-8.2) g/dL Triglycerides (<150) mg/dL LDL Cholesterol, Calc (0-99) mg/dL HDL Cholesterol (40-60) mg/dL 07/25/18 07/25/18 07/26/18 Range/Units 17:55 23:56 05:48 WBC (3.8-10.6) k/uL Hct (34.0-46.0) % RDW (11.5-15.5) % PT 25.5 H 22.8 H (9.0-12.0) sec INR 2.8 H 2.5 H (<1.2) APTT 37.7 H 36.7 H 36.1 H (22.0-30.0) sec Potassium (3.5-5.1) mmol/L BUN (7-17) mg/dL Creatinine (0.52-1.04) mg/dL Magnesium (1.6-2.3) mg/dL AST (14-36) U/L Troponin I (0.000-0.034) ng/mL Total Protein (6.3-8.2) g/dL Triglycerides (<150) mg/dL LDL Cholesterol, Calc (0-99) mg/dL HDL Cholesterol (40-60) mg/dL 07/26/18 Range/Units 05:48 WBC (3.8-10.6) k/uL Hct (34.0-46.0) % RDW (11.5-15.5) % PT (9.0-12.0) sec INR (<1.2) APTT (22.0-30.0) sec Potassium (3.5-5.1) mmol/L BUN 33 H (7-17) mg/dL Creatinine 1.26 H (0.52-1.04) mg/dL Magnesium (1.6-2.3) mg/dL AST (14-36) U/L Troponin I (0.000-0.034) ng/mL Total Protein (6.3-8.2) g/dL Triglycerides 153 H (<150) mg/dL LDL Cholesterol, Calc 129 H (0-99) mg/dL HDL Cholesterol 36 L (40-60) mg/dL Thrombosis Risk Factor Assmnt - Choose All That Apply Each Risk Factor Represents 2 Points: Age 61-74 years Thrombosis Risk Factor Assessment Total Risk Factor Score: 2 Thrombosis Risk Factor Assessment Level: Low Risk Assessment and Plan Plan: -Episode of chest discomfort secondary to possible coronary vessels spasm, recent cardiac catheterization and please refer to cardiology dictation for further details. -Coronary artery disease with bypass grafting in the past -Severe ischemic cardiomyopathy chronic systolic dysfunction not in acute exacerbation -Proximal atrial fibrillation presently rate controlled sinus rhythm, on anti- correlation with Coumadin therapy, anticoagulation -Hypertension -Acute renal failure: Probably due to diuretic therapy will repeat the basic metabolic profile tomorrow. Patient may have some cardiorenal syndrome as well. -Leukocytosis: Reactive in nature without any signs or symptoms of infection -Hyperlipidemia
--- NOTE | 2018-07-26 15:03 | P.PN ---
Subjective Progress Note Date: 07/26/18 This is a 72-year-old female who presented to the hospital with symptoms of chest discomfort. She is a patient of Dr. Cuevas's in the office , underwent recent coronary artery bypass grafting surgery in January of this year , history of hyperlipidemia, paroxysmal atrial fibrillation and hypertension. At the end of April she presented with symptoms of chest discomfort and at that time underwent a repeat cardiac catheterization by Dr. Bernabe in the calf revealed a patent DURON to the LAD, patent saphenous vein graft to the diagonal branch to the obtuse marginal branch and the PDA of the right coronary artery. The PDA was small in caliber. Patient was treated medically and felt as though she may have some element of vasospastic disease and was initiated on nitrates. She again returned to the hospital on this admission again with symptoms of chest discomfort. Troponin 0.03, 0.02. Patient was seen and examined this morning, one episode of chest discomfort walking to the bathroom earlier today, pain-free at the time of my examination. She was complaining of the fact that her skin felt sore on her right lower extremity near her ankle. She can only feel it if he were to touch her skin gently otherwise there is no pain there at all. Let pressure 134/60 with a heart rate in the 60s 97% on 2 L of oxygen. Sodium 140, potassium 4.1, BUN 33, creatinine 1.2. Objective - Vital Signs Vital signs: Vital Signs Temp 97.8 F 07/26/18 08:00 Pulse 64 07/26/18 08:00 Resp 18 07/26/18 08:00 BP 155/82 07/26/18 08:00 Pulse Ox 97 07/26/18 08:00 Intake & Output 07/25/18 07/26/18 07/26/18 18:59 06:59 18:59 Intake Total 360 Balance 360 Weight 76.204 kg 75.4 kg Intake: Oral 360 Other: # Voids 1 1 - Exam PHYSICAL EXAMINATION: GENERAL: 72-year-old female in no acute distress at the time of my examination HEENT: Head is atraumatic, normocephalic. Pupils equal, round. Sclera anicteric. Conjunctiva are clear. Mucous membranes of the mouth are moist. Neck is supple. There is no elevated jugular venous pressure.] bruit is heard. HEART EXAMINATION: Her S1 S2 1 systolic murmur is heard CHEST EXAMINATION: Lungs are clear to auscultation and precussion. No chest wall tenderness is noted on palpation or with deep breathing. ABDOMEN: Soft, nontender. Bowel sounds are heard. No organomegaly noted. EXTREMITIES: 2+ peripheral pulses with no evidence of peripheral edema and no calf tenderness noted. NEUROLOGIC patient is awake, alert and oriented ?-3. . - Labs CBC & Chem 7: 07/26/18 05:48 07/26/18 05:48 Labs: Abnormal Lab Results - Last 24 Hours (Table) 07/25/18 07/25/18 07/25/18 Range/Units 17:55 17:55 17:55 WBC 13.2 H (3.8-10.6) k/uL Hct 48.0 H (34.0-46.0) % RDW 15.7 H (11.5-15.5) % PT (9.0-12.0) sec INR (<1.2) APTT (22.0-30.0) sec Potassium 5.6 H (3.5-5.1) mmol/L BUN 37 H (7-17) mg/dL Creatinine 1.29 H (0.52-1.04) mg/dL Magnesium 2.4 H (1.6-2.3) mg/dL AST 59 H (14-36) U/L Troponin I 0.039 H* (0.000-0.034) ng/mL Total Protein 8.3 H (6.3-8.2) g/dL Triglycerides (<150) mg/dL LDL Cholesterol, Calc (0-99) mg/dL HDL Cholesterol (40-60) mg/dL 07/25/18 07/25/18 07/26/18 Range/Units 17:55 23:56 05:48 WBC (3.8-10.6) k/uL Hct (34.0-46.0) % RDW (11.5-15.5) % PT 25.5 H 22.8 H (9.0-12.0) sec INR 2.8 H 2.5 H (<1.2) APTT 37.7 H 36.7 H 36.1 H (22.0-30.0) sec Potassium (3.5-5.1) mmol/L BUN (7-17) mg/dL Creatinine (0.52-1.04) mg/dL Magnesium (1.6-2.3) mg/dL AST (14-36) U/L Troponin I (0.000-0.034) ng/mL Total Protein (6.3-8.2) g/dL Triglycerides (<150) mg/dL LDL Cholesterol, Calc (0-99) mg/dL HDL Cholesterol (40-60) mg/dL 07/26/18 Range/Units 05:48 WBC (3.8-10.6) k/uL Hct (34.0-46.0) % RDW (11.5-15.5) % PT (9.0-12.0) sec INR (<1.2) APTT (22.0-30.0) sec Potassium (3.5-5.1) mmol/L BUN 33 H (7-17) mg/dL Creatinine 1.26 H (0.52-1.04) mg/dL Magnesium (1.6-2.3) mg/dL AST (14-36) U/L Troponin I (0.000-0.034) ng/mL Total Protein (6.3-8.2) g/dL Triglycerides 153 H (<150) mg/dL LDL Cholesterol, Calc 129 H (0-99) mg/dL HDL Cholesterol 36 L (40-60) mg/dL Assessment and Plan Plan: Assessment and plan #1 chest pain, no evidence to suggest acute coronary syndrome. Recent cardiac catheterization in April was performed, patient had bypass surgery earlier this year. After her heart cath in April medical therapy was advised. #2 ischemic cardiomyopathy with no evidence of congestive heart failure #3 paroxysmal atrial fibrillation, remaining in normal sinus rhythm #4 hypertension #5 hyperlipidemia Plan From cardiology standpoint we will discontinue the patient's Nitropaste and start her on some daily Imdur. She may be able to be discharged once cleared by primary. We'll make sure she has a follow-up appointment with Dr. Cuevas in the office post discharge. DNP note has been reviewed, I agree with a documented findings and plan of care. Patient was seen and examined.
[2018-07-26] MEDS: ISOSORBIDE MONONITRATE ER 30 MG TAB.ER.24H PO SCH (16:39)
[2018-07-26] MEDS: PRAVASTATIN SODIUM 40 MG TAB PO SCH (19:53)
[2018-07-26] MEDS: DOCUSATE 100 MG CAP PO SCH (19:53)
[2018-07-27 07:29] LABS: HCT 43.3 % (34.0-46.0); MCH 29.6 pg (25.0-35.0); MCHC 32.3 g/dL (31.0-37.0); MCV 91.7 fL (80.0-100.0); Mean Platelet Volume 6.8; Platelet Count 214 k/uL (150-450); RBC 4.72 m/uL (3.80-5.40); RDW 15.3 % (11.5-15.5); WBC 9.4 k/uL (3.8-10.6)
[2018-07-27 07:50] LABS: Calcium 9.6 mg/dL (8.4-10.2); Potassium 4.2 mmol/L (3.5-5.1)
[2018-07-27] MEDS: ASPIRIN 81 MG PO SCH (07:56)
[2018-07-27] MEDS: LOSARTAN 25 MG TAB PO SCH (07:57)
[2018-07-27] MEDS: FUROSEMIDE 20 MG TAB PO SCH (07:57)
[2018-07-27] MEDS: SPIRONOLACTONE 25 MG TAB PO SCH (07:58)
[2018-07-27] MEDS: DOCUSATE 100 MG CAP PO SCH (07:58)
[2018-07-27] MEDS: ISOSORBIDE MONONITRATE ER 30 MG TAB.ER.24H PO SCH (07:58)
[2018-07-27 08:11] VITALS: RESP 18
[2018-07-27] MEDS ORDERED: FERROUS SULFATE 325 MG TAB PO SCH (09:00)
--- NOTE | 2018-07-27 11:07 | P.PN ---
Subjective Progress Note Date: 07/27/18 This is a 72-year-old female who presented to the hospital with symptoms of chest discomfort. She is a patient of Dr. Cuevas's in the office , underwent recent coronary artery bypass grafting surgery in January of this year , history of hyperlipidemia, paroxysmal atrial fibrillation and hypertension. At the end of April she presented with symptoms of chest discomfort and at that time underwent a repeat cardiac catheterization by Dr. Bernabe in the calf revealed a patent DURON to the LAD, patent saphenous vein graft to the diagonal branch to the obtuse marginal branch and the PDA of the right coronary artery. The PDA was small in caliber. Patient was treated medically and felt as though she may have some element of vasospastic disease and was initiated on nitrates. She again returned to the hospital on this admission again with symptoms of chest discomfort. Troponin 0.03, 0.02. Patient was seen and examined this morning, one episode of chest discomfort walking to the bathroom earlier today, pain-free at the time of my examination. She was complaining of the fact that her skin felt sore on her right lower extremity near her ankle. She can only feel it if he were to touch her skin gently otherwise there is no pain there at all. Let pressure 134/60 with a heart rate in the 60s 97% on 2 L of oxygen. Sodium 140, potassium 4.1, BUN 33, creatinine 1.2. 07/27/2018 Patient seen and examined this morning, denies any chest discomfort, she's been up ambulating without any difficulty. Quite eager to be discharged home today. Blood pressure 110/60 with a heart rate in the 50s, 95% on room air. White blood cell count 9.4, hemoglobin 14, sodium 140, potassium 4.2, BUN 37, creatinine 1.4. Objective - Vital Signs Vital signs: Vital Signs Temp 97.6 F 07/27/18 08:00 Pulse 58 L 07/27/18 08:00 Resp 18 07/27/18 08:00 BP 111/53 07/27/18 08:00 Pulse Ox 95 07/27/18 08:00 Intake & Output 07/26/18 07/27/18 07/27/18 18:59 06:59 18:59 Intake Total 600 240 Balance 600 240 Weight 76.5 kg Intake: Oral 600 240 Other: # Voids 1 2 0 # Bowel Movements 1 - Exam PHYSICAL EXAMINATION: GENERAL: 72-year-old female in no acute distress at the time of my examination HEENT: Head is atraumatic, normocephalic. Pupils equal, round. Sclera anicteric. Conjunctiva are clear. Mucous membranes of the mouth are moist. Neck is supple. There is no elevated jugular venous pressure.] bruit is heard. HEART EXAMINATION: Her S1 S2 1 systolic murmur is heard CHEST EXAMINATION: Lungs are clear to auscultation and precussion. No chest wall tenderness is noted on palpation or with deep breathing. ABDOMEN: Soft, nontender. Bowel sounds are heard. No organomegaly noted. EXTREMITIES: 2+ peripheral pulses with no evidence of peripheral edema and no calf tenderness noted. NEUROLOGIC patient is awake, alert and oriented ?-3. . - Labs CBC & Chem 7: 07/27/18 06:45 07/27/18 06:45 Labs: Abnormal Lab Results - Last 24 Hours (Table) 07/27/18 Range/Units 06:45 BUN 37 H (7-17) mg/dL Creatinine 1.41 H (0.52-1.04) mg/dL Assessment and Plan Plan: Assessment and plan #1 chest pain, no evidence to suggest acute coronary syndrome. Recent cardiac catheterization in April was performed, patient had bypass surgery earlier this year. After her heart cath in April medical therapy was advised. #2 ischemic cardiomyopathy with no evidence of congestive heart failure #3 paroxysmal atrial fibrillation, remaining in normal sinus rhythm #4 hypertension #5 hyperlipidemia Plan From cardiology standpoint we will continue current medications. She may be able to be discharged home from our standpoint, we'll make her a follow-up appointment in the office post discharge. DNP note has been reviewed, I agree with a documented findings and plan of care. Patient was seen and examined.
[2018-07-27] MEDS ORDERED: WARFARIN 5 MG TAB PO SCH (11:24)
[2018-07-27] MEDS ORDERED: PNEUMOCOCCAL VACC-PNEUMOVAX 23 25 MCG/0.5 ML VIAL IM ONE (12:02)
[2018-07-27] MEDS: METOPROLOL TARTRATE 25 MG TAB PO SCH (12:04)
[2018-07-27 12:47] VITALS: BP 122/87; PULSE 67; TEMP 97.8
--- NOTE | 2018-07-27 13:01 | P.DS ---
Providers Date of admission: 07/25/18 17:59 Attending physician: Aleksandr Duarte Consults: 07/25/18 17:59 Consult Physician Urgent Consulting Provider: Sudeep Hays Consult Reason/Comments: stemi Do you want consulting provider notified?: Yes Primary care physician: Ranjeet Concepcion [facility] Course: 72-year-old pleasant female the came to ER with complaints of chest pain pressure-like sensation radiating to the neck area had history of a cardiac infarction in the past CABG also had a recent cardiac catheterization which did not show any significant extent table coronary atherosclerotic vascular occlusive disease. Patient's symptoms completely resolved at this point of time patient was evaluated by cardiology. Cardiology believes patient has a coronaryvasospasmn the recommending long-acting the nitrates upon discharge and monitoring were for 1 more night area at patient does have severe ischemic myopathy ejection fraction of around 25% patient is presently euvolemic without any heart failure symptoms denied any significant shortness of breath diaphoresis. Patient's troponins are negative please refer to cardiology dictation for EKG findings. Mildly elevated white blood cell count reactive in nature without any signs or symptoms of infection creatinine 1.26 baseline around 0.8- 0.9. 07/27/2018 No overnight events patient doesn't have any chest pain patient is cleared for discharge although her creatinine went up to 1.4 lately her baseline has been between 1.2-1.4, few months ago it was 0.8-0.9 patient may have cardiorenal syndrome. Repeat basic metabolic profile will be obtained in 3 days and patient will be discharged today and will be discharged on isosorbide mononitrate for vasospasm. PHYSICAL EXAMINATION: GENERAL: The patient is alert and oriented x3, not in any acute distress. Well developed, well nourished. HEENT: Pupils are round and equally reacting to light. EOMI. No scleral icterus. No conjunctival pallor. Normocephalic, atraumatic. No pharyngeal erythema. No thyromegaly. CARDIOVASCULAR: S1 and S2 present. No murmurs, rubs, or gallops. PULMONARY: Chest is clear to auscultation, no wheezing or crackles. ABDOMEN: Soft, nontender, nondistended, normoactive bowel sounds. No palpable organomegaly. MUSCULOSKELETAL: No joint swelling or deformity. EXTREMITIES: No cyanosis, clubbing, or pedal edema. NEUROLOGICAL: Gross neurological examination did not reveal any focal deficits. SKIN: No rashes. Assessment and Plan Plan: -Episode of chest discomfort secondary to possible coronary vaso- spasm, recent cardiac catheterization and please refer to cardiology dictation for further details. -Coronary artery disease with bypass grafting in the past -Severe ischemic cardiomyopathy chronic systolic dysfunction not in acute exacerbation -Proximal atrial fibrillation presently rate controlled sinus rhythm, on anti- correlation with Coumadin therapy, anticoagulation -Hypertension -Acute renal failure: Patient may have cardiorenal syndrome. -Leukocytosis: Reactive in nature without any signs or symptoms of infection -Hyperlipidemia Patient Condition at Discharge: Serious Plan - Discharge Summary Discharge Rx Participant: No New Discharge Prescriptions: New Isosorbide Mononitrate ER [Imdur] 30 mg PO DAILY #30 tab.er.24h Continue Aspirin 81 mg PO DAILY #30 chew Metoprolol Tartrate [Lopressor] 25 mg PO DAILY Losartan [Cozaar] 25 mg PO DAILY #30 tab Furosemide [Lasix] 20 mg PO BID #60 tab Pravastatin Sodium [Pravachol] 40 mg PO HS Ferrous Sulfate [Iron (65 MG Elemental)] 325 mg PO DAILY Nitroglycerin Sl Tabs [Nitrostat] 0.4 mg SUBLINGUAL Q5M PRN #20 tab PRN Reason: Chest Pain Warfarin [Coumadin] 5 mg PO SUMOTUTHFRSA Warfarin [Coumadin] 2.5 mg PO WE Spironolactone [Aldactone] 25 mg PO DAILY Docusate [Colace] 100 mg PO BID Discharge Medication List Aspirin 81 mg PO DAILY #30 chew 02/10/18 [Rx] Metoprolol Tartrate [Lopressor] 25 mg PO DAILY 02/27/18 [History] Furosemide [Lasix] 20 mg PO BID #60 tab 02/28/18 [Rx] Losartan [Cozaar] 25 mg PO DAILY #30 tab 02/28/18 [Rx] Ferrous Sulfate [Iron (65 MG Elemental)] 325 mg PO DAILY 05/20/18 [History] Pravastatin Sodium [Pravachol] 40 mg PO HS 05/20/18 [History] Nitroglycerin Sl Tabs [Nitrostat] 0.4 mg SUBLINGUAL Q5M PRN #20 tab 05/21/18 [Rx ] Docusate [Colace] 100 mg PO BID 07/25/18 [History] Spironolactone [Aldactone] 25 mg PO DAILY 07/25/18 [History] Warfarin [Coumadin] 2.5 mg PO WE 07/25/18 [History] Warfarin [Coumadin] 5 mg PO SUMOTUTHFRSA 07/25/18 [History] Isosorbide Mononitrate ER [Imdur] 30 mg PO DAILY #30 tab.er.24h 07/27/18 [Rx] Follow up Appointment(s)/Referral(s): Sudeep Hays MD [STAFF PHYSICIAN] - 08/15/18 8:30 am (Wednesday) Ramón Pollack MD [Primary Care Provider] - 08/02/18 1:40 pm (Wednesday) Ambulatory/Diagnostic Orders: Basic Metabolic Panel [LAB.AMB] Time Frame: 3 Days, Location: None Selected Discharge Disposition: HOME SELF-CARE
== END 2018-07-27 12:58 | disposition home or self-care (01) | DRG 303 ==
LOC: EC 17:33 → 6ICU 17:59 → 6SEL 19:15
PROVIDERS: ADMIT Hospitalist; ATTEND Hospitalist
DX: I25.111 Atherosclerotic heart disease of native coronary artery with angina pectoris with documented spasm (principal); N17.9 Acute kidney failure, unspecified; I50.22 Chronic systolic (congestive) heart failure; Z87.891 Personal history of nicotine dependence; D72.829 Elevated white blood cell count, unspecified; E78.5 Hyperlipidemia, unspecified; I08.1 Rheumatic disorders of both mitral and tricuspid valves; I10 Essential (primary) hypertension; I25.2 Old myocardial infarction; I25.5 Ischemic cardiomyopathy; I48.0 Paroxysmal atrial fibrillation; T50.2X5A Adverse effect of carbonic-anhydrase inhibitors, benzothiadiazides and other diuretics, initial encounter; Z79.01 Long term (current) use of anticoagulants; Z79.82 Long term (current) use of aspirin; Z79.899 Other long term (current) drug therapy; Z82.49 Family history of ischemic heart disease and other diseases of the circulatory system; Z95.1 Presence of aortocoronary bypass graft; Z80.9 Family history of malignant neoplasm, unspecified; Z82.0 Family history of epilepsy and other diseases of the nervous system; I11.0 Hypertensive heart disease with heart failure; M10.9 Gout, unspecified
CPT/HCPCS: 36415; 71045; 80048; 80053; 80061; 82550; 82553; 83690; 83735; 84484; 85027; 85049; 85610; 85730; 90732; 93005; 96374; 99291

== ENCOUNTER → 2018-08-04 | Outpatient (CLI) | payer MEDICARE ==
[2018-08-04 08:16] LABS: HCT 40.8 % (34.0-46.0); HGB 13.9 gm/dL (11.4-16.0); MCH 31.1 pg (25.0-35.0); MCHC 34.1 g/dL (31.0-37.0); MCV 91.2 fL (80.0-100.0); Platelet Count 192 k/uL (150-450); RBC 4.48 m/uL (3.80-5.40); RDW 15.4 % (11.5-15.5); WBC 8.2 k/uL (3.8-10.6)
[2018-08-04 08:30] LABS: Appearance,Urine Clear (Clear); Bilirubin,Urine Negative (Negative); Blood,Urine Trace (Negative); Color,Urine Light Yellow; Glucose,Urine (UA) Negative (Negative); Ketones,Urine Negative (Negative); Leukocyte Esterase,Urine Trace (Negative); Mucus,Urine Rare /hpf; Nitrite,Urine Negative (Negative); Protein,Urine Negative (Negative); Squamous Epithelial Cell,Urine 4 /hpf (0-4); Urobilinogen,Urine <2.0 mg/dL (<2.0); WBC,Urine 1 /hpf (0-5)
[2018-08-04 08:33] LABS: Albumin 4.3 g/dL (3.5-5.0); Calcium 9.5 mg/dL (8.4-10.2); Magnesium 2.2 mg/dL (1.6-2.3); Phosphorus 3.6 mg/dL (2.5-4.5); Total Bilirubin 0.5 mg/dL (0.2-1.3); Total Protein 7.2 g/dL (6.3-8.2); Uric Acid 9.1 mg/dL (3.7-7.4)
[2018-08-04 16:27] LABS: Iron Saturation 22.18 (12.00-45.00)
[2018-08-04 16:36] LABS: Vitamin D 25 Hydroxy 44.6 ng/mL (30.0-100.0)
[2018-08-04 18:53] LABS: Parathyroid Hormone Intact 83.7 pg/mL (14.0-72.0)
== END | disposition home or self-care (01) ==
LOC: LABWHC1 07:22
PROVIDERS: ATTEND Internal Medicine
DX: E55.9 Vitamin D deficiency, unspecified (principal); E21.3 Hyperparathyroidism, unspecified; M10.9 Gout, unspecified; N39.0 Urinary tract infection, site not specified; D64.9 Anemia, unspecified; N17.9 Acute kidney failure, unspecified
CPT/HCPCS: 36415; 80053; 81001; 82306; 82728; 83540; 83550; 83735; 83970; 84100; 84550; 85027

== ENCOUNTER → 2018-11-09 | Outpatient (CLI) | payer MEDICARE ==
[2018-11-09 08:05] LABS: Basophils # (A) 0.1 k/uL (0-0.2); Basophils % (A) 1 %; Eosinophils # (A) 0.3 k/uL (0-0.7); Eosinophils % (A) 4 %; HCT 47.6 % (34.0-46.0); HGB 16.1 gm/dL (11.4-16.0); Lymphocytes % (A) 13 %; MCH 31.9 pg (25.0-35.0); MCHC 33.8 g/dL (31.0-37.0); MCV 94.5 fL (80.0-100.0); Mean Platelet Volume 7.1; Monocytes # (A) 0.4 k/uL (0-1.0); Monocytes % (A) 6 %; Neutrophils % (A) 76 %; Platelet Count 255 k/uL (150-450); RBC 5.04 m/uL (3.80-5.40); RDW 14.2 % (11.5-15.5); WBC 7.9 k/uL (3.8-10.6)
[2018-11-09 08:28] LABS: Appearance,Urine Cloudy (Clear); Bilirubin,Urine Negative (Negative); Blood,Urine Trace (Negative); Color,Urine Yellow; Glucose,Urine (UA) Negative (Negative); Ketones,Urine Negative (Negative); Leukocyte Esterase,Urine Trace (Negative); Mucus,Urine Rare /hpf; Nitrite,Urine Negative (Negative); Protein,Urine Negative (Negative); RBC,Urine 1 /hpf (0-5); Specific Gravity,Urine 1.012 (1.001-1.035); Squamous Epithelial Cell,Urine 5 /hpf (0-4); Urobilinogen,Urine <2.0 mg/dL (<2.0); WBC,Urine 2 /hpf (0-5)
[2018-11-09 11:22] LABS: Iron Saturation 28.13 (12.00-45.00)
[2018-11-09 11:26] LABS: Parathyroid Hormone Intact 46.8 pg/mL (14.0-72.0)
[2018-11-09 11:27] LABS: Albumin 4.8 g/dL (3.80-4.90); Albumin/Globulin Ratio 2.29 (1.20-2.10); Anion Gap 9.3 mmol/L (4.00-12.00); Carbon Dioxide 24.7 mmol/L (21.6-31.8); Globulin 2.1 g/dL (1.6-3.3); Magnesium 2.2 mg/dL (1.5-2.4); Phosphorus 4.6 mg/dL (2.4-5.1); Potassium 4.3 mmol/L (3.5-5.5); Total Bilirubin 0.7 mg/dL (0.3-1.2); Total Protein 6.9 g/dL (6.2-8.2); Uric Acid 6.6 mg/dL (2.9-7.7)
[2018-11-09 11:31] LABS: Vitamin D 25 Hydroxy 36.9 ng/mL (30.0-100.0)
== END ==
LOC: LABWHC1 07:18
PROVIDERS: ATTEND Nurse Practitioner Family
DX: N17.9 Acute kidney failure, unspecified (principal)
CPT/HCPCS: 36415; 80053; 81001; 82306; 82728; 83540; 83550; 83735; 83970; 84100; 84550; 85025; 85027

== ENCOUNTER 2019-01-26 21:26 | Emergency (ER) | payer MEDICARE ==
--- NOTE | 2019-01-26 21:53 | ED ---
ENT HPI - General Chief complaint: ENT Stated complaint: Nosebleed/Blood Thinners Time Seen by Provider: 01/26/19 21:52 Source: patient Mode of arrival: ambulatory Limitations: no limitations - History of Present Illness Initial comments: Radha is a 73-year-old female who is on Coumadin who presents the emergency department today for evaluation of nosebleed. Reports she noticed bleeding from her right near at approximately 6:30 PM this evening she's been trying to apply pressure but is had a persistent dripping of blood which prompted her to come to the ER this evening. Patient reports that she currently is on Coumadin. She was previously on 5 mg some days and 7.5 every other day however during her previous admission it was noted that her INR was low and her Coumadin was increased to 7.5 daily. Patient states that she had her INR checked recently and it was 3.2 she is concerned today that her INR may be elevated. - Related Data Home Medications Medication Instructions Recorded Confirmed Docusate [Colace] 100 mg PO BID 07/25/18 01/26/19 Spironolactone [Aldactone] 25 mg PO DAILY 07/25/18 01/26/19 Warfarin [Coumadin] 5 mg PO MOFR 07/25/18 01/26/19 Alirocumab [Praluent Pen] 75 mg SQ Q14D 01/12/19 01/26/19 Allopurinol [Zyloprim] 200 mg PO HS 01/12/19 01/26/19 Furosemide [Lasix] 20 mg PO DAILY 01/12/19 01/26/19 Losartan [Cozaar] 25 mg PO HS 01/12/19 01/26/19 Metoprolol Succinate [Toprol XL] 25 mg PO DAILY 01/12/19 01/26/19 Pravastatin Sodium 80 mg PO HS 01/12/19 01/26/19 Warfarin [Coumadin] 7.5 mg PO SUTUWETHSA 01/12/19 01/26/19 Nitroglycerin Sl Tabs [Nitrostat] 0.4 mg SUBLINGUAL Q5M PRN 01/26/19 01/26/19 Previous Rx's Medication Instructions Recorded Aspirin 81 mg PO DAILY #30 chew 02/10/18 Isosorbide Mononitrate ER [Imdur] 30 mg PO DAILY #90 tab.er.24h 01/13/19 Cephalexin [Keflex] 500 mg PO Q12HR #10 cap 01/26/19 Allergies Allergy/AdvReac Type Severity Reaction Status Date / Time atorvastatin calcium Allergy Swelling Verified 01/26/19 22:45 [From Lipitor] benazepril Allergy irregular Verified 01/26/19 22:45 heart rate amlodipine AdvReac muscle Verified 01/26/19 22:45 cramps Review of Systems ROS Statement: Those systems with pertinent positive or pertinent negative responses have been documented in the HPI. ROS Other: All systems not noted in ROS Statement are negative. 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 Last Myocardial Infarction Date:: History of Any Multi-Drug Resistant Organisms: None Reported Past Surgical History: Coronary Bypass/CABG Additional Past Surgical History / Comment(s): "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, CABG 4 vessels in 2018, D&C hysteroscopy for endometrial polps Past Anesthesia/Blood Transfusion Reactions: No Reported Reaction Additional Past Anesthesia/Blood Transfusion Reaction / Comment(s): past blood transfusion with CABG-no reaction Past Psychological History: No Psychological Hx Reported Smoking Status: Former smoker Past Alcohol Use History: None Reported Past Drug Use History: None Reported - Past Family History Mother Family Medical History: Myocardial Infarction (NV) Additional Family Medical History / Comment(s): Mother of a NV at the age of 69yrs. Father Family Medical History: Myocardial Infarction (NV) Additional Family Medical History / Comment(s): Father of a NV at the age of 69 yrs Brother(s) Family Medical History: Neurologic Disorder Sister(s) Family Medical History: Cancer, Myocardial Infarction (NV) General Exam - General Exam Comments Initial Comments: Physical Exam GENERAL: Patient is well-developed and well-nourished. Patient is nontoxic and well- hydrated and is in no distress. HENT: Blood oozing from the right naris EYES: PERRL, EOMI PULMONARY: Unlabored respirations. No audible rales rhonchi or wheezing was noted. CARDIOVASCULAR: There is a regular rate and rhythm without any murmurs gallops or rubs. ABDOMEN: Soft and nontender with normal bowel sounds. SKIN: Skin is clear with no lesions or rashes and otherwise unremarkable. : Deferred NEUROLOGIC: Patient is alert and oriented x3. Moving all extremities spontaneously MUSCULOSKELETAL: Normal extremities with adequate strength and full range of motion. No lower extremity swelling or edema. No calf tenderness. PSYCHIATRIC: Normal psychiatric evaluation. Limitations: no limitations Limitations: no limitations Course Vital Signs 01/26/19 21:46 Temperature 98.4 F Pulse Rate 79 Respiratory 20 Rate Blood Pressure 176/81 O2 Sat by Pulse 95 Oximetry Medical Decision Making - Medical Decision Making She was seen and evaluated history is obtained from the patient and review of medical record Labs were ordered Nasal clamp had been applied however patient had persistent ooze of blood after 30 minutes of direct pressure Labs are unremarkable INR is within goal at 2.4 hemoglobin stable at 15.5 Patient's nose was packed with gauze soaked in lidocaine with epinephrine and again the nasal clamp was applied. This remained in place for approximately 15 minutes and sign patient's nose was then packed with 10cm Merocel packing Bleeding was controlled with Merocel Lab results were discussed with patient Advised patient that she will be discharged with PO antobiotics, she can follow up with ENT outpatient for removal in 5 days - Lab Data Result diagrams: 01/26/19 22:20 01/26/19 22:20 Lab Results 01/26/19 01/26/19 01/26/19 Range/Units 22:20 22:20 22:20 WBC 11.6 H (3.8-10.6) k/uL RBC 5.17 (3.80-5.40) m/uL Hgb 15.5 (11.4-16.0) gm/dL Hct 46.4 H (34.0-46.0) % MCV 89.6 (80.0-100.0) fL MCH 29.9 (25.0-35.0) pg MCHC 33.4 (31.0-37.0) g/dL RDW 14.6 (11.5-15.5) % Plt Count 257 (150-450) k/uL Neutrophils % 77 % Lymphocytes % 12 % Monocytes % 6 % Eosinophils % 4 % Basophils % 1 % Neutrophils # 8.9 H (1.3-7.7) k/uL Lymphocytes # 1.4 (1.0-4.8) k/uL Monocytes # 0.6 (0-1.0) k/uL Eosinophils # 0.4 (0-0.7) k/uL Basophils # 0.1 (0-0.2) k/uL PT 22.9 H (9.0-12.0) sec INR 2.4 H (<1.2) APTT 38.4 H (22.0-30.0) sec Sodium 140 (137-145) mmol/L Potassium 4.8 (3.5-5.1) mmol/L Chloride 104 (98-107) mmol/L Carbon Dioxide 22 (22-30) mmol/L Anion Gap 14 mmol/L BUN 44 H (7-17) mg/dL Creatinine 1.10 H (0.52-1.04) mg/dL Est GFR (CKD-EPI)AfAm 58 (>60 ml/min/1.73 sqM) Est GFR (CKD-EPI)NonAf 51 (>60 ml/min/1.73 sqM) Glucose 82 (74-99) mg/dL Calcium 10.3 H (8.4-10.2) mg/dL Total Bilirubin 0.7 (0.2-1.3) mg/dL AST 35 (14-36) U/L ALT 41 (9-52) U/L Alkaline Phosphatase 68 (38-126) U/L Total Protein 7.6 (6.3-8.2) g/dL Albumin 4.7 (3.5-5.0) g/dL Disposition Clinical Impression: Anterior epistaxis Disposition: HOME SELF-CARE Instructions (If sedation given, give patient instructions): Nosebleed (ED) Prescriptions: Cephalexin [Keflex] 500 mg PO Q12HR #10 cap Is patient prescribed a controlled substance at d/c from ED?: No Referrals: Ramón Pollack MD [Primary Care Provider] - 1-2 days
[2019-01-26] MEDS ORDERED: LIDOCAINE 1%-EPI 1:100,000 20 ML VIAL SQ STA (22:07)
[2019-01-26] MEDS ORDERED: OXYMETAZOLINE 0.05% NASL SPRAY 1 SPRAY BOTTLE NASAL STA (22:17)
[2019-01-26 22:39] LABS: Basophils # (A) 0.1 k/uL (0-0.2); Basophils % (A) 1 %; Eosinophils # (A) 0.4 k/uL (0-0.7); Eosinophils % (A) 4 %; HCT 46.4 % (34.0-46.0); HGB 15.5 gm/dL (11.4-16.0); Lymphocytes # (A) 1.4 k/uL (1.0-4.8); Lymphocytes % (A) 12 %; MCH 29.9 pg (25.0-35.0); MCHC 33.4 g/dL (31.0-37.0); MCV 89.6 fL (80.0-100.0); Mean Platelet Volume 8.6; Monocytes # (A) 0.6 k/uL (0-1.0); Monocytes % (A) 6 %; Neutrophils # (A) 8.9 k/uL (1.3-7.7); Neutrophils % (A) 77 %; Platelet Count 257 k/uL (150-450); RBC 5.17 m/uL (3.80-5.40); RDW 14.6 % (11.5-15.5); WBC 11.6 k/uL (3.8-10.6)
[2019-01-26 22:49] LABS: Albumin 4.7 g/dL (3.5-5.0); Calcium 10.3 mg/dL (8.4-10.2); Total Bilirubin 0.7 mg/dL (0.2-1.3); Total Protein 7.6 g/dL (6.3-8.2)
[2019-01-26 22:50] LABS: Potassium 4.8 mmol/L (3.5-5.1)
[2019-01-26 22:58] LABS: INR 2.4 (<1.2); Partial Thromboplastin Time 38.4 sec (22.0-30.0); Prothrombin Time 22.9 sec (9.0-12.0)
[2019-01-26] MEDS ORDERED: CEPHALEXIN 500MG STARTER PACK 4 CAP BTL PO STA (23:08)
[2019-01-27 00:27] VITALS: TEMP 99
--- NOTE | 2019-01-27 00:57 | CT ---
EXAM: CT Head Without Intravenous Contrast CLINICAL HISTORY: ITS.REASON CT Reason: fall head injury TECHNIQUE: Axial computed tomography images of the head/brain without intravenous contrast. CTDI is 45 mGy and DLP is 1054 mGy-cm. This CT exam was performed using one or more of the following dose reduction techniques: automated exposure control, adjustment of the mA and/or kV according to patient size, and/or use of iterative reconstruction technique. COMPARISON: No relevant prior studies available. FINDINGS: Brain: No large hypodensity, or mass effect. Chronic microvascular ischemic changes. 1.4 cm hyperdensity in the right quadrigeminal cistern. Ventricles: No hydrocephalus. Age-appropriate cerebral volume loss. Bones/joints: Unremarkable. Soft tissues: Unremarkable. Sinuses: Air-fluid level in the right maxillary sinus. Mastoid air cells: Clear. IMPRESSION: Small amount of likely subarachnoid hemorrhage in the right quadrigeminal cistern. No midline shift, herniation, or mass effect. EXAM: CT Cervical Spine Without Intravenous Contrast CLINICAL HISTORY: ITS.REASON CT Reason: fall head injury TECHNIQUE: Axial computed tomography images of the cervical spine without intravenous contrast. CTDI is 12 mGy and DLP is 368 mGy-cm. This CT exam was performed using one or more of the following dose reduction techniques: automated exposure control, adjustment of the mA and/or kV according to patient size, and/or use of iterative reconstruction technique. COMPARISON: No relevant prior studies available. FINDINGS: Vertebrae: No acute fracture. Discs/spinal canal/neural foramina: Moderate spinal canal stenosis at C4-5 and C5-6 secondary to osteophytes.. Soft tissues: Mild centrilobular emphysema. IMPRESSION: No acute fracture or subluxation. <MYCVCSECTION> Critical Value Communications 01/27/19 01:22 Verify Receipt Verified receipt with HENRY Zamora; Given to Ariane Gottlieb on 01/27 01:22 (-04:00)
[2019-01-27] MEDS ORDERED: PHYTONADIONE 10 MG in SODIUM CHLORIDE 0.9% 50 ML IVPB STA (01:25)
[2019-01-27 01:34] VITALS: BP 141/77; PULSE 64; RESP 18
== END 2019-01-27 01:50 | disposition short-term general hospital (02) ==
LOC: EC 21:26
DX: S06.6X0A Traumatic subarachnoid hemorrhage without loss of consciousness, initial encounter (principal); R04.0 Epistaxis; E78.5 Hyperlipidemia, unspecified; I10 Essential (primary) hypertension; I25.10 Atherosclerotic heart disease of native coronary artery without angina pectoris; I25.2 Old myocardial infarction; I48.0 Paroxysmal atrial fibrillation; M10.9 Gout, unspecified; Z87.891 Personal history of nicotine dependence; Z79.01 Long term (current) use of anticoagulants; Z79.899 Other long term (current) drug therapy; Z88.8 Allergy status to other drugs, medicaments and biological substances; Z87.01 Personal history of pneumonia (recurrent); Z95.1 Presence of aortocoronary bypass graft; W18.30XA Fall on same level, unspecified, initial encounter; W22.8XXA Striking against or struck by other objects, initial encounter; Y92.238 Other place in hospital as the place of occurrence of the external cause
CPT/HCPCS: 30901; 36415; 70450; 72125; 80053; 85025; 85610; 85730; 93005; 99285

== ENCOUNTER → 2019-01-30 | Outpatient (CLI) | payer MEDICARE ==
[2019-01-30 09:15] LABS: HCT 40.7 % (34.0-46.0); HGB 13.2 gm/dL (11.4-16.0); MCH 29.7 pg (25.0-35.0); MCHC 32.4 g/dL (31.0-37.0); MCV 91.8 fL (80.0-100.0); Mean Platelet Volume 7.2; Platelet Count 218 k/uL (150-450); RBC 4.43 m/uL (3.80-5.40); RDW 14.1 % (11.5-15.5); WBC 8.8 k/uL (3.8-10.6)
[2019-01-30 09:18] LABS: Appearance,Urine Clear (Clear); Bilirubin,Urine Negative (Negative); Blood,Urine Negative (Negative); Color,Urine Light Yellow; Glucose,Urine (UA) Negative (Negative); Ketones,Urine Negative (Negative); Leukocyte Esterase,Urine Negative (Negative); Nitrite,Urine Negative (Negative); PH, Urine 6.5 (5.0-8.0); Protein,Urine Negative (Negative); Specific Gravity,Urine 1.006 (1.001-1.035); Urobilinogen,Urine <2.0 mg/dL (<2.0)
[2019-01-30 16:28] LABS: Iron Saturation 24.73 (12.00-45.00)
[2019-01-30 16:35] LABS: Vitamin D 25 Hydroxy 43.4 ng/mL (30.0-100.0)
[2019-01-30 16:41] LABS: Albumin 4.7 g/dL (3.80-4.90); Albumin/Globulin Ratio 2.24 (1.60-3.17); Anion Gap 6.8 mmol/L (4.00-12.00); Calcium 9.9 mg/dL (8.7-10.3); Carbon Dioxide 25.2 mmol/L (21.6-31.8); Globulin 2.1 g/dL (1.6-3.3); LDL Cholesterol,Calculated 26.2 mg/dL (0.0-131.0); Magnesium 2.2 mg/dL (1.5-2.4); Phosphorus 3.6 mg/dL (2.4-5.1); Potassium 4.3 mmol/L (3.5-5.5); Total Bilirubin 0.5 mg/dL (0.3-1.2); Total Protein 6.8 g/dL (6.2-8.2); Uric Acid 4.5 mg/dL (2.9-7.7); VLDL Calculation 28.8 mg/dL (5.00-40.00)
[2019-01-30 16:49] LABS: Parathyroid Hormone Intact 47.2 pg/mL (14.0-72.0)
== END | disposition home or self-care (01) ==
LOC: LABWHC1 07:38
PROVIDERS: ATTEND Internal Medicine
DX: N39.0 Urinary tract infection, site not specified (principal); E21.3 Hyperparathyroidism, unspecified; E55.9 Vitamin D deficiency, unspecified; M10.9 Gout, unspecified; D63.1 Anemia in chronic kidney disease; N18.3 Chronic kidney disease, stage 3 (moderate); E78.00 Pure hypercholesterolemia, unspecified
CPT/HCPCS: 36415; 80053; 80061; 81003; 82306; 82728; 83540; 83550; 83735; 83970; 84100; 84550; 85027

== ENCOUNTER → 2019-07-03 | Outpatient (CLI) | payer MEDICARE ==
[2019-07-03 08:23] LABS: HCT 47.2 % (34.0-46.0); HGB 15.6 gm/dL (11.4-16.0); MCH 30.7 pg (25.0-35.0); Mean Platelet Volume 6.7; Platelet Count 187 k/uL (150-450); RBC 5.08 m/uL (3.80-5.40); WBC 6.6 k/uL (3.8-10.6)
[2019-07-03 08:28] LABS: Appearance,Urine Clear (Clear); Bilirubin,Urine Negative (Negative); Blood,Urine Negative (Negative); Color,Urine Yellow; Glucose,Urine (UA) Negative (Negative); Ketones,Urine Negative (Negative); Leukocyte Esterase,Urine Small (Negative); Nitrite,Urine Negative (Negative); Protein,Urine Negative (Negative); RBC,Urine 1 /hpf (0-5); Specific Gravity,Urine 1.018 (1.001-1.035); Squamous Epithelial Cell,Urine 2 /hpf (0-4); Urobilinogen,Urine <2.0 mg/dL (<2.0); WBC,Urine 2 /hpf (0-5)
[2019-07-03 16:12] LABS: Iron Saturation 24.04 (12.00-45.00)
[2019-07-03 16:18] LABS: Ferritin 191.6 ng/mL (10.0-291.0); Vitamin D 25 Hydroxy 43.4 ng/mL (30.0-100.0)
[2019-07-03 16:24] LABS: African American GFR (CKD) 65.6 (60.0-200.0); Albumin 4.7 g/dL (3.80-4.90); Albumin/Globulin Ratio 2.14 (1.60-3.17); Anion Gap 9.3 mmol/L (4.00-12.00); Calcium 10.3 mg/dL (8.7-10.3); Carbon Dioxide 25.7 mmol/L (21.6-31.8); Globulin 2.2 g/dL (1.6-3.3); Magnesium 2.3 mg/dL (1.5-2.4); Phosphorus 4.2 mg/dL (2.4-5.1); Potassium 4.8 mmol/L (3.5-5.5); Total Bilirubin 0.7 mg/dL (0.3-1.2); Total Protein 6.9 g/dL (6.2-8.2); Uric Acid 4.3 mg/dL (2.9-7.7)
== END | disposition home or self-care (01) ==
LOC: LABWHC1 07:26
PROVIDERS: ATTEND Internal Medicine
DX: M10.9 Gout, unspecified (principal); N39.0 Urinary tract infection, site not specified; D63.1 Anemia in chronic kidney disease; N18.3 Chronic kidney disease, stage 3 (moderate); E55.9 Vitamin D deficiency, unspecified; N25.81 Secondary hyperparathyroidism of renal origin
CPT/HCPCS: 36415; 80053; 81001; 82306; 82728; 83540; 83550; 83735; 83970; 84100; 84550; 85027

== ENCOUNTER → 2019-11-01 | Outpatient (CLI) | payer MEDICARE ==
[2019-11-01 07:08] LABS: Basophils # (A) 0.1 k/uL (0-0.2); Basophils % (A) 1 %; Eosinophils # (A) 0.6 k/uL (0-0.7); Eosinophils % (A) 8 %; HCT 47.2 % (34.0-46.0); HGB 15.1 gm/dL (11.4-16.0); Lymphocytes % (A) 13 %; MCH 30.5 pg (25.0-35.0); MCHC 31.9 g/dL (31.0-37.0); MCV 95.5 fL (80.0-100.0); Mean Platelet Volume 7.4; Monocytes # (A) 0.5 k/uL (0-1.0); Monocytes % (A) 6 %; Neutrophils # (A) 5.5 k/uL (1.3-7.7); Neutrophils % (A) 71 %; Platelet Count 187 k/uL (150-450); RBC 4.95 m/uL (3.80-5.40); RDW 13.6 % (11.5-15.5); WBC 7.7 k/uL (3.8-10.6)
[2019-11-01 07:24] LABS: Prothrombin Time 19.8 sec (9.0-12.0)
[2019-11-01 16:36] LABS: African American GFR (CKD) 58.1 (60.0-200.0); Albumin 4.7 g/dL (3.80-4.90); Albumin/Globulin Ratio 2.35 (1.60-3.17); Anion Gap 8.1 mmol/L (4.00-12.00); BUN/Creat Ratio 40.91 Ratio (12.00-20.00); Carbon Dioxide 28.9 mmol/L (21.6-31.8); Chol/HDL Ratio 3.03; LDL Cholesterol,Calculated 42.8 mg/dL (0.0-131.0); Non-African American GFR(CKD) 50.1 (60.0-200.0); Potassium 4.6 mmol/L (3.5-5.5); Total Bilirubin 0.6 mg/dL (0.2-1.2); Total Protein 6.7 g/dL (6.2-8.2); VLDL Calculation 26.2 mg/dL (5.00-40.00)
== END | disposition home or self-care (01) ==
LOC: LABWHC1 06:41
PROVIDERS: ATTEND Internal Medicine
DX: I10 Essential (primary) hypertension (principal); I25.10 Atherosclerotic heart disease of native coronary artery without angina pectoris; E78.5 Hyperlipidemia, unspecified; Z79.01 Long term (current) use of anticoagulants
CPT/HCPCS: 36415; 80053; 80061; 85025; 85610

== ENCOUNTER → 2020-01-08 | Outpatient (CLI) | payer MEDICARE | END | disposition home or self-care (01) | CPT/HCPCS: 36415; 80053; 81001; 84550; 85025 ==

== ENCOUNTER → 2020-04-05 | Outpatient (CLI) | payer MEDICARE ==
[2020-04-05 16:17] LABS: African American GFR (CKD) 65.2 (60.0-200.0); Anion Gap 8.4 mmol/L (4.00-12.00); Calcium 9.3 mg/dL (8.7-10.3); Carbon Dioxide 26.6 mmol/L (21.6-31.8); Non-African American GFR(CKD) 56.2 (60.0-200.0); Potassium 3.9 mmol/L (3.5-5.5)
== END | disposition home or self-care (01) ==
LOC: LABWHC1 07:59
PROVIDERS: ATTEND Physician Assistant
DX: R53.83 Other fatigue (principal); I49.5 Sick sinus syndrome; I47.1 Supraventricular tachycardia
CPT/HCPCS: 36415; 80048; 84443

== ENCOUNTER → 2020-06-11 | Outpatient (CLI) | payer MEDICARE ==
[2020-06-11 18:21] LABS: African American GFR (CKD) 58.1 (60.0-200.0); Anion Gap 11.6 mmol/L (4.00-12.00); BUN/Creat Ratio 28.18 Ratio (12.00-20.00); Carbon Dioxide 26.4 mmol/L (21.6-31.8); Magnesium 2.2 mg/dL (1.5-2.4); Non-African American GFR(CKD) 50.1 (60.0-200.0)
== END | disposition home or self-care (01) ==
LOC: LABWHC1 09:38
PROVIDERS: ATTEND Nurse Practitioner Adult Health
DX: I10 Essential (primary) hypertension (principal)
CPT/HCPCS: 36415; 80048; 83735

== ENCOUNTER → 2020-08-05 | Outpatient (CLI) | payer MEDICARE ==
[2020-08-05 10:54] LABS: HCT 46.1 % (34.0-46.0); HGB 15.2 gm/dL (11.4-16.0); MCH 31.3 pg (25.0-35.0); MCV 94.9 fL (80.0-100.0); Mean Platelet Volume 6.7; Platelet Count 198 k/uL (150-450); RBC 4.86 m/uL (3.80-5.40); RDW 13.6 % (11.5-15.5); WBC 6.7 k/uL (3.8-10.6)
[2020-08-05 15:21] LABS: % Iron Saturation 23.03 (12.00-45.00); Anion Gap 6.4 mmol/L (4.00-12.00); BUN/Creat Ratio 31.11 Ratio (12.00-20.00); Calcium 9.5 mg/dL (8.7-10.3); Carbon Dioxide 27.6 mmol/L (21.6-31.8); Magnesium 2.1 mg/dL (1.5-2.4); Non-African American GFR(CKD) 63.9 (60.0-200.0); Phosphorus 2.9 mg/dL (2.4-5.1); Potassium 4.3 mmol/L (3.5-5.5)
[2020-08-05 15:29] LABS: Ferritin 133.6 ng/mL (10.0-291.0)
[2020-08-05 20:03] LABS: Urine Creatinine 80.9 mg/dL
== END | disposition home or self-care (01) ==
LOC: LABWHC1 09:27
PROVIDERS: ATTEND Nurse Practitioner Family
DX: E55.9 Vitamin D deficiency, unspecified (principal); R80.9 Proteinuria, unspecified; N25.81 Secondary hyperparathyroidism of renal origin; D63.1 Anemia in chronic kidney disease; N18.30 Chronic kidney disease, stage 3 unspecified
CPT/HCPCS: 36415; 80048; 82043; 82306; 82570; 82728; 83540; 83550; 83735; 83970; 84100; 85027

== ENCOUNTER → 2020-10-03 | Outpatient (CLI) | payer MEDICARE ==
[2020-10-03 11:12] LABS: Chol/HDL Ratio 2.84; LDL Cholesterol,Calculated 44.6 mg/dL (0.0-131.0); VLDL Calculation 23.4 mg/dL (5.00-40.00)
== END | disposition home or self-care (01) ==
LOC: LABWHC1 07:22
PROVIDERS: ATTEND Nurse Practitioner Adult Health
DX: E78.5 Hyperlipidemia, unspecified (principal); I47.1 Supraventricular tachycardia
CPT/HCPCS: 36415; 80061; 84443; 84481

== ENCOUNTER → 2020-10-30 | Outpatient (CLI) | payer MEDICARE ==
--- NOTE | 2020-10-31 09:10 | MM ---
Reason for exam: additional evaluation requested from prior study. Last mammogram was performed 10 years and 1 month ago. History: Patient is postmenopausal. Family history of breast cancer in sister at age 62 and breast cancer in maternal aunt. Took hormonal contraceptives for 8 years beginning at age 23. Physical Findings: Nurse Summary: 3cm nodule in the left breast at 4 o'clock (nurse ms). MG 3D Diag Mammo W/Cad SYED Bilateral CC and MLO view(s) were taken. There are scattered fibroglandular densities. Finding #1: There is a 26 mm obscured margin irregular mass in the middle position of the left breast. Finding #2: There is a 3.5cm length pleomorphic, grouped/clustered calcifications in the anterior, middle, central position of the left breast at density. These results were verbally communicated with the patient and result sheet given to the patient on 10/30/20. ASSESSMENT: Incomplete: need additional imaging evaluation, BI-RAD 0 RECOMMENDATION: Ultrasound of the left breast.
--- NOTE | 2020-10-31 09:16 | USB ---
Reason for exam: additional evaluation requested from abnormal screening. History: Patient is postmenopausal. Family history of breast cancer in sister at age 62 and breast cancer in maternal aunt. Took hormonal contraceptives for 8 years beginning at age 23. US Breast Limited LT Left limited breast ultrasound including focal area of concern, retroareolar and axilla demonstrates a 2.2 x 1.6 x 2.7cm irregular, solid, hypoechoic, vascular lesion at 4 o'clock. These results were verbally communicated with the patient and result sheet given to the patient on 10/30/20. ASSESSMENT: Highly suggestive of malignancy, BI-RAD 5 RECOMMENDATION: Ultrasound core biopsy of the left breast. Called Dr. Pollack's office with mammographic findings and has scheduled an appointment for the patient for 11/14/20 at 12:[address] Taylor. Biopsy scheduled for 11/04/20 at 10:30. PRELIMINARY REPORT CALLED AND FAXED TO DR. TAYLOR ON 10/31/20.
== END | disposition home or self-care (01) ==
LOC: RADMAMWWP 13:59
PROVIDERS: ATTEND Internal Medicine
DX: N63.20 Unspecified lump in the left breast, unspecified quadrant (principal); R92.8 Other abnormal and inconclusive findings on diagnostic imaging of breast
CPT/HCPCS: 77066; 76642; G0279; 77062

== ENCOUNTER → 2020-11-04 | Day surgery (SDC) | payer MEDICARE ==
[2020-11-04 08:40] LABS: Partial Thromboplastin Time 24.2 sec (22.0-30.0); Prothrombin Time 10.7 sec (9.0-12.0)
[2020-11-04 09:05] VITALS: RESP 18; TEMP 97.8
[2020-11-04 10:21] VITALS: BP 116/67; PULSE 50
--- NOTE | 2020-11-04 11:28 | USB ---
EXAMINATION TYPE: US biopsy breast VAD LT, MG postbiopsy diagnostic mammo LT wo CAD DATE OF EXAM: 11/04/2020 CLINICAL HISTORY: 75-year-old female palpable mass, R92.8 Abnormal Mammogram. TECHNIQUE: Ultrasound guided core biopsy of the 4:00 left breast. COMPARISON: 10/30/2020 FINDINGS: The procedure of ultrasound guided core biopsy was explained to the patient. Benefits, alternatives, and risks were discussed. An informed consent was then obtained. The patient was placed in supine positioning for imaging and for the procedure. The overlying skin was prepped and draped in usual sterile fashion. Lidocaine was used as anesthetic into the skin followed by lidocaine/epinephrine into the subcutaneous tissue up to area of concern in the 4:00 left breast. Under ultrasound guidance, a 13-gauge vacuum-assisted mammotome Elite biopsy gun device was used to obtain 6 core samples. Following this, a coil clip was left in lesion. The patient tolerated the procedure well without any immediate complication. The patient was kept in the radiology department for short stay after the procedure and then discharged home in stable condition. Post procedure mammogram shows the coil clip at the site of mass and calcifications. IMPRESSION: Successful, uncomplicated ultrasound guided core biopsy of the BI-RADS 5 mass and associated calcifications within the 4:00 left breast. Full pathology results to follow. Pathology Results: Malignant LEFT BREAST, 4:00, ULTRASOUND GUIDED CORE BIOPSY: Invasive moderately differentiated ductal carcinoma (Grade 2) with associated calcifications. See Surgical Pathology Cancer Case Summary. Recommendation Surgical consult of the left breast. KATY
== END ==
LOC: RADUSWWP 07:55
PROVIDERS: ATTEND Surgery
DX: C50.512 Malignant neoplasm of lower-outer quadrant of left female breast (principal); Z17.0 Estrogen receptor positive status [ER+]
CPT/HCPCS: 88305; 85610; 85730; 88342; 88341; 77065; 19083; A4648; J2001

== ENCOUNTER → 2020-11-08 | Outpatient (CLI) | payer MEDICARE ==
[2020-11-08 15:55] VITALS: BP 162/72; PULSE 55; RESP 18; TEMP 97.9
--- NOTE | 2020-11-08 16:48 | P.GSHP ---
History of Present Illness H&P Date: 11/08/20 Chief Complaint: mass left breast [id number]- stage IIA Radha is a 75 year-old white female seen in consultation for Dr. Pollack regarding a lump in her left breast. She states that following identifying the lump which was approximately a month ago she had a bilateral mammogram performed. This was done on 1620. This revealed a 3.5 cm pleomorphic area of grouped calcifications in the left breast. This was followed by an ultrasound of the left breast which revealed a 2.7 cm lesion at the 4 o'clock position. Appropriate biopsy was performed on which was positive for invasive moderately differentiated ductal carcinoma grade 2. This is ER positive [place] negative HER-2 negative. Not fully other lumps masses or nodules in her breast. She has not had any trauma or infection in her breast. She has not had any surgery in her breast. Family history: sister: breast cancer maternal aunt: breast cancer daughter: ? 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 Social History: nicotine: none alcohol: none drugs: none - Constitutional Constitutional: Denies chills, Denies fever - EENT Eyes: denies blurred vision, denies pain Ears: deny: decreased hearing, tinnitus Ears, nose, mouth and throat: Denies headache, Denies sore throat - Breasts Breasts: bilateral: as per HPI - Cardiovascular Comment: [place] 2018, quadruple bypass Cardiovascular: Denies chest pain, Denies shortness of breath - Respiratory Comment: Procedures disease/susceptible to pneumonia - Gastrointestinal Gastrointestinal: Denies abdominal pain, Denies diarrhea, Denies nausea, Denies vomiting - Genitourinary (Female) Genitourinary: Denies dysuria, Denies hematuria - Menstruation Menstruation: Reports postmenopausal - Musculoskeletal Comment: bad hip uses a walker, right hip pain Musculoskeletal: Denies myalgias - Integumentary Comment: at biopsy site itching - Neurological Neurological: Denies numbness, Denies weakness - Psychiatric Psychiatric: Denies anxiety, Denies depression - Endocrine Endocrine: Denies fatigue, Denies weight change - Hematologic/Lymphatic Comment: Coumadin - Allergic/Immunologic Allergic/Immunologic: Reports as per HPI Past Medical History Past Medical History: Atrial Fibrillation, Coronary Artery Disease (CAD), Chest Pain / Angina, Hyperlipidemia, Hypertension, Myocardial Infarction (NV), Pneumonia, Respiratory Disorder Additional Past Medical History / Comment(s): Cardiomyopathy, paroxysmal Afib, bronchitis, gout bilateral great toes, 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 Last Myocardial Infarction Date:: History of Any Multi-Drug Resistant Organisms: None Reported Past Surgical History: Coronary Bypass/CABG Additional Past Surgical History / Comment(s): "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, CABG 4 vessels in 2018, D&C hysteroscopy for endometrial chary ps Past Anesthesia/Blood Transfusion Reactions: No Reported Reaction Additional Past Anesthesia/Blood Transfusion Reaction / Comment(s): past blood transfusion with CABG-no reaction Past Psychological History: No Psychological Hx Reported Additional Psychological History / Comment(s): pt lives alone in own single level home. 6 porch steps. no home care services, no medical equipment. pt doesn't drive. daughter /sister take her places. Pt uses a walker. Smoking Status: Former smoker Past Alcohol Use History: None Reported Additional Past Alcohol Use History / Comment(s): started smoking at age 18(1962) and quit at age 42(1986) smoked 1 ppd. past rare etoh, now none Past Drug Use History: None Reported - Past Family History Mother Family Medical History: Myocardial Infarction (NV) Additional Family Medical History / Comment(s): Mother of a NV at the age of 69yrs. Father Family Medical History: Myocardial Infarction (NV) Additional Family Medical History / Comment(s): Father of a NV at the age of 69 yrs Brother(s) Family Medical History: Neurologic Disorder Sister(s) Family Medical History: Cancer, Myocardial Infarction (NV) Medications and Allergies Home Medications Medication Instructions Recorded Confirmed Type Aspirin 81 mg PO DAILY #30 chew 02/10/18 11/08/20 Rx Spironolactone [Aldactone] 25 mg PO DAILY 07/25/18 11/08/20 History Warfarin [Coumadin] 5 mg PO MOFR 07/25/18 11/08/20 History Alirocumab [Praluent Pen] 75 mg SQ Q14D 01/12/19 11/08/20 History Furosemide [Lasix] 20 mg PO DAILY 01/12/19 11/08/20 History Losartan [Cozaar] 12.5 mg PO HS 01/12/19 11/08/20 History Metoprolol Succinate [Toprol XL] 12.5 mg PO DAILY 01/12/19 11/08/20 History Pravastatin Sodium 80 mg PO HS 01/12/19 11/08/20 History Warfarin [Coumadin] 7.5 mg PO SUTUWETHSA 01/12/19 11/08/20 History allopurinoL [Zyloprim] 200 mg PO HS 01/12/19 11/08/20 History Isosorbide Mononitrate ER [Imdur] 30 mg PO DAILY #90 tab.er.24h 01/13/19 11/08/20 Rx Nitroglycerin Sl Tabs [Nitrostat] 0.4 mg SUBLINGUAL Q5M PRN 01/26/19 11/08/20 History Allergies Allergy/AdvReac Type Severity Reaction Status Date / Time atorvastatin calcium Allergy Swelling Verified 11/08/20 15:51 [From Lipitor] benazepril Allergy irregular Verified 11/08/20 15:51 heart rate amlodipine AdvReac muscle Verified 11/08/20 15:51 cramps Surgical - Exam Vital Signs Temp Pulse Resp BP Pulse Ox 97.9 F 55 L 18 162/72 96 11/08/20 15:52 11/08/20 15:52 11/08/20 15:52 11/08/20 15:52 11/08/20 15:52 BMI 24.7 - General well developed, well nourished, no distress - Eyes normal ocular movement - ENT normal pinna, normal nares - Neck no masses, trachea midline - Respiratory normal expansion, normal respiratory effort, clear to auscultation - Cardiovascular Heart Sounds: normal: S1, S2 - Abdomen Abdomen: soft, bowel sounds - Integumentary normal turgor - Neurologic no disoriented, no combative - Musculoskeletal normal gait - Psychiatric oriented to time, oriented to person, oriented to place, speech is normal, memory intact breast exam: BRA: 40B inspection: Left breast slightly smaller than right breast, bilateral grade 2 ptosis Palpation: Right breast: Multi-positional exam no dominant masses or nodules of concern Right axilla: No adenopathy of concern Left breast: Multi-positional exam approximately 3 x 2 cm mass in the lower outer quadrant area Left axilla: No adenopathy of concern Results Mammogram and ultrasound reviewed with Dr. 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 Presentation of case at tumor board 2. Appointment with medical oncology 3. We have discussed the options of lumpectomy versus mastectomy and the patient is going to consider which she would like to do 4. Clearance from cardiology, pulmonary, and primary care 5. Patient is going to have a defibrillator placed in 2 weeks and I will see her again after that Cc: Dr. Pollack encounter 45 minutes, > 50% of time in planning and counselling
== END | disposition home or self-care (01) ==
LOC: WWCWWP 15:41
PROVIDERS: ATTEND Surgery
DX: Z53.9 Procedure and treatment not carried out, unspecified reason (principal)

== ENCOUNTER → 2020-11-12 | Outpatient (CLI) | payer MEDICARE ==
[2020-11-12 09:06] LABS: HCT 50.1 % (34.0-46.0); HGB 16.9 gm/dL (11.4-16.0); MCH 31.8 pg (25.0-35.0); MCHC 33.7 g/dL (31.0-37.0); MCV 94.4 fL (80.0-100.0); Platelet Count 178 k/uL (150-450); RBC 5.31 m/uL (3.80-5.40); RDW 13.4 % (11.5-15.5); WBC 6.4 k/uL (3.8-10.6)
[2020-11-12 09:52] LABS: Potassium 4.2 mmol/L (3.5-5.1)
== END | disposition home or self-care (01) ==
LOC: LABPAT 07:52
PROVIDERS: ATTEND Internal Medicine Clinical Cardiac Electrophysiology
DX: Z01.818 Encounter for other preprocedural examination (principal); I25.5 Ischemic cardiomyopathy
CPT/HCPCS: 36415; 80051; 82565; 84520; 85027

== ENCOUNTER → 2020-12-06 | Outpatient (CLI) | payer MEDICARE ==
[2020-12-06 09:27] VITALS: BP 114/69; PULSE 66; RESP 16; TEMP 98.2
--- NOTE | 2020-12-06 10:13 | P.PN ---
Subjective Progress Note Date: 12/06/20 Principal diagnosis: left breast stage IIA invasive ductal cancer [id number]- stage IIA Radha is a 75 year-old white female seen in consultation for Dr. Pollack regarding a lump in her left breast. She states that following identifying the lump which was approximately a month ago she had a bilateral mammogram performed. This was done on 1620. This revealed a 3.5 cm pleomorphic area of grouped calcifications in the left breast. This was followed by an ultrasound of the left breast which revealed a 2.7 cm lesion at the 4 o'clock position. Appropriate biopsy was performed on which was positive for invasive moderately differentiated ductal carcinoma grade 2. This is ER positive AR negative HER-2 negative. Not fully other lumps masses or nodules in her breast. She has not had any trauma or infection in her breast. She has not had any surgery in her breast. Her case was presented at tumor board and we discussed possible genetic testing, the patined was given this option and declined. She was also seen by cardiology and they have chosen to wait until after the breast surgery to place the defibrillator. She was seen in consultation from DR. Gomez on 11-19-20. She was recommended to proceed with surgery. Family history: sister: breast cancer maternal aunt: breast cancer daughter: ? 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 Social History: nicotine: none alcohol: none drugs: none - Constitutional Constitutional: Denies chills, Denies fever - EENT Eyes: denies blurred vision, denies pain Ears: deny: decreased hearing, tinnitus Ears, nose, mouth and throat: Denies headache, Denies sore throat - Breasts Breasts: bilateral: as per HPI - Cardiovascular Comment: [place] 2018, quadruple bypass Cardiovascular: Denies chest pain, Denies shortness of breath - Respiratory Comment: Procedures disease/susceptible to pneumonia - Gastrointestinal Gastrointestinal: Denies abdominal pain, Denies diarrhea, Denies nausea, Denies vomiting - Genitourinary (Female) Genitourinary: Denies dysuria, Denies hematuria - Menstruation Menstruation: Reports postmenopausal - Musculoskeletal Comment: bad hip uses a walker, right hip pain Musculoskeletal: Denies myalgias - Integumentary Comment: at biopsy site itching - Neurological Neurological: Denies numbness, Denies weakness - Psychiatric Psychiatric: Denies anxiety, Denies depression - Endocrine Endocrine: Denies fatigue, Denies weight change - Hematologic/Lymphatic Comment: Coumadin - Allergic/Immunologic Allergic/Immunologic: Reports as per HPI Objective - Vital Signs Vital signs: Vital Signs Temp 98.2 F 12/06/20 09:25 Pulse 66 12/06/20 09:25 Resp 16 12/06/20 09:25 BP 114/69 12/06/20 09:25 Pulse Ox 100 12/06/20 09:25 Intake & Output 12/05/20 12/06/20 12/06/20 18:59 06:59 18:59 Weight 61.235 kg - Exam BMI 26.4 - Constitutional General appearance: Present: average body habitus - EENT Eyes: Present: EOMI ENT: Present: hearing grossly normal - Neck Neck: Present: normal ROM - Respiratory Respiratory: bilateral: CTA - Cardiovascular Heart sounds: normal: S1, S2 - Gastrointestinal General gastrointestinal: Present: soft - Integumentary Integumentary: Present: normal turgor - Musculoskeletal Musculoskeletal Comment(s): in a wheel chair at this time secondary to gout - Psychiatric Psychiatric: Present: A&O x's 3 - Additional findings Additional findings: breast exam: Block: 40 B Inspection: Left breast slightly smaller than right breast, bilateral grade 2 ptosis Palpation: Right breast: Multi-positional exam no dominant masses or nodules of concern Right axilla: No adenopathy of concern Left breast: Multi-positional exam proximally 3 x 2 cm mass in the lower outer quadrant area Left axilla: No adenopathy of concern Assessment and Plan Assessment: Impression: Hypertension High cholesterol Gout Brain lesion optical nerve Lung disease colon. 3 years disease History of cardiac disease status post quadruple bypass Left breast invasive ductal carcinoma approximately 3 x 2 cm in size Patient's case presented at tumor Board patient declined genetic testing Patient seen by Dr. Gomez After discussion with the patient and her daughter the patient would like a lumpectomy if possible. I've discussed different incision approaches including possible mastopexy. The patient understands the secondary to the size of her breast and the size of the tumor that there will be asymmetry between the breast after the lumpectomy. Plan: 1. [place] node injection 2. [place] node biopsy possible axillary node dissection 3. Needle localization bracketing of lesion, lumpectomy 4. Possible onco-plastic tissue transfer 5. Possible mastopexy 6. Medical clearance from Dr. Pollack 7. Medical clearance from Dr. Park 8. Medical clearance from cardiology, We discussed she will need to stop the Coumadin proximally 5 days prior to procedure, PT on the AM of the surgery Risks and benefits of procedure discussed with the patient and her daughter. Risks include but are not limited to bleeding, infection, reaction to the anesthetic. They understand that if the margins were deposited she would need to have reexcision. They also understand the risks of sentinel node biopsy and axillary node dissection. They understand a sentinel node were to be positive on permanent section may require further surgery. Risk from axillary node dissection include but are not limited to bleeding, infection, reaction to the anesthetic. Additionally decreased sensation to the left upper arm lymphedema or discussed. Injury to the thoracodorsal and long thoracic nerves with running scapular discussed. The patient and her daughter understand and wish to proceed. Options which would include mastectomy plus or minus reconstruction versus lumpectomy are discussed and the patient would like to have a lumpectomy performed. Time with Patient: Greater than 30
== END | disposition home or self-care (01) ==
LOC: WWCWWP 08:43
PROVIDERS: ATTEND Surgery
DX: Z53.9 Procedure and treatment not carried out, unspecified reason (principal)

== ENCOUNTER 2020-12-31 10:26 | Day surgery (SDC) | payer MEDICARE ==
[2020-12-25 11:08] VITALS: BMI 26.4
[~2020-12-31 10:26] MED LIST: DEXAMETHASONE SOD PHOSPHATE 4 MG/ML 1 ML VIAL IV ONE; HEPARIN SODIUM,PORCINE 5,000 UNIT/ML 1 ML VIAL SQ PRN; LACTATED RINGERS 1,000 ML IV SCH; LIDOCAINE 1% (10MG/ML) FOR IV START INTRADERMA PRN; ONDANSETRON 4 MG/2 ML VIAL IVP ONE; Pre Op ABX Message 1 EACH MISC MISCELLANE ONE
[2020-12-31] MEDS ORDERED: ALPRAZolam 0.25 MG TAB ONE (11:12)
[2020-12-31 11:40] LABS: INR 1.1 (<1.2); Partial Thromboplastin Time 25.5 sec (22.0-30.0); Prothrombin Time 11.5 sec (9.0-12.0)
[2020-12-31] MEDS ORDERED: LIDOCAINE 1% INJ 10MG/ML (20 ML MDV) SQ ONE (11:44)
--- NOTE | 2020-12-31 12:24 | NM ---
EXAMINATION TYPE: NM sentinel node injection DATE OF EXAM: 12/31/2020 COMPARISON: NONE HISTORY: Left-sided breast cancer. TECHNIQUE AND FINDINGS: The procedure of sentinel lymph node injection was explained to the patient. The benefits, alternatives, and risks were discussed. An informed consent was then obtained. Overlying skin is cleaned with sterile alcohol. Following this, 511 uCi Tc99m Tilmanocept was inject ed in the upper outer aspect of the left nipple intradermally. The patient tolerated the procedure well without any immediate complication. The patient was kept in the radiology department for short stay after the procedure and then taken to surgery for surgical p rocedure what is presumed intraoperative gamma probe will be used for sentinel lymph node detection. IMPRESSION: Left breast radiotracer injection for sentinel node localization as above.
[2020-12-31] MEDS ORDERED: SUCCINYLCHOLINE CHLORIDE 100 MG/5 ML SYR IV ONE (14:06)
[2020-12-31] MEDS ORDERED: MIDAZOLAM 2 MG/2 ML VIAL ONE (14:06)
[2020-12-31] MEDS ORDERED: PROPOFOL 10 MG/ML 20 ML VIAL IV ONE (14:06)
[2020-12-31] MEDS ORDERED: LIDOCAINE 1% INJ 10MG/ML (20 ML MDV) ONE (14:06)
[2020-12-31] MEDS ORDERED: fentaNYL (PF) 50 MCG/ML 2 ML AMP ONE (14:06)
[2020-12-31] MEDS ORDERED: GLYCOPYRROLATE 0.2 MG/ML 2 ML VIAL ONE (14:06)
--- NOTE | 2020-12-31 16:15 | P.OP ---
Date of Procedure: 12/31/20 Preoperative Diagnosis: Left breast invasive ductal carcinoma Postoperative Diagnosis: Same Procedure(s) Performed: [place] node biopsy, needle localization lumpectomy, onco- plastic tissue transfer 40 cm Anesthesia: HOLLYA Surgeon: Christine Taylor Estimated Blood Loss (ml): 10 IV fluids (ml): 400 Pathology: other (Breast tissue, sentinel lymph node) Condition: stable Disposition: same day Indications for Procedure: Invasive ductal carcinoma left breast Operative Findings: Fibrofatty breast tissue Description of Procedure: Chief is a 75-year-old white female who was diagnosed with a left breast invasive ductal carcinoma. She wished for a lumpectomy. She refers to the radiology department with a lesion of concern was bracketed. A sentinel lymph node injection was performed. She then came to the operating room and following induction of anesthesia interrogation of the axilla revealed radioactivity in the axilla. The left breast was then prepped and draped in a sterile fashion as well as the axilla. The axilla was approached initially. Using the neoprobe the area of greatest radioactivity was identified. An incision was made and carried into the deep axillary tissues. In the deep axillary tissues a radioactive lymph node was identified. The 10 second count was 1645. The background count was 12. This deep lymph node was removed using the Harmonic scalpel. The axilla was well irrigated. The deep tissues were brought together using 3-0 Vicryl suture. The skin was closed using a 4-0 Monocryl. Surgical glue was applied. The area of the breast was approached. An incision was made between the 2 needles. The superior and inferior skin flaps were developed and the needles were brought into the wound. Wide excision was performed. The posterior dissection was onto the chest wall. The anterior dissection took skin. After the lesion was removed it was painted for orientation and sent to radiology. The area of concern which was to be removed was identified. Additional margins were obtained superiorly, inferiorly, medially, and laterally. After we were assured that hemostasis was attained titanium clips were placed. The lesion itself was 7 cm x 4 cm. The inferior pillar of tissue was mobilized 5 cm x 2.5 cm. A total area of mobalization of 40 .5 cm squared was mobilized. These tissues were brought together using 3-0 Vicryl suture. The superior pillar was not mobilized as it was the tissue directly under the nipple areolar complex. Following this the subcutaneous tissues were closed using 3-0 Vicryl suture. The skin was closed using 4-0 Monocryl. The skin was further reinforced with a 4-0 nylon suture. The patient tolerated procedure in stable condition. All instrument and sponge counts were correct at the end of the case.
--- NOTE | 2020-12-31 16:17 | P.DS ---
Providers Attending physician: Christine Taylor Primary care physician: Ranjeet Melgar Plan - Discharge Summary New Discharge Prescriptions: No Action Aspirin 81 mg PO DAILY #30 chew Warfarin [Coumadin] 5 mg PO FR Spironolactone [Aldactone] 25 mg PO DAILY allopurinoL [Zyloprim] 100 mg PO HS Warfarin [Coumadin] 7.5 mg PO SUMOTUWETHSA Pravastatin Sodium 80 mg PO HS Metoprolol Succinate [Toprol XL] 12.5 mg PO DAILY Losartan [Cozaar] 12.5 mg PO HS Furosemide [Lasix] 20 mg PO DAILY Isosorbide Mononitrate ER [Imdur] 30 mg PO DAILY #90 tab.er.24h Nitroglycerin Sl Tabs [Nitrostat] 0.4 mg SUBLINGUAL Q5M PRN PRN Reason: Chest Pain Healthy Eyes 1 tab PO DAILY Discharge Medication List Aspirin 81 mg PO DAILY #30 chew 02/10/18 [Rx] Spironolactone [Aldactone] 25 mg PO DAILY 07/25/18 [History] Warfarin [Coumadin] 5 mg PO FR 07/25/18 [History] Furosemide [Lasix] 20 mg PO DAILY 01/12/19 [History] Losartan [Cozaar] 12.5 mg PO HS 01/12/19 [History] Metoprolol Succinate [Toprol XL] 12.5 mg PO DAILY 01/12/19 [History] Pravastatin Sodium 80 mg PO HS 01/12/19 [History] Warfarin [Coumadin] 7.5 mg PO SUMOTUWETHSA 01/12/19 [History] allopurinoL [Zyloprim] 100 mg PO HS 01/12/19 [History] Isosorbide Mononitrate ER [Imdur] 30 mg PO DAILY #90 tab.er.24h 01/13/19 [Rx] Nitroglycerin Sl Tabs [Nitrostat] 0.4 mg SUBLINGUAL Q5M PRN 01/26/19 [History] Healthy Eyes 1 tab PO DAILY 12/25/20 [History] Follow up Appointment(s)/Referral(s): Christine Taylor MD [STAFF PHYSICIAN] - 1 Week Activity/Diet/Wound Care/Special Instructions: do not drive wear ac wrap at all times may shower at 48 hours Discharge Disposition: HOME SELF-CARE
[2020-12-31 16:34] VITALS: TEMP 96.8
[2020-12-31 16:49] VITALS: RESP 16
[2020-12-31] MEDS ORDERED: HYDROcodone/APAP 5-325MG 1 EACH TAB PO ONE (17:25)
[2020-12-31] MEDS ORDERED: HYDROcodone/APAP 5-325MG 1 EACH TAB ONE (17:27)
[2020-12-31 17:50] VITALS: BP 138/63; PULSE 66
--- NOTE | 2020-12-31 18:40 | MM ---
EXAMINATION TYPE: MG pre op needle loc LT, MG surgical specimen LT DATE OF EXAM: 12/31/2020 COMPARISON: Prior mammogram and ultrasound November 04, 2020 CLINICAL HISTORY: Invasive ductal carcinoma and biopsy November 04 TECHNIQUE: Needle localization with wire placement and surgical excision of area of concern in the left breast. FINDINGS: The procedure of needle localization with wire placement and than surgical excision was explained to the patient. Benefits, alternatives, and risks were discussed. An informed consent was then obtained. The shortest pathway for procedure was chosen. Shortest pathway was inferior approach. Bracketed procedure requested by surgeon. The overlying skin was prepped and draped in usual sterile fashion. Lidocaine is used as anesthetic into the skin and subcutaneous tissue up to the level of area of concern. There are 2 5 cm needles used. They are placed via a inferior approach under mammographic guidance. Subsequent 90 degrees mammogram show the needles to be in satisfactory position relative to the targeted area anterior and posterior margin of the clustered or group of calcifications. At this point, wire was placed and the needle was withdrawn. The wire was fixed to patient's skin. Images were marked for surgeon. The patient tolerated the procedure well without any immediate complication. The patient was kept in the radiology department for short stay after the procedure and then taken to surgery for surgical excision. Bracketed mass with calcifications and clip and wire are identified in specimen mammogram. The patient was kept in hospital for short stay after the procedure and then discharged home in stable condition. IMPRESSION: Successful, uncomplicated needle localization with wire placement and surgical excision of known neoplasm in the left breast, full pathology results to follow. Pathology Results: Malignant A. SENTINEL LYMPH NODE #1, EXCISION: One sentinel lymph node, negative for metastatic carcinoma (0/1). CK7 and COLLINS stains with appropriate controls are negative for evidence of metastatic carcinoma. B. LYMPH NODES, LEFT AXILLA, EXCISION: Four axillary lymph nodes negative for metastatic carcinoma (0/4). C. LEFT BREAST, LUMPECTOMY: Invasive high grade ductal carcinoma, Grade 3, with associated high grade DCIS with comedonecrosis (see Surgical Pathology Cancer Case Summary and Comment). Margins negative for invasive and in situ carcinoma. Closest margin to invasive carcinoma: Close to and less than 1 mm from anterior margin. Closest margin to DCIS: Close to and less than 1 mm from anterior margin. Positive for lymphovascular invasion. D. NEW SUPERIOR MARGIN: Benign breast tissue with focal atypical ductal hyperplasia, focal moderate to florid usual ductal hyperplasia and focal fibrocystic change. Margin negative for in situ or invasive carcinoma. E. NEW INFERIOR MARGIN: Benign breast tissue. Margin negative for in situ or invasive carcinoma. F. NEW LATERAL MARGIN: Benign breast tissue with fibrocystic change and focal usual ductal hyperplasia. Margin negative for in situ or invasive carcinoma. G. NEW MEDIAL MARGIN: Benign breast tissue with focal usual ductal hyperplasia. Margin negative for in situ or invasive carcinoma. H. FINAL ANTERIOR MARGIN: Benign skin with fibrosis, focal chronic inflammation and focal erosion with cautery artifact. Negative for in situ or invasive carcinoma. Recommendation Surgical consult of the left breast. Treatment and follow up. [facility]
== END 2020-12-31 18:12 | disposition home or self-care (01) ==
LOC: OR 10:26
PROVIDERS: ATTEND Surgery
DX: Z80.3 Family history of malignant neoplasm of breast (principal); Z80.8 Family history of malignant neoplasm of other organs or systems; Z95.1 Presence of aortocoronary bypass graft; I11.9 Hypertensive heart disease without heart failure; I25.10 Atherosclerotic heart disease of native coronary artery without angina pectoris; Z98.890 Other specified postprocedural states; E78.00 Pure hypercholesterolemia, unspecified; M10.9 Gout, unspecified; G58.8 Other specified mononeuropathies; J67.2 Bird fancier's lung; J43.9 Emphysema, unspecified; J67.9 Hypersensitivity pneumonitis due to unspecified organic dust; Z82.69 Family history of other diseases of the musculoskeletal system and connective tissue; Z79.01 Long term (current) use of anticoagulants; Z79.82 Long term (current) use of aspirin; Z79.899 Other long term (current) drug therapy; Z88.8 Allergy status to other drugs, medicaments and biological substances
CPT/HCPCS: 19301; 38525; 14301; 85610; 85730; 88342; 88307; 88341; 76098; 38792; A9520; J2250; J1644; J1100; J2405; J2001; J3010; J0330; J2704

== ENCOUNTER → 2021-01-10 | Outpatient (CLI) | payer MEDICARE ==
[2021-01-10 13:47] VITALS: BP 128/68; PULSE 90; RESP 18; TEMP 98
--- NOTE | 2021-01-10 14:16 | P.PN ---
Progress Note - Text Progress Note Date: 01/10/21 Radha is a 75-year-old white female status post left breast lumpectomy and sentinel node biopsy on 3921. The tumor was 3 cm in size. All margins are negative. The lymph nodes are all negative. Patient has no complaints following the surgery. Physical examination: Lungs: Clear Heart: Regular rate and rhythm Incisions: Clean and dry Impression: 1. Patient status post left breast lumpectomy and sentinel node biopsy pathology as above Plan: 1. Remove sutures 2. Follow-up medical oncology 3. Follow-up radiation oncology 4. Follow-up here in 4 months CC: Dr. Pollack
== END ==
LOC: WWCWWP 13:35
PROVIDERS: ATTEND Surgery
DX: Z98.890 Other specified postprocedural states (principal); Z85.3 Personal history of malignant neoplasm of breast; Z51.0 Encounter for antineoplastic radiation therapy

== ENCOUNTER → 2021-02-10 | Outpatient (CLI) | payer MEDICARE ==
[2021-02-10 09:52] LABS: Appearance,Urine Clear (Clear); Bilirubin,Urine Negative (Negative); Blood,Urine Negative (Negative); Color,Urine Light Yellow; Glucose,Urine (UA) Negative (Negative); Ketones,Urine Negative (Negative); Leukocyte Esterase,Urine Negative (Negative); Nitrite,Urine Negative (Negative); PH, Urine 6.5 (5.0-8.0); Protein,Urine Negative (Negative); Specific Gravity,Urine 1.002 (1.001-1.035); Urobilinogen,Urine <2.0 mg/dL (<2.0)
[2021-02-10 15:11] LABS: HCT 44.6 % (37.2-46.3); HGB 14.3 g/dL (12.0-15.0); MCH 30.8 pg (27.0-32.0); MCHC 32.1 g/dL (32.0-37.0); MCV 95.9 fL (80.0-97.0); Mean Platelet Volume 9.8 fL (9.5-12.2); Platelet Count 197 X 10*3/uL (140-440); RBC 4.65 X 10*6/uL (4.10-5.20); RDW 13.7 % (11.5-14.5); WBC 5.76 X 10*3/uL (4.50-10.00)
[2021-02-10 15:56] LABS: % Iron Saturation 31.77 (12.00-45.00); African American GFR (CKD) 73.5 (60.0-200.0); Albumin 4.5 g/dL (3.80-4.90); Albumin/Globulin Ratio 2.25 (1.60-3.17); Anion Gap 8.7 mmol/L (4.00-12.00); BUN/Creat Ratio 37.78 Ratio (12.00-20.00); Calcium 9.8 mg/dL (8.7-10.3); Carbon Dioxide 25.3 mmol/L (21.6-31.8); Magnesium 2.1 mg/dL (1.5-2.4); Non-African American GFR(CKD) 63.4 (60.0-200.0); Potassium 4.7 mmol/L (3.5-5.5); Total Bilirubin 0.6 mg/dL (0.2-1.2); Total Protein 6.5 g/dL (6.2-8.2); Uric Acid 4.5 mg/dL (2.9-7.7)
[2021-02-10 15:59] LABS: Ferritin 145.1 ng/mL (10.0-291.0)
== END | disposition home or self-care (01) ==
LOC: LABWHC1 08:30
PROVIDERS: ATTEND Internal Medicine
DX: N18.30 Chronic kidney disease, stage 3 unspecified (principal)
CPT/HCPCS: 36415; 80053; 81003; 82306; 82728; 83540; 83550; 83735; 84550; 85027

== ENCOUNTER → 2021-05-08 | Outpatient (CLI) | payer MEDICARE ==
[2021-05-08 08:35] LABS: HCT 43.8 % (34.0-46.0); HGB 15.1 gm/dL (11.4-16.0); MCH 31.7 pg (25.0-35.0); MCHC 34.5 g/dL (31.0-37.0); MCV 91.9 fL (80.0-100.0); Mean Platelet Volume 6.6; Platelet Count 180 k/uL (150-450); RBC 4.76 m/uL (3.80-5.40); RDW 13.3 % (11.5-15.5); WBC 5.4 k/uL (3.8-10.6)
== END | disposition home or self-care (01) ==
LOC: LABPAT 07:21
PROVIDERS: ATTEND Internal Medicine Clinical Cardiac Electrophysiology
DX: Z01.812 Encounter for preprocedural laboratory examination (principal); I25.5 Ischemic cardiomyopathy
CPT/HCPCS: 36415; 80051; 82565; 84520; 85027

== ENCOUNTER → 2021-05-15 | Outpatient (CLI) | payer MEDICARE ==
[2021-05-15 15:30] VITALS: BP 144/79; PULSE 54; RESP 18; TEMP 98.2
--- NOTE | 2021-05-15 15:42 | P.PN ---
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 The tumor was 3 cm in size. All margins were negative. All lymph nodes were negative. Following the surgery she completed a course of adjuvant radiation therapy. This was completed on 5620. The patient did not have any chemotherapy she is on anestrazole. She is tolerating this without difficulty. She has a history of cardiac disease with a low ejection fraction and has a defibrillator scheduled for placement next week. The patient does not show any new lumps past or nodules of concern in either breast. She is not complaining of breast pain. She is not complaining of nipple discharge. She was seen by radiation oncology on 7820 and her note from Dr. Harris is reviewed. Family history: sister: breast cancer maternal aunt: breast cancer daughter: ? 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 Social History: nicotine: none alcohol: none drugs: none - Constitutional Constitutional: Denies chills, Denies fever - EENT Eyes: denies blurred vision, denies pain Ears: deny: decreased hearing, tinnitus Ears, nose, mouth and throat: Denies headache, Denies sore throat - Breasts Breasts: bilateral: as per HPI - Cardiovascular Comment: [place] 2018, quadruple bypass Cardiovascular: Denies chest pain, Denies shortness of breath - Respiratory Comment: Procedures disease/susceptible to pneumonia - Gastrointestinal Gastrointestinal: Denies abdominal pain, Denies diarrhea, Denies nausea, Denies vomiting - Genitourinary (Female) Genitourinary: Denies dysuria, Denies hematuria - Menstruation Menstruation: Reports postmenopausal - Musculoskeletal Comment: bad hip uses a walker, right hip pain Musculoskeletal: Denies myalgias - Integumentary Comment: at biopsy site itching - Neurological Neurological: Denies numbness, Denies weakness - Psychiatric Psychiatric: Denies anxiety, Denies depression - Endocrine Endocrine: Denies fatigue, Denies weight change - Hematologic/Lymphatic Comment: Coumadin - Allergic/Immunologic Allergic/Immunologic: Reports as per HPI Objective - Vital Signs Vital signs: Vital Signs Temp 98.2 F 05/15/21 15:26 Pulse 54 L 05/15/21 15:26 Resp 18 05/15/21 15:26 BP 144/79 05/15/21 15:26 Pulse Ox 99 05/15/21 15:26 Intake & Output 05/14/21 05/15/21 05/15/21 18:59 06:59 18:59 Weight 64.41 kg - Exam BMI 27.7 - Constitutional General appearance: Present: average body habitus, cooperative - EENT Eyes: Present: EOMI ENT: Present: hearing grossly normal - Neck Neck: Present: normal ROM - Respiratory Respiratory: bilateral: CTA - Cardiovascular Rhythm: regular Heart sounds: normal: S1, S2 - Gastrointestinal General gastrointestinal: Present: soft - Integumentary Integumentary: Present: normal turgor - Musculoskeletal Musculoskeletal: Present: gait normal - Psychiatric Psychiatric: Present: A&O x's 3, appropriate affect, intact judgment & insight - Additional findings Additional findings: Breast Exam: BRA: large sports bra inspection: The slightly larger than left breast/radiation and surgical changes noted in left breast; grade 3 ptosis bilateral Palpation: Right breast: Multi-positional exam fibrocystic changes no dominant masses or nodules of concern Right axilla: No adenopathy of concern Left breast: Multi-positional exam fibrocystic changes, postsurgical and radiation changes, no dominant masses or nodules of concern Left axilla: No adenopathy of concern Assessment and Plan Assessment: Impression: HTN high cholesterol gout 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 Repeat bilateral mammogram in October 2021 with physician exam at that time 2. Follow-up for physician exam in 4 months Cc: Dr. Pollack
== END ==
LOC: WWCWWP 14:57
PROVIDERS: ATTEND Surgery
DX: Z08 Encounter for follow-up examination after completed treatment for malignant neoplasm (principal); I10 Essential (primary) hypertension; E78.00 Pure hypercholesterolemia, unspecified; M10.9 Gout, unspecified; G93.89 Other specified disorders of brain; J67.2 Bird fancier's lung; Z85.3 Personal history of malignant neoplasm of breast; Z98.890 Other specified postprocedural states; Z92.3 Personal history of irradiation; Z88.8 Allergy status to other drugs, medicaments and biological substances

== ENCOUNTER → 2021-05-19 | Day surgery (SDC) | payer MEDICARE ==
[2021-05-15 11:58] VITALS: BMI 27.3
[~2021-05-19] MED LIST changes: +ACETAMINOPHEN IV (For NPO) 1,000 MG in EMPTY BAG 1 BAG IVPB ONE; +ACETAMINOPHEN TAB 325 MG TAB PO PRN; -DEXAMETHASONE SOD PHOSPHATE 4 MG/ML 1 ML VIAL IV ONE; -HEPARIN SODIUM,PORCINE 5,000 UNIT/ML 1 ML VIAL SQ PRN; +IBUPROFEN 800 MG TAB PO STA; +IOPAMIDOL-370 50ML BTL INJ ONE; +LIDOCAINE 1% INJ 10MG/ML (20 ML MDV) ONE; +LIDOCAINE 1% INJ 10MG/ML (20 ML MDV) SQ ONE; +MIDAZOLAM 2 MG/2 ML VIAL ONE; -ONDANSETRON 4 MG/2 ML VIAL IVP ONE; +PROPOFOL 10 MG/ML 20 ML VIAL IV ONE; -Pre Op ABX Message 1 EACH MISC MISCELLANE ONE; +SODIUM CHLORIDE 0.9% 1,000 ML IV SCH; +ceFAZolin 1,000 MG in SODIUM CHLORIDE 0.9% IRRIGATIO 250 ML IRRIGATION ONE; +diphenhydrAMINE 50 MG/ML 1 ML VIAL ONE; +fentaNYL (PF) 50 MCG/ML 2 ML AMP ONE
[2021-05-19 10:40] VITALS: RESP 16; TEMP 98.7
[2021-05-19 11:04] LABS: INR 1.9 (<1.2); Prothrombin Time 18.3 sec (9.0-12.0)
--- NOTE | 2021-05-19 13:30 | P.EPPROC ---
- EP Procedure Note Electrophysiology Procedure Note: Left upper extremity venogram Since cc IV dye injected and of the left arm Patent axillary subclavian and innominate venous system Plan line proceed with dual-chamber ICD for severe ischemic adenopathy status post coronary artery bypass grafting, on medical treatment Sick Sinus Syndrome Dual-chamber ICD for primary prevention of sudden cardiac and management of Sick Sinus Syndrome
--- NOTE | 2021-05-19 13:35 | P.PRLE ---
RE: Radha Cutler Dear Dr. Ranjeet Garcia underwent successful dual-chamber ICD implantation for primary prevention of sudden cardiac and Sick Sinus Syndrome. She will continue current medications and follow with you as before Thank you for entrusting me with the care of the patient Warm regards Sincerely Sudeep Hays
--- NOTE | 2021-05-19 13:35 | P.HPCAR ---
History of Present Illness Diagnosis CAD, status post CABG, old AL Ischemic cardio myopathy Left ventricular ejection fraction remains at 30% Sinus mechanism with IVCD average heart rates in the 50s chronotropic incompetence Ventricular couplets and triplets Runs of atrial tachycardia Procedure performed Successful dual-chamber ICD implant, [employer] DFT at or below 10 J Physical Exam Vitals: Vital Signs Temp Pulse Resp BP Pulse Ox 05/19/21 10:39 98.7 F 59 L 16 149/70 94 L Intake and Output 05/18/21 05/19/21 05/19/21 22:59 06:59 14:59 Intake Total 50 Balance 50 Intake: IV 50 Other: Weight 64.6 kg Past Medical History Past Medical History: Atrial Fibrillation, Coronary Artery Disease (CAD), Cancer, Hyperlipidemia, Hypertension, Myocardial Infarction (AL), Pneumonia, Renal Disease, Respiratory Disorder Additional Past Medical History / Comment(s): See Dr Hays's H&P, gout, history of calcified tumor on the left optical nerve, pigeon breeders disease, left breast cancer, radiation, last 03/04/21 Last Myocardial Infarction Date:: History of Any Multi-Drug Resistant Organisms: None Reported Past Surgical History: Breast Surgery, Coronary Bypass/CABG, Heart Catheterization Additional Past Surgical History / Comment(s): "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, CABG 4 vessels in 2017, D&C hysteroscopy for endometrial polyps, left breast biopsy, left lumpectomy 12/31/20 Past Anesthesia/Blood Transfusion Reactions: Motion Sickness Additional Past Anesthesia/Blood Transfusion Reaction / Comment(s): past blood transfusion with CABG-no reaction Past Psychological History: No Psychological Hx Reported Additional Psychological History / Comment(s): . Smoking Status: Former smoker Past Alcohol Use History: None Reported Additional Past Alcohol Use History / Comment(s): started smoking at age 18(1962) and quit at age 42(1986) smoked 1 ppd. Past Drug Use History: None Reported - Past Family History Mother Family Medical History: Myocardial Infarction (AL) Additional Family Medical History / Comment(s): Mother of a AL at the age of 69yrs. Father Family Medical History: Myocardial Infarction (AL) Additional Family Medical History / Comment(s): Father of a AL at the age of 69 yrs Brother(s) Family Medical History: Neurologic Disorder Sister(s) Family Medical History: Cancer Additional Family Medical History / Comment(s): breast cancer Physical Examination Vital Signs Temp Pulse Resp BP Pulse Ox 05/19/21 10:39 98.7 F 59 L 16 149/70 94 L Intake and Output 05/18/21 05/19/21 05/19/21 22:59 06:59 14:59 Intake Total 50 Balance 50 Intake: IV 50 Other: Weight 64.6 kg Results Coagulation 05/19/21 Range/Units 10:27 PT 18.3 H (9.0-12.0) sec Current Medications Generic Name Dose Route Start Last Admin Trade Name Freq PRN Reason Stop Dose Admin Acetaminophen 650 mg 05/19/21 13:31 Acetaminophen Tab 325 Mg Tab PO 06/18/21 13:32 Q6HR PRN Mild Pain Lactated Ringer's 1,000 mls @ 20 mls/hr 05/19/21 05:50 Lactated Ringers IV 06/18/21 05:51 .Q24H ERIN Cefazolin Sodium 2 gm/ Sodium 50 mls @ 100 mls/hr 05/19/21 16:30 Chloride IVPB 05/19/21 16:59 Q6HR ERIN Acetaminophen 1,000 mg/ IV 100 mls @ 400 mls/hr 05/19/21 13:31 Solution IVPB 05/19/21 13:45 ONCE ONE Lidocaine HCl 0.1 ml 05/19/21 05:50 Lidocaine 1% (10mg/Ml) For Iv Start INTRADERMA 06/18/21 05:51 PER PROTOCOL PRN IV Start Sodium Chloride 10 ml 05/19/21 21:00 Sodium Chloride 0.9% Flush 10 Ml Syringe IV 06/18/21 21:01 Q12HR ERIN Intake and Output 05/18/21 05/19/21 05/19/21 22:59 06:59 14:59 Intake Total 50 Balance 50 Intake: IV 50 Other: Weight 64.6 kg Patient Weight 05/20/21 06:59 Weight 64.6 kg
--- NOTE | 2021-05-19 14:24 | XR ---
EXAMINATION TYPE: XR chest 1V portable DATE OF EXAM: 05/19/2021 COMPARISON: 01/12/2019 HISTORY: Lead placement check TECHNIQUE: Single frontal view of the chest is obtained. FINDINGS: There is no focal air space opacity, pleural effusion diffuse osteopenia. Arthropathy of t he shoulders. Postoperative change. Cardiac device seen. Linear changes involving the left lung most typical scar or atelectasis., or pneumothorax seen. The cardiac silhouette size is within normal ely its. The osseous structures are intact. Linear changes involving the left lung most typical scar or atelectasis. Diffuse osteopenia and arthropathy of the shoulders. IMPRESSION: 1. Scar or linear atelectasis involving the left perihilar region and lower lobe.
[2021-05-19 19:12] VITALS: BP 123/57; PULSE 50
--- NOTE | 2021-05-19 19:17 | CE ---
CARDIAC ELECTROPHYSIOLOGY REPORT Radha Cutler is a 75-year-old female with ischemic cardiomyopathy with ejection fraction 30%, status post revascularization on guideline-directed medical treatment whose ejection fraction has not improved beyond 30%. She has class 2 heart failure symptoms, sick sinus syndrome, chronotropic incompetence, PVCs, ventricular couplets and triplets and nonsustained atrial tachycardia. She was brought in for a dual-chamber ICD implantation for primary prevention of sudden cardiac and management of sick sinus syndrome. Patient is brought to the EP lab in a fasting state. Written informed consent was obtained prior to the procedure. The left shoulder area was prepped and draped as per protocol. 1% lidocaine was used for local anesthesia. A 4 cm incision was made parallel to the deltopectoral groove, about 1.5 cm medial and carried down to the level of the pectoralis muscle. A subfascial pocket was made. Hemostasis was assured. The left axillary vein was accessed at 2 separate points under fluoroscopy. Via appropriately-sized introducer sheaths, 2 leads were positioned in the right heart. The atrial lead was a [employer] model #2088TC, serial #[id number]. The P waves were 2.8 mV, pacing impedance 640 ohms, pacing threshold 0.75 V at 0.5 milliseconds, 10 V test negative. The ICD lead was a single coil [employer], model #[id number], 58 cm in length and serial #[id number]. This was positioned in the RV apex and screwed in. 10 V test negative. Pacing impedance 580 ohms, R-waves greater than 12 mV and threshold 0.5 V at 0.5 milliseconds. Both leads were secured to the underlying pectoralis fascia. The leads were connected to the generator ([employer] ( ) DR, model #[id number], serial #[id number]. The leads and the generator were then placed in subfascial pocket. The wound was closed in 3 layers and dressed per protocol. DFT testing under anesthesia: ( ) protocol was used to induce ventricular fibrillation. This was adequately and appropriately detected lead sensitivity and successfully internally defibrillated with a 10-joule shock. The charge time was 1.8 seconds, shock impedance 69 ohms. No post shock noise. The device was then programmed to DDDR with long AV delay, VIP mode to avoid RV pacing. ( ) programming with appropriate antitachycardia pacing cardioversion defibrillation programmed. RESULTS: 1. Successful dual-chamber ICD implantation for primary prevention of sudden cardiac and management of sick sinus syndrome. 2. DFT at or below 10 joules. MMCHANNINGL / IJN: [id number] /
== END ==
LOC: CATHEP 09:49
PROVIDERS: ATTEND Internal Medicine Clinical Cardiac Electrophysiology
DX: I25.5 Ischemic cardiomyopathy (principal); I49.9 Cardiac arrhythmia, unspecified; E78.5 Hyperlipidemia, unspecified; I25.10 Atherosclerotic heart disease of native coronary artery without angina pectoris; I25.2 Old myocardial infarction; I48.91 Unspecified atrial fibrillation; I12.9 Hypertensive chronic kidney disease with stage 1 through stage 4 chronic kidney disease, or unspecified chronic kidney disease; I50.9 Heart failure, unspecified; I49.5 Sick sinus syndrome; N18.9 Chronic kidney disease, unspecified; M10.9 Gout, unspecified; Z95.810 Presence of automatic (implantable) cardiac defibrillator; Z80.3 Family history of malignant neoplasm of breast; Z82.49 Family history of ischemic heart disease and other diseases of the circulatory system; Z85.3 Personal history of malignant neoplasm of breast; Z87.891 Personal history of nicotine dependence; Z95.1 Presence of aortocoronary bypass graft
CPT/HCPCS: 93641; 33249; 85610; 71045; C1769 ×2; C1721; C1892; C1898; C1777; J2250; J1200; J0690 ×2; J2001; J3010; J0131; J2704; Q9967

== ENCOUNTER → 2021-06-02 | Outpatient (CLI) | payer MEDICARE ==
--- NOTE | 2021-06-02 14:06 | BD ---
EXAMINATION TYPE: Axial Bone Density DATE OF EXAM: 06/02/2021 COMPARISON: 02/22/2001 CLINICAL HISTORY: Height: 60.4 IN Weight: 143 LBS FRAX RISK QUESTIONS: History of Fracture in Adulthood: LT TOES AND LT ANKLE AGE 62 Secondary Osteoporosis: 3. Menopause before 45: AGE 41 RISK FACTORS HISTORY OF: Active: YES Postmenopausal woman: AGE 41 Take estrogen and/or progesterone medications: ESTROGEN FOR 1 MONTH MEDICATIONS: Additional Medications: VIT D, ESTROGEN,HEART MEDS, GOUT MEDS,ANASTROZOLE Additional History: BREAST CA WITH RADIATION EXAM MEASUREMENTS: Bone mineral densitometry was performed using the [employer] System. Bone mineral density as measured about the Lumbar spine is: ----- L1-L4(G/cm2): 1.095 T Score Values are as follows: ----- L2: -2.3 ----- L3: -0.6 ----- L4: 0.9 ----- L1-L4: -0.7 Bone mineral density has: Increased 15.0% since study of: 02/22/2001 Bone mineral density about the R hip (g/cm2): 0.708 Bone mineral density about the L hip (g/cm2): 0.638 T Score values are as follows: -----R Neck: -2.4 -----L Neck: -2.9 -----R Total: -1.8 -----L Total: -1.8 Bone mineral density has: Decreased -3.1% since study of: 02/22/2001 IMPRESSION: Osteoporosis (T Score less than -2.5). There is increased fracture risk and therapy is usually indicated based on age. Re-Screen 1-2 years. NOTE: T-SCORE=SD OF THE YOUNG ADULT MEAN.
== END | disposition home or self-care (01) ==
LOC: RADBDWWP 13:25
PROVIDERS: ATTEND Internal Medicine Hematology & Oncology
DX: Z13.820 Encounter for screening for osteoporosis (principal); M81.8 Other osteoporosis without current pathological fracture
CPT/HCPCS: 77080

== ENCOUNTER 2021-06-09 12:45 | Day surgery (SDC) | payer MEDICARE ==
[2021-06-09] MEDS ORDERED: SODIUM CHLORIDE 0.9% 500 ML 500 ML IV ONE (13:30)
[2021-06-09] MEDS ORDERED: LIDOCAINE 1% INJ 10MG/ML (20 ML MDV) SQ ONE (14:05)
--- NOTE | 2021-06-09 14:37 | P.PCN ---
Preoperative Diagnosis: Diagnosis Oozing of dark red blood from the lateral aspect of the wound Minimal opening at the lateral end of the wound of the ICD IV antibiotics administered Procedure The left pectoral area was prepped and draped She soaks sutures were applied to the lateral aspect and the wound was dressed Plan Oral antibiotics, Keflex for 5 days Follow-up in the device clinic in one week
[2021-06-09 15:10] LABS: INR 1.7 (<1.2); Prothrombin Time 17.3 sec (9.0-12.0)
== END 2021-06-09 14:53 | disposition home or self-care (01) ==
LOC: CATHCVL 12:45
PROVIDERS: ATTEND Internal Medicine Clinical Cardiac Electrophysiology
DX: S21.109A Unspecified open wound of unspecified front wall of thorax without penetration into thoracic cavity, initial encounter (principal)
CPT/HCPCS: 33222; 85610; J0690; J2001

== ENCOUNTER 2021-06-23 09:03 | Day surgery (SDC) | payer MEDICARE ==
[2021-06-23] MEDS ORDERED: LIDOCAINE 1% INJ 10MG/ML (20 ML MDV) ONE (09:05)
[2021-06-23] MEDS ORDERED: CEPHALEXIN 500 MG CAP PO STA (09:07)
--- NOTE | 2021-06-23 09:44 | P.PCN ---
Preoperative Diagnosis: Diagnoses Nonhealing incision post pacemaker implant Final diagnosis Non-dissolving suture under the skin, Vicryl resulting in nonhealing of the incision on its lateral aspect only No evidence for infection Procedure Under sterile precautions and local anesthesia and incision was made along the lateral aspect of the wound for about half centimeter This exposed the Vicryl suture with a not The suture was removed The edges of the wound looked fresh 3 silk sutures were applied and the wound was closed and dressed per protocol Oral antibiotics administered Plan Oral antibiotics for 5 days Reassess this Wednesday Suture removal next week
== END 2021-06-23 09:37 | disposition home or self-care (01) ==
LOC: CATHCVL 09:03
PROVIDERS: ATTEND Internal Medicine Clinical Cardiac Electrophysiology
DX: Z53.9 Procedure and treatment not carried out, unspecified reason (principal); Z95.0 Presence of cardiac pacemaker

== ENCOUNTER → 2021-07-25 | Outpatient (CLI) | payer MEDICARE ==
[2021-07-25 08:46] LABS: Appearance,Urine Clear (Clear); Bilirubin,Urine Negative (Negative); Blood,Urine Negative (Negative); Color,Urine Light Yellow; Glucose,Urine (UA) Negative (Negative); Ketones,Urine Negative (Negative); Leukocyte Esterase,Urine Moderate (Negative); Nitrite,Urine Negative (Negative); PH, Urine 5.5 (5.0-8.0); Protein,Urine Negative (Negative); RBC,Urine 1 /hpf (0-5); Squamous Epithelial Cell,Urine <1 /hpf (0-4); Urobilinogen,Urine <2.0 mg/dL (<2.0); WBC,Urine 8 /hpf (0-5)
[2021-07-25 11:21] LABS: HCT 44.1 % (37.2-46.3); HGB 14.1 g/dL (12.0-15.0); MCH 30.7 pg (27.0-32.0); MCV 95.9 fL (80.0-97.0); Mean Platelet Volume 9.7 fL (9.5-12.2); Platelet Count 187 X 10*3/uL (140-440); RDW 13.6 % (11.5-14.5); WBC 6.03 X 10*3/uL (4.50-10.00)
[2021-07-25 15:38] LABS: % Iron Saturation 26.36 (12.00-45.00); African American GFR (CKD) 88.6 (60.0-200.0); Albumin 4.7 g/dL (3.8-4.9); Albumin/Globulin Ratio 2.15 (1.60-3.17); Anion Gap 15.5 mmol/L (4.00-12.00); BUN/Creat Ratio 42.54 Ratio (12.00-20.00); Blood Urea Nitrogen 32.8 mg/dL (9.0-27.0); Calcium 9.5 mg/dL (8.7-10.3); Carbon Dioxide 22.5 mmol/L (21.6-31.8); Globulin 2.2 g/dL (1.6-3.3); Magnesium 2.2 mg/dL (1.5-2.4); Non-African American GFR(CKD) 76.5 (60.0-200.0); Potassium 3.5 mmol/L (3.5-5.5); Total Bilirubin 0.4 mg/dL (0.30-1.20); Total Protein 6.8 g/dL (6.2-8.2); Uric Acid 5.1 mg/dL (2.9-7.7)
== END | disposition home or self-care (01) ==
LOC: LABWHC1 07:26
PROVIDERS: ATTEND Nurse Practitioner Family
DX: N18.30 Chronic kidney disease, stage 3 unspecified (principal); E55.9 Vitamin D deficiency, unspecified; N39.0 Urinary tract infection, site not specified; D64.9 Anemia, unspecified; M10.9 Gout, unspecified
CPT/HCPCS: 36415; 80053; 81001; 82306; 82728; 83540; 83550; 83735; 84550; 85027

== ENCOUNTER → 2021-11-04 | Outpatient (CLI) | payer MEDICARE ==
--- NOTE | 2021-11-06 12:09 | MM ---
Reason for exam: additional evaluation requested from prior study. Last mammogram was performed 1 year ago. History: Patient is postmenopausal and has history of breast cancer at age 75. Family history of breast cancer in sister at age 62 and breast cancer in maternal aunt. Malignant MG pre op needle loc LT of the left breast, December 31, 2020. Lumpectomy of the left breast, December 31, 2020. Malignant US biopsy breast VAD LT of the left breast, November 04, 2020. Took hormonal contraceptives for 8 years beginning at age 23. Taking antineoplastic beginning at age 75. Physical Findings: Nurse did not find any significant physical abnormalities on exam. MG Diagnostic Mammo w CAD SYED Bilateral CC and MLO view(s) were taken. XCCM and CV view(s) were taken of the right breast. LM view(s) were taken of the left breast. Prior study comparison: November 04, 2020, left breast MG diagnostic mammo LT wo CAD. October 30, 2020, bilateral MG 3d diag mammo w/cad SYED. There are scattered fibroglandular densities. Left pacemaker generator. Post surgical and post therapy change left breast. Benign secretory calcifications are noted on the left. 6 month follow up to assess for any evolving post therapy changes. These results were verbally communicated with the patient and result sheet given to the patient on 11/04/21. ASSESSMENT: Probably benign, BI-RAD 3 RECOMMENDATION: Follow-up diagnostic mammogram of the left breast in 6 months.
== END | disposition home or self-care (01) ==
LOC: RADMAMWWP 08:22
PROVIDERS: ATTEND Surgery
DX: R92.8 Other abnormal and inconclusive findings on diagnostic imaging of breast (principal); Z85.3 Personal history of malignant neoplasm of breast; Z78.0 Asymptomatic menopausal state; Z80.3 Family history of malignant neoplasm of breast
CPT/HCPCS: 77066

== ENCOUNTER → 2022-02-06 | Outpatient (CLI) | payer MEDICARE ==
[2022-02-06 10:27] LABS: HCT 46.9 % (37.2-46.3); HGB 14.9 g/dL (12.0-15.0); MCH 30.3 pg (27.0-32.0); MCHC 31.8 g/dL (32.0-37.0); MCV 95.3 fL (80.0-97.0); Mean Platelet Volume 9.8 fL (9.5-12.2); NRBC Per 100 WBC 0 /100 WBCS (0.0-0.0); Platelet Count 233 X 10*3/uL (140-440); RBC 4.92 X 10*6/uL (4.10-5.20); RDW 13.9 % (11.5-14.5); WBC 5.86 X 10*3/uL (4.50-10.00)
[2022-02-06 10:47] LABS: % Iron Saturation 28.66 (12.00-45.00); African American GFR (CKD) 58.6 (60.0-200.0); Albumin 4.9 g/dL (3.8-4.9); Albumin/Globulin Ratio 2.01 (1.60-3.17); Anion Gap 12.4 mmol/L (10.00-18.00); BUN/Creat Ratio 27.41 Ratio (12.00-20.00); Blood Urea Nitrogen 29.6 mg/dL (9.0-27.0); Calcium 10.3 mg/dL (8.7-10.3); Carbon Dioxide 24.9 mmol/L (20.0-27.5); Globulin 2.4 g/dL (1.6-3.3); Magnesium 2.2 mg/dL (1.5-2.4); Non-African American GFR(CKD) 50.5 (60.0-200.0); Phosphorus 3.9 mg/dL (2.4-5.1); Potassium 4.1 mmol/L (3.5-5.5); Total Bilirubin 0.5 mg/dL (0.30-1.20); Total Protein 7.4 g/dL (6.2-8.2); Uric Acid 6.1 mg/dL (2.9-7.7)
[2022-02-06 13:10] LABS: Appearance,Urine Clear (Clear); Bacteria,Urine None Seen /HPF (None Seen); Bilirubin,Urine Negative (Negative); Blood,Urine Negative (Negative); Color,Urine Yellow (Yellow); Ketones,Urine Negative (Negative); Nitrite,Urine Negative (Negative); Urobilinogen,Urine 0.2 (0.2,1.0)
== END | disposition home or self-care (01) ==
LOC: LABWHC1 07:17
PROVIDERS: ATTEND Internal Medicine
DX: N18.2 Chronic kidney disease, stage 2 (mild) (principal); D64.9 Anemia, unspecified; N39.0 Urinary tract infection, site not specified; N25.81 Secondary hyperparathyroidism of renal origin; E55.9 Vitamin D deficiency, unspecified; M10.9 Gout, unspecified
CPT/HCPCS: 36415; 80053; 81001; 82306; 82728; 83540; 83550; 83735; 83970; 84100; 84550; 85027

== ENCOUNTER → 2022-05-05 | Outpatient (CLI) | payer MEDICARE ==
--- NOTE | 2022-05-05 09:49 | MM ---
Reason for Exam: Follow-up at short interval from prior study. Last screening mammogram was performed 6 month(s) ago. Patient History: Menarche at age 16. First Full-Term at age 22. Postmenopausal. Breast cancer, left, age 75. Hormonal Contraceptives for 8 years from age 23 until age 31. 12/31/2020, Lumpectomy on the Left side. 12/31/2020, Malignant Core Biopsy on the left side. 11/04/2020, Malignant Core Biopsy on the left side. Maternal aunt had breast cancer. Sister had breast cancer, age 62. Prior Study Comparison: 10/30/2020 Bilateral Diagnostic Mammogram, [facility]. 11/04/2020 Left Diagnostic Mammogram, [facility]. 11/04/2021 Bilateral Diagnostic Mammogram, [facility]. Tissue Density: Left: The breast tissue is heterogeneously dense. This may lower the sensitivity of mammography. Findings: Analyzed By CAD. Postoperative changes of left-sided lumpectomy with associated distortion. No evidence for mass is time. Overall Assessment: Benign, BI-RAD 2 Management: Diagnostic Mammogram of both breasts in 6 months. A clinical breast exam by your physician is recommended on an annual basis and results should be correlated with mammographic findings. This exam should not preclude additional follow-up of suspicious palpable abnormalities. Results were given to the patient verbally at the time of exam. Electronically signed and approved by: Tyrone Millard M.D. Radiologis
== END | disposition home or self-care (01) ==
LOC: RADMAMWWP 09:22
PROVIDERS: ATTEND Internal Medicine Hematology & Oncology
DX: C50.512 Malignant neoplasm of lower-outer quadrant of left female breast (principal)
CPT/HCPCS: 77065

== ENCOUNTER 2022-05-25 23:17 | Emergency (ER) | payer MEDICARE ==
--- NOTE | 2022-05-26 00:07 | ED ---
Abdominal Pain HPI - General Chief Complaint: Abdominal Pain Stated Complaint: Painful Bruised Lump on abdomen Time Seen by Provider: 05/25/22 23:55 Source: patient Mode of arrival: ambulatory Limitations: no limitations - Related Data Home Medications Medication Instructions Recorded Confirmed Spironolactone [Aldactone] 25 mg PO DAILY 07/25/18 06/09/21 Furosemide [Lasix] 20 mg PO DAILY 01/12/19 06/09/21 Losartan [Cozaar] 12.5 mg PO HS 01/12/19 06/09/21 Metoprolol Succinate [Toprol XL] 12.5 mg PO DAILY 01/12/19 06/09/21 Pravastatin Sodium 80 mg PO HS 01/12/19 06/09/21 allopurinoL [Zyloprim] 100 mg PO HS 01/12/19 06/09/21 Nitroglycerin Sl Tabs [Nitrostat] 0.4 mg SUBLINGUAL Q5M PRN 01/26/19 06/09/21 Healthy Eyes 1 tab PO HS 12/25/20 06/09/21 Anastrozole [Arimidex] 1 mg PO DAILY 05/15/21 06/09/21 Cholecalciferol [Vitamin D3 (25 25 mcg PO HS 05/15/21 06/09/21 Mcg = 1000 Iu)] Warfarin [Coumadin] 2.5 mg PO DIRECTED 05/15/21 06/09/21 Warfarin [Coumadin] 5 mg PO SUTUWETHSA 05/15/21 06/09/21 Previous Rx's Medication Instructions Recorded Aspirin 81 mg PO DAILY #30 chew 02/10/18 Isosorbide Mononitrate ER [Imdur] 30 mg PO DAILY #90 tab.er.24h 01/13/19 Allergies Allergy/AdvReac Type Severity Reaction Status Date / Time atorvastatin calcium Allergy Swelling Verified 05/25/22 23:20 [From Lipitor] benazepril Allergy irregular Verified 05/25/22 23:20 heart rate amlodipine AdvReac muscle Verified 05/25/22 23:20 cramps Review of Systems ROS Statement: Those systems with pertinent positive or pertinent negative responses have been documented in the HPI. ROS Other: All systems not noted in ROS Statement are negative. 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, pigeon breeders disease, left breast cancer, radiation, last 03/04/21 Last Myocardial Infarction Date:: History of Any Multi-Drug Resistant Organisms: None Reported Past Surgical History: AICD, Breast Surgery, Coronary Bypass/CABG, Heart Catheterization Additional Past Surgical History / Comment(s): "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, CABG 4 vessels in 2017, D&C hysteroscopy for endometrial polyps, left breast biopsy, left lumpectomy 12/31/20 Past Anesthesia/Blood Transfusion Reactions: Motion Sickness Additional Past Anesthesia/Blood Transfusion Reaction / Comment(s): past blood transfusion with CABG-no reaction Past Psychological History: No Psychological Hx Reported Smoking Status: Former smoker Past Alcohol Use History: None Reported Past Drug Use History: None Reported - Past Family History Mother Family Medical History: Myocardial Infarction (ID) Additional Family Medical History / Comment(s): Mother of a ID at the age of 69yrs. Father Family Medical History: Myocardial Infarction (ID) Additional Family Medical History / Comment(s): Father of a ID at the age of 69 yrs Brother(s) Family Medical History: Neurologic Disorder Sister(s) Family Medical History: Cancer Additional Family Medical History / Comment(s): breast cancer General Exam Limitations: no limitations Course Vital Signs 05/25/22 23:20 Temperature 98.1 F Pulse Rate 75 Respiratory 16 Rate Blood Pressure 169/73 O2 Sat by Pulse 96 Oximetry Medical Decision Making - Lab Data Result diagrams: 05/26/22 00:05 05/26/22 00:05 Lab Results 05/26/22 05/26/22 05/26/22 Range/Units 00:05 00:05 00:05 WBC 8.8 (3.8-10.6) k/uL RBC 4.99 (3.80-5.40) m/uL Hgb 15.7 (11.4-16.0) gm/dL Hct 46.7 H (34.0-46.0) % MCV 93.6 (80.0-100.0) fL MCH 31.5 (25.0-35.0) pg MCHC 33.6 (31.0-37.0) g/dL RDW 14.3 (11.5-15.5) % Plt Count 231 (150-450) k/uL MPV 7.0 Neutrophils % 76 % Lymphocytes % 13 % Monocytes % 6 % Eosinophils % 3 % Basophils % 1 % Neutrophils # 6.7 (1.3-7.7) k/uL Lymphocytes # 1.2 (1.0-4.8) k/uL Monocytes # 0.6 (0-1.0) k/uL Eosinophils # 0.3 (0-0.7) k/uL Basophils # 0.1 (0-0.2) k/uL PT 22.5 H (9.0-12.0) sec INR 2.2 H (<1.2) APTT 33.6 H (22.0-30.0) sec Sodium 136 L (137-145) mmol/L Potassium 4.1 (3.5-5.1) mmol/L Chloride 102 (98-107) mmol/L Carbon Dioxide 23 (22-30) mmol/L Anion Gap 11 mmol/L BUN 38 H (7-17) mg/dL Creatinine 1.28 H (0.52-1.04) mg/dL Est GFR (CKD-EPI)AfAm 48 (>60 ml/min/1.73 sqM) Est GFR (CKD-EPI)NonAf 42 (>60 ml/min/1.73 sqM) Glucose 84 (74-99) mg/dL Calcium 10.0 (8.4-10.2) mg/dL Total Bilirubin 0.7 (0.2-1.3) mg/dL AST 33 (14-36) U/L ALT 28 (4-34) U/L Alkaline Phosphatase 71 (38-126) U/L Total Protein 8.3 H (6.3-8.2) g/dL Albumin 5.1 H (3.5-5.0) g/dL Amylase 100 (30-110) U/L Lipase 281 (23-300) U/L Disposition Clinical Impression: Abdominal pain, Superficial bruising of abdominal wall Disposition: HOME SELF-CARE Condition: Good Instructions (If sedation given, give patient instructions): Hematoma (ED) Is patient prescribed a controlled substance at d/c from ED?: No Referrals: Ramón Pollack MD [Primary Care Provider] - 1-2 days
[2022-05-26 00:34] LABS: Basophils # (A) 0.1 k/uL (0-0.2); Basophils % (A) 1 %; Eosinophils # (A) 0.3 k/uL (0-0.7); Eosinophils % (A) 3 %; HCT 46.7 % (34.0-46.0); HGB 15.7 gm/dL (11.4-16.0); Lymphocytes # (A) 1.2 k/uL (1.0-4.8); Lymphocytes % (A) 13 %; MCH 31.5 pg (25.0-35.0); MCHC 33.6 g/dL (31.0-37.0); MCV 93.6 fL (80.0-100.0); Monocytes # (A) 0.6 k/uL (0-1.0); Monocytes % (A) 6 %; Neutrophils # (A) 6.7 k/uL (1.3-7.7); Neutrophils % (A) 76 %; Platelet Count 231 k/uL (150-450); RBC 4.99 m/uL (3.80-5.40); RDW 14.3 % (11.5-15.5); WBC 8.8 k/uL (3.8-10.6)
[2022-05-26 00:43] LABS: INR 2.2 (<1.2); Partial Thromboplastin Time 33.6 sec (22.0-30.0); Prothrombin Time 22.5 sec (9.0-12.0)
[2022-05-26 00:45] LABS: Albumin 5.1 g/dL (3.5-5.0); Potassium 4.1 mmol/L (3.5-5.1); Total Bilirubin 0.7 mg/dL (0.2-1.3); Total Protein 8.3 g/dL (6.3-8.2)
--- NOTE | 2022-05-26 00:46 | CT ---
EXAMINATION TYPE: CT abdomen pelvis wo con DATE OF EXAM: 05/26/2022 COMPARISON: None HISTORY: Bruise to abdomen with no trauma. Prior on synapse. Pt on warfin CT DLP: 573.9 mGycm Automated exposure control for dose reduction was used. Images obtained from the diaphragm to the floor the pelvis with no contrast. The lung bases are clear. No pleural effusion. Heart size is normal. No pericardial effusion. Liver spleen stomach pancreas appear intact. There are numerous calcified gallstones. Gallbladder is contracted around gallstones. The bile ducts are not dilated. There is no adrenal mass. Kidneys show normal size and contour. No hydronephrosis. Ureters are not di lated. There is no retroperitoneal adenopathy. Bladder distends smoothly. No inguinal hernia. No free fluid in the pelvis. Uterus appears intact. No pelvic mass. The lumbar spine is intact. The spondylo tic changes at L3-4 and L4-5. No compression fracture. The bony pelvis is intact There is no mesenteric edema. No ascites or free air. No sign of a bowel obstruction. Appendix not se en. No significant appendix. There is some minimal skin thickening and subcutaneous density over the anterior right mid abdomen. IMPRESSION: No acute abnormality of the abdomen and pelvis. There is small area of subcutaneous density over the right anterior mid abdomen that could be some br uising measuring 2 cm.
[2022-05-26 01:03] LABS: T4, Free (Free Thyroxine) 1.08 ng/dL (0.78-2.19)
[2022-05-26 01:16] VITALS: BP 142/78; PULSE 72; RESP 18; TEMP 97
== END 2022-05-26 01:16 | disposition home or self-care (01) ==
LOC: EC 23:17
DX: S30.1XXA Contusion of abdominal wall, initial encounter (principal); I48.91 Unspecified atrial fibrillation; I25.10 Atherosclerotic heart disease of native coronary artery without angina pectoris; E78.5 Hyperlipidemia, unspecified; I25.2 Old myocardial infarction; I12.9 Hypertensive chronic kidney disease with stage 1 through stage 4 chronic kidney disease, or unspecified chronic kidney disease; N18.9 Chronic kidney disease, unspecified; Z87.891 Personal history of nicotine dependence; Z88.8 Allergy status to other drugs, medicaments and biological substances; Z88.5 Allergy status to narcotic agent; Z79.82 Long term (current) use of aspirin; Z79.899 Other long term (current) drug therapy; X58.XXXA Exposure to other specified factors, initial encounter
CPT/HCPCS: 36415; 74176; 80053; 82150; 83690; 84439; 84443; 85025; 85610; 85730; 99284

== ENCOUNTER → 2022-06-08 | Outpatient (CLI) | payer MEDICARE ==
[2022-06-08 14:42] LABS: HCT 46.8 % (37.2-46.3); HGB 15.2 g/dL (12.0-15.0); MCH 30.5 pg (27.0-32.0); MCHC 32.5 g/dL (32.0-37.0); MCV 93.8 fL (80.0-97.0); Mean Platelet Volume 10.6 fL (9.5-12.2); NRBC Per 100 WBC 0 /100 WBCS (0.0-0.0); Platelet Count 235 X 10*3/uL (140-440); RBC 4.99 X 10*6/uL (4.10-5.20); RDW 13.8 % (11.5-14.5); WBC 6.16 X 10*3/uL (4.50-10.00)
[2022-06-08 14:47] LABS: % Iron Saturation 28.11 (12.00-45.00); African American GFR (CKD) 54.9 (60.0-200.0); Albumin 4.9 g/dL (3.8-4.9); Albumin/Globulin Ratio 2.05 (1.60-3.17); Anion Gap 14.9 mmol/L (10.00-18.00); BUN/Creat Ratio 21.4 Ratio (12.00-20.00); Blood Urea Nitrogen 24.4 mg/dL (9.0-27.0); Calcium 9.7 mg/dL (8.7-10.3); Carbon Dioxide 22.8 mmol/L (20.0-27.5); Globulin 2.4 g/dL (1.6-3.3); Magnesium 2.4 mg/dL (1.5-2.4); Non-African American GFR(CKD) 47.3 (60.0-200.0); Phosphorus 3.8 mg/dL (2.4-5.1); Potassium 4.1 mmol/L (3.5-5.5); Total Bilirubin 0.5 mg/dL (0.30-1.20); Total Protein 7.2 g/dL (6.2-8.2); Uric Acid 6.5 mg/dL (2.9-7.7)
[2022-06-08 19:39] LABS: Appearance,Urine Clear (Clear); Bilirubin,Urine Negative (Negative); Blood,Urine Negative (Negative); Color,Urine Yellow (Yellow); Ketones,Urine Negative (Negative); Nitrite,Urine Negative (Negative); PH, Urine 5.5 (5.0-8.0)
[2022-06-08 20:13] LABS: Bacteria,Urine None Seen /HPF (None Seen)
== END | disposition home or self-care (01) ==
LOC: LABWHC1 08:29
PROVIDERS: ATTEND Nurse Practitioner Family
DX: E55.9 Vitamin D deficiency, unspecified (principal); D64.9 Anemia, unspecified; M10.9 Gout, unspecified; N39.0 Urinary tract infection, site not specified; N25.81 Secondary hyperparathyroidism of renal origin; N18.2 Chronic kidney disease, stage 2 (mild); R80.9 Proteinuria, unspecified
CPT/HCPCS: 36415; 80053; 81001; 82043; 82306; 82570; 82728; 83540; 83550; 83735; 83970; 84100; 84550; 85027

== ENCOUNTER 2022-07-19 00:12 | Emergency (ER) | payer MEDICARE ==
[2022-07-19 00:18] VITALS: BP 172/97; PULSE 61; RESP 18; TEMP 97.9
== END 2022-07-19 03:24 | disposition left against medical advice (07) ==
LOC: EC 00:12
DX: Z53.21 Procedure and treatment not carried out due to patient leaving prior to being seen by health care provider (principal)
CPT/HCPCS: 87635; 93005; 99499

== ENCOUNTER → 2022-11-16 | Outpatient (CLI) | payer MEDICARE ==
--- NOTE | 2022-11-17 08:44 | MM ---
Reason for Exam: Screening (asymptomatic). Last screening mammogram was performed 12 month(s) ago. Patient History: Menarche at age 16. First Full-Term at age 22. Postmenopausal. Breast cancer, left, age 75. Hormonal Contraceptives for 8 years from age 23 until age 31. 12/31/2020, Lumpectomy on the Left side. 12/31/2020, Malignant Core Biopsy on the left side. 11/04/2020, Malignant Core Biopsy on the left side. Maternal aunt had breast cancer. Sister had breast cancer, age 62. Prior Study Comparison: 11/04/2020 Left Diagnostic Mammogram, [facility]. 11/04/2021 Bilateral Diagnostic Mammogram, [facility]. 05/05/2022 Left MG diagnostic mammo LT w CAD, [facility]. Tissue Density: There are scattered fibroglandular densities. Findings: Analyzed By CAD. There is no suspicious group of microcalcifications or new suspicious mass in either breast. Overall Assessment: Negative, BI-RAD 1 Management: Screening Mammogram of both breasts in 1 year. A clinical breast exam by your physician is recommended on an annual basis and results should be correlated with mammographic findings. Electronically signed and approved by: Tyrone Millard M.D. Radiologis
== END | disposition home or self-care (01) ==
LOC: RADMAMWWP 10:39
PROVIDERS: ATTEND Internal Medicine Hematology & Oncology
DX: Z12.31 Encounter for screening mammogram for malignant neoplasm of breast (principal); Z78.0 Asymptomatic menopausal state; Z85.3 Personal history of malignant neoplasm of breast; Z80.3 Family history of malignant neoplasm of breast; Z98.890 Other specified postprocedural states
CPT/HCPCS: 77063; 77067

== ENCOUNTER → 2023-06-03 | Outpatient (CLI) | payer MEDICARE ==
--- NOTE | 2023-06-03 12:19 | BD ---
EXAMINATION TYPE: Axial Bone Density DATE OF EXAM: 06/03/2023 CLINICAL HISTORY: 77 years old Female. ICD-10 CODE: Z79.890 HORMONE REPLACEMENT THERAPY Height: Weight: FRAX RISK QUESTIONS: History of Fracture in Adulthood: yes Secondary Osteoporosis: yes 3. Menopause before 45: yes, 41 RISK FACTORS HISTORY OF: hx of ankle and toe fxs bilateral, as an adult Postmenopausal woman: yes, 41 hormones for a month, none now Frequent falls: using wheelie walker Hyperparathyroidism: no Adrenal Insufficiency: no MEDICATIONS: Osteoporosis Medications: in the past only Additional Medications: bp med, lt breast ca, with radiation, cholesterol med, Anastrozole, renal, hx of calculi, Additional History: hx of breast ca with radiation, cholesterol, renal, hypertension, EXAM MEASUREMENTS: Bone mineral densitometry was performed using the [employer] System. Bone mineral density as measured about the Lumbar spine is: ----- L1-L4(G/cm2): 1.061 T Score Values are as follows: ----- L1: -1.0 ----- L2: -2.3 ----- L3: -1.1 ----- L4: 0.5 ----- L1-L4: -1.0 Z Score Values are as follows: ----- L1: 0.6 ----- L2: -0.7 ----- L3: 0.5 ----- L4: 2.0 ----- L1-L4: 0.6 Bone mineral density has: Decreased -3.1% since study of: 06.02.2021 Bone mineral density about the R hip (g/cm2): 0.817 Bone mineral density about the L hip (g/cm2): 0.769 T Score values are as follows: -----R Neck: -2.5 -----L Neck: -3.3 -----R Total: -1.5 -----L Total: -1.9 Z Score values are as follows: -----R Neck: -0.7 -----L Neck: -1.5 -----R Total: 0.1 -----L Total: -0.3 Bone mineral density has: Increased 1.4% since study of: 06.02.2021 FRAX%s: The graph provided illustrates a 30.0% chance for a major osteoporotic fx and a 14.9% chance for the hips probability for fx in 10 years time. IMPRESSION: Osteoporosis (T Score less than -2.5). There is increased fracture risk and therapy is usually indicated based on age. Re-Screen 1-2 years. NOTE: T-SCORE=SD OF THE YOUNG ADULT MEAN.
== END | disposition home or self-care (01) ==
LOC: RADBDWWP 11:01
PROVIDERS: ATTEND Internal Medicine Hematology & Oncology
DX: M81.0 Age-related osteoporosis without current pathological fracture (principal); M85.89 Other specified disorders of bone density and structure, multiple sites; Z79.890 Hormone replacement therapy; Z78.0 Asymptomatic menopausal state
CPT/HCPCS: 77080

== ENCOUNTER → 2023-07-14 | Outpatient (CLI) | payer MEDICARE ==
[2023-07-14 16:22] LABS: HCT 44.6 % (37.2-46.3); HGB 14.1 d/dL (12.0-15.0); MCH 30.4 pg (27.0-32.0); MCHC 31.6 d/dL (32.0-37.0); MCV 96.1 FL (80.0-97.0); Mean Platelet Volume 10.4 FL (9.5-12.2); NRBC Per 100 WBC 0 X 10*3/uL (0.00-0.01); Platelet Count 222 X 10*3/uL (140-440); RBC 4.64 X 10*6/uL (4.10-5.20); WBC 7.53 X 10*3/uL (4.50-10.00)
[2023-07-14 16:34] LABS: Appearance,Urine Clear (Clear); Bacteria,Urine None Seen (None Seen); Bilirubin,Urine Negative (Negative); Blood,Urine Negative (Negative); Color,Urine Yellow (Yellow); Ketones,Urine Negative (Negative); Nitrite,Urine Negative (Negative); PH, Urine 5.5; Specific Gravity,Urine 1.017 (1.001-1.030)
[2023-07-14 16:56] LABS: % Iron Saturation 38.32 (12.00-45.00); Magnesium 2.1 mg/dL (1.5-2.4); Uric Acid 6.3 mg/dL (2.9-7.7)
[2023-07-14 18:50] LABS: Microalbumin Creatinine Ratio <14 mg/g Cr (0-30); Urine Creatinine 86.7 mg/dL (28.0-217.0)
== END | disposition home or self-care (01) ==
LOC: LABWHC1 08:59
PROVIDERS: ATTEND Internal Medicine
DX: E55.9 Vitamin D deficiency, unspecified (principal); D63.1 Anemia in chronic kidney disease; N39.0 Urinary tract infection, site not specified; N25.81 Secondary hyperparathyroidism of renal origin; M10.9 Gout, unspecified; R80.9 Proteinuria, unspecified
CPT/HCPCS: 36415; 81001; 82043; 82306; 82570; 82728; 83540; 83550; 83735; 83970; 84100; 84550; 85027

== ENCOUNTER → 2023-11-09 | Outpatient (CLI) | payer MEDICARE ==
[2023-11-09 14:55] LABS: HCT 46.1 % (37.2-46.3); HGB 15.1 g/dL (12.0-15.0); MCH 30.9 pg (27.0-32.0); MCHC 32.8 g/dL (32.0-37.0); MCV 94.3 FL (80.0-97.0); Mean Platelet Volume 10.1 FL (9.5-12.2); NRBC Per 100 WBC 0 X 10*3/uL (0.00-0.01); Platelet Count 236 X 10*3/uL (140-440); RBC 4.89 X 10*6/uL (4.10-5.20); RDW 13.5 % (11.5-14.5); WBC 6.33 X 10*3/uL (4.50-10.00)
[2023-11-09 15:31] LABS: Appearance,Urine Turbid (Clear); Bilirubin,Urine Negative (Negative); Blood,Urine Negative (Negative); Color,Urine Yellow (Yellow); Ketones,Urine Trace (Negative); Nitrite,Urine Negative (Negative); PH, Urine 5.5; Specific Gravity,Urine 1.024 (1.001-1.030)
[2023-11-09 15:35] LABS: % Iron Saturation 30.48 (12.00-45.00); ALT 30 U/L (8-44); AST 21 U/L (13-35); Albumin 4.6 g/dL (3.8-4.9); Albumin/Globulin Ratio 1.92 Ratio (1.60-3.17); Alkaline Phosphatase 65 U/L (41-126); BUN/Creat Ratio 22.91 Ratio (12.00-20.00); Blood Urea Nitrogen 25.2 mg/dL (9.0-27.0); Calcium 9.8 mg/dL (8.7-10.3); Carbon Dioxide 22.8 mmol/L (21.6-31.8); Chloride 104 mmol/L (96-109); Globulin 2.4 g/dL (1.6-3.3); Glucose 86 mg/dL (70-110); Iron 96 UG/DL (50-170); Magnesium 2.5 mg/dL (1.5-2.4); Phosphorus 3.3 mg/dL (2.4-5.1); Potassium 4.3 mmol/L (3.5-5.5); Sodium 140 mmol/L (135-145); Total Bilirubin 0.4 mg/dL (0.3-1.2); Total Iron Binding Capacity 315 UG/DL (228-460); Uric Acid 7.4 mg/dL (2.9-7.7)
[2023-11-09 16:15] LABS: Bacteria,Urine None Seen (None Seen)
[2023-11-10 14:33] LABS: Free Kappa Lt Chain Qnt, Serum 1.96 mg/dL (0.33-1.94); Free Lambda Lt Chain Qnt, Seru 1.69 mg/dL (0.57-2.63)
== END | disposition home or self-care (01) ==
LOC: LABWHC1 09:27
PROVIDERS: ATTEND Internal Medicine
DX: E55.9 Vitamin D deficiency, unspecified (principal); M10.9 Gout, unspecified; N18.2 Chronic kidney disease, stage 2 (mild); D63.1 Anemia in chronic kidney disease; N39.0 Urinary tract infection, site not specified; N25.81 Secondary hyperparathyroidism of renal origin; R80.9 Proteinuria, unspecified
CPT/HCPCS: 36415; 80053; 81001; 82043; 82306; 82570; 82728; 83540; 83550; 83735; 83883; 83970; 84100; 84166; 84550; 85027; 86334

== ENCOUNTER → 2023-11-17 | Outpatient (CLI) | payer MEDICARE ==
--- NOTE | 2023-11-17 20:39 | MM ---
Reason for Exam: Screening (asymptomatic). Last screening mammogram was performed 12 month(s) ago. Indicated Problems: Skin thickening or retraction. Patient History: Menarche at age 16. First Full-Term at age 22. Postmenopausal. Breast cancer, left, age 75. Hormonal Contraceptives for 8 years from age 23 until age 31. 12/31/2020, Lumpectomy on the Left side. 12/31/2020, Malignant Core Biopsy on the left side. 11/04/2020, Malignant Core Biopsy on the left side. Maternal aunt had breast cancer. Sister had breast cancer, age 62. Prior Study Comparison: 11/04/2021 Bilateral Diagnostic Mammogram, [facility]. 05/05/2022 Left MG diagnostic mammo LT w CAD, [facility]. 11/16/2022 Bilateral MG 3D screening mammo w/cad, [facility]. Tissue Density: There are scattered fibroglandular densities. Findings: Analyzed By CAD. Postsurgical and posttreatment changes left breast. Generator device on the left. Benign secretory calcifications also present on the left. There is no suspicious group of microcalcifications or new suspicious mass in either breast. Overall Assessment: Benign, BI-RAD 2 Management: Screening Mammogram of both breasts in 1 year. . Patient should continue monthly self-breast exams. A clinical breast exam by your physician is recommended on an annual basis. This exam should not preclude additional follow-up of suspicious palpable abnormalities. Electronically signed and approved by: Kenneth Roldan M.D. Radiologist
== END | disposition home or self-care (01) ==
LOC: RADMAMWWP 10:28
PROVIDERS: ATTEND Internal Medicine Hematology & Oncology
DX: Z12.31 Encounter for screening mammogram for malignant neoplasm of breast (principal); Z78.0 Asymptomatic menopausal state; Z80.3 Family history of malignant neoplasm of breast; Z85.3 Personal history of malignant neoplasm of breast
CPT/HCPCS: 77063; 77067

== ENCOUNTER → 2023-12-01 | Outpatient (CLI) | payer MEDICARE ==
--- NOTE | 2023-12-01 13:37 | CT ---
EXAMINATION TYPE: CT abdomen wo con DATE OF EXAM: 12/01/2023 COMPARISON: May 26, 2022 HISTORY: spot on right kidney follow up, hx breast cancer CT DLP: 551 mGycm Automated exposure control for dose reduction was used. TECHNIQUE: Helical acquisition of images was performed from the lung bases through the top of iliac crest to include entire abdomen. CONTRAST: Performed without Oral Contrast and without IV contrast. FINDINGS: LUNG BASES: No significant abnormality is appreciated. LIVER/GB: The gallbladder is full of gallstones. No space-occupying hepatic lesion seen. PANCREAS: No significant abnormality is seen. SPLEEN: No significant abnormality is seen. ADRENALS: No significant abnormality is seen. KIDNEYS: 2 hypoattenuating lesions right kidney measuring 8.5 mm and 6 mm respectively are too small to characterize however likely reflects cysts. No distinct solid mass seen although lack of contrast does limit evaluation. Possible small cyst lower pole left kidney measuring 8 mm. BOWEL: No significant abnormality is seen. LYMPH NODES: No significant abnormality is appreciated. OSSEOUS STRUCTURES: No significant abnormality is seen. FREE AIR: No free air is visualized. OTHER: IMPRESSION: 1. Probable subcentimeter renal cysts. Lack of contrast limits evaluation. 2. The gallbladder is full of gallstones.
== END | disposition home or self-care (01) ==
LOC: RADCTMAIN 12:33
PROVIDERS: ATTEND Urology
DX: D41.01 Neoplasm of uncertain behavior of right kidney (principal); K80.20 Calculus of gallbladder without cholecystitis without obstruction; Z85.3 Personal history of malignant neoplasm of breast
CPT/HCPCS: 74150

== ENCOUNTER → 2024-05-03 | Outpatient (CLI) | payer MEDICARE ==
[2024-05-03 10:10] LABS: HCT 46.2 % (34.0-46.0); HGB 14.1 gm/dL (11.4-16.0); Hypochromasia Slight; MCH 30.4 pg (25.0-35.0); MCHC 30.5 g/dL (31.0-37.0); MCV 99.9 fL (80.0-100.0); Mean Platelet Volume 7.8; Platelet Count 185 k/uL (150-450); RBC 4.63 m/uL (3.80-5.40); RDW 13.4 % (11.5-15.5); WBC 5.6 k/uL (3.8-10.6)
[2024-05-03 15:45] LABS: Appearance,Urine Clear (Clear); Bilirubin,Urine Negative (Negative); Blood,Urine Negative (Negative); Color,Urine Yellow (Yellow); Ketones,Urine Negative (Negative); Nitrite,Urine Negative (Negative); Specific Gravity,Urine 1.015 (1.001-1.030); Urobilinogen,Urine 0.2 E.U./DL
[2024-05-03 15:51] LABS: Bacteria,Urine None Seen (None Seen)
[2024-05-03 17:58] LABS: % Iron Saturation 44.67 (12.00-45.00); ALT 24 U/L (8-44); AST 23 U/L (13-35); Albumin 4.6 g/dL (3.8-4.9); Alkaline Phosphatase 59 U/L (41-126); Blood Urea Nitrogen 19.8 mg/dL (9.0-27.0); Calcium 9.6 mg/dL (8.7-10.3); Carbon Dioxide 21.7 mmol/L (21.6-31.8); Chloride 104 mmol/L (96-109); Globulin 2.3 g/dL (1.6-3.3); Glucose 77 mg/dL (70-110); Iron 130 UG/DL (50-170); Magnesium 2.3 mg/dL (1.5-2.4); Phosphorus 3.3 mg/dL (2.4-5.1); Potassium 4.2 mmol/L (3.5-5.5); Sodium 140 mmol/L (135-145); Total Bilirubin 0.6 mg/dL (0.3-1.2); Total Iron Binding Capacity 291 UG/DL (228-460); Total Protein 6.9 g/dL (6.2-8.2); Uric Acid 6.6 mg/dL (2.9-7.7)
[2024-05-03 20:38] LABS: Microalbumin Creatinine Ratio <14 mg/g Cr (0-30); Urine Creatinine 87.1 mg/dL (28.0-217.0)
== END | disposition home or self-care (01) ==
LOC: LABWHC1 08:24
PROVIDERS: ATTEND Internal Medicine
DX: N18.2 Chronic kidney disease, stage 2 (mild) (principal); D63.1 Anemia in chronic kidney disease; N39.0 Urinary tract infection, site not specified; R80.9 Proteinuria, unspecified; E55.9 Vitamin D deficiency, unspecified; N25.81 Secondary hyperparathyroidism of renal origin; M10.9 Gout, unspecified
CPT/HCPCS: 36415; 80053; 81001; 82043; 82306; 82570; 82728; 83540; 83550; 83735; 83970; 84100; 84550; 85027

== ENCOUNTER → 2024-11-20 | Outpatient (CLI) | payer MEDICARE ==
--- NOTE | 2024-11-20 10:07 | MM ---
Reason for Exam: Screening (asymptomatic). Last screening mammogram was performed 12 month(s) ago. Patient History: Menarche at age 16. First Full-Term at age 22. Postmenopausal. Breast cancer, left, age 75. Hormonal Contraceptives for 8 years from age 23 until age 31. 12/31/2020, Lumpectomy on the Left side. 12/31/2020, Malignant Core Biopsy on the left side. 11/04/2020, Malignant Core Biopsy on the left side. Maternal aunt had breast cancer. Sister had breast cancer, age 62. Prior Study Comparison: 05/05/2022 Left MG diagnostic mammo LT w CAD, [facility]. 11/16/2022 Bilateral MG 3D screening mammo w/cad, [facility]. 11/17/2023 Bilateral MG 3D screening mammo w/cad, [facility]. Tissue Density: The breasts are almost entirely fatty. Findings: Analyzed By CAD. Cardiac conduction device obscures the left breast. Right breast: There is no suspicious group of microcalcifications or new suspicious mass. Benign-appearing calcifications right breast. Left breast: There is no suspicious group of microcalcifications or new suspicious mass. Benign-appearing calcifications left breast. Overall Assessment: Benign, BI-RAD 2 Management: Screening Mammogram of both breasts in [address] [facility] will attempt to contact patient to return for supplemental views and ultrasound if indicated. Patient should continue monthly self-breast exams. A clinical breast exam by your physician is recommended on an annual basis. This exam should not preclude additional follow-up of suspicious palpable abnormalities. Note on Viry scores and lifetime risk: 1. A Viry score greater than 3% is considered moderate risk. If this is the case, consider specialist referral to assess eligibility for a risk reducing agent. 2. If overall lifetime risk for the development of breast cancer is 20% or higher, the patient may qualify for future screening with alternating mammogram and breast MRI. [facility], , 11/20/2024 10:04 AM. Electronically signed and approved by: Moise Enrique DO
== END | disposition home or self-care (01) ==
LOC: RADMAMWWP 09:39
PROVIDERS: ATTEND Internal Medicine Hematology & Oncology
DX: Z12.31 Encounter for screening mammogram for malignant neoplasm of breast (principal); Z78.0 Asymptomatic menopausal state; Z85.3 Personal history of malignant neoplasm of breast; Z80.3 Family history of malignant neoplasm of breast; R92.313 Mammographic fatty tissue density, bilateral breasts; Z98.82 Breast implant status
CPT/HCPCS: 77063; 77067